=== PATIENT | female | born 1935 | race Hispanic/Latino ===

== ENCOUNTER 2018-11-05 16:03 | Inpatient (IN) | payer MEDICARE ==
[2018-11-05] MEDS ORDERED: NACL 0.9% 1000 ML IV ONE (16:18)
[2018-11-05] MEDS ORDERED: KEPPRA 1,000 MG/NS 0.75% 100ML 1,000 MG/100 ML BAG IV ONE (16:21)
[2018-11-05] MEDS ORDERED: VASELINE LIP THERAPY TP PRN (16:21)
[2018-11-05] MEDS ORDERED: ARTIFICIAL TEARS OPHTH OINT OU PRN (16:21)
[2018-11-05] MEDS ORDERED: ZEMURON IV ONE ×2 (16:21→17:40)
[2018-11-05] MEDS ORDERED: XYLOCAINE CARDIAC IV ONE ×2 (16:21→17:40)
[2018-11-05] MEDS ORDERED: AMIDATE IV ONE ×2 (16:21→17:40)
[2018-11-05] MEDS ORDERED: SUBLIMAZE IV PRN (16:21)
[2018-11-05] MEDS ORDERED: VERSED IV STA (16:23)
--- NOTE | 2018-11-05 16:49 | Emergency Department Report ---
ED Neuro Deficit HPI - General Stated Complaint: POSS HEART FAILURE Time Seen by Provider: 11/05/18 16:18 - History of Present Illness Initial Comments: [facility] Date of Service: 11/05/18 Impression: Seizure: no focal deficits seen on exam other then right beating nystagmus by ED MD. Patient was given paralytic prior to my exam so very limited. Seizure my be related to sepsis vs underlying structural lesion. - - - Not a tpa candidate due to: no focal deficits Presentation is not suggestive of Large Vessel Occlusive Disease. Thrombectomy would not be recommended. Comments: LKN: 13:00 Door time: 16:03 [facility] contacted: 16:27 [facility] at bedside:16:31 NIHSS assessment time: 17:01 Recommendations: -Load with Keppra -Seizure precautions -Sepsis treatment per primary team Inpatient neurology consultation Inpatient seizure evaluation as per Neurology/ Internal Medicine Discussed with ED MD Please call with questions Flori Christy, DO [employer] [facility] seizures History of Present Illness 82 yo F with no known medical history of seizures who is presenting with seizures. Per EMS, patient's son last saw her at her baseline at 13:00 and when he went in to check on her at 15:30 she was seizing. He called EMS and patient was unresponsive on their arrival. She had another generalized tonic clonic seizure en route and was given 2mg of ativan. She has remained unresponsive and was intubated on arrival due a agonal breathing. She was given paralytic for this. She was found to be febrile and is being treated for sepsis. 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 - Extensive amount of complex data reviewed. - High risk of complication and/or morbidity or mortality are associated with differential diagnostic considerations above. - There may be Uncertain outcome and increased probability of prolonged functional impairment or high probability of severe prolonged functional impairment associated with some of these differential diagnosis. Medical Data Reviewed: 1.Data reviewed include clinical labs, radiology, Medical Tests; 2.Tests results discussed w/performing or interpreting physician; 3.Obtaining/reviewing old medical records; 4.Obtaining case history from another source; 5.Independent review of image, tracing or specimen. Patient was informed the Neurology Consult would happen via TeleHealth consult by way of interactive audio and video telecommunications and consented to receiving care in this manner. ED Review of Systems ROS: Stated complaint: POSS HEART FAILURE Other details as noted in HPI ED Neuro Physical Exam - General Suspected Stroke: No - Lab Data Result diagrams: 11/05/18 16:31 Lab Results 11/05/18 Range/Units 16:31 WBC 4.9 (4.5-11.0) K/mm3 RBC 4.34 (3.65-5.03) M/mm3 Hgb 12.9 (10.1-14.3) gm/dl Hct 39.3 (30.3-42.9) % MCV 90 (79-97) fl MCH 30 (28-32) pg MCHC 33 (30-34) % RDW 14.5 (13.2-15.2) % Plt Count 139 L (140-440) K/mm3 Lymph % (Auto) 15.1 (13.4-35.0) % [place] % (Auto) 5.4 (0.0-7.3) % Eos % (Auto) 0.1 (0.0-4.3) % Baso % (Auto) 0.6 (0.0-1.8) % Lymph # 0.7 L (1.2-5.4) K/mm3 [place] # 0.3 (0.0-0.8) K/mm3 Eos # 0.0 (0.0-0.4) K/mm3 Baso # 0.0 (0.0-0.1) K/mm3 Seg Neutrophils % 78.8 H (40.0-70.0) % Seg Neutrophils # 3.9 (1.8-7.7) K/mm3 Critical care attestation.: If time is entered above; I have spent that time in minutes in the direct care of this critically ill patient, excluding procedure time. ED Disposition Clinical Impression: Seizure Disposition: DC-[id number] OP ADMIT IP TO THIS HOSP Is pt being admited?: Yes Condition: Stable Referrals: CHARLOTTE CLIFFORD MD [Primary Care Provider] - 3-5 Days
[2018-11-05 16:51] LABS: Basophils % (Auto) 0.6 % (0.0-1.8); Eosinophils % (Auto) 0.1 % (0.0-4.3); Hematocrit 39.3 % (30.3-42.9); Hemoglobin 12.9 gm/dl (10.1-14.3); Lymphocytes # (Auto) 0.7 K/mm3 (1.2-5.4); Lymphocytes % (Auto) 15.1 % (13.4-35.0); Mean Corpuscular HGB Conc 33 % (30-34); Mean Corpuscular Volume 90 fl (79-97); Monocytes # (Auto) 0.3 K/mm3 (0.0-0.8); Monocytes % (Auto) 5.4 % (0.0-7.3); Platelet Count 139 K/mm3 (140-440); Red Blood Count 4.34 M/mm3 (3.65-5.03); Red Cell Distribution Width 14.5 % (13.2-15.2)
[2018-11-05] MEDS ORDERED: ROCEPHIN/NS 2 GM/100 ML 2 GM/100 ML BAG IV SCH (17:00)
[2018-11-05] MEDS ORDERED: ATIVAN 100 MG in NACL 0.9% 50 ML, VIAFLEX EMPTY CONTAINER 0 ML IV SCH (17:00)
[2018-11-05 17:11] LABS: Albumin 3.6 g/dL (3.9-5); Calcium 10.9 mg/dL (8.4-10.2)
--- NOTE | 2018-11-05 17:20 | Emergency Department Report ---
ED General Adult HPI - General Chief complaint: Altered Mental Status Stated complaint: POSS HEART FAILURE Time Seen by Provider: 11/05/18 16:18 Source: EMS (verbal report received from EMS.ems notes not available at time of chart dictation), RN notes reviewed Mode of arrival: Stretcher Limitations: Altered Mental Status, Physical Limitation - History of Present Illness Initial comments: This is an 82-year-old female. The patient is not known to this provider previously. We do not know the details of her past medical history. Advanced directives are not known by EMS. Family is not currently present. Patient is altered and obtunded, history obtained entirely from EMS. As per verbal report from emergency medical services, last known well time of the patient is 1:00 PM, with family noticed her walking without difficulty. Then, at 15:31, EMS was dispatched for unresponsiveness. Apparently, patient found in bed, with a chief complaint of altered mental status. EMS documents the patient was found awake but unresponsive with snoring type respirations. Apparently, patient's family member came to check on her, and found her seizing in bed. She apparently has a history of hypertension, high cholesterol and possible CHF. Initially, patient was found to have a pulse of 170 bpm, with normal Accu-Chek. Patient sees in the field with EMS, and they gave her 2 mg of Ativan. On arrival to the ER, the patient is obtunded, GCS of 3. Her eyes have a right beating nystagmus. She is given 2 mg of Versed by myself. Patient placed on a nasal cannula at 15 L/m, her head and neck are positioned to allow for passive oxygenation by ER staff, a head of bed is elevated to 45 while ER team keep the patient's head and neck elevated. The patient is then intubated by myself with 1 attempt with no difficulty. She is found to be febrile to 102.2. She is called as a code sepsis and code stroke overhead. [facility] Patient seen and evaluated by stroke neurology, Dr. Christy, who agreed with me that the patient is not a TPA candidate, and given fever, tachycardia, rhonchorous breath sounds, presumed seizures, infectious etiology likely. An emergent CT angiogram of the head and neck is not recommended. Noncontrast CT scan of the brain, abdomen soft pelvis negative for acute disease. X-ray of the chest suggests right upper lobe/right middle lobe infiltrate. Critical care physician is paged to arrange admission to the ICU. Hospital physician will be paged to range of motion to the ICU. No nystagmus noted currently. No family is available at this time to obtain collateral information. -: unknown Radiation: other Quality: other Consistency: other Improves with: other Worsens with: other Associated Symptoms: other - Related Data Allergies Allergy/AdvReac Type Severity Reaction Status Date / Time Unable to Assess Allergy Unverified 11/05/18 17:24 ED Review of Systems ROS: Stated complaint: POSS HEART FAILURE Other details as noted in HPI Comment: Unobtainable due to pts medical conditions ED Physical Exam - General Limitations: Altered Mental Status General appearance: obtunded - Head Head exam: Present: atraumatic, normocephalic - Eye Eye exam: Present: normal appearance - ENT ENT exam: Present: mucous membranes dry - Neck Neck exam: Present: normal inspection, full ROM - Respiratory Respiratory exam: Present: respiratory distress, rhonchi - Cardiovascular Cardiovascular Exam: Present: normal rhythm, tachycardia, normal heart sounds. Absent: bradycardia, systolic murmur, diastolic murmur, rubs, gallop - GI/Abdominal GI/Abdominal exam: Present: soft. Absent: distended, tenderness, guarding, rebound, rigid, pulsatile mass - Rectal Rectal exam: Present: normal inspection, normal rectal tone. Absent: heme (-) stool - External exam: Present: normal external exam - Extremities Exam Extremities exam: Present: normal inspection, pedal edema, other (2+ pulses noted in the bilateral upper, lower extremities. Compartments soft. No long bony tenderness. The pelvis is stable.). Absent: calf tenderness - Back Exam Back exam: Absent: tenderness, CVA tenderness (R), CVA tenderness (L), paraspinal tenderness, vertebral tenderness - Neurological Exam Neurological exam: Present: altered - Psychiatric Psychiatric exam: Present: normal affect, normal mood, other (patient is no nverbal) - Skin Skin exam: Present: warm. Absent: rash ED Course Vital Signs 11/05/18 11/05/18 11/05/18 16:03 16:22 17:05 Temperature 102.2 F H Pulse Rate 128 H 135 H 120 H Respiratory 19 12 Rate Blood Pressure 152/131 Blood Pressure 102/68 [Left] O2 Sat by Pulse 98 99 99 Oximetry 11/05/18 11/05/18 11/05/18 17:16 17:30 17:46 Temperature Pulse Rate 132 H 128 H 138 H Respiratory 12 14 15 Rate Blood Pressure 152/131 196/161 Blood Pressure [Left] O2 Sat by Pulse 98 99 99 Oximetry 11/05/18 11/05/18 11/05/18 18:00 18:16 18:30 Temperature Pulse Rate 121 H 132 H 128 H Respiratory 17 12 19 Rate Blood Pressure 153/124 153/124 Blood Pressure [Left] O2 Sat by Pulse 100 97 100 Oximetry 11/05/18 11/05/18 11/05/18 18:46 19:00 19:01 Temperature Pulse Rate 134 H 128 H 113 H Respiratory 13 18 Rate Blood Pressure 191/159 191/159 192/98 Blood Pressure [Left] O2 Sat by Pulse 99 99 99 Oximetry 11/05/18 11/05/18 11/05/18 19:15 19:30 19:45 Temperature Pulse Rate 110 H 102 H 101 H Respiratory 18 18 18 Rate Blood Pressure 160/83 160/83 179/88 Blood Pressure [Left] O2 Sat by Pulse 97 99 95 Oximetry 11/05/18 11/05/18 11/05/18 20:00 20:15 20:30 Temperature Pulse Rate 94 H 90 85 Respiratory 18 18 18 Rate Blood Pressure 179/88 173/70 173/70 Blood Pressure [Left] O2 Sat by Pulse 99 97 99 Oximetry 11/05/18 20:46 Temperature Pulse Rate 85 Respiratory 18 Rate Blood Pressure 179/80 Blood Pressure [Left] O2 Sat by Pulse 96 Oximetry - Reevaluation(s) Reevaluation #1: 11/05/18 17:40 Differential diagnosis including but not limited to: Pneumonia, urinary tract infection, status epilepticus, seizures, intracranial hemorrhage, intra- abdominal hemorrhage, bacteremia, viremia Assessment and plan: 82-year-old female with respiratory failure, resolved convulsive activity, ear, tachycardia, lactic acidosis, meets sepsis/systemic inflammatory response syndrome criteria. Macrolide and fluoroquinolone antibiotics will be held as they may lower the seizure threshold, and patient will be given ceftriaxone and doxycycline. Critical care physician is paged to arrange admission to the ICU. Hospital physician will be paged to arrange admission to the ICU. Not a TPA candidate for aforementioned reasons. 11/05/18 17:49 Dr David Oquendo to admit to the icu Reevaluation #2: 11/05/18 18:50 Dr Johana Comer agrees with placement into the intensive care unit, and indicates that she will follow in consultation. Reevaluation #3: 11/05/18 22:35 Tachycardia resolved. Lactic acidosis resolved. Patient comfortable on vent. Urinalysis suggests urinary tract infection. Awaiting ICU bed placement. Extensive discussion had with family regarding patient's presentation, and prognosis. Prognosis guarded at this time. - EJ/Peripheral Line Neck R Time Out Performed: Yes Indications: multiple IV sites needed Skin Cleansed in Sterile Fashion: Yes Size: 18 Dressing Placed: Tegaderm Patient Tolerated Procedure: well - Intubation Time Out Performed: Yes Sedative: Etomidate Mg Given: 20 Paralytic: Rocuronium Mg Given: 100 Laryngoscope: Cristino Size: 3 ET Tube Size: 7.5 Tube Secured Depth (cm): 23 Tube Secured Location: teeth Tube Placement Confirmation: visualized tube passing t, equal breath sounds bilat, no breath sounds over epi, confirmation by capnometr Patient Tolerated Procedure: well Intubation Complications: none Additional Comments: Patient placed on a nasal cannula at 15 L/m. Received [id number] ventil ation. Does not desaturate. Vocal cords easily identified, after direct laryngoscopy performed with a Cristino 3 blade, and a 7.5 endotracheal tube is inserted with 1 attempt with no difficulty. ED Medical Decision Making - Lab Data Result diagrams: 11/05/18 16:31 11/05/18 16:31 Vital Signs 11/05/18 11/05/18 16:03 16:22 Temperature 102.2 F H Pulse Rate 128 H 135 H Respiratory 25 H Rate Blood Pressure 152/131 Blood Pressure 102/68 [Left] O2 Sat by Pulse 99 99 Oximetry Lab Results 11/05/18 11/05/18 11/05/18 Range/Units 16:31 16:31 16:31 WBC 4.9 (4.5-11.0) K/mm3 RBC 4.34 (3.65-5.03) M/mm3 Hgb 12.9 (10.1-14.3) gm/dl Hct 39.3 (30.3-42.9) % MCV 90 (79-97) fl MCH 30 (28-32) pg MCHC 33 (30-34) % RDW 14.5 (13.2-15.2) % Plt Count 139 L (140-440) K/mm3 Lymph % (Auto) 15.1 (13.4-35.0) % [place] % (Auto) 5.4 (0.0-7.3) % Eos % (Auto) 0.1 (0.0-4.3) % Baso % (Auto) 0.6 (0.0-1.8) % Lymph # 0.7 L (1.2-5.4) K/mm3 [place] # 0.3 (0.0-0.8) K/mm3 Eos # 0.0 (0.0-0.4) K/mm3 Baso # 0.0 (0.0-0.1) K/mm3 Seg Neutrophils % 78.8 H (40.0-70.0) % Seg Neutrophils # 3.9 (1.8-7.7) K/mm3 Sodium 148 H (137-145) mmol/L Potassium 3.2 L (3.6-5.0) mmol/L Chloride 110.6 H (98-107) mmol/L Carbon Dioxide 17 L (22-30) mmol/L Anion Gap 24 mmol/L BUN 18 H (7-17) mg/dL Creatinine 1.9 H (0.7-1.2) mg/dL Estimated GFR 25 ml/min BUN/Creatinine Ratio 9 % Glucose 205 H (65-100) mg/dL Lactic Acid 8.20 H* (0.7-2.0) mmol/L Calcium 10.9 H (8.4-10.2) mg/dL Magnesium (1.7-2.3) mg/dL Total Bilirubin 0.50 (0.1-1.2) mg/dL AST 24 (5-40) units/L ALT 20 (7-56) units/L Alkaline Phosphatase 54 (35-129) units/L Total Creatine Kinase (30-135) units/L Troponin T 0.019 (0.00-0.029) ng/mL Total Protein 6.8 (6.3-8.2) g/dL Albumin 3.6 L (3.9-5) g/dL Albumin/Globulin Ratio 1.1 % Salicylates (2.8-20.0) mg/dL Acetaminophen (10.0-30.0) ug/mL Plasma/Serum Alcohol (0-0.07) % 11/05/18 11/05/18 11/05/18 Range/Units 16:31 16:31 16:31 WBC (4.5-11.0) K/mm3 RBC (3.65-5.03) M/mm3 Hgb (10.1-14.3) gm/dl Hct (30.3-42.9) % MCV (79-97) fl MCH (28-32) pg MCHC (30-34) % RDW (13.2-15.2) % Plt Count (140-440) K/mm3 Lymph % (Auto) (13.4-35.0) % [place] % (Auto) (0.0-7.3) % Eos % (Auto) (0.0-4.3) % Baso % (Auto) (0.0-1.8) % Lymph # (1.2-5.4) K/mm3 [place] # (0.0-0.8) K/mm3 Eos # (0.0-0.4) K/mm3 Baso # (0.0-0.1) K/mm3 Seg Neutrophils % (40.0-70.0) % Seg Neutrophils # (1.8-7.7) K/mm3 Sodium (137-145) mmol/L Potassium (3.6-5.0) mmol/L Chloride (98-107) mmol/L Carbon Dioxide (22-30) mmol/L Anion Gap mmol/L BUN (7-17) mg/dL Creatinine (0.7-1.2) mg/dL Estimated GFR ml/min BUN/Creatinine Ratio % Glucose (65-100) mg/dL Lactic Acid (0.7-2.0) mmol/L Calcium (8.4-10.2) mg/dL Magnesium 2.20 (1.7-2.3) mg/dL Total Bilirubin (0.1-1.2) mg/dL AST (5-40) units/L ALT (7-56) units/L Alkaline Phosphatase (35-129) units/L Total Creatine Kinase < 7 L (30-135) units/L Troponin T (0.00-0.029) ng/mL Total Protein (6.3-8.2) g/dL Albumin (3.9-5) g/dL Albumin/Globulin Ratio % Salicylates < 0.3 L (2.8-20.0) mg/dL Acetaminophen < 5.0 L (10.0-30.0) ug/mL Plasma/Serum Alcohol (0-0.07) % 11/05/18 Range/Units 16:31 WBC (4.5-11.0) K/mm3 RBC (3.65-5.03) M/mm3 Hgb (10.1-14.3) gm/dl Hct (30.3-42.9) % MCV (79-97) fl MCH (28-32) pg MCHC (30-34) % RDW (13.2-15.2) % Plt Count (140-440) K/mm3 Lymph % (Auto) (13.4-35.0) % [place] % (Auto) (0.0-7.3) % Eos % (Auto) (0.0-4.3) % Baso % (Auto) (0.0-1.8) % Lymph # (1.2-5.4) K/mm3 [place] # (0.0-0.8) K/mm3 Eos # (0.0-0.4) K/mm3 Baso # (0.0-0.1) K/mm3 Seg Neutrophils % (40.0-70.0) % Seg Neutrophils # (1.8-7.7) K/mm3 Sodium (137-145) mmol/L Potassium (3.6-5.0) mmol/L Chloride (98-107) mmol/L Carbon Dioxide (22-30) mmol/L Anion Gap mmol/L BUN (7-17) mg/dL Creatinine (0.7-1.2) mg/dL Estimated GFR ml/min BUN/Creatinine Ratio % Glucose (65-100) mg/dL Lactic Acid (0.7-2.0) mmol/L Calcium (8.4-10.2) mg/dL Magnesium (1.7-2.3) mg/dL Total Bilirubin (0.1-1.2) mg/dL AST (5-40) units/L ALT (7-56) units/L Alkaline Phosphatase (35-129) units/L Total Creatine Kinase (30-135) units/L Troponin T (0.00-0.029) ng/mL Total Protein (6.3-8.2) g/dL Albumin (3.9-5) g/dL Albumin/Globulin Ratio % Salicylates (2.8-20.0) mg/dL Acetaminophen (10.0-30.0) ug/mL Plasma/Serum Alcohol < 0.01 (0-0.07) % - EKG Data -: EKG Interpreted by Ne Rate: tachycardia - EKG Data When compared to previous EKG there are: previous EKG unavailable 11/05/18 17:40 This is a sinus tachycardia, 124 bpm, normal axis, QTC prolonged, left ventricular voltage/hypertrophy, incomplete right bundle-branch block, the EKG is not consistent with an ST elevation myocardial infarction. There is no prior for comparison. - Radiology Data Radiology results: report reviewed, image reviewed Print Report Referring Physician: MONIQUE DEL CID Patient Name: MIR BANEGAS Date of : 1935 Sex: Female Report Date: 2018-11-05 Report Status: Finalized Findings [facility] [address] [place] [address] Cat Scan Report Signed Patient: MIR BANEGAS MR#: [id number] : 1935 Acct:[id number] Age/Sex: 82 / F ADM Date: 11/05/18 Loc: ED Attending Dr: Ordering Physician: MONIQUE DEL CID MD Date of Service: 11/05/18 Procedure(s): CT abdomen pelvis wo con Accession Number(s): [id number] cc: MONIQUE DEL CID MD CT ABDOMEN AND PELVIS WITHOUT CONTRAST HISTORY: ams fever sz rph, may be on anticoagulation. COMPARISON: None. TECHNIQUE: CT images of the abdomen and pelvis were obtained without administration of intravenous contrast. All CT scans at this location are performed using CT dose reduction for ALARA by means of automated exposure control. 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 Degenerative changes are also present within the pelvis. No acute osseous abnormality identified. Mild bibasilar atelectasis is present Abdomen/pelvis: The gallbladder is mildly distended with minimal cholelithiasis but there is no surrounding inflammatory change. The liver, spleen, pancreas, adrenals, kidneys, and proximal GI tract show no acute abnormality. The urinary bladder is partially collapsed but otherwise unremarkable. Uterus is surgically absent. No acute colonic abnormality identified. No retroperitoneal hematoma. IMPRESSION: 1. No acute abnormality identified. 2. Incidental findings as above. Findings were discussed with Dr. Del Cid at 4:15 PM today. Signer Name: Ross Isabel MD Signed: 11/05/2018 5:21 PM Workstation Name: [id number] Transcribed By: SANDRA Dictated By: Ross Isabel MD Electronically Authenticated By: Ross Isabel MD Signed Date/Time: 11/05/18 172 DD/ 1718 Print Report Referring Physician: MONIQUE DEL CID Patient Name: MIR BANEGAS Date of : 1935 Sex: Female Report Date: 2018-11-05 Report Status: Finalized Findings [facility] [address] [place] [address] Cat Scan Report Signed Patient: MIR BANEGAS MR#: [id number] : 1935 Acct:[id number] Age/Sex: 82 / F ADM Date: 11/05/18 Loc: ED Attending Dr: Ordering Physician: MONIQUE DEL CID MD Date of Service: 11/05/18 Procedure(s): CT head/brain wo con Accession Number(s): [id number] cc: MONIQUE DEL CID MD CT head without contrast HISTORY: ams fever sz. Code stroke TECHNIQUE: Axial imaging performed from the skull apex through the skull base without the use of contrast. All CT scans at this location are performed using CT dose reduction for ALARA by means of automated exposure control. COMPARISON: None FINDINGS: Parenchyma: No acute intracranial hemorrhage or parenchymal abnormality. Ventricles: There is mild diffuse brain atrophy with commensurate ventricular enlargement which is likely age appropriate. Soft tissues: Soft tissues including the orbits appear normal. Bones: No acute osseous abnormality. Sinuses: There is near complete opacification of the right maxillary sinus, sphenoid sinus, and a few ethmoid air cells consistent with chronic sinus disease. Remaining sinuses and mastoid air cells are clear. IMPRESSION: 1. No acute intracranial abnormality identified. No acute hemorrhage. 2. Paranasal sinus disease. Findings were called to Dr. Del Cid at 1610 hrs today.. Signer Name: Ross Isabel MD Signed: 11/05/2018 5:15 PM Workstation Name: [id number] Transcribed By: SANDRA Dictated By: Ross Isabel MD Electronically Authenticated By: Ross Isabel MD Signed Date/Time: 11/05/18 1715 Print Report Referring Physician: MONIQUE DEL CID Patient Name: MIR BANEGAS Date of : 1935 Sex: Female Report Date: 2018-11-05 Report Status: Finalized Findings [facility] [address] [place] [address] XRay Report Signed Patient: MIR BANEGAS MR#: [id number] : 1935 Acct:[id number] Age/Sex: 82 / F ADM Date: 11/05/18 Loc: ED Attending Dr: Ordering Physician: MONIQUE DEL CID MD Date of Service: 11/05/18 Procedure(s): XR chest 1V ap Accession Number(s): [id number] cc: MONIQUE DEL CID MD Fluoro Time In Minutes: CHEST 1 VIEW 11/05/2018 4:29 PM INDICATION / CLINICAL INFORMATION: ETT placement. COMPARISON: None available. FINDINGS: SUPPORT DEVICES: ET tube has been placed with the tip projecting in good positi on at the level of the clavicular heads. HEART / MEDIASTINUM: Normal heart size. Atherosclerosis in the thoracic aorta. LUNGS / PLEURA: Trace left basilar subsegmental atelectasis. No focal conso lidation or significant effusion. No pneumothorax. ADDITIONAL FINDINGS: No significant additional findings. IMPRESSION: 1. ET tube tip appears in good position projecting at the level of the cla vicular heads. Signer Name: Byron Monahan MD Signed: 11/05/2018 5:29 PM Workstation Name: [id number] Transcribed By: ANGELO Dictated By: Byron Monahan MD Electronically Authenticated By: Byron Monahan MD Signed Date/Time: 11/05/18 1729 Critical Care Time: Yes Critical care time in (mins) excluding proc time.: 60 Critical care attestation.: If time is entered above; I have spent that time in minutes in the direct care of this critically ill patient, excluding procedure time. ED Disposition Clinical Impression: Seizure Sepsis Qualifiers: Sepsis type: sepsis due to unspecified organism Qualified Code(s): A41.9 - Sepsis, unspecified organism Respiratory failure Qualifiers: Chronicity: acute Respiratory failure complication: unspecified whether with hypoxia or hypercapnia Qualified Code(s): J96.00 - Acute respiratory failure, unspecified whether with hypoxia or hypercapnia Disposition: OP ADMIT IP TO THIS HOSP Is pt being admited?: Yes Condition: Critical
--- NOTE | 2018-11-05 17:26 | Cat Scan Report ---
CT ABDOMEN AND PELVIS WITHOUT CONTRAST HISTORY: ams fever sz rph, may be on anticoagulation. COMPARISON: None. TECHNIQUE: CT images of the abdomen and pelvis were obtained without administration of intravenous co ntrast. All CT scans at this location are performed using CT dose reduction for ALARA by means of au tomated exposure control. FINDINGS: Lungs/bones: There is moderate levoscoliosis centered at the thoracolumbar junction and moderate mul tilevel discogenic DJD within the spine. Degenerative changes are also present within the pelvis. No acute osseous abnormality identified. Mild bibasilar atelectasis is present Abdomen/pelvis: The gallbladder is mildly distended with minimal cholelithiasis but there is no surro unding inflammatory change. The liver, spleen, pancreas, adrenals, kidneys, and proximal GI tract mathew w no acute abnormality. The urinary bladder is partially collapsed but otherwise unremarkable. Uterus is surgically absent. N o acute colonic abnormality identified. No retroperitoneal hematoma. IMPRESSION: 1. No acute abnormality identified. 2. Incidental findings as above. Findings were discussed with Dr. Del Cid at 4:15 PM today. Signer Name: Ross Isabel MD Signed: 11/05/2018 5:21 PM Workstation Name: [id number]
--- NOTE | 2018-11-05 17:34 | XRay Report ---
CHEST 1 VIEW 11/05/2018 4:29 PM INDICATION / CLINICAL INFORMATION: ETT placement. COMPARISON: None available. FINDINGS: SUPPORT DEVICES: ET tube has been placed with the tip projecting in good position at the level of the clavicular heads. HEART / MEDIASTINUM: Normal heart size. Atherosclerosis in the thoracic aorta. LUNGS / PLEURA: Trace left basilar subsegmental atelectasis. No focal consolidation or significant ef fusion. No pneumothorax. ADDITIONAL FINDINGS: No significant additional findings. IMPRESSION: 1. ET tube tip appears in good position projecting at the level of the clavicular heads. Signer Name: Byron Monahan MD Signed: 11/05/2018 5:29 PM Workstation Name: [id number]
[2018-11-05] MEDS ORDERED: VERSED IV ONE (17:40)
--- NOTE | 2018-11-05 17:50 | History and Physical Report ---
History of Present Illness Chief complaint: Unresponsive History of present illness: 82 YO Female presents to ED for evaluation. Pt is intubated at time of my exam and unable to provide history. Pt history taken from EMS and ED staff. As per staff, the patient was in her usual state of health as per family around 130 0hrs. Pt family found the patient down and unresponsive and reports seizure like activity and subsequently notified EMS at 1531 hrs. Upon arrival the patient was found to be unresponsive with GCS of 3. Pt transported to [facility]. Pt seen and evaluated in ED and a code Sepsis was called. Pt was found to have a fever of 102.2, Sepsis, and Encephalopathy. Pt is found to also have Acute Hypoxemic Respiratory Failure, and is unable to protect her airway, and was intubated and placed on ventilatory support. No further history obtainable. Teleneurology consulted in ED. Pt deemed not a candidate for TPA. No prior admission for review. No medication listed at time of admission for reconciliation. Q SOFA S core: 5 at time of admission. Past History Past Medical History: No medical history, other (UTO) Past Surgical History: No surgical history, Other (UTO) Social history: . denies: smoking, alcohol abuse, prescription drug abuse Family history: no significant family history (UTO) Medications and Allergies Allergies Allergy/AdvReac Type Severity Reaction Status Date / Time No Known Allergies Allergy Verified 11/06/18 05:50 Active Meds: Active Medications Fentanyl (Sublimaze) 50 mcg IV Q10MIN PRN PRN Reason: ANALGESIA Hydrophilic Ointment (Vaseline Lip Therapy) 1 applic TP Q2HR PRN PRN Reason: Dry Lips Ceftriaxone Sodium (Rocephin/Ns 2 Gm/100 Ml) 2 gm in 100 mls @ 200 mls/hr IV NOW NIKKO; Protocol Stop: 11/05/18 19:00 Fentanyl Citrate (Fentanyl Drip Premix) 2,000 mcg in 100 mls @ 3.485 mls/hr IV TITR NIKKO; Protocol Lorazepam 100 mg/ Sodium Chloride/ Miscellaneous Information 100 mls @ 1 mls/hr IV TITR NIKKO; Protocol Potassium Chloride (Kcl 10meq/100ml) 10 meq in 100 mls @ 100 mls/hr IV Q1H NIKKO Stop: 11/05/18 20:59 Doxycycline Hyclate 100 mg/ (Sodium Chloride) 250 mls @ 250 mls/hr IV ONCE ONE; Protocol Stop: 11/05/18 19:31 Lorazepam (Ativan) 2 mg IV Q10MIN PRN PRN Reason: Agitation Multi-Ingred Cream/Lotion/Oil/Oint (Artificial Tears Ophth Oint) 1 applic OU Q4HR PRN PRN Reason: Dry Eye(s) Review of Systems ROS unobtainable: due to endotracheal tube Exam - Constitutional Vitals: Temp Pulse Resp BP Pulse Ox 102.2 F H 135 H 25 H 152/131 99 11/05/18 16:03 11/05/18 16:22 11/05/18 16:03 11/05/18 16:22 11/05/18 16:22 General appearance: Present: severe distress - EENT Eyes: Present: miosis - Neck Neck: Present: supple, normal ROM - Respiratory Respiratory effort: labored Respiratory: bilateral: diminished, rhonchi - Cardiovascular Heart Sounds: Present: S1 & S2. Absent: rub, click - Extremities Extremities: pulses symmetrical, No edema Peripheral Pulses: abnormal (capillary refill greater than 3.5 seconds) - Abdominal General gastrointestinal: Present: soft, non-tender, non-distended, normal bowel sounds Female genitourinary: Present: normal - Integumentary Integumentary: Present: clear, dry - Musculoskeletal Musculoskeletal: generalized weakness - Psychiatric Psychiatric: no appropriate mood/affect, no intact judgment & insight, no memory intact - Neurologic Neurologic: CNII-XII intact, moves all extremities, no gait normal Results - Labs CBC & Chem 7: 11/06/18 04:09 11/06/18 04:09 Labs: Abnormal lab results 11/05/18 11/05/18 11/05/18 Range/Units 16:31 16:31 16:31 Plt Count 139 L (140-440) K/mm3 Lymph # 0.7 L (1.2-5.4) K/mm3 Seg Neutrophils % 78.8 H (40.0-70.0) % POC ABG pCO2 (35-45) POC ABG pO2 (80-105) Sodium 148 H (137-145) mmol/L Potassium 3.2 L (3.6-5.0) mmol/L Chloride 110.6 H (98-107) mmol/L Carbon Dioxide 17 L (22-30) mmol/L BUN 18 H (7-17) mg/dL Creatinine 1.9 H (0.7-1.2) mg/dL Glucose 205 H (65-100) mg/dL Lactic Acid 8.20 H* (0.7-2.0) mmol/L Calcium 10.9 H (8.4-10.2) mg/dL Total Creatine Kinase (30-135) units/L Albumin 3.6 L (3.9-5) g/dL Salicylates (2.8-20.0) mg/dL Acetaminophen (10.0-30.0) ug/mL 11/05/18 11/05/18 11/05/18 Range/Units 16:31 16:31 16:31 Plt Count (140-440) K/mm3 Lymph # (1.2-5.4) K/mm3 Seg Neutrophils % (40.0-70.0) % POC ABG pCO2 (35-45) POC ABG pO2 (80-105) Sodium (137-145) mmol/L Potassium (3.6-5.0) mmol/L Chloride (98-107) mmol/L Carbon Dioxide (22-30) mmol/L BUN (7-17) mg/dL Creatinine (0.7-1.2) mg/dL Glucose (65-100) mg/dL Lactic Acid (0.7-2.0) mmol/L Calcium (8.4-10.2) mg/dL Total Creatine Kinase < 7 L (30-135) units/L Albumin (3.9-5) g/dL Salicylates < 0.3 L (2.8-20.0) mg/dL Acetaminophen < 5.0 L (10.0-30.0) ug/mL 11/05/18 Range/Units 17:42 Plt Count (140-440) K/mm3 Lymph # (1.2-5.4) K/mm3 Seg Neutrophils % (40.0-70.0) % POC ABG pCO2 33.4 L (35-45) POC ABG pO2 136 H (80-105) Sodium (137-145) mmol/L Potassium (3.6-5.0) mmol/L Chloride (98-107) mmol/L Carbon Dioxide (22-30) mmol/L BUN (7-17) mg/dL Creatinine (0.7-1.2) mg/dL Glucose (65-100) mg/dL Lactic Acid (0.7-2.0) mmol/L Calcium (8.4-10.2) mg/dL Total Creatine Kinase (30-135) units/L Albumin (3.9-5) g/dL Salicylates (2.8-20.0) mg/dL Acetaminophen (10.0-30.0) ug/mL Assessment and Plan - Patient Problems (1) Sepsis Current Visit: Yes Status: Acute Qualifiers: Sepsis type: sepsis due to unspecified organism Qualified Code(s): A41.9 - Sepsis, unspecified organism Plan to address problem: Admit to ICU: Sepsis protocol: IVF resuscitation therapy, IV antibiotic therapy, serial bmp, CBC, chest x ray, influenza swab, urinalysis, blood cultures, The high probability of a clinically significant, sudden or life threatening deterioration of the [Neuro, cardiac, respiratory, renal] system(s) required my full and direct attention, intervention and personal management. The aggregate critical care time was [65] minutes. This time is in addition to time spent performing reported procedures but includes the following: [x] Data Review and interpretation [x] Patient assessment and monitoring of vital signs [x] Documentation [x] Medication orders and management (2) Respiratory failure Current Visit: Yes Status: Acute Qualifiers: Chronicity: acute Respiratory failure complication: unspecified whether with hypoxia or hypercapnia Qualified Code(s): J96.00 - Acute respiratory failure, unspecified whether with hypoxia or hypercapnia Plan to address problem: Pt intubated, placed on vent support: Wean vent as tolerated, pulmonology team consulted in ED, chest x ray, ABG, Daily SBT, sedation holiday, (3) Encephalopathy Current Visit: Yes Status: Acute Plan to address problem: CT Head, neuro check, supportive care, treat sepsis (4) ARF (acute renal failure) Current Visit: Yes Status: Acute Qualifiers: Acute renal failure type: with acute tubular necrosis Qualified Code(s): N17.0 - Acute kidney failure with tubular necrosis Plan to address problem: IVF resuscitation therapy, monitor uop q shift urine electrolytes, monitor serum creatnine, avoid nephrotoxic agents. (5) Acidosis Current Visit: Yes Status: Acute Plan to address problem: IVF resuscitation therapy, repeat bmp, serial lactic acid level. (6) Hypokalemia Current Visit: Yes Status: Acute Plan to address problem: repeat bmp, supportive care. (7) Hypernatremia Current Visit: Yes Status: Acute Plan to address problem: IVF resuscitation therapy, monitor with repeat bmp. (8) DVT prophylaxis Current Visit: Yes Status: Acute Plan to address problem: SCD to BLE while in bed, Prophylactic heparin
[2018-11-05] MEDS: ATIVAN IV PRN (17:51)
[2018-11-05] MEDS ORDERED: SODIUM CHLORIDE FLUSH SYRINGE 10 ML IV PRN (17:52)
[2018-11-05] MEDS ORDERED: PROVENTIL IH PRN (17:52)
[2018-11-05] MEDS ORDERED: VANCOMYCIN 1,500 MG in NACL 0.9% 500 ML 500 ML IV ONE ×2 (17:55→18:30)
[2018-11-05] MEDS ORDERED: D50W (25GM) Syringe IV PRN (17:59)
[2018-11-05] MEDS ORDERED: VANCOMYCIN PHARMACY TO DOSE IV SCH (18:00)
[2018-11-05] MEDS ORDERED: DOXYCYCLINE HYCLATE 100 MG in NACL 0.9% 250ML 250 ML IV ONE (18:32)
[2018-11-05] MEDS ORDERED: fentaNYL DRIP Premix 2,000 MCG/100 ML BAG IV ONE (18:35)
[2018-11-05] MEDS ORDERED: ATIVAN ONE (18:35)
[2018-11-05] MEDS: fentaNYL DRIP Premix 2,000 MCG/100 ML BAG IV SCH (18:47)
[2018-11-05] MEDS ORDERED: KCL 10MEQ/100ML 10 MEQ/100 ML BAG IV ONE (19:33)
[2018-11-05] MEDS: KCL 10MEQ/100ML 10 MEQ/100 ML BAG IV SCH ×3 (19:39→22:45)
[2018-11-05] MEDS ORDERED: NACL 0.9% 1000 ML 2,000 ML ONE ×2 (20:27)
[2018-11-05] MEDS ORDERED: KCL 10MEQ/100ML 20 MEQ/200 ML BAG IV ONE (20:27)
[2018-11-05 21:08] LABS: Creatinine,Urine 166.9 mg/dL (0.1-20.0)
[2018-11-05 21:10] LABS: Bilirubin,Urine NEG (Negative); Blood,Urine SM (Negative); Color,Urine Yellow (Yellow); Mucus,Urine FEW /HPF; Urobilinogen,Urine < 2.0 mg/dL (<2.0)
[2018-11-05] MEDS: SODIUM CHLORIDE FLUSH SYRINGE 10 ML IV SCH (22:28)
[2018-11-05] MEDS: HumaLOG SUB-Q SCH (22:37)
[2018-11-05] MEDS ORDERED: APRESOLINE ONE (22:51)
[2018-11-05] MEDS: APRESOLINE IV PRN (22:51)
--- NOTE | 2018-11-06 03:02 | XRay Report ---
CHEST 1 VIEW INDICATION: follow up respiratory failure. COMPARISON: One day prior. FINDINGS: Support devices: Endotracheal tube is in satisfactory position. Thin catheter previously projecting o kris the neck adjacent to the endotracheal tube has been removed. Heart: Stable. Lungs/Pleura: There are mild atelectatic changes in the bases. IMPRESSION: 1. No acute findings. Signer Name: Corey Espino MD Signed: 11/06/2018 2:57 AM Workstation Name: [id number]
[2018-11-06 05:07] LABS: Basophils % (Auto) 0.3 % (0.0-1.8); Hematocrit 35.1 % (30.3-42.9); Hemoglobin 11.4 gm/dl (10.1-14.3); Lymphocytes % (Auto) 23.8 % (13.4-35.0); Mean Corpuscular HGB Conc 32 % (30-34); Mean Corpuscular Volume 92 fl (79-97); Monocytes # (Auto) 0.6 K/mm3 (0.0-0.8); Monocytes % (Auto) 13.2 % (0.0-7.3); Platelet Count 102 K/mm3 (140-440); Red Blood Count 3.83 M/mm3 (3.65-5.03); Red Cell Distribution Width 14.5 % (13.2-15.2)
[2018-11-06 05:17] LABS: Albumin 3.1 g/dL (3.9-5)
[2018-11-06] MEDS ORDERED: POTASSIUM CHLORIDE FEEDTUBE ONE (05:52)
--- NOTE | 2018-11-06 07:48 | Consultation ---
History of Present Illness Consult date: 11/06/18 History of present illness: HISTORY PER ED. PATIENT IS INTUBATED AND IS UNABLE TO PROVIDE ANY INFORMATION 82 YO Female presents to ED for evaluation. Pt is intubated at time of my exam and unable to provide history. Pt history taken from EMS and ED staff. As per staff, the patient was in her usual state of health as per family around 1300hrs. Pt family found the patient down and unresponsive and reports seizure like activity and subsequently notified EMS at 1531 hrs. Upon arrival the patient was found to be unresponsive with GCS of 3. Pt transported to [facility]. Pt seen and evaluated in ED and a code Sepsis was called. Pt was found to have a fever of 102.2, Sepsis, and Encephalopathy. Pt is found to also have Acute Hypoxemic Respiratory Failure, and is unable to protect her airway, and was intubated and placed on ventilatory support. No further history obtainable. Teleneurology consulted in ED. Pt deemed not a candidate for TPA. No prior admission for review. No medication listed at time of admission for reconciliation. Q SOFA Score: 5 at time of admission. I have been consulted for critical care management. Patient was seen and examined. Vitals, labs, medications, chart and imaging were reviewed. At [facility] time of evaluation, her son was at the bedside. He states his mother, had complained about generally feeling unwell over the last few days. 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 He states she did have weakness and up-rolling of the eyes when e went to vist her. He called EMS and was transported to the ER Past History Past Medical History: No medical history, other (UTO) Past Surgical History: No surgical history, Other (UTO) Social history: . denies: smoking, alcohol abuse, prescription drug abuse Family history: no significant family history (UTO) Medications and Allergies Allergies Allergy/AdvReac Type Severity Reaction Status Date / Time aspirin Allergy Unknown Verified 11/06/18 17:06 Home Medications Medication Instructions Recorded Confirmed Last Taken Type Carvedilol [Coreg] 25 mg PO BID 11/06/18 11/06/18 Unknown History Furosemide [Lasix TAB] 20 mg PO HS 11/06/18 11/06/18 Unknown History Furosemide [Lasix TAB] 40 mg PO QAM 11/06/18 11/06/18 Unknown History Gabapentin [Neurontin] 800 mg PO BID 11/06/18 11/06/18 Unknown History Pravastatin Sodium [Pravastatin] 20 mg PO DAILY 11/06/18 11/06/18 Unknown History Ropinirole HCl [Requip] 1 mg PO TID 11/06/18 11/06/18 Unknown History Brimonidine Tartrate [Brimonidine 1 drop OU BID 11/08/18 11/08/18 Unknown History Tartrate 0.2%] Active Meds: Active Medications Albuterol (Proventil) 2.5 mg IH Q3HRT PRN PRN Reason: Shortness Of Breath Dextrose (D50w (25gm) Syringe) 50 ml IV PRN PRN PRN Reason: Hypoglycemia Fentanyl (Sublimaze) 50 mcg IV Q10MIN PRN PRN Reason: ANALGESIA Heparin Sodium (Porcine) (Heparin) 5,000 unit SUB-Q Q12HR NIKKO Hydralazine HCl (Apresoline) 10 mg IV Q6HR PRN PRN Reason: Hypertension Last Admin: 11/05/18 22:51 Dose: 10 mg Documented by: Hydrophilic Ointment (Vaseline Lip Therapy) 1 applic TP Q2HR PRN PRN Reason: Dry Lips Fentanyl Citrate (Fentanyl Drip Premix) 2,000 mcg in 100 mls @ 3.485 mls/hr IV TITR NIKKO; Protocol Last Admin: 11/05/18 18:47 Dose: 1 mcg/kg/hr, 3.485 mls/hr Documented by: Lorazepam 100 mg/ Sodium Chloride/ Miscellaneous Information 100 mls @ 1 mls/hr IV TITR NIKKO; Protocol Last Titration: 11/05/18 22:44 Dose: 4 mg/hr, 4 mls/hr Documented by: Insulin Human Lispro (Humalog) 0 unit SUB-Q ACHS NIKKO; Protocol Last Admin: 11/05/18 22:37 Dose: Not Given Documented by: Lorazepam (Ativan) 2 mg IV Q10MIN PRN PRN Reason: Agitation Last Admin: 11/05/18 17:51 Dose: 2 mg Documented by: Multi-Ingred Cream/Lotion/Oil/Oint (Artificial Tears Ophth Oint) 1 applic OU Q4HR PRN PRN Reason: Dry Eye(s) Sodium Chloride (Sodium Chloride Flush Syringe 10 Ml) 10 ml IV BID NIKKO Last Admin: 11/05/18 22:28 Dose: 10 ml Documented by: Sodium Chloride (Sodium Chloride Flush Syringe 10 Ml) 10 ml IV PRN PRN PRN Reason: LINE FLUSH Review of Systems ROS unobtainable: due to endotracheal tube, due to mental status Physical Examination Vital signs: Vital Signs Temp Pulse Resp BP Pulse Ox 102.2 F H 128 H 25 H 102/68 99 11/05/18 16:03 11/05/18 16:03 11/05/18 16:03 11/05/18 16:03 11/05/18 16:03 Constitutional: appears uncomfortable, other (elderly looking CF, normocephalic and astraumatic with mildly increased respiratory effort on MVS) Eyes: non-icteric ENT: oropharynx moist, other (ETT 23 cm JORDAN) Neck: supple, no lymphadenopathy, no JVD, other (no thyromegaly) Effort: mildly labored Ascultation: Bilateral: diminished breath sounds, rhonchi (bases) Percussion: Bilateral: not dull Cardiovascular: regular rate and rhythm, murmur noted (systolic) Gastrointestinal: normoactive bowel sounds, soft, non-tender, non-distended Integumentary: normal Extremities: no cyanosis, no edema, pink and warm, pulses normal, no ischemia or petechiae Neurologic: , pupils equal and round, unable to assess Psychiatric: other (unable to assess re: AMS) Results - Laboratory Findings CBC and BMP: 11/10/18 09:52 11/10/18 09:52 ABG POC ABG pH 7.509 (7.35-7.45) H 11/06/18 05:05 POC ABG pO2 115 (80-105) H 11/06/18 05:05 POC ABG HCO3 19.6 (22-26 mml/L) 11/06/18 05:05 POC ABG Total CO2 20 (23-27mmol/L) 11/06/18 05:05 POC ABG O2 Sat 99 11/06/18 05:05 Abnormal lab findings: Abnormal Labs 11/05/18 11/05/18 11/05/18 16:31 16:31 16:31 WBC Plt Count 139 L [place] % (Auto) Lymph # 0.7 L Seg Neutrophils % 78.8 H POC ABG pH POC ABG pCO2 POC ABG pO2 Sodium 148 H Potassium 3.2 L Chloride 110.6 H Carbon Dioxide 17 L BUN 18 H Creatinine 1.9 H Glucose 205 H POC Glucose Lactic Acid 8.20 H* Calcium 10.9 H Total Creatine Kinase Total Protein Albumin 3.6 L Urine WBC (Auto) Urine Creatinine Salicylates Acetaminophen 11/05/18 11/05/18 11/05/18 16:31 16:31 16:31 WBC Plt Count [place] % (Auto) Lymph # Seg Neutrophils % POC ABG pH POC ABG pCO2 POC ABG pO2 Sodium Potassium Chloride Carbon Dioxide BUN Creatinine Glucose POC Glucose Lactic Acid Calcium Total Creatine Kinase < 7 L Total Protein Albumin Urine WBC (Auto) Urine Creatinine Salicylates < 0.3 L Acetaminophen < 5.0 L 11/05/18 11/05/18 11/05/18 17:29 17:42 20:47 WBC Plt Count [place] % (Auto) Lymph # Seg Neutrophils % POC ABG pH POC ABG pCO2 33.4 L POC ABG pO2 136 H Sodium Potassium Chloride Carbon Dioxide BUN Creatinine Glucose POC Glucose Lactic Acid 3.30 H* Calcium Total Creatine Kinase Total Protein Albumin Urine WBC (Auto) 19.0 H Urine Creatinine Salicylates Acetaminophen 11/05/18 11/05/18 11/06/18 20:47 22:42 04:09 WBC 4.4 L Plt Count 102 L [place] % (Auto) 13.2 H Lymph # 1.0 L Seg Neutrophils % POC ABG pH POC ABG pCO2 POC ABG pO2 Sodium Potassium Chloride Carbon Dioxide BUN Creatinine Glucose POC Glucose 121 H Lactic Acid Calcium Total Creatine Kinase Total Protein Albumin Urine WBC (Auto) Urine Creatinine 166.9 H Salicylates Acetaminophen 11/06/18 11/06/18 04:09 05:05 WBC Plt Count [place] % (Auto) Lymph # Seg Neutrophils % POC ABG pH 7.509 H POC ABG pCO2 POC ABG pO2 115 H Sodium 150 H Potassium 2.7 L* Chloride 118.2 H Carbon Dioxide 21 L BUN 21 H Creatinine 1.6 H Glucose 125 H POC Glucose Lactic Acid Calcium Total Creatine Kinase Total Protein 5.7 L Albumin 3.1 L Urine WBC (Auto) Urine Creatinine Salicylates Acetaminophen - Diagnostic Findings Chest x-ray: image reviewed (ETT in position, left lower lobe infiltrate) Assessment and Plan Acute Respiratory Failure with Hypoxia on MVS Sepsis, possible UTI, possible aspiration PNA-LLL infiltrate Possible Seizure Lactic Acidosis Hypernatermia Acute Metabolic Encephalopathy BRAD possible secondary to Ischemic ATN Thrombocytopenia -Continue with MVS support -VAP bundle addressed -continue bronchodilators with pulmonary hygiene per RT - Follow cultures, continue empiric antibiotic therapy -Free water for hypernatremia -Initiate enteral feeding, nutrition consult placed -Aspiration precautions with HOB >40 -Start free water flushes -VTE prophylaxis( SCDs for now, in view of thrombocytopenia) -Stress ulcer prophylaxis - Supplemental oxygen as needed to keep O2 sat's > 90% -Lung protective strategies - CXR and ABG in am -Accuchecks with glycemic control per SSI for target blood glucose <180mg/dL - Titrate sedation to RASS 0 to -1 - Prevention of delirium, maintenance of sleep-wake cycle - Azotemia per nephrology; continue gentle hydration - Avoid nephrotoxic agents, adjust all antibiotics and medications for CrCL and GFR -EEG ordered -Hold furosemide for now -Chronic home medications .... care plan discussed at length with son at bedside Discussed with ICU team during ICU-IDT rounds CONDITION: CRITICAL PROGNOSIS: GRAVE to GUARDED CODE STATUS: FULL CODE The high probability of a clinically significant, sudden or life-threatening deterioration of the [respiratory, renal and neurologic] system(s) required my full and direct attention, intervention and personal management. The aggregate critical care time was [75] minutes without overlap. Time includes spent on; [x] Data Review and interpretation [x] Patient assessment and monitoring of vital signs [x] Documentation [x] Medication orders and management
[2018-11-06] MEDS: HumaLOG SUB-Q SCH ×3 (08:31→18:56)
[2018-11-06] MEDS: D5/0.45NS 1,000 ML IV SCH (09:50)
[2018-11-06] MEDS: PEPCID IV SCH (09:51)
[2018-11-06] MEDS: POTASSIUM CHLORIDE FEEDTUBE SCH ×2 (09:51→13:56)
[2018-11-06] MEDS: HEPARIN SUB-Q SCH ×2 (09:51→21:08)
[2018-11-06] MEDS ORDERED: ROCEPHIN/NS 1 GM/50 ML 1 GM/50 ML BAG IV SCH (10:00)
[2018-11-06] MEDS: SODIUM CHLORIDE FLUSH SYRINGE 10 ML IV SCH ×2 (10:10→21:09)
--- NOTE | 2018-11-06 10:45 | XRay Report ---
PORTABLE ABDOMEN HISTORY: feeding tube, NGT placement. COMPARISON: None. FINDINGS: A nasogastric tube tip is in the midportion of the stomach in satisfactory position. Lung b ases are clear. Nonobstructive bowel gas pattern. No radiopaque urinary stone disease. IMPRESSION: Satisfactory placement of the NG tube. Signer Name: Zoltan Gotti MD Signed: 11/06/2018 10:41 AM Workstation Name: [id number]
--- NOTE | 2018-11-06 12:23 | Consultation ---
History of Present Illness - Reason for Consult Consult date: 11/06/18 Sepsis Requesting physician: RUDI FOLEY - History of Present Illness The patient is a 82-year-old female with hypertension, heart disease, hyperlipidemia, neuropathy who has been living with her and was his primary caregiver and apparently had not been feeling well for the last 1 week. Patient was noted to have a change in mental status, unresponsive and her son noted seizure-like activity and hence the EMS was called and patient was brought to the emergency room. Upon arrival, she was noted to have a GCS of 3, intubated for airway protection. She also had a fever of 102.2F. Stroke alert was also called, no TPA administered, not deemed to be an appropriate candidate. She is currently intubated, in ICU. No subsequent fevers, no hemodynamic instability. Remains unresponsive. History obtained by chart review as well as by discussing with the patient's bedside RN and the son present at the bedside. She was also noted to have lactic acidosis. Review of Systems: Unable to obtain due to mental status. Past History Past Medical History: No medical history, other (UTO) Past Surgical History: No surgical history, Other (UTO) Social history: . denies: smoking, alcohol abuse, prescription drug abuse Family history: no significant family history (UTO) Medications and Allergies Allergies Allergy/AdvReac Type Severity Reaction Status Date / Time No Known Allergies Allergy Verified 11/06/18 05:50 Active Meds: Active Medications Albuterol (Proventil) 2.5 mg IH Q3HRT PRN PRN Reason: Shortness Of Breath Dextrose (D50w (25gm) Syringe) 50 ml IV PRN PRN PRN Reason: Hypoglycemia Famotidine (Pepcid) 20 mg IV DAILY [facility] Last Admin: 11/06/18 09:51 Dose: 20 mg Documented by: Fentanyl (Sublimaze) 50 mcg IV Q10MIN PRN PRN Reason: ANALGESIA Heparin Sodium (Porcine) (Heparin) 5,000 unit SUB-Q Q12HR [facility] Last Admin: 11/06/18 09:51 Dose: 5,000 unit Documented by: Hydralazine HCl (Apresoline) 10 mg IV Q6HR PRN PRN Reason: Hypertension Last Admin: 11/05/18 22:51 Dose: 10 mg Documented by: Hydrophilic Ointment (Vaseline Lip Therapy) 1 applic TP Q2HR PRN PRN Reason: Dry Lips Fentanyl Citrate (Fentanyl Drip Premix) 2,000 mcg in 100 mls @ 3.485 mls/hr IV TITR [facility]; Protocol Last Titration: 11/06/18 09:45 Dose: 0 mcg/kg/hr, 0 mls/hr Documented by: Lorazepam 100 mg/ Sodium Chloride/ Miscellaneous Information 100 mls @ 1 mls/hr IV TITR [facility]KKO; Protocol Last Titration: 11/06/18 08:22 Dose: 0 mg/hr, 0 mls/hr Documented by: Ceftriaxone Sodium (Rocephin/Ns 1 Gm/50 Ml) 1 gm in 50 mls @ 100 mls/hr IV Q24HR [facility] Dextrose/Sodium Chloride (D5/0.45ns) 1,000 mls @ 75 mls/hr IV DIRECT [facility] Last Admin: 11/06/18 09:50 Dose: 75 mls/hr Documented by: Insulin Human Lispro (Humalog) 0 unit SUB-Q Q6HR [facility]; Protocol Lorazepam (Ativan) 2 mg IV Q10MIN PRN PRN Reason: Agitation Last Admin: 11/05/18 17:51 Dose: 2 mg Documented by: Multi-Ingred Cream/Lotion/Oil/Oint (Artificial Tears Ophth Oint) 1 applic OU Q4HR PRN PRN Reason: Dry Eye(s) Potassium Chloride (Potassium Chloride) 40 meq FEEDTUBE Q4H [facility] Stop: 11/06/18 13:01 Last Admin: 11/06/18 09:51 Dose: 40 meq Documented by: Sodium Chloride (Sodium Chloride Flush Syringe 10 Ml) 10 ml IV BID [facility] Last Admin: 11/06/18 10:10 Dose: 10 ml Documented by: Sodium Chloride (Sodium Chloride Flush Syringe 10 Ml) 10 ml IV PRN PRN PRN Reason: LINE FLUSH Physical Examination - Physical Exam Narrative exam: Physical Exam: Constitutional: sedated, intubated Head, Ears, Nose: Normocephalic, atraumatic. External ears, nose normal Eyes: Conjunctivae/corneas clear. No icterus. No ptosis. Neck: Supple, no meningeal signs Oral: intubated Cardiovascular: S1, S2 normal. Respiratory: Good air entry, clear to auscultation bilaterally GI: Soft, non-tender; bowel sounds normal. No peritoneal signs Musculoskeletal: No pedal edema, no cyanosis. Skin: No rash or abscess Hem/Lymphatic: No palpable cervical or supraclavicular nodes. No lymphangitis Psych: no agitation Neurological: sedated, intubated, on vent - Constitutional Vitals: Vital Signs Temp Pulse Resp BP Pulse Ox 98.0 F 71 13 129/42 100 11/06/18 08:00 11/06/18 11:15 11/06/18 11:15 11/06/18 11:15 11/06/18 11:15 Temperature -Last 24 Hours Temperature 98.0 F Temperature 97.7 F Temperature 102.2 F Results - Labs CBC & Chem 7: 11/06/18 04:09 11/06/18 04:09 Labs: Abnormal lab results 11/05/18 11/05/18 11/05/18 Range/Units 16:31 16:31 16:31 WBC (4.5-11.0) K/mm3 Plt Count 139 L (140-440) K/mm3 [place] % (Auto) (0.0-7.3) % Lymph # 0.7 L (1.2-5.4) K/mm3 Seg Neutrophils % 78.8 H (40.0-70.0) % POC ABG pH (7.35-7.45) POC ABG pCO2 (35-45) POC ABG pO2 (80-105) Sodium 148 H (137-145) mmol/L Potassium 3.2 L (3.6-5.0) mmol/L Chloride 110.6 H (98-107) mmol/L Carbon Dioxide 17 L (22-30) mmol/L BUN 18 H (7-17) mg/dL Creatinine 1.9 H (0.7-1.2) mg/dL Glucose 205 H (65-100) mg/dL POC Glucose (70-105) Lactic Acid 8.20 H* (0.7-2.0) mmol/L Calcium 10.9 H (8.4-10.2) mg/dL Total Creatine Kinase (30-135) units/L Total Protein (6.3-8.2) g/dL Albumin 3.6 L (3.9-5) g/dL Urine WBC (Auto) (0.0-6.0) /HPF Urine Creatinine (0.1-20.0) mg/dL Salicylates (2.8-20.0) mg/dL Acetaminophen (10.0-30.0) ug/mL 11/05/18 11/05/18 11/05/18 Range/Units 16:31 16:31 16:31 WBC (4.5-11.0) K/mm3 Plt Count (140-440) K/mm3 [place] % (Auto) (0.0-7.3) % Lymph # (1.2-5.4) K/mm3 Seg Neutrophils % (40.0-70.0) % POC ABG pH (7.35-7.45) POC ABG pCO2 (35-45) POC ABG pO2 (80-105) Sodium (137-145) mmol/L Potassium (3.6-5.0) mmol/L Chloride (98-107) mmol/L Carbon Dioxide (22-30) mmol/L BUN (7-17) mg/dL Creatinine (0.7-1.2) mg/dL Glucose (65-100) mg/dL POC Glucose (70-105) Lactic Acid (0.7-2.0) mmol/L Calcium (8.4-10.2) mg/dL Total Creatine Kinase < 7 L (30-135) units/L Total Protein (6.3-8.2) g/dL Albumin (3.9-5) g/dL Urine WBC (Auto) (0.0-6.0) /HPF Urine Creatinine (0.1-20.0) mg/dL Salicylates < 0.3 L (2.8-20.0) mg/dL Acetaminophen < 5.0 L (10.0-30.0) ug/mL 11/05/18 11/05/18 11/05/18 Range/Units 17:29 17:42 20:47 WBC (4.5-11.0) K/mm3 Plt Count (140-440) K/mm3 [place] % (Auto) (0.0-7.3) % Lymph # (1.2-5.4) K/mm3 Seg Neutrophils % (40.0-70.0) % POC ABG pH (7.35-7.45) POC ABG pCO2 33.4 L (35-45) POC ABG pO2 136 H (80-105) Sodium (137-145) mmol/L Potassium (3.6-5.0) mmol/L Chloride (98-107) mmol/L Carbon Dioxide (22-30) mmol/L BUN (7-17) mg/dL Creatinine (0.7-1.2) mg/dL Glucose (65-100) mg/dL POC Glucose (70-105) Lactic Acid 3.30 H* (0.7-2.0) mmol/L Calcium (8.4-10.2) mg/dL Total Creatine Kinase (30-135) units/L Total Protein (6.3-8.2) g/dL Albumin (3.9-5) g/dL Urine WBC (Auto) 19.0 H (0.0-6.0) /HPF Urine Creatinine (0.1-20.0) mg/dL Salicylates (2.8-20.0) mg/dL Acetaminophen (10.0-30.0) ug/mL 11/05/18 11/05/18 11/06/18 Range/Units 20:47 22:42 04:09 WBC 4.4 L (4.5-11.0) K/mm3 Plt Count 102 L (140-440) K/mm3 [place] % (Auto) 13.2 H (0.0-7.3) % Lymph # 1.0 L (1.2-5.4) K/mm3 Seg Neutrophils % (40.0-70.0) % POC ABG pH (7.35-7.45) POC ABG pCO2 (35-45) POC ABG pO2 (80-105) Sodium (137-145) mmol/L Potassium (3.6-5.0) mmol/L Chloride (98-107) mmol/L Carbon Dioxide (22-30) mmol/L BUN (7-17) mg/dL Creatinine (0.7-1.2) mg/dL Glucose (65-100) mg/dL POC Glucose 121 H (70-105) Lactic Acid (0.7-2.0) mmol/L Calcium (8.4-10.2) mg/dL Total Creatine Kinase (30-135) units/L Total Protein (6.3-8.2) g/dL Albumin (3.9-5) g/dL Urine WBC (Auto) (0.0-6.0) /HPF Urine Creatinine 166.9 H (0.1-20.0) mg/dL Salicylates (2.8-20.0) mg/dL Acetaminophen (10.0-30.0) ug/mL 11/06/18 11/06/18 11/06/18 Range/Units 04:09 05:05 07:31 WBC (4.5-11.0) K/mm3 Plt Count (140-440) K/mm3 [place] % (Auto) (0.0-7.3) % Lymph # (1.2-5.4) K/mm3 Seg Neutrophils % (40.0-70.0) % POC ABG pH 7.509 H (7.35-7.45) POC ABG pCO2 (35-45) POC ABG pO2 115 H (80-105) Sodium 150 H (137-145) mmol/L Potassium 2.7 L* (3.6-5.0) mmol/L Chloride 118.2 H (98-107) mmol/L Carbon Dioxide 21 L (22-30) mmol/L BUN 21 H (7-17) mg/dL Creatinine 1.6 H (0.7-1.2) mg/dL Glucose 125 H (65-100) mg/dL POC Glucose (70-105) Lactic Acid 2.50 H* (0.7-2.0) mmol/L Calcium (8.4-10.2) mg/dL Total Creatine Kinase (30-135) units/L Total Protein 5.7 L (6.3-8.2) g/dL Albumin 3.1 L (3.9-5) g/dL Urine WBC (Auto) (0.0-6.0) /HPF Urine Creatinine (0.1-20.0) mg/dL Salicylates (2.8-20.0) mg/dL Acetaminophen (10.0-30.0) ug/mL 11/06/18 Range/Units 12:04 WBC (4.5-11.0) K/mm3 Plt Count (140-440) K/mm3 [place] % (Auto) (0.0-7.3) % Lymph # (1.2-5.4) K/mm3 Seg Neutrophils % (40.0-70.0) % POC ABG pH (7.35-7.45) POC ABG pCO2 (35-45) POC ABG pO2 (80-105) Sodium (137-145) mmol/L Potassium (3.6-5.0) mmol/L Chloride (98-107) mmol/L Carbon Dioxide (22-30) mmol/L BUN (7-17) mg/dL Creatinine (0.7-1.2) mg/dL Glucose (65-100) mg/dL POC Glucose 122 H (70-105) Lactic Acid (0.7-2.0) mmol/L Calcium (8.4-10.2) mg/dL Total Creatine Kinase (30-135) units/L Total Protein (6.3-8.2) g/dL Albumin (3.9-5) g/dL Urine WBC (Auto) (0.0-6.0) /HPF Urine Creatinine (0.1-20.0) mg/dL Salicylates (2.8-20.0) mg/dL Acetaminophen (10.0-30.0) ug/mL - Imaging and Cardiology Chest x-ray: report reviewed, image reviewed (Chest x-ray showed no evidence of pneumonia.) CT scan - abdomen: report reviewed, image reviewed (CT abdomen and pelvis without contrast showed no acute findings) CT Scan - head: report reviewed, image reviewed (CT head shows findings of maxillary sinusitis. No acute intracranial findings) Assessment and Plan Cultures: 11/05/2018 blood culture: In progress A/P: 82-year-old female with hypertension, heart disease, hyperlipidemia, neuropathy who has been living with her and was his primary caregiver and apparently had not been feeling well for the last 1 week, now admitted with AMS: 1) SIRS versus sepsis: Fever on admission, lactic acidosis. No leukocytosis. Chest x-ray without evidence of pneumonia. UA with minimal pyuria, doubt UTI. Fever could be reactive secondary to seizures. Empiric cefepime and vancomycin for now. Follow-up blood cultures. 2) Lactic acidosis: Lactate improving. CT abdomen and pelvis without contrast showed no acute endings. 3) Acute encephalopathy: Neurology following. Question related to seizures. 4) BRAD: Renally dose antibiotics. Recs: Empiric IV cefepime and vancomycin, renally adjusted Follow-up blood cultures Follow-up urine culture Tia Farah MD, FACP [facility] C: [phone] O: [phone] F: [phone]
[2018-11-06] MEDS ORDERED: VANCOMYCIN PHARMACY TO DOSE IV SCH (13:00)
--- NOTE | 2018-11-06 14:24 | Consultation ---
History of Present Illness - Reason for Consult Consult date: 11/06/18 acute renal failure - History of Present Illness This is a 82 year old female who is admitted for unresponsiveness. Patient was found unresponsive at her home yesterday and so EMS was called who transported patient to this E.R. On evaluation patient was found to be Septic and in Acute Hypoxic Respiratory Failure requiring intubation. Serum creatinine on admission was 1.9. Baseline serum creatinine unknown. We are being consulted for management of this patient's Acute Renal Failure. Past History Past Medical History: No medical history, other (UTO) Past Surgical History: No surgical history, Other (UTO) Social history: . denies: smoking, alcohol abuse, prescription drug abuse Family history: no significant family history (UTO) Medications and Allergies Allergies Allergy/AdvReac Type Severity Reaction Status Date / Time No Known Allergies Allergy Verified 11/06/18 05:50 Active Meds: Active Medications Albuterol (Proventil) 2.5 mg IH Q3HRT PRN PRN Reason: Shortness Of Breath Dextrose (D50w (25gm) Syringe) 50 ml IV PRN PRN PRN Reason: Hypoglycemia Famotidine (Pepcid) 20 mg IV DAILY [facility] Last Admin: 11/06/18 09:51 Dose: 20 mg Documented by: Fentanyl (Sublimaze) 50 mcg IV Q10MIN PRN PRN Reason: ANALGESIA Heparin Sodium (Porcine) (Heparin) 5,000 unit SUB-Q Q12HR [facility] Last Admin: 11/06/18 09:51 Dose: 5,000 unit Documented by: Hydralazine HCl (Apresoline) 10 mg IV Q6HR PRN PRN Reason: Hypertension Last Admin: 11/05/18 22:51 Dose: 10 mg Documented by: Hydrophilic Ointment (Vaseline Lip Therapy) 1 applic TP Q2HR PRN PRN Reason: Dry Lips Fentanyl Citrate (Fentanyl Drip Premix) 2,000 mcg in 100 mls @ 3.485 mls/hr IV TITR [facility]; Protocol Last Titration: 11/06/18 09:45 Dose: 0 mcg/kg/hr, 0 mls/hr Documented by: Lorazepam 100 mg/ Sodium Chloride/ Miscellaneous Information 100 mls @ 1 mls/hr IV TITR [facility]; Protocol Last Titration: 11/06/18 08:22 Dose: 0 mg/hr, 0 mls/hr Documented by: Dextrose/Sodium Chloride (D5/0.45ns) 1,000 mls @ 75 mls/hr IV DIRECT [facility] Last Admin: 11/06/18 09:50 Dose: 75 mls/hr Documented by: Cefepime HCl (Maxipime/Ns 1 Gm/100 Ml) 1 gm in 100 mls @ 200 mls/hr IV Q12HR [facility]; Protocol Vancomycin HCl (Vancomycin/Ns 1 Gm/250 Ml) 1 gm in 250 mls @ 166.667 mls/hr IV Q24H [facility] Insulin Human Lispro (Humalog) 0 unit SUB-Q Q6HR [facility]; Protocol Last Admin: 11/06/18 12:30 Dose: Not Given Documented by: Lorazepam (Ativan) 2 mg IV Q10MIN PRN PRN Reason: Agitation Last Admin: 11/05/18 17:51 Dose: 2 mg Documented by: Multi-Ingred Cream/Lotion/Oil/Oint (Artificial Tears Ophth Oint) 1 applic OU Q4HR PRN PRN Reason: Dry Eye(s) Sodium Chloride (Sodium Chloride Flush Syringe 10 Ml) 10 ml IV BID [facility] Last Admin: 11/06/18 10:10 Dose: 10 ml Documented by: Sodium Chloride (Sodium Chloride Flush Syringe 10 Ml) 10 ml IV PRN PRN PRN Reason: LINE FLUSH Review of Systems ROS unobtainable: due to endotracheal tube, due to mental status Exam - Vital Signs Vital signs: Vital Signs Temp Pulse Resp BP Pulse Ox 102.2 F H 128 H 25 H 102/68 99 11/05/18 16:03 11/05/18 16:03 11/05/18 16:03 11/05/18 16:03 11/05/18 16:03 - General Appearance General appearance: intubated EENT: ATNC Neck: Present: neck supple Respiratory: Decreased Breath Sounds Heart: regular, S1S2 Gastrointestinal: Present: normoactive bowel sounds Integumentary: no rash, warm and dry Neurologic: other (sedated and intubated) Musculoskeletal: Present: other (No edema) Results - Lab Results 11/06/18 04:09 11/06/18 04:09 Most recent lab results Calcium 10.0 mg/dL (8.4-10.2) 11/06/18 04:09 Magnesium 2.20 mg/dL (1.7-2.3) 11/05/18 16:31 166.9 mg/dL (0.1-20.0) H 11/05/18 20:47 43 mmol/L 11/05/18 20:47 Assessment and Plan Acute Renal Failure likely secondary to ischemic ATN r/o obstruction: Hypokalemia: Hypernatremia: -Renal labs reviewed. Serum creatinine trend down to 1.6 today from 1.9 yesterday -Baseline serum creatinine unknown -On IV hydration with D51/2NS@ 75 ml/hr -Hypokalemia- repleted this morning. Recheck levels at 1800 -Hypernatremia-On free water flush 250 ml every 4 hours -Obtain urine lytes and eosinophils -Obtain renal ultrasound -Monitor I/O's -Avoid nephrotoxic agents -Obtain daily weights -Monitor renal function closely SIRS versus sepsis: -On empiric cefepime and vancomycin -Blood cultures-pending -ID onboard Acute encephalopathy: Possible Seizures -Neurology consulted Acute Hypoxic Respiratory Failure: -Intubated as per Pulmonary
[2018-11-06] MEDS: MAXIPIME/NS 1 GM/100 ML 1 GM/100 ML BAG IV SCH ×2 (14:49→21:08)
--- NOTE | 2018-11-06 15:34 | Progress Note ---
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 that could be etiology of the seizure I am in the room as EEG is being done and I plan to review spoke to son malaika been on neurontintherapy previously plan f.u Objective - Vital Sign Vital Signs - 12hr 11/06/18 11/06/18 11/06/18 04:50 05:09 05:11 Temperature Pulse Rate 63 62 Pulse Rate [ 60 Apical] Respiratory 18 14 Rate Blood Pressure 112/49 114/50 O2 Sat by Pulse 100 99 100 Oximetry 11/06/18 11/06/18 11/06/18 05:21 05:30 05:41 Temperature Pulse Rate 61 61 61 Pulse Rate [ Apical] Respiratory 14 14 14 Rate Blood Pressure 107/50 107/50 O2 Sat by Pulse 100 100 100 Oximetry 11/06/18 11/06/18 11/06/18 05:51 06:00 06:11 Temperature Pulse Rate 61 61 60 Pulse Rate [ Apical] Respiratory 14 14 14 Rate Blood Pressure 107/47 109/47 109/47 O2 Sat by Pulse 100 100 100 Oximetry 11/06/18 11/06/18 11/06/18 06:21 06:30 06:40 Temperature Pulse Rate 60 61 60 Pulse Rate [ Apical] Respiratory 14 14 14 Rate Blood Pressure 109/48 125/56 125/56 O2 Sat by Pulse 100 100 100 Oximetry 11/06/18 11/06/18 11/06/18 06:50 07:00 07:10 Temperature Pulse Rate 60 60 60 Pulse Rate [ Apical] Respiratory 14 14 14 Rate Blood Pressure 112/49 112/50 112/50 O2 Sat by Pulse 100 100 100 Oximetry 11/06/18 11/06/18 11/06/18 07:20 07:30 07:40 Temperature Pulse Rate 60 60 60 Pulse Rate [ Apical] Respiratory 14 14 14 Rate Blood Pressure 111/50 114/50 114/50 O2 Sat by Pulse 100 100 100 Oximetry 11/06/18 11/06/18 11/06/18 07:50 08:00 08:10 Temperature 98.0 F Pulse Rate 60 60 60 Pulse Rate [ Apical] Respiratory 14 14 14 Rate Blood Pressure 118/52 116/54 116/54 O2 Sat by Pulse 100 100 100 Oximetry 11/06/18 11/06/18 11/06/18 08:20 08:30 08:45 Temperature Pulse Rate 59 L 60 60 Pulse Rate [ Apical] Respiratory 14 14 14 Rate Blood Pressure 115/52 115/51 118/54 O2 Sat by Pulse 99 99 99 Oximetry 11/06/18 11/06/18 11/06/18 08:55 09:00 09:15 Temperature Pulse Rate 69 61 60 Pulse Rate [ Apical] Respiratory 14 14 Rate Blood Pressure 119/55 128/53 O2 Sat by Pulse 100 100 100 Oximetry 11/06/18 11/06/18 11/06/18 09:30 09:45 10:00 Temperature Pulse Rate 61 60 61 Pulse Rate [ Apical] Respiratory 14 14 14 Rate Blood Pressure 123/57 126/57 123/55 O2 Sat by Pulse 100 100 100 Oximetry 11/06/18 11/06/18 11/06/18 10:15 10:30 10:45 Temperature Pulse Rate 63 66 69 Pulse Rate [ Apical] Respiratory 14 15 17 Rate Blood Pressure 137/59 137/59 123/61 O2 Sat by Pulse 100 100 100 Oximetry 11/06/18 11/06/18 11/06/18 11:00 11:15 11:30 Temperature Pulse Rate 68 71 72 Pulse Rate [ Apical] Respiratory 14 13 12 Rate Blood Pressure 123/61 129/42 129/42 O2 Sat by Pulse 100 100 100 Oximetry 11/06/18 11/06/18 11/06/18 12:00 12:30 12:31 Temperature 97.9 F Pulse Rate 77 75 Pulse Rate [ Apical] Respiratory 16 14 Rate Blood Pressure 130/48 124/52 O2 Sat by Pulse 100 100 Oximetry 11/06/18 11/06/18 11/06/18 13:00 13:30 14:00 Temperature Pulse Rate 73 70 72 Pulse Rate [ Apical] Respiratory 14 13 14 Rate Blood Pressure 131/48 110/49 127/51 O2 Sat by Pulse 100 100 99 Oximetry 11/06/18 14:38 Temperature Pulse Rate 72 Pulse Rate [ Apical] Respiratory 16 Rate Blood Pressure 137/50 O2 Sat by Pulse 100 Oximetry - Laboratory Findings CBC and BMP: 11/06/18 04:09 11/06/18 04:09 Abnormal Lab Findings: Abnormal Labs 11/05/18 11/05/18 11/05/18 16:31 16:31 16:31 WBC Plt Count 139 L [place] % (Auto) Lymph # 0.7 L Seg Neutrophils % 78.8 H POC ABG pH POC ABG pCO2 POC ABG pO2 Sodium 148 H Potassium 3.2 L Chloride 110.6 H Carbon Dioxide 17 L BUN 18 H Creatinine 1.9 H Glucose 205 H POC Glucose Lactic Acid 8.20 H* Calcium 10.9 H Total Creatine Kinase Total Protein Albumin 3.6 L Urine WBC (Auto) Urine Creatinine Salicylates Acetaminophen 11/05/18 11/05/18 11/05/18 16:31 16:31 16:31 WBC Plt Count [place] % (Auto) Lymph # Seg Neutrophils % POC ABG pH POC ABG pCO2 POC ABG pO2 Sodium Potassium Chloride Carbon Dioxide BUN Creatinine Glucose POC Glucose Lactic Acid Calcium Total Creatine Kinase < 7 L Total Protein Albumin Urine WBC (Auto) Urine Creatinine Salicylates < 0.3 L Acetaminophen < 5.0 L 11/05/18 11/05/18 11/05/18 17:29 17:42 20:47 WBC Plt Count [place] % (Auto) Lymph # Seg Neutrophils % POC ABG pH POC ABG pCO2 33.4 L POC ABG pO2 136 H Sodium Potassium Chloride Carbon Dioxide BUN Creatinine Glucose POC Glucose Lactic Acid 3.30 H* Calcium Total Creatine Kinase Total Protein Albumin Urine WBC (Auto) 19.0 H Urine Creatinine Salicylates Acetaminophen 11/05/18 11/05/18 11/06/18 20:47 22:42 04:09 WBC 4.4 L Plt Count 102 L [place] % (Auto) 13.2 H Lymph # 1.0 L Seg Neutrophils % POC ABG pH POC ABG pCO2 POC ABG pO2 Sodium Potassium Chloride Carbon Dioxide BUN Creatinine Glucose POC Glucose 121 H Lactic Acid Calcium Total Creatine Kinase Total Protein Albumin Urine WBC (Auto) Urine Creatinine 166.9 H Salicylates Acetaminophen 11/06/18 11/06/18 11/06/18 04:09 05:05 07:31 WBC Plt Count [place] % (Auto) Lymph # Seg Neutrophils % POC ABG pH 7.509 H POC ABG pCO2 < 30 L POC ABG pO2 115 H Sodium 150 H Potassium 2.7 L* Chloride 118.2 H Carbon Dioxide 21 L BUN 21 H Creatinine 1.6 H Glucose 125 H POC Glucose Lactic Acid 2.50 H* Calcium Total Creatine Kinase Total Protein 5.7 L Albumin 3.1 L Urine WBC (Auto) Urine Creatinine Salicylates Acetaminophen 11/06/18 12:04 WBC Plt Count [place] % (Auto) Lymph # Seg Neutrophils % POC ABG pH POC ABG pCO2 POC ABG pO2 Sodium Potassium Chloride Carbon Dioxide BUN Creatinine Glucose POC Glucose 122 H Lactic Acid Calcium Total Creatine Kinase Total Protein Albumin Urine WBC (Auto) Urine Creatinine Salicylates Acetaminophen
--- NOTE | 2018-11-06 16:31 | Progress Note ---
Assessment and Plan Assessment and plan: 82 YO Female presented to then ED after the patient was found down and unresponsive and reports seizure like activity. On EMS arrival patient was noted to have a GCS of 3 and was placed on oxygen mask and intubated in the ED on arrival. Initial Temp was noted as 102.2 In the ED patient was intubated due to AMS and Acute Hypoxemic Respiratory Failure, and is unable to protect her airway, Teleneurology consulted in ED. Pt deemed not a candidate for TPA. No prior admission for review. 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 Replace electrolytes Free water per Nephrology Continue abx as started Monitor Culture The patient son informs me the patient has been very lethargic for a few weeks now and has been mostly in bed. She is the primary care fiver for her who is battling metastatic disease Spoke to family at bedside The high probability of a clinically significant, sudden or life threatening deterioration of the [Neuro, cardiac, respiratory, renal] system(s) required my full and direct attention, intervention and personal management. The aggregate critical care time was [35] minutes. This time is in addition to time spent performing reported procedures but includes the following: [x] Data Review and interpretation [x] Patient assessment and monitoring of vital signs [x] Documentation [x] Medication orders and management History Interval history: Patient seen and examined, remains on full ventilatory support Hospitalist Physical - Physical exam Narrative exam: VITAL SIGNS: Reviewed. GENERAL: intubated and on mechanical ventilation, Vital signs as documented. HEAD: No signs of head trauma. EYES: Pupils are equal. EARS: unable to assess MOUTH: ETT oinplace NECK: No adenopathy, no JVD. CHEST: Chest with clear breath sounds bilaterally. No wheezes, rales, or rhonchi. CARDIAC: Regular rate and rhythm. S1 and S2, without murmurs, gallops, or rubs. VASCULAR: No Edema. Peripheral pulses normal and equal in all extremities. ABDOMEN: Soft, non tender and non distended. No rebound or guarding, and no masses palpated. Bowel Sounds normal. MUSCULOSKELETAL: unable to examine NEUROLOGIC EXAM: Intubated and sedated PSYCHIATRIC: Mood normal. SKIN: No rash or lesions. - Constitutional Vitals: Temp Pulse Resp BP Pulse Ox 98.1 F 72 16 137/50 100 11/06/18 16:00 11/06/18 14:38 11/06/18 14:38 11/06/18 14:38 11/06/18 14:38 General appearance: Present: severe distress Results - Labs CBC & Chem 7: 11/06/18 04:09 11/06/18 04:09 Labs: Laboratory Last Values WBC 4.4 K/mm3 (4.5-11.0) L 11/06/18 04:09 RBC 3.83 M/mm3 (3.65-5.03) 11/06/18 04:09 Hgb 11.4 gm/dl (10.1-14.3) 11/06/18 04:09 Hct 35.1 % (30.3-42.9) 11/06/18 04:09 MCV 92 fl (79-97) 11/06/18 04:09 MCH 30 pg (28-32) 11/06/18 04:09 MCHC 32 % (30-34) 11/06/18 04:09 RDW 14.5 % (13.2-15.2) 11/06/18 04:09 Plt Count 102 K/mm3 (140-440) L 11/06/18 04:09 Lymph % (Auto) 23.8 % (13.4-35.0) 11/06/18 04:09 [place] % (Auto) 13.2 % (0.0-7.3) H 11/06/18 04:09 Eos % (Auto) 0.0 % (0.0-4.3) 11/06/18 04:09 Baso % (Auto) 0.3 % (0.0-1.8) 11/06/18 04:09 Lymph # 1.0 K/mm3 (1.2-5.4) L 11/06/18 04:09 [place] # 0.6 K/mm3 (0.0-0.8) 11/06/18 04:09 Eos # 0.0 K/mm3 (0.0-0.4) 11/06/18 04:09 Baso # 0.0 K/mm3 (0.0-0.1) 11/06/18 04:09 Seg Neutrophils % 62.7 % (40.0-70.0) 11/06/18 04:09 Seg Neutrophils # 2.7 K/mm3 (1.8-7.7) 11/06/18 04:09 POC ABG pH 7.509 (7.35-7.45) H 11/06/18 05:05 POC ABG pCO2 < 30 (35-45) L 11/06/18 05:05 POC ABG pO2 115 (80-105) H 11/06/18 05:05 POC ABG HCO3 19.6 (22-26 mml/L) 11/06/18 05:05 POC ABG Total CO2 20 (23-27mmol/L) 11/06/18 05:05 POC ABG O2 Sat 99 11/06/18 05:05 POC ABG Base Excess -3 ((-2) - (+3)mmol/L) 11/06/18 05:05 45 % 11/06/18 05:05 Sodium 150 mmol/L (137-145) H 11/06/18 04:09 Potassium 2.7 mmol/L (3.6-5.0) L* 11/06/18 04:09 Chloride 118.2 mmol/L (98-107) H 11/06/18 04:09 Carbon Dioxide 21 mmol/L (22-30) L 11/06/18 04:09 14 mmol/L 11/06/18 04:09 BUN 21 mg/dL (7-17) H 11/06/18 04:09 1.6 mg/dL (0.7-1.2) H 11/06/18 04:09 Estimated GFR 31 ml/min 11/06/18 04:09 13 % 11/06/18 04:09 Glucose 125 mg/dL (65-100) H 11/06/18 04:09 POC Glucose 122 (70-105) H 11/06/18 12:04 Lactic Acid 2.50 mmol/L (0.7-2.0) H* 11/06/18 07:31 Calcium 10.0 mg/dL (8.4-10.2) 11/06/18 04:09 Magnesium 2.20 mg/dL (1.7-2.3) 11/05/18 16:31 0.50 mg/dL (0.1-1.2) 11/06/18 04:09 AST 18 units/L (5-40) 11/06/18 04:09 ALT 14 units/L (7-56) 11/06/18 04:09 44 units/L (35-129) 11/06/18 04:09 44.0 umol/L (25-60) 11/05/18 17:28 < 7 units/L (30-135) L 11/05/18 16:31 0.019 ng/mL (0.00-0.029) 11/05/18 16:31 5.7 g/dL (6.3-8.2) L 11/06/18 04:09 3.1 g/dL (3.9-5) L 11/06/18 04:09 1.2 % 11/06/18 04:09 TSH 0.972 mlU/mL (0.270-4.200) 11/05/18 16:31 Yellow (Yellow) 11/05/18 20:47 Slightly-cloudy (Clear) 11/05/18 20:47 5.0 (5.0-7.0) 11/05/18 20:47 Ur Specific [place] 1.016 (1.003-1.030) 11/05/18 20:47 100 mg/dl mg/dL (Negative) 11/05/18 20:47 50 mg/dL (Negative) 11/05/18 20:47 Neg mg/dL (Negative) 11/05/18 20:47 Sm (Negative) 11/05/18 20:47 Pos (Negative) 11/05/18 20:47 Neg (Negative) 11/05/18 20:47 < 2.0 mg/dL (<2.0) 11/05/18 20:47 Ur Leukocyte Esterase Tr (Negative) 11/05/18 20:47 19.0 /HPF (0.0-6.0) H 11/05/18 20:47 4.0 /HPF (0.0-6.0) 11/05/18 20:47 U Epithel Cells (Auto) 1.0 /HPF (0-13.0) 11/05/18 20:47 Few /HPF 11/05/18 20:47 166.9 mg/dL (0.1-20.0) H 11/05/18 20:47 43 mmol/L 11/05/18 20:47 Salicylates < 0.3 mg/dL (2.8-20.0) L 11/05/18 16:31 Acetaminophen < 5.0 ug/mL (10.0-30.0) L 11/05/18 16:31 Plasma/Serum Alcohol < 0.01 % (0-0.07) 11/05/18 16:31 Active Medications - Current Medications Current Medications: Generic Name Dose Route Start Last Admin Trade Name Freq PRN Reason Stop Dose Admin Albuterol 2.5 mg 11/05/18 17:52 Proventil IH Q3HRT PRN Shortness Of Breath Dextrose 50 ml 11/05/18 17:59 D50w (25gm) Syringe IV PRN PRN Hypoglycemia Famotidine 20 mg 11/06/18 10:00 11/06/18 09:51 Pepcid IV 20 mg DAILY NIKKO Administration Fentanyl 50 mcg 11/05/18 16:21 Sublimaze IV Q10MIN PRN ANALGESIA Heparin Sodium (Porcine) 5,000 unit 11/06/18 10:00 11/06/18 09:51 Heparin SUB-Q 5,000 unit Q12HR NIKKO Administration Hydralazine HCl 10 mg 11/05/18 21:30 11/05/18 22:51 Apresoline IV 10 mg Q6HR PRN Administration Hypertension Hydrophilic Ointment 1 applic 11/05/18 16:21 Vaseline Lip Therapy TP Q2HR PRN Dry Lips Fentanyl Citrate 2,000 mcg in 100 mls @ 3.485 mls/hr 11/05/18 17:00 11/06/18 09:45 Fentanyl Drip Premix IV 0 mcg/kg/hr TITR NIKKO 0 mls/hr Titration Protocol 1 MCG/KG/HR Lorazepam 100 mg/ Sodium 100 mls @ 1 mls/hr 11/05/18 17:00 11/06/18 08:22 Chloride/ Miscellaneous IV 0 mg/hr Information TITR NIKKO 0 mls/hr Titration Protocol 1 MG/HR Dextrose/Sodium Chloride 1,000 mls @ 75 mls/hr 11/06/18 09:00 11/06/18 09:50 D5/0.45ns IV 75 mls/hr DIRECT NIKKO Administration Cefepime HCl 1 gm in 100 mls @ 200 mls/hr 11/06/18 14:00 11/06/18 14:49 Maxipime/Ns 1 Gm/100 Ml IV 200 mls/hr Q12HR NIKKO Administration Protocol Vancomycin HCl 1 gm in 250 mls @ 166.667 mls/hr 11/06/18 22:00 Vancomycin/Ns 1 Gm/250 Ml IV Q24H NIKKO Insulin Human Lispro 0 unit 11/06/18 12:00 11/06/18 12:30 Humalog SUB-Q Not Given Q6HR NIKKO Protocol Lorazepam 2 mg 11/05/18 16:21 11/05/18 17:51 Ativan IV 2 mg Q10MIN PRN Administration Agitation Multi-Ingred Cream/Lotion/Oil/Oint 1 applic 11/05/18 16:21 Artificial Tears Ophth Oint OU Q4HR PRN Dry Eye(s) Sodium Chloride 10 ml 11/05/18 22:00 11/06/18 10:10 Sodium Chloride Flush Syringe 10 Ml IV 10 ml BID NIKKO Administration Sodium Chloride 10 ml 11/05/18 17:52 Sodium Chloride Flush Syringe 10 Ml IV PRN PRN LINE FLUSH Nutrition/Malnutrition Assess - Dietary Evaluation Nutrition/Malnutrition Findings: Nutrition Notes Start: 11/06/18 16:18 Freq: Status: Active Protocol: Document 11/06/18 16:18 RM (Rec: 11/06/18 16:23 RM [id number]) Nutrition Notes Need for Assessment generated from: MD Order Initial or Follow up Assessment Current Diagnosis Acute Kidney Injury, Respiratory Failure Other Pertinent Diagnosis Encephalopathy Current Diet NPO Labs/Tests Na 150 K 2.7 Pertinent Medications Reviewed Height 5 ft 5 in Weight 69.7 kg Usual Body Weight 75 kg [place] Body Weight (kg) 56.81 BMI 25.5 Weight change and time frame 7% wt loss Subjective/Other Information Consulted for evaluate nutritional intake. Screened for malnutrition. Pt and pt son in room at time of visit. Pt on vent. Pt son stated that [employer] pt had not eaten X 2 days. Stated UBW is 165 lbs but fluctuates. Noted temporal wasting. Burn Absent Trauma Absent Nutrition Diagnosis Inadequate oral intake Etiology on vent As Evidenced by Signs and Symptoms NPO status Is patient on ventilator? Yes Is Patient Ambulatory and/or Out of Bed No [facility] 1390.584 Calculation Used for Recommendations [facility] Additional Notes Protein Needs: (1.2-2g/kg) Fluid Needs: 1 ml/kcal Nutrition Intervention Change Diet Order: TF consult
[2018-11-06 17:13] LABS: Creatinine,Urine 155.8 mg/dL (0.1-20.0)
--- NOTE | 2018-11-06 19:49 | Ultrasound Report ---
Renal ultrasound. 11/06/2018. HISTORY: Renal failure. FINDINGS: Right kidney measures 9.3 cm. Left kidney measures 10.1 cm. A left renal cyst measures 1.3 cm. The bladder is decompressed by [place] catheter. IMPRESSION: 1. Negative for obstruction or mass. 2. Small left renal cyst. Signer Name: Quinton Castro MD Signed: 11/06/2018 7:44 PM Workstation Name: [id number]
[2018-11-06] MEDS: VANCOMYCIN/NS 1 GM/250 ML 1 GM/250 ML BAG IV SCH (21:08)
[2018-11-07] MEDS: HumaLOG SUB-Q SCH ×4 (00:11→21:09)
[2018-11-07] MEDS: fentaNYL DRIP Premix 2,000 MCG/100 ML BAG IV SCH (01:48)
[2018-11-07] MEDS: APRESOLINE IV PRN ×2 (01:50→14:20)
[2018-11-07] MEDS: D5/0.45NS 1,000 ML IV SCH (01:50)
--- NOTE | 2018-11-07 03:41 | XRay Report ---
CHEST 1 VIEW INDICATION: follow up respiratory failure. COMPARISON: One day prior. FINDINGS: Support devices: Feeding tube has been placed. Tip is in the stomach. Heart: Stable. Lungs/Pleura: Retrocardiac left lung opacity has worsened, this may be atelectatic but is nonspecific . Lungs are otherwise clear. IMPRESSION: 1. Worsening retrocardiac left lung opacity. Signer Name: Corey Espino MD Signed: 11/07/2018 3:36 AM Workstation Name: [id number]
--- NOTE | 2018-11-07 09:19 | Progress Note ---
Assessment and Plan Assessment and plan: 82 YO Female presented to then ED after the patient was found down and unresponsive and reports seizure like activity. On EMS arrival patient was noted to have a GCS of 3 and was placed on oxygen mask and intubated in the ED on arrival. Initial Temp was noted as 102.2 In the ED patient was intubated due to AMS and Acute Hypoxemic Respiratory Failure, and is unable to protect her airway, Teleneurology consulted in ED. Pt deemed not a candidate for TPA. No prior admission for review. 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 She is the primary care fiver for her who is battling metastatic disease Spoke to family at bedside The high probability of a clinically significant, sudden or life threatening deterioration of the [Neuro, cardiac, respiratory, renal] system(s) required my full and direct attention, intervention and personal management. The aggregate critical care time was [35] minutes. This time is in addition to time spent performing reported procedures but includes the following: [x] Data Review and interpretation [x] Patient assessment and monitoring of vital signs [x] Documentation [x] Medication orders and management History Interval history: Patient seen and examined, remains on full ventilatory support. no clinical change Hospitalist Physical - Physical exam Narrative exam: VITAL SIGNS: Reviewed. GENERAL: intubated and on mechanical ventilation, Vital signs as documented. HEAD: No signs of head trauma. EYES: Pupils are equal. EARS: unable to assess MOUTH: ETT oinplace NECK: No adenopathy, no JVD. CHEST: Chest with clear breath sounds bilaterally. No wheezes, rales, or rhonchi. CARDIAC: Regular rate and rhythm. S1 and S2, without murmurs, gallops, or rubs. VASCULAR: No Edema. Peripheral pulses normal and equal in all extremities. ABDOMEN: Soft, non tender and non distended. No rebound or guarding, and no masses palpated. Bowel Sounds normal. MUSCULOSKELETAL: unable to examine NEUROLOGIC EXAM: Intubated and sedated PSYCHIATRIC: Mood normal. SKIN: No rash or lesions. - Constitutional Vitals: Temp Pulse Resp BP Pulse Ox 98.1 F 73 14 125/57 100 11/06/18 16:00 11/07/18 06:57 11/07/18 04:00 11/07/18 06:57 11/07/18 06:57 General appearance: Present: severe distress Results - Labs CBC & Chem 7: 11/07/18 11:05 11/08/18 04:27 Labs: Laboratory Last Values WBC 4.4 K/mm3 (4.5-11.0) L 11/06/18 04:09 RBC 3.83 M/mm3 (3.65-5.03) 11/06/18 04:09 Hgb 11.4 gm/dl (10.1-14.3) 11/06/18 04:09 Hct 35.1 % (30.3-42.9) 11/06/18 04:09 MCV 92 fl (79-97) 11/06/18 04:09 MCH 30 pg (28-32) 11/06/18 04:09 MCHC 32 % (30-34) 11/06/18 04:09 RDW 14.5 % (13.2-15.2) 11/06/18 04:09 Plt Count 102 K/mm3 (140-440) L 11/06/18 04:09 Lymph % (Auto) 23.8 % (13.4-35.0) 11/06/18 04:09 [place] % (Auto) 13.2 % (0.0-7.3) H 11/06/18 04:09 Eos % (Auto) 0.0 % (0.0-4.3) 11/06/18 04:09 Baso % (Auto) 0.3 % (0.0-1.8) 11/06/18 04:09 Lymph # 1.0 K/mm3 (1.2-5.4) L 11/06/18 04:09 [place] # 0.6 K/mm3 (0.0-0.8) 11/06/18 04:09 Eos # 0.0 K/mm3 (0.0-0.4) 11/06/18 04:09 Baso # 0.0 K/mm3 (0.0-0.1) 11/06/18 04:09 Seg Neutrophils % 62.7 % (40.0-70.0) 11/06/18 04:09 Seg Neutrophils # 2.7 K/mm3 (1.8-7.7) 11/06/18 04:09 POC ABG pH 7.314 (7.35-7.45) L 11/07/18 09:07 POC ABG pCO2 41.1 (35-45) 11/07/18 09:07 POC ABG pO2 87 (80-105) 11/07/18 09:07 POC ABG HCO3 20.9 (22-26 mml/L) 11/07/18 09:07 POC ABG Total CO2 22 (23-27mmol/L) 11/07/18 09:07 POC ABG O2 Sat 96 11/07/18 09:07 POC ABG Base Excess -5 ((-2) - (+3)mmol/L) 11/07/18 09:07 35 % 11/07/18 09:07 Sodium 152 mmol/L (137-145) H 11/07/18 04:02 Potassium 4.3 mmol/L (3.6-5.0) D 11/07/18 04:02 Chloride 123.4 mmol/L (98-107) H 11/07/18 04:02 Carbon Dioxide 20 mmol/L (22-30) L 11/07/18 04:02 13 mmol/L 11/07/18 04:02 BUN 23 mg/dL (7-17) H 11/07/18 04:02 1.5 mg/dL (0.7-1.2) H 11/07/18 04:02 Estimated GFR 33 ml/min 11/07/18 04:02 15 % 11/07/18 04:02 Glucose 111 mg/dL (65-100) H 11/07/18 04:02 POC Glucose 125 (70-105) H 11/06/18 21:28 Lactic Acid 1.10 mmol/L (0.7-2.0) 11/06/18 16:21 Calcium 10.0 mg/dL (8.4-10.2) 11/07/18 04:02 Phosphorus 1.00 mg/dL (2.5-4.5) L 11/07/18 04:02 Magnesium 2.20 mg/dL (1.7-2.3) 11/05/18 16:31 0.50 mg/dL (0.1-1.2) 11/06/18 04:09 AST 18 units/L (5-40) 11/06/18 04:09 ALT 14 units/L (7-56) 11/06/18 04:09 44 units/L (35-129) 11/06/18 04:09 44.0 umol/L (25-60) 11/05/18 17:28 < 7 units/L (30-135) L 11/05/18 16:31 0.019 ng/mL (0.00-0.029) 11/05/18 16:31 5.7 g/dL (6.3-8.2) L 11/06/18 04:09 3.1 g/dL (3.9-5) L 11/06/18 04:09 1.2 % 11/06/18 04:09 TSH 0.972 mlU/mL (0.270-4.200) 11/05/18 16:31 Yellow (Yellow) 11/05/18 20:47 Slightly-cloudy (Clear) 11/05/18 20:47 5.0 (5.0-7.0) 11/05/18 20:47 Ur Specific [place] 1.016 (1.003-1.030) 11/05/18 20:47 100 mg/dl mg/dL (Negative) 11/05/18 20:47 50 mg/dL (Negative) 11/05/18 20:47 Neg mg/dL (Negative) 11/05/18 20:47 Sm (Negative) 11/05/18 20:47 Pos (Negative) 11/05/18 20:47 Neg (Negative) 11/05/18 20:47 < 2.0 mg/dL (<2.0) 11/05/18 20:47 Ur Leukocyte Esterase Tr (Negative) 11/05/18 20:47 19.0 /HPF (0.0-6.0) H 11/05/18 20:47 4.0 /HPF (0.0-6.0) 11/05/18 20:47 U Epithel Cells (Auto) 1.0 /HPF (0-13.0) 11/05/18 20:47 Few /HPF 11/05/18 20:47 None seen (None Seen) 11/06/18 14:48 155.8 mg/dL (0.1-20.0) H 11/06/18 Unknown 40 mmol/L 11/06/18 Unknown 68 mg/dL (5-11.8) H 11/06/18 Unknown Salicylates < 0.3 mg/dL (2.8-20.0) L 11/05/18 16:31 Acetaminophen < 5.0 ug/mL (10.0-30.0) L 11/05/18 16:31 Plasma/Serum Alcohol < 0.01 % (0-0.07) 11/05/18 16:31 Active Medications - Current Medications Current Medications: Generic Name Dose Route Start Last Admin Trade Name Robinsonq PRN Reason Stop Dose Admin Albuterol 2.5 mg 11/05/18 17:52 Proventil IH Q3HRT PRN Shortness Of Breath Dextrose 50 ml 11/05/18 17:59 D50w (25gm) Syringe IV PRN PRN Hypoglycemia Famotidine 20 mg 11/06/18 10:00 11/06/18 09:51 Pepcid IV 20 mg DAILY NIKKO Administration Fentanyl 50 mcg 11/05/18 16:21 Sublimaze IV Q10MIN PRN ANALGESIA Heparin Sodium (Porcine) 5,000 unit 11/06/18 10:00 11/06/18 21:08 Heparin SUB-Q 5,000 unit Q12HR NIKKO Administration Hydralazine HCl 10 mg 11/05/18 21:30 11/07/18 01:50 Apresoline IV 10 mg Q6HR PRN Administration Hypertension Hydrophilic Ointment 1 applic 11/05/18 16:21 Vaseline Lip Therapy TP Q2HR PRN Dry Lips Fentanyl Citrate 2,000 mcg in 100 mls @ 3.485 mls/hr 11/05/18 17:00 11/07/18 01:48 Fentanyl Drip Premix IV 1 mcg/kg/hr TITR NIKKO 3.485 mls/hr Administration Protocol 1 MCG/KG/HR Lorazepam 100 mg/ Sodium 100 mls @ 1 mls/hr 11/05/18 17:00 11/07/18 08:23 Chloride/ Miscellaneous IV 0 mg/hr Information TITR NIKKO 0 mls/hr Titration Protocol 1 MG/HR Dextrose/Sodium Chloride 1,000 mls @ 75 mls/hr 11/06/18 09:00 11/07/18 01:50 D5/0.45ns IV 75 mls/hr DIRECT NIKKO Administration Cefepime HCl 1 gm in 100 mls @ 200 mls/hr 11/06/18 14:00 11/06/18 21:08 Maxipime/Ns 1 Gm/100 Ml IV 200 mls/hr Q12HR NIKKO Administration Protocol Vancomycin HCl 1 gm in 250 mls @ 166.667 mls/hr 11/06/18 22:00 11/06/18 21:08 Vancomycin/Ns 1 Gm/250 Ml IV 166.667 mls/hr Q24H NIKKO Administration Insulin Human Lispro 0 unit 11/06/18 12:00 11/07/18 00:11 Humalog SUB-Q Not Given Q6HR NIKKO Protocol Lorazepam 2 mg 11/05/18 16:21 11/05/18 17:51 Ativan IV 2 mg Q10MIN PRN Administration Agitation Multi-Ingred Cream/Lotion/Oil/Oint 1 applic 11/05/18 16:21 Artificial Tears Ophth Oint OU Q4HR PRN Dry Eye(s) Sodium Chloride 10 ml 11/05/18 22:00 11/06/18 21:09 Sodium Chloride Flush Syringe 10 Ml IV 10 ml BID NIKKO Administration Sodium Chloride 10 ml 11/05/18 17:52 Sodium Chloride Flush Syringe 10 Ml IV PRN PRN LINE FLUSH Nutrition/Malnutrition Assess - Dietary Evaluation Nutrition/Malnutrition Findings: Nutrition Notes Start: 11/06/18 16:18 Freq: Status: Active Protocol: Document 11/06/18 16:18 RM (Rec: 11/06/18 16:23 RM [email or web address]) Nutrition Notes Need for Assessment generated from: MD Order Initial or Follow up Assessment Current Diagnosis Acute Kidney Injury, Respiratory Failure Other Pertinent Diagnosis Encephalopathy Current Diet NPO Labs/Tests Na 150 K 2.7 Pertinent Medications Reviewed Height 5 ft 5 in Weight 69.7 kg Usual Body Weight 75 kg [place] Body Weight (kg) 56.81 BMI 25.5 Weight change and time frame 7% wt loss Subjective/Other Information Consulted for evaluate nutritional intake. Screened for malnutrition. Pt and pt son in room at time of visit. Pt on vent. Pt son stated that [employer] pt had not eaten X 2 days. Stated UBW is 165 lbs but fluctuates. Noted temporal wasting. Burn Absent Trauma Absent #1 Nutrition Diagnosis Inadequate oral intake Etiology on vent As Evidenced by Signs and Symptoms NPO status Is patient on ventilator? Yes Is Patient Ambulatory and/or Out of Bed No REE-([place]-confined to bed) 1390.584 Calculation Used for Recommendations [place] Additional Notes Protein Needs: 84-139g (1.2-2g /kg) Fluid Needs: 1 ml/kcal Nutrition Intervention Change Diet Order: TF consult Nutrition Support: Vital 1.2 at 50 ml/hr Water flush of 200 mls q 4 hrs until hypernatremia resolves. Water flush of 100 mls q 4 hrs once hyperntremia resolves. Kcal 1,440 Protein (gm) 90 Fluid (mL) 973 Goal #1 TF consult Anticipated Discharge Needs: Unable to determine at this time Follow-Up By: 11/08/18 Additional Comments Follow for TF consult
--- NOTE | 2018-11-07 09:39 | Progress Note ---
Assessment and Plan Acute Respiratory Failure with Hypoxia Gram positive bacteremia (in clusters) Possible Seizure Lactic Acidosis Hypernatermia Acute Metabolic Encephalopathy BRAD possible secondary to Ischemic ATN - daily SAT's and SBT's as tolerated (ABG sub-optimal and AMS is rate limiting factor to safe extubation acutely)[rest on AC qhs] - discontinue mckoy catheter - schedule bronchodilators in short term - follow 2D ECHO re: ? vegetations - follow EEG report re: ? status epilepticus - continue antibiotics per ID rec's - nutrition consulted and to begin tube feeds - continue supplemental oxygen as needed to keep O2 sat's > 90% - continue bronchodilators with pulmonary hygiene per RT - continue lung protective strategies - daily CXR and ABG in short term - VAP bundle addressed - continue accuchecks with glycemic control per SSI for target blood glucose <180mg/dL - Agitation management - Titrate sedation to RASS 0 to -1 - Prevention of delirium, maintenance of sleep-wake cycle - Azotemia per nephrology; continue gentle hydration - Avoid nephrotoxic agents, adjust all antibiotics and medications for CrCL and GFR - VTE and Stress ulcer prophylaxis - continue other care per attending / other consultants ... re-evaluate in am & prn CONDITION: CRITICAL PROGNOSIS: GRAVE to GUARDED CODE STATUS: FULL CODE The high probability of a clinically significant, sudden or life-threatening deterioration of the [respiratory, cardiac and neurologic] system(s) required my full and direct attention, intervention and personal management. The aggregate critical care time was [35] minutes without overlap. Time includes spent on; [x] Data Review and interpretation [x] Patient assessment and monitoring of vital signs [x] Documentation [x] Medication orders and management Subjective Date of service: 11/07/18 Principal diagnosis: Ac hypoxemic Resp Failure ; Possible Seizure; Ac. Met Encephalopathy; BRAD Interval history: Patient is seen today for: Acute Respiratory Failure with Hypoxemia; Gram positive bacteremia (in clusters); Possible Seizure; Lactic Acidosis; Hypernatermia; Acute Metabolic Encephalopathy; BRAD possible secondary to Ischemic ATN Seen and examined at bedside; 24hour events reviewed; nursing and respiratory care staff consulted; no adverse overnight events reported to me; resting peacefully in bed; on SBT but still with AMS; 2D ECHO being done at time of my evaluation; no emesis or overt aspiration; remains on MVS Objective Vital Signs - 12hr 07/02/1511/07/18 11/07/18 22:00 00:00 00:07 Pulse Rate 72 77 Pulse Rate [ 77 Apical] Respiratory 14 Rate Blood Pressure 164/56 O2 Sat by Pulse 100 100 Oximetry 11/07/18 11/07/18 11/07/18 01:50 04:00 04:57 Pulse Rate 84 75 Pulse Rate [ 73 Apical] Respiratory 14 Rate Blood Pressure 176/61 134/49 O2 Sat by Pulse 100 100 Oximetry 11/07/18 06:57 Pulse Rate 73 Pulse Rate [ Apical] Respiratory Rate Blood Pressure 125/57 O2 Sat by Pulse 100 Oximetry Constitutional: appears uncomfortable, other (elderly looking CF, normocephalic and astraumatic with mildly increased respiratory effort on MVS) Eyes: non-icteric ENT: oropharynx moist, other (ETT 23 cm JORDAN) Neck: supple, no lymphadenopathy, no JVD, other (no thyromegaly) Effort: mildly labored Ascultation: Bilateral: diminished breath sounds, rhonchi (bases) Percussion: Bilateral: not dull Cardiovascular: regular rate and rhythm, murmur noted (systolic) Gastrointestinal: normoactive bowel sounds, soft, non-tender, non-distended Integumentary: normal Extremities: no cyanosis, no edema, pink and warm, pulses normal, no ischemia or petechiae Neurologic: non-focal exam (grossly), pupils equal and round, CN II-XII normal, unable to assess Psychiatric: other (unable to assess re: AMS) CBC and BMP: 11/07/18 11:05 11/07/18 04:02 ABG, PT/INR, D-dimer: ABG POC ABG pH 7.314 (7.35-7.45) L 11/07/18 09:07 POC ABG pCO2 41.1 (35-45) 11/07/18 09:07 POC ABG pO2 87 (80-105) 11/07/18 09:07 POC ABG HCO3 20.9 (22-26 mml/L) 11/07/18 09:07 POC ABG Total CO2 22 (23-27mmol/L) 11/07/18 09:07 POC ABG O2 Sat 96 11/07/18 09:07 Abnormal lab findings: Abnormal Labs 11/05/18 11/05/18 11/05/18 16:31 16:31 16:31 WBC Plt Count 139 L Hale % (Auto) Lymph # 0.7 L Seg Neutrophils % 78.8 H POC ABG pH POC ABG pCO2 POC ABG pO2 Sodium 148 H Potassium 3.2 L Chloride 110.6 H Carbon Dioxide 17 L BUN 18 H Creatinine 1.9 H Glucose 205 H POC Glucose Lactic Acid 8.20 H* Calcium 10.9 H Phosphorus Total Creatine Kinase Total Protein Albumin 3.6 L Urine WBC (Auto) Urine Creatinine Urine Total Protein Salicylates Acetaminophen 11/05/18 11/05/18 11/05/18 16:31 16:31 16:31 WBC Plt Count Hale % (Auto) Lymph # Seg Neutrophils % POC ABG pH POC ABG pCO2 POC ABG pO2 Sodium Potassium Chloride Carbon Dioxide BUN Creatinine Glucose POC Glucose Lactic Acid Calcium Phosphorus Total Creatine Kinase < 7 L Total Protein Albumin Urine WBC (Auto) Urine Creatinine Urine Total Protein Salicylates < 0.3 L Acetaminophen < 5.0 L 11/05/18 11/05/18 11/05/18 17:29 17:42 20:47 WBC Plt Count Hale % (Auto) Lymph # Seg Neutrophils % POC ABG pH POC ABG pCO2 33.4 L POC ABG pO2 136 H Sodium Potassium Chloride Carbon Dioxide BUN Creatinine Glucose POC Glucose Lactic Acid 3.30 H* Calcium Phosphorus Total Creatine Kinase Total Protein Albumin Urine WBC (Auto) 19.0 H Urine Creatinine Urine Total Protein Salicylates Acetaminophen 11/05/18 11/05/18 11/06/18 20:47 22:42 04:09 WBC 4.4 L Plt Count 102 L Hale % (Auto) 13.2 H Lymph # 1.0 L Seg Neutrophils % POC ABG pH POC ABG pCO2 POC ABG pO2 Sodium Potassium Chloride Carbon Dioxide BUN Creatinine Glucose POC Glucose 121 H Lactic Acid Calcium Phosphorus Total Creatine Kinase Total Protein Albumin Urine WBC (Auto) Urine Creatinine 166.9 H Urine Total Protein Salicylates Acetaminophen 11/06/18 11/06/18 11/06/18 04:09 05:05 07:31 WBC Plt Count Hale % (Auto) Lymph # Seg Neutrophils % POC ABG pH 7.509 H POC ABG pCO2 < 30 L POC ABG pO2 115 H Sodium 150 H Potassium 2.7 L* Chloride 118.2 H Carbon Dioxide 21 L BUN 21 H Creatinine 1.6 H Glucose 125 H POC Glucose Lactic Acid 2.50 H* Calcium Phosphorus Total Creatine Kinase Total Protein 5.7 L Albumin 3.1 L Urine WBC (Auto) Urine Creatinine Urine Total Protein Salicylates Acetaminophen 11/06/18 11/06/18 11/06/18 12:04 16:21 18:04 WBC Plt Count Hale % (Auto) Lymph # Seg Neutrophils % POC ABG pH POC ABG pCO2 POC ABG pO2 Sodium Potassium 5.4 H D Chloride Carbon Dioxide BUN Creatinine Glucose POC Glucose 122 H 110 H Lactic Acid Calcium Phosphorus Total Creatine Kinase Total Protein Albumin Urine WBC (Auto) Urine Creatinine Urine Total Protein Salicylates Acetaminophen 11/06/18 11/06/18 11/07/18 21:28 Unknown 04:02 WBC Plt Count Hale % (Auto) Lymph # Seg Neutrophils % POC ABG pH POC ABG pCO2 POC ABG pO2 Sodium 152 H Potassium Chloride 123.4 H Carbon Dioxide 20 L BUN 23 H Creatinine 1.5 H Glucose 111 H POC Glucose 125 H Lactic Acid Calcium Phosphorus 1.00 L Total Creatine Kinase Total Protein Albumin Urine WBC (Auto) Urine Creatinine 155.8 H Urine Total Protein 68 H Salicylates Acetaminophen 11/07/18 09:07 WBC Plt Count Hale % (Auto) Lymph # Seg Neutrophils % POC ABG pH 7.314 L POC ABG pCO2 POC ABG pO2 Sodium Potassium Chloride Carbon Dioxide BUN Creatinine Glucose POC Glucose Lactic Acid Calcium Phosphorus Total Creatine Kinase Total Protein Albumin Urine WBC (Auto) Urine Creatinine Urine Total Protein Salicylates Acetaminophen Chest x-ray: image reviewed (rotatted to left; LLL costophrenic blunting vs small volume atelectasis; ETT in good position) Allied health notes reviewed: nursing
[2018-11-07] MEDS: SODIUM CHLORIDE FLUSH SYRINGE 10 ML IV SCH ×2 (10:49→21:14)
[2018-11-07] MEDS: MAXIPIME/NS 1 GM/100 ML 1 GM/100 ML BAG IV SCH ×2 (10:49→21:13)
[2018-11-07] MEDS: HEPARIN SUB-Q SCH ×2 (10:50→21:12)
[2018-11-07] MEDS: PEPCID IV SCH (10:50)
[2018-11-07] MEDS ORDERED: SODIUM BICARBONATE FEEDTUBE PRN (11:07)
[2018-11-07] MEDS ORDERED: PANCREAZE DR 10,500 UNIT FEEDTUBE PRN (11:07)
[2018-11-07] MEDS ORDERED: SIMPLE SYRUP FEEDTUBE PRN ×4 (11:07→11:48)
--- NOTE | 2018-11-07 11:11 | Progress Note ---
Assessment and Plan Cultures: 11/05/2018 blood culture: 2/4 bottles (both sets) with GPC in clusters 11/05/2018 urine culture: skin jama 11/05/2018 resp culture: oropharyngeal contamination. A/P: 82-year-old female with hypertension, heart disease, hyperlipidemia, neuropathy who has been living with her and was his primary caregiver and apparently had not been feeling well for the last 1 week, now admitted with AMS: 1) Sepsis: Fever on admission, lactic acidosis. No leukocytosis. Chest x-ray without evidence of pneumonia. UA with minimal pyuria, doubt UTI. Also with GPC bacteremia. Empiric cefepime and vancomycin for now. Follow-up blood cultures. 2) Lactic acidosis: Lactate improving. CT abdomen and pelvis without contrast showed no acute endings. 3) Acute encephalopathy: Neurology following. Question related to seizures. 4) BRAD: Renally dose antibiotics. 5) GPC bacteremia: 2/4 bottles (both sets) with GPC in clusters. TTE ordered. Continue empiric Vancomycin. Repeat blood cultures. Recs: Repeat blood cultures ordered TTE ordered continue IV cefepime and vancomycin, renally adjusted Follow-up blood cultures for ID and sensitivity Tia Farah MD, FACP [facility] ([facility] C: [phone] O: [phone] F: [phone] Subjective Date of service: 11/07/18 Interval history: No fever. Remains unresponsive, twitching at times. On the vent. Son at bedside. Objective - Exam Narrative Exam: Physical Exam: Constitutional: unresponsive, intubated Head, Ears, Nose: Normocephalic, atraumatic. External ears, nose normal Eyes: Conjunctivae/corneas clear. No icterus. No ptosis. Neck: Supple, no meningeal signs Oral: intubated Cardiovascular: S1, S2 normal. Respiratory: Good air entry, clear to auscultation bilaterally GI: Soft, non-tender; bowel sounds normal. No peritoneal signs Musculoskeletal: No pedal edema, no cyanosis. Skin: No rash or abscess Hem/Lymphatic: No palpable cervical or supraclavicular nodes. No lymphangitis Psych: no agitation Neurological: unresponsive, intubated, on vent - Constitutional Vitals: Vital Signs Temp Pulse Resp BP Pulse Ox 98.1 F 73 14 125/57 100 07/10/19 16:00 11/07/18 08:00 11/07/18 04:00 11/07/18 08:00 11/07/18 08:00 Temperature -Last 24 Hours Temperature 98.1 F Temperature 97.9 F - Labs CBC & Chem 7: 11/06/18 04:09 11/07/18 04:02 Labs: Abnormal lab results 11/06/18 11/06/18 11/06/18 Range/Units 05:05 12:04 16:21 POC ABG pH (7.35-7.45) POC ABG pCO2 < 30 L (35-45) Sodium (137-145) mmol/L Potassium 5.4 H D (3.6-5.0) mmol/L Chloride (98-107) mmol/L Carbon Dioxide (22-30) mmol/L BUN (7-17) mg/dL Creatinine (0.7-1.2) mg/dL Glucose (65-100) mg/dL POC Glucose 122 H (70-105) Phosphorus (2.5-4.5) mg/dL Urine Creatinine (0.1-20.0) mg/dL Urine Total Protein (5-11.8) mg/dL 11/06/18 11/06/18 11/06/18 Range/Units 18:04 21:28 Unknown POC ABG pH (7.35-7.45) POC ABG pCO2 (35-45) Sodium (137-145) mmol/L Potassium (3.6-5.0) mmol/L Chloride (98-107) mmol/L Carbon Dioxide (22-30) mmol/L BUN (7-17) mg/dL Creatinine (0.7-1.2) mg/dL Glucose (65-100) mg/dL POC Glucose 110 H 125 H (70-105) Phosphorus (2.5-4.5) mg/dL Urine Creatinine 155.8 H (0.1-20.0) mg/dL Urine Total Protein 68 H (5-11.8) mg/dL 11/07/18 11/07/18 Range/Units 04:02 09:07 POC ABG pH 7.314 L (7.35-7.45) POC ABG pCO2 (35-45) Sodium 152 H (137-145) mmol/L Potassium (3.6-5.0) mmol/L Chloride 123.4 H (98-107) mmol/L Carbon Dioxide 20 L (22-30) mmol/L BUN 23 H (7-17) mg/dL Creatinine 1.5 H (0.7-1.2) mg/dL Glucose 111 H (65-100) mg/dL POC Glucose (70-105) Phosphorus 1.00 L (2.5-4.5) mg/dL Urine Creatinine (0.1-20.0) mg/dL Urine Total Protein (5-11.8) mg/dL
[2018-11-07 11:26] LABS: Hematocrit 32.8 % (30.3-42.9); Hemoglobin 10.6 gm/dl (10.1-14.3); Mean Corpuscular HGB Conc 33 % (30-34); Mean Corpuscular Volume 91 fl (79-97); Red Blood Count 3.62 M/mm3 (3.65-5.03); Red Cell Distribution Width 14.7 % (13.2-15.2)
--- NOTE | 2018-11-07 11:53 | Progress Note ---
Assessment and Plan Acute Renal Failure likely secondary to ischemic ATN r/o obstruction: Hypokalemia: Hypernatremia: -Cr is slowly trending down, cont IVF -Baseline serum creatinine unknown -Hypernatremia-free water flushes re-ordered -renal US is negative for obstruction -Monitor I/O's -Avoid nephrotoxic agents -Obtain daily weights -Monitor renal function closely SIRS versus sepsis: -On empiric cefepime and vancomycin -Blood cultures-pending -ID onboard Acute encephalopathy: Possible Seizures -Neurology consulted Acute Hypoxic Respiratory Failure: -Intubated as per Pulmonary Subjective Date of service: 11/07/18 Principal diagnosis: BRAD Interval history: patient is sedated and intubated, son at bedside, all questions answered Objective - Vital Signs Vital signs: Vital Signs - 12hr 11/07/18 11/07/18 11/07/18 00:00 00:07 01:50 Pulse Rate 77 84 Pulse Rate [ 77 Apical] Respiratory 14 Rate Blood Pressure 164/56 176/61 O2 Sat by Pulse 100 100 Oximetry 11/07/18 11/07/18 11/07/18 04:00 04:57 06:57 Pulse Rate 75 73 Pulse Rate [ 73 Apical] Respiratory 14 Rate Blood Pressure 134/49 125/57 O2 Sat by Pulse 100 100 100 Oximetry 11/07/18 08:00 Pulse Rate 73 Pulse Rate [ Apical] Respiratory Rate Blood Pressure 125/57 O2 Sat by Pulse 100 Oximetry - General Appearance General appearance: well-developed, well-nourished, sedated on ventilator, intubated EENT: ATNC, PERRL, mucous membranes dry Neck: no JVD, no carotid bruit Respiratory: Present: Clear to Ascultation. Absent: Rales, Ronchi Cardiology: regular, S1S2 Gastrointestinal: normoactive bowel sounds, no tenderness, no distended Integumentary: no rash, warm and dry Neurologic: other (sedated) Musculoskeletal: other (no edema in BLE) Psychiatric: other (intubated) - Lab 11/07/18 11:05 11/07/18 04:02 Most recent lab results Calcium 10.0 mg/dL (8.4-10.2) 11/07/18 04:02 Phosphorus 1.00 mg/dL (2.5-4.5) L 11/07/18 04:02 Magnesium 2.20 mg/dL (1.7-2.3) 11/05/18 16:31 155.8 mg/dL (0.1-20.0) H 11/06/18 Unknown 40 mmol/L 11/06/18 Unknown 68 mg/dL (5-11.8) H 11/06/18 Unknown Medications & Allergies - Medications Allergies/Adverse Reactions: Allergies aspirin Allergy (Verified 11/06/18 17:06) Unknown Home Medications: Home Medications Medication Instructions Recorded Confirmed Last Taken Type Brimonidine Tartrate [Brimonidine 2 drops OU QHS 11/06/18 11/06/18 Unknown History Tartrate 0.2%] Carvedilol [Coreg] 25 mg PO BID 11/06/18 11/06/18 Unknown History Furosemide [Lasix TAB] 20 mg PO HS 11/06/18 11/06/18 Unknown History Furosemide [Lasix TAB] 40 mg PO QAM 11/06/18 11/06/18 Unknown History Gabapentin [Neurontin] 800 mg PO BID 11/06/18 11/06/18 Unknown History Pravastatin Sodium [Pravastatin] 20 mg PO DAILY 11/06/18 11/06/18 Unknown History Ropinirole HCl [Requip] 1 mg PO TID 11/06/18 11/06/18 Unknown History Active Medications: Generic Name Dose Route Start Last Admin Trade Name Freq PRN Reason Stop Dose Admin Albuterol 2.5 mg 11/05/18 17:52 Proventil IH Q3HRT PRN Shortness Of Breath Lipase/Protease/Amylase 1 each 11/07/18 11:07 Pancredoris Cruz 10,500 Unit FEEDTUBE PRN PRN For Clogged Feeding Tube Dextrose 50 ml 11/05/18 17:59 D50w (25gm) Syringe IV PRN PRN Hypoglycemia Famotidine 20 mg 11/06/18 10:00 11/07/18 10:50 Pepcid IV 20 mg DAILY NIKKO Administration Fentanyl 50 mcg 11/05/18 16:21 Sublimaze IV Q10MIN PRN ANALGESIA Heparin Sodium (Porcine) 5,000 unit 11/06/18 10:00 11/07/18 10:50 Heparin SUB-Q 5,000 unit Q12HR NIKKO Administration Hydralazine HCl 10 mg 11/05/18 21:30 11/07/18 01:50 Apresoline IV 10 mg Q6HR PRN Administration Hypertension Hydrophilic Ointment 1 applic 11/05/18 16:21 Vaseline Lip Therapy TP Q2HR PRN Dry Lips Fentanyl Citrate 2,000 mcg in 100 mls @ 3.485 mls/hr 11/05/18 17:00 11/07/18 01:48 Fentanyl Drip Premix IV 1 mcg/kg/hr TITR NIKKO 3.485 mls/hr Administration Protocol 1 MCG/KG/HR Lorazepam 100 mg/ Sodium 100 mls @ 1 mls/hr 11/05/18 17:00 11/07/18 08:23 Chloride/ Miscellaneous IV 0 mg/hr Information TITR NIKKO 0 mls/hr Titration Protocol 1 MG/HR Dextrose/Sodium Chloride 1,000 mls @ 75 mls/hr 11/06/18 09:00 11/07/18 01:50 D5/0.45ns IV 75 mls/hr DIRECT NIKKO Administration Cefepime HCl 1 gm in 100 mls @ 200 mls/hr 11/06/18 14:00 11/07/18 10:49 Maxipime/Ns 1 Gm/100 Ml IV 200 mls/hr Q12HR NIKKO Administration Protocol Vancomycin HCl 1 gm in 250 mls @ 166.667 mls/hr 11/06/18 22:00 11/06/18 21:08 Vancomycin/Ns 1 Gm/250 Ml IV 166.667 mls/hr Q24H NIKKO Administration Insulin Human Lispro 0 unit 11/06/18 12:00 11/07/18 00:11 Humalog SUB-Q Not Given Q6HR NIKKO Protocol Lorazepam 2 mg 11/05/18 16:21 11/05/18 17:51 Ativan IV 2 mg Q10MIN PRN Administration Agitation Multi-Ingred Cream/Lotion/Oil/Oint 1 applic 11/05/18 16:21 Artificial Tears Ophth Oint OU Q4HR PRN Dry Eye(s) Simple Syrup 15 ml 11/07/18 11:07 Simple Syrup FEEDTUBE PRN PRN Hypoglycemia Simple Syrup 30 ml 11/07/18 11:07 Simple Syrup FEEDTUBE PRN PRN Hypoglycemia Sodium Bicarbonate 325 mg 11/07/18 11:07 Sodium Bicarbonate FEEDTUBE PRN PRN For Clogged Feeding Tube Sodium Chloride 10 ml 11/05/18 22:00 11/07/18 10:49 Sodium Chloride Flush Syringe 10 Ml IV 10 ml BID NIKKO Administration Sodium Chloride 10 ml 11/05/18 17:52 Sodium Chloride Flush Syringe 10 Ml IV PRN PRN LINE FLUSH
[2018-11-07] MEDS ORDERED: SODIUM PHOSPHATE 30 MMOL in NACL 0.9% 500 ML 500 ML IV ONE (13:11)
[2018-11-07 13:28] LABS: Platelet Count 77 K/mm3 (140-440)
[2018-11-07] MEDS ORDERED: KPHOS 15 MMOL in NACL 0.9% 250ML 250 ML IV ONE (14:00)
[2018-11-07] MEDS: PHOS-NAK PO SCH (18:18)
[2018-11-07] MEDS ORDERED: LOPRESSOR IV ONE (18:59)
[2018-11-07] MEDS: VANCOMYCIN/NS 1 GM/250 ML 1 GM/250 ML BAG IV SCH (21:13)
--- NOTE | 2018-11-08 03:00 | XRay Report ---
CHEST 1 VIEW INDICATION: follow up respiratory failure. COMPARISON: One day prior. FINDINGS: Support devices: Unchanged. Heart: Stable. Lungs/Pleura: Left basilar atelectasis has improved. No significant pleural abnormality. IMPRESSION: 1. Improving left basilar airspace disease. No new findings. Signer Name: Corey Espino MD Signed: 11/08/2018 2:55 AM Workstation Name: [id number]
[2018-11-08] MEDS: ATIVAN IV PRN (04:47)
[2018-11-08] MEDS: APRESOLINE IV PRN (04:53)
[2018-11-08] MEDS ORDERED: NACL 0.9% 500 ML 500 ML IV ONE (05:45)
[2018-11-08 06:03] LABS: Calcium 9.4 mg/dL (8.4-10.2)
[2018-11-08] MEDS: PHOS-NAK PO SCH ×4 (06:15→18:15)
[2018-11-08] MEDS: D5/0.45NS 1,000 ML IV SCH (07:20)
[2018-11-08] MEDS ORDERED: LASIX IV NR (07:48)
[2018-11-08] MEDS ORDERED: ROPINIROLE HCL 1 MG PO SCH (08:00)
--- NOTE | 2018-11-08 08:19 | Progress Note ---
Subjective Date of service: 11/08/18 Principal diagnosis: Ac hypoxemic Resp Failure ; Possible Seizure; Ac. Met Encephalopathy; BRAD Interval history: explained to family the meningioma is very small but can trigger seizures jen in light of fact electrolytes and infections/ age issues plan MRI once stable Objective - Vital Sign Vital Signs - 12hr 11/07/18 11/07/18 11/07/18 20:19 21:11 22:00 Temperature Pulse Rate 115 H 102 H 73 Pulse Rate [ Apical] Respiratory Rate Blood Pressure 149/50 115/41 O2 Sat by Pulse 98 Oximetry 11/07/18 11/08/18 11/08/18 23:18 00:00 03:12 Temperature 98.4 F 98.3 F Pulse Rate 120 H Pulse Rate [ 116 H Apical] Respiratory 21 Rate Blood Pressure 170/50 O2 Sat by Pulse 98 Oximetry 11/08/18 11/08/18 04:00 04:53 Temperature Pulse Rate 134 H 103 H Pulse Rate [ 126 H Apical] Respiratory 21 Rate Blood Pressure 202/89 202/89 O2 Sat by Pulse 98 Oximetry - Laboratory Findings CBC and BMP: 11/07/18 11:05 11/08/18 04:27 Abnormal Lab Findings: Abnormal Labs 11/05/18 11/05/18 11/05/18 16:31 16:31 16:31 WBC RBC Plt Count 139 L Bent % (Auto) Lymph # 0.7 L Seg Neutrophils % 78.8 H POC ABG pH POC ABG pCO2 POC ABG pO2 Sodium 148 H Potassium 3.2 L Chloride 110.6 H Carbon Dioxide 17 L BUN 18 H Creatinine 1.9 H Glucose 205 H POC Glucose Lactic Acid 8.20 H* Calcium 10.9 H Phosphorus Total Creatine Kinase C-Reactive Protein Total Protein Albumin 3.6 L Urine WBC (Auto) Urine Creatinine Urine Total Protein Salicylates Acetaminophen 11/05/18 11/05/18 11/05/18 16:31 16:31 16:31 WBC RBC Plt Count Bent % (Auto) Lymph # Seg Neutrophils % POC ABG pH POC ABG pCO2 POC ABG pO2 Sodium Potassium Chloride Carbon Dioxide BUN Creatinine Glucose POC Glucose Lactic Acid Calcium Phosphorus Total Creatine Kinase < 7 L C-Reactive Protein Total Protein Albumin Urine WBC (Auto) Urine Creatinine Urine Total Protein Salicylates < 0.3 L Acetaminophen < 5.0 L 11/05/18 11/05/18 11/05/18 17:29 17:42 20:47 WBC RBC Plt Count Bent % (Auto) Lymph # Seg Neutrophils % POC ABG pH POC ABG pCO2 33.4 L POC ABG pO2 136 H Sodium Potassium Chloride Carbon Dioxide BUN Creatinine Glucose POC Glucose Lactic Acid 3.30 H* Calcium Phosphorus Total Creatine Kinase C-Reactive Protein Total Protein Albumin Urine WBC (Auto) 19.0 H Urine Creatinine Urine Total Protein Salicylates Acetaminophen 11/05/18 11/05/18 11/06/18 20:47 22:42 04:09 WBC 4.4 L RBC Plt Count 102 L Bent % (Auto) 13.2 H Lymph # 1.0 L Seg Neutrophils % POC ABG pH POC ABG pCO2 POC ABG pO2 Sodium Potassium Chloride Carbon Dioxide BUN Creatinine Glucose POC Glucose 121 H Lactic Acid Calcium Phosphorus Total Creatine Kinase C-Reactive Protein Total Protein Albumin Urine WBC (Auto) Urine Creatinine 166.9 H Urine Total Protein Salicylates Acetaminophen 11/06/18 11/06/18 11/06/18 04:09 05:05 07:31 WBC RBC Plt Count Bent % (Auto) Lymph # Seg Neutrophils % POC ABG pH 7.509 H POC ABG pCO2 < 30 L POC ABG pO2 115 H Sodium 150 H Potassium 2.7 L* Chloride 118.2 H Carbon Dioxide 21 L BUN 21 H Creatinine 1.6 H Glucose 125 H POC Glucose Lactic Acid 2.50 H* Calcium Phosphorus Total Creatine Kinase C-Reactive Protein Total Protein 5.7 L Albumin 3.1 L Urine WBC (Auto) Urine Creatinine Urine Total Protein Salicylates Acetaminophen 11/06/18 11/06/18 11/06/18 12:04 16:21 18:04 WBC RBC Plt Count Bent % (Auto) Lymph # Seg Neutrophils % POC ABG pH POC ABG pCO2 POC ABG pO2 Sodium Potassium 5.4 H D Chloride Carbon Dioxide BUN Creatinine Glucose POC Glucose 122 H 110 H Lactic Acid Calcium Phosphorus Total Creatine Kinase C-Reactive Protein Total Protein Albumin Urine WBC (Auto) Urine Creatinine Urine Total Protein Salicylates Acetaminophen 11/06/18 11/06/18 11/07/18 21:28 Unknown 04:02 WBC RBC Plt Count Bent % (Auto) Lymph # Seg Neutrophils % POC ABG pH POC ABG pCO2 POC ABG pO2 Sodium 152 H Potassium Chloride 123.4 H Carbon Dioxide 20 L BUN 23 H Creatinine 1.5 H Glucose 111 H POC Glucose 125 H Lactic Acid Calcium Phosphorus 1.00 L Total Creatine Kinase C-Reactive Protein Total Protein Albumin Urine WBC (Auto) Urine Creatinine 155.8 H Urine Total Protein 68 H Salicylates Acetaminophen 11/07/18 11/07/18 11/07/18 09:07 11:05 15:48 WBC 4.1 L RBC 3.62 L Plt Count 77 L Bent % (Auto) Lymph # Seg Neutrophils % POC ABG pH 7.314 L POC ABG pCO2 POC ABG pO2 Sodium Potassium Chloride Carbon Dioxide BUN Creatinine Glucose POC Glucose Lactic Acid Calcium Phosphorus Total Creatine Kinase C-Reactive Protein 3.50 H Total Protein Albumin Urine WBC (Auto) Urine Creatinine Urine Total Protein Salicylates Acetaminophen 11/08/18 11/08/18 04:27 05:29 WBC RBC Plt Count Bent % (Auto) Lymph # Seg Neutrophils % POC ABG pH POC ABG pCO2 POC ABG pO2 Sodium 146 H Potassium Chloride 117.1 H Carbon Dioxide 18 L BUN 19 H Creatinine 1.6 H Glucose 111 H POC Glucose 108 H Lactic Acid Calcium Phosphorus Total Creatine Kinase C-Reactive Protein Total Protein Albumin Urine WBC (Auto) Urine Creatinine Urine Total Protein Salicylates Acetaminophen
[2018-11-08] MEDS: COREG PO SCH ×2 (09:02→22:27)
[2018-11-08] MEDS: NEURONTIN PO SCH ×2 (09:03→22:41)
[2018-11-08] MEDS: PEPCID IV SCH (09:03)
[2018-11-08] MEDS: MAXIPIME/NS 1 GM/100 ML 1 GM/100 ML BAG IV SCH ×2 (09:04→22:40)
[2018-11-08] MEDS: SODIUM CHLORIDE FLUSH SYRINGE 10 ML IV SCH ×2 (09:05→22:41)
[2018-11-08] MEDS: HEPARIN SUB-Q SCH (09:17)
--- NOTE | 2018-11-08 09:32 | Progress Note ---
Assessment and Plan Assessment and plan: 82 YO Female presented to then ED after the patient was found down and unresponsive and reports seizure like activity. On EMS arrival patient was noted to have a GCS of 3 and was placed on oxygen mask and intubated in the ED on arrival. Initial Temp was noted as 102.2 In the ED patient was intubated due to AMS and Acute Hypoxemic Respiratory Failure, and is unable to protect her airway, Teleneurology consulted in ED. Pt deemed not a candidate for TPA. No prior admission for review. CXR: worsening left lobar infiltrate Renal us: Small left renal cyst, negative for obstruction or mass SIRS/Sepsis: Presumed Left Lobar Pneumonia: Continue Abx, ID following. Cultures remain with no growth at this time. Hypertensive Urgency: Resume Coreg, Hydralazin Acute Respiratory Failure with Hypoxia Possible Seizure: MRI when stable Per Nurology. Lactic Acidosis: Hypernatermia: Continue free water Acute Metabolic Encephalopathy: BRAD possible secondary to Ischemic ATN: improving and stable. Nephrology f geovany. Patient on HF management at home. Will discuss resuming Lasix PLAN: Continue supportive care Cultures are negative so far VAP bundle Vent management per Truck Engine Technician Replace electrolytes, sodium improving some The patient son informs me the patient has been very lethargic for a few weeks n ow and has been mostly in bed. She is the primary care fiver for her who is battling metastatic disease Spoke to family at bedside The high probability of a clinically significant, sudden or life threatening deterioration of the [Neuro, cardiac, respiratory, renal] system(s) required my full and direct attention, intervention and personal management. The aggregate critical care time was [35] minutes. This time is in addition to time spent performing reported procedures but includes the following: [x] Data Review and interpretation [x] Patient assessment and monitoring of vital signs [x] Documentation [x] Medication orders and management History Interval history: Patient seen and examined, remains on full ventilatory support. no clinical change, BP mildly elevated but now improve Hospitalist Physical - Physical exam Narrative exam: VITAL SIGNS: Reviewed. GENERAL: intubated and on mechanical ventilation, Vital signs as documented. HEAD: No signs of head trauma. EYES: Pupils are equal. EARS: unable to assess MOUTH: ETT oinplace NECK: No adenopathy, no JVD. CHEST: Chest with diminshed breath sounds bilaterally. No wheezes, rales, or rhonchi. CARDIAC: Regular rate and rhythm. S1 and S2, without murmurs, gallops, or rubs. VASCULAR: No Edema. Peripheral pulses normal and equal in all extremities. ABDOMEN: Soft, non tender and non distended. No rebound or guarding, and no masses palpated. Bowel Sounds normal. MUSCULOSKELETAL: unable to examine, bilateral upper ext non pitting edema NEUROLOGIC EXAM: Intubated and sedated PSYCHIATRIC: Mood normal. SKIN: No rash or lesions. - Constitutional Vitals: Temp Pulse Resp BP Pulse Ox 98.3 F 139 H 28 H 180/78 97 11/08/18 03:12 11/08/18 09:02 11/08/18 08:00 11/08/18 09:02 11/08/18 08:00 General appearance: Present: severe distress Results - Labs CBC & Chem 7: 11/09/18 04:12 11/09/18 04:12 Labs: Laboratory Last Values WBC 4.1 K/mm3 (4.5-11.0) L 11/07/18 11:05 RBC 3.62 M/mm3 (3.65-5.03) L 11/07/18 11:05 Hgb 10.6 gm/dl (10.1-14.3) 11/07/18 11:05 Hct 32.8 % (30.3-42.9) 11/07/18 11:05 MCV 91 fl (79-97) 11/07/18 11:05 MCH 29 pg (28-32) 11/07/18 11:05 MCHC 33 % (30-34) 11/07/18 11:05 RDW 14.7 % (13.2-15.2) 11/07/18 11:05 Plt Count 77 K/mm3 (140-440) L 11/07/18 11:05 Lymph % (Auto) 23.8 % (13.4-35.0) 11/06/18 04:09 Lynn % (Auto) 13.2 % (0.0-7.3) H 11/06/18 04:09 Eos % (Auto) 0.0 % (0.0-4.3) 11/06/18 04:09 Baso % (Auto) 0.3 % (0.0-1.8) 11/06/18 04:09 Lymph # 1.0 K/mm3 (1.2-5.4) L 11/06/18 04:09 Lynn # 0.6 K/mm3 (0.0-0.8) 11/06/18 04:09 Eos # 0.0 K/mm3 (0.0-0.4) 11/06/18 04:09 Baso # 0.0 K/mm3 (0.0-0.1) 11/06/18 04:09 Seg Neutrophils % 62.7 % (40.0-70.0) 11/06/18 04:09 Seg Neutrophils # 2.7 K/mm3 (1.8-7.7) 11/06/18 04:09 POC ABG pH 7.314 (7.35-7.45) L 11/07/18 09:07 POC ABG pCO2 41.1 (35-45) 11/07/18 09:07 POC ABG pO2 87 (80-105) 11/07/18 09:07 POC ABG HCO3 20.9 (22-26 mml/L) 11/07/18 09:07 POC ABG Total CO2 22 (23-27mmol/L) 11/07/18 09:07 POC ABG O2 Sat 96 11/07/18 09:07 POC ABG Base Excess -5 ((-2) - (+3)mmol/L) 11/07/18 09:07 35 % 11/07/18 09:07 Sodium 146 mmol/L (137-145) H 11/08/18 04:27 Potassium 4.3 mmol/L (3.6-5.0) 11/08/18 04:27 Chloride 117.1 mmol/L (98-107) H 11/08/18 04:27 Carbon Dioxide 18 mmol/L (22-30) L 11/08/18 04:27 15 mmol/L 11/08/18 04:27 BUN 19 mg/dL (7-17) H 11/08/18 04:27 1.6 mg/dL (0.7-1.2) H 11/08/18 04:27 Estimated GFR 31 ml/min 11/08/18 04:27 12 % 11/08/18 04:27 Glucose 111 mg/dL (65-100) H 11/08/18 04:27 POC Glucose 108 (70-105) H 11/08/18 05:29 Lactic Acid 1.10 mmol/L (0.7-2.0) 11/06/18 16:21 Calcium 9.4 mg/dL (8.4-10.2) 11/08/18 04:27 Phosphorus 3.00 mg/dL (2.5-4.5) D 11/08/18 04:27 Magnesium 2.20 mg/dL (1.7-2.3) 11/05/18 16:31 0.50 mg/dL (0.1-1.2) 11/06/18 04:09 AST 18 units/L (5-40) 11/06/18 04:09 ALT 14 units/L (7-56) 11/06/18 04:09 44 units/L (35-129) 11/06/18 04:09 44.0 umol/L (25-60) 11/05/18 17:28 < 7 units/L (30-135) L 11/05/18 16:31 0.019 ng/mL (0.00-0.029) 11/05/18 16:31 3.50 mg/dL (0.00-1.30) H 11/07/18 15:48 5.7 g/dL (6.3-8.2) L 11/06/18 04:09 3.1 g/dL (3.9-5) L 11/06/18 04:09 1.2 % 11/06/18 04:09 TSH 0.972 mlU/mL (0.270-4.200) 11/05/18 16:31 Yellow (Yellow) 11/05/18 20:47 Slightly-cloudy (Clear) 11/05/18 20:47 5.0 (5.0-7.0) 11/05/18 20:47 Ur Specific Thompson 1.016 (1.003-1.030) 11/05/18 20:47 100 mg/dl mg/dL (Negative) 11/05/18 20:47 50 mg/dL (Negative) 11/05/18 20:47 Neg mg/dL (Negative) 11/05/18 20:47 Sm (Negative) 11/05/18 20:47 Pos (Negative) 11/05/18 20:47 Neg (Negative) 11/05/18 20:47 < 2.0 mg/dL (<2.0) 11/05/18 20:47 Ur Leukocyte Esterase Tr (Negative) 11/05/18 20:47 19.0 /HPF (0.0-6.0) H 11/05/18 20:47 4.0 /HPF (0.0-6.0) 11/05/18 20:47 U Epithel Cells (Auto) 1.0 /HPF (0-13.0) 11/05/18 20:47 Few /HPF 11/05/18 20:47 None seen (None Seen) 11/06/18 14:48 155.8 mg/dL (0.1-20.0) H 11/06/18 Unknown 40 mmol/L 11/06/18 Unknown 68 mg/dL (5-11.8) H 11/06/18 Unknown Salicylates < 0.3 mg/dL (2.8-20.0) L 11/05/18 16:31 Acetaminophen < 5.0 ug/mL (10.0-30.0) L 11/05/18 16:31 Plasma/Serum Alcohol < 0.01 % (0-0.07) 11/05/18 16:31 Active Medications - Current Medications Current Medications: Generic Name Dose Route Start Last Admin Trade Name Freq PRN Reason Stop Dose Admin Albuterol 2.5 mg 11/05/18 17:52 Proventil IH Q3HRT PRN Shortness Of Breath Lipase/Protease/Amylase 1 each 11/07/18 11:07 Pancredoris Cruz 10,500 Unit FEEDTUBE PRN PRN For Clogged Feeding Tube Carvedilol 25 mg 11/08/18 10:00 11/08/18 09:02 Coreg PO 25 mg BID NIKKO Administration Dextrose 50 ml 11/05/18 17:59 D50w (25gm) Syringe IV PRN PRN Hypoglycemia Famotidine 20 mg 11/06/18 10:00 11/08/18 09:03 Pepcid IV 20 mg DAILY NIKKO Administration Fentanyl 50 mcg 11/05/18 16:21 11/08/18 04:48 Sublimaze IV 50 mcg Q10MIN PRN Administration ANALGESIA Furosemide 40 mg 11/08/18 07:48 11/08/18 08:54 Lasix IV 11/08/18 10:00 40 mg ONCE NR Administration Gabapentin 800 mg 11/08/18 10:00 11/08/18 09:03 Neurontin PO 800 mg BID NIKKO Administration Heparin Sodium (Porcine) 5,000 unit 11/06/18 10:00 11/08/18 09:17 Heparin SUB-Q 5,000 unit Q12HR NIKKO Administration Hydralazine HCl 10 mg 11/05/18 21:30 11/08/18 04:53 Apresoline IV 10 mg Q6HR PRN Administration Hypertension Hydrophilic Ointment 1 applic 11/05/18 16:21 Vaseline Lip Therapy TP Q2HR PRN Dry Lips Fentanyl Citrate 2,000 mcg in 100 mls @ 3.485 mls/hr 11/05/18 17:00 11/07/18 07:00 Fentanyl Drip Premix IV 0 mcg/kg/hr TITR NIKKO 0 mls/hr Titration Protocol 1 MCG/KG/HR Lorazepam 100 mg/ Sodium 100 mls @ 1 mls/hr 11/05/18 17:00 11/07/18 08:23 Chloride/ Miscellaneous IV 0 mg/hr Information TITR NIKKO 0 mls/hr Titration Protocol 1 MG/HR Dextrose/Sodium Chloride 1,000 mls @ 75 mls/hr 11/06/18 09:00 11/08/18 07:20 D5/0.45ns IV 75 mls/hr DIRECT NIKKO Administration Cefepime HCl 1 gm in 100 mls @ 200 mls/hr 11/06/18 14:00 11/08/18 09:04 Maxipime/Ns 1 Gm/100 Ml IV 200 mls/hr Q12HR NIKKO Administration Protocol Vancomycin HCl 1 gm in 250 mls @ 166.667 mls/hr 11/06/18 22:00 11/07/18 21:13 Vancomycin/Ns 1 Gm/250 Ml IV 166.667 mls/hr Q24H NIKKO Administration Insulin Human Lispro 0 unit 11/06/18 12:00 11/08/18 00:00 Humalog SUB-Q Not Given Q6HR NIKKO Protocol Lorazepam 2 mg 11/05/18 16:21 11/08/18 04:47 Ativan IV 2 mg Q10MIN PRN Administration Agitation Miscellaneous Medication 2 drops 11/08/18 22:00 Brimonidine Tartrate [Brimonidine Tartrate 0.2%] OU QHS NIKKO Multi-Ingred Cream/Lotion/Oil/Oint 1 applic 11/05/18 16:21 Artificial Tears Ophth Oint OU Q4HR PRN Dry Eye(s) Potassium Phos/Sodium Phos 2 each 11/07/18 18:00 11/08/18 06:15 Phos-Nak PO Not Given Q6HR NIKKO Pravastatin Sodium 20 mg 11/08/18 10:00 Pravachol PO DAILY NIKKO Ropinirole HCl 1 mg 11/08/18 09:00 Requip PO TID NIKKO Simple Syrup 15 ml 11/07/18 11:07 Simple Syrup FEEDTUBE PRN PRN Hypoglycemia Simple Syrup 30 ml 11/07/18 11:07 Simple Syrup FEEDTUBE PRN PRN Hypoglycemia Sodium Bicarbonate 325 mg 11/07/18 11:07 Sodium Bicarbonate FEEDTUBE PRN PRN For Clogged Feeding Tube Sodium Chloride 10 ml 11/05/18 22:00 11/08/18 09:05 Sodium Chloride Flush Syringe 10 Ml IV 10 ml BID NIKKO Administration Sodium Chloride 10 ml 11/05/18 17:52 Sodium Chloride Flush Syringe 10 Ml IV PRN PRN LINE FLUSH Nutrition/Malnutrition Assess - Dietary Evaluation Nutrition/Malnutrition Findings: Nutrition Notes Start: 11/06/18 16:18 Freq: Status: Active Protocol: Document 11/07/18 13:39 LP (Rec: 11/07/18 14:04 LP [id number]) Nutrition Notes Initial or Follow up Reassessment Current Diagnosis Acute Kidney Injury, Respiratory Failure Other Pertinent Diagnosis Encephalopathy Current Diet NPO Labs/Tests Reviewed Pertinent Medications Reviewed Height 5 ft 5 in Weight 69.7 kg [place] Body Weight (kg) 56.81 BMI 25.5 Subjective/Other Information Consult for TF. Pt continues on vent. Burn Absent Trauma Absent #1 Nutrition Diagnosis Inadequate oral intake Diagnosis Progress(for reassessment Continues documentation) Is patient on ventilator? Yes Is Patient Ambulatory and/or Out of Bed No REE-([place] Jeor-confined to bed) 1390.584 Calculation Used for Recommendations [place] Jeor Additional Notes Protein Needs: 84-139g (1.2-2g /kg) Fluid Needs: 1 ml/kcal Nutrition Intervention Change Diet Order: TF Nutrition Support: Promote at 55ml/hr Flush with 50ml q4h Kcal 1,320 Protein (gm) 83 Fluid (mL) 1,107 Goal #1 Meet at least 80% of kcal and protein needs Anticipated Discharge Needs: Unable to determine at this time Follow-Up By: 11/11/18 Additional Comments Follow for TF start/tolerance
[2018-11-08] MEDS ORDERED: NON-FORMULARY (Gabapentin [Neurontin] 800 MG) PO SCH (10:00)
[2018-11-08] MEDS ORDERED: NON-FORMULARY (Pravastatin Sodium [Pravastatin] 20 MG) PO SCH (10:00)
--- NOTE | 2018-11-08 10:06 | Progress Note ---
Assessment and Plan Cultures: 11/05/2018 blood culture: 2/4 bottles (both sets) with GPC in clusters 11/05/2018 urine culture: skin jama 11/05/2018 resp culture: oropharyngeal contamination. 11/07/2018 blood culture: negative so far. A/P: 82-year-old female with hypertension, heart disease, hyperlipidemia, neuropathy who has been living with her and was his primary caregiver and apparently had not been feeling well for the last 1 week, now admitted with AMS: 1) Sepsis: Fever on admission, lactic acidosis. No leukocytosis. Chest x-ray without evidence of pneumonia. UA with minimal pyuria, doubt UTI. Also with GPC bacteremia. 2) Lactic acidosis: Lactate improving. CT abdomen and pelvis without contrast showed no acute endings. 3) Acute encephalopathy: Neurology following. Question related to seizures. 4) BRAD v/s CKD: Renally dose antibiotics. 5) GPC bacteremia: 2/4 bottles (both sets) with GPC in clusters. TTE unremarkable for valvular vegetations. Continue empiric Vancomycin. F/U Repeat blood cultures. Recs: discontinued Cefepime continue IV vancomycin, renally adjusted Follow-up blood cultures for ID and sensitivity F/U brain MRI Tia Farah MD, FACP [facility] C: [phone] O: [phone] F: [phone] Subjective Date of service: 11/08/18 Principal diagnosis: Ac hypoxemic Resp Failure ; Possible Seizure; Ac. Met Encephalopathy; BRAD Interval history: No fever. Remains on the ventilator. Opening eyes, but not following commands. Son at bedside. Objective - Exam Narrative Exam: Physical Exam: Constitutional: opens eyes, doesn't follow commands, intubated Head, Ears, Nose: Normocephalic, atraumatic. External ears, nose normal Eyes: Conjunctivae/corneas clear. No icterus. No ptosis. Neck: Supple, no meningeal signs Oral: intubated Cardiovascular: S1, S2 normal. Respiratory: Good air entry, clear to auscultation bilaterally GI: Soft, non-tender; bowel sounds normal. No peritoneal signs Musculoskeletal: No pedal edema, no cyanosis. Skin: No rash or abscess Hem/Lymphatic: No palpable cervical or supraclavicular nodes. No lymphangitis Psych: calm, no agitation Neurological: opens eyes, doesn't follow commands, intubated, on vent - Constitutional Vitals: Vital Signs Temp Pulse Resp BP Pulse Ox 98.3 F 139 H 28 H 180/78 97 11/08/18 03:12 11/08/18 09:02 11/08/18 08:00 11/08/18 09:02 11/08/18 08:50 Temperature -Last 24 Hours Temperature 98.3 F Temperature 98.4 F Temperature 97.8 F - Labs CBC & Chem 7: 11/07/18 11:05 11/08/18 04:27 Labs: Abnormal lab results 11/07/18 11/07/18 11/08/18 Range/Units 11:05 15:48 04:27 WBC 4.1 L (4.5-11.0) K/mm3 RBC 3.62 L (3.65-5.03) M/mm3 Plt Count 77 L (140-440) K/mm3 Sodium 146 H (137-145) mmol/L Chloride 117.1 H (98-107) mmol/L Carbon Dioxide 18 L (22-30) mmol/L BUN 19 H (7-17) mg/dL Creatinine 1.6 H (0.7-1.2) mg/dL Glucose 111 H (65-100) mg/dL POC Glucose (70-105) C-Reactive Protein 3.50 H (0.00-1.30) mg/dL 11/08/18 Range/Units 05:29 WBC (4.5-11.0) K/mm3 RBC (3.65-5.03) M/mm3 Plt Count (140-440) K/mm3 Sodium (137-145) mmol/L Chloride (98-107) mmol/L Carbon Dioxide (22-30) mmol/L BUN (7-17) mg/dL Creatinine (0.7-1.2) mg/dL Glucose (65-100) mg/dL POC Glucose 108 H (70-105) C-Reactive Protein (0.00-1.30) mg/dL - Imaging and cardiology Chest x-ray: report reviewed, image reviewed (ET tube +, no clear evidence of pneumonia)
[2018-11-08] MEDS: PRAVACHOL PO SCH (11:06)
[2018-11-08] MEDS: REQUIP PO SCH ×3 (11:06→20:51)
[2018-11-08] MEDS: HumaLOG SUB-Q SCH ×4 (11:07→18:15)
[2018-11-08] MEDS ORDERED: NACL 0.9% 500 ML 500 ML ONE (12:11)
[2018-11-08] MEDS ORDERED: NACL 0.9% 1000 ML 500 ML IV ONE (12:25)
--- NOTE | 2018-11-08 12:26 | Progress Note ---
Assessment and Plan Acute Renal Failure likely secondary to ischemic ATN r/o obstruction: Hypokalemia: Hypernatremia: - stable kidney function, good UOP -Baseline serum creatinine unknown -Hypernatremia-free water, improving -renal US is negative for obstruction -Monitor I/O's -Avoid nephrotoxic agents -Obtain daily weights -Monitor renal function closely SIRS versus sepsis: -On empiric cefepime and vancomycin -Blood cultures-pending -ID onboard Acute encephalopathy: Possible Seizures -Neurology consulted Acute Hypoxic Respiratory Failure: -Intubated as per Pulmonary Subjective Date of service: 11/08/18 Principal diagnosis: Ac hypoxemic Resp Failure ; Possible Seizure; Ac. Met Encephalopathy; BRAD Interval history: intubated and sedated, family at bedside, all questions answered Objective - Vital Signs Vital signs: Vital Signs - 12hr 11/08/18 11/08/18 11/08/18 00:30 01:00 01:30 Temperature Pulse Rate 115 H 112 H 119 H Pulse Rate [ Apical] Respiratory 12 14 14 Rate Blood Pressure 160/55 160/55 162/57 O2 Sat by Pulse 95 97 97 Oximetry 11/08/18 11/08/18 11/08/18 02:00 02:30 03:00 Temperature Pulse Rate 114 H 117 H 112 H Pulse Rate [ Apical] Respiratory 19 22 15 Rate Blood Pressure 142/57 161/68 150/74 O2 Sat by Pulse 97 96 96 Oximetry 11/08/18 11/08/18 11/08/18 03:12 03:31 04:00 Temperature 98.3 F Pulse Rate 127 H 134 H Pulse Rate [ 126 H Apical] Respiratory 20 21 Rate Blood Pressure 183/77 202/89 O2 Sat by Pulse 92 98 Oximetry 11/08/18 11/08/18 11/08/18 04:01 04:31 04:53 Temperature Pulse Rate 124 H 130 H 103 H Pulse Rate [ Apical] Respiratory 17 23 Rate Blood Pressure 163/47 183/80 202/89 O2 Sat by Pulse 98 97 Oximetry 11/08/18 11/08/18 11/08/18 05:01 05:30 06:00 Temperature Pulse Rate 89 103 H 113 H Pulse Rate [ Apical] Respiratory 14 14 15 Rate Blood Pressure 84/29 122/41 158/60 O2 Sat by Pulse 97 97 97 Oximetry 11/08/18 11/08/18 11/08/18 06:30 07:00 07:30 Temperature Pulse Rate 132 H 139 H 138 H Pulse Rate [ Apical] Respiratory 19 24 27 H Rate Blood Pressure 193/80 212/75 193/72 O2 Sat by Pulse 98 97 94 Oximetry 11/08/18 11/08/18 11/08/18 08:00 08:30 08:50 Temperature Pulse Rate 141 H 136 H 121 H Pulse Rate [ Apical] Respiratory 26 H 26 H Rate Blood Pressure 182/75 169/71 160/57 O2 Sat by Pulse 94 94 97 Oximetry 11/08/18 11/08/18 11/08/18 09:00 09:02 09:31 Temperature Pulse Rate 137 H 139 H 124 H Pulse Rate [ Apical] Respiratory 22 22 Rate Blood Pressure 180/78 180/78 160/57 O2 Sat by Pulse 94 95 Oximetry 11/08/18 11/08/18 11/08/18 10:00 10:01 10:31 Temperature Pulse Rate 86 99 H 93 H Pulse Rate [ Apical] Respiratory 23 26 H Rate Blood Pressure 112/46 112/46 O2 Sat by Pulse 95 96 Oximetry 11/08/18 11/08/18 11:00 12:00 Temperature Pulse Rate 86 Pulse Rate [ Apical] Respiratory 24 21 Rate Blood Pressure 122/44 O2 Sat by Pulse 96 97 Oximetry - General Appearance General appearance: sedated on ventilator, intubated EENT: ATNC, PERRL Neck: no JVD, no carotid bruit Respiratory: Present: Rales, Decreased Breath Sounds Cardiology: regular, S1S2 Gastrointestinal: normoactive bowel sounds, no tenderness, no distended Integumentary: no rash, warm and dry, other (no edema in BLE) Neurologic: other (intubated) Musculoskeletal: other Psychiatric: other (intubated) - Lab 11/07/18 11:05 11/08/18 04:27 Most recent lab results Calcium 9.4 mg/dL (8.4-10.2) 11/08/18 04:27 Phosphorus 3.00 mg/dL (2.5-4.5) D 11/08/18 04:27 Magnesium 2.20 mg/dL (1.7-2.3) 11/05/18 16:31 155.8 mg/dL (0.1-20.0) H 11/06/18 Unknown 40 mmol/L 11/06/18 Unknown 68 mg/dL (5-11.8) H 11/06/18 Unknown Medications & Allergies - Medications Allergies/Adverse Reactions: Allergies aspirin Allergy (Verified 11/06/18 17:06) Unknown Home Medications: Home Medications Medication Instructions Recorded Confirmed Last Taken Type Brimonidine Tartrate [Brimonidine 2 drops OU QHS 11/06/18 11/06/18 Unknown History Tartrate 0.2%] Carvedilol [Coreg] 25 mg PO BID 11/06/18 11/06/18 Unknown History Furosemide [Lasix TAB] 20 mg PO HS 11/06/18 11/06/18 Unknown History Furosemide [Lasix TAB] 40 mg PO QAM 11/06/18 11/06/18 Unknown History Gabapentin [Neurontin] 800 mg PO BID 11/06/18 11/06/18 Unknown History Pravastatin Sodium [Pravastatin] 20 mg PO DAILY 11/06/18 11/06/18 Unknown History Ropinirole HCl [Requip] 1 mg PO TID 11/06/18 11/06/18 Unknown History Brimonidine Tartrate [Alphagan P 1 drop OU BID 11/08/18 11/08/18 Unknown History 0.1%] Active Medications: Generic Name Dose Route Start Last Admin Trade Name Freq PRN Reason Stop Dose Admin Albuterol 2.5 mg 11/05/18 17:52 Proventil IH Q3HRT PRN Shortness Of Breath Lipase/Protease/Amylase 1 each 11/07/18 11:07 Pancredoris Cruz 10,500 Unit FEEDTUBE PRN PRN For Clogged Feeding Tube Carvedilol 25 mg 11/08/18 10:00 11/08/18 09:02 Coreg PO 25 mg BID NIKKO Administration Dextrose 50 ml 11/05/18 17:59 D50w (25gm) Syringe IV PRN PRN Hypoglycemia Famotidine 20 mg 11/06/18 10:00 11/08/18 09:03 Pepcid IV 20 mg DAILY NIKKO Administration Fentanyl 50 mcg 11/05/18 16:21 11/08/18 04:48 Sublimaze IV 50 mcg Q10MIN PRN Administration ANALGESIA Gabapentin 800 mg 11/08/18 10:00 11/08/18 09:03 Neurontin PO 800 mg BID NIKKO Administration Heparin Sodium (Porcine) 5,000 unit 11/06/18 10:00 11/08/18 09:17 Heparin SUB-Q 5,000 unit Q12HR NIKKO Administration Hydralazine HCl 10 mg 11/05/18 21:30 11/08/18 04:53 Apresoline IV 10 mg Q6HR PRN Administration Hypertension Hydrophilic Ointment 1 applic 11/05/18 16:21 Vaseline Lip Therapy TP Q2HR PRN Dry Lips Fentanyl Citrate 2,000 mcg in 100 mls @ 3.485 mls/hr 11/05/18 17:00 11/07/18 07:00 Fentanyl Drip Premix IV 0 mcg/kg/hr TITR NIKKO 0 mls/hr Titration Protocol 1 MCG/KG/HR Lorazepam 100 mg/ Sodium 100 mls @ 1 mls/hr 11/05/18 17:00 11/07/18 08:23 Chloride/ Miscellaneous IV 0 mg/hr Information TITR NIKKO 0 mls/hr Titration Protocol 1 MG/HR Dextrose/Sodium Chloride 1,000 mls @ 75 mls/hr 11/06/18 09:00 11/08/18 07:20 D5/0.45ns IV 75 mls/hr DIRECT NIKKO Administration Cefepime HCl 1 gm in 100 mls @ 200 mls/hr 11/06/18 14:00 11/08/18 09:04 Maxipime/Ns 1 Gm/100 Ml IV 200 mls/hr Q12HR NIKKO Administration Protocol Vancomycin HCl 1 gm in 250 mls @ 166.667 mls/hr 11/06/18 22:00 11/07/18 21:13 Vancomycin/Ns 1 Gm/250 Ml IV 166.667 mls/hr Q24H NIKKO Administration Insulin Human Lispro 0 unit 11/06/18 12:00 11/08/18 11:07 Humalog SUB-Q Not Given Q6HR [facility] Protocol Lorazepam 2 mg 11/05/18 16:21 11/08/18 04:47 Ativan IV 2 mg Q10MIN PRN Administration Agitation Miscellaneous Medication 2 drops 11/08/18 22:00 Brimonidine Tartrate [Brimonidine Tartrate 0.2%] OU QHS NIKKO Multi-Ingred Cream/Lotion/Oil/Oint 1 applic 11/05/18 16:21 Artificial Tears Ophth Oint OU Q4HR PRN Dry Eye(s) Potassium Phos/Sodium Phos 2 each 11/07/18 18:00 11/08/18 06:15 Phos-Nak PO Not Given Q6HR NIKKO Pravastatin Sodium 20 mg 11/08/18 10:00 11/08/18 11:06 Pravachol PO 20 mg DAILY NIKKO Administration Ropinirole HCl 1 mg 11/08/18 09:00 11/08/18 11:06 Requip PO 1 mg TID NIKKO Administration Simple Syrup 15 ml 11/07/18 11:07 Simple Syrup FEEDTUBE PRN PRN Hypoglycemia Simple Syrup 30 ml 11/07/18 11:07 Simple Syrup FEEDTUBE PRN PRN Hypoglycemia Sodium Bicarbonate 325 mg 11/07/18 11:07 Sodium Bicarbonate FEEDTUBE PRN PRN For Clogged Feeding Tube Sodium Chloride 10 ml 11/05/18 22:00 11/08/18 09:05 Sodium Chloride Flush Syringe 10 Ml IV 10 ml BID NIKKO Administration Sodium Chloride 10 ml 11/05/18 17:52 Sodium Chloride Flush Syringe 10 Ml IV PRN PRN LINE FLUSH
--- NOTE | 2018-11-08 13:08 | Progress Note ---
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% (no vegetations) - EEG report pending - continue daily SAT's and SBT's as tolerated (ABG sub-optimal and AMS is rate limiting factor to safe extubation acutely)[rest on AC qhs] - discontinued mckoy catheter - continue bronchodilators with pulmonary hygiene per RT - continue antibiotics per ID rec's - continue enteral nutrition as tolerated - continue supplemental oxygen as needed to keep O2 sat's > 90% - continue lung protective strategies - daily CXR and ABG in short term - VAP bundle addressed - continue accuchecks with glycemic control per SSI for target blood glucose <180mg/dL - Agitation management - Titrate sedation to RASS 0 to -1 - Prevention of delirium, maintenance of sleep-wake cycle - Azotemia per nephrology; continue gentle hydration - Avoid nephrotoxic agents, adjust all antibiotics and medications for CrCL and GFR - VTE and Stress ulcer prophylaxis - continue other care per attending / other consultants .... careplan discussed at length with family at bedside ... re-evaluate in am & prn CONDITION: CRITICAL PROGNOSIS: GRAVE to GUARDED CODE STATUS: FULL CODE The high probability of a clinically significant, sudden or life-threatening deterioration of the [respiratory, cardiac and neurologic] system(s) required my full and direct attention, intervention and personal management. The aggregate critical care time was [34] minutes without overlap. Time includes spent on; [x] Data Review and interpretation [x] Patient assessment and monitoring of vital signs [x] Documentation [x] Medication orders and management Subjective Date of service: 11/08/18 Principal diagnosis: Ac hypoxemic Resp Failure ; Possible Seizure; Ac. Met Encephalopathy; BRAD Interval history: Patient is seen today for: Acute Respiratory Failure with Hypoxemia; Gram positive bacteremia (in clusters); Possible Seizure; Lactic Acidosis; Hypernatermia; Acute Metabolic Encephalopathy; BRAD possible secondary to Ischemic ATN Seen and examined at bedside; 24hour events reviewed; nursing and respiratory care staff consulted; no adverse overnight events reported to me; resting peacefully in bed; AMS is persistent; daughter and daughter in law visiting; No emesis or overt aspiration; no reported seizures; BP's running low post Coreg administration Objective Vital Signs - 12hr 11/08/18 11/08/18 11/08/18 01:00 01:30 02:00 Temperature Pulse Rate 112 H 119 H 114 H Pulse Rate [ Apical] Respiratory 14 14 19 Rate Blood Pressure 160/55 162/57 142/57 O2 Sat by Pulse 97 97 97 Oximetry 11/08/18 11/08/18 11/08/18 02:30 03:00 03:12 Temperature 98.3 F Pulse Rate 117 H 112 H Pulse Rate [ Apical] Respiratory 22 15 Rate Blood Pressure 161/68 150/74 O2 Sat by Pulse 96 96 Oximetry 11/08/18 11/08/18 11/08/18 03:31 04:00 04:01 Temperature Pulse Rate 127 H 134 H 124 H Pulse Rate [ 126 H Apical] Respiratory 20 21 17 Rate Blood Pressure 183/77 202/89 163/47 O2 Sat by Pulse 92 98 98 Oximetry 11/08/18 11/08/18 11/08/18 04:31 04:53 05:01 Temperature Pulse Rate 130 H 103 H 89 Pulse Rate [ Apical] Respiratory 23 14 Rate Blood Pressure 183/80 202/89 84/29 O2 Sat by Pulse 97 97 Oximetry 11/08/18 11/08/18 11/08/18 05:30 06:00 06:30 Temperature Pulse Rate 103 H 113 H 132 H Pulse Rate [ Apical] Respiratory 14 15 19 Rate Blood Pressure 122/41 158/60 193/80 O2 Sat by Pulse 97 97 98 Oximetry 11/08/18 11/08/18 11/08/18 07:00 07:30 08:00 Temperature Pulse Rate 139 H 138 H 141 H Pulse Rate [ Apical] Respiratory 24 27 H 26 H Rate Blood Pressure 212/75 193/72 182/75 O2 Sat by Pulse 97 94 94 Oximetry 11/08/18 11/08/18 11/08/18 08:30 08:50 09:00 Temperature Pulse Rate 136 H 121 H 137 H Pulse Rate [ Apical] Respiratory 26 H 22 Rate Blood Pressure 169/71 160/57 180/78 O2 Sat by Pulse 94 97 94 Oximetry 11/08/18 11/08/18 11/08/18 09:02 09:31 10:00 Temperature Pulse Rate 139 H 124 H 86 Pulse Rate [ Apical] Respiratory 22 Rate Blood Pressure 180/78 160/57 O2 Sat by Pulse 95 Oximetry 11/08/18 11/08/18 11/08/18 10:01 10:31 11:00 Temperature Pulse Rate 99 H 93 H 86 Pulse Rate [ Apical] Respiratory 23 26 H 24 Rate Blood Pressure 112/46 112/46 122/44 O2 Sat by Pulse 95 96 96 Oximetry 11/08/18 12:00 Temperature Pulse Rate Pulse Rate [ Apical] Respiratory 21 Rate Blood Pressure O2 Sat by Pulse 97 Oximetry Constitutional: appears uncomfortable, other (elderly looking CF, normocephalic and astraumatic with mildly increased respiratory effort on MVS) Eyes: non-icteric ENT: oropharynx moist, other (ETT 23 cm JORDAN) Neck: supple, no lymphadenopathy, no JVD, other (no thyromegaly) Effort: mildly labored Ascultation: Bilateral: diminished breath sounds, rhonchi (bases) Percussion: Bilateral: not dull Cardiovascular: regular rate and rhythm, murmur noted (systolic) Gastrointestinal: normoactive bowel sounds, soft, non-tender, non-distended Integumentary: normal Extremities: no cyanosis, no edema, pink and warm, pulses normal, no ischemia or petechiae Neurologic: non-focal exam (grossly), pupils equal and round, CN II-XII normal, unable to assess Psychiatric: other (unable to assess re: AMS) CBC and BMP: 11/07/18 11:05 11/08/18 04:27 ABG, PT/INR, D-dimer: ABG POC ABG pH 7.357 (7.35-7.45) 11/08/18 12:27 POC ABG pCO2 33.4 (35-45) L 11/08/18 12:27 POC ABG pO2 78 (80-105) L 11/08/18 12:27 POC ABG HCO3 18.7 (22-26 mml/L) 11/08/18 12:27 POC ABG Total CO2 20 (23-27mmol/L) 11/08/18 12:27 POC ABG O2 Sat 95 11/08/18 12:27 Abnormal lab findings: Abnormal Labs 11/05/18 11/05/18 11/05/18 16:31 16:31 16:31 WBC RBC Plt Count 139 L [place] % (Auto) Lymph # 0.7 L Seg Neutrophils % 78.8 H POC ABG pH POC ABG pCO2 POC ABG pO2 Sodium 148 H Potassium 3.2 L Chloride 110.6 H Carbon Dioxide 17 L BUN 18 H Creatinine 1.9 H Glucose 205 H POC Glucose Lactic Acid 8.20 H* Calcium 10.9 H Phosphorus Total Creatine Kinase C-Reactive Protein Total Protein Albumin 3.6 L Urine WBC (Auto) Urine Creatinine Urine Total Protein Salicylates Acetaminophen 11/05/18 11/05/18 11/05/18 16:31 16:31 16:31 WBC RBC Plt Count [place] % (Auto) Lymph # Seg Neutrophils % POC ABG pH POC ABG pCO2 POC ABG pO2 Sodium Potassium Chloride Carbon Dioxide BUN Creatinine Glucose POC Glucose Lactic Acid Calcium Phosphorus Total Creatine Kinase < 7 L C-Reactive Protein Total Protein Albumin Urine WBC (Auto) Urine Creatinine Urine Total Protein Salicylates < 0.3 L Acetaminophen < 5.0 L 11/05/18 11/05/18 11/05/18 17:29 17:42 20:47 WBC RBC Plt Count [place] % (Auto) Lymph # Seg Neutrophils % POC ABG pH POC ABG pCO2 33.4 L POC ABG pO2 136 H Sodium Potassium Chloride Carbon Dioxide BUN Creatinine Glucose POC Glucose Lactic Acid 3.30 H* Calcium Phosphorus Total Creatine Kinase C-Reactive Protein Total Protein Albumin Urine WBC (Auto) 19.0 H Urine Creatinine Urine Total Protein Salicylates Acetaminophen 11/05/18 11/05/18 11/06/18 20:47 22:42 04:09 WBC 4.4 L RBC Plt Count 102 L [place] % (Auto) 13.2 H Lymph # 1.0 L Seg Neutrophils % POC ABG pH POC ABG pCO2 POC ABG pO2 Sodium Potassium Chloride Carbon Dioxide BUN Creatinine Glucose POC Glucose 121 H Lactic Acid Calcium Phosphorus Total Creatine Kinase C-Reactive Protein Total Protein Albumin Urine WBC (Auto) Urine Creatinine 166.9 H Urine Total Protein Salicylates Acetaminophen 11/06/18 11/06/18 11/06/18 04:09 05:05 07:31 WBC RBC Plt Count [place] % (Auto) Lymph # Seg Neutrophils % POC ABG pH 7.509 H POC ABG pCO2 < 30 L POC ABG pO2 115 H Sodium 150 H Potassium 2.7 L* Chloride 118.2 H Carbon Dioxide 21 L BUN 21 H Creatinine 1.6 H Glucose 125 H POC Glucose Lactic Acid 2.50 H* Calcium Phosphorus Total Creatine Kinase C-Reactive Protein Total Protein 5.7 L Albumin 3.1 L Urine WBC (Auto) Urine Creatinine Urine Total Protein Salicylates Acetaminophen 11/06/18 11/06/18 11/06/18 12:04 16:21 18:04 WBC RBC Plt Count [place] % (Auto) Lymph # Seg Neutrophils % POC ABG pH POC ABG pCO2 POC ABG pO2 Sodium Potassium 5.4 H D Chloride Carbon Dioxide BUN Creatinine Glucose POC Glucose 122 H 110 H Lactic Acid Calcium Phosphorus Total Creatine Kinase C-Reactive Protein Total Protein Albumin Urine WBC (Auto) Urine Creatinine Urine Total Protein Salicylates Acetaminophen 11/06/18 11/06/18 11/07/18 21:28 Unknown 04:02 WBC RBC Plt Count [place] % (Auto) Lymph # Seg Neutrophils % POC ABG pH POC ABG pCO2 POC ABG pO2 Sodium 152 H Potassium Chloride 123.4 H Carbon Dioxide 20 L BUN 23 H Creatinine 1.5 H Glucose 111 H POC Glucose 125 H Lactic Acid Calcium Phosphorus 1.00 L Total Creatine Kinase C-Reactive Protein Total Protein Albumin Urine WBC (Auto) Urine Creatinine 155.8 H Urine Total Protein 68 H Salicylates Acetaminophen 11/07/18 11/07/18 11/07/18 09:07 11:05 15:48 WBC 4.1 L RBC 3.62 L Plt Count 77 L [place] % (Auto) Lymph # Seg Neutrophils % POC ABG pH 7.314 L POC ABG pCO2 POC ABG pO2 Sodium Potassium Chloride Carbon Dioxide BUN Creatinine Glucose POC Glucose Lactic Acid Calcium Phosphorus Total Creatine Kinase C-Reactive Protein 3.50 H Total Protein Albumin Urine WBC (Auto) Urine Creatinine Urine Total Protein Salicylates Acetaminophen 11/08/18 11/08/18 11/08/18 04:27 05:29 12:27 WBC RBC Plt Count [place] % (Auto) Lymph # Seg Neutrophils % POC ABG pH POC ABG pCO2 33.4 L POC ABG pO2 78 L Sodium 146 H Potassium Chloride 117.1 H Carbon Dioxide 18 L BUN 19 H Creatinine 1.6 H Glucose 111 H POC Glucose 108 H Lactic Acid Calcium Phosphorus Total Creatine Kinase C-Reactive Protein Total Protein Albumin Urine WBC (Auto) Urine Creatinine Urine Total Protein Salicylates Acetaminophen 11/08/18 12:27 WBC RBC Plt Count [place] % (Auto) Lymph # Seg Neutrophils % POC ABG pH POC ABG pCO2 POC ABG pO2 Sodium Potassium Chloride Carbon Dioxide BUN Creatinine Glucose POC Glucose 188 H Lactic Acid Calcium Phosphorus Total Creatine Kinase C-Reactive Protein Total Protein Albumin Urine WBC (Auto) Urine Creatinine Urine Total Protein Salicylates Acetaminophen Allied health notes reviewed: nursing
--- NOTE | 2018-11-08 14:39 | Magnetic Resonance Report ---
MRI BRAIN 11/08/2018 INDICATION / CLINICAL INFORMATION: seizure. TECHNIQUE: Multiplanar, multisequence MR images of the brain were obtained. COMPARISON: None available. FINDINGS: BRAIN / INTRACRANIAL CONTENTS: Unenhanced MR images of the brain demonstrate no evidence of acute int racranial abnormality. Ventricles and sulci are normal in size and shape for a patient of this age. Moderate chronic white matter T2 weighted hyperintensities are present in the cerebral hemispheric wh ite matter, consistent with chronic small vessel ischemic change. There is no evidence of acute ischemic injury, hemorrhage, or mass. There are no abnormal extra-axial fluid collections. EXTRACRANIAL: Prominent mucosal thickening and opacification involves the right maxillary and sphenoi d sinuses, as well as most of the ethmoid sinuses. CRANIOCERVICAL JUNCTION: No significant abnormality. VASCULAR FLOW-VOIDS: No significant abnormality. IMPRESSION: No acute abnormality. Chronic and age-related changes. Signer Name: Khang Yung MD Signed: 11/08/2018 2:34 PM Workstation Name: [id number]
[2018-11-08] MEDS ORDERED: NACL 0.9% 1000 ML 1,000 ML IV NR (16:18)
[2018-11-08] MEDS ORDERED: ALBURX 25% (ALBUMIN) IV NR (16:24)
[2018-11-08] MEDS: LATANOPROST 0.005% OU SCH (17:22)
[2018-11-08] MEDS ORDERED: BRIMONIDINE TARTRATE OU SCH (22:00)
[2018-11-08] MEDS: VANCOMYCIN/NS 1 GM/250 ML 1 GM/250 ML BAG IV SCH (22:40)
[2018-11-08] MEDS: BRIMONIDINE OP SCH (22:42)
--- NOTE | 2018-11-09 03:12 | XRay Report ---
CHEST 1 VIEW INDICATION / CLINICAL INFORMATION: follow up respiratory failure. COMPARISON: 11/08/2018 FINDINGS: SUPPORT DEVICES: Stable, satisfactory device positioning. HEART / MEDIASTINUM: No significant abnormality. LUNGS / PLEURA: Pleural-parenchymal opacity in the left lower hemithorax is unchanged No pneumothorax . ADDITIONAL FINDINGS: No significant additional findings. IMPRESSION: 1. No change in left basilar opacity. Signer Name: Jimbo Mehta MD Signed: 11/09/2018 3:08 AM Workstation Name: [id number]
[2018-11-09 04:33] LABS: Hematocrit 26.9 % (30.3-42.9); Hemoglobin 8.8 gm/dl (10.1-14.3); Mean Corpuscular HGB Conc 33 % (30-34); Mean Corpuscular Volume 90 fl (79-97); Red Blood Count 2.99 M/mm3 (3.65-5.03); Red Cell Distribution Width 14.3 % (13.2-15.2)
[2018-11-09] MEDS: HumaLOG SUB-Q SCH ×4 (04:37→18:25)
[2018-11-09 04:42] LABS: Platelet Count 81 K/mm3 (140-440)
[2018-11-09 04:51] LABS: Calcium 8.2 mg/dL (8.4-10.2)
[2018-11-09] MEDS: PHOS-NAK PO SCH ×5 (05:28→23:30)
[2018-11-09] MEDS: D5/0.45NS 1,000 ML IV SCH (05:28)
--- NOTE | 2018-11-09 06:55 | Progress Note ---
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% (no vegetations) - EEG report reviewed- no seizure activity, no eveidence of anoxia - continue daily SAT's and SBT's as tolerated (AMS is rate limiting factor to safe extubation acutely) - continue bronchodilators with pulmonary hygiene per RT - continue antibiotics per ID rec's - continue enteral nutrition as tolerated - continue supplemental oxygen as needed to keep O2 sat's > 90% - continue lung protective strategies - daily CXR and ABG in short term - VAP bundle addressed - continue accuchecks with glycemic control per SSI for target blood glucose <180mg/dL - Titrate sedation to RASS 0 to -1 - Prevention of delirium, maintenance of sleep-wake cycle - Azotemia per nephrology; continue gentle hydration - Avoid nephrotoxic agents, adjust all antibiotics and medications for CrCL and GFR - VTE and Stress ulcer prophylaxis - continue other care per attending / other consultants -Follow up HIT panel .... care plan discussed at daughter at the bedside. She expressed concern that her mother may have a meningioma. I discussed the MRI report with her and had her read the report per Radiology Discussed care plan with RT/RN at the bedside CONDITION: CRITICAL PROGNOSIS: GUARDED CODE STATUS: FULL CODE The high probability of a clinically significant, sudden or life-threatening deterioration of the [respiratory,renal , hematology and neurologic] system(s) required my full and direct attention, intervention and personal management. The aggregate critical care time was [35] minutes without overlap. Time includes spent on; [x] Data Review and interpretation [x] Patient assessment and monitoring of vital signs [x] Documentation [x] Medication orders and management Subjective Date of service: 11/09/18 Principal diagnosis: Ac hypoxemic Resp Failure ; Possible Seizure; Ac. Met Encephalopathy; BRAD Interval history: Patient is seen today for: Acute Respiratory Failure with Hypoxemia; Gram positive bacteremia (in clusters); Possible Seizure; Lactic Acidosis; Hypernatermia; Acute Metabolic Encephalopathy; BRAD possible secondary to Ischemic ATN Seen and examined at bedside; 24hour events reviewed; nursing and respiratory care staff consulted; no adverse overnight events reported to me; resting peacefully in bed; AMS is persistent, but opens eyes ; daughter and grand- daughter visiting; No emesis or overt aspiration; no reported seizures; remains on mechanical ventilatory support Vitals, labs, medications, chart reviewed. Discussed with RN and RT. Tolerating PSV with adequate tidal volumes, but mental status precludes extubation Objective Vital Signs - 12hr 11/08/18 11/08/18 11/08/18 19:00 19:30 20:00 Temperature 97.7 F Pulse Rate 72 71 74 Pulse Rate [ 72 Apical] Respiratory 16 17 14 Rate Blood Pressure 114/45 117/48 128/50 O2 Sat by Pulse 100 100 97 Oximetry 11/08/18 11/08/18 11/08/18 20:13 20:30 20:36 Temperature Pulse Rate 72 70 69 Pulse Rate [ Apical] Respiratory 13 Rate Blood Pressure 128/50 123/48 O2 Sat by Pulse 97 99 Oximetry 11/08/18 11/08/18 11/08/18 21:00 21:30 22:00 Temperature Pulse Rate 70 70 67 Pulse Rate [ Apical] Respiratory 14 13 14 Rate Blood Pressure 120/47 124/45 107/39 O2 Sat by Pulse 99 99 99 Oximetry 11/08/18 11/08/18 11/08/18 22:27 22:30 22:58 Temperature Pulse Rate 65 64 67 Pulse Rate [ Apical] Respiratory 14 14 Rate Blood Pressure 107/38 105/39 105/39 O2 Sat by Pulse 99 100 Oximetry 11/08/18 11/08/18 11/08/18 23:00 23:11 23:30 Temperature 98.8 F Pulse Rate 67 67 Pulse Rate [ Apical] Respiratory 14 14 Rate Blood Pressure 105/39 119/44 O2 Sat by Pulse 100 99 Oximetry 11/09/18 11/09/18 11/09/18 00:00 00:30 00:36 Temperature Pulse Rate 63 66 65 Pulse Rate [ 72 Apical] Respiratory 14 14 Rate Blood Pressure 101/39 110/42 O2 Sat by Pulse 98 98 Oximetry 11/09/18 11/09/18 11/09/18 01:00 01:30 02:00 Temperature Pulse Rate 64 61 64 Pulse Rate [ Apical] Respiratory 14 14 13 Rate Blood Pressure 110/42 93/37 106/46 O2 Sat by Pulse 99 98 98 Oximetry 11/09/18 11/09/18 11/09/18 02:30 03:00 03:08 Temperature 98.5 F Pulse Rate 63 66 Pulse Rate [ Apical] Respiratory 14 14 Rate Blood Pressure 101/40 108/44 O2 Sat by Pulse 99 99 Oximetry 11/09/18 11/09/18 11/09/18 03:25 03:30 04:00 Temperature Pulse Rate 66 65 65 Pulse Rate [ 65 Apical] Respiratory 14 14 Rate Blood Pressure 108/44 115/46 103/41 O2 Sat by Pulse 100 100 100 Oximetry 11/09/18 11/09/18 11/09/18 04:30 05:00 05:30 Temperature Pulse Rate 66 63 62 Pulse Rate [ Apical] Respiratory 14 14 14 Rate Blood Pressure 114/45 96/37 101/38 O2 Sat by Pulse 100 100 100 Oximetry 11/09/18 11/09/18 06:00 06:31 Temperature Pulse Rate 73 70 Pulse Rate [ Apical] Respiratory 14 17 Rate Blood Pressure 101/38 115/47 O2 Sat by Pulse 100 100 Oximetry Constitutional: no acute distress, other (ETT to [facility], spontanesu eye openng, but not tracking) Eyes: non-icteric ENT: oropharynx moist, other (ETT 23 cm JORDAN) Neck: supple, no lymphadenopathy, no JVD, other (no thyromegaly) Effort: normal Ascultation: Bilateral: diminished breath sounds, rhonchi (bases) Percussion: Bilateral: not dull Cardiovascular: regular rate and rhythm, murmur noted (systolic), other (S1,S2, nno murmurs, gallops or rubs) Gastrointestinal: normoactive bowel sounds, soft, non-tender, non-distended Integumentary: normal, other (bilateral upper extremity edema) Extremities: no cyanosis, no edema, pink and warm, pulses normal, no ischemia or petechiae Neurologic: non-focal exam (grossly), pupils equal and round, unable to assess, other (spontaneous eye opening but not tracking) Psychiatric: other (unable to assess re: AMS) CBC and BMP: 11/10/18 09:52 11/10/18 09:52 ABG, PT/INR, D-dimer: ABG POC ABG pH 7.329 (7.35-7.45) L 11/09/18 03:32 POC ABG pCO2 35.3 (35-45) 11/09/18 03:32 POC ABG pO2 103 (80-105) 11/09/18 03:32 POC ABG HCO3 18.6 (22-26 mml/L) 11/09/18 03:32 POC ABG Total CO2 20 (23-27mmol/L) 11/09/18 03:32 POC ABG O2 Sat 98 11/09/18 03:32 Abnormal lab findings: Abnormal Labs 11/05/18 11/05/18 11/05/18 16:31 16:31 16:31 WBC RBC Hgb Hct Plt Count 139 L [place] % (Auto) Lymph # 0.7 L Seg Neutrophils % 78.8 H POC ABG pH POC ABG pCO2 POC ABG pO2 Sodium 148 H Potassium 3.2 L Chloride 110.6 H Carbon Dioxide 17 L BUN 18 H Creatinine 1.9 H Glucose 205 H POC Glucose Lactic Acid 8.20 H* Calcium 10.9 H Phosphorus Total Creatine Kinase C-Reactive Protein Total Protein Albumin 3.6 L Urine WBC (Auto) Urine Creatinine Urine Total Protein Salicylates Acetaminophen 11/05/18 11/05/18 11/05/18 16:31 16:31 16:31 WBC RBC Hgb Hct Plt Count [place] % (Auto) Lymph # Seg Neutrophils % POC ABG pH POC ABG pCO2 POC ABG pO2 Sodium Potassium Chloride Carbon Dioxide BUN Creatinine Glucose POC Glucose Lactic Acid Calcium Phosphorus Total Creatine Kinase < 7 L C-Reactive Protein Total Protein Albumin Urine WBC (Auto) Urine Creatinine Urine Total Protein Salicylates < 0.3 L Acetaminophen < 5.0 L 11/05/18 11/05/18 11/05/18 17:29 17:42 20:47 WBC RBC Hgb Hct Plt Count [place] % (Auto) Lymph # Seg Neutrophils % POC ABG pH POC ABG pCO2 33.4 L POC ABG pO2 136 H Sodium Potassium Chloride Carbon Dioxide BUN Creatinine Glucose POC Glucose Lactic Acid 3.30 H* Calcium Phosphorus Total Creatine Kinase C-Reactive Protein Total Protein Albumin Urine WBC (Auto) 19.0 H Urine Creatinine Urine Total Protein Salicylates Acetaminophen 11/05/18 11/05/18 11/06/18 20:47 22:42 04:09 WBC 4.4 L RBC Hgb Hct Plt Count 102 L [place] % (Auto) 13.2 H Lymph # 1.0 L Seg Neutrophils % POC ABG pH POC ABG pCO2 POC ABG pO2 Sodium Potassium Chloride Carbon Dioxide BUN Creatinine Glucose POC Glucose 121 H Lactic Acid Calcium Phosphorus Total Creatine Kinase C-Reactive Protein Total Protein Albumin Urine WBC (Auto) Urine Creatinine 166.9 H Urine Total Protein Salicylates Acetaminophen 11/06/18 11/06/18 11/06/18 04:09 05:05 07:31 WBC RBC Hgb Hct Plt Count [place] % (Auto) Lymph # Seg Neutrophils % POC ABG pH 7.509 H POC ABG pCO2 < 30 L POC ABG pO2 115 H Sodium 150 H Potassium 2.7 L* Chloride 118.2 H Carbon Dioxide 21 L BUN 21 H Creatinine 1.6 H Glucose 125 H POC Glucose Lactic Acid 2.50 H* Calcium Phosphorus Total Creatine Kinase C-Reactive Protein Total Protein 5.7 L Albumin 3.1 L Urine WBC (Auto) Urine Creatinine Urine Total Protein Salicylates Acetaminophen 11/06/18 11/06/18 11/06/18 12:04 16:21 18:04 WBC RBC Hgb Hct Plt Count [place] % (Auto) Lymph # Seg Neutrophils % POC ABG pH POC ABG pCO2 POC ABG pO2 Sodium Potassium 5.4 H D Chloride Carbon Dioxide BUN Creatinine Glucose POC Glucose 122 H 110 H Lactic Acid Calcium Phosphorus Total Creatine Kinase C-Reactive Protein Total Protein Albumin Urine WBC (Auto) Urine Creatinine Urine Total Protein Salicylates Acetaminophen 11/06/18 11/06/18 11/07/18 21:28 Unknown 04:02 WBC RBC Hgb Hct Plt Count [place] % (Auto) Lymph # Seg Neutrophils % POC ABG pH POC ABG pCO2 POC ABG pO2 Sodium 152 H Potassium Chloride 123.4 H Carbon Dioxide 20 L BUN 23 H Creatinine 1.5 H Glucose 111 H POC Glucose 125 H Lactic Acid Calcium Phosphorus 1.00 L Total Creatine Kinase C-Reactive Protein Total Protein Albumin Urine WBC (Auto) Urine Creatinine 155.8 H Urine Total Protein 68 H Salicylates Acetaminophen 11/07/18 11/07/18 11/07/18 09:07 11:05 15:48 WBC 4.1 L RBC 3.62 L Hgb Hct Plt Count 77 L [place] % (Auto) Lymph # Seg Neutrophils % POC ABG pH 7.314 L POC ABG pCO2 POC ABG pO2 Sodium Potassium Chloride Carbon Dioxide BUN Creatinine Glucose POC Glucose Lactic Acid Calcium Phosphorus Total Creatine Kinase C-Reactive Protein 3.50 H Total Protein Albumin Urine WBC (Auto) Urine Creatinine Urine Total Protein Salicylates Acetaminophen 11/08/18 11/08/18 11/08/18 04:27 05:29 12:27 WBC RBC Hgb Hct Plt Count [place] % (Auto) Lymph # Seg Neutrophils % POC ABG pH POC ABG pCO2 33.4 L POC ABG pO2 78 L Sodium 146 H Potassium Chloride 117.1 H Carbon Dioxide 18 L BUN 19 H Creatinine 1.6 H Glucose 111 H POC Glucose 108 H Lactic Acid Calcium Phosphorus Total Creatine Kinase C-Reactive Protein Total Protein Albumin Urine WBC (Auto) Urine Creatinine Urine Total Protein Salicylates Acetaminophen 11/08/18 11/08/18 11/08/18 12:27 18:11 23:50 WBC RBC Hgb Hct Plt Count [place] % (Auto) Lymph # Seg Neutrophils % POC ABG pH POC ABG pCO2 POC ABG pO2 Sodium Potassium Chloride Carbon Dioxide BUN Creatinine Glucose POC Glucose 188 H 126 H 149 H Lactic Acid Calcium Phosphorus Total Creatine Kinase C-Reactive Protein Total Protein Albumin Urine WBC (Auto) Urine Creatinine Urine Total Protein Salicylates Acetaminophen 11/09/18 11/09/18 11/09/18 03:32 04:12 04:12 WBC 3.6 L RBC 2.99 L Hgb 8.8 L Hct 26.9 L Plt Count 81 L [place] % (Auto) Lymph # Seg Neutrophils % POC ABG pH 7.329 L POC ABG pCO2 POC ABG pO2 Sodium Potassium Chloride 114.8 H Carbon Dioxide 20 L BUN 28 H Creatinine 1.9 H Glucose 144 H POC Glucose Lactic Acid Calcium 8.2 L Phosphorus Total Creatine Kinase C-Reactive Protein Total Protein Albumin Urine WBC (Auto) Urine Creatinine Urine Total Protein Salicylates Acetaminophen 11/09/18 05:24 WBC RBC Hgb Hct Plt Count [place] % (Auto) Lymph # Seg Neutrophils % POC ABG pH POC ABG pCO2 POC ABG pO2 Sodium Potassium Chloride Carbon Dioxide BUN Creatinine Glucose POC Glucose 163 H Lactic Acid Calcium Phosphorus Total Creatine Kinase C-Reactive Protein Total Protein Albumin Urine WBC (Auto) Urine Creatinine Urine Total Protein Salicylates Acetaminophen Chest x-ray: image reviewed Allied health notes reviewed: RT (SBTs daily)
[2018-11-09] MEDS: COREG PO SCH ×3 (09:18→22:32)
[2018-11-09] MEDS: PEPCID IV SCH (09:18)
[2018-11-09] MEDS: NEURONTIN PO SCH ×2 (09:18→22:32)
[2018-11-09] MEDS: MAXIPIME/NS 1 GM/100 ML 1 GM/100 ML BAG IV SCH ×2 (09:19→22:29)
[2018-11-09] MEDS: SODIUM CHLORIDE FLUSH SYRINGE 10 ML IV SCH ×2 (09:19→22:27)
[2018-11-09] MEDS: PRAVACHOL PO SCH (09:19)
[2018-11-09] MEDS: REQUIP PO SCH ×3 (09:20→20:44)
[2018-11-09] MEDS: BRIMONIDINE OP SCH ×2 (09:37→22:28)
--- NOTE | 2018-11-09 10:51 | Progress Note ---
Assessment and Plan Assessment and plan: 82 YO Female presented to then ED after the patient was found down and unresponsive and reports seizure like activity. On EMS arrival patient was noted to have a GCS of 3 and was placed on oxygen mask and intubated in the ED on arrival. Initial Temp was noted as 102.2 In the ED patient was intubated due to AMS and Acute Hypoxemic Respiratory Failure, and is unable to protect her airway, Teleneurology consulted in ED. Pt deemed not a candidate for TPA. No prior admission for review. CXR: worsening left lobar infiltrate Renal us: Small left renal cyst, negative for obstruction or mass MRI Head: negative for acute pathology SIRS/Sepsis: Presumed Left Lobar Pneumonia: Continue Abx, ID following. Cultures remain with no growth at this time. Hypertensive Urgency: Resume Coreg, Hydralazin Acute Respiratory Failure with Hypoxia Possible Seizure: Lactic Acidosis: Hypernatermia: Continue free water Acute Metabolic Encephalopathy: Thrombocytopena BRAD possible secondary to Ischemic ATN: . Nephrology following. Patient on HF management at home. Will discuss resuming Lasix PLAN: Continue supportive care Renal function slightly worse, ?secondary to transient hypotension vs Vancomycin, through level within normal limit. Continue to monitor still awaiting EEG report from Neurology, will contact again today Cultures are negative so far VAP bundle Vent management per Scleroscope Tester Replace electrolytes, sodium BETTER The patient son informs me the patient has been very lethargic for a few weeks now and has been mostly in bed. She is the primary care fiver for her who is battling metastatic disease Spoke to family at bedside DVT Prophy with SCD considering low plt The high probability of a clinically significant, sudden or life threatening deterioration of the [Neuro, cardiac, respiratory, renal] system(s) required my full and direct attention, intervention and personal management. The aggregate critical care time was [35] minutes. This time is in addition to time spent performing reported procedures but includes the following: [x] Data Review and interpretation [x] Patient assessment and monitoring of vital signs [x] Documentation [x] Medication orders and management History Interval history: Patient seen and examined, remains on full ventilatory support. slowly showing some improvement by moving in response to name, but not quite opening her eyes, BP mildly elevated but now improve Hospitalist Physical - Physical exam Narrative exam: VITAL SIGNS: Reviewed. GENERAL: intubated and on mechanical ventilation, Vital signs as documented. HEAD: No signs of head trauma. EYES: Pupils are equal. EARS: unable to assess MOUTH: ETT oinplace NECK: No adenopathy, no JVD. CHEST: Chest with diminshed breath sounds bilaterally. No wheezes, rales, or rhonchi. CARDIAC: Regular rate and rhythm. S1 and S2, without murmurs, gallops, or rubs. VASCULAR: No Edema. Peripheral pulses normal and equal in all extremities. ABDOMEN: Soft, non tender and non distended. No rebound or guarding, and no masses palpated. Bowel Sounds normal. MUSCULOSKELETAL: unable to examine, bilateral upper ext non pitting edema NEUROLOGIC EXAM: Intubated and sedated PSYCHIATRIC: Mood normal. SKIN: No rash or lesions. - Constitutional Vitals: Temp Pulse Resp BP Pulse Ox 98.4 F 75 14 143/58 100 11/09/18 08:00 11/09/18 09:31 11/09/18 09:31 11/09/18 09:31 11/09/18 09:31 General appearance: Present: severe distress Results - Labs CBC & Chem 7: 11/09/18 04:12 11/09/18 04:12 Labs: Laboratory Last Values WBC 3.6 K/mm3 (4.5-11.0) L 11/09/18 04:12 RBC 2.99 M/mm3 (3.65-5.03) L 11/09/18 04:12 Hgb 8.8 gm/dl (10.1-14.3) L 11/09/18 04:12 Hct 26.9 % (30.3-42.9) L 11/09/18 04:12 MCV 90 fl (79-97) 11/09/18 04:12 MCH 30 pg (28-32) 11/09/18 04:12 MCHC 33 % (30-34) 11/09/18 04:12 RDW 14.3 % (13.2-15.2) 11/09/18 04:12 Plt Count 81 K/mm3 (140-440) L 11/09/18 04:12 Lymph % (Auto) 23.8 % (13.4-35.0) 11/06/18 04:09 [place] % (Auto) 13.2 % (0.0-7.3) H 11/06/18 04:09 Eos % (Auto) 0.0 % (0.0-4.3) 11/06/18 04:09 Baso % (Auto) 0.3 % (0.0-1.8) 11/06/18 04:09 Lymph # 1.0 K/mm3 (1.2-5.4) L 11/06/18 04:09 [place] # 0.6 K/mm3 (0.0-0.8) 11/06/18 04:09 Eos # 0.0 K/mm3 (0.0-0.4) 11/06/18 04:09 Baso # 0.0 K/mm3 (0.0-0.1) 11/06/18 04:09 Seg Neutrophils % 62.7 % (40.0-70.0) 11/06/18 04:09 Seg Neutrophils # 2.7 K/mm3 (1.8-7.7) 11/06/18 04:09 POC ABG pH 7.329 (7.35-7.45) L 11/09/18 03:32 POC ABG pCO2 35.3 (35-45) 11/09/18 03:32 POC ABG pO2 103 (80-105) 11/09/18 03:32 POC ABG HCO3 18.6 (22-26 mml/L) 11/09/18 03:32 POC ABG Total CO2 20 (23-27mmol/L) 11/09/18 03:32 POC ABG O2 Sat 98 11/09/18 03:32 POC ABG Base Excess -7 ((-2) - (+3)mmol/L) 11/09/18 03:32 35 % 11/09/18 03:32 Sodium 143 mmol/L (137-145) 11/09/18 04:12 Potassium 4.0 mmol/L (3.6-5.0) 11/09/18 04:12 Chloride 114.8 mmol/L (98-107) H 11/09/18 04:12 Carbon Dioxide 20 mmol/L (22-30) L 11/09/18 04:12 12 mmol/L 11/09/18 04:12 BUN 28 mg/dL (7-17) H 11/09/18 04:12 1.9 mg/dL (0.7-1.2) H 11/09/18 04:12 Estimated GFR 25 ml/min 11/09/18 04:12 15 % 11/09/18 04:12 Glucose 144 mg/dL (65-100) H 11/09/18 04:12 POC Glucose 163 (70-105) H 11/09/18 05:24 Lactic Acid 0.70 mmol/L (0.7-2.0) 11/09/18 04:12 Calcium 8.2 mg/dL (8.4-10.2) L 11/09/18 04:12 Phosphorus 3.00 mg/dL (2.5-4.5) D 11/08/18 04:27 Magnesium 2.20 mg/dL (1.7-2.3) 11/05/18 16:31 0.50 mg/dL (0.1-1.2) 11/06/18 04:09 AST 18 units/L (5-40) 11/06/18 04:09 ALT 14 units/L (7-56) 11/06/18 04:09 44 units/L (35-129) 11/06/18 04:09 44.0 umol/L (25-60) 11/05/18 17:28 < 7 units/L (30-135) L 11/05/18 16:31 0.019 ng/mL (0.00-0.029) 11/05/18 16:31 3.50 mg/dL (0.00-1.30) H 11/07/18 15:48 5.7 g/dL (6.3-8.2) L 11/06/18 04:09 3.1 g/dL (3.9-5) L 11/06/18 04:09 1.2 % 11/06/18 04:09 TSH 0.972 mlU/mL (0.270-4.200) 11/05/18 16:31 Yellow (Yellow) 11/05/18 20:47 Slightly-cloudy (Clear) 11/05/18 20:47 5.0 (5.0-7.0) 11/05/18 20:47 Ur Specific [place] 1.016 (1.003-1.030) 11/05/18 20:47 100 mg/dl mg/dL (Negative) 11/05/18 20:47 50 mg/dL (Negative) 11/05/18 20:47 Neg mg/dL (Negative) 11/05/18 20:47 Sm (Negative) 11/05/18 20:47 Pos (Negative) 11/05/18 20:47 Neg (Negative) 11/05/18 20:47 < 2.0 mg/dL (<2.0) 11/05/18 20:47 Ur Leukocyte Esterase Tr (Negative) 11/05/18 20:47 19.0 /HPF (0.0-6.0) H 11/05/18 20:47 4.0 /HPF (0.0-6.0) 11/05/18 20:47 U Epithel Cells (Auto) 1.0 /HPF (0-13.0) 11/05/18 20:47 Few /HPF 11/05/18 20:47 None seen (None Seen) 11/06/18 14:48 155.8 mg/dL (0.1-20.0) H 11/06/18 Unknown 40 mmol/L 11/06/18 Unknown 68 mg/dL (5-11.8) H 11/06/18 Unknown Vancomycin Trough 17.5 ug/mL (5.0-20.0) 11/08/18 21:16 Salicylates < 0.3 mg/dL (2.8-20.0) L 11/05/18 16:31 Acetaminophen < 5.0 ug/mL (10.0-30.0) L 11/05/18 16:31 Plasma/Serum Alcohol < 0.01 % (0-0.07) 11/05/18 16:31 Active Medications - Current Medications Current Medications: Generic Name Dose Route Start Last Admin Trade Name Freq PRN Reason Stop Dose Admin Albuterol 2.5 mg 11/05/18 17:52 Proventil IH Q3HRT PRN Shortness Of Breath Lipase/Protease/Amylase 1 each 11/07/18 11:07 Pancreaze 10,500 Unit FEEDTUBE PRN PRN For Clogged Feeding Tube Carvedilol 25 mg 11/08/18 10:00 11/09/18 09:18 Coreg PO 25 mg BID NIKKO Administration Dextrose 50 ml 11/05/18 17:59 D50w (25gm) Syringe IV PRN PRN Hypoglycemia Famotidine 20 mg 11/06/18 10:00 11/09/18 09:18 Pepcid IV 20 mg DAILY NIKKO Administration Fentanyl 50 mcg 11/05/18 16:21 11/08/18 04:48 Sublimaze IV 50 mcg Q10MIN PRN Administration ANALGESIA Gabapentin 800 mg 11/08/18 10:00 11/09/18 09:18 Neurontin PO 800 mg BID NIKKO Administration Hydralazine HCl 10 mg 11/05/18 21:30 11/08/18 04:53 Apresoline IV 10 mg Q6HR PRN Administration Hypertension Hydrophilic Ointment 1 applic 11/05/18 16:21 Vaseline Lip Therapy TP Q2HR PRN Dry Lips Fentanyl Citrate 2,000 mcg in 100 mls @ 3.485 mls/hr 11/05/18 17:00 11/09/18 04:43 Fentanyl Drip Premix IV 0 mcg/kg/hr TITR NIKKO 0 mls/hr Titration Protocol 1 MCG/KG/HR Lorazepam 100 mg/ Sodium 100 mls @ 1 mls/hr 11/05/18 17:00 11/07/18 08:23 Chloride/ Miscellaneous IV 0 mg/hr Information TITR NIKKO 0 mls/hr Titration Protocol 1 MG/HR Dextrose/Sodium Chloride 1,000 mls @ 75 mls/hr 11/06/18 09:00 11/09/18 05:28 D5/0.45ns IV 75 mls/hr DIRECT NIKKO Administration Cefepime HCl 1 gm in 100 mls @ 200 mls/hr 11/06/18 14:00 11/09/18 09:19 Maxipime/Ns 1 Gm/100 Ml IV 200 mls/hr Q12HR NIKKO Administration Protocol Vancomycin HCl 1 gm in 250 mls @ 166.667 mls/hr 11/06/18 22:00 11/08/18 22:40 Vancomycin/Ns 1 Gm/250 Ml IV 166.667 mls/hr Q24H NIKKO Administration Insulin Human Lispro 0 unit 11/06/18 12:00 11/09/18 07:26 Humalog SUB-Q Not Given Q6HR NIKKO Protocol Latanoprost 1 drops 11/08/18 18:00 11/08/18 17:22 Latanoprost 0.005% OU 1 drops QPM NIKKO Administration Lorazepam 2 mg 11/05/18 16:21 11/08/18 04:47 Ativan IV 2 mg Q10MIN PRN Administration Agitation Miscellaneous Medication 1 drop 11/08/18 22:00 11/09/18 09:37 Brimonidine Tartate OP 1 drop BID NIKKO Administration Multi-Ingred Cream/Lotion/Oil/Oint 1 applic 11/05/18 16:21 Artificial Tears Ophth Oint OU Q4HR PRN Dry Eye(s) Potassium Phos/Sodium Phos 2 each 11/07/18 18:00 11/09/18 05:28 Phos-Nak PO 2 each Q6HR NIKKO Administration Pravastatin Sodium 20 mg 11/08/18 10:00 11/09/18 09:19 Pravachol PO 20 mg DAILY NIKKO Administration Ropinirole HCl 1 mg 11/08/18 09:00 11/09/18 09:20 Requip PO 1 mg TID NIKKO Administration Simple Syrup 15 ml 11/07/18 11:07 Simple Syrup FEEDTUBE PRN PRN Hypoglycemia Simple Syrup 30 ml 11/07/18 11:07 Simple Syrup FEEDTUBE PRN PRN Hypoglycemia Sodium Bicarbonate 325 mg 11/07/18 11:07 Sodium Bicarbonate FEEDTUBE PRN PRN For Clogged Feeding Tube Sodium Chloride 10 ml 11/05/18 22:00 11/09/18 09:19 Sodium Chloride Flush Syringe 10 Ml IV 10 ml BID NIKKO Administration Sodium Chloride 10 ml 11/05/18 17:52 Sodium Chloride Flush Syringe 10 Ml IV PRN PRN LINE FLUSH Nutrition/Malnutrition Assess - Dietary Evaluation Nutrition/Malnutrition Findings: Nutrition Notes Start: 11/06/18 16:18 Freq: Status: Active Protocol: Document 11/07/18 13:39 LP (Rec: 11/07/18 14:04 LP [id number]) Nutrition Notes Initial or Follow up Reassessment Current Diagnosis Acute Kidney Injury, Respiratory Failure Other Pertinent Diagnosis Encephalopathy Current Diet NPO Labs/Tests Reviewed Pertinent Medications Reviewed Height 5 ft 5 in Weight 69.7 kg [place] Body Weight (kg) 56.81 BMI 25.5 Subjective/Other Information Consult for TF. Pt continues on vent. Burn Absent Trauma Absent #1 Nutrition Diagnosis Inadequate oral intake Diagnosis Progress(for reassessment Continues documentation) Is patient on ventilator? Yes Is Patient Ambulatory and/or Out of Bed No REE-([place]-St. Jeor-confined to bed) 1390.584 Calculation Used for Recommendations [place]-St Jeor Additional Notes Protein Needs: 84-139g (1.2-2g /kg) Fluid Needs: 1 ml/kcal Nutrition Intervention Change Diet Order: TF Nutrition Support: Promote at 55ml/hr Flush with 50ml q4h Kcal 1,320 Protein (gm) 83 Fluid (mL) 1,107 Goal #1 Meet at least 80% of kcal and protein needs Anticipated Discharge Needs: Unable to determine at this time Follow-Up By: 11/11/18 Additional Comments Follow for TF start/tolerance
--- NOTE | 2018-11-09 12:55 | Progress Note ---
Assessment and Plan Acute Renal Failure likely secondary to ischemic ATN, no obstruction: Hypokalemia: Hypernatremia: -Renal function reviewed, SCr level was 1.9 today, yesterday's SCr level was 1.6 -Baseline serum creatinine unknown -Off IV fluids for now -Hypernatremia improving, on free water flushes via OGT, serum sodium level was 143 today, yesterday's serum sodium level was 146 -Replete potassium -Renal US is negative for obstruction -Monitor I/O's -Avoid nephrotoxic agents -[place] Catheter: No (Purewick) -Renal plan d/w Dr Santiago Sepsis: -ID on board, follow cultures, on Abx, follow recs Acute encephalopathy: Possible Seizures -Neurology consulted, f/u recs Acute Hypoxic Respiratory Failure: -Intubated as per Pulmonary Subjective Date of service: 11/09/18 Principal diagnosis: Ac hypoxemic Resp Failure ; Possible Seizure; Ac. Met Encephalopathy; BRAD Interval history: Pt seen in ICU intubated on ventilator, son at bedside, updated on renal plan Objective - Vital Signs Vital signs: Vital Signs - 12hr 11/09/18 11/09/18 11/09/18 01:00 01:30 02:00 Temperature Pulse Rate 64 61 64 Pulse Rate [ Apical] Respiratory 14 14 13 Rate Blood Pressure 110/42 93/37 106/46 O2 Sat by Pulse 99 98 98 Oximetry 11/09/18 11/09/18 11/09/18 02:30 03:00 03:08 Temperature 98.5 F Pulse Rate 63 66 Pulse Rate [ Apical] Respiratory 14 14 Rate Blood Pressure 101/40 108/44 O2 Sat by Pulse 99 99 Oximetry 11/09/18 11/09/18 11/09/18 03:25 03:30 04:00 Temperature Pulse Rate 66 65 65 Pulse Rate [ 65 Apical] Respiratory 14 14 Rate Blood Pressure 108/44 115/46 103/41 O2 Sat by Pulse 100 100 100 Oximetry 11/09/18 11/09/18 11/09/18 04:30 05:00 05:30 Temperature Pulse Rate 66 63 62 Pulse Rate [ Apical] Respiratory 14 14 14 Rate Blood Pressure 114/45 96/37 101/38 O2 Sat by Pulse 100 100 100 Oximetry 11/09/18 11/09/18 11/09/18 06:00 06:31 07:00 Temperature Pulse Rate 73 70 68 Pulse Rate [ Apical] Respiratory 14 17 16 Rate Blood Pressure 101/38 115/47 117/42 O2 Sat by Pulse 100 100 100 Oximetry 11/09/18 11/09/18 11/09/18 07:31 07:35 08:00 Temperature 98.4 F Pulse Rate 72 71 69 Pulse Rate [ 65 Apical] Respiratory 17 22 16 Rate Blood Pressure 114/45 114/45 125/45 O2 Sat by Pulse 100 100 100 Oximetry 11/09/18 11/09/18 11/09/18 08:30 09:00 09:18 Temperature Pulse Rate 69 62 62 Pulse Rate [ Apical] Respiratory 15 20 Rate Blood Pressure 118/38 101/35 101/35 O2 Sat by Pulse 100 99 Oximetry 11/09/18 11/09/18 11/09/18 09:31 10:00 10:30 Temperature Pulse Rate 75 67 67 Pulse Rate [ Apical] Respiratory 14 17 16 Rate Blood Pressure 143/58 143/58 137/44 O2 Sat by Pulse 100 100 100 Oximetry 11/09/18 11/09/18 11:00 12:27 Temperature Pulse Rate 66 66 Pulse Rate [ Apical] Respiratory 17 19 Rate Blood Pressure 124/43 124/43 O2 Sat by Pulse 100 100 Oximetry - General Appearance General appearance: intubated EENT: ATNC Neck: no JVD Respiratory: Present: Decreased Breath Sounds (intubated on ventilator) Cardiology: regular, S1S2 Gastrointestinal: normoactive bowel sounds (orogastric tube intact) Integumentary: warm and dry Neurologic: other (intubated) Musculoskeletal: other (trace edema to BLE) Psychiatric: other (unable to assess) - Lab 11/09/18 04:12 11/09/18 04:12 Most recent lab results Calcium 8.2 mg/dL (8.4-10.2) L 11/09/18 04:12 Phosphorus 3.00 mg/dL (2.5-4.5) D 11/08/18 04:27 Magnesium 2.20 mg/dL (1.7-2.3) 11/05/18 16:31 155.8 mg/dL (0.1-20.0) H 11/06/18 Unknown 40 mmol/L 11/06/18 Unknown 68 mg/dL (5-11.8) H 11/06/18 Unknown Medications & Allergies - Medications Allergies/Adverse Reactions: Allergies aspirin Allergy (Verified 11/06/18 17:06) Unknown Home Medications: Home Medications Medication Instructions Recorded Confirmed Last Taken Type Carvedilol [Coreg] 25 mg PO BID 11/06/18 11/06/18 Unknown History Furosemide [Lasix TAB] 20 mg PO HS 11/06/18 11/06/18 Unknown History Furosemide [Lasix TAB] 40 mg PO QAM 11/06/18 11/06/18 Unknown History Gabapentin [Neurontin] 800 mg PO BID 11/06/18 11/06/18 Unknown History Pravastatin Sodium [Pravastatin] 20 mg PO DAILY 11/06/18 11/06/18 Unknown History Ropinirole HCl [Requip] 1 mg PO TID 11/06/18 11/06/18 Unknown History Brimonidine Tartrate [Brimonidine 1 drop OU BID 11/08/18 11/08/18 Unknown History Tartrate 0.2%] Active Medications: Generic Name Dose Route Start Last Admin Trade Name Freq PRN Reason Stop Dose Admin Albuterol 2.5 mg 11/05/18 17:52 Proventil IH Q3HRT PRN Shortness Of Breath Lipase/Protease/Amylase 1 each 11/07/18 11:07 Pancreazsarika Cruz 10,500 Unit FEEDTUBE PRN PRN For Clogged Feeding Tube Carvedilol 6.25 mg 11/09/18 11:00 Coreg PO BID NIKKO Dextrose 50 ml 11/05/18 17:59 D50w (25gm) Syringe IV PRN PRN Hypoglycemia Famotidine 20 mg 11/06/18 10:00 11/09/18 09:18 Pepcid IV 20 mg DAILY NIKKO Administration Fentanyl 50 mcg 11/05/18 16:21 11/08/18 04:48 Sublimaze IV 50 mcg Q10MIN PRN Administration ANALGESIA Gabapentin 800 mg 11/08/18 10:00 11/09/18 09:18 Neurontin PO 800 mg BID NIKKO Administration Hydralazine HCl 10 mg 11/05/18 21:30 11/08/18 04:53 Apresoline IV 10 mg Q6HR PRN Administration Hypertension Hydrophilic Ointment 1 applic 11/05/18 16:21 Vaseline Lip Therapy TP Q2HR PRN Dry Lips Fentanyl Citrate 2,000 mcg in 100 mls @ 3.485 mls/hr 11/05/18 17:00 11/09/18 04:43 Fentanyl Drip Premix IV 0 mcg/kg/hr TITR NIKKO 0 mls/hr Titration Protocol 1 MCG/KG/HR Lorazepam 100 mg/ Sodium 100 mls @ 1 mls/hr 11/05/18 17:00 11/07/18 08:23 Chloride/ Miscellaneous IV 0 mg/hr Information TITR NIKKO 0 mls/hr Titration Protocol 1 MG/HR Dextrose/Sodium Chloride 1,000 mls @ 75 mls/hr 11/06/18 09:00 11/09/18 05:28 D5/0.45ns IV 75 mls/hr DIRECT NIKKO Administration Cefepime HCl 1 gm in 100 mls @ 200 mls/hr 11/06/18 14:00 11/09/18 09:19 Maxipime/Ns 1 Gm/100 Ml IV 200 mls/hr Q12HR NIKKO Administration Protocol Vancomycin HCl 1 gm in 250 mls @ 166.667 mls/hr 11/06/18 22:00 11/08/18 22:40 Vancomycin/Ns 1 Gm/250 Ml IV 166.667 mls/hr Q24H NIKKO Administration Insulin Human Lispro 0 unit 11/06/18 12:00 11/09/18 07:26 Humalog SUB-Q Not Given Q6HR NIKKO Protocol Latanoprost 1 drops 11/08/18 18:00 11/08/18 17:22 Latanoprost 0.005% OU 1 drops QPM NIKKO Administration Lorazepam 2 mg 11/05/18 16:21 11/08/18 04:47 Ativan IV 2 mg Q10MIN PRN Administration Agitation Miscellaneous Medication 1 drop 11/08/18 22:00 11/09/18 09:37 Brimonidine Tartate OP 1 drop BID NIKKO Administration Multi-Ingred Cream/Lotion/Oil/Oint 1 applic 11/05/18 16:21 Artificial Tears Ophth Oint OU Q4HR PRN Dry Eye(s) Potassium Phos/Sodium Phos 2 each 11/07/18 18:00 11/09/18 05:28 Phos-Nak PO 2 each Q6HR NIKKO Administration Pravastatin Sodium 20 mg 11/08/18 10:00 11/09/18 09:19 Pravachol PO 20 mg DAILY NIKKO Administration Ropinirole HCl 1 mg 11/08/18 09:00 11/09/18 09:20 Requip PO 1 mg TID NIKKO Administration Simple Syrup 15 ml 11/07/18 11:07 Simple Syrup FEEDTUBE PRN PRN Hypoglycemia Simple Syrup 30 ml 11/07/18 11:07 Simple Syrup FEEDTUBE PRN PRN Hypoglycemia Sodium Bicarbonate 325 mg 11/07/18 11:07 Sodium Bicarbonate FEEDTUBE PRN PRN For Clogged Feeding Tube Sodium Chloride 10 ml 11/05/18 22:00 11/09/18 09:19 Sodium Chloride Flush Syringe 10 Ml IV 10 ml BID NIKKO Administration Sodium Chloride 10 ml 11/05/18 17:52 Sodium Chloride Flush Syringe 10 Ml IV PRN PRN LINE FLUSH
[2018-11-09] MEDS: LATANOPROST 0.005% OU SCH (18:26)
--- NOTE | 2018-11-09 19:27 | Progress Note ---
Subjective Date of service: 11/09/18 Principal diagnosis: Ac hypoxemic Resp Failure ; Possible Seizure; Ac. Met Encephalopathy; BRAD Interval history: interesting that the meningioma can be seen very faintly and clearly has no impact on the underlying brain as there is no edema present and meningioma is seperate from the cortical ribbon proving that there is nothing of significant effect also there is no stroke Objective - Vital Sign Vital Signs - 12hr 11/09/18 11/09/18 11/09/18 07:31 07:35 08:00 Temperature 98.4 F Pulse Rate 72 71 69 Respiratory 17 22 16 Rate Blood Pressure 114/45 114/45 125/45 O2 Sat by Pulse 100 100 100 Oximetry 11/09/18 11/09/18 11/09/18 08:30 09:00 09:18 Temperature Pulse Rate 69 62 62 Respiratory 15 20 Rate Blood Pressure 118/38 101/35 101/35 O2 Sat by Pulse 100 99 Oximetry 11/09/18 11/09/18 11/09/18 09:31 10:00 10:30 Temperature Pulse Rate 75 67 67 Respiratory 14 17 16 Rate Blood Pressure 143/58 143/58 137/44 O2 Sat by Pulse 100 100 100 Oximetry 11/09/18 11/09/18 11/09/18 11:00 11:31 12:00 Temperature 97.8 F Pulse Rate 66 64 62 Respiratory 17 18 Rate Blood Pressure 124/43 117/38 O2 Sat by Pulse 100 100 Oximetry 11/09/18 11/09/18 11/09/18 12:01 12:27 12:30 Temperature Pulse Rate 62 66 68 Respiratory 20 19 15 Rate Blood Pressure 127/34 124/43 136/48 O2 Sat by Pulse 100 100 100 Oximetry 11/09/18 11/09/18 11/09/18 13:00 13:31 14:00 Temperature Pulse Rate 69 69 70 Respiratory 17 19 19 Rate Blood Pressure 124/51 122/44 117/47 O2 Sat by Pulse 100 100 100 Oximetry 11/09/18 11/09/18 11/09/18 14:30 15:01 15:25 Temperature Pulse Rate 70 74 69 Respiratory 18 19 19 Rate Blood Pressure 123/39 131/42 124/51 O2 Sat by Pulse 100 99 100 Oximetry 11/09/18 11/09/18 11/09/18 15:31 16:00 16:31 Temperature Pulse Rate 85 76 78 Respiratory 25 H 27 H 26 H Rate Blood Pressure 137/64 140/47 114/48 O2 Sat by Pulse 98 98 97 Oximetry 11/09/18 11/09/18 11/09/18 17:00 17:31 18:00 Temperature Pulse Rate 84 82 88 Respiratory 23 21 25 H Rate Blood Pressure 154/47 140/41 137/60 O2 Sat by Pulse 97 98 98 Oximetry - Laboratory Findings CBC and BMP: 11/09/18 04:12 11/09/18 04:12 Abnormal Lab Findings: Abnormal Labs 11/05/18 11/05/18 11/05/18 16:31 16:31 16:31 WBC RBC Hgb Hct Plt Count 139 L [place] % (Auto) Lymph # 0.7 L Seg Neutrophils % 78.8 H POC ABG pH POC ABG pCO2 POC ABG pO2 Sodium 148 H Potassium 3.2 L Chloride 110.6 H Carbon Dioxide 17 L BUN 18 H Creatinine 1.9 H Glucose 205 H POC Glucose Lactic Acid 8.20 H* Calcium 10.9 H Phosphorus Total Creatine Kinase C-Reactive Protein Total Protein Albumin 3.6 L Urine WBC (Auto) Urine Creatinine Urine Total Protein Salicylates Acetaminophen 11/05/18 11/05/18 11/05/18 16:31 16:31 16:31 WBC RBC Hgb Hct Plt Count [place] % (Auto) Lymph # Seg Neutrophils % POC ABG pH POC ABG pCO2 POC ABG pO2 Sodium Potassium Chloride Carbon Dioxide BUN Creatinine Glucose POC Glucose Lactic Acid Calcium Phosphorus Total Creatine Kinase < 7 L C-Reactive Protein Total Protein Albumin Urine WBC (Auto) Urine Creatinine Urine Total Protein Salicylates < 0.3 L Acetaminophen < 5.0 L 11/05/18 11/05/18 11/05/18 17:29 17:42 20:47 WBC RBC Hgb Hct Plt Count [place] % (Auto) Lymph # Seg Neutrophils % POC ABG pH POC ABG pCO2 33.4 L POC ABG pO2 136 H Sodium Potassium Chloride Carbon Dioxide BUN Creatinine Glucose POC Glucose Lactic Acid 3.30 H* Calcium Phosphorus Total Creatine Kinase C-Reactive Protein Total Protein Albumin Urine WBC (Auto) 19.0 H Urine Creatinine Urine Total Protein Salicylates Acetaminophen 11/05/18 11/05/18 11/06/18 20:47 22:42 04:09 WBC 4.4 L RBC Hgb Hct Plt Count 102 L [place] % (Auto) 13.2 H Lymph # 1.0 L Seg Neutrophils % POC ABG pH POC ABG pCO2 POC ABG pO2 Sodium Potassium Chloride Carbon Dioxide BUN Creatinine Glucose POC Glucose 121 H Lactic Acid Calcium Phosphorus Total Creatine Kinase C-Reactive Protein Total Protein Albumin Urine WBC (Auto) Urine Creatinine 166.9 H Urine Total Protein Salicylates Acetaminophen 11/06/18 11/06/18 11/06/18 04:09 05:05 07:31 WBC RBC Hgb Hct Plt Count [place] % (Auto) Lymph # Seg Neutrophils % POC ABG pH 7.509 H POC ABG pCO2 < 30 L POC ABG pO2 115 H Sodium 150 H Potassium 2.7 L* Chloride 118.2 H Carbon Dioxide 21 L BUN 21 H Creatinine 1.6 H Glucose 125 H POC Glucose Lactic Acid 2.50 H* Calcium Phosphorus Total Creatine Kinase C-Reactive Protein Total Protein 5.7 L Albumin 3.1 L Urine WBC (Auto) Urine Creatinine Urine Total Protein Salicylates Acetaminophen 11/06/18 11/06/18 11/06/18 12:04 16:21 18:04 WBC RBC Hgb Hct Plt Count [place] % (Auto) Lymph # Seg Neutrophils % POC ABG pH POC ABG pCO2 POC ABG pO2 Sodium Potassium 5.4 H D Chloride Carbon Dioxide BUN Creatinine Glucose POC Glucose 122 H 110 H Lactic Acid Calcium Phosphorus Total Creatine Kinase C-Reactive Protein Total Protein Albumin Urine WBC (Auto) Urine Creatinine Urine Total Protein Salicylates Acetaminophen 11/06/18 11/06/18 11/07/18 21:28 Unknown 04:02 WBC RBC Hgb Hct Plt Count [place] % (Auto) Lymph # Seg Neutrophils % POC ABG pH POC ABG pCO2 POC ABG pO2 Sodium 152 H Potassium Chloride 123.4 H Carbon Dioxide 20 L BUN 23 H Creatinine 1.5 H Glucose 111 H POC Glucose 125 H Lactic Acid Calcium Phosphorus 1.00 L Total Creatine Kinase C-Reactive Protein Total Protein Albumin Urine WBC (Auto) Urine Creatinine 155.8 H Urine Total Protein 68 H Salicylates Acetaminophen 11/07/18 11/07/18 11/07/18 09:07 11:05 15:48 WBC 4.1 L RBC 3.62 L Hgb Hct Plt Count 77 L [place] % (Auto) Lymph # Seg Neutrophils % POC ABG pH 7.314 L POC ABG pCO2 POC ABG pO2 Sodium Potassium Chloride Carbon Dioxide BUN Creatinine Glucose POC Glucose Lactic Acid Calcium Phosphorus Total Creatine Kinase C-Reactive Protein 3.50 H Total Protein Albumin Urine WBC (Auto) Urine Creatinine Urine Total Protein Salicylates Acetaminophen 11/08/18 11/08/18 11/08/18 04:27 05:29 12:27 WBC RBC Hgb Hct Plt Count [place] % (Auto) Lymph # Seg Neutrophils % POC ABG pH POC ABG pCO2 33.4 L POC ABG pO2 78 L Sodium 146 H Potassium Chloride 117.1 H Carbon Dioxide 18 L BUN 19 H Creatinine 1.6 H Glucose 111 H POC Glucose 108 H Lactic Acid Calcium Phosphorus Total Creatine Kinase C-Reactive Protein Total Protein Albumin Urine WBC (Auto) Urine Creatinine Urine Total Protein Salicylates Acetaminophen 11/08/18 11/08/18 11/08/18 12:27 18:11 23:50 WBC RBC Hgb Hct Plt Count [place] % (Auto) Lymph # Seg Neutrophils % POC ABG pH POC ABG pCO2 POC ABG pO2 Sodium Potassium Chloride Carbon Dioxide BUN Creatinine Glucose POC Glucose 188 H 126 H 149 H Lactic Acid Calcium Phosphorus Total Creatine Kinase C-Reactive Protein Total Protein Albumin Urine WBC (Auto) Urine Creatinine Urine Total Protein Salicylates Acetaminophen 11/09/18 11/09/18 11/09/18 03:32 04:12 04:12 WBC 3.6 L RBC 2.99 L Hgb 8.8 L Hct 26.9 L Plt Count 81 L [place] % (Auto) Lymph # Seg Neutrophils % POC ABG pH 7.329 L POC ABG pCO2 POC ABG pO2 Sodium Potassium Chloride 114.8 H Carbon Dioxide 20 L BUN 28 H Creatinine 1.9 H Glucose 144 H POC Glucose Lactic Acid Calcium 8.2 L Phosphorus Total Creatine Kinase C-Reactive Protein Total Protein Albumin Urine WBC (Auto) Urine Creatinine Urine Total Protein Salicylates Acetaminophen 11/09/18 11/09/18 11/09/18 05:24 12:59 17:59 WBC RBC Hgb Hct Plt Count [place] % (Auto) Lymph # Seg Neutrophils % POC ABG pH POC ABG pCO2 POC ABG pO2 Sodium Potassium Chloride Carbon Dioxide BUN Creatinine Glucose POC Glucose 163 H 175 H 116 H Lactic Acid Calcium Phosphorus Total Creatine Kinase C-Reactive Protein Total Protein Albumin Urine WBC (Auto) Urine Creatinine Urine Total Protein Salicylates Acetaminophen
[2018-11-09] MEDS: VANCOMYCIN/NS 1 GM/250 ML 1 GM/250 ML BAG IV SCH (22:29)
--- NOTE | 2018-11-10 02:30 | XRay Report ---
CHEST 1 VIEW INDICATION / CLINICAL INFORMATION: follow up respiratory failure. COMPARISON: 11/09/2018 FINDINGS: SUPPORT DEVICES: Stable, satisfactory device positioning. HEART / MEDIASTINUM: No significant abnormality. LUNGS / PLEURA: Hazy opacities of developed in both lower hemithoraces. No pneumothorax. ADDITIONAL FINDINGS: No significant additional findings. IMPRESSION: 1. Developing atelectasis versus bilateral pleural effusions Signer Name: Jimbo Mehta MD Signed: 11/10/2018 2:26 AM Workstation Name: [id number]
[2018-11-10] MEDS: HumaLOG SUB-Q SCH ×4 (03:08→17:42)
--- NOTE | 2018-11-10 06:19 | Progress Note ---
Assessment and Plan Acute Renal Failure likely secondary to ischemic ATN, no obstruction: Hypokalemia: Hypernatremia: -Labs pending today -Baseline serum creatinine unknown -Off IV fluids for now -Hypernatremia - labs pending today, has been improving, on free water flushes via OGT -Replete potassium -Renal US is negative for obstruction -Monitor I/O's -Avoid nephrotoxic agents -[place] Catheter: No (Purewick) -Renal plan d/w Dr Santiago Sepsis: -ID on board, follow cultures, on Abx, follow recs Acute encephalopathy: Possible Seizures -Neurology on board, f/u recs Acute Hypoxic Respiratory Failure: -Intubated as per Pulmonary Subjective Date of service: 11/10/18 Principal diagnosis: Ac hypoxemic Resp Failure ; Possible Seizure; Ac. Met Encephalopathy; BRAD Interval history: Pt seen in ICU bed, remains intubated, no family at bedside Objective - Vital Signs Vital signs: Vital Signs - 12hr 11/09/18 11/09/18 11/09/18 19:00 19:30 20:00 Temperature 97.8 F Pulse Rate 83 85 85 Respiratory 22 15 16 Rate Blood Pressure 135/45 148/49 148/54 O2 Sat by Pulse 97 96 100 Oximetry 11/09/18 11/09/18 11/09/18 20:13 20:30 21:00 Temperature Pulse Rate 92 H 84 81 Respiratory 19 16 15 Rate Blood Pressure 148/54 153/47 138/46 O2 Sat by Pulse 99 98 98 Oximetry 11/09/18 11/09/18 11/09/18 21:30 22:01 22:30 Temperature Pulse Rate 80 85 79 Respiratory 14 17 14 Rate Blood Pressure 128/41 131/104 133/39 O2 Sat by Pulse 98 97 98 Oximetry 11/09/18 11/09/18 11/09/18 22:32 23:00 23:30 Temperature Pulse Rate 79 78 83 Respiratory 15 17 Rate Blood Pressure 133/39 118/40 120/48 O2 Sat by Pulse 98 98 Oximetry 11/09/18 11/10/18 11/10/18 23:37 00:00 00:28 Temperature 98.2 F Pulse Rate 78 72 73 Respiratory 15 14 19 Rate Blood Pressure 120/48 114/36 114/36 O2 Sat by Pulse 99 98 99 Oximetry 11/10/18 11/10/18 11/10/18 00:33 00:34 01:00 Temperature Pulse Rate 72 73 Respiratory 16 14 Rate Blood Pressure 117/37 O2 Sat by Pulse 100 98 Oximetry 11/10/18 11/10/18 11/10/18 02:00 03:00 03:57 Temperature Pulse Rate 82 93 H 81 Respiratory 14 22 Rate Blood Pressure 140/50 128/53 133/49 O2 Sat by Pulse 98 100 100 Oximetry 11/10/18 11/10/18 11/10/18 04:00 04:21 04:23 Temperature Pulse Rate 85 82 Respiratory 20 16 Rate Blood Pressure 143/55 O2 Sat by Pulse 100 100 Oximetry 11/10/18 11/10/18 05:00 06:00 Temperature Pulse Rate 87 87 Respiratory 16 15 Rate Blood Pressure 164/43 94/52 O2 Sat by Pulse 100 100 Oximetry - General Appearance General appearance: intubated EENT: ATNC Neck: no JVD Respiratory: Present: Decreased Breath Sounds (intubated) Cardiology: regular, S1S2 Gastrointestinal: normoactive bowel sounds (orogastric tube intact) Integumentary: warm and dry Neurologic: other (intubated on ventilator) Musculoskeletal: other (trace edema to BLE) Psychiatric: other (unable to assess) - Lab 11/09/18 04:12 11/09/18 04:12 Most recent lab results Calcium 8.2 mg/dL (8.4-10.2) L 11/09/18 04:12 Phosphorus 3.00 mg/dL (2.5-4.5) D 11/08/18 04:27 Magnesium 2.20 mg/dL (1.7-2.3) 11/05/18 16:31 155.8 mg/dL (0.1-20.0) H 11/06/18 Unknown 40 mmol/L 11/06/18 Unknown 68 mg/dL (5-11.8) H 11/06/18 Unknown Medications & Allergies - Medications Allergies/Adverse Reactions: Allergies aspirin Allergy (Verified 11/06/18 17:06) Unknown Home Medications: Home Medications Medication Instructions Recorded Confirmed Last Taken Type Carvedilol [Coreg] 25 mg PO BID 11/06/18 11/06/18 Unknown History Furosemide [Lasix TAB] 20 mg PO HS 11/06/18 11/06/18 Unknown History Furosemide [Lasix TAB] 40 mg PO QAM 11/06/18 11/06/18 Unknown History Gabapentin [Neurontin] 800 mg PO BID 11/06/18 11/06/18 Unknown History Pravastatin Sodium [Pravastatin] 20 mg PO DAILY 11/06/18 11/06/18 Unknown History Ropinirole HCl [Requip] 1 mg PO TID 11/06/18 11/06/18 Unknown History Brimonidine Tartrate [Brimonidine 1 drop OU BID 11/08/18 11/08/18 Unknown History Tartrate 0.2%] Active Medications: Generic Name Dose Route Start Last Admin Trade Name Freq PRN Reason Stop Dose Admin Albuterol 2.5 mg 11/05/18 17:52 Proventil IH Q3HRT PRN Shortness Of Breath Lipase/Protease/Amylase 1 each 11/07/18 11:07 Pancreaze 10,500 Unit FEEDTUBE PRN PRN For Clogged Feeding Tube Carvedilol 6.25 mg 11/09/18 11:00 11/09/18 22:32 Coreg PO 6.25 mg BID NIKKO Administration Dextrose 50 ml 11/05/18 17:59 D50w (25gm) Syringe IV PRN PRN Hypoglycemia Famotidine 20 mg 11/06/18 10:00 11/09/18 09:18 Pepcid IV 20 mg DAILY NIKKO Administration Fentanyl 50 mcg 11/05/18 16:21 11/08/18 04:48 Sublimaze IV 50 mcg Q10MIN PRN Administration ANALGESIA Gabapentin 800 mg 11/08/18 10:00 11/09/18 22:32 Neurontin PO 800 mg BID NIKKO Administration Hydralazine HCl 10 mg 11/05/18 21:30 11/08/18 04:53 Apresoline IV 10 mg Q6HR PRN Administration Hypertension Hydrophilic Ointment 1 applic 11/05/18 16:21 Vaseline Lip Therapy TP Q2HR PRN Dry Lips Fentanyl Citrate 2,000 mcg in 100 mls @ 3.485 mls/hr 11/05/18 17:00 11/09/18 04:43 Fentanyl Drip Premix IV 0 mcg/kg/hr TITR NIKKO 0 mls/hr Titration Protocol 1 MCG/KG/HR Lorazepam 100 mg/ Sodium 100 mls @ 1 mls/hr 11/05/18 17:00 11/07/18 08:23 Chloride/ Miscellaneous IV 0 mg/hr Information TITR NIKKO 0 mls/hr Titration Protocol 1 MG/HR Cefepime HCl 1 gm in 100 mls @ 200 mls/hr 11/06/18 14:00 11/09/18 22:29 Maxipime/Ns 1 Gm/100 Ml IV 200 mls/hr Q12HR NIKKO Administration Protocol Vancomycin HCl 1 gm in 250 mls @ 166.667 mls/hr 11/06/18 22:00 11/09/18 22:29 Vancomycin/Ns 1 Gm/250 Ml IV 166.667 mls/hr Q24H NIKKO Administration Insulin Human Lispro 0 unit 11/06/18 12:00 11/10/18 03:08 Humalog SUB-Q 2 unit Q6HR NIKKO Administration Protocol Latanoprost 1 drops 11/08/18 18:00 11/09/18 18:26 Latanoprost 0.005% OU 1 drops QPM NIKKO Administration Lorazepam 2 mg 11/05/18 16:21 11/08/18 04:47 Ativan IV 2 mg Q10MIN PRN Administration Agitation Miscellaneous Medication 1 drop 11/08/18 22:00 11/09/18 22:28 Brimonidine Tartate OP 1 drop BID NIKKO Administration Multi-Ingred Cream/Lotion/Oil/Oint 1 applic 11/05/18 16:21 Artificial Tears Ophth Oint OU Q4HR PRN Dry Eye(s) Potassium Phos/Sodium Phos 2 each 11/07/18 18:00 11/09/18 23:30 Phos-Nak PO 2 each Q6HR NIKKO Administration Pravastatin Sodium 20 mg 11/08/18 10:00 11/09/18 09:19 Pravachol PO 20 mg DAILY NIKKO Administration Ropinirole HCl 1 mg 11/08/18 09:00 11/09/18 20:44 Requip PO 1 mg TID NIKKO Administration Simple Syrup 15 ml 11/07/18 11:07 Simple Syrup FEEDTUBE PRN PRN Hypoglycemia Simple Syrup 30 ml 11/07/18 11:07 Simple Syrup FEEDTUBE PRN PRN Hypoglycemia Sodium Bicarbonate 325 mg 11/07/18 11:07 Sodium Bicarbonate FEEDTUBE PRN PRN For Clogged Feeding Tube Sodium Chloride 10 ml 11/05/18 22:00 11/09/18 22:27 Sodium Chloride Flush Syringe 10 Ml IV 10 ml BID NIKKO Administration Sodium Chloride 10 ml 11/05/18 17:52 Sodium Chloride Flush Syringe 10 Ml IV PRN PRN LINE FLUSH
[2018-11-10] MEDS: PHOS-NAK PO SCH ×3 (07:17→17:41)
--- NOTE | 2018-11-10 07:29 | Progress Note ---
Subjective Date of service: 11/10/18 Principal diagnosis: Ac hypoxemic Resp Failure ; Possible Seizure; Ac. Met Encephalopathy; BRAD Interval history: continues to slowly improve more alert no further seizures see note about MRI I see meningioma it is of no consequence IMO Objective - Vital Sign Vital Signs - 12hr 11/09/18 11/09/18 11/09/18 19:30 20:00 20:13 Temperature 97.8 F Pulse Rate 85 85 92 H Respiratory 15 16 19 Rate Blood Pressure 148/49 148/54 148/54 O2 Sat by Pulse 96 100 99 Oximetry 11/09/18 11/09/18 11/09/18 20:30 21:00 21:30 Temperature Pulse Rate 84 81 80 Respiratory 16 15 14 Rate Blood Pressure 153/47 138/46 128/41 O2 Sat by Pulse 98 98 98 Oximetry 11/09/18 11/09/18 11/09/18 22:01 22:30 22:32 Temperature Pulse Rate 85 79 79 Respiratory 17 14 Rate Blood Pressure 131/104 133/39 133/39 O2 Sat by Pulse 97 98 Oximetry 11/09/18 11/09/18 11/09/18 23:00 23:30 23:37 Temperature Pulse Rate 78 83 78 Respiratory 15 17 15 Rate Blood Pressure 118/40 120/48 120/48 O2 Sat by Pulse 98 98 99 Oximetry 11/10/18 11/10/18 11/10/18 00:00 00:28 00:33 Temperature 98.2 F Pulse Rate 72 73 72 Respiratory 14 19 Rate Blood Pressure 114/36 114/36 O2 Sat by Pulse 98 99 Oximetry 11/10/18 11/10/18 11/10/18 00:34 01:00 02:00 Temperature Pulse Rate 73 82 Respiratory 16 14 14 Rate Blood Pressure 117/37 140/50 O2 Sat by Pulse 100 98 98 Oximetry 11/10/18 11/10/18 11/10/18 03:00 03:57 04:00 Temperature 98.2 F Pulse Rate 93 H 81 85 Respiratory 22 20 Rate Blood Pressure 128/53 133/49 143/55 O2 Sat by Pulse 100 100 100 Oximetry 11/10/18 11/10/18 11/10/18 04:21 04:23 05:00 Temperature Pulse Rate 82 87 Respiratory 16 16 Rate Blood Pressure 164/43 O2 Sat by Pulse 100 100 Oximetry 11/10/18 11/10/18 06:00 07:00 Temperature Pulse Rate 87 80 Respiratory 15 14 Rate Blood Pressure 94/52 131/46 O2 Sat by Pulse 100 100 Oximetry - Laboratory Findings CBC and BMP: 11/09/18 04:12 11/09/18 04:12 Abnormal Lab Findings: Abnormal Labs 11/05/18 11/05/18 11/05/18 16:31 16:31 16:31 WBC RBC Hgb Hct Plt Count 139 L [place] % (Auto) Lymph # 0.7 L Seg Neutrophils % 78.8 H POC ABG pH POC ABG pCO2 POC ABG pO2 Sodium 148 H Potassium 3.2 L Chloride 110.6 H Carbon Dioxide 17 L BUN 18 H Creatinine 1.9 H Glucose 205 H POC Glucose Lactic Acid 8.20 H* Calcium 10.9 H Phosphorus Total Creatine Kinase C-Reactive Protein Total Protein Albumin 3.6 L Urine WBC (Auto) Urine Creatinine Urine Total Protein Salicylates Acetaminophen 11/05/18 11/05/18 11/05/18 16:31 16:31 16:31 WBC RBC Hgb Hct Plt Count [place] % (Auto) Lymph # Seg Neutrophils % POC ABG pH POC ABG pCO2 POC ABG pO2 Sodium Potassium Chloride Carbon Dioxide BUN Creatinine Glucose POC Glucose Lactic Acid Calcium Phosphorus Total Creatine Kinase < 7 L C-Reactive Protein Total Protein Albumin Urine WBC (Auto) Urine Creatinine Urine Total Protein Salicylates < 0.3 L Acetaminophen < 5.0 L 11/05/18 11/05/18 11/05/18 17:29 17:42 20:47 WBC RBC Hgb Hct Plt Count [place] % (Auto) Lymph # Seg Neutrophils % POC ABG pH POC ABG pCO2 33.4 L POC ABG pO2 136 H Sodium Potassium Chloride Carbon Dioxide BUN Creatinine Glucose POC Glucose Lactic Acid 3.30 H* Calcium Phosphorus Total Creatine Kinase C-Reactive Protein Total Protein Albumin Urine WBC (Auto) 19.0 H Urine Creatinine Urine Total Protein Salicylates Acetaminophen 11/05/18 11/05/18 11/06/18 20:47 22:42 04:09 WBC 4.4 L RBC Hgb Hct Plt Count 102 L [place] % (Auto) 13.2 H Lymph # 1.0 L Seg Neutrophils % POC ABG pH POC ABG pCO2 POC ABG pO2 Sodium Potassium Chloride Carbon Dioxide BUN Creatinine Glucose POC Glucose 121 H Lactic Acid Calcium Phosphorus Total Creatine Kinase C-Reactive Protein Total Protein Albumin Urine WBC (Auto) Urine Creatinine 166.9 H Urine Total Protein Salicylates Acetaminophen 11/06/18 11/06/18 11/06/18 04:09 05:05 07:31 WBC RBC Hgb Hct Plt Count [place] % (Auto) Lymph # Seg Neutrophils % POC ABG pH 7.509 H POC ABG pCO2 < 30 L POC ABG pO2 115 H Sodium 150 H Potassium 2.7 L* Chloride 118.2 H Carbon Dioxide 21 L BUN 21 H Creatinine 1.6 H Glucose 125 H POC Glucose Lactic Acid 2.50 H* Calcium Phosphorus Total Creatine Kinase C-Reactive Protein Total Protein 5.7 L Albumin 3.1 L Urine WBC (Auto) Urine Creatinine Urine Total Protein Salicylates Acetaminophen 11/06/18 11/06/18 11/06/18 12:04 16:21 18:04 WBC RBC Hgb Hct Plt Count [place] % (Auto) Lymph # Seg Neutrophils % POC ABG pH POC ABG pCO2 POC ABG pO2 Sodium Potassium 5.4 H D Chloride Carbon Dioxide BUN Creatinine Glucose POC Glucose 122 H 110 H Lactic Acid Calcium Phosphorus Total Creatine Kinase C-Reactive Protein Total Protein Albumin Urine WBC (Auto) Urine Creatinine Urine Total Protein Salicylates Acetaminophen 11/06/18 11/06/18 11/07/18 21:28 Unknown 04:02 WBC RBC Hgb Hct Plt Count [place] % (Auto) Lymph # Seg Neutrophils % POC ABG pH POC ABG pCO2 POC ABG pO2 Sodium 152 H Potassium Chloride 123.4 H Carbon Dioxide 20 L BUN 23 H Creatinine 1.5 H Glucose 111 H POC Glucose 125 H Lactic Acid Calcium Phosphorus 1.00 L Total Creatine Kinase C-Reactive Protein Total Protein Albumin Urine WBC (Auto) Urine Creatinine 155.8 H Urine Total Protein 68 H Salicylates Acetaminophen 11/07/18 11/07/18 11/07/18 09:07 11:05 15:48 WBC 4.1 L RBC 3.62 L Hgb Hct Plt Count 77 L [place] % (Auto) Lymph # Seg Neutrophils % POC ABG pH 7.314 L POC ABG pCO2 POC ABG pO2 Sodium Potassium Chloride Carbon Dioxide BUN Creatinine Glucose POC Glucose Lactic Acid Calcium Phosphorus Total Creatine Kinase C-Reactive Protein 3.50 H Total Protein Albumin Urine WBC (Auto) Urine Creatinine Urine Total Protein Salicylates Acetaminophen 11/08/18 11/08/18 11/08/18 04:27 05:29 12:27 WBC RBC Hgb Hct Plt Count [place] % (Auto) Lymph # Seg Neutrophils % POC ABG pH POC ABG pCO2 33.4 L POC ABG pO2 78 L Sodium 146 H Potassium Chloride 117.1 H Carbon Dioxide 18 L BUN 19 H Creatinine 1.6 H Glucose 111 H POC Glucose 108 H Lactic Acid Calcium Phosphorus Total Creatine Kinase C-Reactive Protein Total Protein Albumin Urine WBC (Auto) Urine Creatinine Urine Total Protein Salicylates Acetaminophen 11/08/18 11/08/18 11/08/18 12:27 18:11 23:50 WBC RBC Hgb Hct Plt Count [place] % (Auto) Lymph # Seg Neutrophils % POC ABG pH POC ABG pCO2 POC ABG pO2 Sodium Potassium Chloride Carbon Dioxide BUN Creatinine Glucose POC Glucose 188 H 126 H 149 H Lactic Acid Calcium Phosphorus Total Creatine Kinase C-Reactive Protein Total Protein Albumin Urine WBC (Auto) Urine Creatinine Urine Total Protein Salicylates Acetaminophen 11/09/18 11/09/18 11/09/18 03:32 04:12 04:12 WBC 3.6 L RBC 2.99 L Hgb 8.8 L Hct 26.9 L Plt Count 81 L [place] % (Auto) Lymph # Seg Neutrophils % POC ABG pH 7.329 L POC ABG pCO2 POC ABG pO2 Sodium Potassium Chloride 114.8 H Carbon Dioxide 20 L BUN 28 H Creatinine 1.9 H Glucose 144 H POC Glucose Lactic Acid Calcium 8.2 L Phosphorus Total Creatine Kinase C-Reactive Protein Total Protein Albumin Urine WBC (Auto) Urine Creatinine Urine Total Protein Salicylates Acetaminophen 11/09/18 11/09/18 11/09/18 05:24 12:59 17:59 WBC RBC Hgb Hct Plt Count [place] % (Auto) Lymph # Seg Neutrophils % POC ABG pH POC ABG pCO2 POC ABG pO2 Sodium Potassium Chloride Carbon Dioxide BUN Creatinine Glucose POC Glucose 163 H 175 H 116 H Lactic Acid Calcium Phosphorus Total Creatine Kinase C-Reactive Protein Total Protein Albumin Urine WBC (Auto) Urine Creatinine Urine Total Protein Salicylates Acetaminophen 11/10/18 11/10/18 00:45 03:57 WBC RBC Hgb Hct Plt Count [place] % (Auto) Lymph # Seg Neutrophils % POC ABG pH 7.332 L POC ABG pCO2 POC ABG pO2 Sodium Potassium Chloride Carbon Dioxide BUN Creatinine Glucose POC Glucose 201 H Lactic Acid Calcium Phosphorus Total Creatine Kinase C-Reactive Protein Total Protein Albumin Urine WBC (Auto) Urine Creatinine Urine Total Protein Salicylates Acetaminophen
[2018-11-10] MEDS: REQUIP PO SCH ×3 (08:41→20:20)
[2018-11-10] MEDS: PEPCID IV SCH (09:39)
--- NOTE | 2018-11-10 09:39 | Progress Note ---
Assessment and Plan Assessment and plan: 82 YO Female presented to then ED after the patient was found down and unresponsive and reports seizure like activity. On EMS arrival patient was noted to have a GCS of 3 and was placed on oxygen mask and intubated in the ED on arrival. Initial Temp was noted as 102.2 In the ED patient was intubated due to AMS and Acute Hypoxemic Respiratory Failure, and is unable to protect her airway, Teleneurology consulted in ED. Pt deemed not a candidate for TPA. No prior admission for review. CXR: worsening left lobar infiltrate Renal us: Small left renal cyst, negative for obstruction or mass MRI Head: negative for acute pathology Culture: Staph homis in blood staph aureus in sputum SIRS/Sepsis: Presumed Left Lobar Pneumonia: Continue Abx, ID following. Hypertensive Urgency: Resume Coreg, Hydrazine Acute Respiratory Failure with Hypoxia Possible Seizure Lactic Acidosis Hypernatermia: Continue free water Acute Metabolic Encephalopathy: Thrombocytopena BRAD possible secondary to Ischemic ATN: . Nephrology following. Patient on HF management at home. Will discuss resuming Lasix PLAN: Continue supportive care Renal function slightly worse, ?secondary to transient hypotension vs Vancomycin, through level within normal limit. Continue to monitor No abnormality per Neurology Improving mental status Awaiting BMP for today Cultures are negative so far VAP bundle Vent management per [employer] Replace electrolytes, sodium BETTER The patient son informs me the patient has been very lethargic for a few weeks now and has been mostly in bed. She is the primary care fiver for her who is battling metastatic disease Spoke to family at bedside DVT Prophy with SCD considering low plt The high probability of a clinically significant, sudden or life threatening deterioration of the [Neuro, cardiac, respiratory, renal] system(s) required my full and direct attention, intervention and personal management. The aggregate critical care time was [35] minutes. This time is in addition to time spent performing reported procedures but includes the following: [x] Data Review and interpretation [x] Patient assessment and monitoring of vital signs [x] Documentation [x] Medication orders and management History Interval history: Patient seen and examined, remains on full ventilatory support. slowly showing some improvement opens eyes to name and moves hads, Hospitalist Physical - Physical exam Narrative exam: VITAL SIGNS: Reviewed. GENERAL: intubated and on mechanical ventilation, opens eyes to name. Vital signs as documented. HEAD: No signs of head trauma. EYES: Pupils are equal. EARS: unable to assess MOUTH: ETT in place NECK: No adenopathy, no JVD. CHEST: Chest with diminished breath sounds bilaterally. No wheezes, rales, or rhonchi. CARDIAC: Regular rate and rhythm. S1 and S2, without murmurs, gallops, or r ubs. VASCULAR: Bilateral upper ext Edema. Peripheral pulses normal and equal in all extremities. ABDOMEN: Soft, non tender and non distended. No rebound or guarding, and no masses palpated. Bowel Sounds normal. MUSCULOSKELETAL: unable to examine, bilateral upper ext non pitting edema NEUROLOGIC EXAM: Intubated PSYCHIATRIC: Mood normal. SKIN: age appropriate skin blemishes - Constitutional Vitals: Temp Pulse Resp BP Pulse Ox 98.7 F 86 16 146/60 99 11/10/18 08:00 11/10/18 09:00 11/10/18 09:00 11/10/18 09:00 11/10/18 09:00 General appearance: Present: severe distress Results - Labs CBC & Chem 7: 11/11/18 05:01 11/11/18 05:01 Labs: Laboratory Last Values WBC 3.6 K/mm3 (4.5-11.0) L 11/09/18 04:12 RBC 2.99 M/mm3 (3.65-5.03) L 11/09/18 04:12 Hgb 8.8 gm/dl (10.1-14.3) L 11/09/18 04:12 Hct 26.9 % (30.3-42.9) L 11/09/18 04:12 MCV 90 fl (79-97) 11/09/18 04:12 MCH 30 pg (28-32) 11/09/18 04:12 MCHC 33 % (30-34) 11/09/18 04:12 RDW 14.3 % (13.2-15.2) 11/09/18 04:12 Plt Count 81 K/mm3 (140-440) L 11/09/18 04:12 Lymph % (Auto) 23.8 % (13.4-35.0) 11/06/18 04:09 [place] % (Auto) 13.2 % (0.0-7.3) H 11/06/18 04:09 Eos % (Auto) 0.0 % (0.0-4.3) 11/06/18 04:09 Baso % (Auto) 0.3 % (0.0-1.8) 11/06/18 04:09 Lymph # 1.0 K/mm3 (1.2-5.4) L 11/06/18 04:09 [place] # 0.6 K/mm3 (0.0-0.8) 11/06/18 04:09 Eos # 0.0 K/mm3 (0.0-0.4) 11/06/18 04:09 Baso # 0.0 K/mm3 (0.0-0.1) 11/06/18 04:09 Seg Neutrophils % 62.7 % (40.0-70.0) 11/06/18 04:09 Seg Neutrophils # 2.7 K/mm3 (1.8-7.7) 11/06/18 04:09 POC ABG pH 7.332 (7.35-7.45) L 11/10/18 03:57 POC ABG pCO2 35.6 (35-45) 11/10/18 03:57 POC ABG pO2 91 (80-105) 11/10/18 03:57 POC ABG HCO3 18.8 (22-26 mml/L) 11/10/18 03:57 POC ABG Total CO2 20 (23-27mmol/L) 11/10/18 03:57 POC ABG O2 Sat 97 11/10/18 03:57 POC ABG Base Excess -7 ((-2) - (+3)mmol/L) 11/10/18 03:57 35 % 11/10/18 03:57 Sodium 143 mmol/L (137-145) 11/09/18 04:12 Potassium 4.0 mmol/L (3.6-5.0) 11/09/18 04:12 Chloride 114.8 mmol/L (98-107) H 11/09/18 04:12 Carbon Dioxide 20 mmol/L (22-30) L 11/09/18 04:12 12 mmol/L 11/09/18 04:12 BUN 28 mg/dL (7-17) H 11/09/18 04:12 1.9 mg/dL (0.7-1.2) H 11/09/18 04:12 Estimated GFR 25 ml/min 11/09/18 04:12 15 % 11/09/18 04:12 Glucose 144 mg/dL (65-100) H 11/09/18 04:12 POC Glucose 201 (70-105) H 11/10/18 00:45 Lactic Acid 0.70 mmol/L (0.7-2.0) 11/09/18 04:12 Calcium 8.2 mg/dL (8.4-10.2) L 11/09/18 04:12 Phosphorus 3.00 mg/dL (2.5-4.5) D 11/08/18 04:27 Magnesium 2.20 mg/dL (1.7-2.3) 11/05/18 16:31 0.50 mg/dL (0.1-1.2) 11/06/18 04:09 AST 18 units/L (5-40) 11/06/18 04:09 ALT 14 units/L (7-56) 11/06/18 04:09 44 units/L (35-129) 11/06/18 04:09 44.0 umol/L (25-60) 11/05/18 17:28 < 7 units/L (30-135) L 11/05/18 16:31 0.019 ng/mL (0.00-0.029) 11/05/18 16:31 3.50 mg/dL (0.00-1.30) H 11/07/18 15:48 5.7 g/dL (6.3-8.2) L 11/06/18 04:09 3.1 g/dL (3.9-5) L 11/06/18 04:09 1.2 % 11/06/18 04:09 TSH 0.972 mlU/mL (0.270-4.200) 11/05/18 16:31 Yellow (Yellow) 11/05/18 20:47 Slightly-cloudy (Clear) 11/05/18 20:47 5.0 (5.0-7.0) 11/05/18 20:47 Ur Specific [place] 1.016 (1.003-1.030) 11/05/18 20:47 100 mg/dl mg/dL (Negative) 11/05/18 20:47 50 mg/dL (Negative) 11/05/18 20:47 Neg mg/dL (Negative) 11/05/18 20:47 Sm (Negative) 11/05/18 20:47 Pos (Negative) 11/05/18 20:47 Neg (Negative) 11/05/18 20:47 < 2.0 mg/dL (<2.0) 11/05/18 20:47 Ur Leukocyte Esterase Tr (Negative) 11/05/18 20:47 19.0 /HPF (0.0-6.0) H 11/05/18 20:47 4.0 /HPF (0.0-6.0) 11/05/18 20:47 U Epithel Cells (Auto) 1.0 /HPF (0-13.0) 11/05/18 20:47 Few /HPF 11/05/18 20:47 None seen (None Seen) 11/06/18 14:48 155.8 mg/dL (0.1-20.0) H 11/06/18 Unknown 40 mmol/L 11/06/18 Unknown 68 mg/dL (5-11.8) H 11/06/18 Unknown Vancomycin Trough 17.5 ug/mL (5.0-20.0) 11/08/18 21:16 Salicylates < 0.3 mg/dL (2.8-20.0) L 11/05/18 16:31 Acetaminophen < 5.0 ug/mL (10.0-30.0) L 11/05/18 16:31 Plasma/Serum Alcohol < 0.01 % (0-0.07) 11/05/18 16:31 Active Medications - Current Medications Current Medications: Generic Name Dose Route Start Last Admin Trade Name Freq PRN Reason Stop Dose Admin Albuterol 2.5 mg 11/05/18 17:52 Proventil IH Q3HRT PRN Shortness Of Breath Lipase/Protease/Amylase 1 each 11/07/18 11:07 Pancreaze 10,500 Unit FEEDTUBE PRN PRN For Clogged Feeding Tube Carvedilol 6.25 mg 11/09/18 11:00 11/09/18 22:32 Coreg PO 6.25 mg BID NIKKO Administration Dextrose 50 ml 11/05/18 17:59 D50w (25gm) Syringe IV PRN PRN Hypoglycemia Famotidine 20 mg 11/06/18 10:00 11/09/18 09:18 Pepcid IV 20 mg DAILY NIKKO Administration Fentanyl 50 mcg 11/05/18 16:21 11/08/18 04:48 Sublimaze IV 50 mcg Q10MIN PRN Administration ANALGESIA Gabapentin 800 mg 11/08/18 10:00 11/09/18 22:32 Neurontin PO 800 mg BID NIKKO Administration Hydralazine HCl 10 mg 11/05/18 21:30 11/08/18 04:53 Apresoline IV 10 mg Q6HR PRN Administration Hypertension Hydrophilic Ointment 1 applic 11/05/18 16:21 Vaseline Lip Therapy TP Q2HR PRN Dry Lips Fentanyl Citrate 2,000 mcg in 100 mls @ 3.485 mls/hr 11/05/18 17:00 11/09/18 04:43 Fentanyl Drip Premix IV 0 mcg/kg/hr TITR NIKKO 0 mls/hr Titration Protocol 1 MCG/KG/HR Lorazepam 100 mg/ Sodium 100 mls @ 1 mls/hr 11/05/18 17:00 11/07/18 08:23 Chloride/ Miscellaneous IV 0 mg/hr Information TITR NIKKO 0 mls/hr Titration Protocol 1 MG/HR Cefepime HCl 1 gm in 100 mls @ 200 mls/hr 11/06/18 14:00 11/09/18 22:29 Maxipime/Ns 1 Gm/100 Ml IV 200 mls/hr Q12HR NIKKO Administration Protocol Vancomycin HCl 1 gm in 250 mls @ 166.667 mls/hr 11/06/18 22:00 11/09/18 22:29 Vancomycin/Ns 1 Gm/250 Ml IV 166.667 mls/hr Q24H NIKKO Administration Insulin Human Lispro 0 unit 11/06/18 12:00 11/10/18 06:53 Humalog SUB-Q Not Given Q6HR [facility] Protocol Latanoprost 1 drops 11/08/18 18:00 11/09/18 18:26 Latanoprost 0.005% OU 1 drops QPM NIKKO Administration Lorazepam 2 mg 11/05/18 16:21 11/08/18 04:47 Ativan IV 2 mg Q10MIN PRN Administration Agitation Miscellaneous Medication 1 drop 11/08/18 22:00 11/09/18 22:28 Brimonidine Tartate OP 1 drop BID NIKKO Administration Multi-Ingred Cream/Lotion/Oil/Oint 1 applic 11/05/18 16:21 Artificial Tears Ophth Oint OU Q4HR PRN Dry Eye(s) Potassium Phos/Sodium Phos 2 each 11/07/18 18:00 11/10/18 07:17 Phos-Nak PO 2 each Q6HR NIKKO Administration Pravastatin Sodium 20 mg 11/08/18 10:00 11/09/18 09:19 Pravachol PO 20 mg DAILY NIKKO Administration Ropinirole HCl 1 mg 11/08/18 09:00 11/09/18 20:44 Requip PO 1 mg TID NIKKO Administration Simple Syrup 15 ml 11/07/18 11:07 Simple Syrup FEEDTUBE PRN PRN Hypoglycemia Simple Syrup 30 ml 11/07/18 11:07 Simple Syrup FEEDTUBE PRN PRN Hypoglycemia Sodium Bicarbonate 325 mg 11/07/18 11:07 Sodium Bicarbonate FEEDTUBE PRN PRN For Clogged Feeding Tube Sodium Chloride 10 ml 11/05/18 22:00 11/09/18 22:27 Sodium Chloride Flush Syringe 10 Ml IV 10 ml BID NIKKO Administration Sodium Chloride 10 ml 11/05/18 17:52 Sodium Chloride Flush Syringe 10 Ml IV PRN PRN LINE FLUSH Nutrition/Malnutrition Assess - Dietary Evaluation Nutrition/Malnutrition Findings: Nutrition Notes Start: 11/06/18 16:18 Freq: Status: Active Protocol: Document 11/07/18 13:39 LP (Rec: 11/07/18 14:04 LP [id number]) Nutrition Notes Initial or Follow up Reassessment Current Diagnosis Acute Kidney Injury, Respiratory Failure Other Pertinent Diagnosis Encephalopathy Current Diet NPO Labs/Tests Reviewed Pertinent Medications Reviewed Height 5 ft 5 in Weight 69.7 kg [place] Body Weight (kg) 56.81 BMI 25.5 Subjective/Other Information Consult for TF. Pt continues on vent. Burn Absent Trauma Absent #1 Nutrition Diagnosis Inadequate oral intake Diagnosis Progress(for reassessment Continues documentation) Is patient on ventilator? Yes Is Patient Ambulatory and/or Out of Bed No REE-(Hurt-St. Jeor-confined to bed) 1390.584 Calculation Used for Recommendations [facility] Additional Notes Protein Needs: 84-139g (1.2-2g /kg) Fluid Needs: 1 ml/kcal Nutrition Intervention Change Diet Order: TF Nutrition Support: Promote at 55ml/hr Flush with 50ml q4h Kcal 1,320 Protein (gm) 83 Fluid (mL) 1,107 Goal #1 Meet at least 80% of kcal and protein needs Anticipated Discharge Needs: Unable to determine at this time Follow-Up By: 11/11/18 Additional Comments Follow for TF start/tolerance
[2018-11-10] MEDS: MAXIPIME/NS 1 GM/100 ML 1 GM/100 ML BAG IV SCH ×2 (09:40→21:53)
[2018-11-10] MEDS: COREG PO SCH ×2 (09:40→21:54)
[2018-11-10] MEDS: PRAVACHOL PO SCH (09:40)
[2018-11-10] MEDS: NEURONTIN PO SCH ×2 (09:40→21:54)
[2018-11-10] MEDS: SODIUM CHLORIDE FLUSH SYRINGE 10 ML IV SCH ×2 (09:41→21:55)
[2018-11-10] MEDS: BRIMONIDINE OP SCH ×2 (09:42→21:57)
[2018-11-10 10:21] LABS: Basophils % (Auto) 0.3 % (0.0-1.8); Eosinophils # (Auto) 0.1 K/mm3 (0.0-0.4); Eosinophils % (Auto) 1.6 % (0.0-4.3); Hematocrit 30.9 % (30.3-42.9); Hemoglobin 10.1 gm/dl (10.1-14.3); Lymphocytes # (Auto) 0.6 K/mm3 (1.2-5.4); Lymphocytes % (Auto) 13.4 % (13.4-35.0); Mean Corpuscular HGB Conc 33 % (30-34); Mean Corpuscular Volume 89 fl (79-97); Monocytes # (Auto) 0.7 K/mm3 (0.0-0.8); Monocytes % (Auto) 14.8 % (0.0-7.3); Platelet Count 103 K/mm3 (140-440); Red Blood Count 3.48 M/mm3 (3.65-5.03); Red Cell Distribution Width 14.1 % (13.2-15.2)
[2018-11-10 10:31] LABS: Calcium 9.3 mg/dL (8.4-10.2)
--- NOTE | 2018-11-10 10:39 | Progress Note ---
Assessment and Plan Cultures: 11/05/2018 blood culture: 2/4 bottles (both sets) with Staph hominis 11/05/2018 urine culture: skin jama 11/05/2018 resp culture: oropharyngeal contamination. 11/06/2018 tracheal aspirate: MSSA 11/07/2018 blood culture: negative A/P: 82-year-old female with hypertension, heart disease, hyperlipidemia, neuropathy who has been living with her and was his primary caregiver and apparently had not been feeling well for the last 1 week, now admitted with AMS: 1) Sepsis: Fever on admission, lactic acidosis. No leukocytosis. Chest x-ray without evidence of pneumonia. UA with minimal pyuria, doubt UTI. Also with Staph hominis bacteremia. 2) Lactic acidosis: Lactate improved. CT abdomen and pelvis without contrast showed no acute endings. 3) Acute encephalopathy: Neurology following. ?related to seizures. MRI negative for acute process. [employer] infectious process seems less likely, but will rule out meningoencephalitis. 4) BRAD v/s CKD: Renally dose antibiotics. 5) Staph hominis bacteremia: 2/4 bottles (both sets) with GPC in clusters. TTE unremarkable for valvular vegetations. Continue Vancomycin for 7 days. Repeat blood cultures negative. 6) MSSA in resp cultures: CXR without pneumonia. Recent CXRs more suggestive of atelectasis and possible b/l effusions. Recs: will order LP to eval for meningoencephalitis (though seems less likely, no leptomeningeal enhancement seen on MRI). CSF studies ordered continue IV vancomycin, renally adjusted x 7 days from bacteremia clearance (ending 11/14/2018) D/W son at bedside. D/W Dr. Miller. Tia Farah MD, FACP [facility] ([facility]) C: [phone] O: [phone] F: [phone] Subjective Date of service: 11/10/18 Principal diagnosis: Ac hypoxemic Resp Failure ; Possible Seizure; Ac. Met E ncephalopathy; BRAD Interval history: Remains afebrile. Slowly waking up per RN. Remains on the vent. Doesn't follow commands, no purposeful movements. Objective - Exam Narrative Exam: Physical Exam: Constitutional: opens eyes, doesn't follow commands, intubated Head, Ears, Nose: Normocephalic, atraumatic. External ears, nose normal Eyes: Conjunctivae/corneas clear. No icterus. No ptosis. Neck: Supple, intubated Oral: intubated Cardiovascular: S1, S2 normal. Respiratory: Good air entry, clear to auscultation bilaterally GI: Soft, non-tender; bowel sounds normal. No peritoneal signs Musculoskeletal: No pedal edema, no cyanosis. Skin: No rash or abscess Hem/Lymphatic: No palpable cervical or supraclavicular nodes. No lymphangitis Psych: calm, no agitation Neurological: opens eyes, doesn't follow commands, intubated, on vent - Constitutional Vitals: Vital Signs Temp Pulse Resp BP Pulse Ox 98.7 F 90 16 166/58 100 11/10/18 08:00 11/10/18 09:40 11/10/18 09:00 11/10/18 09:40 11/10/18 09:28 Temperature -Last 24 Hours Temperature 98.7 F Temperature 98.2 F Temperature 98.2 F Temperature 97.8 F Temperature 97.8 F - Labs CBC & Chem 7: 11/10/18 09:52 11/10/18 09:52 Labs: Abnormal lab results 11/09/18 11/09/18 11/10/18 Range/Units 12:59 17:59 00:45 RBC (3.65-5.03) M/mm3 Plt Count (140-440) K/mm3 [place] % (Auto) (0.0-7.3) % Lymph # (1.2-5.4) K/mm3 POC ABG pH (7.35-7.45) Chloride (98-107) mmol/L Carbon Dioxide (22-30) mmol/L BUN (7-17) mg/dL Creatinine (0.7-1.2) mg/dL Glucose (65-100) mg/dL POC Glucose 175 H 116 H 201 H (70-105) 11/10/18 11/10/18 11/10/18 Range/Units 03:57 09:52 09:52 RBC 3.48 L (3.65-5.03) M/mm3 Plt Count 103 L (140-440) K/mm3 [place] % (Auto) 14.8 H (0.0-7.3) % Lymph # 0.6 L (1.2-5.4) K/mm3 POC ABG pH 7.332 L (7.35-7.45) Chloride 109.3 H (98-107) mmol/L Carbon Dioxide 21 L (22-30) mmol/L BUN 36 H (7-17) mg/dL Creatinine 2.1 H (0.7-1.2) mg/dL Glucose 134 H (65-100) mg/dL POC Glucose (70-105) - Imaging and cardiology MRI - head: report reviewed, image reviewed (paranasal sinus disease. Chronic age related changes, no acute findings noted.)
--- NOTE | 2018-11-10 15:06 | Progress Note ---
Assessment and Plan Acute Respiratory Failure with Hypoxia Gram positive bacteremia (in clusters) Possible Seizure Lactic Acidosis Hypernatermia Acute Metabolic Encephalopathy BRAD possible secondary to Ischemic ATN Thrombocytopenia Hypokalemia - continue daytime PSV and allow improvement in mental status - continue daily SAT's and SBT's as tolerated (Ventilation is suboptimal with pH of 7.33 but AMS is improving slowly)[rest on AC qhs] - continue to avoid sedatives - tentative extubation tomorrow - follow HIT assay - s/p IVNS 500 mls bolus - reduced Coreg to 12.5 mg bid - MRI negative for acute process - 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% (no vegetations) - EEG report pending - discontinued mckoy catheter - continue bronchodilators with pulmonary hygiene per RT - complete antibiotics per ID rec's - continue enteral nutrition as tolerated - continue supplemental oxygen as needed to keep O2 sat's > 90% - continue lung protective strategies - daily CXR and ABG in short term - VAP bundle addressed - continue accuchecks with glycemic control per SSI for target blood glucose <180mg/dL - Agitation management - Titrate sedation to RASS 0 to -1 - Prevention of delirium, maintenance of sleep-wake cycle - Azotemia per nephrology; continue gentle hydration - Avoid nephrotoxic agents, adjust all antibiotics and medications for CrCL and GFR - VTE and Stress ulcer prophylaxis - continue other care per attending / other consultants .... careplan discussed at length with family at bedside ... re-evaluate in am & prn CONDITION: CRITICAL PROGNOSIS: GRAVE to GUARDED CODE STATUS: FULL CODE The high probability of a clinically significant, sudden or life-threatening deterioration of the [respiratory, cardiac and neurologic] system(s) required my full and direct attention, intervention and personal management. The aggregate critical care time was [35] minutes without overlap. Time includes spent on; [x] Data Review and interpretation [x] Patient assessment and monitoring of vital signs [x] Documentation [x] Medication orders and management Subjective Date of service: 11/10/18 Principal diagnosis: Ac hypoxemic Resp Failure ; Possible Seizure; Ac. Met Encephalopathy; BRAD Interval history: Patient is seen today for: Acute Respiratory Failure with Hypoxemia; Gram positive bacteremia (in clusters); Possible Seizure; Lactic Acidosis; Hy pernatermia; Acute Metabolic Encephalopathy; BRAD possible secondary to Ischemic ATN Seen and examined at bedside; 24hour events reviewed; nursing and respiratory care staff consulted; no adverse overnight events reported to me; resting peacefully in bed; still somnolent but now following prompts appropriately; on PSV and tolerating well so far; No N/V/F/C Objective Vital Signs - 12hr 11/10/18 11/10/18 11/10/18 03:57 04:00 04:21 Temperature 98.2 F Pulse Rate 81 85 82 Respiratory 20 Rate Blood Pressure 133/49 143/55 O2 Sat by Pulse 100 100 Oximetry 11/10/18 11/10/18 11/10/18 04:23 05:00 06:00 Temperature Pulse Rate 87 87 Respiratory 16 16 15 Rate Blood Pressure 164/43 94/52 O2 Sat by Pulse 100 100 100 Oximetry 11/10/18 11/10/18 11/10/18 07:00 08:00 09:00 Temperature 98.7 F Pulse Rate 80 90 86 Respiratory 14 16 16 Rate Blood Pressure 131/46 141/64 146/60 O2 Sat by Pulse 100 100 99 Oximetry 11/10/18 11/10/18 11/10/18 09:28 09:40 10:00 Temperature Pulse Rate 91 H 90 90 Respiratory 25 H 24 Rate Blood Pressure 166/58 166/58 166/66 O2 Sat by Pulse 100 98 Oximetry 11/10/18 11/10/18 11/10/18 11:00 12:00 12:11 Temperature 98.6 F Pulse Rate 74 75 74 Respiratory 21 22 15 Rate Blood Pressure 118/46 125/47 125/47 O2 Sat by Pulse 100 99 100 Oximetry 11/10/18 11/10/18 13:00 14:01 Temperature Pulse Rate 79 88 Respiratory 17 25 H Rate Blood Pressure 131/49 133/53 O2 Sat by Pulse 98 Oximetry Constitutional: appears uncomfortable, other (elderly looking CF, normocephalic and astraumatic with mildly increased respiratory effort on MVS) Eyes: non-icteric ENT: oropharynx moist, other (ETT 23 cm JORDAN) Neck: supple, no lymphadenopathy, no JVD, other (no thyromegaly) Effort: mildly labored Ascultation: Bilateral: diminished breath sounds, rhonchi (bases) Percussion: Bilateral: not dull Cardiovascular: regular rate and rhythm, murmur noted (systolic) Gastrointestinal: normoactive bowel sounds, soft, non-tender, non-distended Integumentary: normal Extremities: no cyanosis, no edema, pink and warm, pulses normal, no ischemia or petechiae Neurologic: non-focal exam (grossly), pupils equal and round, CN II-XII normal, unable to assess Psychiatric: other (unable to assess re: AMS) CBC and BMP: 11/11/18 05:01 11/11/18 05:01 ABG, PT/INR, D-dimer: ABG POC ABG pH 7.332 (7.35-7.45) L 11/10/18 03:57 POC ABG pCO2 35.6 (35-45) 11/10/18 03:57 POC ABG pO2 91 (80-105) 11/10/18 03:57 POC ABG HCO3 18.8 (22-26 mml/L) 11/10/18 03:57 POC ABG Total CO2 20 (23-27mmol/L) 11/10/18 03:57 POC ABG O2 Sat 97 11/10/18 03:57 Abnormal lab findings: Abnormal Labs 11/05/18 11/05/18 11/05/18 16:31 16:31 16:31 WBC RBC Hgb Hct Plt Count 139 L [place] % (Auto) Lymph # 0.7 L Seg Neutrophils % 78.8 H POC ABG pH POC ABG pCO2 POC ABG pO2 Sodium 148 H Potassium 3.2 L Chloride 110.6 H Carbon Dioxide 17 L BUN 18 H Creatinine 1.9 H Glucose 205 H POC Glucose Lactic Acid 8.20 H* Calcium 10.9 H Phosphorus Total Creatine Kinase C-Reactive Protein Total Protein Albumin 3.6 L Urine WBC (Auto) Urine Creatinine Urine Total Protein Salicylates Acetaminophen 11/05/18 11/05/18 11/05/18 16:31 16:31 16:31 WBC RBC Hgb Hct Plt Count [place] % (Auto) Lymph # Seg Neutrophils % POC ABG pH POC ABG pCO2 POC ABG pO2 Sodium Potassium Chloride Carbon Dioxide BUN Creatinine Glucose POC Glucose Lactic Acid Calcium Phosphorus Total Creatine Kinase < 7 L C-Reactive Protein Total Protein Albumin Urine WBC (Auto) Urine Creatinine Urine Total Protein Salicylates < 0.3 L Acetaminophen < 5.0 L 11/05/18 11/05/18 11/05/18 17:29 17:42 20:47 WBC RBC Hgb Hct Plt Count [place] % (Auto) Lymph # Seg Neutrophils % POC ABG pH POC ABG pCO2 33.4 L POC ABG pO2 136 H Sodium Potassium Chloride Carbon Dioxide BUN Creatinine Glucose POC Glucose Lactic Acid 3.30 H* Calcium Phosphorus Total Creatine Kinase C-Reactive Protein Total Protein Albumin Urine WBC (Auto) 19.0 H Urine Creatinine Urine Total Protein Salicylates Acetaminophen 11/05/18 11/05/18 11/06/18 20:47 22:42 04:09 WBC 4.4 L RBC Hgb Hct Plt Count 102 L [place] % (Auto) 13.2 H Lymph # 1.0 L Seg Neutrophils % POC ABG pH POC ABG pCO2 POC ABG pO2 Sodium Potassium Chloride Carbon Dioxide BUN Creatinine Glucose POC Glucose 121 H Lactic Acid Calcium Phosphorus Total Creatine Kinase C-Reactive Protein Total Protein Albumin Urine WBC (Auto) Urine Creatinine 166.9 H Urine Total Protein Salicylates Acetaminophen 11/06/18 11/06/18 11/06/18 04:09 05:05 07:31 WBC RBC Hgb Hct Plt Count [place] % (Auto) Lymph # Seg Neutrophils % POC ABG pH 7.509 H POC ABG pCO2 < 30 L POC ABG pO2 115 H Sodium 150 H Potassium 2.7 L* Chloride 118.2 H Carbon Dioxide 21 L BUN 21 H Creatinine 1.6 H Glucose 125 H POC Glucose Lactic Acid 2.50 H* Calcium Phosphorus Total Creatine Kinase C-Reactive Protein Total Protein 5.7 L Albumin 3.1 L Urine WBC (Auto) Urine Creatinine Urine Total Protein Salicylates Acetaminophen 11/06/18 11/06/18 11/06/18 12:04 16:21 18:04 WBC RBC Hgb Hct Plt Count [place] % (Auto) Lymph # Seg Neutrophils % POC ABG pH POC ABG pCO2 POC ABG pO2 Sodium Potassium 5.4 H D Chloride Carbon Dioxide BUN Creatinine Glucose POC Glucose 122 H 110 H Lactic Acid Calcium Phosphorus Total Creatine Kinase C-Reactive Protein Total Protein Albumin Urine WBC (Auto) Urine Creatinine Urine Total Protein Salicylates Acetaminophen 11/06/18 11/06/18 11/07/18 21:28 Unknown 04:02 WBC RBC Hgb Hct Plt Count [place] % (Auto) Lymph # Seg Neutrophils % POC ABG pH POC ABG pCO2 POC ABG pO2 Sodium 152 H Potassium Chloride 123.4 H Carbon Dioxide 20 L BUN 23 H Creatinine 1.5 H Glucose 111 H POC Glucose 125 H Lactic Acid Calcium Phosphorus 1.00 L Total Creatine Kinase C-Reactive Protein Total Protein Albumin Urine WBC (Auto) Urine Creatinine 155.8 H Urine Total Protein 68 H Salicylates Acetaminophen 11/07/18 11/07/18 11/07/18 09:07 11:05 15:48 WBC 4.1 L RBC 3.62 L Hgb Hct Plt Count 77 L [place] % (Auto) Lymph # Seg Neutrophils % POC ABG pH 7.314 L POC ABG pCO2 POC ABG pO2 Sodium Potassium Chloride Carbon Dioxide BUN Creatinine Glucose POC Glucose Lactic Acid Calcium Phosphorus Total Creatine Kinase C-Reactive Protein 3.50 H Total Protein Albumin Urine WBC (Auto) Urine Creatinine Urine Total Protein Salicylates Acetaminophen 11/08/18 11/08/18 11/08/18 04:27 05:29 12:27 WBC RBC Hgb Hct Plt Count [place] % (Auto) Lymph # Seg Neutrophils % POC ABG pH POC ABG pCO2 33.4 L POC ABG pO2 78 L Sodium 146 H Potassium Chloride 117.1 H Carbon Dioxide 18 L BUN 19 H Creatinine 1.6 H Glucose 111 H POC Glucose 108 H Lactic Acid Calcium Phosphorus Total Creatine Kinase C-Reactive Protein Total Protein Albumin Urine WBC (Auto) Urine Creatinine Urine Total Protein Salicylates Acetaminophen 11/08/18 11/08/18 11/08/18 12:27 18:11 23:50 WBC RBC Hgb Hct Plt Count [place] % (Auto) Lymph # Seg Neutrophils % POC ABG pH POC ABG pCO2 POC ABG pO2 Sodium Potassium Chloride Carbon Dioxide BUN Creatinine Glucose POC Glucose 188 H 126 H 149 H Lactic Acid Calcium Phosphorus Total Creatine Kinase C-Reactive Protein Total Protein Albumin Urine WBC (Auto) Urine Creatinine Urine Total Protein Salicylates Acetaminophen 11/09/18 11/09/18 11/09/18 03:32 04:12 04:12 WBC 3.6 L RBC 2.99 L Hgb 8.8 L Hct 26.9 L Plt Count 81 L [place] % (Auto) Lymph # Seg Neutrophils % POC ABG pH 7.329 L POC ABG pCO2 POC ABG pO2 Sodium Potassium Chloride 114.8 H Carbon Dioxide 20 L BUN 28 H Creatinine 1.9 H Glucose 144 H POC Glucose Lactic Acid Calcium 8.2 L Phosphorus Total Creatine Kinase C-Reactive Protein Total Protein Albumin Urine WBC (Auto) Urine Creatinine Urine Total Protein Salicylates Acetaminophen 0711/09/18 11/09/18 05:24 12:59 17:59 WBC RBC Hgb Hct Plt Count [place] % (Auto) Lymph # Seg Neutrophils % POC ABG pH POC ABG pCO2 POC ABG pO2 Sodium Potassium Chloride Carbon Dioxide BUN Creatinine Glucose POC Glucose 163 H 175 H 116 H Lactic Acid Calcium Phosphorus Total Creatine Kinase C-Reactive Protein Total Protein Albumin Urine WBC (Auto) Urine Creatinine Urine Total Protein Salicylates Acetaminophen 11/10/18 11/10/18 11/10/18 00:45 03:57 09:52 WBC RBC Hgb Hct Plt Count [place] % (Auto) Lymph # Seg Neutrophils % POC ABG pH 7.332 L POC ABG pCO2 POC ABG pO2 Sodium Potassium Chloride 109.3 H Carbon Dioxide 21 L BUN 36 H Creatinine 2.1 H Glucose 134 H POC Glucose 201 H Lactic Acid Calcium Phosphorus Total Creatine Kinase C-Reactive Protein Total Protein Albumin Urine WBC (Auto) Urine Creatinine Urine Total Protein Salicylates Acetaminophen 11/10/18 11/10/18 09:52 12:36 WBC RBC 3.48 L Hgb Hct Plt Count 103 L [place] % (Auto) 14.8 H Lymph # 0.6 L Seg Neutrophils % POC ABG pH POC ABG pCO2 POC ABG pO2 Sodium Potassium Chloride Carbon Dioxide BUN Creatinine Glucose POC Glucose 142 H Lactic Acid Calcium Phosphorus Total Creatine Kinase C-Reactive Protein Total Protein Albumin Urine WBC (Auto) Urine Creatinine Urine Total Protein Salicylates Acetaminophen Chest x-ray: image reviewed (small bilateral pleural effusions vs atelectasis) Allied health notes reviewed: nursing
[2018-11-10] MEDS: LATANOPROST 0.005% OU SCH (17:42)
[2018-11-11] MEDS: PHOS-NAK PO SCH ×3 (00:58→08:35)
[2018-11-11] MEDS: HumaLOG SUB-Q SCH ×5 (00:59→18:51)
--- NOTE | 2018-11-11 03:13 | XRay Report ---
CHEST 1 VIEW INDICATION / CLINICAL INFORMATION: follow up respiratory failure. COMPARISON: 11/10/2018 FINDINGS: SUPPORT DEVICES: Stable, satisfactory device positioning. HEART / MEDIASTINUM: No significant abnormality. LUNGS / PLEURA: Homogeneous density in the left lower hemithorax has become more prominent. Persistent mild hazy opacity in the right lower hemithorax. No pneumothorax. ADDITIONAL FINDINGS: No significant additional findings. IMPRESSION: 1. Increasing pleural-parenchymal opacity in the left lower hemithorax. Signer Name: Jimbo Mehta MD Signed: 11/11/2018 3:08 AM Workstation Name: [id number]
[2018-11-11 05:30] LABS: Hematocrit 27.7 % (30.3-42.9); Hemoglobin 9.1 gm/dl (10.1-14.3); Mean Corpuscular HGB Conc 33 % (30-34); Mean Corpuscular Volume 89 fl (79-97); Red Blood Count 3.11 M/mm3 (3.65-5.03); Red Cell Distribution Width 14.6 % (13.2-15.2)
[2018-11-11 05:31] LABS: Platelet Count 97 K/mm3 (140-440)
[2018-11-11 05:51] LABS: Calcium 9.2 mg/dL (8.4-10.2)
[2018-11-11] MEDS: REQUIP PO SCH ×2 (09:10→13:00)
--- NOTE | 2018-11-11 09:36 | Progress Note ---
Assessment and Plan Cultures: 11/05/2018 blood culture: 2/4 bottles (both sets) with Staph hominis 11/05/2018 urine culture: skin jama 11/05/2018 resp culture: oropharyngeal contamination. 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 Chest x-ray without evidence of pneumonia. UA with minimal pyuria, doubt UTI. Also with Staph hominis bacteremia. 2) Lactic acidosis: Lactate improved. CT abdomen and pelvis without contrast showed no acute endings. 3) Acute encephalopathy: Neurology following. ?related to seizures. MRI negative for acute process. [employer] infectious process seems less likely, but will rule out meningoencephalitis. Today she is more alert. 4) BRAD v/s CKD: Renally dose antibiotics, worsening. 5) Staph hominis bacteremia: 2/4 bottles (both sets) with GPC in clusters. TTE unremarkable for valvular vegetations. Continue Vancomycin for 7 days. Repeat blood cultures negative. 6) MSSA in resp cultures: CXR without pneumonia. Recent CXRs more suggestive of atelectasis and possible b/l effusions. Most recent CXR shows increased pleuro- parenchyma density in the LLL 7) Acute respiratory failure: on the vent now BIPAP 8) Pancytopenia: worsening counts ? meds Recs: LP to eval for meningoencephalitis (though seems less likely, no leptomeningeal enhancement seen on MRI). CSF studies ordered - pending continue IV vancomycin, renally adjusted x 7 days from bacteremia clearance (ending 11/14/2018) started on cefepime renally adjusted today monitor fever and CBC, consider Hem consult if counts continue to decrease request chest CT w/o contrast ? empyema / pneumonia Will follow Gema Stewart MD Infectious Diseases [employer] [facility] M [phone] O [phone] Subjective Date of service: 11/11/18 Principal diagnosis: Ac hypoxemic Resp Failure ; Possible Seizure; Ac. Met Encephalopathy; BRAD Interval history: Remains on the vent alert tmax 100.1 ROS unable to obtain due to intubation Objective - Exam Narrative Exam: General: alert follows commands intubated Head, Ears, Nose: Normocephalic, atraumatic. External ears, nose normal Eyes: Conjunctivae/corneas clear. No icterus. No ptosis. Neck: Supple, intubated Oral: intubated +OGT Cardiovascular: S1, S2 normal. Respiratory: coarse bs angelika GI: Soft, non-tender; bowel sounds normal. No peritoneal signs Musculoskeletal: No pedal edema, no cyanosis. Skin: No rash or abscess Hem/Lymphatic: No palpable cervical or supraclavicular nodes. No lymphangitis Psych: calm, no agitation Neurological: opens eyes, doesn't follow commands, intubated, on vent EJ - Constitutional Vitals: Vital Signs Temp Pulse Resp BP Pulse Ox 98.8 F 93 H 21 160/54 99 11/11/18 08:00 11/11/18 08:00 11/11/18 08:00 11/11/18 08:00 11/11/18 08:00 Temperature -Last 24 Hours Temperature 98.8 F Temperature 98.5 F Temperature 99.1 F Temperature 100.1 F Temperature 98.2 F Temperature 98.6 F - Labs CBC & Chem 7: 11/11/18 05:01 11/11/18 05:01 Labs: Abnormal lab results 11/10/18 11/10/18 11/10/18 Range/Units 06:45 09:52 09:52 WBC (4.5-11.0) K/mm3 RBC 3.48 L (3.65-5.03) M/mm3 Hgb (10.1-14.3) gm/dl Hct (30.3-42.9) % Plt Count 103 L (140-440) K/mm3 [place] % (Auto) 14.8 H (0.0-7.3) % Lymph # 0.6 L (1.2-5.4) K/mm3 Potassium (3.6-5.0) mmol/L Chloride 109.3 H (98-107) mmol/L Carbon Dioxide 21 L (22-30) mmol/L BUN 36 H (7-17) mg/dL Creatinine 2.1 H (0.7-1.2) mg/dL Glucose 134 H (65-100) mg/dL POC Glucose 148 H (70-105) 11/10/18 11/10/18 11/10/18 Range/Units 12:36 17:31 23:34 WBC (4.5-11.0) K/mm3 RBC (3.65-5.03) M/mm3 Hgb (10.1-14.3) gm/dl Hct (30.3-42.9) % Plt Count (140-440) K/mm3 [place] % (Auto) (0.0-7.3) % Lymph # (1.2-5.4) K/mm3 Potassium (3.6-5.0) mmol/L Chloride (98-107) mmol/L Carbon Dioxide (22-30) mmol/L BUN (7-17) mg/dL Creatinine (0.7-1.2) mg/dL Glucose (65-100) mg/dL POC Glucose 142 H 152 H 163 H (70-105) 11/11/18 11/11/18 11/11/18 Range/Units 05:01 05:01 05:34 WBC 4.1 L (4.5-11.0) K/mm3 RBC 3.11 L (3.65-5.03) M/mm3 Hgb 9.1 L (10.1-14.3) gm/dl Hct 27.7 L (30.3-42.9) % Plt Count 97 L (140-440) K/mm3 [place] % (Auto) (0.0-7.3) % Lymph # (1.2-5.4) K/mm3 Potassium 5.3 H (3.6-5.0) mmol/L Chloride 108.2 H (98-107) mmol/L Carbon Dioxide 21 L (22-30) mmol/L BUN 39 H (7-17) mg/dL Creatinine 2.2 H (0.7-1.2) mg/dL Glucose 155 H (65-100) mg/dL POC Glucose 159 H (70-105)
--- NOTE | 2018-11-11 10:11 | Progress Note ---
Assessment and Plan Acute Renal Failure likely secondary to ischemic ATN, no obstruction: Hypokalemia: Hypernatremia: -Cr cont to rise slowly, will add NS 75 cc/h -Baseline serum creatinine unknown -Hypernatremia - on free water flushes via OGT -Replete potassium -Renal US is negative for obstruction -Monitor I/O's -Avoid nephrotoxic agents -[place] Catheter: No (Purewick) -Renal plan d/w Dr Santiago Sepsis: -ID on board, follow cultures, on Abx, follow recs Acute encephalopathy: Possible Seizures -Neurology on board, f/u recs Acute Hypoxic Respiratory Failure: -Intubated as per Pulmonary Subjective Date of service: 11/11/18 Principal diagnosis: Ac hypoxemic Resp Failure ; Possible Seizure; Ac. Met Encephalopathy; BRAD Interval history: was in IR this AM Objective - Vital Signs Vital signs: Vital Signs - 12hr 11/10/18 11/10/18 11/10/18 22:51 23:00 23:05 Temperature Pulse Rate 83 82 81 Respiratory 15 14 14 Rate Blood Pressure 157/64 126/44 126/44 O2 Sat by Pulse 99 97 99 Oximetry 11/10/18 11/11/18 11/11/18 23:15 00:00 01:00 Temperature 99.1 F Pulse Rate 80 77 86 Respiratory 14 15 Rate Blood Pressure 126/44 120/42 133/47 O2 Sat by Pulse 99 97 99 Oximetry 11/11/18 11/11/18 11/11/18 02:00 03:00 03:14 Temperature Pulse Rate 86 89 87 Respiratory 13 18 Rate Blood Pressure 124/43 144/63 144/63 O2 Sat by Pulse 97 96 99 Oximetry 11/11/18 11/11/18 11/11/18 04:00 04:01 05:00 Temperature 98.5 F Pulse Rate 88 92 H 90 Respiratory 20 17 Rate Blood Pressure 141/62 153/54 O2 Sat by Pulse 98 98 Oximetry 11/11/18 11/11/18 11/11/18 06:00 07:00 07:53 Temperature Pulse Rate 88 91 H 88 Respiratory 12 18 20 Rate Blood Pressure 157/60 168/57 157/60 O2 Sat by Pulse 98 97 98 Oximetry 11/11/18 08:00 Temperature 98.8 F Pulse Rate 93 H Respiratory 21 Rate Blood Pressure 160/54 O2 Sat by Pulse 96 Oximetry - Lab 11/11/18 05:01 11/11/18 05:01 Most recent lab results Calcium 9.2 mg/dL (8.4-10.2) 11/11/18 05:01 Phosphorus 3.00 mg/dL (2.5-4.5) D 11/08/18 04:27 Magnesium 2.20 mg/dL (1.7-2.3) 11/05/18 16:31 155.8 mg/dL (0.1-20.0) H 11/06/18 Unknown 40 mmol/L 11/06/18 Unknown 68 mg/dL (5-11.8) H 11/06/18 Unknown Medications & Allergies - Medications Allergies/Adverse Reactions: Allergies aspirin Allergy (Verified 11/06/18 17:06) Unknown Home Medications: Home Medications Medication Instructions Recorded Confirmed Last Taken Type Carvedilol [Coreg] 25 mg PO BID 11/06/18 11/06/18 Unknown History Furosemide [Lasix TAB] 20 mg PO HS 11/06/18 11/06/18 Unknown History Furosemide [Lasix TAB] 40 mg PO QAM 11/06/18 11/06/18 Unknown History Gabapentin [Neurontin] 800 mg PO BID 11/06/18 11/06/18 Unknown History Pravastatin Sodium [Pravastatin] 20 mg PO DAILY 11/06/18 11/06/18 Unknown History Ropinirole HCl [Requip] 1 mg PO TID 11/06/18 11/06/18 Unknown History Brimonidine Tartrate [Brimonidine 1 drop OU BID 11/08/18 11/08/18 Unknown History Tartrate 0.2%] Active Medications: Generic Name Dose Route Start Last Admin Trade Name Freq PRN Reason Stop Dose Admin Albuterol 2.5 mg 11/05/18 17:52 Proventil IH Q3HRT PRN Shortness Of Breath Lipase/Protease/Amylase 1 each 11/07/18 11:07 Pancredoris Cruz 10,500 Unit FEEDTUBE PRN PRN For Clogged Feeding Tube Carvedilol 6.25 mg 11/09/18 11:00 11/10/18 21:54 Coreg PO 6.25 mg BID NIKKO Administration Dextrose 50 ml 11/05/18 17:59 D50w (25gm) Syringe IV PRN PRN Hypoglycemia Famotidine 20 mg 11/11/18 10:00 Pepcid PO DAILY NIKKO Fentanyl 50 mcg 11/05/18 16:21 11/08/18 04:48 Sublimaze IV 50 mcg Q10MIN PRN Administration ANALGESIA Gabapentin 800 mg 11/08/18 10:00 11/10/18 21:54 Neurontin PO 800 mg BID NIKKO Administration Hydralazine HCl 10 mg 11/05/18 21:30 11/08/18 04:53 Apresoline IV 10 mg Q6HR PRN Administration Hypertension Hydrophilic Ointment 1 applic 11/05/18 16:21 Vaseline Lip Therapy TP Q2HR PRN Dry Lips Fentanyl Citrate 2,000 mcg in 100 mls @ 3.485 mls/hr 11/05/18 17:00 11/09/18 04:43 Fentanyl Drip Premix IV 0 mcg/kg/hr TITR NIKKO 0 mls/hr Titration Protocol 1 MCG/KG/HR Lorazepam 100 mg/ Sodium 100 mls @ 1 mls/hr 11/05/18 17:00 11/07/18 08:23 Chloride/ Miscellaneous IV 0 mg/hr Information TITR NIKKO 0 mls/hr Titration Protocol 1 MG/HR Cefepime HCl 1 gm in 100 mls @ 200 mls/hr 11/11/18 22:00 Maxipime/Ns 1 Gm/100 Ml IV Q24H [facility] Protocol Insulin Human Lispro 0 unit 11/06/18 12:00 11/11/18 05:57 Humalog SUB-Q 1 unit Q6HR NIKKO Administration Protocol Latanoprost 1 drops 11/08/18 18:00 11/10/18 17:42 Latanoprost 0.005% OU 1 drops QPM NIKKO Administration Lorazepam 2 mg 11/05/18 16:21 11/08/18 04:47 Ativan IV 2 mg Q10MIN PRN Administration Agitation Miscellaneous Medication 1 drop 11/08/18 22:00 11/10/18 21:57 Brimonidine Tartate OP 1 drop BID NIKKO Administration Multi-Ingred Cream/Lotion/Oil/Oint 1 applic 11/05/18 16:21 Artificial Tears Ophth Oint OU Q4HR PRN Dry Eye(s) Pravastatin Sodium 20 mg 11/08/18 10:00 11/10/18 09:40 Pravachol PO 20 mg DAILY NIKKO Administration Ropinirole HCl 1 mg 11/08/18 09:00 11/10/18 20:20 Requip PO 1 mg TID NIKKO Administration Simple Syrup 15 ml 11/07/18 11:07 Simple Syrup FEEDTUBE PRN PRN Hypoglycemia Simple Syrup 30 ml 11/07/18 11:07 Simple Syrup FEEDTUBE PRN PRN Hypoglycemia Sodium Bicarbonate 325 mg 11/07/18 11:07 Sodium Bicarbonate FEEDTUBE PRN PRN For Clogged Feeding Tube Sodium Chloride 10 ml 11/05/18 22:00 11/10/18 21:55 Sodium Chloride Flush Syringe 10 Ml IV 10 ml BID NIKKO Administration Sodium Chloride 10 ml 11/05/18 17:52 Sodium Chloride Flush Syringe 10 Ml IV PRN PRN LINE FLUSH
[2018-11-11] MEDS: NEURONTIN PO SCH (10:19)
[2018-11-11] MEDS: PEPCID PO SCH (10:19)
[2018-11-11] MEDS: PRAVACHOL PO SCH (10:19)
[2018-11-11] MEDS: COREG PO SCH (10:20)
[2018-11-11] MEDS: BRIMONIDINE OP SCH (10:21)
[2018-11-11] MEDS: SODIUM CHLORIDE FLUSH SYRINGE 10 ML IV SCH (10:22)
[2018-11-11 10:33] LABS: INR 1.23 (0.87-1.13)
--- NOTE | 2018-11-11 12:16 | Procedure Note ---
Date of procedure: 11/11/18 Pre-op diagnosis: fever, acute encephalopathy Post-op diagnosis: same Procedure: flouro guided lumbar puncture Findings: scoliosis Anesthesia: local Surgeon: PRAKASH BUCHANAN Estimated blood loss: none Pathology: list (4 csf tubes, 5-6cc.) Specimen disposition: to lab Condition: stable
--- NOTE | 2018-11-11 12:21 | Progress Note ---
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% (no vegetations) - EEG report pending - discontinued mckoy catheter - continue bronchodilators with pulmonary hygiene per RT - complete antibiotics per ID rec's - continue enteral nutrition as tolerated - continue supplemental oxygen as needed to keep O2 sat's > 90% - continue lung protective strategies - daily CXR and ABG in short term - VAP bundle addressed - continue accuchecks with glycemic control per SSI for target blood glucose <180mg/dL - Agitation management - Titrate sedation to RASS 0 to -1 - Prevention of delirium, maintenance of sleep-wake cycle - Azotemia per nephrology; continue gentle hydration - Avoid nephrotoxic agents, adjust all antibiotics and medications for CrCL and GFR - VTE and Stress ulcer prophylaxis - continue other care per attending / other consultants .... careplan discussed at length with family at bedside ... re-evaluate in am & prn CONDITION: CRITICAL PROGNOSIS: GRAVE to GUARDED CODE STATUS: FULL CODE The high probability of a clinically significant, sudden or life-threatening deterioration of the [respiratory, cardiac and neurologic] system(s) required my full and direct attention, intervention and personal management. The aggregate critical care time was [32] minutes without overlap. Time includes spent on; [x] Data Review and interpretation [x] Patient assessment and monitoring of vital signs [x] Documentation [x] Medication orders and management Subjective Date of service: 11/11/18 Principal diagnosis: Ac hypoxemic Resp Failure ; Possible Seizure; Ac. Met Encephalopathy; BRAD Interval history: Patient is seen today for: Acute Respiratory Failure with Hypoxemia; Gram positive bacteremia (in clusters); Possible Seizure; Lactic Acidosis; Hypernatermia; Acute Metabolic Encephalopathy; BRAD possible secondary to Ischemic ATN Seen and examined at bedside; 24hour events reviewed; nursing and respiratory care staff consulted; no adverse overnight events reported to me; resting p eacefully in bed; mental status a little better; secretions manageable; no N/V/F/C; tolerating PSV trial and s/p Lumbar puncture Objective Vital Signs - 12hr 11/11/18 11/11/18 11/11/18 01:00 02:00 03:00 Temperature Pulse Rate 86 86 89 Respiratory 15 13 18 Rate Blood Pressure 133/47 124/43 144/63 O2 Sat by Pulse 99 97 96 Oximetry 11/11/18 11/11/18 11/11/18 03:14 04:00 04:01 Temperature 98.5 F Pulse Rate 87 88 92 H Respiratory 20 Rate Blood Pressure 144/63 141/62 O2 Sat by Pulse 99 98 Oximetry 11/11/18 11/11/18 11/11/18 05:00 06:00 07:00 Temperature Pulse Rate 90 88 91 H Respiratory 17 12 18 Rate Blood Pressure 153/54 157/60 168/57 O2 Sat by Pulse 98 98 97 Oximetry 11/11/18 11/11/18 11/11/18 07:53 08:00 09:00 Temperature 98.8 F Pulse Rate 88 93 H 96 H Respiratory 20 21 25 H Rate Blood Pressure 157/60 160/54 160/54 O2 Sat by Pulse 98 96 99 Oximetry 11/11/18 11/11/18 10:00 10:20 Temperature Pulse Rate 92 H 93 H Respiratory 23 Rate Blood Pressure 160/54 160/54 O2 Sat by Pulse 96 Oximetry Constitutional: appears uncomfortable, other (elderly looking CF, normocephalic and astraumatic with mildly increased respiratory effort on MVS) Eyes: non-icteric ENT: oropharynx moist, other (ETT 23 cm JORDAN) Neck: supple, no lymphadenopathy, no JVD, other (no thyromegaly) Effort: mildly labored Ascultation: Bilateral: diminished breath sounds, rhonchi (bases) Percussion: Bilateral: not dull Cardiovascular: regular rate and rhythm, murmur noted (systolic) Gastrointestinal: normoactive bowel sounds, soft, non-tender, non-distended Integumentary: normal Extremities: no cyanosis, no edema, pink and warm, pulses normal, no ischemia or petechiae Neurologic: non-focal exam (grossly), pupils equal and round, CN II-XII normal, unable to assess Psychiatric: other (unable to assess re: AMS) CBC and BMP: 11/12/18 04:28 11/12/18 04:28 ABG, PT/INR, D-dimer: ABG POC ABG pH 7.365 (7.35-7.45) 11/11/18 03:14 POC ABG pCO2 35.7 (35-45) 11/11/18 03:14 POC ABG pO2 100 (80-105) 11/11/18 03:14 POC ABG HCO3 20.4 (22-26 mml/L) 11/11/18 03:14 POC ABG Total CO2 21 (23-27mmol/L) 11/11/18 03:14 POC ABG O2 Sat 98 11/11/18 03:14 PT/INR, D-dimer PT 15.2 Sec. (12.2-14.9) H 11/11/18 10:03 INR 1.23 (0.87-1.13) H 11/11/18 10:03 Abnormal lab findings: Abnormal Labs 11/05/18 11/05/18 11/05/18 16:31 16:31 16:31 WBC RBC Hgb Hct Plt Count 139 L [place] % (Auto) Lymph # 0.7 L Seg Neutrophils % 78.8 H PT INR POC ABG pH POC ABG pCO2 POC ABG pO2 Sodium 148 H Potassium 3.2 L Chloride 110.6 H Carbon Dioxide 17 L BUN 18 H Creatinine 1.9 H Glucose 205 H POC Glucose Lactic Acid 8.20 H* Calcium 10.9 H Phosphorus Total Creatine Kinase C-Reactive Protein Total Protein Albumin 3.6 L Urine WBC (Auto) Urine Creatinine Urine Total Protein Salicylates Acetaminophen 11/05/18 11/05/18 11/05/18 16:31 16:31 16:31 WBC RBC Hgb Hct Plt Count [place] % (Auto) Lymph # Seg Neutrophils % PT INR POC ABG pH POC ABG pCO2 POC ABG pO2 Sodium Potassium Chloride Carbon Dioxide BUN Creatinine Glucose POC Glucose Lactic Acid Calcium Phosphorus Total Creatine Kinase < 7 L C-Reactive Protein Total Protein Albumin Urine WBC (Auto) Urine Creatinine Urine Total Protein Salicylates < 0.3 L Acetaminophen < 5.0 L 11/05/18 11/05/18 11/05/18 17:29 17:42 20:47 WBC RBC Hgb Hct Plt Count [place] % (Auto) Lymph # Seg Neutrophils % PT INR POC ABG pH POC ABG pCO2 33.4 L POC ABG pO2 136 H Sodium Potassium Chloride Carbon Dioxide BUN Creatinine Glucose POC Glucose Lactic Acid 3.30 H* Calcium Phosphorus Total Creatine Kinase C-Reactive Protein Total Protein Albumin Urine WBC (Auto) 19.0 H Urine Creatinine Urine Total Protein Salicylates Acetaminophen 11/05/18 11/05/18 11/06/18 20:47 22:42 04:09 WBC 4.4 L RBC Hgb Hct Plt Count 102 L [place] % (Auto) 13.2 H Lymph # 1.0 L Seg Neutrophils % PT INR POC ABG pH POC ABG pCO2 POC ABG pO2 Sodium Potassium Chloride Carbon Dioxide BUN Creatinine Glucose POC Glucose 121 H Lactic Acid Calcium Phosphorus Total Creatine Kinase C-Reactive Protein Total Protein Albumin Urine WBC (Auto) Urine Creatinine 166.9 H Urine Total Protein Salicylates Acetaminophen 11/06/18 11/06/18 11/06/18 04:09 05:05 07:31 WBC RBC Hgb Hct Plt Count [place] % (Auto) Lymph # Seg Neutrophils % PT INR POC ABG pH 7.509 H POC ABG pCO2 < 30 L POC ABG pO2 115 H Sodium 150 H Potassium 2.7 L* Chloride 118.2 H Carbon Dioxide 21 L BUN 21 H Creatinine 1.6 H Glucose 125 H POC Glucose Lactic Acid 2.50 H* Calcium Phosphorus Total Creatine Kinase C-Reactive Protein Total Protein 5.7 L Albumin 3.1 L Urine WBC (Auto) Urine Creatinine Urine Total Protein Salicylates Acetaminophen 11/06/18 11/06/18 11/06/18 12:04 16:21 18:04 WBC RBC Hgb Hct Plt Count [place] % (Auto) Lymph # Seg Neutrophils % PT INR POC ABG pH POC ABG pCO2 POC ABG pO2 Sodium Potassium 5.4 H D Chloride Carbon Dioxide BUN Creatinine Glucose POC Glucose 122 H 110 H Lactic Acid Calcium Phosphorus Total Creatine Kinase C-Reactive Protein Total Protein Albumin Urine WBC (Auto) Urine Creatinine Urine Total Protein Salicylates Acetaminophen 11/06/18 11/06/18 11/07/18 21:28 Unknown 04:02 WBC RBC Hgb Hct Plt Count [place] % (Auto) Lymph # Seg Neutrophils % PT INR POC ABG pH POC ABG pCO2 POC ABG pO2 Sodium 152 H Potassium Chloride 123.4 H Carbon Dioxide 20 L BUN 23 H Creatinine 1.5 H Glucose 111 H POC Glucose 125 H Lactic Acid Calcium Phosphorus 1.00 L Total Creatine Kinase C-Reactive Protein Total Protein Albumin Urine WBC (Auto) Urine Creatinine 155.8 H Urine Total Protein 68 H Salicylates Acetaminophen 11/07/18 11/07/18 11/07/18 09:07 11:05 15:48 WBC 4.1 L RBC 3.62 L Hgb Hct Plt Count 77 L [place] % (Auto) Lymph # Seg Neutrophils % PT INR POC ABG pH 7.314 L POC ABG pCO2 POC ABG pO2 Sodium Potassium Chloride Carbon Dioxide BUN Creatinine Glucose POC Glucose Lactic Acid Calcium Phosphorus Total Creatine Kinase C-Reactive Protein 3.50 H Total Protein Albumin Urine WBC (Auto) Urine Creatinine Urine Total Protein Salicylates Acetaminophen 11/08/18 11/08/18 11/08/18 04:27 05:29 12:27 WBC RBC Hgb Hct Plt Count [place] % (Auto) Lymph # Seg Neutrophils % PT INR POC ABG pH POC ABG pCO2 33.4 L POC ABG pO2 78 L Sodium 146 H Potassium Chloride 117.1 H Carbon Dioxide 18 L BUN 19 H Creatinine 1.6 H Glucose 111 H POC Glucose 108 H Lactic Acid Calcium Phosphorus Total Creatine Kinase C-Reactive Protein Total Protein Albumin Urine WBC (Auto) Urine Creatinine Urine Total Protein Salicylates Acetaminophen 11/08/18 11/08/18 11/08/18 12:27 18:11 23:50 WBC RBC Hgb Hct Plt Count [place] % (Auto) Lymph # Seg Neutrophils % PT INR POC ABG pH POC ABG pCO2 POC ABG pO2 Sodium Potassium Chloride Carbon Dioxide BUN Creatinine Glucose POC Glucose 188 H 126 H 149 H Lactic Acid Calcium Phosphorus Total Creatine Kinase C-Reactive Protein Total Protein Albumin Urine WBC (Auto) Urine Creatinine Urine Total Protein Salicylates Acetaminophen 11/09/18 11/09/18 11/09/18 03:32 04:12 04:12 WBC 3.6 L RBC 2.99 L Hgb 8.8 L Hct 26.9 L Plt Count 81 L [place] % (Auto) Lymph # Seg Neutrophils % PT INR POC ABG pH 7.329 L POC ABG pCO2 POC ABG pO2 Sodium Potassium Chloride 114.8 H Carbon Dioxide 20 L BUN 28 H Creatinine 1.9 H Glucose 144 H POC Glucose Lactic Acid Calcium 8.2 L Phosphorus Total Creatine Kinase C-Reactive Protein Total Protein Albumin Urine WBC (Auto) Urine Creatinine Urine Total Protein Salicylates Acetaminophen 11/09/18 11/09/18 11/09/18 05:24 12:59 17:59 WBC RBC Hgb Hct Plt Count [place] % (Auto) Lymph # Seg Neutrophils % PT INR POC ABG pH POC ABG pCO2 POC ABG pO2 Sodium Potassium Chloride Carbon Dioxide BUN Creatinine Glucose POC Glucose 163 H 175 H 116 H Lactic Acid Calcium Phosphorus Total Creatine Kinase C-Reactive Protein Total Protein Albumin Urine WBC (Auto) Urine Creatinine Urine Total Protein Salicylates Acetaminophen 11/10/18 11/10/18 11/10/18 00:45 03:57 06:45 WBC RBC Hgb Hct Plt Count [place] % (Auto) Lymph # Seg Neutrophils % PT INR POC ABG pH 7.332 L POC ABG pCO2 POC ABG pO2 Sodium Potassium Chloride Carbon Dioxide BUN Creatinine Glucose POC Glucose 201 H 148 H Lactic Acid Calcium Phosphorus Total Creatine Kinase C-Reactive Protein Total Protein Albumin Urine WBC (Auto) Urine Creatinine Urine Total Protein Salicylates Acetaminophen 11/10/18 11/10/18 11/10/18 09:52 09:52 12:36 WBC RBC 3.48 L Hgb Hct Plt Count 103 L [place] % (Auto) 14.8 H Lymph # 0.6 L Seg Neutrophils % PT INR POC ABG pH POC ABG pCO2 POC ABG pO2 Sodium Potassium Chloride 109.3 H Carbon Dioxide 21 L BUN 36 H Creatinine 2.1 H Glucose 134 H POC Glucose 142 H Lactic Acid Calcium Phosphorus Total Creatine Kinase C-Reactive Protein Total Protein Albumin Urine WBC (Auto) Urine Creatinine Urine Total Protein Salicylates Acetaminophen 11/10/18 11/10/18 11/11/18 17:31 23:34 05:01 WBC 4.1 L RBC 3.11 L Hgb 9.1 L Hct 27.7 L Plt Count 97 L [place] % (Auto) Lymph # Seg Neutrophils % PT INR POC ABG pH POC ABG pCO2 POC ABG pO2 Sodium Potassium Chloride Carbon Dioxide BUN Creatinine Glucose POC Glucose 152 H 163 H Lactic Acid Calcium Phosphorus Total Creatine Kinase C-Reactive Protein Total Protein Albumin Urine WBC (Auto) Urine Creatinine Urine Total Protein Salicylates Acetaminophen 11/11/18 11/11/18 11/11/18 05:01 05:34 10:03 WBC RBC Hgb Hct Plt Count [place] % (Auto) Lymph # Seg Neutrophils % PT 15.2 H INR 1.23 H POC ABG pH POC ABG pCO2 POC ABG pO2 Sodium Potassium 5.3 H Chloride 108.2 H Carbon Dioxide 21 L BUN 39 H Creatinine 2.2 H Glucose 155 H POC Glucose 159 H Lactic Acid Calcium Phosphorus Total Creatine Kinase C-Reactive Protein Total Protein Albumin Urine WBC (Auto) Urine Creatinine Urine Total Protein Salicylates Acetaminophen Chest x-ray: image reviewed (left pleural effusion / atelectasis; ETT in good position) Allied health notes reviewed: nursing
--- NOTE | 2018-11-11 12:25 | Progress Note ---
Subjective Date of service: 11/11/18 Principal diagnosis: Ac hypoxemic Resp Failure ; Possible Seizure; Ac. Met Encephalopathy; BRAD Interval history: see my note about the insignificance of small meningioma patient is waking up more each day and there are bola seziures I did go over this with family Objective - Vital Sign Vital Signs - 12hr 11/11/18 11/11/18 11/11/18 01:00 02:00 03:00 Temperature Pulse Rate 86 86 89 Respiratory 15 13 18 Rate Blood Pressure 133/47 124/43 144/63 O2 Sat by Pulse 99 97 96 Oximetry 11/11/18 11/11/18 11/11/18 03:14 04:00 04:01 Temperature 98.5 F Pulse Rate 87 88 92 H Respiratory 20 Rate Blood Pressure 144/63 141/62 O2 Sat by Pulse 99 98 Oximetry 11/11/18 11/11/18 11/11/18 05:00 06:00 07:00 Temperature Pulse Rate 90 88 91 H Respiratory 17 12 18 Rate Blood Pressure 153/54 157/60 168/57 O2 Sat by Pulse 98 98 97 Oximetry 11/11/18 11/11/18 11/11/18 07:53 08:00 09:00 Temperature 98.8 F Pulse Rate 88 93 H 96 H Respiratory 20 21 25 H Rate Blood Pressure 157/60 160/54 160/54 O2 Sat by Pulse 98 96 99 Oximetry 11/11/18 11/11/18 10:00 10:20 Temperature Pulse Rate 92 H 93 H Respiratory 23 Rate Blood Pressure 160/54 160/54 O2 Sat by Pulse 96 Oximetry - Laboratory Findings CBC and BMP: 11/11/18 05:01 11/11/18 05:01 Abnormal Lab Findings: Abnormal Labs 11/05/18 11/05/18 11/05/18 16:31 16:31 16:31 WBC RBC Hgb Hct Plt Count 139 L [place] % (Auto) Lymph # 0.7 L Seg Neutrophils % 78.8 H PT INR POC ABG pH POC ABG pCO2 POC ABG pO2 Sodium 148 H Potassium 3.2 L Chloride 110.6 H Carbon Dioxide 17 L BUN 18 H Creatinine 1.9 H Glucose 205 H POC Glucose Lactic Acid 8.20 H* Calcium 10.9 H Phosphorus Total Creatine Kinase C-Reactive Protein Total Protein Albumin 3.6 L Urine WBC (Auto) Urine Creatinine Urine Total Protein Salicylates Acetaminophen 11/05/18 11/05/18 11/05/18 16:31 16:31 16:31 WBC RBC Hgb Hct Plt Count [place] % (Auto) Lymph # Seg Neutrophils % PT INR POC ABG pH POC ABG pCO2 POC ABG pO2 Sodium Potassium Chloride Carbon Dioxide BUN Creatinine Glucose POC Glucose Lactic Acid Calcium Phosphorus Total Creatine Kinase < 7 L C-Reactive Protein Total Protein Albumin Urine WBC (Auto) Urine Creatinine Urine Total Protein Salicylates < 0.3 L Acetaminophen < 5.0 L 11/05/18 11/05/18 11/05/18 17:29 17:42 20:47 WBC RBC Hgb Hct Plt Count [place] % (Auto) Lymph # Seg Neutrophils % PT INR POC ABG pH POC ABG pCO2 33.4 L POC ABG pO2 136 H Sodium Potassium Chloride Carbon Dioxide BUN Creatinine Glucose POC Glucose Lactic Acid 3.30 H* Calcium Phosphorus Total Creatine Kinase C-Reactive Protein Total Protein Albumin Urine WBC (Auto) 19.0 H Urine Creatinine Urine Total Protein Salicylates Acetaminophen 11/05/18 11/05/18 11/06/18 20:47 22:42 04:09 WBC 4.4 L RBC Hgb Hct Plt Count 102 L [place] % (Auto) 13.2 H Lymph # 1.0 L Seg Neutrophils % PT INR POC ABG pH POC ABG pCO2 POC ABG pO2 Sodium Potassium Chloride Carbon Dioxide BUN Creatinine Glucose POC Glucose 121 H Lactic Acid Calcium Phosphorus Total Creatine Kinase C-Reactive Protein Total Protein Albumin Urine WBC (Auto) Urine Creatinine 166.9 H Urine Total Protein Salicylates Acetaminophen 11/06/18 11/06/18 11/06/18 04:09 05:05 07:31 WBC RBC Hgb Hct Plt Count [place] % (Auto) Lymph # Seg Neutrophils % PT INR POC ABG pH 7.509 H POC ABG pCO2 < 30 L POC ABG pO2 115 H Sodium 150 H Potassium 2.7 L* Chloride 118.2 H Carbon Dioxide 21 L BUN 21 H Creatinine 1.6 H Glucose 125 H POC Glucose Lactic Acid 2.50 H* Calcium Phosphorus Total Creatine Kinase C-Reactive Protein Total Protein 5.7 L Albumin 3.1 L Urine WBC (Auto) Urine Creatinine Urine Total Protein Salicylates Acetaminophen 11/06/18 11/06/18 11/06/18 12:04 16:21 18:04 WBC RBC Hgb Hct Plt Count [place] % (Auto) Lymph # Seg Neutrophils % PT INR POC ABG pH POC ABG pCO2 POC ABG pO2 Sodium Potassium 5.4 H D Chloride Carbon Dioxide BUN Creatinine Glucose POC Glucose 122 H 110 H Lactic Acid Calcium Phosphorus Total Creatine Kinase C-Reactive Protein Total Protein Albumin Urine WBC (Auto) Urine Creatinine Urine Total Protein Salicylates Acetaminophen 11/06/18 11/06/18 11/07/18 21:28 Unknown 04:02 WBC RBC Hgb Hct Plt Count [place] % (Auto) Lymph # Seg Neutrophils % PT INR POC ABG pH POC ABG pCO2 POC ABG pO2 Sodium 152 H Potassium Chloride 123.4 H Carbon Dioxide 20 L BUN 23 H Creatinine 1.5 H Glucose 111 H POC Glucose 125 H Lactic Acid Calcium Phosphorus 1.00 L Total Creatine Kinase C-Reactive Protein Total Protein Albumin Urine WBC (Auto) Urine Creatinine 155.8 H Urine Total Protein 68 H Salicylates Acetaminophen 11/07/18 11/07/18 11/07/18 09:07 11:05 15:48 WBC 4.1 L RBC 3.62 L Hgb Hct Plt Count 77 L [place] % (Auto) Lymph # Seg Neutrophils % PT INR POC ABG pH 7.314 L POC ABG pCO2 POC ABG pO2 Sodium Potassium Chloride Carbon Dioxide BUN Creatinine Glucose POC Glucose Lactic Acid Calcium Phosphorus Total Creatine Kinase C-Reactive Protein 3.50 H Total Protein Albumin Urine WBC (Auto) Urine Creatinine Urine Total Protein Salicylates Acetaminophen 11/08/18 11/08/18 11/08/18 04:27 05:29 12:27 WBC RBC Hgb Hct Plt Count [place] % (Auto) Lymph # Seg Neutrophils % PT INR POC ABG pH POC ABG pCO2 33.4 L POC ABG pO2 78 L Sodium 146 H Potassium Chloride 117.1 H Carbon Dioxide 18 L BUN 19 H Creatinine 1.6 H Glucose 111 H POC Glucose 108 H Lactic Acid Calcium Phosphorus Total Creatine Kinase C-Reactive Protein Total Protein Albumin Urine WBC (Auto) Urine Creatinine Urine Total Protein Salicylates Acetaminophen 11/08/18 11/08/18 11/08/18 12:27 18:11 23:50 WBC RBC Hgb Hct Plt Count [place] % (Auto) Lymph # Seg Neutrophils % PT INR POC ABG pH POC ABG pCO2 POC ABG pO2 Sodium Potassium Chloride Carbon Dioxide BUN Creatinine Glucose POC Glucose 188 H 126 H 149 H Lactic Acid Calcium Phosphorus Total Creatine Kinase C-Reactive Protein Total Protein Albumin Urine WBC (Auto) Urine Creatinine Urine Total Protein Salicylates Acetaminophen 11/09/18 11/09/18 11/09/18 03:32 04:12 04:12 WBC 3.6 L RBC 2.99 L Hgb 8.8 L Hct 26.9 L Plt Count 81 L [place] % (Auto) Lymph # Seg Neutrophils % PT INR POC ABG pH 7.329 L POC ABG pCO2 POC ABG pO2 Sodium Potassium Chloride 114.8 H Carbon Dioxide 20 L BUN 28 H Creatinine 1.9 H Glucose 144 H POC Glucose Lactic Acid Calcium 8.2 L Phosphorus Total Creatine Kinase C-Reactive Protein Total Protein Albumin Urine WBC (Auto) Urine Creatinine Urine Total Protein Salicylates Acetaminophen 11/09/18 11/09/18 11/09/18 05:24 12:59 17:59 WBC RBC Hgb Hct Plt Count [place] % (Auto) Lymph # Seg Neutrophils % PT INR POC ABG pH POC ABG pCO2 POC ABG pO2 Sodium Potassium Chloride Carbon Dioxide BUN Creatinine Glucose POC Glucose 163 H 175 H 116 H Lactic Acid Calcium Phosphorus Total Creatine Kinase C-Reactive Protein Total Protein Albumin Urine WBC (Auto) Urine Creatinine Urine Total Protein Salicylates Acetaminophen 11/10/18 11/10/18 11/10/18 00:45 03:57 06:45 WBC RBC Hgb Hct Plt Count [place] % (Auto) Lymph # Seg Neutrophils % PT INR POC ABG pH 7.332 L POC ABG pCO2 POC ABG pO2 Sodium Potassium Chloride Carbon Dioxide BUN Creatinine Glucose POC Glucose 201 H 148 H Lactic Acid Calcium Phosphorus Total Creatine Kinase C-Reactive Protein Total Protein Albumin Urine WBC (Auto) Urine Creatinine Urine Total Protein Salicylates Acetaminophen 11/10/18 11/10/18 11/10/18 09:52 09:52 12:36 WBC RBC 3.48 L Hgb Hct Plt Count 103 L [place] % (Auto) 14.8 H Lymph # 0.6 L Seg Neutrophils % PT INR POC ABG pH POC ABG pCO2 POC ABG pO2 Sodium Potassium Chloride 109.3 H Carbon Dioxide 21 L BUN 36 H Creatinine 2.1 H Glucose 134 H POC Glucose 142 H Lactic Acid Calcium Phosphorus Total Creatine Kinase C-Reactive Protein Total Protein Albumin Urine WBC (Auto) Urine Creatinine Urine Total Protein Salicylates Acetaminophen 11/10/18 11/10/18 11/11/18 17:31 23:34 05:01 WBC 4.1 L RBC 3.11 L Hgb 9.1 L Hct 27.7 L Plt Count 97 L [place] % (Auto) Lymph # Seg Neutrophils % PT INR POC ABG pH POC ABG pCO2 POC ABG pO2 Sodium Potassium Chloride Carbon Dioxide BUN Creatinine Glucose POC Glucose 152 H 163 H Lactic Acid Calcium Phosphorus Total Creatine Kinase C-Reactive Protein Total Protein Albumin Urine WBC (Auto) Urine Creatinine Urine Total Protein Salicylates Acetaminophen 11/11/18 11/11/18 11/11/18 05:01 05:34 10:03 WBC RBC Hgb Hct Plt Count [place] % (Auto) Lymph # Seg Neutrophils % PT 15.2 H INR 1.23 H POC ABG pH POC ABG pCO2 POC ABG pO2 Sodium Potassium 5.3 H Chloride 108.2 H Carbon Dioxide 21 L BUN 39 H Creatinine 2.2 H Glucose 155 H POC Glucose 159 H Lactic Acid Calcium Phosphorus Total Creatine Kinase C-Reactive Protein Total Protein Albumin Urine WBC (Auto) Urine Creatinine Urine Total Protein Salicylates Acetaminophen
--- NOTE | 2018-11-11 12:28 | Fluoroscopy Report ---
LUMBAR PUNCTURE INDICATION : Seizures, fever, acute encephalopathy PROCEDURE: The risks (including but not limited to bleeding, infection, and spinal headache) and alyssa efits were explained to the patient and informed consent was obtained. A time out procedure was perf ormed. The procedure site was prepped and draped in the usual sterile fashion and lidocaine was used for local anesthesia. Under fluoroscopic guidance, a 22-gauge spinal needle was advanced into the L2-3 interlaminar space. The opening pressure was 130 mm H2O which was calculated by adding the length of the needle (9 cm) to the height of the CSF column. 4 separate collection tubes were used to obtain CSF. Samples were sent to the lab per the ordering physician specifications for further evaluation. The patient tolerated the procedure well with no complications. IMPRESSION: Successful lumbar puncture as outlined above. Opening pressure was 130 mm H20. Fluoroscopic time: 1.6 minutes Number of fluoroscopic images: 1 Signer Name: Michael Rodgers Jr, MD Signed: 11/11/2018 12:23 PM Workstation Name: [id number]
[2018-11-11 12:41] LABS: Glucose,CSF 77 mg/dL
[2018-11-11] MEDS: NACL 0.9% 1000 ML 1,000 ML IV SCH (13:00)
[2018-11-11 13:36] LABS: Appearance,CSF Clear; Red Blood Cell,CSF 22 /mm3 (0-0); White Blood Cell,CSF 10 /mm3 (1-10)
[2018-11-11 13:42] LABS: Total Cells Counted 37 /mm3
[2018-11-11 13:43] LABS: Basophils CSF 0 %
--- NOTE | 2018-11-11 17:14 | Cat Scan Report ---
CT CHEST WITHOUT CONTRAST INDICATION / CLINICAL INFORMATION: Sepsis with fever and cough. TECHNIQUE: Axial CT images were obtained through the chest without contrast. All CT scans at this location are p erformed using CT dose reduction for ALARA by means of automated exposure control. COMPARISON: None available. FINDINGS: HEART: No significant abnormality. THORACIC AORTA: Extensive atherosclerotic calcification of the aortic arch and descending thoracic ao rta. MEDIASTINUM and AKIL: No significant abnormality. LUNGS: Patchy bibasilar airspace consolidation likely is artist representative of atelectasis. No definite e vidence of pneumonia within the upper lungs identified. The endotracheal tube remains in good positio n. PLEURA: Small bilateral pleural effusions, slightly larger on the left. ADDITIONAL FINDINGS: None. UPPER ABDOMEN: Although only partially visualized there appears to be hydronephrosis of the kidneys. Gallstones noted. The esophagogastric tube terminates within the stomach. SKELETAL SYSTEM: No significant abnormality. IMPRESSION: Small pleural effusions, left greater than right. Basilar consolidation is probably secondary to atel ectasis and less likely pneumonia. The remainder of the lungs appear clear. Signer Name: Aleksandr Ga MD Signed: 11/11/2018 5:10 PM Workstation Name: [id number]
[2018-11-11] MEDS: LATANOPROST 0.005% OU SCH (18:50)
--- NOTE | 2018-11-11 18:50 | Progress Note ---
Assessment and Plan Assessment and plan: 82 YO Female presented to then ED after the patient was found down and unresponsive and reports seizure like activity. On EMS arrival patient was noted to have a GCS of 3 and was placed on oxygen mask and intubated in the ED on arrival. Initial Temp was noted as 102.2 In the ED patient was intubated due to AMS and Acute Hypoxemic Respiratory Failure, and is unable to protect her airway, Teleneurology consulted in ED. Pt deemed not a candidate for TPA. No prior admission for review. CXR: worsening left lobar infiltrate Renal us: Small left renal cyst, negative for obstruction or mass MRI Head: negative for acute pathology Culture: Staph homis in blood staph aureus in sputum * Etiology of patient's illness is unknown at this time. Multiple workup is ongoing including neurological and infection control studies. This includes lumbar puncture and EEG. Patient nevertheless is improving we'll continue current management. * The patient son informs me the patient has been very lethargic for a few weeks now and has been mostly in bed. 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 Acute cystitis Hypertensive Urgency: Resume Coreg, Hydrazine Acute Respiratory Failure with Hypoxia Possible Seizure Lactic Acidosis Hypernatermia: Continue free water Acute Metabolic Encephalopathy: Thrombocytopena BRAD possible secondary to Ischemic ATN: . Nephrology following. Patient on HF management at home. Will discuss resuming Lasix PLAN: Continue supportive care Discussed with infectious disease lumbar puncture planned for today. Renal function stable?secondary to transient hypotension vs Vancomycin, through level within normal limit. Continue to monitor No abnormality per Neurology Improving mental status VAP bundle Vent management per Marketing Communication Manager Replace electrolytes, sodium BETTER Spoke to family at bedside DVT Prophy with SCD considering low plt The high probability of a clinically significant, sudden or life threatening deterioration of the [Neuro, cardiac, respiratory, renal] system(s) required my full and direct attention, intervention and personal management. The aggregate critical care time was [35] minutes. This time is in addition to time spent performing reported procedures but includes the following: [x] Data Review and interpretation [x] Patient assessment and monitoring of vital signs [x] Documentation [x] Medication orders and management History Interval history: Patient seen and examined, remains on full ventilatory support. Continues to have slow but noted improvement. A lumbar puncture today. Hospitalist Physical - Physical exam Narrative exam: VITAL SIGNS: Reviewed. GENERAL: intubated and on mechanical ventilation, opens eyes to name. Vital signs as documented. HEAD: No signs of head trauma. EYES: Pupils are equal. EARS: unable to assess MOUTH: ETT in place NECK: No adenopathy, no JVD. CHEST: Chest with diminished breath sounds bilaterally. No wheezes, rales, or rhonchi. CARDIAC: Regular rate and rhythm. S1 and S2, without murmurs, gallops, or rubs. VASCULAR: Bilateral upper ext Edema. Peripheral pulses normal and equal in all extremities. ABDOMEN: Soft, non tender and non distended. No rebound or guarding, and no masses palpated. Bowel Sounds normal. MUSCULOSKELETAL: unable to examine, bilateral upper ext non pitting edema NEUROLOGIC EXAM: Intubated PSYCHIATRIC: Mood normal. SKIN: age appropriate skin blemishes - Constitutional Vitals: Temp Pulse Resp BP Pulse Ox 98.9 F 110 H 30 H 148/63 100 11/11/18 16:00 11/11/18 18:33 11/11/18 18:33 11/11/18 18:33 11/11/18 18:33 General appearance: Present: severe distress Results - Labs CBC & Chem 7: 11/11/18 05:01 11/11/18 05:01 Labs: Laboratory Last Values WBC 4.1 K/mm3 (4.5-11.0) L 11/11/18 05:01 RBC 3.11 M/mm3 (3.65-5.03) L 11/11/18 05:01 Hgb 9.1 gm/dl (10.1-14.3) L 11/11/18 05:01 Hct 27.7 % (30.3-42.9) L 11/11/18 05:01 MCV 89 fl (79-97) 11/11/18 05:01 MCH 29 pg (28-32) 11/11/18 05:01 MCHC 33 % (30-34) 11/11/18 05:01 RDW 14.6 % (13.2-15.2) 11/11/18 05:01 Plt Count 97 K/mm3 (140-440) L 11/11/18 05:01 Lymph % (Auto) 13.4 % (13.4-35.0) 11/10/18 09:52 [place] % (Auto) 14.8 % (0.0-7.3) H 11/10/18 09:52 Eos % (Auto) 1.6 % (0.0-4.3) 11/10/18 09:52 Baso % (Auto) 0.3 % (0.0-1.8) 11/10/18 09:52 Lymph # 0.6 K/mm3 (1.2-5.4) L 11/10/18 09:52 [place] # 0.7 K/mm3 (0.0-0.8) 11/10/18 09:52 Eos # 0.1 K/mm3 (0.0-0.4) 11/10/18 09:52 Baso # 0.0 K/mm3 (0.0-0.1) 11/10/18 09:52 Seg Neutrophils % 69.9 % (40.0-70.0) 11/10/18 09:52 Seg Neutrophils # 3.2 K/mm3 (1.8-7.7) 11/10/18 09:52 PT 15.2 Sec. (12.2-14.9) H 11/11/18 10:03 INR 1.23 (0.87-1.13) H 11/11/18 10:03 APTT 31.8 Sec. (24.2-36.6) 11/11/18 10:03 POC ABG pH 7.395 (7.35-7.45) 11/11/18 17:25 POC ABG pCO2 35.4 (35-45) 11/11/18 17:25 POC ABG pO2 121 (80-105) H 11/11/18 17:25 POC ABG HCO3 21.7 (22-26 mml/L) 11/11/18 17:25 POC ABG Total CO2 23 (23-27mmol/L) 11/11/18 17:25 POC ABG O2 Sat 99 11/11/18 17:25 POC ABG Base Excess -3 ((-2) - (+3)mmol/L) 11/11/18 17:25 28 % 11/11/18 17:25 Sodium 138 mmol/L (137-145) 11/11/18 05:01 Potassium 5.3 mmol/L (3.6-5.0) H 11/11/18 05:01 Chloride 108.2 mmol/L (98-107) H 11/11/18 05:01 Carbon Dioxide 21 mmol/L (22-30) L 11/11/18 05:01 14 mmol/L 11/11/18 05:01 BUN 39 mg/dL (7-17) H 11/11/18 05:01 2.2 mg/dL (0.7-1.2) H 11/11/18 05:01 Estimated GFR 21 ml/min 11/11/18 05:01 18 % 11/11/18 05:01 Glucose 155 mg/dL (65-100) H 11/11/18 05:01 POC Glucose 116 (70-105) H 11/11/18 17:00 Lactic Acid 0.70 mmol/L (0.7-2.0) 11/09/18 04:12 Calcium 9.2 mg/dL (8.4-10.2) 11/11/18 05:01 Phosphorus 3.00 mg/dL (2.5-4.5) D 11/08/18 04:27 Magnesium 2.20 mg/dL (1.7-2.3) 11/05/18 16:31 0.50 mg/dL (0.1-1.2) 11/06/18 04:09 AST 18 units/L (5-40) 11/06/18 04:09 ALT 14 units/L (7-56) 11/06/18 04:09 44 units/L (35-129) 11/06/18 04:09 44.0 umol/L (25-60) 11/05/18 17:28 < 7 units/L (30-135) L 11/05/18 16:31 0.019 ng/mL (0.00-0.029) 11/05/18 16:31 3.50 mg/dL (0.00-1.30) H 11/07/18 15:48 5.7 g/dL (6.3-8.2) L 11/06/18 04:09 3.1 g/dL (3.9-5) L 11/06/18 04:09 1.2 % 11/06/18 04:09 TSH 0.972 mlU/mL (0.270-4.200) 11/05/18 16:31 Yellow (Yellow) 11/05/18 20:47 Slightly-cloudy (Clear) 11/05/18 20:47 5.0 (5.0-7.0) 11/05/18 20:47 Ur Specific [place] 1.016 (1.003-1.030) 11/05/18 20:47 100 mg/dl mg/dL (Negative) 11/05/18 20:47 50 mg/dL (Negative) 11/05/18 20:47 Neg mg/dL (Negative) 11/05/18 20:47 Sm (Negative) 11/05/18 20:47 Pos (Negative) 11/05/18 20:47 Neg (Negative) 11/05/18 20:47 < 2.0 mg/dL (<2.0) 11/05/18 20:47 Ur Leukocyte Esterase Tr (Negative) 11/05/18 20:47 19.0 /HPF (0.0-6.0) H 11/05/18 20:47 4.0 /HPF (0.0-6.0) 11/05/18 20:47 U Epithel Cells (Auto) 1.0 /HPF (0-13.0) 11/05/18 20:47 Few /HPF 11/05/18 20:47 None seen (None Seen) 11/06/18 14:48 155.8 mg/dL (0.1-20.0) H 11/06/18 Unknown 40 mmol/L 11/06/18 Unknown 68 mg/dL (5-11.8) H 11/06/18 Unknown Clear 11/11/18 Unknown Colorless 11/11/18 Unknown 10 /mm3 (1-10) 11/11/18 Unknown 22 /mm3 (0-0) 11/11/18 Unknown CSF Seg Neutrophils 0 % (0-6) 11/11/18 Unknown 37.8 % (40-80) 11/11/18 Unknown CSF Reactive Lymphs 0 % 11/11/18 Unknown 62.2 % (15-45) 11/11/18 Unknown 0 % 11/11/18 Unknown 0 % 11/11/18 Unknown C 11/11/18 Unknown 77 mg/dL 11/11/18 Unknown 57 mg/dL 11/11/18 Unknown Vancomycin Trough 17.5 ug/mL (5.0-20.0) 11/08/18 21:16 Random Vancomycin 22.4 ug/mL (0-40.0) 11/11/18 05:01 Salicylates < 0.3 mg/dL (2.8-20.0) L 11/05/18 16:31 Acetaminophen < 5.0 ug/mL (10.0-30.0) L 11/05/18 16:31 Plasma/Serum Alcohol < 0.01 % (0-0.07) 11/05/18 16:31 Active Medications - Current Medications Current Medications: Generic Name Dose Route Start Last Admin Trade Name Freq PRN Reason Stop Dose Admin Albuterol 2.5 mg 11/05/18 17:52 Proventil IH Q3HRT PRN Shortness Of Breath Lipase/Protease/Amylase 1 each 11/07/18 11:[address] 10,500 Unit FEEDTUBE PRN PRN For Clogged Feeding Tube Carvedilol 6.25 mg 11/09/18 11:00 11/11/18 10:20 Coreg PO 6.25 mg BID NIKKO Administration Dextrose 50 ml 11/05/18 17:59 D50w (25gm) Syringe IV PRN PRN Hypoglycemia Famotidine 20 mg 11/11/18 10:00 11/11/18 10:19 Pepcid PO 20 mg DAILY NIKKO Administration Fentanyl 50 mcg 11/05/18 16:21 11/08/18 04:48 Sublimaze IV 50 mcg Q10MIN PRN Administration ANALGESIA Gabapentin 800 mg 11/08/18 10:00 11/11/18 10:19 Neurontin PO 800 mg BID NIKKO Administration Hydralazine HCl 10 mg 11/05/18 21:30 11/08/18 04:53 Apresoline IV 10 mg Q6HR PRN Administration Hypertension Hydrophilic Ointment 1 applic 11/05/18 16:21 Vaseline Lip Therapy TP Q2HR PRN Dry Lips Fentanyl Citrate 2,000 mcg in 100 mls @ 3.485 mls/hr 11/05/18 17:00 11/09/18 04:43 Fentanyl Drip Premix IV 0 mcg/kg/hr TITR NIKKO 0 mls/hr Titration Protocol 1 MCG/KG/HR Lorazepam 100 mg/ Sodium 100 mls @ 1 mls/hr 11/05/18 17:00 11/07/18 08:23 Chloride/ Miscellaneous IV 0 mg/hr Information TITR NIKKO 0 mls/hr Titration Protocol 1 MG/HR Cefepime HCl 1 gm in 100 mls @ 200 mls/hr 11/11/18 22:00 Maxipime/Ns 1 Gm/100 Ml IV Q24H NIKKO Protocol Sodium Chloride 1,000 mls @ 75 mls/hr 11/11/18 12:00 11/11/18 13:00 Nacl 0.9% 1000 Ml IV 75 mls/hr DIRECT NIKKO Administration Insulin Human Lispro 0 unit 11/06/18 12:00 11/11/18 13:00 Humalog SUB-Q Not Given Q6HR [facility] Protocol Latanoprost 1 drops 11/08/18 18:00 11/10/18 17:42 Latanoprost 0.005% OU 1 drops QPM NIKKO Administration Lorazepam 2 mg 11/05/18 16:21 11/08/18 04:47 Ativan IV 2 mg Q10MIN PRN Administration Agitation Miscellaneous Medication 1 drop 11/08/18 22:00 11/11/18 10:21 Brimonidine Tartate OP 1 drop BID NIKKO Administration Multi-Ingred Cream/Lotion/Oil/Oint 1 applic 11/05/18 16:21 Artificial Tears Ophth Oint OU Q4HR PRN Dry Eye(s) Pravastatin Sodium 20 mg 11/08/18 10:00 11/11/18 10:19 Pravachol PO 20 mg DAILY NIKKO Administration Ropinirole HCl 1 mg 11/08/18 09:00 11/11/18 13:00 Requip PO 1 mg TID NIKKO Administration Simple Syrup 15 ml 11/07/18 11:07 Simple Syrup FEEDTUBE PRN PRN Hypoglycemia Simple Syrup 30 ml 11/07/18 11:07 Simple Syrup FEEDTUBE PRN PRN Hypoglycemia Sodium Bicarbonate 325 mg 11/07/18 11:07 Sodium Bicarbonate FEEDTUBE PRN PRN For Clogged Feeding Tube Sodium Chloride 10 ml 11/05/18 22:00 11/11/18 10:22 Sodium Chloride Flush Syringe 10 Ml IV 10 ml BID NIKKO Administration Sodium Chloride 10 ml 11/05/18 17:52 Sodium Chloride Flush Syringe 10 Ml IV PRN PRN LINE FLUSH Nutrition/Malnutrition Assess - Dietary Evaluation Nutrition/Malnutrition Findings: Nutrition Notes Start: 11/06/18 16:18 Freq: Status: Active Protocol: Document 11/11/18 10:36 LP (Rec: 11/11/18 10:43 LP [id number]) Nutrition Notes Initial or Follow up Reassessment Current Diagnosis Acute Kidney Injury, Respiratory Failure Other Pertinent Diagnosis Encephalopathy Current Diet Promote at 55ml/hr Labs/Tests K 5.3 Pertinent Medications Reviewed Height 5 ft 5 in Weight 69.7 kg Mouthcard Body Weight (kg) 56.81 BMI 25.5 Subjective/Other Information Pt tolerating TF at goal rate. Will need to change TF due to renal issues. Burn Absent Trauma Absent #1 Nutrition Diagnosis Inadequate oral intake Diagnosis Progress(for reassessment Continues documentation) Is patient on ventilator? Yes Is Patient Ambulatory and/or Out of Bed No REE-(Biddle-St. Jeor-confined to bed) 1390.584 Calculation Used for Recommendations Biddle-St Jeor Additional Notes Protein Needs: 84-139g (1.2-2g /kg) Fluid Needs: 1 ml/kcal Nutrition Intervention Change Diet Order: TF Nutrition Support: Change to [place] at 30ml/hr Flush with 130ml q4h Kcal 1,296 Protein (gm) 58 Fluid (mL) 539 Goal #1 Meet at least 80% of kcal and protein needs Anticipated Discharge Needs: Unable to determine at this time Follow-Up By: 11/13/18 Additional Comments Follow for TF change, tolerance and renal labs
[2018-11-11] MEDS: APRESOLINE IV PRN (19:51)
[2018-11-11] MEDS: MAXIPIME/NS 1 GM/100 ML 1 GM/100 ML BAG IV SCH (21:57)
[2018-11-12] MEDS: NACL 0.9% 1000 ML 1,000 ML IV SCH ×2 (02:20→14:11)
[2018-11-12] MEDS: APRESOLINE IV PRN ×3 (02:20→19:59)
[2018-11-12 04:44] LABS: Hematocrit 29.2 % (30.3-42.9); Hemoglobin 9.6 gm/dl (10.1-14.3); Mean Corpuscular HGB Conc 33 % (30-34); Mean Corpuscular Volume 89 fl (79-97); Platelet Count 126 K/mm3 (140-440); Red Blood Count 3.26 M/mm3 (3.65-5.03); Red Cell Distribution Width 14.3 % (13.2-15.2)
[2018-11-12 05:00] LABS: Albumin 2.5 g/dL (3.9-5); Calcium 9.9 mg/dL (8.4-10.2)
[2018-11-12] MEDS: COREG PO SCH ×3 (06:25→21:27)
[2018-11-12] MEDS: NEURONTIN PO SCH ×3 (06:26→21:27)
[2018-11-12] MEDS: SODIUM CHLORIDE FLUSH SYRINGE 10 ML IV SCH ×3 (06:28→21:28)
[2018-11-12] MEDS: HumaLOG SUB-Q SCH ×3 (06:29→18:36)
[2018-11-12] MEDS: BRIMONIDINE OP SCH ×3 (06:32→21:29)
[2018-11-12] MEDS: REQUIP PO SCH ×4 (06:39→21:27)
[2018-11-12] MEDS: PEPCID PO SCH (09:15)
[2018-11-12] MEDS: PRAVACHOL PO SCH (09:16)
--- NOTE | 2018-11-12 09:35 | Progress Note ---
Assessment and Plan Acute Respiratory Failure with Hypoxia Gram positive bacteremia (in clusters) Possible Seizure Lactic Acidosis Hypernatermia Acute Metabolic Encephalopathy BRAD possible secondary to Ischemic ATN Thrombocytopenia Hypokalemia - give daytime breaks off BIPAP as tolerated (Scheduled BIPAP qhs) - HFNC during the day - continue aspiration precautions - ST evaluation - continue supplemental oxygen as needed to keep O2 sat's > 90% - continue lung protective strategies - daily CXR and ABG in short term - VAP bundle addressed - follow CSF studies (NGTD) - continue to avoid sedatives - follow HIT assay - Coreg reduced further to 6.25 mg bid - MRI negative for acute process - 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% (no vegetations) - EEG report pending - discontinued mckoy catheter - continue bronchodilators with pulmonary hygiene per RT - complete antibiotics per ID rec's - continue enteral nutrition as tolerated - continue accuchecks with glycemic control per SSI for target blood glucose <180mg/dL - Agitation management - Titrate sedation to RASS 0 to -1 - Prevention of delirium, maintenance of sleep-wake cycle - Azotemia per nephrology; continue gentle hydration - Avoid nephrotoxic agents, adjust all antibiotics and medications for CrCL and GFR - VTE and Stress ulcer prophylaxis - continue other care per attending / other consultants .... careplan discussed at length with family at bedside ... re-evaluate in am & prn CONDITION: CRITICAL PROGNOSIS: GRAVE to GUARDED CODE STATUS: FULL CODE The high probability of a clinically significant, sudden or life-threatening deterioration of the [respiratory, cardiac and neurologic] system(s) required my full and direct attention, intervention and personal management. The aggregate critical care time was [32] minutes without overlap. Time includes spent on; [x] Data Review and interpretation [x] Patient assessment and monitoring of vital signs [x] Documentation [x] Medication orders and management Subjective Date of service: 11/12/18 Principal diagnosis: Ac hypoxemic Resp Failure ; Possible Seizure; Ac. Met Encephalopathy; BRAD Interval history: Patient is seen today for: Acute Respiratory Failure with Hypoxemia; Gram positive bacteremia (in clusters); Possible Seizure; Lactic Acidosis; Hyperna termia; Acute Metabolic Encephalopathy; BRAD possible secondary to Ischemic ATN Seen and examined at bedside; 24hour events reviewed; nursing and respiratory care staff consulted; no adverse overnight events reported to me; resting peacefully in bed; remains on BIPAP since post intubation but stridor improved and oxygenation improved Objective Vital Signs - 12hr 11/11/18 11/11/18 11/11/18 22:00 23:00 23:16 Temperature 100.2 F H Pulse Rate 122 H 105 H Pulse Rate [ Apical] Respiratory 28 H 22 Rate Blood Pressure 155/54 161/54 O2 Sat by Pulse 93 95 Oximetry 11/12/18 11/12/18 11/12/18 00:00 01:00 02:00 Temperature Pulse Rate 106 H 112 H 109 H Pulse Rate [ 103 H Apical] Respiratory 24 25 H 24 Rate Blood Pressure 127/50 127/50 127/50 O2 Sat by Pulse 95 93 94 Oximetry 11/12/18 11/12/18 11/12/18 02:20 03:00 03:34 Temperature 99.7 F H Pulse Rate 103 H 114 H Pulse Rate [ Apical] Respiratory 24 Rate Blood Pressure 170/61 150/58 O2 Sat by Pulse 95 Oximetry 11/12/18 11/12/18 11/12/18 04:00 04:27 05:00 Temperature Pulse Rate 121 H 119 H 121 H Pulse Rate [ 112 H Apical] Respiratory 23 27 H 24 Rate Blood Pressure 150/58 152/53 152/53 O2 Sat by Pulse 94 98 95 Oximetry 11/12/18 11/12/18 11/12/18 06:00 06:25 07:00 Temperature Pulse Rate 112 H 123 H 118 H Pulse Rate [ Apical] Respiratory 25 H 19 Rate Blood Pressure 140/57 156/78 140/57 O2 Sat by Pulse 97 93 Oximetry 11/12/18 11/12/18 11/12/18 08:00 08:32 09:00 Temperature 99.6 F Pulse Rate 120 H 120 H 131 H Pulse Rate [ Apical] Respiratory 19 28 H Rate Blood Pressure 181/148 173/86 177/80 O2 Sat by Pulse 94 94 Oximetry Constitutional: appears uncomfortable, other (elderly looking CF, normocephalic and astraumatic with mildly increased respiratory effort on MVS) Eyes: non-icteric ENT: oropharynx moist, other (ETT 23 cm JORDAN) Neck: supple, no lymphadenopathy, no JVD, other (no thyromegaly) Effort: mildly labored Ascultation: Bilateral: diminished breath sounds, rhonchi (bases) Percussion: Bilateral: not dull Cardiovascular: regular rate and rhythm, murmur noted (systolic) Gastrointestinal: normoactive bowel sounds, soft, non-tender, non-distended Integumentary: normal Extremities: no cyanosis, no edema, pink and warm, pulses normal, no ischemia or petechiae Neurologic: non-focal exam (grossly), pupils equal and round, CN II-XII normal, unable to assess Psychiatric: other (unable to assess re: AMS) CBC and BMP: 11/13/18 04:49 11/13/18 04:49 ABG, PT/INR, D-dimer: ABG POC ABG pH 7.415 (7.35-7.45) 11/12/18 04:44 POC ABG pCO2 34.0 (35-45) L 11/12/18 04:44 POC ABG pO2 138 (80-105) H 11/12/18 04:44 POC ABG HCO3 21.8 (22-26 mml/L) 11/12/18 04:44 POC ABG Total CO2 23 (23-27mmol/L) 11/12/18 04:44 POC ABG O2 Sat 99 11/12/18 04:44 PT/INR, D-dimer PT 15.2 Sec. (12.2-14.9) H 11/11/18 10:03 INR 1.23 (0.87-1.13) H 11/11/18 10:03 Abnormal lab findings: Abnormal Labs 11/05/18 11/05/18 11/05/18 16:31 16:31 16:31 WBC RBC Hgb Hct Plt Count 139 L [place] % (Auto) Lymph # 0.7 L Seg Neutrophils % 78.8 H PT INR POC ABG pH POC ABG pCO2 POC ABG pO2 Sodium 148 H Potassium 3.2 L Chloride 110.6 H Carbon Dioxide 17 L BUN 18 H Creatinine 1.9 H Glucose 205 H POC Glucose Lactic Acid 8.20 H* Calcium 10.9 H Phosphorus Total Creatine Kinase C-Reactive Protein Total Protein Albumin 3.6 L Urine WBC (Auto) Urine Creatinine Urine Total Protein Salicylates Acetaminophen 11/05/18 11/05/18 11/05/18 16:31 16:31 16:31 WBC RBC Hgb Hct Plt Count [place] % (Auto) Lymph # Seg Neutrophils % PT INR POC ABG pH POC ABG pCO2 POC ABG pO2 Sodium Potassium Chloride Carbon Dioxide BUN Creatinine Glucose POC Glucose Lactic Acid Calcium Phosphorus Total Creatine Kinase < 7 L C-Reactive Protein Total Protein Albumin Urine WBC (Auto) Urine Creatinine Urine Total Protein Salicylates < 0.3 L Acetaminophen < 5.0 L 11/05/18 11/05/18 11/05/18 17:29 17:42 20:47 WBC RBC Hgb Hct Plt Count [place] % (Auto) Lymph # Seg Neutrophils % PT INR POC ABG pH POC ABG pCO2 33.4 L POC ABG pO2 136 H Sodium Potassium Chloride Carbon Dioxide BUN Creatinine Glucose POC Glucose Lactic Acid 3.30 H* Calcium Phosphorus Total Creatine Kinase C-Reactive Protein Total Protein Albumin Urine WBC (Auto) 19.0 H Urine Creatinine Urine Total Protein Salicylates Acetaminophen 11/05/18 11/05/18 11/06/18 20:47 22:42 04:09 WBC 4.4 L RBC Hgb Hct Plt Count 102 L [place] % (Auto) 13.2 H Lymph # 1.0 L Seg Neutrophils % PT INR POC ABG pH POC ABG pCO2 POC ABG pO2 Sodium Potassium Chloride Carbon Dioxide BUN Creatinine Glucose POC Glucose 121 H Lactic Acid Calcium Phosphorus Total Creatine Kinase C-Reactive Protein Total Protein Albumin Urine WBC (Auto) Urine Creatinine 166.9 H Urine Total Protein Salicylates Acetaminophen 11/06/18 11/06/18 11/06/18 04:09 05:05 07:31 WBC RBC Hgb Hct Plt Count [place] % (Auto) Lymph # Seg Neutrophils % PT INR POC ABG pH 7.509 H POC ABG pCO2 < 30 L POC ABG pO2 115 H Sodium 150 H Potassium 2.7 L* Chloride 118.2 H Carbon Dioxide 21 L BUN 21 H Creatinine 1.6 H Glucose 125 H POC Glucose Lactic Acid 2.50 H* Calcium Phosphorus Total Creatine Kinase C-Reactive Protein Total Protein 5.7 L Albumin 3.1 L Urine WBC (Auto) Urine Creatinine Urine Total Protein Salicylates Acetaminophen 11/06/18 11/06/18 11/06/18 12:04 16:21 18:04 WBC RBC Hgb Hct Plt Count [place] % (Auto) Lymph # Seg Neutrophils % PT INR POC ABG pH POC ABG pCO2 POC ABG pO2 Sodium Potassium 5.4 H D Chloride Carbon Dioxide BUN Creatinine Glucose POC Glucose 122 H 110 H Lactic Acid Calcium Phosphorus Total Creatine Kinase C-Reactive Protein Total Protein Albumin Urine WBC (Auto) Urine Creatinine Urine Total Protein Salicylates Acetaminophen 11/06/18 11/06/18 11/07/18 21:28 Unknown 04:02 WBC RBC Hgb Hct Plt Count [place] % (Auto) Lymph # Seg Neutrophils % PT INR POC ABG pH POC ABG pCO2 POC ABG pO2 Sodium 152 H Potassium Chloride 123.4 H Carbon Dioxide 20 L BUN 23 H Creatinine 1.5 H Glucose 111 H POC Glucose 125 H Lactic Acid Calcium Phosphorus 1.00 L Total Creatine Kinase C-Reactive Protein Total Protein Albumin Urine WBC (Auto) Urine Creatinine 155.8 H Urine Total Protein 68 H Salicylates Acetaminophen 11/07/18 11/07/18 11/07/18 09:07 11:05 15:48 WBC 4.1 L RBC 3.62 L Hgb Hct Plt Count 77 L [place] % (Auto) Lymph # Seg Neutrophils % PT INR POC ABG pH 7.314 L POC ABG pCO2 POC ABG pO2 Sodium Potassium Chloride Carbon Dioxide BUN Creatinine Glucose POC Glucose Lactic Acid Calcium Phosphorus Total Creatine Kinase C-Reactive Protein 3.50 H Total Protein Albumin Urine WBC (Auto) Urine Creatinine Urine Total Protein Salicylates Acetaminophen 11/08/18 11/08/18 11/08/18 04:27 05:29 12:27 WBC RBC Hgb Hct Plt Count [place] % (Auto) Lymph # Seg Neutrophils % PT INR POC ABG pH POC ABG pCO2 33.4 L POC ABG pO2 78 L Sodium 146 H Potassium Chloride 117.1 H Carbon Dioxide 18 L BUN 19 H Creatinine 1.6 H Glucose 111 H POC Glucose 108 H Lactic Acid Calcium Phosphorus Total Creatine Kinase C-Reactive Protein Total Protein Albumin Urine WBC (Auto) Urine Creatinine Urine Total Protein Salicylates Acetaminophen 11/08/18 11/08/18 11/08/18 12:27 18:11 23:50 WBC RBC Hgb Hct Plt Count [place] % (Auto) Lymph # Seg Neutrophils % PT INR POC ABG pH POC ABG pCO2 POC ABG pO2 Sodium Potassium Chloride Carbon Dioxide BUN Creatinine Glucose POC Glucose 188 H 126 H 149 H Lactic Acid Calcium Phosphorus Total Creatine Kinase C-Reactive Protein Total Protein Albumin Urine WBC (Auto) Urine Creatinine Urine Total Protein Salicylates Acetaminophen 11/09/18 11/09/18 11/09/18 03:32 04:12 04:12 WBC 3.6 L RBC 2.99 L Hgb 8.8 L Hct 26.9 L Plt Count 81 L [place] % (Auto) Lymph # Seg Neutrophils % PT INR POC ABG pH 7.329 L POC ABG pCO2 POC ABG pO2 Sodium Potassium Chloride 114.8 H Carbon Dioxide 20 L BUN 28 H Creatinine 1.9 H Glucose 144 H POC Glucose Lactic Acid Calcium 8.2 L Phosphorus Total Creatine Kinase C-Reactive Protein Total Protein Albumin Urine WBC (Auto) Urine Creatinine Urine Total Protein Salicylates Acetaminophen 11/09/18 11/09/18 11/09/18 05:24 12:59 17:59 WBC RBC Hgb Hct Plt Count [place] % (Auto) Lymph # Seg Neutrophils % PT INR POC ABG pH POC ABG pCO2 POC ABG pO2 Sodium Potassium Chloride Carbon Dioxide BUN Creatinine Glucose POC Glucose 163 H 175 H 116 H Lactic Acid Calcium Phosphorus Total Creatine Kinase C-Reactive Protein Total Protein Albumin Urine WBC (Auto) Urine Creatinine Urine Total Protein Salicylates Acetaminophen 11/10/18 11/10/18 11/10/18 00:45 03:57 06:45 WBC RBC Hgb Hct Plt Count [place] % (Auto) Lymph # Seg Neutrophils % PT INR POC ABG pH 7.332 L POC ABG pCO2 POC ABG pO2 Sodium Potassium Chloride Carbon Dioxide BUN Creatinine Glucose POC Glucose 201 H 148 H Lactic Acid Calcium Phosphorus Total Creatine Kinase C-Reactive Protein Total Protein Albumin Urine WBC (Auto) Urine Creatinine Urine Total Protein Salicylates Acetaminophen 11/10/18 11/10/18 11/10/18 09:52 09:52 12:36 WBC RBC 3.48 L Hgb Hct Plt Count 103 L [place] % (Auto) 14.8 H Lymph # 0.6 L Seg Neutrophils % PT INR POC ABG pH POC ABG pCO2 POC ABG pO2 Sodium Potassium Chloride 109.3 H Carbon Dioxide 21 L BUN 36 H Creatinine 2.1 H Glucose 134 H POC Glucose 142 H Lactic Acid Calcium Phosphorus Total Creatine Kinase C-Reactive Protein Total Protein Albumin Urine WBC (Auto) Urine Creatinine Urine Total Protein Salicylates Acetaminophen 11/10/18 11/10/18 11/11/18 17:31 23:34 05:01 WBC 4.1 L RBC 3.11 L Hgb 9.1 L Hct 27.7 L Plt Count 97 L [place] % (Auto) Lymph # Seg Neutrophils % PT INR POC ABG pH POC ABG pCO2 POC ABG pO2 Sodium Potassium Chloride Carbon Dioxide BUN Creatinine Glucose POC Glucose 152 H 163 H Lactic Acid Calcium Phosphorus Total Creatine Kinase C-Reactive Protein Total Protein Albumin Urine WBC (Auto) Urine Creatinine Urine Total Protein Salicylates Acetaminophen 11/11/18 11/11/18 11/11/18 05:01 05:34 10:03 WBC RBC Hgb Hct Plt Count [place] % (Auto) Lymph # Seg Neutrophils % PT 15.2 H INR 1.23 H POC ABG pH POC ABG pCO2 POC ABG pO2 Sodium Potassium 5.3 H Chloride 108.2 H Carbon Dioxide 21 L BUN 39 H Creatinine 2.2 H Glucose 155 H POC Glucose 159 H Lactic Acid Calcium Phosphorus Total Creatine Kinase C-Reactive Protein Total Protein Albumin Urine WBC (Auto) Urine Creatinine Urine Total Protein Salicylates Acetaminophen 11/11/18 11/11/18 11/11/18 12:36 17:00 17:25 WBC RBC Hgb Hct Plt Count [place] % (Auto) Lymph # Seg Neutrophils % PT INR POC ABG pH POC ABG pCO2 POC ABG pO2 121 H Sodium Potassium Chloride Carbon Dioxide BUN Creatinine Glucose POC Glucose 147 H 116 H Lactic Acid Calcium Phosphorus Total Creatine Kinase C-Reactive Protein Total Protein Albumin Urine WBC (Auto) Urine Creatinine Urine Total Protein Salicylates Acetaminophen 11/11/18 11/11/18 11/12/18 20:33 23:46 04:28 WBC RBC 3.26 L Hgb 9.6 L Hct 29.2 L Plt Count 126 L [place] % (Auto) Lymph # Seg Neutrophils % PT INR POC ABG pH 7.247 L POC ABG pCO2 53.6 H POC ABG pO2 Sodium Potassium Chloride Carbon Dioxide BUN Creatinine Glucose POC Glucose 130 H Lactic Acid Calcium Phosphorus Total Creatine Kinase C-Reactive Protein Total Protein Albumin Urine WBC (Auto) Urine Creatinine Urine Total Protein Salicylates Acetaminophen 11/12/18 11/12/18 04:28 04:44 WBC RBC Hgb Hct Plt Count [place] % (Auto) Lymph # Seg Neutrophils % PT INR POC ABG pH POC ABG pCO2 34.0 L POC ABG pO2 138 H Sodium Potassium 5.2 H Chloride 109.9 H Carbon Dioxide 20 L BUN 40 H Creatinine 2.2 H Glucose 112 H POC Glucose Lactic Acid Calcium Phosphorus Total Creatine Kinase C-Reactive Protein Total Protein 5.9 L Albumin 2.5 L Urine WBC (Auto) Urine Creatinine Urine Total Protein Salicylates Acetaminophen Allied health notes reviewed: nursing
--- NOTE | 2018-11-12 10:01 | Progress Note ---
Assessment and Plan Acute Renal Failure likely secondary to ischemic ATN, no obstruction: Hypokalemia: Hypernatremia: -non oliguric, stable Cr and BUN since yesterday -will check 24 hours creatinine clearance -cont gentle IVF -Hypernatremia - on free water flushes via OGT -Replete potassium -Renal US is negative for obstruction -Monitor I/O's -Avoid nephrotoxic agents Sepsis: -ID on board, follow cultures, on Abx, follow recs Acute encephalopathy: Possible Seizures -Neurology on board, f/u recs Acute Hypoxic Respiratory Failure: -on BIPAP Subjective Date of service: 11/12/18 Principal diagnosis: Ac hypoxemic Resp Failure ; Possible Seizure; Ac. Met Encephalopathy; BRAD Interval history: on bipap, follows simple commands, no family at bedside Objective - Vital Signs Vital signs: Vital Signs - 12hr 11/11/18 11/11/18 11/11/18 22:00 23:00 23:16 Temperature 100.2 F H Pulse Rate 122 H 105 H Pulse Rate [ Apical] Respiratory 28 H 22 Rate Blood Pressure 155/54 161/54 O2 Sat by Pulse 93 95 Oximetry 11/12/18 11/12/18 11/12/18 00:00 01:00 02:00 Temperature Pulse Rate 106 H 112 H 109 H Pulse Rate [ 103 H Apical] Respiratory 24 25 H 24 Rate Blood Pressure 127/50 127/50 127/50 O2 Sat by Pulse 95 93 94 Oximetry 11/12/18 11/12/18 11/12/18 02:20 03:00 03:34 Temperature 99.7 F H Pulse Rate 103 H 114 H Pulse Rate [ Apical] Respiratory 24 Rate Blood Pressure 170/61 150/58 O2 Sat by Pulse 95 Oximetry 11/12/18 11/12/18 11/12/18 04:00 04:27 05:00 Temperature Pulse Rate 121 H 119 H 121 H Pulse Rate [ 112 H Apical] Respiratory 23 27 H 24 Rate Blood Pressure 150/58 152/53 152/53 O2 Sat by Pulse 94 98 95 Oximetry 11/12/18 11/12/18 11/12/18 06:00 06:25 07:00 Temperature Pulse Rate 112 H 123 H 118 H Pulse Rate [ Apical] Respiratory 25 H 19 Rate Blood Pressure 140/57 156/78 140/57 O2 Sat by Pulse 97 93 Oximetry 0711/12/18 11/12/18 08:00 08:32 09:00 Temperature 99.6 F Pulse Rate 120 H 120 H 131 H Pulse Rate [ Apical] Respiratory 19 28 H Rate Blood Pressure 181/148 173/86 177/80 O2 Sat by Pulse 98 94 Oximetry - General Appearance General appearance: well-developed, well-nourished EENT: ATNC, PERRL, mucous membranes moist Neck: no JVD, no carotid bruit Respiratory: Present: Decreased Breath Sounds Cardiology: tachycardia Gastrointestinal: normoactive bowel sounds, no tenderness, no distended Integumentary: no rash, warm and dry Neurologic: other (follows simple commands) Musculoskeletal: other (trace pitting edema in BUE) Psychiatric: other (unable to anwer questions) - Lab 11/12/18 04:28 11/12/18 04:28 Most recent lab results Calcium 9.9 mg/dL (8.4-10.2) 11/12/18 04:28 Phosphorus 3.00 mg/dL (2.5-4.5) D 11/08/18 04:27 Magnesium 2.20 mg/dL (1.7-2.3) 11/05/18 16:31 155.8 mg/dL (0.1-20.0) H 11/06/18 Unknown 40 mmol/L 11/06/18 Unknown 68 mg/dL (5-11.8) H 11/06/18 Unknown Medications & Allergies - Medications Allergies/Adverse Reactions: Allergies aspirin Allergy (Verified 11/06/18 17:06) Unknown Home Medications: Home Medications Medication Instructions Recorded Confirmed Last Taken Type Carvedilol [Coreg] 25 mg PO BID 11/06/18 11/06/18 Unknown History Furosemide [Lasix TAB] 20 mg PO HS 11/06/18 11/06/18 Unknown History Furosemide [Lasix TAB] 40 mg PO QAM 11/06/18 11/06/18 Unknown History Gabapentin [Neurontin] 800 mg PO BID 11/06/18 11/06/18 Unknown History Pravastatin Sodium [Pravastatin] 20 mg PO DAILY 11/06/18 11/06/18 Unknown History Ropinirole HCl [Requip] 1 mg PO TID 11/06/18 11/06/18 Unknown History Brimonidine Tartrate [Brimonidine 1 drop OU BID 11/08/18 11/08/18 Unknown History Tartrate 0.2%] Active Medications: Generic Name Dose Route Start Last Admin Trade Name Freq PRN Reason Stop Dose Admin Albuterol 2.5 mg 11/05/18 17:52 Proventil IH Q3HRT PRN Shortness Of Breath Lipase/Protease/Amylase 1 each 11/07/18 11:07 Pancredoris Cruz 10,500 Unit FEEDTUBE PRN PRN For Clogged Feeding Tube Carvedilol 6.25 mg 11/09/18 11:00 11/12/18 09:15 Coreg PO Not Given BID NIKKO Dextrose 50 ml 11/05/18 17:59 D50w (25gm) Syringe IV PRN PRN Hypoglycemia Famotidine 20 mg 11/11/18 10:00 11/12/18 09:15 Pepcid PO Not Given DAILY NIKKO Gabapentin 800 mg 11/08/18 10:00 11/12/18 09:15 Neurontin PO Not Given BID NIKKO Hydralazine HCl 10 mg 11/05/18 21:30 11/12/18 08:32 Apresoline IV 10 mg Q6HR PRN Administration Hypertension Hydrophilic Ointment 1 applic 11/05/18 16:21 Vaseline Lip Therapy TP Q2HR PRN Dry Lips Cefepime HCl 1 gm in 100 mls @ 200 mls/hr 11/11/18 22:00 11/11/18 21:57 Maxipime/Ns 1 Gm/100 Ml IV 200 mls/hr Q24H NIKKO Administration Protocol Sodium Chloride 1,000 mls @ 75 mls/hr 11/11/18 12:00 11/12/18 02:20 Nacl 0.9% 1000 Ml IV 75 mls/hr DIRECT NIKKO Administration Insulin Human Lispro 0 unit 11/06/18 12:00 11/12/18 06:29 Humalog SUB-Q Not Given Q6HR [facility] Protocol Latanoprost 1 drops 11/08/18 18:00 11/11/18 18:50 Latanoprost 0.005% OU 1 drops QPM NIKKO Administration Miscellaneous Medication 1 drop 11/08/18 22:00 11/12/18 06:32 Brimonidine Tartate OP 1 drop BID NIKKO Administration Multi-Ingred Cream/Lotion/Oil/Oint 1 applic 07/09/19 16:21 Artificial Tears Ophth Oint OU Q4HR PRN Dry Eye(s) Pravastatin Sodium 20 mg 11/08/18 10:00 11/12/18 09:16 Pravachol PO Not Given DAILY NIKKO Ropinirole HCl 1 mg 11/08/18 09:00 11/12/18 09:15 Requip PO Not Given TID NIKKO Simple Syrup 15 ml 11/07/18 11:07 Simple Syrup FEEDTUBE PRN PRN Hypoglycemia Simple Syrup 30 ml 11/07/18 11:07 Simple Syrup FEEDTUBE PRN PRN Hypoglycemia Sodium Bicarbonate 325 mg 11/07/18 11:07 Sodium Bicarbonate FEEDTUBE PRN PRN For Clogged Feeding Tube Sodium Chloride 10 ml 11/05/18 22:00 11/12/18 06:28 Sodium Chloride Flush Syringe 10 Ml IV 10 ml BID NIKKO Administration Sodium Chloride 10 ml 11/05/18 17:52 Sodium Chloride Flush Syringe 10 Ml IV PRN PRN LINE FLUSH
--- NOTE | 2018-11-12 11:16 | Progress Note ---
Assessment and Plan Cultures: 11/05/2018 blood culture: 2/4 bottles (both sets) with Staph hominis 11/05/2018 urine culture: skin jama 11/05/2018 resp culture: oropharyngeal contamination. 11/06/2018 tracheal aspirate: MSSA 11/07/2018 blood culture: negative A/P: 82-year-old female with hypertension, heart disease, hyperlipidemia, neuropathy who has been living with her and was his primary caregiver and appare ntly had not been feeling well for the last 1 week, now admitted with AMS: 1) Sepsis: new low grade fever 100.2 on 11/11. Chest x-ray without evidence of pneumonia. UA with minimal pyuria, doubt UTI. Also with Staph hominis bacteremia. 2) Lactic acidosis: Lactate improved. CT abdomen and pelvis without contrast showed no acute endings. 3) Acute encephalopathy: Neurology following. ?related to seizures. MRI negative for acute process. CSF no evidence of meningitis. 4) BRAD v/s CKD: Renally dose antibiotics, worsening. 5) Staph hominis bacteremia: 2/4 bottles (both sets) with GPC in clusters. TTE unremarkable for valvular vegetations. Continue Vancomycin for 7 days. Repeat blood cultures negative. 6) MSSA in resp cultures: CXR without pneumonia. Recent CXRs more suggestive of atelectasis and possible b/l effusions. Most recent CXR shows increased pleuro-parenchyma density in the LLL. CT chest no pneumonia or effusion +atelectasis. 7) Acute respiratory failure: on BIPAP 8) Pancytopenia: better Recs: continue IV vancomycin, renally adjusted x 7 days from bacteremia clearance (ending 11/14/2018) continue cefepime renally adjusted D2 of 5 monitor fever Will follow Gema Stewart MD Infectious Diseases Director [facility] M [phone] O [phone] Subjective Date of service: 11/12/18 Principal diagnosis: Ac hypoxemic Resp Failure ; Possible Seizure; Ac. Met Encephalopathy; BRAD Interval history: Remains on BIPAP somnolent tmax 100.2 ROS unable to obtain Objective - Exam Narrative Exam: General: somnolent onn BIPAP in mild resp distress Head, Ears, Nose: Normocephalic, atraumatic. External ears, nose normal Eyes: Conjunctivae/corneas clear. No icterus. No ptosis. Neck: Supple, intubated Oral: +OGT Cardiovascular: S1, S2 normal. Respiratory: coarse bs angelika GI: Soft, non-tender; bowel sounds normal. No peritoneal signs Musculoskeletal: No pedal edema, no cyanosis. Skin: No rash or abscess Hem/Lymphatic: No palpable cervical or supraclavicular nodes. No lymphangitis Psych: calm, no agitation Neurological: opens eyes, doesn't follow commands, intubated, on vent EJ - Constitutional Vitals: Vital Signs Temp Pulse Resp BP Pulse Ox 99.6 F 131 H 28 H 177/80 94 11/12/18 08:00 11/12/18 09:00 11/12/18 09:00 11/12/18 09:00 11/12/18 09:00 Temperature -Last 24 Hours Temperature 99.6 F Temperature 99.7 F Temperature 100.2 F Temperature 99 F Temperature 98.9 F Temperature 98.6 F - Labs CBC & Chem 7: 11/12/18 04:28 11/12/18 04:28 Labs: Abnormal lab results 11/11/18 11/11/18 11/11/18 Range/Units 12:36 17:00 17:25 RBC (3.65-5.03) M/mm3 Hgb (10.1-14.3) gm/dl Hct (30.3-42.9) % Plt Count (140-440) K/mm3 POC ABG pH (7.35-7.45) POC ABG pCO2 (35-45) POC ABG pO2 121 H (80-105) Potassium (3.6-5.0) mmol/L Chloride (98-107) mmol/L Carbon Dioxide (22-30) mmol/L BUN (7-17) mg/dL Creatinine (0.7-1.2) mg/dL Glucose (65-100) mg/dL POC Glucose 147 H 116 H (70-105) Total Protein (6.3-8.2) g/dL Albumin (3.9-5) g/dL 11/11/18 11/11/18 11/12/18 Range/Units 20:33 23:46 04:28 RBC 3.26 L (3.65-5.03) M/mm3 Hgb 9.6 L (10.1-14.3) gm/dl Hct 29.2 L (30.3-42.9) % Plt Count 126 L (140-440) K/mm3 POC ABG pH 7.247 L (7.35-7.45) POC ABG pCO2 53.6 H (35-45) POC ABG pO2 (80-105) Potassium (3.6-5.0) mmol/L Chloride (98-107) mmol/L Carbon Dioxide (22-30) mmol/L BUN (7-17) mg/dL Creatinine (0.7-1.2) mg/dL Glucose (65-100) mg/dL POC Glucose 130 H (70-105) Total Protein (6.3-8.2) g/dL Albumin (3.9-5) g/dL 11/12/18 11/12/18 Range/Units 04:28 04:44 RBC (3.65-5.03) M/mm3 Hgb (10.1-14.3) gm/dl Hct (30.3-42.9) % Plt Count (140-440) K/mm3 POC ABG pH (7.35-7.45) POC ABG pCO2 34.0 L (35-45) POC ABG pO2 138 H (80-105) Potassium 5.2 H (3.6-5.0) mmol/L Chloride 109.9 H (98-107) mmol/L Carbon Dioxide 20 L (22-30) mmol/L BUN 40 H (7-17) mg/dL Creatinine 2.2 H (0.7-1.2) mg/dL Glucose 112 H (65-100) mg/dL POC Glucose (70-105) Total Protein 5.9 L (6.3-8.2) g/dL Albumin 2.5 L (3.9-5) g/dL
--- NOTE | 2018-11-12 11:18 | Progress Note ---
Assessment and Plan Assessment and plan: Patient is a 82 yo woman with a history of hypertension, dyslipidemia, OA s/p bilateral TKR and possible CHF who presented to [facility] ED with AMS. Apparently, patient was found unresponsive in the bed and seizing. On EMS arrival patient was noted to have a GCS of 3 and was placed on oxygen mask and intubated in the ED on arrival. Initial Temp was noted as 102.2. In the ED patient was intubated due to AMS and Acute Hypoxemic Respiratory Failure, and is unable to protect her airway, Teleneurology consulted in ED. Pt deemed not a candidate for TPA. No prior admission for review, first visit in our EMR. Also, her is in Hospice for metastatic cancer per violet Restrepo. * CXR: worsening left lobar infiltrate * Renal us: Small left renal cyst, negative for obstruction or mass * MRI Head: negative for acute pathology * Culture: Staph homis in blood * MSSA trach culture Acute hypoxic respiratory failure, poa: currently extubated on Sunday11/11/18, now on Bipap 50%, Pulm is following MSSA Sepsis Left Lobar Pneumonia: Continue Abx, ID following. Staph Hominis Bacteremia: Repeat blood cultures, ID following Hyperkalemia: treat with kayexalate Acute cystitis: treat with Abx, monitor bmp closely Hypertensive Urgency: Resume Coreg, Hydrazine Status Epilepticus, poa: Neurology is following, treat with prn IV ativan Lactic Acidosis, treat with renal failure Hypernatermia: Continue free water: monitor bmp closely Acute Metabolic Encephalopathy Thrombocytopenia; monitor CBC closely ARF due to suspect ATN, poa: Nephrology following. Patient on HF management at home. Remove right breast IV line and right EJ, place midline instead of PICC due to bacteremia. Remove mckoy also Repeat blood cultures Keep in ICU CCT 34 minutes History Interval history: Patient was seen and examined. Follow-up on current diagnosis of AMS. No overnight events reported to me. Imaging, nursing note, chart, labs and old chart reviewed. Discussed with violet Restrepo at bedside Hospitalist Physical - Physical exam Narrative exam: Gen: ill appearing, moderate increase in accessory muscles, with bipap 50% HEENT: NCAT, EOMI, PERRL, OP Clear Neck: supple, no adenopathy, no thyromegaly, no JVD CVS/Heart: Regular tachycardia normal S1S2, pulses present bilaterally Chest/Lungs: tachypneic, diminished bs bilatearal, Symmetrical chest expansion, good air entry bilaterally GI/Abdomen: soft, NTND, good bowel sounds, no guarding or rebound /Bladder: no suprapubic tenderness, no CVA or paraspinal tenderness Extermity/Skin: no c/c/e, no obvious rash MSK: sROM x 4 Neuro: CN 2-12 grossly intact, not following commands Psych: calm - Constitutional Vitals: Temp Pulse Resp BP Pulse Ox 99.6 F 131 H 28 H 177/80 94 11/12/18 08:00 11/12/18 09:00 11/12/18 09:00 11/12/18 09:00 11/12/18 09:00 Results - Labs CBC & Chem 7: 11/12/18 04:28 11/12/18 04:28 Labs: Laboratory Last Values WBC 5.7 K/mm3 (4.5-11.0) 11/12/18 04:28 RBC 3.26 M/mm3 (3.65-5.03) L 11/12/18 04:28 Hgb 9.6 gm/dl (10.1-14.3) L 11/12/18 04:28 Hct 29.2 % (30.3-42.9) L 11/12/18 04:28 MCV 89 fl (79-97) 11/12/18 04:28 MCH 30 pg (28-32) 11/12/18 04:28 MCHC 33 % (30-34) 11/12/18 04:28 RDW 14.3 % (13.2-15.2) 11/12/18 04:28 Plt Count 126 K/mm3 (140-440) L 11/12/18 04:28 Lymph % (Auto) 13.4 % (13.4-35.0) 11/10/18 09:52 [place] % (Auto) 14.8 % (0.0-7.3) H 11/10/18 09:52 Eos % (Auto) 1.6 % (0.0-4.3) 11/10/18 09:52 Baso % (Auto) 0.3 % (0.0-1.8) 11/10/18 09:52 Lymph # 0.6 K/mm3 (1.2-5.4) L 11/10/18 09:52 [place] # 0.7 K/mm3 (0.0-0.8) 11/10/18 09:52 Eos # 0.1 K/mm3 (0.0-0.4) 11/10/18 09:52 Baso # 0.0 K/mm3 (0.0-0.1) 11/10/18 09:52 Seg Neutrophils % 69.9 % (40.0-70.0) 11/10/18 09:52 Seg Neutrophils # 3.2 K/mm3 (1.8-7.7) 11/10/18 09:52 PT 15.2 Sec. (12.2-14.9) H 11/11/18 10:03 INR 1.23 (0.87-1.13) H 11/11/18 10:03 APTT 31.8 Sec. (24.2-36.6) 11/11/18 10:03 POC ABG pH 7.415 (7.35-7.45) 11/12/18 04:44 POC ABG pCO2 34.0 (35-45) L 11/12/18 04:44 POC ABG pO2 138 (80-105) H 11/12/18 04:44 POC ABG HCO3 21.8 (22-26 mml/L) 11/12/18 04:44 POC ABG Total CO2 23 (23-27mmol/L) 11/12/18 04:44 POC ABG O2 Sat 99 11/12/18 04:44 POC ABG Base Excess -3 ((-2) - (+3)mmol/L) 11/12/18 04:44 30 % 11/12/18 04:44 Sodium 140 mmol/L (137-145) 11/12/18 04:28 Potassium 5.2 mmol/L (3.6-5.0) H 11/12/18 04:28 Chloride 109.9 mmol/L (98-107) H 11/12/18 04:28 Carbon Dioxide 20 mmol/L (22-30) L 11/12/18 04:28 15 mmol/L 11/12/18 04:28 BUN 40 mg/dL (7-17) H 11/12/18 04:28 2.2 mg/dL (0.7-1.2) H 11/12/18 04:28 Estimated GFR 21 ml/min 11/12/18 04:28 18 % 11/12/18 04:28 Glucose 112 mg/dL (65-100) H 11/12/18 04:28 POC Glucose 105 (70-105) 11/12/18 05:07 Lactic Acid 0.70 mmol/L (0.7-2.0) 11/09/18 04:12 Calcium 9.9 mg/dL (8.4-10.2) 11/12/18 04:28 Phosphorus 3.00 mg/dL (2.5-4.5) D 11/08/18 04:27 Magnesium 2.20 mg/dL (1.7-2.3) 11/05/18 16:31 0.40 mg/dL (0.1-1.2) 11/12/18 04:28 AST 27 units/L (5-40) 11/12/18 04:28 ALT 24 units/L (7-56) 11/12/18 04:28 66 units/L (35-129) 11/12/18 04:28 44.0 umol/L (25-60) 11/05/18 17:28 < 7 units/L (30-135) L 11/05/18 16:31 0.019 ng/mL (0.00-0.029) 11/05/18 16:31 3.50 mg/dL (0.00-1.30) H 11/07/18 15:48 5.9 g/dL (6.3-8.2) L 11/12/18 04:28 2.5 g/dL (3.9-5) L 11/12/18 04:28 0.7 % 11/12/18 04:28 TSH 0.972 mlU/mL (0.270-4.200) 11/05/18 16:31 Yellow (Yellow) 11/05/18 20:47 Slightly-cloudy (Clear) 11/05/18 20:47 5.0 (5.0-7.0) 11/05/18 20:47 Ur Specific [place] 1.016 (1.003-1.030) 11/05/18 20:47 100 mg/dl mg/dL (Negative) 11/05/18 20:47 50 mg/dL (Negative) 11/05/18 20:47 Neg mg/dL (Negative) 11/05/18 20:47 Sm (Negative) 11/05/18 20:47 Pos (Negative) 11/05/18 20:47 Neg (Negative) 11/05/18 20:47 < 2.0 mg/dL (<2.0) 11/05/18 20:47 Ur Leukocyte Esterase Tr (Negative) 11/05/18 20:47 19.0 /HPF (0.0-6.0) H 11/05/18 20:47 4.0 /HPF (0.0-6.0) 11/05/18 20:47 U Epithel Cells (Auto) 1.0 /HPF (0-13.0) 11/05/18 20:47 Few /HPF 11/05/18 20:47 None seen (None Seen) 11/06/18 14:48 155.8 mg/dL (0.1-20.0) H 11/06/18 Unknown 40 mmol/L 11/06/18 Unknown 68 mg/dL (5-11.8) H 11/06/18 Unknown Clear 11/11/18 Unknown Colorless 11/11/18 Unknown 10 /mm3 (1-10) 11/11/18 Unknown 22 /mm3 (0-0) 11/11/18 Unknown CSF Seg Neutrophils 0 % (0-6) 11/11/18 Unknown 37.8 % (40-80) 11/11/18 Unknown CSF Reactive Lymphs 0 % 11/11/18 Unknown 62.2 % (15-45) 11/11/18 Unknown 0 % 11/11/18 Unknown 0 % 11/11/18 Unknown C 11/11/18 Unknown 77 mg/dL 11/11/18 Unknown 57 mg/dL 11/11/18 Unknown Vancomycin Trough 17.5 ug/mL (5.0-20.0) 11/08/18 21:16 Random Vancomycin 22.4 ug/mL (0-40.0) 11/11/18 05:01 Salicylates < 0.3 mg/dL (2.8-20.0) L 11/05/18 16:31 Acetaminophen < 5.0 ug/mL (10.0-30.0) L 11/05/18 16:31 Plasma/Serum Alcohol < 0.01 % (0-0.07) 11/05/18 16:31 Active Medications - Current Medications Current Medications: Generic Name Dose Route Start Last Admin Trade Name Freq PRN Reason Stop Dose Admin Albuterol 2.5 mg 11/05/18 17:52 Proventil IH Q3HRT PRN Shortness Of Breath Lipase/Protease/Amylase 1 each 11/07/18 11:07 Pancreaze 10,500 Unit FEEDTUBE PRN PRN For Clogged Feeding Tube Carvedilol 6.25 mg 11/09/18 11:00 11/12/18 09:15 Coreg PO Not Given BID NIKKO Dextrose 50 ml 11/05/18 17:59 D50w (25gm) Syringe IV PRN PRN Hypoglycemia Famotidine 20 mg 11/11/18 10:00 11/12/18 09:15 Pepcid PO Not Given DAILY NIKKO Gabapentin 800 mg 11/08/18 10:00 11/12/18 09:15 Neurontin PO Not Given BID NIKKO Hydralazine HCl 10 mg 11/05/18 21:30 11/12/18 08:32 Apresoline IV 10 mg Q6HR PRN Administration Hypertension Hydrophilic Ointment 1 applic 11/05/18 16:21 Vaseline Lip Therapy TP Q2HR PRN Dry Lips Cefepime HCl 1 gm in 100 mls @ 200 mls/hr 11/11/18 22:00 11/11/18 21:57 Maxipime/Ns 1 Gm/100 Ml IV 200 mls/hr Q24H NIKKO Administration Protocol Sodium Chloride 1,000 mls @ 75 mls/hr 11/11/18 12:00 11/12/18 02:20 Nacl 0.9% 1000 Ml IV 75 mls/hr DIRECT NIKKO Administration Insulin Human Lispro 0 unit 11/06/18 12:00 11/12/18 06:29 Humalog SUB-Q Not Given Q6HR NIKKO Protocol Latanoprost 1 drops 11/08/18 18:00 11/11/18 18:50 Latanoprost 0.005% OU 1 drops QPM NIKKO Administration Miscellaneous Medication 1 drop 11/08/18 22:00 11/12/18 06:32 Brimonidine Tartate OP 1 drop BID NIKKO Administration Multi-Ingred Cream/Lotion/Oil/Oint 1 applic 11/05/18 16:21 Artificial Tears Ophth Oint OU Q4HR PRN Dry Eye(s) Pravastatin Sodium 20 mg 11/08/18 10:00 11/12/18 09:16 Pravachol PO Not Given DAILY NIKKO Ropinirole HCl 1 mg 11/08/18 09:00 11/12/18 09:15 Requip PO Not Given TID NIKKO Simple Syrup 15 ml 11/07/18 11:07 Simple Syrup FEEDTUBE PRN PRN Hypoglycemia Simple Syrup 30 ml 11/07/18 11:07 Simple Syrup FEEDTUBE PRN PRN Hypoglycemia Sodium Bicarbonate 325 mg 11/07/18 11:07 Sodium Bicarbonate FEEDTUBE PRN PRN For Clogged Feeding Tube Sodium Chloride 10 ml 11/05/18 22:00 11/12/18 06:28 Sodium Chloride Flush Syringe 10 Ml IV 10 ml BID NIKKO Administration Sodium Chloride 10 ml 11/05/18 17:52 Sodium Chloride Flush Syringe 10 Ml IV PRN PRN LINE FLUSH Nutrition/Malnutrition Assess - Dietary Evaluation Nutrition/Malnutrition Findings: Nutrition Notes Start: 11/06/18 16:18 Freq: Status: Active Protocol: Document 11/11/18 10:36 LP (Rec: 11/11/18 10:43 LP [id number]) Nutrition Notes Initial or Follow up Reassessment Current Diagnosis Acute Kidney Injury, Respiratory Failure Other Pertinent Diagnosis Encephalopathy Current Diet Promote at 55ml/hr Labs/Tests K 5.3 Pertinent Medications Reviewed Height 5 ft 5 in Weight 69.7 kg [place] Body Weight (kg) 56.81 BMI 25.5 Subjective/Other Information Pt tolerating TF at goal rate. Will need to change TF due to renal issues. Burn Absent Trauma Absent #1 Nutrition Diagnosis Inadequate oral intake Diagnosis Progress(for reassessment Continues documentation) Is patient on ventilator? Yes Is Patient Ambulatory and/or Out of Bed No REE-([facility]-confined to bed) [phone] Calculation Used for Recommendations [facility] Additional Notes Protein Needs: 84-139g (1.2-2g /kg) Fluid Needs: 1 ml/kcal Nutrition Intervention Change Diet Order: TF Nutrition Support: Change to Nepro at 30ml/hr Flush with 130ml q4h Kcal 1,296 Protein (gm) 58 Fluid (mL) 539 Goal #1 Meet at least 80% of kcal and protein needs Anticipated Discharge Needs: Unable to determine at this time Follow-Up By: 11/13/18 Additional Comments Follow for TF change, tolerance and renal labs
[2018-11-12] MEDS ORDERED: KIONEX PO NR (11:29)
--- NOTE | 2018-11-12 12:38 | Vascular Lab Report ---
DUPLEX DOPPLER LOWER EXTREMITY VEINS, BILATERAL INDICATION: Bilateral lower extremity swelling. TECHNIQUE: Duplex doppler imaging was performed through the veins of both lower extremities using venous segundo hilario and other maneuvers. COMPARISON: No relevant prior imaging study available. FINDINGS: Right Common femoral vein: Negative. Right Superficial femoral vein: Negative. Right Popliteal vein: Negative. Right Calf veins: Negative. Left Common femoral vein: Negative. Left Superficial femoral vein: Negative. Left Popliteal vein: Negative. Left Calf veins: Negative. Additional findings: None.. IMPRESSION: No sonographic evidence for DVT in either lower extremity. Signer Name: Michael Rodgers Jr, MD Signed: 11/12/2018 12:33 PM Workstation Name: [id number]
[2018-11-12] MEDS: LATANOPROST 0.005% OU SCH (18:37)
[2018-11-12] MEDS: ATIVAN IV PRN (21:25)
[2018-11-12] MEDS: MAXIPIME/NS 1 GM/100 ML 1 GM/100 ML BAG IV SCH (21:26)
[2018-11-13] MEDS: HumaLOG SUB-Q SCH ×4 (02:05→18:36)
[2018-11-13] MEDS: ATIVAN IV PRN (03:20)
[2018-11-13] MEDS: NACL 0.9% 1000 ML 1,000 ML IV SCH ×2 (03:20→17:25)
[2018-11-13 05:27] LABS: Hematocrit 25.7 % (30.3-42.9); Hemoglobin 8.6 gm/dl (10.1-14.3); Mean Corpuscular HGB Conc 33 % (30-34); Mean Corpuscular Volume 89 fl (79-97); Platelet Count 133 K/mm3 (140-440); Red Blood Count 2.89 M/mm3 (3.65-5.03); Red Cell Distribution Width 14.3 % (13.2-15.2)
[2018-11-13 05:53] LABS: Calcium 9.7 mg/dL (8.4-10.2)
[2018-11-13 08:34] LABS: Heparin-Induced Platelet Antib Negative (Negative); Unfractionated Heparin Negative (Negative)
--- NOTE | 2018-11-13 10:51 | Progress Note ---
Assessment and Plan Cultures: 11/05/2018 blood culture: 2/4 bottles (both sets) with Staph hominis 11/05/2018 urine culture: skin jama 11/05/2018 resp culture: oropharyngeal contamination. 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 Chest x-ray without evidence of pneumonia. UA with minimal pyuria, doubt UTI. Also with Staph hominis bacteremia. 2) Lactic acidosis: Lactate improved. CT abdomen and pelvis without contrast showed no acute endings. 3) Acute encephalopathy: Neurology following. ?related to seizures. MRI negative for acute process. CSF with no evidence of meningitis. Improving. 4) BRAD v/s CKD: Renally dose antibiotics, worsening. 5) Staph hominis bacteremia: 2/4 bottles (both sets) with GPC in clusters. TTE u nremarkable for valvular vegetations. Continue Vancomycin for 7 days. Repeat blood cultures negative. 6) MSSA in resp cultures: CXR without pneumonia. Recent CXRs more suggestive of atelectasis and possible b/l effusions. Most recent CXR shows increased pleuro- parenchyma density in the LLL. CT chest no pneumonia or effusion +atelectasis. 7) Acute respiratory failure: on supplemental oxygen. 8) Pancytopenia: better Recs: continue IV vancomycin, renally adjusted x 7 days from bacteremia clearance (ending 11/14/2018) continue cefepime renally adjusted D3 today, plan to d/c if blood cultures from 11/12/2018 remain negative monitor fever and renal function Will follow. Tia Farah MD, FACP [facility] ([facility] C: [phone] O: [phone] F: [phone] Subjective Date of service: 11/13/18 Principal diagnosis: Ac hypoxemic Resp Failure ; Possible Seizure; Ac. Met Encephalopathy; BRAD Interval history: No fever. Resting comfortably. Son at bedside. Patient denies any complaints. Objective - Exam Narrative Exam: Physical Exam: Constitutional: sleepy but easily awakened Head, Ears, Nose: Normocephalic, atraumatic. External ears, nose normal Eyes: Conjunctivae/corneas clear. No icterus. No ptosis. Neck: Supple, intubated Oral: edentulous, no thrush Cardiovascular: S1, S2 normal. Respiratory: Good air entry, clear to auscultation bilaterally GI: Soft, non-tender; bowel sounds normal. No peritoneal signs Musculoskeletal: No pedal edema, no cyanosis. Skin: No rash or abscess Hem/Lymphatic: No palpable cervical or supraclavicular nodes. No lymphangitis Psych: calm, no agitation Neurological: sleepy but easily awakened - Constitutional Vitals: Vital Signs Temp Pulse Resp BP Pulse Ox 97.8 F 78 18 120/48 98 11/13/18 08:00 11/13/18 08:00 11/13/18 08:00 11/13/18 08:00 11/13/18 08:00 Temperature -Last 24 Hours Temperature 97.8 F Temperature 98.8 F Temperature 98.5 F Temperature 98.9 F Temperature 98.4 F Temperature 97.3 F - Labs CBC & Chem 7: 11/13/18 04:49 11/13/18 04:49 Labs: Abnormal lab results 11/13/18 11/13/18 Range/Units 04:49 04:49 RBC 2.89 L (3.65-5.03) M/mm3 Hgb 8.6 L (10.1-14.3) gm/dl Hct 25.7 L (30.3-42.9) % Plt Count 133 L (140-440) K/mm3 Potassium 5.1 H (3.6-5.0) mmol/L Chloride 113.7 H (98-107) mmol/L Carbon Dioxide 21 L (22-30) mmol/L BUN 44 H (7-17) mg/dL Creatinine 2.3 H (0.7-1.2) mg/dL - Imaging and cardiology Venous US: report reviewed, image reviewed (no DVT)
[2018-11-13] MEDS: BRIMONIDINE OP SCH ×2 (11:00→22:30)
--- NOTE | 2018-11-13 11:21 | Progress Note ---
Assessment and Plan Acute Renal Failure likely secondary to ischemic ATN, no obstruction: S/p Hypokalemia: S/P Hypernatremia: Hyperkalemia: -Renal labs reviewed. Serum creatinine 2.3 today, yesterday's was 2.2 -24 hour urine collection for creatinine clearance ordered, urine collection in progress -On IV hydration with NS@ 75 ml/hr -Renal ultrasound-negative -Monitor I/O's -Avoid nephrotoxic agents -Obtain daily weights -Continue to monitor renal function closely SIRS versus sepsis: -On empiric IV cefepime and vancomycin -ID onboard Acute encephalopathy: Possible Seizures -Neurology onboard Acute Hypoxic Respiratory Failure: -On Oxygen via NC as per Pulmonary Subjective Date of service: 11/13/18 Principal diagnosis: Ac hypoxemic Resp Failure ; Possible Seizure; Ac. Met Encephalopathy; BRAD Interval history: Patient seen lying in bed. On oxygen via NC. Son at bedside. Son states patient is asking for food. Objective - Vital Signs Vital signs: Vital Signs - 12hr 11/13/18 11/13/18 11/13/18 00:00 00:15 01:00 Temperature 98.5 F Pulse Rate 98 H 104 H 95 H Respiratory 21 20 19 Rate Blood Pressure 132/58 132/58 121/53 O2 Sat by Pulse 95 98 96 Oximetry 11/13/18 11/13/18 11/13/18 02:00 03:00 04:00 Temperature 98.8 F Pulse Rate 105 H 117 H 92 H Respiratory 15 27 H 21 Rate Blood Pressure 148/66 179/155 179/155 O2 Sat by Pulse 100 96 Oximetry 11/13/18 11/13/18 11/13/18 05:00 05:05 06:00 Temperature Pulse Rate 97 H 91 H 110 H Respiratory 19 20 22 Rate Blood Pressure 143/43 143/43 141/66 O2 Sat by Pulse 98 100 99 Oximetry 11/13/18 11/13/18 07:00 08:00 Temperature 97.8 F Pulse Rate 93 H 81 Respiratory 19 18 Rate Blood Pressure 128/52 120/48 O2 Sat by Pulse 98 98 Oximetry - General Appearance General appearance: well-developed, fatigue EENT: ATNC, PERRL Neck: no JVD, supple Respiratory: Present: Decreased Breath Sounds, Other (on oxygen via NC) Cardiology: S1S2 Gastrointestinal: normoactive bowel sounds Integumentary: warm and dry Neurologic: other (Awake, moves head ) Musculoskeletal: other (mild edema) - Lab 11/13/18 04:49 11/13/18 04:49 Most recent lab results Calcium 9.7 mg/dL (8.4-10.2) 11/13/18 04:49 Phosphorus 3.00 mg/dL (2.5-4.5) D 11/08/18 04:27 Magnesium 2.20 mg/dL (1.7-2.3) 11/05/18 16:31 155.8 mg/dL (0.1-20.0) H 11/06/18 Unknown 40 mmol/L 11/06/18 Unknown 68 mg/dL (5-11.8) H 11/06/18 Unknown Medications & Allergies - Medications Allergies/Adverse Reactions: Allergies aspirin Allergy (Verified 11/06/18 17:06) Unknown Home Medications: Home Medications Medication Instructions Recorded Confirmed Last Taken Type Carvedilol [Coreg] 25 mg PO BID 11/06/18 11/06/18 Unknown History Furosemide [Lasix TAB] 20 mg PO HS 11/06/18 11/06/18 Unknown History Furosemide [Lasix TAB] 40 mg PO QAM 11/06/18 11/06/18 Unknown History Gabapentin [Neurontin] 800 mg PO BID 11/06/18 11/06/18 Unknown History Pravastatin Sodium [Pravastatin] 20 mg PO DAILY 11/06/18 11/06/18 Unknown Hi story Ropinirole HCl [Requip] 1 mg PO TID 11/06/18 11/06/18 Unknown History Brimonidine Tartrate [Brimonidine 1 drop OU BID 11/08/18 11/08/18 Unknown History Tartrate 0.2%] Active Medications: Generic Name Dose Route Start Last Admin Trade Name Freq PRN Reason Stop Dose Admin Albuterol 2.5 mg 11/05/18 17:52 11/12/18 20:15 Proventil IH 2.5 mg Q3HRT PRN Administration Shortness Of Breath Lipase/Protease/Amylase 1 each 11/07/18 11:07 Nohemy Cruz 10,500 Unit FEEDTUBE PRN PRN For Clogged Feeding Tube Carvedilol 6.25 mg 11/09/18 11:00 11/12/18 21:27 Coreg PO Not Given BID NIKKO Dextrose 50 ml 11/05/18 17:59 D50w (25gm) Syringe IV PRN PRN Hypoglycemia Famotidine 20 mg 11/11/18 10:00 11/12/18 09:15 Pepcid PO Not Given DAILY NIKKO Gabapentin 800 mg 11/08/18 10:00 11/12/18 21:27 Neurontin PO Not Given BID NIKKO Hydralazine HCl 10 mg 11/05/18 21:30 11/12/18 19:59 Apresoline IV 10 mg Q6HR PRN Administration Hypertension Hydrophilic Ointment 1 applic 11/05/18 16:21 Vaseline Lip Therapy TP Q2HR PRN Dry Lips Cefepime HCl 1 gm in 100 mls @ 200 mls/hr 11/11/18 22:00 11/12/18 21:26 Maxipime/Ns 1 Gm/100 Ml IV 200 mls/hr Q24H NIKKO Administration Protocol Sodium Chloride 1,000 mls @ 75 mls/hr 11/11/18 12:00 11/13/18 03:20 Nacl 0.9% 1000 Ml IV 75 mls/hr DIRECT NIKKO Administration Vancomycin HCl 1 gm in 250 mls @ 167.007 mls/hr 11/13/18 12:00 Vancomycin/Ns 1 Gm/250 Ml IV 11/13/18 13:29 ONCE ONE Insulin Human Lispro 0 unit 11/06/18 12:00 11/13/18 06:26 Humalog SUB-Q Not Given Q6HR [facility] Protocol Latanoprost 1 drops 11/08/18 18:00 11/12/18 18:37 Latanoprost 0.005% OU 1 drops QPM NIKKO Administration Lorazepam 1 mg 11/12/18 20:33 11/13/18 03:20 Ativan IV 1 mg Q4H PRN Administration Agitation; anxiety Miscellaneous Medication 1 drop 11/08/18 22:00 11/12/18 21:29 Brimonidine Tartate OP 1 drop BID NIKKO Administration Multi-Ingred Cream/Lotion/Oil/Oint 1 applic 11/05/18 16:21 Artificial Tears Ophth Oint OU Q4HR PRN Dry Eye(s) Pravastatin Sodium 20 mg 11/08/18 10:00 11/12/18 09:16 Pravachol PO Not Given DAILY [facility] Ropinirole HCl 1 mg 11/08/18 09:00 11/12/18 21:27 Requip PO Not Given TID NIKKO Simple Syrup 15 ml 11/07/18 11:07 Simple Syrup FEEDTUBE PRN PRN Hypoglycemia Simple Syrup 30 ml 11/07/18 11:07 Simple Syrup FEEDTUBE PRN PRN Hypoglycemia Sodium Bicarbonate 325 mg 11/07/18 11:07 Sodium Bicarbonate FEEDTUBE PRN PRN For Clogged Feeding Tube Sodium Chloride 10 ml 11/05/18 22:00 11/12/18 21:28 Sodium Chloride Flush Syringe 10 Ml IV 10 ml BID NIKKO Administration Sodium Chloride 10 ml 11/05/18 17:52 Sodium Chloride Flush Syringe 10 Ml IV PRN PRN LINE FLUSH
[2018-11-13] MEDS ORDERED: VANCOMYCIN/NS 1 GM/250 ML 1 GM/250 ML BAG IV ONE (12:00)
--- NOTE | 2018-11-13 12:18 | Progress Note ---
Assessment and Plan Assessment and plan: Patient is a 82 yo woman with a history of hypertension, dyslipidemia, OA s/p bilateral TKR and possible CHF who presented to [facility] ED with AMS. Apparently, patient was found unresponsive in the bed and seizing. On EMS arrival patient was noted to have a GCS of 3 and was placed on oxygen mask and intubated in the ED on arrival. Initial Temp was noted as 102.2. In the ED patient was intubated due to AMS and Acute Hypoxemic Respiratory Failure, and is unable to protect her airway, Teleneurology consulted in ED. Pt deemed not a candidate for TPA. No prior admission for review, first visit in our EMR. Also, her is in Hospice for metastatic cancer per son Lauro. * CXR: worsening left lobar infiltrate * Renal us: Small left renal cyst, negative for obstruction or mass * MRI Head: negative for acute pathology * Culture: Staph homis in blood * MSSA trach culture * CT chest wo contrast 11/11/18 IMPRESSION: Small pleural effusions, left greater than right. Basilar consolidation is probably secondary to atelectasis and less likely pneumonia. The remainder of the lungs appear clear. Acute hypoxic respiratory failure, poa: currently extubated on Sunday11/11/18, off Bipap, on high flow Pulm is following MSSA Sepsis Left Lobar Pneumonia: Continue Abx, ID following. Staph Hominis Bacteremia: Repeat blood cultures, ID following Hyperkalemia: treated with kayexalate and monitor bmp closely, Nephrology is following Acute cystitis: treat with Abx, monitor bmp closely Hypertensive Urgency: Resume Coreg, Hydrazine Status Epilepticus, poa: Neurology is following, treat with prn IV ativan Lactic Acidosis, treat with renal failure Hypernatermia resolved: monitor bmp closely Acute Metabolic Encephalopathy Thrombocytopenia; improving, monitor CBC closely ARF due to suspect ATN, poa: Nephrology following. Rght breast IV line was not removed yesterday but RN removed today and right EJ not remove because IV PICC nurse would not do midline due to bacteremia [place] was removed yesterday but replaced by Nephrology for 24 hour urine collection Repeat blood cultures was negative CCT 32 minutes History Interval history: Patient was seen and examined. Follow-up on current diagnosis of AMS and respiratory failure. No overnight events reported to me. Imaging, nursing note, chart, labs and old chart reviewed. Discussed with violet Restrepo at bedside Hospitalist Physical - Physical exam Narrative exam: Gen: ill appearing, mild increase in accessory muscles, off bipap on high flow O2, lethargic HEENT: NCAT, EOMI, PERRL, OP Clear Neck: supple, no adenopathy, no thyromegaly, no JVD CVS/Heart: Regular tachycardia normal S1S2, pulses present bilaterally Chest/Lungs: tachypneic, diminished bs bilatearal, Symmetrical chest expansion, good air entry bilaterally GI/Abdomen: soft, NTND, good bowel sounds, no guarding or rebound /Bladder: no suprapubic tenderness, no CVA or paraspinal tenderness Extermity/Skin: dependent edema, pale skin MSK: doesn't follow commands Neuro: CN 2-12 grossly intact, not following commands Psych: calm - Constitutional Vitals: Temp Pulse Resp BP Pulse Ox 97.8 F 95 H 20 160/63 100 11/13/18 08:00 11/13/18 11:01 11/13/18 11:01 11/13/18 11:01 11/13/18 12:06 General appearance: Absent: severe distress Results - Labs CBC & Chem 7: 11/13/18 04:49 11/13/18 04:49 Labs: Laboratory Last Values WBC 5.6 K/mm3 (4.5-11.0) 11/13/18 04:49 RBC 2.89 M/mm3 (3.65-5.03) L 11/13/18 04:49 Hgb 8.6 gm/dl (10.1-14.3) L 11/13/18 04:49 Hct 25.7 % (30.3-42.9) L 11/13/18 04:49 MCV 89 fl (79-97) 11/13/18 04:49 MCH 30 pg (28-32) 11/13/18 04:49 MCHC 33 % (30-34) 11/13/18 04:49 RDW 14.3 % (13.2-15.2) 11/13/18 04:49 Plt Count 133 K/mm3 (140-440) L 11/13/18 04:49 Lymph % (Auto) 13.4 % (13.4-35.0) 11/10/18 09:52 [place] % (Auto) 14.8 % (0.0-7.3) H 11/10/18 09:52 Eos % (Auto) 1.6 % (0.0-4.3) 11/10/18 09:52 Baso % (Auto) 0.3 % (0.0-1.8) 11/10/18 09:52 Lymph # 0.6 K/mm3 (1.2-5.4) L 11/10/18 09:52 [place] # 0.7 K/mm3 (0.0-0.8) 11/10/18 09:52 Eos # 0.1 K/mm3 (0.0-0.4) 11/10/18 09:52 Baso # 0.0 K/mm3 (0.0-0.1) 11/10/18 09:52 Seg Neutrophils % 69.9 % (40.0-70.0) 11/10/18 09:52 Seg Neutrophils # 3.2 K/mm3 (1.8-7.7) 11/10/18 09:52 PT 15.2 Sec. (12.2-14.9) H 11/11/18 10:03 INR 1.23 (0.87-1.13) H 11/11/18 10:03 APTT 31.8 Sec. (24.2-36.6) 11/11/18 10:03 Heparin Anti-Xa, Unfract Negative (Negative) 11/08/18 13:49 POC ABG pH 7.415 (7.35-7.45) 11/12/18 04:44 POC ABG pCO2 34.0 (35-45) L 11/12/18 04:44 POC ABG pO2 138 (80-105) H 11/12/18 04:44 POC ABG HCO3 21.8 (22-26 mml/L) 11/12/18 04:44 POC ABG Total CO2 23 (23-27mmol/L) 11/12/18 04:44 POC ABG O2 Sat 99 11/12/18 04:44 POC ABG Base Excess -3 ((-2) - (+3)mmol/L) 11/12/18 04:44 30 % 11/12/18 04:44 Sodium 144 mmol/L (137-145) 11/13/18 04:49 Potassium 5.1 mmol/L (3.6-5.0) H 11/13/18 04:49 Chloride 113.7 mmol/L (98-107) H 11/13/18 04:49 Carbon Dioxide 21 mmol/L (22-30) L 11/13/18 04:49 14 mmol/L 11/13/18 04:49 BUN 44 mg/dL (7-17) H 11/13/18 04:49 2.3 mg/dL (0.7-1.2) H 11/13/18 04:49 Estimated GFR 20 ml/min 11/13/18 04:49 19 % 11/13/18 04:49 Glucose 93 mg/dL (65-100) 11/13/18 04:49 POC Glucose 94 (70-105) 11/13/18 05:47 Lactic Acid 0.70 mmol/L (0.7-2.0) 11/09/18 04:12 Calcium 9.7 mg/dL (8.4-10.2) 11/13/18 04:49 Phosphorus 3.00 mg/dL (2.5-4.5) D 11/08/18 04:27 Magnesium 2.20 mg/dL (1.7-2.3) 11/05/18 16:31 0.40 mg/dL (0.1-1.2) 11/12/18 04:28 AST 27 units/L (5-40) 11/12/18 04:28 ALT 24 units/L (7-56) 11/12/18 04:28 66 units/L (35-129) 11/12/18 04:28 44.0 umol/L (25-60) 11/05/18 17:28 < 7 units/L (30-135) L 11/05/18 16:31 0.019 ng/mL (0.00-0.029) 11/05/18 16:31 3.50 mg/dL (0.00-1.30) H 11/07/18 15:48 5.9 g/dL (6.3-8.2) L 11/12/18 04:28 2.5 g/dL (3.9-5) L 11/12/18 04:28 0.7 % 11/12/18 04:28 TSH 0.972 mlU/mL (0.270-4.200) 11/05/18 16:31 Yellow (Yellow) 11/05/18 20:47 Slightly-cloudy (Clear) 11/05/18 20:47 5.0 (5.0-7.0) 11/05/18 20:47 Ur Specific [place] 1.016 (1.003-1.030) 11/05/18 20:47 100 mg/dl mg/dL (Negative) 11/05/18 20:47 50 mg/dL (Negative) 11/05/18 20:47 Neg mg/dL (Negative) 11/05/18 20:47 Sm (Negative) 11/05/18 20:47 Pos (Negative) 11/05/18 20:47 Neg (Negative) 11/05/18 20:47 < 2.0 mg/dL (<2.0) 11/05/18 20:47 Ur Leukocyte Esterase Tr (Negative) 11/05/18 20:47 19.0 /HPF (0.0-6.0) H 11/05/18 20:47 4.0 /HPF (0.0-6.0) 11/05/18 20:47 U Epithel Cells (Auto) 1.0 /HPF (0-13.0) 11/05/18 20:47 Few /HPF 11/05/18 20:47 None seen (None Seen) 11/06/18 14:48 155.8 mg/dL (0.1-20.0) H 11/06/18 Unknown 40 mmol/L 11/06/18 Unknown 68 mg/dL (5-11.8) H 11/06/18 Unknown Clear 11/11/18 Unknown Colorless 11/11/18 Unknown 10 /mm3 (1-10) 11/11/18 Unknown 22 /mm3 (0-0) 11/11/18 Unknown CSF Seg Neutrophils 0 % (0-6) 11/11/18 Unknown 37.8 % (40-80) 11/11/18 Unknown CSF Reactive Lymphs 0 % 11/11/18 Unknown 62.2 % (15-45) 11/11/18 Unknown 0 % 11/11/18 Unknown 0 % 11/11/18 Unknown C 11/11/18 Unknown 77 mg/dL 11/11/18 Unknown 57 mg/dL 11/11/18 Unknown Vancomycin Trough 17.5 ug/mL (5.0-20.0) 11/08/18 21:16 Random Vancomycin 22.4 ug/mL (0-40.0) 11/11/18 05:01 Salicylates < 0.3 mg/dL (2.8-20.0) L 11/05/18 16:31 Acetaminophen < 5.0 ug/mL (10.0-30.0) L 11/05/18 16:31 Plasma/Serum Alcohol < 0.01 % (0-0.07) 11/05/18 16:31 Heparin-induced Plt Ab Negative (Negative) 11/08/18 13:49 UF Heparin High Dose 0 % Release 11/08/18 13:49 KIANNA UFH Low Dose 0.1 0 % Release 11/08/18 13:49 KIANNA UFH Low Dose 0.5 0 % Release 11/08/18 13:49 Active Medications - Current Medications Current Medications: Generic Name Dose Route Start Last Admin Trade Name Robinsonq PRN Reason Stop Dose Admin Albuterol 2.5 mg 11/05/18 17:52 11/12/18 20:15 Proventil IH 2.5 mg Q3HRT PRN Administration Shortness Of Breath Lipase/Protease/Amylase 1 each 11/07/18 11:07 Pancreaze 10,500 Unit FEEDTUBE PRN PRN For Clogged Feeding Tube Carvedilol 6.25 mg 11/09/18 11:00 11/12/18 21:27 Coreg PO Not Given BID NIKKO Dextrose 50 ml 11/05/18 17:59 D50w (25gm) Syringe IV PRN PRN Hypoglycemia Famotidine 20 mg 11/11/18 10:00 11/12/18 09:15 Pepcid PO Not Given DAILY NIKKO Gabapentin 800 mg 11/08/18 10:00 11/12/18 21:27 Neurontin PO Not Given BID NIKKO Hydralazine HCl 10 mg 11/05/18 21:30 11/12/18 19:59 Apresoline IV 10 mg Q6HR PRN Administration Hypertension Hydrophilic Ointment 1 applic 11/05/18 16:21 Vaseline Lip Therapy TP Q2HR PRN Dry Lips Cefepime HCl 1 gm in 100 mls @ 200 mls/hr 11/11/18 22:00 11/12/18 21:26 Maxipime/Ns 1 Gm/100 Ml IV 200 mls/hr Q24H NIKKO Administration Protocol Sodium Chloride 1,000 mls @ 75 mls/hr 11/11/18 12:00 11/13/18 03:20 Nacl 0.9% 1000 Ml IV 75 mls/hr DIRECT NIKKO Administration Vancomycin HCl 1 gm in 250 mls @ 167.007 mls/hr 11/13/18 12:00 Vancomycin/Ns 1 Gm/250 Ml IV 11/13/18 13:29 ONCE ONE Insulin Human Lispro 0 unit 11/06/18 12:00 11/13/18 06:26 Humalog SUB-Q Not Given Q6HR NIKKO Protocol Latanoprost 1 drops 11/08/18 18:00 11/12/18 18:37 Latanoprost 0.005% OU 1 drops QPM NIKKO Administration Lorazepam 1 mg 11/12/18 20:33 11/13/18 03:20 Ativan IV 1 mg Q4H PRN Administration Agitation; anxiety Miscellaneous Medication 1 drop 11/08/18 22:00 11/12/18 21:29 Brimonidine Tartate OP 1 drop BID NIKKO Administration Multi-Ingred Cream/Lotion/Oil/Oint 1 applic 11/05/18 16:21 Artificial Tears Ophth Oint OU Q4HR PRN Dry Eye(s) Pravastatin Sodium 20 mg 11/08/18 10:00 11/12/18 09:16 Pravachol PO Not Given DAILY NIKKO Ropinirole HCl 1 mg 11/08/18 09:00 11/12/18 21:27 Requip PO Not Given TID NIKKO Simple Syrup 15 ml 11/07/18 11:07 Simple Syrup FEEDTUBE PRN PRN Hypoglycemia Simple Syrup 30 ml 11/07/18 11:07 Simple Syrup FEEDTUBE PRN PRN Hypoglycemia Sodium Bicarbonate 325 mg 11/07/18 11:07 Sodium Bicarbonate FEEDTUBE PRN PRN For Clogged Feeding Tube Sodium Chloride 10 ml 11/05/18 22:00 11/12/18 21:28 Sodium Chloride Flush Syringe 10 Ml IV 10 ml BID NIKKO Administration Sodium Chloride 10 ml 11/05/18 17:52 Sodium Chloride Flush Syringe 10 Ml IV PRN PRN LINE FLUSH Nutrition/Malnutrition Assess - Dietary Evaluation Nutrition/Malnutrition Findings: Nutrition Notes Start: 11/06/18 16:18 Freq: Status: Active Protocol: Document 11/11/18 10:36 LP (Rec: 11/11/18 10:43 LP [id number]) Nutrition Notes Initial or Follow up Reassessment Current Diagnosis Acute Kidney Injury, Respiratory Failure Other Pertinent Diagnosis Encephalopathy Current Diet Promote at 55ml/hr Labs/Tests K 5.3 Pertinent Medications Reviewed Height 5 ft 5 in Weight 69.7 kg [place] Body Weight (kg) 56.81 BMI 25.5 Subjective/Other Information Pt tolerating TF at goal rate. Will need to change TF due to renal issues. Burn Absent Trauma Absent #1 Nutrition Diagnosis Inadequate oral intake Diagnosis Progress(for reassessment Continues documentation) Is patient on ventilator? Yes Is Patient Ambulatory and/or Out of Bed No REE-(M[place]-St. Jeor-confined to bed) 1390.584 Calculation Used for Recommendations [place]-St Jeor Additional Notes Protein Needs: 84-139g (1.2-2g /kg) Fluid Needs: 1 ml/kcal Nutrition Intervention Change Diet Order: TF Nutrition Support: Change to [place] at 30ml/hr Flush with 130ml q4h Kcal 1,296 Protein (gm) 58 Fluid (mL) 539 Goal #1 Meet at least 80% of kcal and protein needs Anticipated Discharge Needs: Unable to determine at this time Follow-Up By: 11/13/18 Additional Comments Follow for TF change, tolerance and renal labs
--- NOTE | 2018-11-13 12:48 | Progress Note ---
Assessment and Plan Acute Respiratory Failure with Hypoxia Gram positive bacteremia (in clusters) Possible Seizure Lactic Acidosis Hypernatermia Acute Metabolic Encephalopathy BRAD possible secondary to Ischemic ATN Thrombocytopenia Hypokalemia - give daytime breaks off BIPAP as tolerated (Scheduled BIPAP qhs) - HFNC during the day - continue aspiration precautions - ST evaluation - continue supplemental oxygen as needed to keep O2 sat's > 90% - continue lung protective strategies - daily CXR and ABG in short term - follow CSF studies (NGTD) - continue to avoid sedatives - follow HIT assay - Coreg reduced further to 6.25 mg bid - MRI negative for acute process - 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% (no vegetations) - EEG report pending - discontinued mkcoy catheter - continue bronchodilators with pulmonary hygiene per RT - complete antibiotics per ID rec's - continue enteral nutrition as tolerated - continue accuchecks with glycemic control per SSI for target blood glucose <180mg/dL - Agitation management - Prevention of delirium, maintenance of sleep-wake cycle - Azotemia per nephrology; continue gentle hydration - Avoid nephrotoxic agents, adjust all antibiotics and medications for CrCL and GFR - VTE and Stress ulcer prophylaxis - continue other care per attending / other consultants .... careplan discussed at length with family at bedside ... re-evaluate in am & prn CONDITION: CRITICAL PROGNOSIS: GRAVE to GUARDED CODE STATUS: FULL CODE The high probability of a clinically significant, sudden or life-threatening deterioration of the [respiratory, cardiac and neurologic] system(s) required my full and direct attention, intervention and personal management. The aggregate critical care time was [32] minutes without overlap. Time includes spent on; [x] Data Review and interpretation [x] Patient assessment and monitoring of vital signs [x] Documentation [x] Medication orders and management Subjective Date of service: 11/13/18 Principal diagnosis: Ac hypoxemic Resp Failure ; Possible Seizure; Ac. Met Encephalopathy; BRAD Interval history: Patient is seen today for: Acute Respiratory Failure with Hypoxemia; Gram positive bacteremia (in clusters); Possible Seizure; Lactic Acidosis; Hypernatermia; Acute Metabolic Encephalopathy; BRAD possible secondary to Ischemic ATN Seen and examined at bedside; 24hour events reviewed; nursing and respiratory care staff consulted; no adverse overnight events reported to me; resting peacefully in bed; tolerating more time off BIPAP; still somnolent to lethargic; no N/V/F/C Objective Vital Signs - 12hr 11/13/18 11/13/18 11/13/18 01:00 02:00 03:00 Temperature Pulse Rate 95 H 105 H 117 H Respiratory 19 15 27 H Rate Blood Pressure 121/53 148/66 179/155 O2 Sat by Pulse 96 100 96 Oximetry 11/13/18 11/13/18 11/13/18 04:00 05:00 05:05 Temperature 98.8 F Pulse Rate 92 H 97 H 91 H Respiratory 21 19 20 Rate Blood Pressure 179/155 143/43 143/43 O2 Sat by Pulse 98 100 Oximetry 11/13/18 11/13/18 11/13/18 06:00 07:00 08:00 Temperature 97.8 F Pulse Rate 110 H 93 H 81 Respiratory 22 19 18 Rate Blood Pressure 141/66 128/52 120/48 O2 Sat by Pulse 99 98 98 Oximetry 11/13/18 11/13/18 11/13/18 09:00 10:01 11:01 Temperature Pulse Rate 86 85 95 H Respiratory 18 17 20 Rate Blood Pressure 110/53 154/55 160/63 O2 Sat by Pulse 98 95 96 Oximetry 11/13/18 11/13/18 12:00 12:06 Temperature 97.9 F Pulse Rate Respiratory Rate Blood Pressure O2 Sat by Pulse 100 Oximetry Constitutional: appears uncomfortable, other (elderly looking CF, normocephalic and astraumatic with mildly increased respiratory effort on MVS) Eyes: non-icteric ENT: oropharynx moist, other (extubated) Neck: supple, no lymphadenopathy, no JVD, other (no thyromegaly) Effort: mildly labored Ascultation: Bilateral: diminished breath sounds, rhonchi (bases) Percussion: Bilateral: not dull Cardiovascular: regular rate and rhythm, murmur noted (systolic) Gastrointestinal: normoactive bowel sounds, soft, non-tender, non-distended Integumentary: normal Extremities: no cyanosis, no edema, pink and warm, pulses normal, no ischemia or petechiae Neurologic: non-focal exam (grossly), pupils equal and round, CN II-XII normal, unable to assess Psychiatric: other (unable to assess re: AMS) CBC and BMP: 11/15/18 05:30 11/15/18 04:00 ABG, PT/INR, D-dimer: ABG POC ABG pH 7.415 (7.35-7.45) 11/12/18 04:44 POC ABG pCO2 34.0 (35-45) L 11/12/18 04:44 POC ABG pO2 138 (80-105) H 11/12/18 04:44 POC ABG HCO3 21.8 (22-26 mml/L) 11/12/18 04:44 POC ABG Total CO2 23 (23-27mmol/L) 11/12/18 04:44 POC ABG O2 Sat 99 11/12/18 04:44 PT/INR, D-dimer PT 15.2 Sec. (12.2-14.9) H 11/11/18 10:03 INR 1.23 (0.87-1.13) H 11/11/18 10:03 Abnormal lab findings: Abnormal Labs 11/05/18 11/05/18 11/05/18 16:31 16:31 16:31 WBC RBC Hgb Hct Plt Count 139 L [place] % (Auto) Lymph # 0.7 L Seg Neutrophils % 78.8 H PT INR POC ABG pH POC ABG pCO2 POC ABG pO2 Sodium 148 H Potassium 3.2 L Chloride 110.6 H Carbon Dioxide 17 L BUN 18 H Creatinine 1.9 H Glucose 205 H POC Glucose Lactic Acid 8.20 H* Calcium 10.9 H Phosphorus Total Creatine Kinase C-Reactive Protein Total Protein Albumin 3.6 L Urine WBC (Auto) Urine Creatinine Urine Total Protein Salicylates Acetaminophen 11/05/18 11/05/18 11/05/18 16:31 16:31 16:31 WBC RBC Hgb Hct Plt Count [place] % (Auto) Lymph # Seg Neutrophils % PT INR POC ABG pH POC ABG pCO2 POC ABG pO2 Sodium Potassium Chloride Carbon Dioxide BUN Creatinine Glucose POC Glucose Lactic Acid Calcium Phosphorus Total Creatine Kinase < 7 L C-Reactive Protein Total Protein Albumin Urine WBC (Auto) Urine Creatinine Urine Total Protein Salicylates < 0.3 L Acetaminophen < 5.0 L 11/05/18 11/05/18 11/05/18 17:29 17:42 20:47 WBC RBC Hgb Hct Plt Count [place] % (Auto) Lymph # Seg Neutrophils % PT INR POC ABG pH POC ABG pCO2 33.4 L POC ABG pO2 136 H Sodium Potassium Chloride Carbon Dioxide BUN Creatinine Glucose POC Glucose Lactic Acid 3.30 H* Calcium Phosphorus Total Creatine Kinase C-Reactive Protein Total Protein Albumin Urine WBC (Auto) 19.0 H Urine Creatinine Urine Total Protein Salicylates Acetaminophen 11/05/18 11/05/18 11/06/18 20:47 22:42 04:09 WBC 4.4 L RBC Hgb Hct Plt Count 102 L [place] % (Auto) 13.2 H Lymph # 1.0 L Seg Neutrophils % PT INR POC ABG pH POC ABG pCO2 POC ABG pO2 Sodium Potassium Chloride Carbon Dioxide BUN Creatinine Glucose POC Glucose 121 H Lactic Acid Calcium Phosphorus Total Creatine Kinase C-Reactive Protein Total Protein Albumin Urine WBC (Auto) Urine Creatinine 166.9 H Urine Total Protein Salicylates Acetaminophen 11/06/18 11/06/18 11/06/18 04:09 05:05 07:31 WBC RBC Hgb Hct Plt Count [place] % (Auto) Lymph # Seg Neutrophils % PT INR POC ABG pH 7.509 H POC ABG pCO2 < 30 L POC ABG pO2 115 H Sodium 150 H Potassium 2.7 L* Chloride 118.2 H Carbon Dioxide 21 L BUN 21 H Creatinine 1.6 H Glucose 125 H POC Glucose Lactic Acid 2.50 H* Calcium Phosphorus Total Creatine Kinase C-Reactive Protein Total Protein 5.7 L Albumin 3.1 L Urine WBC (Auto) Urine Creatinine Urine Total Protein Salicylates Acetaminophen 11/06/18 11/06/18 11/06/18 12:04 16:21 18:04 WBC RBC Hgb Hct Plt Count [place] % (Auto) Lymph # Seg Neutrophils % PT INR POC ABG pH POC ABG pCO2 POC ABG pO2 Sodium Potassium 5.4 H D Chloride Carbon Dioxide BUN Creatinine Glucose POC Glucose 122 H 110 H Lactic Acid Calcium Phosphorus Total Creatine Kinase C-Reactive Protein Total Protein Albumin Urine WBC (Auto) Urine Creatinine Urine Total Protein Salicylates Acetaminophen 11/06/18 11/06/18 11/07/18 21:28 Unknown 04:02 WBC RBC Hgb Hct Plt Count [place] % (Auto) Lymph # Seg Neutrophils % PT INR POC ABG pH POC ABG pCO2 POC ABG pO2 Sodium 152 H Potassium Chloride 123.4 H Carbon Dioxide 20 L BUN 23 H Creatinine 1.5 H Glucose 111 H POC Glucose 125 H Lactic Acid Calcium Phosphorus 1.00 L Total Creatine Kinase C-Reactive Protein Total Protein Albumin Urine WBC (Auto) Urine Creatinine 155.8 H Urine Total Protein 68 H Salicylates Acetaminophen 11/07/18 11/07/18 11/07/18 09:07 11:05 15:48 WBC 4.1 L RBC 3.62 L Hgb Hct Plt Count 77 L [place] % (Auto) Lymph # Seg Neutrophils % PT INR POC ABG pH 7.314 L POC ABG pCO2 POC ABG pO2 Sodium Potassium Chloride Carbon Dioxide BUN Creatinine Glucose POC Glucose Lactic Acid Calcium Phosphorus Total Creatine Kinase C-Reactive Protein 3.50 H Total Protein Albumin Urine WBC (Auto) Urine Creatinine Urine Total Protein Salicylates Acetaminophen 11/08/18 11/08/18 11/08/18 04:27 05:29 12:27 WBC RBC Hgb Hct Plt Count [place] % (Auto) Lymph # Seg Neutrophils % PT INR POC ABG pH POC ABG pCO2 33.4 L POC ABG pO2 78 L Sodium 146 H Potassium Chloride 117.1 H Carbon Dioxide 18 L BUN 19 H Creatinine 1.6 H Glucose 111 H POC Glucose 108 H Lactic Acid Calcium Phosphorus Total Creatine Kinase C-Reactive Protein Total Protein Albumin Urine WBC (Auto) Urine Creatinine Urine Total Protein Salicylates Acetaminophen 11/08/18 11/08/18 11/08/18 12:27 18:11 23:50 WBC RBC Hgb Hct Plt Count [place] % (Auto) Lymph # Seg Neutrophils % PT INR POC ABG pH POC ABG pCO2 POC ABG pO2 Sodium Potassium Chloride Carbon Dioxide BUN Creatinine Glucose POC Glucose 188 H 126 H 149 H Lactic Acid Calcium Phosphorus Total Creatine Kinase C-Reactive Protein Total Protein Albumin Urine WBC (Auto) Urine Creatinine Urine Total Protein Salicylates Acetaminophen 11/09/18 11/09/18 11/09/18 03:32 04:12 04:12 WBC 3.6 L RBC 2.99 L Hgb 8.8 L Hct 26.9 L Plt Count 81 L [place] % (Auto) Lymph # Seg Neutrophils % PT INR POC ABG pH 7.329 L POC ABG pCO2 POC ABG pO2 Sodium Potassium Chloride 114.8 H Carbon Dioxide 20 L BUN 28 H Creatinine 1.9 H Glucose 144 H POC Glucose Lactic Acid Calcium 8.2 L Phosphorus Total Creatine Kinase C-Reactive Protein Total Protein Albumin Urine WBC (Auto) Urine Creatinine Urine Total Protein Salicylates Acetaminophen 11/09/18 11/09/18 11/09/18 05:24 12:59 17:59 WBC RBC Hgb Hct Plt Count [place] % (Auto) Lymph # Seg Neutrophils % PT INR POC ABG pH POC ABG pCO2 POC ABG pO2 Sodium Potassium Chloride Carbon Dioxide BUN Creatinine Glucose POC Glucose 163 H 175 H 116 H Lactic Acid Calcium Phosphorus Total Creatine Kinase C-Reactive Protein Total Protein Albumin Urine WBC (Auto) Urine Creatinine Urine Total Protein Salicylates Acetaminophen 11/10/18 11/10/18 11/10/18 00:45 03:57 06:45 WBC RBC Hgb Hct Plt Count [place] % (Auto) Lymph # Seg Neutrophils % PT INR POC ABG pH 7.332 L POC ABG pCO2 POC ABG pO2 Sodium Potassium Chloride Carbon Dioxide BUN Creatinine Glucose POC Glucose 201 H 148 H Lactic Acid Calcium Phosphorus Total Creatine Kinase C-Reactive Protein Total Protein Albumin Urine WBC (Auto) Urine Creatinine Urine Total Protein Salicylates Acetaminophen 11/10/18 11/10/18 11/10/18 09:52 09:52 12:36 WBC RBC 3.48 L Hgb Hct Plt Count 103 L [place] % (Auto) 14.8 H Lymph # 0.6 L Seg Neutrophils % PT INR POC ABG pH POC ABG pCO2 POC ABG pO2 Sodium Potassium Chloride 109.3 H Carbon Dioxide 21 L BUN 36 H Creatinine 2.1 H Glucose 134 H POC Glucose 142 H Lactic Acid Calcium Phosphorus Total Creatine Kinase C-Reactive Protein Total Protein Albumin Urine WBC (Auto) Urine Creatinine Urine Total Protein Salicylates Acetaminophen 11/10/18 11/10/18 11/11/18 17:31 23:34 05:01 WBC 4.1 L RBC 3.11 L Hgb 9.1 L Hct 27.7 L Plt Count 97 L [place] % (Auto) Lymph # Seg Neutrophils % PT INR POC ABG pH POC ABG pCO2 POC ABG pO2 Sodium Potassium Chloride Carbon Dioxide BUN Creatinine Glucose POC Glucose 152 H 163 H Lactic Acid Calcium Phosphorus Total Creatine Kinase C-Reactive Protein Total Protein Albumin Urine WBC (Auto) Urine Creatinine Urine Total Protein Salicylates Acetaminophen 11/11/18 11/11/18 11/11/18 05:01 05:34 10:03 WBC RBC Hgb Hct Plt Count [place] % (Auto) Lymph # Seg Neutrophils % PT 15.2 H INR 1.23 H POC ABG pH POC ABG pCO2 POC ABG pO2 Sodium Potassium 5.3 H Chloride 108.2 H Carbon Dioxide 21 L BUN 39 H Creatinine 2.2 H Glucose 155 H POC Glucose 159 H Lactic Acid Calcium Phosphorus Total Creatine Kinase C-Reactive Protein Total Protein Albumin Urine WBC (Auto) Urine Creatinine Urine Total Protein Salicylates Acetaminophen 11/11/18 11/11/18 11/11/18 12:36 17:00 17:25 WBC RBC Hgb Hct Plt Count [place] % (Auto) Lymph # Seg Neutrophils % PT INR POC ABG pH POC ABG pCO2 POC ABG pO2 121 H Sodium Potassium Chloride Carbon Dioxide BUN Creatinine Glucose POC Glucose 147 H 116 H Lactic Acid Calcium Phosphorus Total Creatine Kinase C-Reactive Protein Total Protein Albumin Urine WBC (Auto) Urine Creatinine Urine Total Protein Salicylates Acetaminophen 11/11/18 11/11/18 11/12/18 20:33 23:46 04:28 WBC RBC 3.26 L Hgb 9.6 L Hct 29.2 L Plt Count 126 L [place] % (Auto) Lymph # Seg Neutrophils % PT INR POC ABG pH 7.247 L POC ABG pCO2 53.6 H POC ABG pO2 Sodium Potassium Chloride Carbon Dioxide BUN Creatinine Glucose POC Glucose 130 H Lactic Acid Calcium Phosphorus Total Creatine Kinase C-Reactive Protein Total Protein Albumin Urine WBC (Auto) Urine Creatinine Urine Total Protein Salicylates Acetaminophen 11/12/18 11/12/18 11/13/18 04:28 04:44 04:49 WBC RBC 2.89 L Hgb 8.6 L Hct 25.7 L Plt Count 133 L [place] % (Auto) Lymph # Seg Neutrophils % PT INR POC ABG pH POC ABG pCO2 34.0 L POC ABG pO2 138 H Sodium Potassium 5.2 H Chloride 109.9 H Carbon Dioxide 20 L BUN 40 H Creatinine 2.2 H Glucose 112 H POC Glucose Lactic Acid Calcium Phosphorus Total Creatine Kinase C-Reactive Protein Total Protein 5.9 L Albumin 2.5 L Urine WBC (Auto) Urine Creatinine Urine Total Protein Salicylates Acetaminophen 11/13/18 04:49 WBC RBC Hgb Hct Plt Count [place] % (Auto) Lymph # Seg Neutrophils % PT INR POC ABG pH POC ABG pCO2 POC ABG pO2 Sodium Potassium 5.1 H Chloride 113.7 H Carbon Dioxide 21 L BUN 44 H Creatinine 2.3 H Glucose POC Glucose Lactic Acid Calcium Phosphorus Total Creatine Kinase C-Reactive Protein Total Protein Albumin Urine WBC (Auto) Urine Creatinine Urine Total Protein Salicylates Acetaminophen Allied health notes reviewed: nursing
[2018-11-13] MEDS: NEURONTIN PO SCH ×2 (13:51→22:31)
[2018-11-13] MEDS: REQUIP PO SCH ×4 (13:51→21:45)
[2018-11-13] MEDS: COREG PO SCH ×2 (13:51→22:31)
[2018-11-13] MEDS: PEPCID PO SCH (13:51)
[2018-11-13] MEDS: PRAVACHOL PO SCH (13:51)
[2018-11-13] MEDS: SODIUM CHLORIDE FLUSH SYRINGE 10 ML IV SCH ×2 (13:52→22:26)
[2018-11-13 14:27] LABS: Patient Weight,Urine 153.7 lbs
[2018-11-13] MEDS: LATANOPROST 0.005% OU SCH (17:35)
[2018-11-13] MEDS: MAXIPIME/NS 1 GM/100 ML 1 GM/100 ML BAG IV SCH (22:18)
[2018-11-14] MEDS: HumaLOG SUB-Q SCH ×2 (03:11→06:03)
[2018-11-14] MEDS: ATIVAN IV PRN (03:12)
[2018-11-14] MEDS: APRESOLINE IV PRN (03:34)
[2018-11-14] MEDS ORDERED: MORPHINE IV ONE (04:08)
[2018-11-14 04:54] LABS: Hematocrit 29.8 % (30.3-42.9); Hemoglobin 9.7 gm/dl (10.1-14.3); Mean Corpuscular HGB Conc 33 % (30-34); Mean Corpuscular Volume 90 fl (79-97); Platelet Count 172 K/mm3 (140-440); Red Blood Count 3.32 M/mm3 (3.65-5.03); Red Cell Distribution Width 14.5 % (13.2-15.2)
[2018-11-14 05:07] LABS: Calcium 10.1 mg/dL (8.4-10.2)
[2018-11-14] MEDS: NACL 0.9% 1000 ML 1,000 ML IV SCH (06:03)
--- NOTE | 2018-11-14 07:20 | Progress Note ---
Assessment and Plan Assessment and plan: Patient is a 82 yo woman (No prior admission for review, first visit in our EMR. Also, her is in Hospice for metastatic cancer per son Lauro) with a history of hypertension, dyslipidemia, OA s/p bilateral TKR and possible CHF who presented to [facility] ED with AMS. Apparently, patient was found unresponsive in the bed and seizing. On EMS arrival patient was noted to have a GCS of 3 and was placed on oxygen mask and intubated in the ED on arrival. Initial Temp was noted as 102.2. In the ED patient was intubated due to AMS and Acute Hypoxemic Respiratory Failure, and is unable to protect her airway, Teleneurology consulted in ED. Pt deemed not a candidate for TPA. Initially pCXR on 11/05/18 showed ETT in good position, no other significant findings, CT abd/pelvis without contrast showed mild bibasilar lung atelectasis as well as mildly distended gallbladder with minimal cholelithiasis. 11/10/18 pCXR showed developing Atelectasis and bilateral pleural effusion. Then pCXR on 11/11/18 showed increasing pleural parenchymal opacity LLL. Patient was eventually extubated on 11/11/18 and placed on bipap 50%. Then on 11/13/18 bipap removed in AM and patient transferred out of the ICU to [facility]. * Renal us: Small left renal cyst, negative for obstruction or mass * MRI Head: negative for acute pathology * Culture: Staph homis in blood * MSSA trach culture * CT chest wo contrast 11/11/18 IMPRESSION: Small pleural effusions, left greater than right. Basilar consolidation is probably secondary to atelectasis and less likely pneumonia. The remainder of the lungs appear clear. * 11/07/18 2D ECHO Conclusions: Mild to moderate concentric LVH, est EF 40-45%, left ventricular diastolic filling pattern is c/w pseudonormalization, RVSF mildly reduced, mild TR, small pericardial effusion, circumferential, no evidence of tamponade Acute hypoxic respiratory failure, poa: currently extubated on Sunday11/11/18, off Bipap, on high flow Pulm is following MSSA Sepsis Left Lobar Pneumonia: Continue Abx, ID following. Staph Hominis Bacteremia: Repeat blood cultures, ID following Hyperkalemia: treated with kayexalate and monitor bmp closely, Nephrology is following Acute cystitis: treat with Abx, monitor bmp closely Hypertensive Urgency: Resume Coreg, Hydrazine Status Epilepticus, poa: Neurology is following, treat with prn IV ativan Lactic Acidosis, treat with renal failure Hypernatermia resolved: monitor bmp closely Acute Metabolic Encephalopathy Thrombocytopenia; improving, monitor CBC closely ARF due to suspect ATN, poa: Nephrology following. Dysphagia, failed swallow evaluation: dobhuff and speech therapy ICU deconditioning: order pt/ot Bolton removed after 24hr urine collection with a Purex in right EJ removed, midline placed Left arm swollen: venous doppler ordered CCT 32 minutes History Interval history: Patient was seen and examined. Follow-up on current diagnosis of AMS and respiratory failure. No overnight events reported to me. Imaging, nursing note, chart, labs and old chart reviewed. Moved to [facility] on 11/13/18 from ICU Hospitalist Physical - Physical exam Narrative exam: Gen: ill appearing, mild increase in accessory muscles, off bipap on high flow O2, lethargic HEENT: NCAT, EOMI, PERRL, OP Clear Neck: supple, no adenopathy, no thyromegaly, no JVD CVS/Heart: Regular tachycardia normal S1S2, pulses present bilaterally Chest/Lungs: tachypneic, diminished bs bilatearal, Symmetrical chest expansion, good air entry bilaterally GI/Abdomen: soft, NTND, good bowel sounds, no guarding or rebound /Bladder: no suprapubic tenderness, no CVA or paraspinal tenderness Extermity/Skin: dependent edema, pale skin MSK: doesn't follow commands Neuro: CN 2-12 grossly intact, not following commands Psych: calm - Constitutional Vitals: Temp Pulse Resp BP Pulse Ox 98.9 F 85 19 95/53 98 11/14/18 04:00 11/14/18 06:00 11/14/18 06:00 11/14/18 06:00 11/14/18 06:00 General appearance: Absent: severe distress Results - Labs CBC & Chem 7: 11/14/18 04:19 11/14/18 04:19 Labs: Laboratory Last Values WBC 6.3 K/mm3 (4.5-11.0) 11/14/18 04:19 RBC 3.32 M/mm3 (3.65-5.03) L 11/14/18 04:19 Hgb 9.7 gm/dl (10.1-14.3) L 11/14/18 04:19 Hct 29.8 % (30.3-42.9) L 11/14/18 04:19 MCV 90 fl (79-97) 11/14/18 04:19 MCH 29 pg (28-32) 11/14/18 04:19 MCHC 33 % (30-34) 11/14/18 04:19 RDW 14.5 % (13.2-15.2) 11/14/18 04:19 Plt Count 172 K/mm3 (140-440) 11/14/18 04:19 Lymph % (Auto) 13.4 % (13.4-35.0) 11/10/18 09:52 Bond % (Auto) 14.8 % (0.0-7.3) H 11/10/18 09:52 Eos % (Auto) 1.6 % (0.0-4.3) 11/10/18 09:52 Baso % (Auto) 0.3 % (0.0-1.8) 11/10/18 09:52 Lymph # 0.6 K/mm3 (1.2-5.4) L 11/10/18 09:52 Bond # 0.7 K/mm3 (0.0-0.8) 11/10/18 09:52 Eos # 0.1 K/mm3 (0.0-0.4) 11/10/18 09:52 Baso # 0.0 K/mm3 (0.0-0.1) 11/10/18 09:52 Seg Neutrophils % 69.9 % (40.0-70.0) 11/10/18 09:52 Seg Neutrophils # 3.2 K/mm3 (1.8-7.7) 11/10/18 09:52 PT 15.2 Sec. (12.2-14.9) H 11/11/18 10:03 INR 1.23 (0.87-1.13) H 11/11/18 10:03 APTT 31.8 Sec. (24.2-36.6) 11/11/18 10:03 Heparin Anti-Xa, Unfract Negative (Negative) 11/08/18 13:49 POC ABG pH 7.415 (7.35-7.45) 11/12/18 04:44 POC ABG pCO2 34.0 (35-45) L 11/12/18 04:44 POC ABG pO2 138 (80-105) H 11/12/18 04:44 POC ABG HCO3 21.8 (22-26 mml/L) 11/12/18 04:44 POC ABG Total CO2 23 (23-27mmol/L) 11/12/18 04:44 POC ABG O2 Sat 99 11/12/18 04:44 POC ABG Base Excess -3 ((-2) - (+3)mmol/L) 11/12/18 04:44 30 % 11/12/18 04:44 Sodium 147 mmol/L (137-145) H 11/14/18 04:19 Potassium 4.7 mmol/L (3.6-5.0) 11/14/18 04:19 Chloride 114.8 mmol/L (98-107) H 11/14/18 04:19 Carbon Dioxide 18 mmol/L (22-30) L 11/14/18 04:19 19 mmol/L 11/14/18 04:19 BUN 44 mg/dL (7-17) H 11/14/18 04:19 2.2 mg/dL (0.7-1.2) H 11/14/18 04:19 Estimated GFR 21 ml/min 11/14/18 04:19 20 % 11/14/18 04:19 Glucose 75 mg/dL (65-100) 11/14/18 04:19 POC Glucose 71 (70-105) 11/14/18 05:24 Lactic Acid 0.70 mmol/L (0.7-2.0) 11/09/18 04:12 Calcium 10.1 mg/dL (8.4-10.2) 11/14/18 04:19 Phosphorus 3.00 mg/dL (2.5-4.5) D 11/08/18 04:27 Magnesium 2.20 mg/dL (1.7-2.3) 11/05/18 16:31 0.40 mg/dL (0.1-1.2) 11/12/18 04:28 AST 27 units/L (5-40) 11/12/18 04:28 ALT 24 units/L (7-56) 11/12/18 04:28 66 units/L (35-129) 11/12/18 04:28 44.0 umol/L (25-60) 11/05/18 17:28 < 7 units/L (30-135) L 11/05/18 16:31 0.019 ng/mL (0.00-0.029) 11/05/18 16:31 3.50 mg/dL (0.00-1.30) H 11/07/18 15:48 5.9 g/dL (6.3-8.2) L 11/12/18 04:28 2.5 g/dL (3.9-5) L 11/12/18 04:28 0.7 % 11/12/18 04:28 TSH 0.972 mlU/mL (0.270-4.200) 11/05/18 16:31 Yellow (Yellow) 11/05/18 20:47 Slightly-cloudy (Clear) 11/05/18 20:47 5.0 (5.0-7.0) 11/05/18 20:47 Ur Specific [place] 1.016 (1.003-1.030) 11/05/18 20:47 100 mg/dl mg/dL (Negative) 11/05/18 20:47 50 mg/dL (Negative) 11/05/18 20:47 Neg mg/dL (Negative) 11/05/18 20:47 Sm (Negative) 11/05/18 20:47 Pos (Negative) 11/05/18 20:47 Neg (Negative) 11/05/18 20:47 < 2.0 mg/dL (<2.0) 11/05/18 20:47 Ur Leukocyte Esterase Tr (Negative) 11/05/18 20:47 19.0 /HPF (0.0-6.0) H 11/05/18 20:47 4.0 /HPF (0.0-6.0) 11/05/18 20:47 U Epithel Cells (Auto) 1.0 /HPF (0-13.0) 11/05/18 20:47 Few /HPF 11/05/18 20:47 None seen (None Seen) 11/06/18 14:48 2800 ml 11/13/18 11:27 45.0 mg/dL (0.1-20.0) H 11/13/18 11:27 Height (in) 65.0 inches 11/13/18 11:27 Weight (lb) 153.7 lbs 11/13/18 11:27 37 11/13/18 11:27 40 mmol/L 11/06/18 Unknown 68 mg/dL (5-11.8) H 11/06/18 Unknown Clear 11/11/18 Unknown Colorless 11/11/18 Unknown 10 /mm3 (1-10) 11/11/18 Unknown 22 /mm3 (0-0) 11/11/18 Unknown CSF Seg Neutrophils 0 % (0-6) 11/11/18 Unknown 37.8 % (40-80) 11/11/18 Unknown CSF Reactive Lymphs 0 % 11/11/18 Unknown 62.2 % (15-45) 11/11/18 Unknown 0 % 11/11/18 Unknown 0 % 11/11/18 Unknown C 11/11/18 Unknown 77 mg/dL 11/11/18 Unknown 57 mg/dL 11/11/18 Unknown Vancomycin Trough 17.5 ug/mL (5.0-20.0) 11/08/18 21:16 Random Vancomycin 22.4 ug/mL (0-40.0) 11/11/18 05:01 Salicylates < 0.3 mg/dL (2.8-20.0) L 11/05/18 16:31 Acetaminophen < 5.0 ug/mL (10.0-30.0) L 11/05/18 16:31 Plasma/Serum Alcohol < 0.01 % (0-0.07) 11/05/18 16:31 Heparin-induced Plt Ab Negative (Negative) 11/08/18 13:49 UF Heparin High Dose 0 % Release 11/08/18 13:49 KIANNA UFH Low Dose 0.1 0 % Release 11/08/18 13:49 KIANNA UFH Low Dose 0.5 0 % Release 11/08/18 13:49 Active Medications - Current Medications Current Medications: Generic Name Dose Route Start Last Admin Trade Name Freq PRN Reason Stop Dose Admin Albuterol 2.5 mg 11/05/18 17:52 11/12/18 20:15 Proventil IH 2.5 mg Q3HRT PRN Administration Shortness Of Breath Lipase/Protease/Amylase 1 each 11/07/18 11:07 Pancredoris Cruz 10,500 Unit FEEDTUBE PRN PRN For Clogged Feeding Tube Carvedilol 6.25 mg 11/09/18 11:00 11/13/18 22:31 Coreg PO Not Given BID COUNTS INCLUDE 234 BEDS AT THE [facility] Dextrose 50 ml 11/05/18 17:59 D50w (25gm) Syringe IV PRN PRN Hypoglycemia Famotidine 20 mg 11/11/18 10:00 11/13/18 13:51 Pepcid PO Not Given DAILY COUNTS INCLUDE 234 BEDS AT THE [facility] Gabapentin 800 mg 11/08/18 10:00 11/13/18 22:31 Neurontin PO Not Given BID COUNTS INCLUDE 234 BEDS AT THE [facility] Hydralazine HCl 10 mg 11/05/18 21:30 11/14/18 03:34 Apresoline IV 10 mg Q6HR PRN Administration Hypertension Hydrophilic Ointment 1 applic 11/05/18 16:21 Vaseline Lip Therapy TP Q2HR PRN Dry Lips Cefepime HCl 1 gm in 100 mls @ 200 mls/hr 11/11/18 22:00 11/13/18 22:18 Maxipime/Ns 1 Gm/100 Ml IV 200 mls/hr Q24H NIKKO Administration Protocol Sodium Chloride 1,000 mls @ 75 mls/hr 11/11/18 12:00 11/14/18 06:03 Nacl 0.9% 1000 Ml IV 75 mls/hr DIRECT NIKKO Administration Insulin Human Lispro 0 unit 11/06/18 12:00 11/14/18 06:03 Humalog SUB-Q Not Given Q6HR COUNTS INCLUDE 234 BEDS AT THE [facility] Protocol Latanoprost 1 drops 11/08/18 18:00 11/13/18 17:35 Latanoprost 0.005% OU 1 drops QPM NIKKO Administration Lorazepam 1 mg 11/12/18 20:33 11/14/18 03:12 Ativan IV 1 mg Q4H PRN Administration Agitation; anxiety Miscellaneous Medication 1 drop 11/08/18 22:00 11/13/18 22:30 Brimonidine Tartate OP 1 drop BID NIKKO Administration Multi-Ingred Cream/Lotion/Oil/Oint 1 applic 11/05/18 16:21 Artificial Tears Ophth Oint OU Q4HR PRN Dry Eye(s) Pravastatin Sodium 20 mg 11/08/18 10:00 11/13/18 13:51 Pravachol PO Not Given DAILY NIKKO Ropinirole HCl 1 mg 11/08/18 09:00 11/13/18 21:45 Requip PO Not Given TID NIKKO Simple Syrup 15 ml 11/07/18 11:07 Simple Syrup FEEDTUBE PRN PRN Hypoglycemia Simple Syrup 30 ml 11/07/18 11:07 Simple Syrup FEEDTUBE PRN PRN Hypoglycemia Sodium Bicarbonate 325 mg 11/07/18 11:07 Sodium Bicarbonate FEEDTUBE PRN PRN For Clogged Feeding Tube Sodium Chloride 10 ml 11/05/18 22:00 11/13/18 22:26 Sodium Chloride Flush Syringe 10 Ml IV 10 ml BID NIKKO Administration Sodium Chloride 10 ml 11/05/18 17:52 Sodium Chloride Flush Syringe 10 Ml IV PRN PRN LINE FLUSH Nutrition/Malnutrition Assess - Dietary Evaluation Nutrition/Malnutrition Findings: Nutrition Notes Start: 11/06/18 16:18 Freq: Status: Active Protocol: Document 11/13/18 15:12 RM (Rec: 11/13/18 15:13 RM [id number]) Nutrition Notes Initial or Follow up Reassessment Current Diagnosis Acute Kidney Injury, Respiratory Failure Other Pertinent Diagnosis Encephalopathy Current Diet Nepro at 30 ml/hr Labs/Tests K 5.1 Pertinent Medications Reviewed Height 5 ft 5 in Weight 69.7 kg Rolfe Body Weight (kg) 56.81 BMI 25.5 Subjective/Other Information Procedure being done at time of visit. Per nurse pt is being extubated and is planned for swallow evaluation tomorrow. Pt is NPO for now. Burn Absent Trauma Absent #1 Nutrition Diagnosis Inadequate oral intake Diagnosis Progress(for reassessment Continues documentation) Is patient on ventilator? No Is Patient Ambulatory and/or Out of Bed No REE-(Benton-St. Jeor-confined to bed) 1390.584 Calculation Used for Recommendations Benton-St Jeor Additional Notes Protein Needs: 84-139g (1.2-2g /kg) Fluid Needs: 1 ml/kcal Nutrition Intervention Change Diet Order: Per ST Nutrition Support: Resume Nepro at 30ml/hr Flush with 130ml q4h if swallow eval failed Kcal 1,296 Protein (gm) 58 Fluid (mL) 539 Goal #1 Diet advancement Anticipated Discharge Needs: Unable to determine at this time Follow-Up By: 11/15/18 Additional Comments Follow for diet advancement
--- NOTE | 2018-11-14 08:34 | Progress Note ---
Assessment and Plan Acute Respiratory Failure with Hypoxia Gram positive bacteremia (in clusters) Possible Seizure Lactic Acidosis Hypernatermia Acute Metabolic Encephalopathy BRAD possible secondary to Ischemic ATN Thrombocytopenia Hypernatremia - continue supplemental oxygen wean flow rate and FIO2 for O2 sats>90% -Nocturnal NIPPV as tolerated - continue bronchodilators with pulmonary hygiene per RT - continue antibiotics per ID rec's - place small bowel feeding tube and initiate enteric feeding once placement is confirmed. -Free water flushes and hypotonic solutions for hypernatremia - prn CXR and ABG - VAP bundle addressed - continue accuchecks with glycemic control per SSI for target blood glucose <180mg/dL - Prevention of delirium, maintenance of sleep-wake cycle - Azotemia per nephrology; continue gentle hydration - Avoid nephrotoxic agents, adjust all antibiotics and medications for CrCL and GFR - VTE and Stress ulcer prophylaxis -PT/OT, mobility program -Cardioprotective measures -Aspiration precautions -Start discharge planning .... care plan discussed at son at the bedside. Discussed care plan with RT/RN at the bedside CONDITION: FAIR PROGNOSIS: GUARDED CODE STATUS: FULL CODE Subjective Date of service: 11/14/18 Principal diagnosis: Ac hypoxemic Resp Failure ; Possible Seizure; Ac. Met Encephalopathy; BRAD Interval history: Patient is seen today for: Acute Respiratory Failure with Hypoxemia; Gram pos itive bacteremia (in clusters); Possible Seizure; Lactic Acidosis; Hypernatermia; Acute Metabolic Encephalopathy; BRAD possible secondary to Ischemic ATN Seen and examined at bedside; 24hour events reviewed; nursing and respiratory care staff consulted; no adverse overnight events reported to me; resting peacefully in bed; AMS is persistent, but opens eyes ; son visiting; No emesis or overt aspiration; no reported seizures; remains on high flow oxygen therapy Vitals, labs, medications, chart reviewed. Discussed with RN and RT. Failed swallow evaluation, discussed with LAB TECHNOLOGIST Objective Vital Signs - 12hr 11/13/18 11/13/18 11/13/18 21:36 21:44 22:01 Temperature Pulse Rate 100 H 91 H 99 H Pulse Rate [ From Monitor] Respiratory 11 L 22 19 Rate Blood Pressure 137/55 O2 Sat by Pulse 99 100 98 Oximetry 11/13/18 11/13/18 11/13/18 22:31 23:01 23:59 Temperature 99.5 F Pulse Rate 108 H 101 H Pulse Rate [ From Monitor] Respiratory 21 Rate Blood Pressure 99/61 107/59 O2 Sat by Pulse 95 Oximetry 11/14/18 11/14/18 11/14/18 00:00 00:01 00:31 Temperature Pulse Rate 95 H 98 H 92 H Pulse Rate [ 95 H From Monitor] Respiratory 24 18 18 Rate Blood Pressure 103/78 103/78 O2 Sat by Pulse 98 95 100 Oximetry 11/14/18 11/14/18 11/14/18 01:01 02:00 03:01 Temperature Pulse Rate 121 H 87 134 H Pulse Rate [ From Monitor] Respiratory 17 20 21 Rate Blood Pressure 103/78 129/60 129/60 O2 Sat by Pulse 92 98 95 Oximetry 11/14/18 11/14/18 11/14/18 03:34 04:00 04:26 Temperature 98.9 F Pulse Rate 135 H 137 H Pulse Rate [ 138 H From Monitor] Respiratory 27 H 26 H Rate Blood Pressure 155/78 167/143 O2 Sat by Pulse 93 Oximetry 11/14/18 11/14/18 11/14/18 04:51 05:00 06:00 Temperature Pulse Rate 104 H 97 H 85 Pulse Rate [ From Monitor] Respiratory 23 19 19 Rate Blood Pressure 128/52 110/43 95/53 O2 Sat by Pulse 98 96 98 Oximetry 11/14/18 11/14/18 07:00 07:50 Temperature 98.1 F Pulse Rate Pulse Rate [ From Monitor] Respiratory Rate Blood Pressure O2 Sat by Pulse 98 Oximetry Constitutional: appears uncomfortable, other (elderly looking CF, normocephalic and atraumatic on High flow oxygen therapy) Eyes: non-icteric ENT: oropharynx dry Neck: supple, no lymphadenopathy, no JVD, other (no thyromegaly) Effort: mildly labored Ascultation: Bilateral: diminished breath sounds, rhonchi (bases) Percussion: Bilateral: not dull Cardiovascular: regular rate and rhythm, murmur noted (systolic), other (S1,S2) Gastrointestinal: normoactive bowel sounds, soft, non-tender, non-distended Integumentary: normal Extremities: no cyanosis, no edema, pink and warm, pulses normal, no ischemia or petechiae Neurologic: non-focal exam (grossly), pupils equal and round, other (some intermittent confusion, but answers questions) Psychiatric: mood appropriate, affect normal CBC and BMP: 11/15/18 05:30 11/17/18 12:22 ABG, PT/INR, D-dimer: ABG POC ABG pH 7.415 (7.35-7.45) 11/12/18 04:44 POC ABG pCO2 34.0 (35-45) L 11/12/18 04:44 POC ABG pO2 138 (80-105) H 11/12/18 04:44 POC ABG HCO3 21.8 (22-26 mml/L) 11/12/18 04:44 POC ABG Total CO2 23 (23-27mmol/L) 11/12/18 04:44 POC ABG O2 Sat 99 11/12/18 04:44 PT/INR, D-dimer PT 15.2 Sec. (12.2-14.9) H 11/11/18 10:03 INR 1.23 (0.87-1.13) H 11/11/18 10:03 Abnormal lab findings: Abnormal Labs 11/05/18 11/05/18 11/05/18 16:31 16:31 16:31 WBC RBC Hgb Hct Plt Count 139 L [place] % (Auto) Lymph # 0.7 L Seg Neutrophils % 78.8 H PT INR POC ABG pH POC ABG pCO2 POC ABG pO2 Sodium 148 H Potassium 3.2 L Chloride 110.6 H Carbon Dioxide 17 L BUN 18 H Creatinine 1.9 H Glucose 205 H POC Glucose Lactic Acid 8.20 H* Calcium 10.9 H Phosphorus Total Creatine Kinase C-Reactive Protein Total Protein Albumin 3.6 L Urine WBC (Auto) Urine Creatinine Urine Total Protein Salicylates Acetaminophen 11/05/18 11/05/18 11/05/18 16:31 16:31 16:31 WBC RBC Hgb Hct Plt Count [place] % (Auto) Lymph # Seg Neutrophils % PT INR POC ABG pH POC ABG pCO2 POC ABG pO2 Sodium Potassium Chloride Carbon Dioxide BUN Creatinine Glucose POC Glucose Lactic Acid Calcium Phosphorus Total Creatine Kinase < 7 L C-Reactive Protein Total Protein Albumin Urine WBC (Auto) Urine Creatinine Urine Total Protein Salicylates < 0.3 L Acetaminophen < 5.0 L 11/05/18 11/05/18 11/05/18 17:29 17:42 20:47 WBC RBC Hgb Hct Plt Count [place] % (Auto) Lymph # Seg Neutrophils % PT INR POC ABG pH POC ABG pCO2 33.4 L POC ABG pO2 136 H Sodium Potassium Chloride Carbon Dioxide BUN Creatinine Glucose POC Glucose Lactic Acid 3.30 H* Calcium Phosphorus Total Creatine Kinase C-Reactive Protein Total Protein Albumin Urine WBC (Auto) 19.0 H Urine Creatinine Urine Total Protein Salicylates Acetaminophen 11/05/18 11/05/18 11/06/18 20:47 22:42 04:09 WBC 4.4 L RBC Hgb Hct Plt Count 102 L [place] % (Auto) 13.2 H Lymph # 1.0 L Seg Neutrophils % PT INR POC ABG pH POC ABG pCO2 POC ABG pO2 Sodium Potassium Chloride Carbon Dioxide BUN Creatinine Glucose POC Glucose 121 H Lactic Acid Calcium Phosphorus Total Creatine Kinase C-Reactive Protein Total Protein Albumin Urine WBC (Auto) Urine Creatinine 166.9 H Urine Total Protein Salicylates Acetaminophen 11/06/18 11/06/18 11/06/18 04:09 05:05 07:31 WBC RBC Hgb Hct Plt Count [place] % (Auto) Lymph # Seg Neutrophils % PT INR POC ABG pH 7.509 H POC ABG pCO2 < 30 L POC ABG pO2 115 H Sodium 150 H Potassium 2.7 L* Chloride 118.2 H Carbon Dioxide 21 L BUN 21 H Creatinine 1.6 H Glucose 125 H POC Glucose Lactic Acid 2.50 H* Calcium Phosphorus Total Creatine Kinase C-Reactive Protein Total Protein 5.7 L Albumin 3.1 L Urine WBC (Auto) Urine Creatinine Urine Total Protein Salicylates Acetaminophen 11/06/18 11/06/18 11/06/18 12:04 16:21 18:04 WBC RBC Hgb Hct Plt Count [place] % (Auto) Lymph # Seg Neutrophils % PT INR POC ABG pH POC ABG pCO2 POC ABG pO2 Sodium Potassium 5.4 H D Chloride Carbon Dioxide BUN Creatinine Glucose POC Glucose 122 H 110 H Lactic Acid Calcium Phosphorus Total Creatine Kinase C-Reactive Protein Total Protein Albumin Urine WBC (Auto) Urine Creatinine Urine Total Protein Salicylates Acetaminophen 11/06/18 11/06/18 11/07/18 21:28 Unknown 04:02 WBC RBC Hgb Hct Plt Count [place] % (Auto) Lymph # Seg Neutrophils % PT INR POC ABG pH POC ABG pCO2 POC ABG pO2 Sodium 152 H Potassium Chloride 123.4 H Carbon Dioxide 20 L BUN 23 H Creatinine 1.5 H Glucose 111 H POC Glucose 125 H Lactic Acid Calcium Phosphorus 1.00 L Total Creatine Kinase C-Reactive Protein Total Protein Albumin Urine WBC (Auto) Urine Creatinine 155.8 H Urine Total Protein 68 H Salicylates Acetaminophen 11/07/18 11/07/18 11/07/18 09:07 11:05 15:48 WBC 4.1 L RBC 3.62 L Hgb Hct Plt Count 77 L [place] % (Auto) Lymph # Seg Neutrophils % PT INR POC ABG pH 7.314 L POC ABG pCO2 POC ABG pO2 Sodium Potassium Chloride Carbon Dioxide BUN Creatinine Glucose POC Glucose Lactic Acid Calcium Phosphorus Total Creatine Kinase C-Reactive Protein 3.50 H Total Protein Albumin Urine WBC (Auto) Urine Creatinine Urine Total Protein Salicylates Acetaminophen 11/08/18 11/08/18 11/08/18 04:27 05:29 12:27 WBC RBC Hgb Hct Plt Count [place] % (Auto) Lymph # Seg Neutrophils % PT INR POC ABG pH POC ABG pCO2 33.4 L POC ABG pO2 78 L Sodium 146 H Potassium Chloride 117.1 H Carbon Dioxide 18 L BUN 19 H Creatinine 1.6 H Glucose 111 H POC Glucose 108 H Lactic Acid Calcium Phosphorus Total Creatine Kinase C-Reactive Protein Total Protein Albumin Urine WBC (Auto) Urine Creatinine Urine Total Protein Salicylates Acetaminophen 11/08/18 11/08/18 11/08/18 12:27 18:11 23:50 WBC RBC Hgb Hct Plt Count [place] % (Auto) Lymph # Seg Neutrophils % PT INR POC ABG pH POC ABG pCO2 POC ABG pO2 Sodium Potassium Chloride Carbon Dioxide BUN Creatinine Glucose POC Glucose 188 H 126 H 149 H Lactic Acid Calcium Phosphorus Total Creatine Kinase C-Reactive Protein Total Protein Albumin Urine WBC (Auto) Urine Creatinine Urine Total Protein Salicylates Acetaminophen 11/09/18 11/09/18 11/09/18 03:32 04:12 04:12 WBC 3.6 L RBC 2.99 L Hgb 8.8 L Hct 26.9 L Plt Count 81 L [place] % (Auto) Lymph # Seg Neutrophils % PT INR POC ABG pH 7.329 L POC ABG pCO2 POC ABG pO2 Sodium Potassium Chloride 114.8 H Carbon Dioxide 20 L BUN 28 H Creatinine 1.9 H Glucose 144 H POC Glucose Lactic Acid Calcium 8.2 L Phosphorus Total Creatine Kinase C-Reactive Protein Total Protein Albumin Urine WBC (Auto) Urine Creatinine Urine Total Protein Salicylates Acetaminophen 11/09/18 11/09/18 11/09/18 05:24 12:59 17:59 WBC RBC Hgb Hct Plt Count [place] % (Auto) Lymph # Seg Neutrophils % PT INR POC ABG pH POC ABG pCO2 POC ABG pO2 Sodium Potassium Chloride Carbon Dioxide BUN Creatinine Glucose POC Glucose 163 H 175 H 116 H Lactic Acid Calcium Phosphorus Total Creatine Kinase C-Reactive Protein Total Protein Albumin Urine WBC (Auto) Urine Creatinine Urine Total Protein Salicylates Acetaminophen 11/10/18 11/10/18 11/10/18 00:45 03:57 06:45 WBC RBC Hgb Hct Plt Count [place] % (Auto) Lymph # Seg Neutrophils % PT INR POC ABG pH 7.332 L POC ABG pCO2 POC ABG pO2 Sodium Potassium Chloride Carbon Dioxide BUN Creatinine Glucose POC Glucose 201 H 148 H Lactic Acid Calcium Phosphorus Total Creatine Kinase C-Reactive Protein Total Protein Albumin Urine WBC (Auto) Urine Creatinine Urine Total Protein Salicylates Acetaminophen 11/10/18 11/10/18 11/10/18 09:52 09:52 12:36 WBC RBC 3.48 L Hgb Hct Plt Count 103 L [place] % (Auto) 14.8 H Lymph # 0.6 L Seg Neutrophils % PT INR POC ABG pH POC ABG pCO2 POC ABG pO2 Sodium Potassium Chloride 109.3 H Carbon Dioxide 21 L BUN 36 H Creatinine 2.1 H Glucose 134 H POC Glucose 142 H Lactic Acid Calcium Phosphorus Total Creatine Kinase C-Reactive Protein Total Protein Albumin Urine WBC (Auto) Urine Creatinine Urine Total Protein Salicylates Acetaminophen 11/10/18 11/10/18 11/11/18 17:31 23:34 05:01 WBC 4.1 L RBC 3.11 L Hgb 9.1 L Hct 27.7 L Plt Count 97 L [place] % (Auto) Lymph # Seg Neutrophils % PT INR POC ABG pH POC ABG pCO2 POC ABG pO2 Sodium Potassium Chloride Carbon Dioxide BUN Creatinine Glucose POC Glucose 152 H 163 H Lactic Acid Calcium Phosphorus Total Creatine Kinase C-Reactive Protein Total Protein Albumin Urine WBC (Auto) Urine Creatinine Urine Total Protein Salicylates Acetaminophen 11/11/18 11/11/18 11/11/18 05:01 05:34 10:03 WBC RBC Hgb Hct Plt Count [place] % (Auto) Lymph # Seg Neutrophils % PT 15.2 H INR 1.23 H POC ABG pH POC ABG pCO2 POC ABG pO2 Sodium Potassium 5.3 H Chloride 108.2 H Carbon Dioxide 21 L BUN 39 H Creatinine 2.2 H Glucose 155 H POC Glucose 159 H Lactic Acid Calcium Phosphorus Total Creatine Kinase C-Reactive Protein Total Protein Albumin Urine WBC (Auto) Urine Creatinine Urine Total Protein Salicylates Acetaminophen 11/11/18 11/11/18 11/11/18 12:36 17:00 17:25 WBC RBC Hgb Hct Plt Count [place] % (Auto) Lymph # Seg Neutrophils % PT INR POC ABG pH POC ABG pCO2 POC ABG pO2 121 H Sodium Potassium Chloride Carbon Dioxide BUN Creatinine Glucose POC Glucose 147 H 116 H Lactic Acid Calcium Phosphorus Total Creatine Kinase C-Reactive Protein Total Protein Albumin Urine WBC (Auto) Urine Creatinine Urine Total Protein Salicylates Acetaminophen 11/11/18 11/11/18 11/12/18 20:33 23:46 04:28 WBC RBC 3.26 L Hgb 9.6 L Hct 29.2 L Plt Count 126 L [place] % (Auto) Lymph # Seg Neutrophils % PT INR POC ABG pH 7.247 L POC ABG pCO2 53.6 H POC ABG pO2 Sodium Potassium Chloride Carbon Dioxide BUN Creatinine Glucose POC Glucose 130 H Lactic Acid Calcium Phosphorus Total Creatine Kinase C-Reactive Protein Total Protein Albumin Urine WBC (Auto) Urine Creatinine Urine Total Protein Salicylates Acetaminophen 11/12/18 11/12/18 11/13/18 04:28 04:44 04:49 WBC RBC 2.89 L Hgb 8.6 L Hct 25.7 L Plt Count 133 L [place] % (Auto) Lymph # Seg Neutrophils % PT INR POC ABG pH POC ABG pCO2 34.0 L POC ABG pO2 138 H Sodium Potassium 5.2 H Chloride 109.9 H Carbon Dioxide 20 L BUN 40 H Creatinine 2.2 H Glucose 112 H POC Glucose Lactic Acid Calcium Phosphorus Total Creatine Kinase C-Reactive Protein Total Protein 5.9 L Albumin 2.5 L Urine WBC (Auto) Urine Creatinine Urine Total Protein Salicylates Acetaminophen 11/13/18 11/13/18 11/14/18 04:49 11:27 04:19 WBC RBC 3.32 L Hgb 9.7 L Hct 29.8 L Plt Count [place] % (Auto) Lymph # Seg Neutrophils % PT INR POC ABG pH POC ABG pCO2 POC ABG pO2 Sodium Potassium 5.1 H Chloride 113.7 H Carbon Dioxide 21 L BUN 44 H Creatinine 2.3 H Glucose POC Glucose Lactic Acid Calcium Phosphorus Total Creatine Kinase C-Reactive Protein Total Protein Albumin Urine WBC (Auto) Urine Creatinine 45.0 H Urine Total Protein Salicylates Acetaminophen 11/14/18 04:19 WBC RBC Hgb Hct Plt Count [place] % (Auto) Lymph # Seg Neutrophils % PT INR POC ABG pH POC ABG pCO2 POC ABG pO2 Sodium 147 H Potassium Chloride 114.8 H Carbon Dioxide 18 L BUN 44 H Creatinine 2.2 H Glucose POC Glucose Lactic Acid Calcium Phosphorus Total Creatine Kinase C-Reactive Protein Total Protein Albumin Urine WBC (Auto) Urine Creatinine Urine Total Protein Salicylates Acetaminophen Chest x-ray: image reviewed Additional Studies: MRI- no acute pathology 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
[2018-11-14] MEDS ORDERED: TYLENOL PO PRN (10:52)
[2018-11-14] MEDS ORDERED: D5NS 0.2% 1,000 ML IV SCH (11:00)
--- NOTE | 2018-11-14 11:01 | Progress Note ---
Assessment and Plan Cultures: 11/05/2018 blood culture: 2/4 bottles (both sets) with Staph hominis 11/05/2018 urine culture: skin jama 11/05/2018 resp culture: oropharyngeal contamination. 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 Resolved. Chest x-ray without evidence of pneumonia. UA with minimal pyuria, doubt UTI. Also with Staph hominis bacteremia. 2) Lactic acidosis: Lactate improved. CT abdomen and pelvis without contrast showed no acute endings. 3) Acute encephalopathy: Neurology following. ?related to seizures. MRI negative for acute process. CSF no evidence of meningitis. 4) BRAD v/s CKD: Renally dose antibiotics, worsening. 5) Staph hominis bacteremia: 2/4 bottles (both sets) with GPC in clusters. TTE unremarkable for valvular vegetations. Continue Vancomycin for 7 days. Repeat blood cultures negative. 6) MSSA in resp cultures: CXR without pneumonia. Recent CXRs more suggestive of atelectasis and possible b/l effusions. Most recent CXR shows increased pleuro- parenchyma density in the LLL. CT chest no pneumonia or effusion +atelectasis. 7) Acute respiratory failure: on BIPAP 8) Pancytopenia: better Recs: stop IV vancomycin, renally adjusted x 7 days from bacteremia clearance (ending 11/14/2018) stop cefepime renally adjusted D4 monitor off antibiotics Will follow Gema Stewart MD Infectious Diseases Global Manager [facility] M [phone] O [phone] Subjective Date of service: 11/14/18 Principal diagnosis: Ac hypoxemic Resp Failure ; Possible Seizure; Ac. Met Encep halopathy; BRAD Interval history: Patient is now alert, follows commands c/o coughing, no fever for 2 days ROS unable to obtain Objective - Exam Narrative Exam: General: alert in NAD onHFO2 Head, Ears, Nose: Normocephalic, atraumatic. External ears, nose normal Eyes: Conjunctivae/corneas clear. No icterus. No ptosis. Neck: Supple, intubated Oral: +OGT Cardiovascular: S1, S2 normal. Respiratory: coarse bs angelika GI: Soft, non-tender; bowel sounds normal. No peritoneal signs Musculoskeletal: No pedal edema, no cyanosis. Skin: No rash or abscess Hem/Lymphatic: No palpable cervical or supraclavicular nodes. No lymphangitis Psych: calm, no agitation Neurological alert moving all extr EJ - Constitutional Vitals: Vital Signs Temp Pulse Resp BP Pulse Ox 98.1 F 85 19 95/53 98 11/14/18 07:00 11/14/18 06:00 11/14/18 06:00 11/14/18 06:00 11/14/18 07:50 Temperature -Last 24 Hours Temperature 98.1 F Temperature 98.9 F Temperature 99.5 F Temperature 99.2 F Temperature 98.7 F Temperature 97.9 F - Labs CBC & Chem 7: 11/14/18 04:19 11/14/18 04:19 Labs: Abnormal lab results 11/13/18 11/14/18 11/14/18 Range/Units 11:27 04:19 04:19 RBC 3.32 L (3.65-5.03) M/mm3 Hgb 9.7 L (10.1-14.3) gm/dl Hct 29.8 L (30.3-42.9) % Sodium 147 H (137-145) mmol/L Chloride 114.8 H (98-107) mmol/L Carbon Dioxide 18 L (22-30) mmol/L BUN 44 H (7-17) mg/dL Creatinine 2.2 H (0.7-1.2) mg/dL Urine Creatinine 45.0 H (0.1-20.0) mg/dL
--- NOTE | 2018-11-14 11:46 | Progress Note ---
Assessment and Plan Acute Renal Failure likely secondary to ischemic ATN, no obstruction: S/p Hypokalemia: S/P Hypernatremia: Hyperkalemia: -stable kidney function, good UOP -On IV hydration with NS@ 75 ml/hr -Renal ultrasound-negative -Monitor I/O's -Avoid nephrotoxic agents -Obtain daily weights -Continue to monitor renal function closely SIRS versus sepsis: -ID onboard Acute encephalopathy: Possible Seizures -Neurology onboard Acute Hypoxic Respiratory Failure: -On Oxygen via NC as per Pulmonary Subjective Date of service: 11/14/18 Principal diagnosis: Ac hypoxemic Resp Failure ; Possible Seizure; Ac. Met Encephalopathy; BRAD Interval history: follows simple commands, family at beside, all questions answered Objective - Vital Signs Vital signs: Vital Signs - 12hr 11/13/18 11/14/18 11/14/18 23:59 00:00 00:01 Temperature 99.5 F Pulse Rate 95 H 98 H Pulse Rate [ 95 H From Monitor] Respiratory 24 18 Rate Blood Pressure 103/78 O2 Sat by Pulse 98 95 Oximetry 11/14/18 11/14/18 11/14/18 00:31 01:01 02:00 Temperature Pulse Rate 92 H 121 H 87 Pulse Rate [ From Monitor] Respiratory 18 17 20 Rate Blood Pressure 103/78 103/78 129/60 O2 Sat by Pulse 100 92 98 Oximetry 11/14/18 11/14/18 11/14/18 03:01 03:34 04:00 Temperature 98.9 F Pulse Rate 134 H 135 H 137 H Pulse Rate [ 138 H From Monitor] Respiratory 21 27 H Rate Blood Pressure 129/60 155/78 167/143 O2 Sat by Pulse 95 93 Oximetry 11/14/18 11/14/18 11/14/18 04:26 04:51 05:00 Temperature Pulse Rate 104 H 97 H Pulse Rate [ From Monitor] Respiratory 26 H 23 19 Rate Blood Pressure 128/52 110/43 O2 Sat by Pulse 98 96 Oximetry 11/14/18 11/14/18 11/14/18 06:00 07:00 07:50 Temperature 98.1 F Pulse Rate 85 Pulse Rate [ From Monitor] Respiratory 19 Rate Blood Pressure 95/53 O2 Sat by Pulse 98 98 Oximetry - General Appearance General appearance: well-developed, frail EENT: ATNC, PERRL, mucous membranes dry Neck: no JVD, no carotid bruit Respiratory: Present: Decreased Breath Sounds Gastrointestinal: normoactive bowel sounds, no tenderness, no distended Integumentary: no rash, warm and dry Neurologic: other (follows simple commands) Musculoskeletal: other (trace pitting edema in BUE) Psychiatric: other (answers simple questions) - Lab 11/14/18 04:19 11/14/18 04:19 Most recent lab results Calcium 10.1 mg/dL (8.4-10.2) 11/14/18 04:19 Phosphorus 3.00 mg/dL (2.5-4.5) D 11/08/18 04:27 Magnesium 2.20 mg/dL (1.7-2.3) 11/05/18 16:31 45.0 mg/dL (0.1-20.0) H 11/13/18 11:27 40 mmol/L 11/06/18 Unknown 68 mg/dL (5-11.8) H 11/06/18 Unknown Medications & Allergies - Medications Allergies/Adverse Reactions: Allergies aspirin Allergy (Verified 11/06/18 17:06) Unknown Home Medications: Home Medications Medication Instructions Recorded Confirmed Last Taken Type Carvedilol [Coreg] 25 mg PO BID 11/06/18 11/06/18 Unknown History Furosemide [Lasix TAB] 20 mg PO HS 11/06/18 11/06/18 Unknown History Furosemide [Lasix TAB] 40 mg PO QAM 11/06/18 11/06/18 Unknown History Gabapentin [Neurontin] 800 mg PO BID 11/06/18 11/06/18 Unknown History Pravastatin Sodium [Pravastatin] 20 mg PO DAILY 11/06/18 11/06/18 Unknown History Ropinirole HCl [Requip] 1 mg PO TID 11/06/18 11/06/18 Unknown History Brimonidine Tartrate [Brimonidine 1 drop OU BID 11/08/18 11/08/18 Unknown History Tartrate 0.2%] Active Medications: Generic Name Dose Route Start Last Admin Trade Name Freq PRN Reason Stop Dose Admin Acetaminophen 650 mg 11/14/18 10:52 Tylenol PO Q6H PRN Non Cardiac Pain or Temp>100.5 Albuterol 2.5 mg 11/05/18 17:52 11/12/18 20:15 Proventil IH 2.5 mg Q3HRT PRN Administration Shortness Of Breath Lipase/Protease/Amylase 1 each 11/07/18 11:07 Pancredoris Cruz 10,500 Unit FEEDTUBE PRN PRN For Clogged Feeding Tube Carvedilol 6.25 mg 11/09/18 11:00 11/13/18 22:31 Coreg PO Not Given BID [facility] Dextrose 50 ml 11/05/18 17:59 D50w (25gm) Syringe IV PRN PRN Hypoglycemia Famotidine 20 mg 11/11/18 10:00 11/13/18 13:51 Pepcid PO Not Given DAILY [facility] Gabapentin 800 mg 11/08/18 10:00 11/13/18 22:31 Neurontin PO Not Given BID [facility] Hydralazine HCl 10 mg 11/05/18 21:30 11/14/18 03:34 Apresoline IV 10 mg Q6HR PRN Administration Hypertension Hydrophilic Ointment 1 applic 11/05/18 16:21 Vaseline Lip Therapy TP Q2HR PRN Dry Lips Sodium Chloride 1,000 mls @ 75 mls/hr 11/11/18 12:00 11/14/18 06:03 Nacl 0.9% 1000 Ml IV 75 mls/hr DIRECT NIKKO Administration Dextrose/Sodium Chloride 1,000 mls @ 42 mls/hr 11/14/18 11:00 D5ns 0.2% IV DIRECT [facility] Insulin Human Lispro 0 unit 11/06/18 12:00 11/14/18 06:03 Humalog SUB-Q Not Given Q6HR [facility] Protocol Latanoprost 1 drops 11/08/18 18:00 11/13/18 17:35 Latanoprost 0.005% OU 1 drops QPM NIKKO Administration Miscellaneous Medication 1 drop 11/08/18 22:00 11/13/18 22:30 Brimonidine Tartate OP 1 drop BID [facility] Administration Miscellaneous Medication 1 drop 11/14/18 22:00 Brimonidine Tartrate [Brimonidine Tartrate 0.2%] OU BID [facility] Morphine Sulfate 1 mg 11/14/18 10:52 Morphine IV Q4H PRN Pain , Severe (7-10) Multi-Ingred Cream/Lotion/Oil/Oint 1 applic 11/05/18 16:21 Artificial Tears Ophth Oint OU Q4HR PRN Dry Eye(s) Pravastatin Sodium 20 mg 11/08/18 10:00 11/13/18 13:51 Pravachol PO Not Given DAILY NIKKO Ropinirole HCl 1 mg 11/08/18 09:00 11/13/18 21:45 Requip PO Not Given TID NIKKO Simple Syrup 15 ml 11/07/18 11:07 Simple Syrup FEEDTUBE PRN PRN Hypoglycemia Simple Syrup 30 ml 11/07/18 11:07 Simple Syrup FEEDTUBE PRN PRN Hypoglycemia Sodium Bicarbonate 325 mg 11/07/18 11:07 Sodium Bicarbonate FEEDTUBE PRN PRN For Clogged Feeding Tube Sodium Chloride 10 ml 11/05/18 22:00 11/13/18 22:26 Sodium Chloride Flush Syringe 10 Ml IV 10 ml BID NIKKO Administration Sodium Chloride 10 ml 11/05/18 17:52 Sodium Chloride Flush Syringe 10 Ml IV PRN PRN LINE FLUSH
[2018-11-14] MEDS: MORPHINE IV PRN (11:52)
[2018-11-14] MEDS: SODIUM CHLORIDE FLUSH SYRINGE 10 ML IV SCH ×2 (11:53→21:49)
--- NOTE | 2018-11-14 18:24 | XRay Report ---
ABDOMEN 1 VIEW(S) INDICATION / CLINICAL INFORMATION: DHT placement. COMPARISON: Abdominal x-ray 11/06/2018 FINDINGS: TUBES / LINES: Dobbhoff feeding tube has tip in left mainstem bronchus. BOWEL GAS PATTERN: No significant abnormality. FREE AIR / EXTRALUMINAL GAS: None seen. ADDITIONAL FINDINGS: No significant additional findings. IMPRESSION: 1. Malpositioned Dobbhoff feeding tube in left bronchus. The nurse has already removed the Dobbhoff f eeding tube according to the technologist note entered at 5:12 PM 11/14/2018. Signer Name: Tyrone Fry MD Signed: 11/14/2018 6:20 PM Workstation Name: [id number]
[2018-11-14] MEDS: REQUIP PO SCH (20:52)
[2018-11-14] MEDS ORDERED: NON-FORMULARY (Brimonidine Tartrate [Brimonidine Tartrate 0.2%] 1 DROP) OU SCH (22:00)
[2018-11-14] MEDS: BRIMONIDINE OP SCH (23:30)
[2018-11-15] MEDS: MORPHINE IV PRN ×2 (01:00→09:27)
[2018-11-15] MEDS: COREG PO SCH ×3 (02:03→21:47)
[2018-11-15] MEDS: NEURONTIN PO SCH ×3 (02:03→21:48)
[2018-11-15 05:48] LABS: Hematocrit 29.3 % (30.3-42.9); Hemoglobin 9.4 gm/dl (10.1-14.3); Mean Corpuscular HGB Conc 32 % (30-34); Mean Corpuscular Volume 92 fl (79-97); Red Blood Count 3.19 M/mm3 (3.65-5.03); Red Cell Distribution Width 14.6 % (13.2-15.2)
[2018-11-15 05:52] LABS: Platelet Count 176 K/mm3 (140-440)
[2018-11-15] MEDS: REQUIP PO SCH ×3 (08:31→20:37)
[2018-11-15] MEDS: BRIMONIDINE OP SCH ×3 (10:35→21:51)
[2018-11-15] MEDS: PEPCID PO SCH (10:39)
[2018-11-15] MEDS: SODIUM CHLORIDE FLUSH SYRINGE 10 ML IV SCH ×2 (10:40→21:49)
--- NOTE | 2018-11-15 12:00 | Progress Note ---
Assessment and Plan Acute Renal Failure likely secondary to ischemic ATN, no obstruction: S/p Hypokalemia: S/P Hypernatremia: Hyperkalemia: -stable kidney function, good UOP -will switch IVF to d5W 50 cc/h for rising sodium -Renal ultrasound-negative -Monitor I/O's -Avoid nephrotoxic agents -Obtain daily weights -Continue to monitor renal function closely SIRS versus sepsis: -ID onboard Acute encephalopathy: Possible Seizures -Neurology onboard Acute Hypoxic Respiratory Failure: -On Oxygen via NC as per Pulmonary Subjective Date of service: 11/15/18 Principal diagnosis: Ac hypoxemic Resp Failure ; Possible Seizure; Ac. Met Encephalopathy; BRAD Interval history: awake, follows simple commands, no family at bedside Objective - Vital Signs Vital signs: Vital Signs - 12hr 11/15/18 11/15/18 11/15/18 00:00 01:00 01:33 Temperature Pulse Rate 130 H 124 H Pulse Rate [ 124 H From Monitor] Respiratory 18 24 Rate Blood Pressure 205/161 157/104 Blood Pressure [Left] O2 Sat by Pulse 96 96 98 Oximetry 11/15/18 11/15/18 11/15/18 02:00 03:00 03:50 Temperature 98.4 F Pulse Rate 96 H 86 Pulse Rate [ From Monitor] Respiratory 16 14 Rate Blood Pressure 154/57 153/62 Blood Pressure [Left] O2 Sat by Pulse 96 96 Oximetry 11/15/18 11/15/18 11/15/18 04:00 05:00 05:20 Temperature Pulse Rate 102 H 134 H Pulse Rate [ 119 H From Monitor] Respiratory 15 21 Rate Blood Pressure 153/62 153/62 Blood Pressure [Left] O2 Sat by Pulse 96 92 98 Oximetry 11/15/18 11/15/18 11/15/18 06:00 07:31 08:38 Temperature 97.8 F Pulse Rate 89 Pulse Rate [ From Monitor] Respiratory 15 Rate Blood Pressure 153/62 Blood Pressure [Left] O2 Sat by Pulse 74 L 99 Oximetry 11/15/18 09:35 Temperature 98.6 F Pulse Rate 110 H Pulse Rate [ From Monitor] Respiratory Rate Blood Pressure Blood Pressure 154/86 [Left] O2 Sat by Pulse Oximetry - General Appearance General appearance: well-developed EENT: ATNC, PERRL, mucous membranes dry Neck: no JVD, no carotid bruit Respiratory: Present: Decreased Breath Sounds Gastrointestinal: normoactive bowel sounds, no tenderness, no distended Integumentary: no rash, warm and dry Neurologic: other (follows simple commands) Musculoskeletal: other (trace pitting edema in BUE) Psychiatric: other - Lab 11/15/18 05:30 11/15/18 04:00 Most recent lab results Calcium 10.0 mg/dL (8.4-10.2) 11/15/18 04:00 Phosphorus 3.00 mg/dL (2.5-4.5) D 11/08/18 04:27 Magnesium 2.20 mg/dL (1.7-2.3) 11/05/18 16:31 45.0 mg/dL (0.1-20.0) H 11/13/18 11:27 40 mmol/L 11/06/18 Unknown 68 mg/dL (5-11.8) H 11/06/18 Unknown Medications & Allergies - Medications Allergies/Adverse Reactions: Allergies aspirin Allergy (Verified 11/06/18 17:06) Unknown Home Medications: Home Medications Medication Instructions Recorded Confirmed Last Taken Type Carvedilol [Coreg] 25 mg PO BID 11/06/18 11/06/18 Unknown History Furosemide [Lasix TAB] 20 mg PO HS 11/06/18 11/06/18 Unknown History Furosemide [Lasix TAB] 40 mg PO QAM 11/06/18 11/06/18 Unknown History Gabapentin [Neurontin] 800 mg PO BID 11/06/18 11/06/18 Unknown History Pravastatin Sodium [Pravastatin] 20 mg PO DAILY 11/06/18 11/06/18 Unknown History Ropinirole HCl [Requip] 1 mg PO TID 11/06/18 11/06/18 Unknown History Brimonidine Tartrate [Brimonidine 1 drop OU BID 11/08/18 11/08/18 Unknown History Tartrate 0.2%] Active Medications: Generic Name Dose Route Start Last Admin Trade Name Freq PRN Reason Stop Dose Admin Acetaminophen 650 mg 11/14/18 10:52 Tylenol PO Q6H PRN Non Cardiac Pain or Temp>100.5 Albuterol 2.5 mg 11/05/18 17:52 11/12/18 20:15 Proventil IH 2.5 mg Q3HRT PRN Administration Shortness Of Breath Lipase/Protease/Amylase 1 each 11/07/18 11:07 Pancredoris Cruz 10,500 Unit FEEDTUBE PRN PRN For Clogged Feeding Tube Carvedilol 6.25 mg 11/09/18 11:00 11/15/18 02:03 Coreg PO Not Given BID [facility] Dextrose 50 ml 11/05/18 17:59 D50w (25gm) Syringe IV PRN PRN Hypoglycemia Famotidine 20 mg 11/11/18 10:00 11/13/18 13:51 Pepcid PO Not Given DAILY [facility] Gabapentin 800 mg 11/08/18 10:00 11/15/18 02:03 Neurontin PO Not Given BID [facility] Hydralazine HCl 10 mg 11/05/18 21:30 11/14/18 03:34 Apresoline IV 10 mg Q6HR PRN Administration Hypertension Hydrophilic Ointment 1 applic 11/05/18 16:21 Vaseline Lip Therapy TP Q2HR PRN Dry Lips Insulin Human Lispro 0 unit 11/06/18 12:00 11/14/18 06:03 Humalog SUB-Q Not Given Q6HR [facility] Protocol Latanoprost 1 drops 11/08/18 18:00 11/13/18 17:35 Latanoprost 0.005% OU 1 drops QPM NIKKO Administration Miscellaneous Medication 1 drop 11/08/18 22:00 11/14/18 23:30 Brimonidine Tartate OP 1 drop BID NIKKO Administration Morphine Sulfate 1 mg 11/14/18 10:52 11/15/18 09:27 Morphine IV 1 mg Q4H PRN Administration Pain , Severe (7-10) Multi-Ingred Cream/Lotion/Oil/Oint 1 applic 11/05/18 16:21 Artificial Tears Ophth Oint OU Q4HR PRN Dry Eye(s) Pravastatin Sodium 20 mg 11/08/18 10:00 11/13/18 13:51 Pravachol PO Not Given DAILY [facility] Ropinirole HCl 1 mg 11/08/18 09:00 11/14/18 20:52 Requip PO Not Given TID [facility] Simple Syrup 15 ml 11/07/18 11:07 Simple Syrup FEEDTUBE PRN PRN Hypoglycemia Simple Syrup 30 ml 11/07/18 11:07 Simple Syrup FEEDTUBE PRN PRN Hypoglycemia Sodium Bicarbonate 325 mg 11/07/18 11:07 Sodium Bicarbonate FEEDTUBE PRN PRN For Clogged Feeding Tube Sodium Chloride 10 ml 11/05/18 22:00 11/14/18 21:49 Sodium Chloride Flush Syringe 10 Ml IV 10 ml BID NIKKO Administration Sodium Chloride 10 ml 11/05/18 17:52 Sodium Chloride Flush Syringe 10 Ml IV PRN PRN LINE FLUSH
--- NOTE | 2018-11-15 12:22 | Vascular Lab Report ---
DUPLEX DOPPLER UPPER EXTREMITY VENOUS, LEFT INDICATION: Left arm swelling for 10 days. TECHNIQUE: Duplex doppler imaging was performed through the veins of the left upper extremity using venous compr ession and other maneuvers. COMPARISON: None available. FINDINGS: Left Internal Jugular vein: Negative. Left Subclavian vein: Negative. Left Axillary vein: Negative. Left Brachial vein: Negative. Left Forearm veins: Negative. Left Basilic vein (superficial): Negative. Additional findings: None. IMPRESSION: 1. No sonographic evidence for DVT in the left upper extremity. Signer Name: Michael Rodgers Jr, MD Signed: 11/15/2018 12:17 PM Workstation Name: [id number]
[2018-11-15] MEDS: HumaLOG SUB-Q SCH ×2 (12:32→18:42)
--- NOTE | 2018-11-15 12:55 | Progress Note ---
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 Discussed with RING STAMPER -ABG and CXR as indicated - continue accuchecks with glycemic control per SSI for target blood glucose <180mg/dL - Prevention of delirium, maintenance of sleep-wake cycle - Azotemia per nephrology; continue gentle hydration- change IVF to D5 1/ 4Nsaline in view of hypernatremia. Once feeding tube is placed, start free water flushes - Avoid nephrotoxic agents, adjust all antibiotics and medications for CrCL and GFR - continue other care per attending / other consultants CONDITION:FAIR PROGNOSIS: FAIR CODE STATUS: FULL CODE Updated her son at the bedside Subjective Date of service: 11/15/18 Principal diagnosis: Ac hypoxemic Resp Failure ; Possible Seizure; Ac. Met Encephalopathy; BRAD Interval history: Patient is seen today for: Acute Respiratory Failure with Hypoxemia; Gram positive bacteremia (in clusters); Possible Seizure; Lactic Acidosis; Hypernatermia; Acute Metabolic Encephalopathy; BRAD possible secondary to Ischemic ATN Seen and examined at bedside; 24hour events reviewed; nursing and respiratory care staff consulted; no adverse overnight events reported to me; resting peacefully in bed; awake and alert, No emesis or overt aspiration; no reported seizures; failed swallow evaluation, needs feeding tube. High flow oxygen at 40L and 40%, nocturnal BIPAP Vitals, labs, medications, chart reviewed. Discussed with RN and RT. Son at the bedside Objective Vital Signs - 12hr 11/15/18 11/15/18 11/15/18 01:00 01:33 02:00 Temperature Pulse Rate 124 H 96 H Pulse Rate [ From Monitor] Respiratory 24 16 Rate Blood Pressure 157/104 154/57 Blood Pressure [Left] O2 Sat by Pulse 96 98 96 Oximetry 11/15/18 11/15/18 11/15/18 03:00 03:50 04:00 Temperature 98.4 F Pulse Rate 86 102 H Pulse Rate [ 119 H From Monitor] Respiratory 14 15 Rate Blood Pressure 153/62 153/62 Blood Pressure [Left] O2 Sat by Pulse 96 96 Oximetry 11/15/18 11/15/18 11/15/18 05:00 05:20 06:00 Temperature Pulse Rate 134 H 89 Pulse Rate [ From Monitor] Respiratory 21 15 Rate Blood Pressure 153/62 153/62 Blood Pressure [Left] O2 Sat by Pulse 92 98 74 L Oximetry 11/15/18 11/15/18 11/15/18 07:31 08:38 09:35 Temperature 97.8 F 98.6 F Pulse Rate 110 H Pulse Rate [ From Monitor] Respiratory Rate Blood Pressure Blood Pressure 154/86 [Left] O2 Sat by Pulse 99 Oximetry Constitutional: no acute distress, appears uncomfortable, other Eyes: non-icteric ENT: oropharynx moist Neck: supple, no lymphadenopathy, no JVD, other (no thyromegaly) Effort: mildly labored Ascultation: Bilateral: diminished breath sounds, rhonchi (bases) Percussion: Bilateral: not dull Cardiovascular: regular rate and rhythm, murmur noted (systolic), other Gastrointestinal: normoactive bowel sounds, soft, non-tender, non-distended Integumentary: normal Extremities: no cyanosis, no edema, pink and warm, pulses normal, no ischemia or petechiae Neurologic: non-focal exam (moves all extremities, obeys onse step commands), pupils equal and round Psychiatric: mood appropriate, affect normal CBC and BMP: 11/15/18 05:30 11/15/18 04:00 ABG, PT/INR, D-dimer: ABG POC ABG pH 7.415 (7.35-7.45) 11/12/18 04:44 POC ABG pCO2 34.0 (35-45) L 11/12/18 04:44 POC ABG pO2 138 (80-105) H 11/12/18 04:44 POC ABG HCO3 21.8 (22-26 mml/L) 11/12/18 04:44 POC ABG Total CO2 23 (23-27mmol/L) 11/12/18 04:44 POC ABG O2 Sat 99 11/12/18 04:44 PT/INR, D-dimer PT 15.2 Sec. (12.2-14.9) H 11/11/18 10:03 INR 1.23 (0.87-1.13) H 11/11/18 10:03 Abnormal lab findings: Abnormal Labs 11/05/18 11/05/18 11/05/18 16:31 16:31 16:31 WBC RBC Hgb Hct Plt Count 139 L [place] % (Auto) Lymph # 0.7 L Seg Neutrophils % 78.8 H PT INR POC ABG pH POC ABG pCO2 POC ABG pO2 Sodium 148 H Potassium 3.2 L Chloride 110.6 H Carbon Dioxide 17 L BUN 18 H Creatinine 1.9 H Glucose 205 H POC Glucose Lactic Acid 8.20 H* Calcium 10.9 H Phosphorus Total Creatine Kinase C-Reactive Protein Total Protein Albumin 3.6 L Urine WBC (Auto) Urine Creatinine Urine Total Protein Salicylates Acetaminophen 11/05/18 11/05/18 11/05/18 16:31 16:31 16:31 WBC RBC Hgb Hct Plt Count [place] % (Auto) Lymph # Seg Neutrophils % PT INR POC ABG pH POC ABG pCO2 POC ABG pO2 Sodium Potassium Chloride Carbon Dioxide BUN Creatinine Glucose POC Glucose Lactic Acid Calcium Phosphorus Total Creatine Kinase < 7 L C-Reactive Protein Total Protein Albumin Urine WBC (Auto) Urine Creatinine Urine Total Protein Salicylates < 0.3 L Acetaminophen < 5.0 L 11/05/18 11/05/18 11/05/18 17:29 17:42 20:47 WBC RBC Hgb Hct Plt Count [place] % (Auto) Lymph # Seg Neutrophils % PT INR POC ABG pH POC ABG pCO2 33.4 L POC ABG pO2 136 H Sodium Potassium Chloride Carbon Dioxide BUN Creatinine Glucose POC Glucose Lactic Acid 3.30 H* Calcium Phosphorus Total Creatine Kinase C-Reactive Protein Total Protein Albumin Urine WBC (Auto) 19.0 H Urine Creatinine Urine Total Protein Salicylates Acetaminophen 11/05/18 11/05/18 11/06/18 20:47 22:42 04:09 WBC 4.4 L RBC Hgb Hct Plt Count 102 L [place] % (Auto) 13.2 H Lymph # 1.0 L Seg Neutrophils % PT INR POC ABG pH POC ABG pCO2 POC ABG pO2 Sodium Potassium Chloride Carbon Dioxide BUN Creatinine Glucose POC Glucose 121 H Lactic Acid Calcium Phosphorus Total Creatine Kinase C-Reactive Protein Total Protein Albumin Urine WBC (Auto) Urine Creatinine 166.9 H Urine Total Protein Salicylates Acetaminophen 11/06/18 11/06/18 11/06/18 04:09 05:05 07:31 WBC RBC Hgb Hct Plt Count [place] % (Auto) Lymph # Seg Neutrophils % PT INR POC ABG pH 7.509 H POC ABG pCO2 < 30 L POC ABG pO2 115 H Sodium 150 H Potassium 2.7 L* Chloride 118.2 H Carbon Dioxide 21 L BUN 21 H Creatinine 1.6 H Glucose 125 H POC Glucose Lactic Acid 2.50 H* Calcium Phosphorus Total Creatine Kinase C-Reactive Protein Total Protein 5.7 L Albumin 3.1 L Urine WBC (Auto) Urine Creatinine Urine Total Protein Salicylates Acetaminophen 11/06/18 11/06/18 11/06/18 12:04 16:21 18:04 WBC RBC Hgb Hct Plt Count [place] % (Auto) Lymph # Seg Neutrophils % PT INR POC ABG pH POC ABG pCO2 POC ABG pO2 Sodium Potassium 5.4 H D Chloride Carbon Dioxide BUN Creatinine Glucose POC Glucose 122 H 110 H Lactic Acid Calcium Phosphorus Total Creatine Kinase C-Reactive Protein Total Protein Albumin Urine WBC (Auto) Urine Creatinine Urine Total Protein Salicylates Acetaminophen 11/06/18 11/06/18 11/07/18 21:28 Unknown 04:02 WBC RBC Hgb Hct Plt Count [place] % (Auto) Lymph # Seg Neutrophils % PT INR POC ABG pH POC ABG pCO2 POC ABG pO2 Sodium 152 H Potassium Chloride 123.4 H Carbon Dioxide 20 L BUN 23 H Creatinine 1.5 H Glucose 111 H POC Glucose 125 H Lactic Acid Calcium Phosphorus 1.00 L Total Creatine Kinase C-Reactive Protein Total Protein Albumin Urine WBC (Auto) Urine Creatinine 155.8 H Urine Total Protein 68 H Salicylates Acetaminophen 11/07/18 11/07/18 11/07/18 09:07 11:05 15:48 WBC 4.1 L RBC 3.62 L Hgb Hct Plt Count 77 L [place] % (Auto) Lymph # Seg Neutrophils % PT INR POC ABG pH 7.314 L POC ABG pCO2 POC ABG pO2 Sodium Potassium Chloride Carbon Dioxide BUN Creatinine Glucose POC Glucose Lactic Acid Calcium Phosphorus Total Creatine Kinase C-Reactive Protein 3.50 H Total Protein Albumin Urine WBC (Auto) Urine Creatinine Urine Total Protein Salicylates Acetaminophen 11/08/18 11/08/18 11/08/18 04:27 05:29 12:27 WBC RBC Hgb Hct Plt Count [place] % (Auto) Lymph # Seg Neutrophils % PT INR POC ABG pH POC ABG pCO2 33.4 L POC ABG pO2 78 L Sodium 146 H Potassium Chloride 117.1 H Carbon Dioxide 18 L BUN 19 H Creatinine 1.6 H Glucose 111 H POC Glucose 108 H Lactic Acid Calcium Phosphorus Total Creatine Kinase C-Reactive Protein Total Protein Albumin Urine WBC (Auto) Urine Creatinine Urine Total Protein Salicylates Acetaminophen 11/08/18 11/08/18 11/08/18 12:27 18:11 23:50 WBC RBC Hgb Hct Plt Count [place] % (Auto) Lymph # Seg Neutrophils % PT INR POC ABG pH POC ABG pCO2 POC ABG pO2 Sodium Potassium Chloride Carbon Dioxide BUN Creatinine Glucose POC Glucose 188 H 126 H 149 H Lactic Acid Calcium Phosphorus Total Creatine Kinase C-Reactive Protein Total Protein Albumin Urine WBC (Auto) Urine Creatinine Urine Total Protein Salicylates Acetaminophen 11/09/18 11/09/18 11/09/18 03:32 04:12 04:12 WBC 3.6 L RBC 2.99 L Hgb 8.8 L Hct 26.9 L Plt Count 81 L [place] % (Auto) Lymph # Seg Neutrophils % PT INR POC ABG pH 7.329 L POC ABG pCO2 POC ABG pO2 Sodium Potassium Chloride 114.8 H Carbon Dioxide 20 L BUN 28 H Creatinine 1.9 H Glucose 144 H POC Glucose Lactic Acid Calcium 8.2 L Phosphorus Total Creatine Kinase C-Reactive Protein Total Protein Albumin Urine WBC (Auto) Urine Creatinine Urine Total Protein Salicylates Acetaminophen 11/09/18 11/09/18 11/09/18 05:24 12:59 17:59 WBC RBC Hgb Hct Plt Count [place] % (Auto) Lymph # Seg Neutrophils % PT INR POC ABG pH POC ABG pCO2 POC ABG pO2 Sodium Potassium Chloride Carbon Dioxide BUN Creatinine Glucose POC Glucose 163 H 175 H 116 H Lactic Acid Calcium Phosphorus Total Creatine Kinase C-Reactive Protein Total Protein Albumin Urine WBC (Auto) Urine Creatinine Urine Total Protein Salicylates Acetaminophen 11/10/18 11/10/18 11/10/18 00:45 03:57 06:45 WBC RBC Hgb Hct Plt Count [place] % (Auto) Lymph # Seg Neutrophils % PT INR POC ABG pH 7.332 L POC ABG pCO2 POC ABG pO2 Sodium Potassium Chloride Carbon Dioxide BUN Creatinine Glucose POC Glucose 201 H 148 H Lactic Acid Calcium Phosphorus Total Creatine Kinase C-Reactive Protein Total Protein Albumin Urine WBC (Auto) Urine Creatinine Urine Total Protein Salicylates Acetaminophen 11/10/18 11/10/18 11/10/18 09:52 09:52 12:36 WBC RBC 3.48 L Hgb Hct Plt Count 103 L [place] % (Auto) 14.8 H Lymph # 0.6 L Seg Neutrophils % PT INR POC ABG pH POC ABG pCO2 POC ABG pO2 Sodium Potassium Chloride 109.3 H Carbon Dioxide 21 L BUN 36 H Creatinine 2.1 H Glucose 134 H POC Glucose 142 H Lactic Acid Calcium Phosphorus Total Creatine Kinase C-Reactive Protein Total Protein Albumin Urine WBC (Auto) Urine Creatinine Urine Total Protein Salicylates Acetaminophen 11/10/18 11/10/18 11/11/18 17:31 23:34 05:01 WBC 4.1 L RBC 3.11 L Hgb 9.1 L Hct 27.7 L Plt Count 97 L [place] % (Auto) Lymph # Seg Neutrophils % PT INR POC ABG pH POC ABG pCO2 POC ABG pO2 Sodium Potassium Chloride Carbon Dioxide BUN Creatinine Glucose POC Glucose 152 H 163 H Lactic Acid Calcium Phosphorus Total Creatine Kinase C-Reactive Protein Total Protein Albumin Urine WBC (Auto) Urine Creatinine Urine Total Protein Salicylates Acetaminophen 11/11/18 11/11/18 11/11/18 05:01 05:34 10:03 WBC RBC Hgb Hct Plt Count [place] % (Auto) Lymph # Seg Neutrophils % PT 15.2 H INR 1.23 H POC ABG pH POC ABG pCO2 POC ABG pO2 Sodium Potassium 5.3 H Chloride 108.2 H Carbon Dioxide 21 L BUN 39 H Creatinine 2.2 H Glucose 155 H POC Glucose 159 H Lactic Acid Calcium Phosphorus Total Creatine Kinase C-Reactive Protein Total Protein Albumin Urine WBC (Auto) Urine Creatinine Urine Total Protein Salicylates Acetaminophen 11/11/18 11/11/18 11/11/18 12:36 17:00 17:25 WBC RBC Hgb Hct Plt Count [place] % (Auto) Lymph # Seg Neutrophils % PT INR POC ABG pH POC ABG pCO2 POC ABG pO2 121 H Sodium Potassium Chloride Carbon Dioxide BUN Creatinine Glucose POC Glucose 147 H 116 H Lactic Acid Calcium Phosphorus Total Creatine Kinase C-Reactive Protein Total Protein Albumin Urine WBC (Auto) Urine Creatinine Urine Total Protein Salicylates Acetaminophen 0711/11/18 11/12/18 20:33 23:46 04:28 WBC RBC 3.26 L Hgb 9.6 L Hct 29.2 L Plt Count 126 L [place] % (Auto) Lymph # Seg Neutrophils % PT INR POC ABG pH 7.247 L POC ABG pCO2 53.6 H POC ABG pO2 Sodium Potassium Chloride Carbon Dioxide BUN Creatinine Glucose POC Glucose 130 H Lactic Acid Calcium Phosphorus Total Creatine Kinase C-Reactive Protein Total Protein Albumin Urine WBC (Auto) Urine Creatinine Urine Total Protein Salicylates Acetaminophen 11/12/18 11/12/18 11/13/18 04:28 04:44 04:49 WBC RBC 2.89 L Hgb 8.6 L Hct 25.7 L Plt Count 133 L [place] % (Auto) Lymph # Seg Neutrophils % PT INR POC ABG pH POC ABG pCO2 34.0 L POC ABG pO2 138 H Sodium Potassium 5.2 H Chloride 109.9 H Carbon Dioxide 20 L BUN 40 H Creatinine 2.2 H Glucose 112 H POC Glucose Lactic Acid Calcium Phosphorus Total Creatine Kinase C-Reactive Protein Total Protein 5.9 L Albumin 2.5 L Urine WBC (Auto) Urine Creatinine Urine Total Protein Salicylates Acetaminophen 11/13/18 11/13/18 11/14/18 04:49 11:27 04:19 WBC RBC 3.32 L Hgb 9.7 L Hct 29.8 L Plt Count [place] % (Auto) Lymph # Seg Neutrophils % PT INR POC ABG pH POC ABG pCO2 POC ABG pO2 Sodium Potassium 5.1 H Chloride 113.7 H Carbon Dioxide 21 L BUN 44 H Creatinine 2.3 H Glucose POC Glucose Lactic Acid Calcium Phosphorus Total Creatine Kinase C-Reactive Protein Total Protein Albumin Urine WBC (Auto) Urine Creatinine 45.0 H Urine Total Protein Salicylates Acetaminophen 11/14/18 11/14/18 11/15/18 04:19 17:45 04:00 WBC RBC Hgb Hct Plt Count [place] % (Auto) Lymph # Seg Neutrophils % PT INR POC ABG pH POC ABG pCO2 POC ABG pO2 Sodium 147 H 150 H Potassium Chloride 114.8 H 118.9 H Carbon Dioxide 18 L 18 L BUN 44 H 45 H Creatinine 2.2 H 2.3 H Glucose POC Glucose 68 L Lactic Acid Calcium Phosphorus Total Creatine Kinase C-Reactive Protein Total Protein Albumin Urine WBC (Auto) Urine Creatinine Urine Total Protein Salicylates Acetaminophen 11/15/18 05:30 WBC RBC 3.19 L Hgb 9.4 L Hct 29.3 L Plt Count [place] % (Auto) Lymph # Seg Neutrophils % PT INR POC ABG pH POC ABG pCO2 POC ABG pO2 Sodium Potassium Chloride Carbon Dioxide BUN Creatinine Glucose POC Glucose Lactic Acid Calcium Phosphorus Total Creatine Kinase C-Reactive Protein Total Protein Albumin Urine WBC (Auto) Urine Creatinine Urine Total Protein Salicylates Acetaminophen Chest x-ray: image reviewed Allied health notes reviewed: nursing
--- NOTE | 2018-11-15 14:43 | Progress Note ---
Assessment and Plan Assessment and plan: Patient is a 82 yo woman (No prior admission for review, first visit in our EMR. Also, her is in Hospice for metastatic cancer per son Lauro) with a history of hypertension, dyslipidemia, OA s/p bilateral TKR and possible CHF who presented to [facility] ED with AMS. Apparently, patient was found unresponsive in the bed and seizing. On EMS arrival patient was noted to have a GCS of 3 and was placed on oxygen mask and intubated in the ED on arrival 11/05/18. Initial Temp was noted as 102.2. In the ED patient was intubated due to AMS and Acute Hypoxemic Respiratory Failure, and is unable to protect her airway, Teleneurology consulted in ED. Pt deemed not a candidate for TPA. Initially pCXR on 11/05/18 showed ETT in good position, no other significant findings, CT abd/pelvis without contrast showed mild bibasilar lung atelectasis as well as mildly distended gallbladder with minimal cholelithiasis. 11/10/18 pCXR showed developing Atelectasis and bilateral pleural effusion. Then pCXR on 11/11/18 showed increasing pleural parenchymal opacity LLL. Patient was eventually extubated on 11/11/18 and placed on bipap 50%. Then on 11/13/18 bipap removed in AM and patient transferred out of the ICU to [facility]. * Renal us: Small left renal cyst, negative for obstruction or mass * MRI Head: negative for acute pathology * Culture: Staph homis in blood * MSSA trach culture * CT chest wo contrast 11/11/18 IMPRESSION: Small pleural effusions, left greater than right. Basilar consolidation is probably secondary to atelectasis and less likely pneumonia. The remainder of the lungs appear clear. * 11/07/18 2D ECHO Conclusions: Mild to moderate concentric LVH, est EF 40-45%, left ventricular diastolic filling pattern is c/w pseudonormalization, RVSF mildly reduced, mild TR, small pericardial effusion, circumferential, no evidence of tamponade Acute hypoxic respiratory failure >96 hours, poa: currently extubated on Sunday11/11/18, off Bipap, on high flow and Pulm is following MSSA Sepsis Left Lobar Pneumonia: treated with Abx, ID following. Staph Hominis Bacteremia: Repeat blood cultures negative, ID following Hyperkalemia: treated with kayexalate and monitor bmp closely, Nephrology is following Acute cystitis: treated with Abx, monitor bmp closely Hypertensive Urgency: Resume Coreg, Hydrazine Status Epilepticus, poa: Neurology is following, treat with prn IV ativan Lactic Acidosis, treat with renal failure Hypernatermia resolved: monitor bmp closely Acute Metabolic Encephalopathy Thrombocytopenia; improving, monitor CBC closely ARF due to suspect ATN, poa: Nephrology following. Dysphagia, failed swallow evaluation: dobhuff and speech therapy ICU deconditioning: order pt/ot [place] removed after 24hr urine collection with a Purex in right EJ removed, midline placed Left arm swollen: venous doppler ordered which was negative for DVT D/C to LTACH once accepted History Interval history: Patient was seen and examined. Follow-up on current diagnosis of AMS and respiratory failure. No overnight events reported to me. Imaging, nursing note, chart, labs and old chart reviewed. Moved to [facility] on 11/13/18 from ICU Hospitalist Physical - Physical exam Narrative exam: Gen: ill appearing, mild increase in accessory muscles, off bipap on high flow O2, lethargic HEENT: NCAT, EOMI, PERRL, OP Clear Neck: supple, no adenopathy, no thyromegaly, no JVD CVS/Heart: Regular tachycardia normal S1S2, pulses present bilaterally Chest/Lungs: tachypneic, diminished bs bilatearal, Symmetrical chest expansion, good air entry bilaterally GI/Abdomen: soft, NTND, good bowel sounds, no guarding or rebound /Bladder: no suprapubic tenderness, no CVA or paraspinal tenderness Extermity/Skin: dependent edema, pale skin MSK: doesn't follow commands Neuro: CN 2-12 grossly intact, not following commands Psych: calm - Constitutional Vitals: Temp Pulse Resp BP Pulse Ox 98.6 F 101 H 20 154/86 98 11/15/18 09:35 11/15/18 12:00 11/15/18 09:00 11/15/18 09:35 11/15/18 09:00 General appearance: Absent: severe distress Results - Labs CBC & Chem 7: 11/15/18 05:30 11/15/18 04:00 Labs: Laboratory Last Values WBC 6.3 K/mm3 (4.5-11.0) 11/15/18 05:30 RBC 3.19 M/mm3 (3.65-5.03) L 11/15/18 05:30 Hgb 9.4 gm/dl (10.1-14.3) L 11/15/18 05:30 Hct 29.3 % (30.3-42.9) L 11/15/18 05:30 MCV 92 fl (79-97) 11/15/18 05:30 MCH 30 pg (28-32) 11/15/18 05:30 MCHC 32 % (30-34) 11/15/18 05:30 RDW 14.6 % (13.2-15.2) 11/15/18 05:30 Plt Count 176 K/mm3 (140-440) 11/15/18 05:30 Lymph % (Auto) 13.4 % (13.4-35.0) 11/10/18 09:52 [place] % (Auto) 14.8 % (0.0-7.3) H 11/10/18 09:52 Eos % (Auto) 1.6 % (0.0-4.3) 11/10/18 09:52 Baso % (Auto) 0.3 % (0.0-1.8) 11/10/18 09:52 Lymph # 0.6 K/mm3 (1.2-5.4) L 11/10/18 09:52 [place] # 0.7 K/mm3 (0.0-0.8) 11/10/18 09:52 Eos # 0.1 K/mm3 (0.0-0.4) 11/10/18 09:52 Baso # 0.0 K/mm3 (0.0-0.1) 11/10/18 09:52 Seg Neutrophils % 69.9 % (40.0-70.0) 11/10/18 09:52 Seg Neutrophils # 3.2 K/mm3 (1.8-7.7) 11/10/18 09:52 PT 15.2 Sec. (12.2-14.9) H 11/11/18 10:03 INR 1.23 (0.87-1.13) H 11/11/18 10:03 APTT 31.8 Sec. (24.2-36.6) 11/11/18 10:03 Heparin Anti-Xa, Unfract Negative (Negative) 11/08/18 13:49 POC ABG pH 7.415 (7.35-7.45) 11/12/18 04:44 POC ABG pCO2 34.0 (35-45) L 11/12/18 04:44 POC ABG pO2 138 (80-105) H 11/12/18 04:44 POC ABG HCO3 21.8 (22-26 mml/L) 11/12/18 04:44 POC ABG Total CO2 23 (23-27mmol/L) 11/12/18 04:44 POC ABG O2 Sat 99 11/12/18 04:44 POC ABG Base Excess -3 ((-2) - (+3)mmol/L) 11/12/18 04:44 30 % 11/12/18 04:44 Sodium 150 mmol/L (137-145) H 11/15/18 04:00 Potassium 4.6 mmol/L (3.6-5.0) 11/15/18 04:00 Chloride 118.9 mmol/L (98-107) H 11/15/18 04:00 Carbon Dioxide 18 mmol/L (22-30) L 11/15/18 04:00 18 mmol/L 11/15/18 04:00 BUN 45 mg/dL (7-17) H 11/15/18 04:00 2.3 mg/dL (0.7-1.2) H 11/15/18 04:00 Estimated GFR 20 ml/min 11/15/18 04:00 20 % 11/15/18 04:00 Glucose 91 mg/dL (65-100) 11/15/18 04:00 POC Glucose 92 (70-105) 11/15/18 12:00 Lactic Acid 0.70 mmol/L (0.7-2.0) 11/09/18 04:12 Calcium 10.0 mg/dL (8.4-10.2) 11/15/18 04:00 Phosphorus 3.00 mg/dL (2.5-4.5) D 11/08/18 04:27 Magnesium 2.20 mg/dL (1.7-2.3) 11/05/18 16:31 0.40 mg/dL (0.1-1.2) 11/12/18 04:28 AST 27 units/L (5-40) 11/12/18 04:28 ALT 24 units/L (7-56) 11/12/18 04:28 66 units/L (35-129) 11/12/18 04:28 44.0 umol/L (25-60) 11/05/18 17:28 < 7 units/L (30-135) L 11/05/18 16:31 0.019 ng/mL (0.00-0.029) 11/05/18 16:31 3.50 mg/dL (0.00-1.30) H 11/07/18 15:48 5.9 g/dL (6.3-8.2) L 11/12/18 04:28 2.5 g/dL (3.9-5) L 11/12/18 04:28 0.7 % 11/12/18 04:28 See scanned result 11/08/18 13:49 TSH 0.972 mlU/mL (0.270-4.200) 11/05/18 16:31 Yellow (Yellow) 11/05/18 20:47 Slightly-cloudy (Clear) 11/05/18 20:47 5.0 (5.0-7.0) 11/05/18 20:47 Ur Specific [place] 1.016 (1.003-1.030) 11/05/18 20:47 100 mg/dl mg/dL (Negative) 11/05/18 20:47 50 mg/dL (Negative) 11/05/18 20:47 Neg mg/dL (Negative) 11/05/18 20:47 Sm (Negative) 11/05/18 20:47 Pos (Negative) 11/05/18 20:47 Neg (Negative) 11/05/18 20:47 < 2.0 mg/dL (<2.0) 11/05/18 20:47 Ur Leukocyte Esterase Tr (Negative) 11/05/18 20:47 19.0 /HPF (0.0-6.0) H 11/05/18 20:47 4.0 /HPF (0.0-6.0) 11/05/18 20:47 U Epithel Cells (Auto) 1.0 /HPF (0-13.0) 07/09/19 20:47 Few /HPF 11/05/18 20:47 None seen (None Seen) 11/06/18 14:48 2800 ml 11/13/18 11:27 45.0 mg/dL (0.1-20.0) H 11/13/18 11:27 Height (in) 65.0 inches 11/13/18 11:27 Weight (lb) 153.7 lbs 11/13/18 11:27 37 11/13/18 11:27 40 mmol/L 11/06/18 Unknown 68 mg/dL (5-11.8) H 11/06/18 Unknown Clear 11/11/18 Unknown Colorless 11/11/18 Unknown 10 /mm3 (1-10) 11/11/18 Unknown 22 /mm3 (0-0) 11/11/18 Unknown CSF Seg Neutrophils 0 % (0-6) 11/11/18 Unknown 37.8 % (40-80) 11/11/18 Unknown CSF Reactive Lymphs 0 % 11/11/18 Unknown 62.2 % (15-45) 11/11/18 Unknown 0 % 11/11/18 Unknown 0 % 11/11/18 Unknown C 11/11/18 Unknown 77 mg/dL 11/11/18 Unknown 57 mg/dL 11/11/18 Unknown Vancomycin Trough 17.5 ug/mL (5.0-20.0) 11/08/18 21:16 Random Vancomycin 22.4 ug/mL (0-40.0) 11/11/18 05:01 Salicylates < 0.3 mg/dL (2.8-20.0) L 11/05/18 16:31 Acetaminophen < 5.0 ug/mL (10.0-30.0) L 11/05/18 16:31 Plasma/Serum Alcohol < 0.01 % (0-0.07) 11/05/18 16:31 Heparin-induced Plt Ab Negative (Negative) 11/08/18 13:49 UF Heparin High Dose 0 % Release 11/08/18 13:49 KIANNA UFH Low Dose 0.1 0 % Release 11/08/18 13:49 KIANNA UFH Low Dose 0.5 0 % Release 11/08/18 13:49 Active Medications - Current Medications Current Medications: Generic Name Dose Route Start Last Admin Trade Name Freq PRN Reason Stop Dose Admin Acetaminophen 650 mg 11/14/18 10:52 Tylenol PO Q6H PRN Non Cardiac Pain or Temp>100.5 Albuterol 2.5 mg 11/05/18 17:52 11/12/18 20:15 Proventil IH 2.5 mg Q3HRT PRN Administration Shortness Of Breath Lipase/Protease/Amylase 1 each 11/07/18 11:07 Pancredoris Cruz 10,500 Unit FEEDTUBE PRN PRN For Clogged Feeding Tube Carvedilol 6.25 mg 11/09/18 11:00 11/15/18 02:03 Coreg PO Not Given BID [facility] Dextrose 50 ml 11/05/18 17:59 D50w (25gm) Syringe IV PRN PRN Hypoglycemia Famotidine 20 mg 11/11/18 10:00 11/13/18 13:51 Pepcid PO Not Given DAILY [facility] Gabapentin 800 mg 11/08/18 10:00 11/15/18 02:03 Neurontin PO Not Given BID [facility] Hydralazine HCl 10 mg 11/05/18 21:30 11/14/18 03:34 Apresoline IV 10 mg Q6HR PRN Administration Hypertension Hydrophilic Ointment 1 applic 11/05/18 16:21 Vaseline Lip Therapy TP Q2HR PRN Dry Lips Dextrose/Sodium Chloride 1,000 mls @ 50 mls/hr 11/15/18 13:00 D5/0.45ns IV DIRECT [facility] Insulin Human Lispro 0 unit 11/06/18 12:00 11/14/18 06:03 Humalog SUB-Q Not Given Q6HR [facility] Protocol Latanoprost 1 drops 11/08/18 18:00 11/13/18 17:35 Latanoprost 0.005% OU 1 drops QPM NIKKO Administration Miscellaneous Medication 1 drop 11/08/18 22:00 11/14/18 23:30 Brimonidine Tartate OP 1 drop BID NIKKO Administration Morphine Sulfate 1 mg 11/14/18 10:52 11/15/18 09:27 Morphine IV 1 mg Q4H PRN Administration Pain , Severe (7-10) Multi-Ingred Cream/Lotion/Oil/Oint 1 applic 11/05/18 16:21 Artificial Tears Ophth Oint OU Q4HR PRN Dry Eye(s) Pravastatin Sodium 20 mg 11/08/18 10:00 11/13/18 13:51 Pravachol PO Not Given DAILY NIKKO Ropinirole HCl 1 mg 11/08/18 09:00 11/14/18 20:52 Requip PO Not Given TID NIKKO Simple Syrup 15 ml 11/07/18 11:07 Simple Syrup FEEDTUBE PRN PRN Hypoglycemia Simple Syrup 30 ml 11/07/18 11:07 Simple Syrup FEEDTUBE PRN PRN Hypoglycemia Sodium Bicarbonate 325 mg 11/07/18 11:07 Sodium Bicarbonate FEEDTUBE PRN PRN For Clogged Feeding Tube Sodium Chloride 10 ml 11/05/18 22:00 11/14/18 21:49 Sodium Chloride Flush Syringe 10 Ml IV 10 ml BID NIKKO Administration Sodium Chloride 10 ml 11/05/18 17:52 Sodium Chloride Flush Syringe 10 Ml IV PRN PRN LINE FLUSH Nutrition/Malnutrition Assess - Dietary Evaluation Nutrition/Malnutrition Findings: Nutrition Notes Start: 11/06/18 16:18 Freq: Status: Active Protocol: Document 11/13/18 15:12 RM (Rec: 11/13/18 15:13 RM [id number]) Nutrition Notes Initial or Follow up Reassessment Current Diagnosis Acute Kidney Injury, Respiratory Failure Other Pertinent Diagnosis Encephalopathy Current Diet Nepro at 30 ml/hr Labs/Tests K 5.1 Pertinent Medications Reviewed Height 5 ft 5 in Weight 69.7 kg [place] Body Weight (kg) 56.81 BMI 25.5 Subjective/Other Information Procedure being done at time of visit. Per nurse pt is being extubated and is planned for swallow evaluation tomorrow. Pt is NPO for now. Burn Absent Trauma Absent #1 Nutrition Diagnosis Inadequate oral intake Diagnosis Progress(for reassessment Continues documentation) Is patient on ventilator? No Is Patient Ambulatory and/or Out of Bed No REE-([place] Jeor-confined to bed) 1390.584 Calculation Used for Recommendations [place] Additional Notes Protein Needs: 84-139g (1.2-2g /kg) Fluid Needs: 1 ml/kcal Nutrition Intervention Change Diet Order: Per ST Nutrition Support: Resume Nepro at 30ml/hr Flush with 130ml q4h if swallow eval failed Kcal 1,296 Protein (gm) 58 Fluid (mL) 539 Goal #1 Diet advancement Anticipated Discharge Needs: Unable to determine at this time Follow-Up By: 11/15/18 Additional Comments Follow for diet advancement
--- NOTE | 2018-11-15 16:29 | XRay Report ---
ABDOMEN 1 VIEW(S) INDICATION / CLINICAL INFORMATION: dobhobb placement. COMPARISON: 11/14/2018 FINDINGS: TUBES / LINES: The feeding tube has been repositioned and now terminates in the antrum of the stomach near the pylorus. BOWEL GAS PATTERN: No significant abnormality. FREE AIR / EXTRALUMINAL GAS: None seen. ADDITIONAL FINDINGS: Calcifications in the right upper quadrant likely represent gallstones. IMPRESSION: Feeding tube terminates in the distal stomach. Signer Name: Michael Rodgers Jr, MD Signed: 11/15/2018 4:25 PM Workstation Name: [id number]
[2018-11-15] MEDS: PRAVACHOL PO SCH (17:38)
--- NOTE | 2018-11-15 18:09 | Progress Note ---
Assessment and Plan Cultures: 11/05/2018 blood culture: 2/4 bottles (both sets) with Staph hominis 11/05/2018 urine culture: skin jama 11/05/2018 resp culture: oropharyngeal contamination. 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 Resolved. Chest x-ray without evidence of pneumonia. UA with minimal pyuria, doubt UTI. Also with Staph hominis bacteremia. 2) Lactic acidosis: Lactate improved. CT abdomen and pelvis without contrast showed no acute endings. 3) Acute encephalopathy: Neurology following. ?related to seizures. MRI negative for acute process. CSF no evidence of meningitis. 4) BRAD v/s CKD: Renally dose antibiotics, worsening. 5) Staph hominis bacteremia: 2/4 bottles (both sets) with GPC in clusters. TTE unremarkable for valvular vegetations. Continue Vancomycin for 7 days. Repeat blood cultures negative. 6) MSSA in resp cultures: CXR without pneumonia. Recent CXRs more suggestive of atelectasis and possible b/l effusions. Most recent CXR shows increased pleuro- parenchyma density in the LLL. CT chest no pneumonia or effusion +atelectasis. 7) Acute respiratory failure: on BIPAP 8) Pancytopenia: better Recs: monitor off antibiotics I will sign off Gema Stewart MD Infectious Diseases Therapeutic Re[employer] Assistant [facility] M [phone] O [phone] Subjective Date of service: 11/15/18 Principal diagnosis: Ac hypoxemic Resp Failure ; Possible Seizure; Ac. Met Encephalopathy; BRAD Interval history: Patient is communicating on HFO2, no fever for 4 days ROS unable to obtain Objective - Exam Narrative Exam: General: alert in NAD onHFO2 Head, Ears, Nose: Normocephalic, atraumatic. External ears, nose normal Eyes: Conjunctivae/corneas clear. No icterus. No ptosis. Neck: Supple, intubated Oral: +OGT Cardiovascular: S1, S2 normal. Respiratory: coarse bs angelika GI: Soft, non-tender; bowel sounds normal. No peritoneal signs Musculoskeletal: No pedal edema, no cyanosis. Skin: No rash or abscess Hem/Lymphatic: No palpable cervical or supraclavicular nodes. No lymphangitis Psych: calm, no agitation Neurological alert moving all extr EJ - Constitutional Vitals: Vital Signs Temp Pulse Resp BP Pulse Ox 98.6 F 89 15 143/75 98 11/15/18 09:35 11/15/18 17:36 11/15/18 15:00 11/15/18 17:36 11/15/18 15:00 Temperature -Last 24 Hours Temperature 98.6 F Temperature 97.8 F Temperature 98.4 F Temperature 97.8 F Temperature 98 F - Labs CBC & Chem 7: 11/15/18 05:30 11/15/18 04:00 Labs: Abnormal lab results 11/15/18 11/15/18 Range/Units 04:00 05:30 RBC 3.19 L (3.65-5.03) M/mm3 Hgb 9.4 L (10.1-14.3) gm/dl Hct 29.3 L (30.3-42.9) % Sodium 150 H (137-145) mmol/L Chloride 118.9 H (98-107) mmol/L Carbon Dioxide 18 L (22-30) mmol/L BUN 45 H (7-17) mg/dL Creatinine 2.3 H (0.7-1.2) mg/dL
[2018-11-15] MEDS: LATANOPROST 0.005% OU SCH (18:30)
[2018-11-15] MEDS: D5/0.45NS 1,000 ML IV SCH (19:00)
--- NOTE | 2018-11-16 07:09 | Progress Note ---
Assessment and Plan Acute Respiratory Failure with Hypoxia Gram positive bacteremia (in clusters)Staph Hominis Possible Seizure Lactic Acidosis, resolved Acute metabolic encephalopathy Hypernatermia Acute Metabolic Encephalopathy BRAD possible secondary to Ischemic ATN Thrombocytopenia, resolving Cardiomyopathy EF 40% -continue high flow oxygen wean supplemental oxygen for O2 sats >90% - continue bronchodilators with pulmonary hygiene per RT - continue enteric nutrition as tolerated, place small bowel feeding tube. -Discussed with RECYCLABLE MATERIALS COLLECTOR again -ABG and CXR as indicated - continue accuchecks with glycemic control per SSI for target blood glucose <180mg/dL - Prevention of delirium, maintenance of sleep-wake cycle - Azotemia per nephrology; continue gentle hydration- change IVF to D5 1/4Nsaline in view of hypernatremia. Once feeding tube is placed, start free water flushes - Avoid nephrotoxic agents, adjust all antibiotics and medications for CrCL and GFR - continue other care per attending / other consultants -Cardioprotective measures -Discharge planning CONDITION:FAIR PROGNOSIS: FAIR CODE STATUS: FULL CODE Updated her son at the bedside Subjective Date of service: 11/16/18 Principal diagnosis: Ac hypoxemic Resp Failure ; Possible Seizure; Ac. Met Encephalopathy; BRAD Interval history: Patient is seen today for: Acute Respiratory Failure with Hypoxemia; Gram positive bacteremia (in clusters); Possible Seizure; Lactic Acidosis; Hypernatermia; Acute Metabolic Encephalopathy; BRAD possible secondary to Ischemic ATN Seen and examined at bedside; 24hour events reviewed; nursing and respiratory care staff consulted; no adverse overnight events reported to me; resting peacefully in bed; awake and alert, No emesis or overt aspiration; no reported seizures; failed swallow evaluation, needs feeding tube. High flow oxygen at 40L and 40%, nocturnal BIPAP Vitals, labs, medications, chart reviewed. Discussed with RN and RT. Son at the bedside Objective Vital Signs - 12hr 11/15/18 11/15/18 11/15/18 20:00 21:00 21:47 Temperature 99.2 F Pulse Rate 81 108 H 95 H Pulse Rate [ 86 From Monitor] Respiratory 17 15 Rate Blood Pressure 146/61 152/91 152/91 O2 Sat by Pulse 99 96 Oximetry 11/15/18 11/15/18 11/15/18 22:00 23:00 23:37 Temperature 98.7 F Pulse Rate 102 H 73 Pulse Rate [ From Monitor] Respiratory 19 13 Rate Blood Pressure 161/77 125/40 O2 Sat by Pulse 98 98 Oximetry 11/16/18 11/16/18 11/16/18 00:00 00:09 00:37 Temperature Pulse Rate 71 69 88 Pulse Rate [ 69 From Monitor] Respiratory 13 11 L 20 Rate Blood Pressure 130/50 130/50 130/50 O2 Sat by Pulse 100 100 97 Oximetry 11/16/18 11/16/18 11/16/18 01:00 01:20 02:00 Temperature 98.0 F Pulse Rate 70 73 Pulse Rate [ From Monitor] Respiratory 13 15 Rate Blood Pressure 147/60 148/59 O2 Sat by Pulse 98 97 Oximetry 11/16/18 11/16/18 11/16/18 03:00 03:26 04:00 Temperature 98.4 F Pulse Rate 71 74 Pulse Rate [ 72 From Monitor] Respiratory 14 13 Rate Blood Pressure 140/52 160/58 O2 Sat by Pulse 98 96 Oximetry 11/16/18 05:00 Temperature Pulse Rate 79 Pulse Rate [ From Monitor] Respiratory 22 Rate Blood Pressure 161/65 O2 Sat by Pulse 99 Oximetry Constitutional: no acute distress, appears uncomfortable, other Eyes: non-icteric ENT: oropharynx dry Neck: supple, no lymphadenopathy, no JVD, other (no thyromegaly) Effort: mildly labored Ascultation: Bilateral: diminished breath sounds, rhonchi (bases) Percussion: Bilateral: not dull Cardiovascular: regular rate and rhythm, murmur noted (systolic), other Gastrointestinal: normoactive bowel sounds, soft, non-tender, non-distended Integumentary: normal Extremities: no cyanosis, no edema, pink and warm, pulses normal, no ischemia or petechiae Neurologic: non-focal exam (moves all extremities, obeys onse step commands), pupils equal and round Psychiatric: mood appropriate, affect normal CBC and BMP: 11/15/18 05:30 11/17/18 12:22 ABG, PT/INR, D-dimer: ABG POC ABG pH 7.415 (7.35-7.45) 11/12/18 04:44 POC ABG pCO2 34.0 (35-45) L 11/12/18 04:44 POC ABG pO2 138 (80-105) H 11/12/18 04:44 POC ABG HCO3 21.8 (22-26 mml/L) 11/12/18 04:44 POC ABG Total CO2 23 (23-27mmol/L) 11/12/18 04:44 POC ABG O2 Sat 99 11/12/18 04:44 PT/INR, D-dimer PT 15.2 Sec. (12.2-14.9) H 11/11/18 10:03 INR 1.23 (0.87-1.13) H 11/11/18 10:03 Abnormal lab findings: Abnormal Labs 11/05/18 11/05/18 11/05/18 16:31 16:31 16:31 WBC RBC Hgb Hct Plt Count 139 L Brown % (Auto) Lymph # 0.7 L Seg Neutrophils % 78.8 H PT INR POC ABG pH POC ABG pCO2 POC ABG pO2 Sodium 148 H Potassium 3.2 L Chloride 110.6 H Carbon Dioxide 17 L BUN 18 H Creatinine 1.9 H Glucose 205 H POC Glucose Lactic Acid 8.20 H* Calcium 10.9 H Phosphorus Total Creatine Kinase C-Reactive Protein Total Protein Albumin 3.6 L Urine WBC (Auto) Urine Creatinine Urine Total Protein Salicylates Acetaminophen 11/05/18 11/05/18 11/05/18 16:31 16:31 16:31 WBC RBC Hgb Hct Plt Count Brown % (Auto) Lymph # Seg Neutrophils % PT INR POC ABG pH POC ABG pCO2 POC ABG pO2 Sodium Potassium Chloride Carbon Dioxide BUN Creatinine Glucose POC Glucose Lactic Acid Calcium Phosphorus Total Creatine Kinase < 7 L C-Reactive Protein Total Protein Albumin Urine WBC (Auto) Urine Creatinine Urine Total Protein Salicylates < 0.3 L Acetaminophen < 5.0 L 11/05/18 11/05/18 11/05/18 17:29 17:42 20:47 WBC RBC Hgb Hct Plt Count Brown % (Auto) Lymph # Seg Neutrophils % PT INR POC ABG pH POC ABG pCO2 33.4 L POC ABG pO2 136 H Sodium Potassium Chloride Carbon Dioxide BUN Creatinine Glucose POC Glucose Lactic Acid 3.30 H* Calcium Phosphorus Total Creatine Kinase C-Reactive Protein Total Protein Albumin Urine WBC (Auto) 19.0 H Urine Creatinine Urine Total Protein Salicylates Acetaminophen 11/05/18 11/05/18 11/06/18 20:47 22:42 04:09 WBC 4.4 L RBC Hgb Hct Plt Count 102 L Brown % (Auto) 13.2 H Lymph # 1.0 L Seg Neutrophils % PT INR POC ABG pH POC ABG pCO2 POC ABG pO2 Sodium Potassium Chloride Carbon Dioxide BUN Creatinine Glucose POC Glucose 121 H Lactic Acid Calcium Phosphorus Total Creatine Kinase C-Reactive Protein Total Protein Albumin Urine WBC (Auto) Urine Creatinine 166.9 H Urine Total Protein Salicylates Acetaminophen 11/06/18 11/06/18 11/06/18 04:09 05:05 07:31 WBC RBC Hgb Hct Plt Count Brown % (Auto) Lymph # Seg Neutrophils % PT INR POC ABG pH 7.509 H POC ABG pCO2 < 30 L POC ABG pO2 115 H Sodium 150 H Potassium 2.7 L* Chloride 118.2 H Carbon Dioxide 21 L BUN 21 H Creatinine 1.6 H Glucose 125 H POC Glucose Lactic Acid 2.50 H* Calcium Phosphorus Total Creatine Kinase C-Reactive Protein Total Protein 5.7 L Albumin 3.1 L Urine WBC (Auto) Urine Creatinine Urine Total Protein Salicylates Acetaminophen 11/06/18 11/06/18 11/06/18 12:04 16:21 18:04 WBC RBC Hgb Hct Plt Count Brown % (Auto) Lymph # Seg Neutrophils % PT INR POC ABG pH POC ABG pCO2 POC ABG pO2 Sodium Potassium 5.4 H D Chloride Carbon Dioxide BUN Creatinine Glucose POC Glucose 122 H 110 H Lactic Acid Calcium Phosphorus Total Creatine Kinase C-Reactive Protein Total Protein Albumin Urine WBC (Auto) Urine Creatinine Urine Total Protein Salicylates Acetaminophen 11/06/18 11/06/18 11/07/18 21:28 Unknown 04:02 WBC RBC Hgb Hct Plt Count Brown % (Auto) Lymph # Seg Neutrophils % PT INR POC ABG pH POC ABG pCO2 POC ABG pO2 Sodium 152 H Potassium Chloride 123.4 H Carbon Dioxide 20 L BUN 23 H Creatinine 1.5 H Glucose 111 H POC Glucose 125 H Lactic Acid Calcium Phosphorus 1.00 L Total Creatine Kinase C-Reactive Protein Total Protein Albumin Urine WBC (Auto) Urine Creatinine 155.8 H Urine Total Protein 68 H Salicylates Acetaminophen 11/07/18 11/07/18 11/07/18 09:07 11:05 15:48 WBC 4.1 L RBC 3.62 L Hgb Hct Plt Count 77 L Brown % (Auto) Lymph # Seg Neutrophils % PT INR POC ABG pH 7.314 L POC ABG pCO2 POC ABG pO2 Sodium Potassium Chloride Carbon Dioxide BUN Creatinine Glucose POC Glucose Lactic Acid Calcium Phosphorus Total Creatine Kinase C-Reactive Protein 3.50 H Total Protein Albumin Urine WBC (Auto) Urine Creatinine Urine Total Protein Salicylates Acetaminophen 11/08/18 11/08/18 11/08/18 04:27 05:29 12:27 WBC RBC Hgb Hct Plt Count Brown % (Auto) Lymph # Seg Neutrophils % PT INR POC ABG pH POC ABG pCO2 33.4 L POC ABG pO2 78 L Sodium 146 H Potassium Chloride 117.1 H Carbon Dioxide 18 L BUN 19 H Creatinine 1.6 H Glucose 111 H POC Glucose 108 H Lactic Acid Calcium Phosphorus Total Creatine Kinase C-Reactive Protein Total Protein Albumin Urine WBC (Auto) Urine Creatinine Urine Total Protein Salicylates Acetaminophen 11/08/18 11/08/18 11/08/18 12:27 18:11 23:50 WBC RBC Hgb Hct Plt Count Brown % (Auto) Lymph # Seg Neutrophils % PT INR POC ABG pH POC ABG pCO2 POC ABG pO2 Sodium Potassium Chloride Carbon Dioxide BUN Creatinine Glucose POC Glucose 188 H 126 H 149 H Lactic Acid Calcium Phosphorus Total Creatine Kinase C-Reactive Protein Total Protein Albumin Urine WBC (Auto) Urine Creatinine Urine Total Protein Salicylates Acetaminophen 11/09/18 11/09/18 11/09/18 03:32 04:12 04:12 WBC 3.6 L RBC 2.99 L Hgb 8.8 L Hct 26.9 L Plt Count 81 L Brown % (Auto) Lymph # Seg Neutrophils % PT INR POC ABG pH 7.329 L POC ABG pCO2 POC ABG pO2 Sodium Potassium Chloride 114.8 H Carbon Dioxide 20 L BUN 28 H Creatinine 1.9 H Glucose 144 H POC Glucose Lactic Acid Calcium 8.2 L Phosphorus Total Creatine Kinase C-Reactive Protein Total Protein Albumin Urine WBC (Auto) Urine Creatinine Urine Total Protein Salicylates Acetaminophen 11/09/18 11/09/18 11/09/18 05:24 12:59 17:59 WBC RBC Hgb Hct Plt Count Brown % (Auto) Lymph # Seg Neutrophils % PT INR POC ABG pH POC ABG pCO2 POC ABG pO2 Sodium Potassium Chloride Carbon Dioxide BUN Creatinine Glucose POC Glucose 163 H 175 H 116 H Lactic Acid Calcium Phosphorus Total Creatine Kinase C-Reactive Protein Total Protein Albumin Urine WBC (Auto) Urine Creatinine Urine Total Protein Salicylates Acetaminophen 11/10/18 11/10/18 11/10/18 00:45 03:57 06:45 WBC RBC Hgb Hct Plt Count Brown % (Auto) Lymph # Seg Neutrophils % PT INR POC ABG pH 7.332 L POC ABG pCO2 POC ABG pO2 Sodium Potassium Chloride Carbon Dioxide BUN Creatinine Glucose POC Glucose 201 H 148 H Lactic Acid Calcium Phosphorus Total Creatine Kinase C-Reactive Protein Total Protein Albumin Urine WBC (Auto) Urine Creatinine Urine Total Protein Salicylates Acetaminophen 11/10/18 11/10/18 11/10/18 09:52 09:52 12:36 WBC RBC 3.48 L Hgb Hct Plt Count 103 L Brown % (Auto) 14.8 H Lymph # 0.6 L Seg Neutrophils % PT INR POC ABG pH POC ABG pCO2 POC ABG pO2 Sodium Potassium Chloride 109.3 H Carbon Dioxide 21 L BUN 36 H Creatinine 2.1 H Glucose 134 H POC Glucose 142 H Lactic Acid Calcium Phosphorus Total Creatine Kinase C-Reactive Protein Total Protein Albumin Urine WBC (Auto) Urine Creatinine Urine Total Protein Salicylates Acetaminophen 11/10/18 11/10/18 11/11/18 17:31 23:34 05:01 WBC 4.1 L RBC 3.11 L Hgb 9.1 L Hct 27.7 L Plt Count 97 L Brown % (Auto) Lymph # Seg Neutrophils % PT INR POC ABG pH POC ABG pCO2 POC ABG pO2 Sodium Potassium Chloride Carbon Dioxide BUN Creatinine Glucose POC Glucose 152 H 163 H Lactic Acid Calcium Phosphorus Total Creatine Kinase C-Reactive Protein Total Protein Albumin Urine WBC (Auto) Urine Creatinine Urine Total Protein Salicylates Acetaminophen 11/11/18 11/11/18 11/11/18 05:01 05:34 10:03 WBC RBC Hgb Hct Plt Count Brown % (Auto) Lymph # Seg Neutrophils % PT 15.2 H INR 1.23 H POC ABG pH POC ABG pCO2 POC ABG pO2 Sodium Potassium 5.3 H Chloride 108.2 H Carbon Dioxide 21 L BUN 39 H Creatinine 2.2 H Glucose 155 H POC Glucose 159 H Lactic Acid Calcium Phosphorus Total Creatine Kinase C-Reactive Protein Total Protein Albumin Urine WBC (Auto) Urine Creatinine Urine Total Protein Salicylates Acetaminophen 11/11/18 11/11/18 11/11/18 12:36 17:00 17:25 WBC RBC Hgb Hct Plt Count Brown % (Auto) Lymph # Seg Neutrophils % PT INR POC ABG pH POC ABG pCO2 POC ABG pO2 121 H Sodium Potassium Chloride Carbon Dioxide BUN Creatinine Glucose POC Glucose 147 H 116 H Lactic Acid Calcium Phosphorus Total Creatine Kinase C-Reactive Protein Total Protein Albumin Urine WBC (Auto) Urine Creatinine Urine Total Protein Salicylates Acetaminophen 11/11/18 11/11/18 11/12/18 20:33 23:46 04:28 WBC RBC 3.26 L Hgb 9.6 L Hct 29.2 L Plt Count 126 L Brown % (Auto) Lymph # Seg Neutrophils % PT INR POC ABG pH 7.247 L POC ABG pCO2 53.6 H POC ABG pO2 Sodium Potassium Chloride Carbon Dioxide BUN Creatinine Glucose POC Glucose 130 H Lactic Acid Calcium Phosphorus Total Creatine Kinase C-Reactive Protein Total Protein Albumin Urine WBC (Auto) Urine Creatinine Urine Total Protein Salicylates Acetaminophen 11/12/18 11/12/18 11/13/18 04:28 04:44 04:49 WBC RBC 2.89 L Hgb 8.6 L Hct 25.7 L Plt Count 133 L Brown % (Auto) Lymph # Seg Neutrophils % PT INR POC ABG pH POC ABG pCO2 34.0 L POC ABG pO2 138 H Sodium Potassium 5.2 H Chloride 109.9 H Carbon Dioxide 20 L BUN 40 H Creatinine 2.2 H Glucose 112 H POC Glucose Lactic Acid Calcium Phosphorus Total Creatine Kinase C-Reactive Protein Total Protein 5.9 L Albumin 2.5 L Urine WBC (Auto) Urine Creatinine Urine Total Protein Salicylates Acetaminophen 11/13/18 11/13/18 11/14/18 04:49 11:27 04:19 WBC RBC 3.32 L Hgb 9.7 L Hct 29.8 L Plt Count Brown % (Auto) Lymph # Seg Neutrophils % PT INR POC ABG pH POC ABG pCO2 POC ABG pO2 Sodium Potassium 5.1 H Chloride 113.7 H Carbon Dioxide 21 L BUN 44 H Creatinine 2.3 H Glucose POC Glucose Lactic Acid Calcium Phosphorus Total Creatine Kinase C-Reactive Protein Total Protein Albumin Urine WBC (Auto) Urine Creatinine 45.0 H Urine Total Protein Salicylates Acetaminophen 11/14/18 11/14/18 11/15/18 04:19 17:45 04:00 WBC RBC Hgb Hct Plt Count Brown % (Auto) Lymph # Seg Neutrophils % PT INR POC ABG pH POC ABG pCO2 POC ABG pO2 Sodium 147 H 150 H Potassium Chloride 114.8 H 118.9 H Carbon Dioxide 18 L 18 L BUN 44 H 45 H Creatinine 2.2 H 2.3 H Glucose POC Glucose 68 L Lactic Acid Calcium Phosphorus Total Creatine Kinase C-Reactive Protein Total Protein Albumin Urine WBC (Auto) Urine Creatinine Urine Total Protein Salicylates Acetaminophen 11/15/18 11/16/18 11/16/18 05:30 00:03 01:19 WBC RBC 3.19 L Hgb 9.4 L Hct 29.3 L Plt Count Brown % (Auto) Lymph # Seg Neutrophils % PT INR POC ABG pH POC ABG pCO2 POC ABG pO2 Sodium Potassium Chloride Carbon Dioxide BUN Creatinine Glucose POC Glucose 122 H 115 H Lactic Acid Calcium Phosphorus Total Creatine Kinase C-Reactive Protein Total Protein Albumin Urine WBC (Auto) Urine Creatinine Urine Total Protein Salicylates Acetaminophen 11/16/18 05:07 WBC RBC Hgb Hct Plt Count Brown % (Auto) Lymph # Seg Neutrophils % PT INR POC ABG pH POC ABG pCO2 POC ABG pO2 Sodium Potassium Chloride Carbon Dioxide BUN Creatinine Glucose POC Glucose 110 H Lactic Acid Calcium Phosphorus Total Creatine Kinase C-Reactive Protein Total Protein Albumin Urine WBC (Auto) Urine Creatinine Urine Total Protein Salicylates Acetaminophen Allied health notes reviewed: nursing
[2018-11-16] MEDS ORDERED: PANCREAZE DR 10,500 UNIT FEEDTUBE PRN (07:34)
[2018-11-16] MEDS ORDERED: SIMPLE SYRUP FEEDTUBE PRN ×2 (07:34)
[2018-11-16] MEDS ORDERED: SODIUM BICARBONATE FEEDTUBE PRN (07:34)
[2018-11-16] MEDS: HumaLOG SUB-Q SCH ×4 (08:01→18:05)
[2018-11-16] MEDS: COREG PO SCH ×2 (09:11→21:13)
[2018-11-16] MEDS: REQUIP PO SCH ×4 (09:11→20:10)
[2018-11-16] MEDS: PEPCID PO SCH (09:12)
[2018-11-16] MEDS: NEURONTIN PO SCH ×2 (09:12→21:15)
[2018-11-16] MEDS: PRAVACHOL PO SCH (09:12)
[2018-11-16] MEDS: BRIMONIDINE OP SCH ×2 (09:15→21:33)
[2018-11-16] MEDS: SODIUM CHLORIDE FLUSH SYRINGE 10 ML IV SCH ×2 (09:16→21:17)
--- NOTE | 2018-11-16 11:00 | Progress Note ---
Assessment and Plan Acute Renal Failure likely secondary to ischemic ATN, no obstruction: S/p Hypokalemia: S/P Hypernatremia: Hyperkalemia: -stable kidney function, good UOP -On D5 1/2 NS at 50 mls/hr for hypernatremia -Renal ultrasound-negative -Monitor I/O's -Avoid nephrotoxic agents -Obtain daily weights -Continue to monitor renal function closely SIRS versus sepsis: -ID onboard Acute encephalopathy: Possible Seizures -Neurology onboard Acute Hypoxic Respiratory Failure: -On Oxygen via NC as per Pulmonary Subjective Date of service: 11/16/18 Principal diagnosis: Ac hypoxemic Resp Failure ; Possible Seizure; Ac. Met Encephalopathy; BRAD Interval history: Making urine. Objective - Exam Narrative Exam: General appearance: well-developed EENT: ATNC, PERRL, mucous membranes dry Neck: no JVD, no carotid bruit Respiratory: Present: Decreased Breath Sounds Gastrointestinal: normoactive bowel sounds, no tenderness, no distended Integumentary: no rash, warm and dry Neurologic: other (follows simple commands) Musculoskeletal: other (trace pitting edema in BUE) Psychiatric: other - Vital Signs Vital signs: Vital Signs - 12hr 11/15/18 11/16/18 11/16/18 23:37 00:00 00:09 Temperature 98.7 F Pulse Rate 71 69 Pulse Rate [ 69 From Monitor] Respiratory 13 11 L Rate Blood Pressure 130/50 130/50 O2 Sat by Pulse 100 100 Oximetry 11/16/18 11/16/18 11/16/18 00:37 01:00 01:20 Temperature 98.0 F Pulse Rate 88 70 Pulse Rate [ From Monitor] Respiratory 20 13 Rate Blood Pressure 130/50 147/60 O2 Sat by Pulse 97 98 Oximetry 11/16/18 11/16/18 11/16/18 02:00 03:00 03:26 Temperature 98.4 F Pulse Rate 73 71 Pulse Rate [ From Monitor] Respiratory 15 14 Rate Blood Pressure 148/59 140/52 O2 Sat by Pulse 97 98 Oximetry 11/16/18 11/16/18 11/16/18 04:00 05:00 06:01 Temperature Pulse Rate 74 79 90 Pulse Rate [ 72 From Monitor] Respiratory 13 22 19 Rate Blood Pressure 160/58 161/65 180/80 O2 Sat by Pulse 96 99 98 Oximetry 11/16/18 11/16/1811/16/19 07:01 08:00 09:00 Temperature 98.3 F Pulse Rate 102 H 81 81 Pulse Rate [ 90 From Monitor] Respiratory 18 14 18 Rate Blood Pressure 182/85 168/68 183/69 O2 Sat by Pulse 97 97 99 Oximetry 11/16/18 11/16/18 09:11 10:01 Temperature Pulse Rate 82 74 Pulse Rate [ From Monitor] Respiratory 20 Rate Blood Pressure 183/69 155/60 O2 Sat by Pulse 85 Oximetry - Lab 11/15/18 05:30 11/16/18 11:07 Most recent lab results Calcium 10.0 mg/dL (8.4-10.2) 11/15/18 04:00 Phosphorus 3.00 mg/dL (2.5-4.5) D 11/08/18 04:27 Magnesium 2.20 mg/dL (1.7-2.3) 11/05/18 16:31 45.0 mg/dL (0.1-20.0) H 11/13/18 11:27 40 mmol/L 11/06/18 Unknown 68 mg/dL (5-11.8) H 11/06/18 Unknown Medications & Allergies - Medications Allergies/Adverse Reactions: Allergies aspirin Allergy (Verified 11/06/18 17:06) Unknown Home Medications: Home Medications Medication Instructions Recorded Confirmed Last Taken Type Carvedilol [Coreg] 25 mg PO BID 11/06/18 11/06/18 Unknown History Furosemide [Lasix TAB] 20 mg PO HS 11/06/18 11/06/18 Unknown History Furosemide [Lasix TAB] 40 mg PO QAM 11/06/18 11/06/18 Unknown History Gabapentin [Neurontin] 800 mg PO BID 11/06/18 11/06/18 Unknown History Pravastatin Sodium [Pravastatin] 20 mg PO DAILY 11/06/18 11/06/18 Unknown History Ropinirole HCl [Requip] 1 mg PO TID 11/06/18 11/06/18 Unknown History Brimonidine Tartrate [Brimonidine 1 drop OU BID 11/08/18 11/08/18 Unknown History Tartrate 0.2%] Active Medications: Generic Name Dose Route Start Last Admin Trade Name Freq PRN Reason Stop Dose Admin Acetaminophen 650 mg 11/14/18 10:52 Tylenol PO Q6H PRN Non Cardiac Pain or Temp>100.5 Albuterol 2.5 mg 11/05/18 17:52 11/12/18 20:15 Proventil IH 2.5 mg Q3HRT PRN Administration Shortness Of Breath Lipase/Protease/Amylase 1 each 11/16/18 07:34 Pancredoris Cruz 10,500 Unit FEEDTUBE PRN PRN For Clogged Feeding Tube Carvedilol 6.25 mg 11/09/18 11:00 11/16/18 09:11 Coreg PO 6.25 mg BID NIKKO Administration Dextrose 50 ml 11/05/18 17:59 D50w (25gm) Syringe IV PRN PRN Hypoglycemia Famotidine 20 mg 11/11/18 10:00 11/16/18 09:12 Pepcid PO 20 mg DAILY NIKKO Administration Gabapentin 800 mg 11/08/18 10:00 11/16/18 09:12 Neurontin PO 800 mg BID NIKKO Administration Hydralazine HCl 10 mg 11/05/18 21:30 11/14/18 03:34 Apresoline IV 10 mg Q6HR PRN Administration Hypertension Hydrophilic Ointment 1 applic 11/05/18 16:21 Vaseline Lip Therapy TP Q2HR PRN Dry Lips Dextrose/Sodium Chloride 1,000 mls @ 50 mls/hr 11/15/18 13:00 11/15/18 19:00 D5/0.45ns IV 50 mls/hr DIRECT NIKKO Administration Insulin Human Lispro 0 unit 11/06/18 12:00 11/16/18 08:02 Humalog SUB-Q Not Given Q6HR [facility] Protocol Latanoprost 1 drops 11/08/18 18:00 11/15/18 18:30 Latanoprost 0.005% OU 1 drops QPM NIKKO Administration Miscellaneous Medication 1 drop 11/08/18 22:00 11/16/18 09:15 Brimonidine Tartate OP 1 drop BID NIKKO Administration Miscellaneous Medication 1 drop 11/16/18 22:00 Brimonidine Tartrate [Brimonidine Tartrate 0.2%] OP BID NIKKO Morphine Sulfate 1 mg 11/14/18 10:52 11/15/18 09:27 Morphine IV 1 mg Q4H PRN Administration Pain , Severe (7-10) Multi-Ingred Cream/Lotion/Oil/Oint 1 applic 11/05/18 16:21 Artificial Tears Ophth Oint OU Q4HR PRN Dry Eye(s) Pravastatin Sodium 20 mg 11/08/18 10:00 11/16/18 09:12 Pravachol PO 20 mg DAILY NIKKO Administration Ropinirole HCl 1 mg 11/08/18 09:00 11/16/18 09:11 Requip PO 1 mg TID NIKKO Administration Simple Syrup 15 ml 11/16/18 07:34 Simple Syrup FEEDTUBE PRN PRN Hypoglycemia Simple Syrup 30 ml 11/16/18 07:34 Simple Syrup FEEDTUBE PRN PRN Hypoglycemia Sodium Bicarbonate 325 mg 11/16/18 07:34 Sodium Bicarbonate FEEDTUBE PRN PRN For Clogged Feeding Tube Sodium Chloride 10 ml 11/05/18 22:00 11/16/18 09:16 Sodium Chloride Flush Syringe 10 Ml IV 10 ml BID NIKKO Administration Sodium Chloride 10 ml 11/05/18 17:52 Sodium Chloride Flush Syringe 10 Ml IV PRN PRN LINE FLUSH
--- NOTE | 2018-11-16 11:29 | Progress Note ---
Subjective Date of service: 11/16/18 Principal diagnosis: Ac hypoxemic Resp Failure ; Possible Seizure; Ac. Met Encephalopathy; BRAD Interval history: alerty nd talking spoke to family and plan further monitor of swallowing seizre free good recovery being made Objective - Vital Sign Vital Signs - 12hr 11/15/18 11/16/18 11/16/18 23:37 00:00 00:09 Temperature 98.7 F Pulse Rate 71 69 Pulse Rate [ 69 From Monitor] Respiratory 13 11 L Rate Blood Pressure 130/50 130/50 O2 Sat by Pulse 100 100 Oximetry 11/16/18 11/16/18 11/16/18 00:37 01:00 01:20 Temperature 98.0 F Pulse Rate 88 70 Pulse Rate [ From Monitor] Respiratory 20 13 Rate Blood Pressure 130/50 147/60 O2 Sat by Pulse 97 98 Oximetry 11/16/18 11/16/18 11/16/18 02:00 03:00 03:26 Temperature 98.4 F Pulse Rate 73 71 Pulse Rate [ From Monitor] Respiratory 15 14 Rate Blood Pressure 148/59 140/52 O2 Sat by Pulse 97 98 Oximetry 11/16/18 11/16/18 11/16/18 04:00 05:00 06:01 Temperature Pulse Rate 74 79 90 Pulse Rate [ 72 From Monitor] Respiratory 13 22 19 Rate Blood Pressure 160/58 161/65 180/80 O2 Sat by Pulse 96 99 98 Oximetry 11/16/18 11/16/18 11/16/18 07:01 08:00 09:00 Temperature 98.3 F Pulse Rate 102 H 81 81 Pulse Rate [ 90 From Monitor] Respiratory 18 14 18 Rate Blood Pressure 182/85 168/68 183/69 O2 Sat by Pulse 97 97 99 Oximetry 11/16/18 11/16/18 09:11 10:01 Temperature Pulse Rate 82 74 Pulse Rate [ From Monitor] Respiratory 20 Rate Blood Pressure 183/69 155/60 O2 Sat by Pulse 85 Oximetry - Laboratory Findings CBC and BMP: 11/15/18 05:30 11/15/18 04:00 Abnormal Lab Findings: Abnormal Labs 11/05/18 11/05/18 11/05/18 16:31 16:31 16:31 WBC RBC Hgb Hct Plt Count 139 L [place] % (Auto) Lymph # 0.7 L Seg Neutrophils % 78.8 H PT INR POC ABG pH POC ABG pCO2 POC ABG pO2 Sodium 148 H Potassium 3.2 L Chloride 110.6 H Carbon Dioxide 17 L BUN 18 H Creatinine 1.9 H Glucose 205 H POC Glucose Lactic Acid 8.20 H* Calcium 10.9 H Phosphorus Total Creatine Kinase C-Reactive Protein Total Protein Albumin 3.6 L Urine WBC (Auto) Urine Creatinine Urine Total Protein Salicylates Acetaminophen 11/05/18 11/05/18 11/05/18 16:31 16:31 16:31 WBC RBC Hgb Hct Plt Count [place] % (Auto) Lymph # Seg Neutrophils % PT INR POC ABG pH POC ABG pCO2 POC ABG pO2 Sodium Potassium Chloride Carbon Dioxide BUN Creatinine Glucose POC Glucose Lactic Acid Calcium Phosphorus Total Creatine Kinase < 7 L C-Reactive Protein Total Protein Albumin Urine WBC (Auto) Urine Creatinine Urine Total Protein Salicylates < 0.3 L Acetaminophen < 5.0 L 11/05/18 11/05/18 11/05/18 17:29 17:42 20:47 WBC RBC Hgb Hct Plt Count [place] % (Auto) Lymph # Seg Neutrophils % PT INR POC ABG pH POC ABG pCO2 33.4 L POC ABG pO2 136 H Sodium Potassium Chloride Carbon Dioxide BUN Creatinine Glucose POC Glucose Lactic Acid 3.30 H* Calcium Phosphorus Total Creatine Kinase C-Reactive Protein Total Protein Albumin Urine WBC (Auto) 19.0 H Urine Creatinine Urine Total Protein Salicylates Acetaminophen 11/05/18 11/05/18 11/06/18 20:47 22:42 04:09 WBC 4.4 L RBC Hgb Hct Plt Count 102 L [place] % (Auto) 13.2 H Lymph # 1.0 L Seg Neutrophils % PT INR POC ABG pH POC ABG pCO2 POC ABG pO2 Sodium Potassium Chloride Carbon Dioxide BUN Creatinine Glucose POC Glucose 121 H Lactic Acid Calcium Phosphorus Total Creatine Kinase C-Reactive Protein Total Protein Albumin Urine WBC (Auto) Urine Creatinine 166.9 H Urine Total Protein Salicylates Acetaminophen 11/06/18 11/06/18 11/06/18 04:09 05:05 07:31 WBC RBC Hgb Hct Plt Count [place] % (Auto) Lymph # Seg Neutrophils % PT INR POC ABG pH 7.509 H POC ABG pCO2 < 30 L POC ABG pO2 115 H Sodium 150 H Potassium 2.7 L* Chloride 118.2 H Carbon Dioxide 21 L BUN 21 H Creatinine 1.6 H Glucose 125 H POC Glucose Lactic Acid 2.50 H* Calcium Phosphorus Total Creatine Kinase C-Reactive Protein Total Protein 5.7 L Albumin 3.1 L Urine WBC (Auto) Urine Creatinine Urine Total Protein Salicylates Acetaminophen 11/06/18 11/06/18 11/06/18 12:04 16:21 18:04 WBC RBC Hgb Hct Plt Count [place] % (Auto) Lymph # Seg Neutrophils % PT INR POC ABG pH POC ABG pCO2 POC ABG pO2 Sodium Potassium 5.4 H D Chloride Carbon Dioxide BUN Creatinine Glucose POC Glucose 122 H 110 H Lactic Acid Calcium Phosphorus Total Creatine Kinase C-Reactive Protein Total Protein Albumin Urine WBC (Auto) Urine Creatinine Urine Total Protein Salicylates Acetaminophen 11/06/18 11/06/18 11/07/18 21:28 Unknown 04:02 WBC RBC Hgb Hct Plt Count [place] % (Auto) Lymph # Seg Neutrophils % PT INR POC ABG pH POC ABG pCO2 POC ABG pO2 Sodium 152 H Potassium Chloride 123.4 H Carbon Dioxide 20 L BUN 23 H Creatinine 1.5 H Glucose 111 H POC Glucose 125 H Lactic Acid Calcium Phosphorus 1.00 L Total Creatine Kinase C-Reactive Protein Total Protein Albumin Urine WBC (Auto) Urine Creatinine 155.8 H Urine Total Protein 68 H Salicylates Acetaminophen 11/07/18 11/07/18 11/07/18 09:07 11:05 15:48 WBC 4.1 L RBC 3.62 L Hgb Hct Plt Count 77 L [place] % (Auto) Lymph # Seg Neutrophils % PT INR POC ABG pH 7.314 L POC ABG pCO2 POC ABG pO2 Sodium Potassium Chloride Carbon Dioxide BUN Creatinine Glucose POC Glucose Lactic Acid Calcium Phosphorus Total Creatine Kinase C-Reactive Protein 3.50 H Total Protein Albumin Urine WBC (Auto) Urine Creatinine Urine Total Protein Salicylates Acetaminophen 11/08/18 11/08/18 11/08/18 04:27 05:29 12:27 WBC RBC Hgb Hct Plt Count [place] % (Auto) Lymph # Seg Neutrophils % PT INR POC ABG pH POC ABG pCO2 33.4 L POC ABG pO2 78 L Sodium 146 H Potassium Chloride 117.1 H Carbon Dioxide 18 L BUN 19 H Creatinine 1.6 H Glucose 111 H POC Glucose 108 H Lactic Acid Calcium Phosphorus Total Creatine Kinase C-Reactive Protein Total Protein Albumin Urine WBC (Auto) Urine Creatinine Urine Total Protein Salicylates Acetaminophen 11/08/18 11/08/18 11/08/18 12:27 18:11 23:50 WBC RBC Hgb Hct Plt Count [place] % (Auto) Lymph # Seg Neutrophils % PT INR POC ABG pH POC ABG pCO2 POC ABG pO2 Sodium Potassium Chloride Carbon Dioxide BUN Creatinine Glucose POC Glucose 188 H 126 H 149 H Lactic Acid Calcium Phosphorus Total Creatine Kinase C-Reactive Protein Total Protein Albumin Urine WBC (Auto) Urine Creatinine Urine Total Protein Salicylates Acetaminophen 11/09/18 11/09/18 11/09/18 03:32 04:12 04:12 WBC 3.6 L RBC 2.99 L Hgb 8.8 L Hct 26.9 L Plt Count 81 L [place] % (Auto) Lymph # Seg Neutrophils % PT INR POC ABG pH 7.329 L POC ABG pCO2 POC ABG pO2 Sodium Potassium Chloride 114.8 H Carbon Dioxide 20 L BUN 28 H Creatinine 1.9 H Glucose 144 H POC Glucose Lactic Acid Calcium 8.2 L Phosphorus Total Creatine Kinase C-Reactive Protein Total Protein Albumin Urine WBC (Auto) Urine Creatinine Urine Total Protein Salicylates Acetaminophen 11/09/18 11/09/18 11/09/18 05:24 12:59 17:59 WBC RBC Hgb Hct Plt Count [place] % (Auto) Lymph # Seg Neutrophils % PT INR POC ABG pH POC ABG pCO2 POC ABG pO2 Sodium Potassium Chloride Carbon Dioxide BUN Creatinine Glucose POC Glucose 163 H 175 H 116 H Lactic Acid Calcium Phosphorus Total Creatine Kinase C-Reactive Protein Total Protein Albumin Urine WBC (Auto) Urine Creatinine Urine Total Protein Salicylates Acetaminophen 11/10/18 11/10/18 11/10/18 00:45 03:57 06:45 WBC RBC Hgb Hct Plt Count [place] % (Auto) Lymph # Seg Neutrophils % PT INR POC ABG pH 7.332 L POC ABG pCO2 POC ABG pO2 Sodium Potassium Chloride Carbon Dioxide BUN Creatinine Glucose POC Glucose 201 H 148 H Lactic Acid Calcium Phosphorus Total Creatine Kinase C-Reactive Protein Total Protein Albumin Urine WBC (Auto) Urine Creatinine Urine Total Protein Salicylates Acetaminophen 11/10/18 11/10/18 11/10/18 09:52 09:52 12:36 WBC RBC 3.48 L Hgb Hct Plt Count 103 L [place] % (Auto) 14.8 H Lymph # 0.6 L Seg Neutrophils % PT INR POC ABG pH POC ABG pCO2 POC ABG pO2 Sodium Potassium Chloride 109.3 H Carbon Dioxide 21 L BUN 36 H Creatinine 2.1 H Glucose 134 H POC Glucose 142 H Lactic Acid Calcium Phosphorus Total Creatine Kinase C-Reactive Protein Total Protein Albumin Urine WBC (Auto) Urine Creatinine Urine Total Protein Salicylates Acetaminophen 11/10/18 11/10/18 11/11/18 17:31 23:34 05:01 WBC 4.1 L RBC 3.11 L Hgb 9.1 L Hct 27.7 L Plt Count 97 L [place] % (Auto) Lymph # Seg Neutrophils % PT INR POC ABG pH POC ABG pCO2 POC ABG pO2 Sodium Potassium Chloride Carbon Dioxide BUN Creatinine Glucose POC Glucose 152 H 163 H Lactic Acid Calcium Phosphorus Total Creatine Kinase C-Reactive Protein Total Protein Albumin Urine WBC (Auto) Urine Creatinine Urine Total Protein Salicylates Acetaminophen 11/11/18 11/11/18 11/11/18 05:01 05:34 10:03 WBC RBC Hgb Hct Plt Count [place] % (Auto) Lymph # Seg Neutrophils % PT 15.2 H INR 1.23 H POC ABG pH POC ABG pCO2 POC ABG pO2 Sodium Potassium 5.3 H Chloride 108.2 H Carbon Dioxide 21 L BUN 39 H Creatinine 2.2 H Glucose 155 H POC Glucose 159 H Lactic Acid Calcium Phosphorus Total Creatine Kinase C-Reactive Protein Total Protein Albumin Urine WBC (Auto) Urine Creatinine Urine Total Protein Salicylates Acetaminophen 11/11/18 11/11/18 11/11/18 12:36 17:00 17:25 WBC RBC Hgb Hct Plt Count [place] % (Auto) Lymph # Seg Neutrophils % PT INR POC ABG pH POC ABG pCO2 POC ABG pO2 121 H Sodium Potassium Chloride Carbon Dioxide BUN Creatinine Glucose POC Glucose 147 H 116 H Lactic Acid Calcium Phosphorus Total Creatine Kinase C-Reactive Protein Total Protein Albumin Urine WBC (Auto) Urine Creatinine Urine Total Protein Salicylates Acetaminophen 11/11/18 11/11/18 11/12/18 20:33 23:46 04:28 WBC RBC 3.26 L Hgb 9.6 L Hct 29.2 L Plt Count 126 L [place] % (Auto) Lymph # Seg Neutrophils % PT INR POC ABG pH 7.247 L POC ABG pCO2 53.6 H POC ABG pO2 Sodium Potassium Chloride Carbon Dioxide BUN Creatinine Glucose POC Glucose 130 H Lactic Acid Calcium Phosphorus Total Creatine Kinase C-Reactive Protein Total Protein Albumin Urine WBC (Auto) Urine Creatinine Urine Total Protein Salicylates Acetaminophen 11/12/18 11/12/1811/13/19 04:28 04:44 04:49 WBC RBC 2.89 L Hgb 8.6 L Hct 25.7 L Plt Count 133 L [place] % (Auto) Lymph # Seg Neutrophils % PT INR POC ABG pH POC ABG pCO2 34.0 L POC ABG pO2 138 H Sodium Potassium 5.2 H Chloride 109.9 H Carbon Dioxide 20 L BUN 40 H Creatinine 2.2 H Glucose 112 H POC Glucose Lactic Acid Calcium Phosphorus Total Creatine Kinase C-Reactive Protein Total Protein 5.9 L Albumin 2.5 L Urine WBC (Auto) Urine Creatinine Urine Total Protein Salicylates Acetaminophen 11/13/18 11/13/18 11/14/18 04:49 11:27 04:19 WBC RBC 3.32 L Hgb 9.7 L Hct 29.8 L Plt Count [place] % (Auto) Lymph # Seg Neutrophils % PT INR POC ABG pH POC ABG pCO2 POC ABG pO2 Sodium Potassium 5.1 H Chloride 113.7 H Carbon Dioxide 21 L BUN 44 H Creatinine 2.3 H Glucose POC Glucose Lactic Acid Calcium Phosphorus Total Creatine Kinase C-Reactive Protein Total Protein Albumin Urine WBC (Auto) Urine Creatinine 45.0 H Urine Total Protein Salicylates Acetaminophen 11/14/18 11/14/18 11/15/18 04:19 17:45 04:00 WBC RBC Hgb Hct Plt Count [place] % (Auto) Lymph # Seg Neutrophils % PT INR POC ABG pH POC ABG pCO2 POC ABG pO2 Sodium 147 H 150 H Potassium Chloride 114.8 H 118.9 H Carbon Dioxide 18 L 18 L BUN 44 H 45 H Creatinine 2.2 H 2.3 H Glucose POC Glucose 68 L Lactic Acid Calcium Phosphorus Total Creatine Kinase C-Reactive Protein Total Protein Albumin Urine WBC (Auto) Urine Creatinine Urine Total Protein Salicylates Acetaminophen 11/15/18 11/16/18 11/16/18 05:30 00:03 01:19 WBC RBC 3.19 L Hgb 9.4 L Hct 29.3 L Plt Count [place] % (Auto) Lymph # Seg Neutrophils % PT INR POC ABG pH POC ABG pCO2 POC ABG pO2 Sodium Potassium Chloride Carbon Dioxide BUN Creatinine Glucose POC Glucose 122 H 115 H Lactic Acid Calcium Phosphorus Total Creatine Kinase C-Reactive Protein Total Protein Albumin Urine WBC (Auto) Urine Creatinine Urine Total Protein Salicylates Acetaminophen 11/16/18 05:07 WBC RBC Hgb Hct Plt Count [place] % (Auto) Lymph # Seg Neutrophils % PT INR POC ABG pH POC ABG pCO2 POC ABG pO2 Sodium Potassium Chloride Carbon Dioxide BUN Creatinine Glucose POC Glucose 110 H Lactic Acid Calcium Phosphorus Total Creatine Kinase C-Reactive Protein Total Protein Albumin Urine WBC (Auto) Urine Creatinine Urine Total Protein Salicylates Acetaminophen
[2018-11-16] MEDS: D5/0.45NS 1,000 ML IV SCH (12:08)
[2018-11-16 13:48] LABS: Calcium 9.9 mg/dL (8.4-10.2)
--- NOTE | 2018-11-16 14:07 | Progress Note ---
Assessment and Plan Assessment and plan: Patient is a 82 yo woman (No prior admission for review, first visit in our EMR. Also, her is in Hospice for metastatic cancer per son Lauro) with a history of hypertension, dyslipidemia, OA s/p bilateral TKR and possible CHF who presented to [facility] ED with AMS. Apparently, patient was found unresponsive in the bed and seizing. On EMS arrival patient was noted to have a GCS of 3 and was placed on oxygen mask and intubated in the ED on arrival 11/05/18. Initial Temp was noted as 102.2. In the ED patient was intubated due to AMS and Acute Hypoxemic Respiratory Failure, and is unable to protect her airway, Teleneurology consulted in ED. Pt deemed not a candidate for TPA. Initially pCXR on 11/05/18 showed ETT in good position, no other significant findings, CT abd/pelvis without contrast showed mild bibasilar lung atelectasis as well as mildly distended gallbladder with minimal cholelithiasis. 11/10/18 pCXR showed developing Atelectasis and bilateral pleural effusion. Then pCXR on 11/11/18 showed increasing pleural parenchymal opacity LLL. Patient was eventually extubated on 11/11/18 and placed on bipap 50%. Then on 11/13/18 bipap removed in AM and patient transferred out of the ICU to [facility]. * Renal us: Small left renal cyst, negative for obstruction or mass * MRI Head: negative for acute pathology * Culture: Staph homis in blood * MSSA trach culture * CT chest wo contrast 11/11/18 IMPRESSION: Small pleural effusions, left greater than right. Basilar consolidation is probably secondary to atelectasis and less likely pneumonia. The remainder of the lungs appear clear. * 11/07/18 2D ECHO Conclusions: Mild to moderate concentric LVH, est EF 40-45%, left ventricular diastolic filling pattern is c/w pseudonormalization, RVSF mildly reduced, mild TR, small pericardial effusion, circumferential, no evidence of tamponade Acute hypoxic respiratory failure >96 hours, poa: currently extubated on Sunday11/11/18, off Bipap, on high flow and Pulm is following MSSA Sepsis Left Lobar Pneumonia: treated with Abx, ID following. Staph Hominis Bacteremia: Repeat blood cultures negative, ID following Hyperkalemia: treated with kayexalate and monitor bmp closely, Nephrology is following Acute cystitis: treated with Abx, monitor bmp closely Hypertensive Urgency: Resume Coreg, Hydrazine Status Epilepticus, poa: Neurology is following, treat with prn IV ativan Lactic Acidosis, treat with renal failure Hypernatermia resolved: monitor bmp closely Acute Metabolic Encephalopathy Thrombocytopenia; improving, monitor CBC closely ARF due to suspect ATN, poa: Nephrology following. Dysphagia, failed swallow evaluation: dobhuff and speech therapy ICU deconditioning: order pt/ot [place] removed after 24hr urine collection with a Purex in right EJ removed, midline placed Left arm swollen: venous doppler ordered which was negative for DVT D/C to LTACH once accepted History Interval history: Patient was seen and examined. Follow-up on current diagnosis of AMS and respiratory failure. No overnight events reported to me. Imaging, nursing note, chart, labs and old chart reviewed. Moved to [facility] on 11/13/18 from ICU. son Lauro and Daughter, son in law and granddaughter present. Hospitalist Physical - Physical exam Narrative exam: Gen: ill appearing, mild increase in accessory muscles, off bipap on high flow O2, lethargic HEENT: NCAT, EOMI, PERRL, OP Clear Neck: supple, no adenopathy, no thyromegaly, no JVD CVS/Heart: Regular tachycardia normal S1S2, pulses present bilaterally Chest/Lungs: tachypneic, diminished bs bilatearal, Symmetrical chest expansion, good air entry bilaterally GI/Abdomen: soft, NTND, good bowel sounds, no guarding or rebound /Bladder: no suprapubic tenderness, no CVA or paraspinal tenderness Extermity/Skin: dependent edema, pale skin MSK: doesn't follow commands Neuro: CN 2-12 grossly intact, not following commands Psych: calm - Constitutional Vitals: Temp Pulse Resp BP Pulse Ox 98.1 F 74 14 160/97 98 11/16/18 12:00 11/16/18 12:01 11/16/18 12:01 11/16/18 12:01 11/16/18 14:04 General appearance: Absent: severe distress Results - Labs CBC & Chem 7: 11/15/18 05:30 11/16/18 11:07 Labs: Laboratory Last Values WBC 6.3 K/mm3 (4.5-11.0) 11/15/18 05:30 RBC 3.19 M/mm3 (3.65-5.03) L 11/15/18 05:30 Hgb 9.4 gm/dl (10.1-14.3) L 11/15/18 05:30 Hct 29.3 % (30.3-42.9) L 11/15/18 05:30 MCV 92 fl (79-97) 11/15/18 05:30 MCH 30 pg (28-32) 11/15/18 05:30 MCHC 32 % (30-34) 11/15/18 05:30 RDW 14.6 % (13.2-15.2) 11/15/18 05:30 Plt Count 176 K/mm3 (140-440) 11/15/18 05:30 Lymph % (Auto) 13.4 % (13.4-35.0) 11/10/18 09:52 [place] % (Auto) 14.8 % (0.0-7.3) H 11/10/18 09:52 Eos % (Auto) 1.6 % (0.0-4.3) 11/10/18 09:52 Baso % (Auto) 0.3 % (0.0-1.8) 11/10/18 09:52 Lymph # 0.6 K/mm3 (1.2-5.4) L 11/10/18 09:52 [place] # 0.7 K/mm3 (0.0-0.8) 11/10/18 09:52 Eos # 0.1 K/mm3 (0.0-0.4) 11/10/18 09:52 Baso # 0.0 K/mm3 (0.0-0.1) 11/10/18 09:52 Seg Neutrophils % 69.9 % (40.0-70.0) 11/10/18 09:52 Seg Neutrophils # 3.2 K/mm3 (1.8-7.7) 11/10/18 09:52 PT 15.2 Sec. (12.2-14.9) H 11/11/18 10:03 INR 1.23 (0.87-1.13) H 11/11/18 10:03 APTT 31.8 Sec. (24.2-36.6) 11/11/18 10:03 Heparin Anti-Xa, Unfract Negative (Negative) 11/08/18 13:49 POC ABG pH 7.415 (7.35-7.45) 11/12/18 04:44 POC ABG pCO2 34.0 (35-45) L 11/12/18 04:44 POC ABG pO2 138 (80-105) H 11/12/18 04:44 POC ABG HCO3 21.8 (22-26 mml/L) 11/12/18 04:44 POC ABG Total CO2 23 (23-27mmol/L) 11/12/18 04:44 POC ABG O2 Sat 99 11/12/18 04:44 POC ABG Base Excess -3 ((-2) - (+3)mmol/L) 11/12/18 04:44 30 % 11/12/18 04:44 Sodium 151 mmol/L (137-145) H 11/16/18 11:07 Potassium 4.4 mmol/L (3.6-5.0) 11/16/18 11:07 Chloride 119.5 mmol/L (98-107) H 11/16/18 11:07 Carbon Dioxide 24 mmol/L (22-30) 11/16/18 11:07 12 mmol/L 11/16/18 11:07 BUN 39 mg/dL (7-17) H 11/16/18 11:07 2.2 mg/dL (0.7-1.2) H 11/16/18 11:07 Estimated GFR 21 ml/min 11/16/18 11:07 18 % 11/16/18 11:07 Glucose 123 mg/dL (65-100) H 11/16/18 11:07 POC Glucose 110 (70-105) H 11/16/18 05:07 Lactic Acid 0.70 mmol/L (0.7-2.0) 11/09/18 04:12 Calcium 9.9 mg/dL (8.4-10.2) 11/16/18 11:07 Phosphorus 3.00 mg/dL (2.5-4.5) D 11/08/18 04:27 Magnesium 2.20 mg/dL (1.7-2.3) 11/05/18 16:31 0.40 mg/dL (0.1-1.2) 11/12/18 04:28 AST 27 units/L (5-40) 11/12/18 04:28 ALT 24 units/L (7-56) 11/12/18 04:28 66 units/L (35-129) 11/12/18 04:28 44.0 umol/L (25-60) 11/05/18 17:28 < 7 units/L (30-135) L 11/05/18 16:31 0.019 ng/mL (0.00-0.029) 11/05/18 16:31 3.50 mg/dL (0.00-1.30) H 11/07/18 15:48 5.9 g/dL (6.3-8.2) L 11/12/18 04:28 2.5 g/dL (3.9-5) L 11/12/18 04:28 0.7 % 11/12/18 04:28 See scanned result 11/08/18 13:49 TSH 0.972 mlU/mL (0.270-4.200) 11/05/18 16:31 Yellow (Yellow) 11/05/18 20:47 Slightly-cloudy (Clear) 11/05/18 20:47 5.0 (5.0-7.0) 11/05/18 20:47 Ur Specific [place] 1.016 (1.003-1.030) 11/05/18 20:47 100 mg/dl mg/dL (Negative) 11/05/18 20:47 50 mg/dL (Negative) 11/05/18 20:47 Neg mg/dL (Negative) 11/05/18 20:47 Sm (Negative) 11/05/18 20:47 Pos (Negative) 11/05/18 20:47 Neg (Negative) 11/05/18 20:47 < 2.0 mg/dL (<2.0) 11/05/18 20:47 Ur Leukocyte Esterase Tr (Negative) 11/05/18 20:47 19.0 /HPF (0.0-6.0) H 11/05/18 20:47 4.0 /HPF (0.0-6.0) 11/05/18 20:47 U Epithel Cells (Auto) 1.0 /HPF (0-13.0) 11/05/18 20:47 Few /HPF 11/05/18 20:47 None seen (None Seen) 11/06/18 14:48 2800 ml 11/13/18 11:27 45.0 mg/dL (0.1-20.0) H 11/13/18 11:27 Height (in) 65.0 inches 11/13/18 11:27 Weight (lb) 153.7 lbs 11/13/18 11:27 37 11/13/18 11:27 40 mmol/L 11/06/18 Unknown 68 mg/dL (5-11.8) H 11/06/18 Unknown Clear 11/11/18 Unknown Colorless 11/11/18 Unknown 10 /mm3 (1-10) 11/11/18 Unknown 22 /mm3 (0-0) 11/11/18 Unknown CSF Seg Neutrophils 0 % (0-6) 11/11/18 Unknown 37.8 % (40-80) 11/11/18 Unknown CSF Reactive Lymphs 0 % 11/11/18 Unknown 62.2 % (15-45) 11/11/18 Unknown 0 % 11/11/18 Unknown 0 % 11/11/18 Unknown C 11/11/18 Unknown 77 mg/dL 11/11/18 Unknown 57 mg/dL 11/11/18 Unknown Vancomycin Trough 17.5 ug/mL (5.0-20.0) 11/08/18 21:16 Random Vancomycin 22.4 ug/mL (0-40.0) 11/11/18 05:01 Salicylates < 0.3 mg/dL (2.8-20.0) L 11/05/18 16:31 Acetaminophen < 5.0 ug/mL (10.0-30.0) L 11/05/18 16:31 Plasma/Serum Alcohol < 0.01 % (0-0.07) 11/05/18 16:31 Heparin-induced Plt Ab Negative (Negative) 11/08/18 13:49 UF Heparin High Dose 0 % Release 11/08/18 13:49 KIANNA UFH Low Dose 0.1 0 % Release 11/08/18 13:49 KIANNA UFH Low Dose 0.5 0 % Release 11/08/18 13:49 Active Medications - Current Medications Current Medications: Generic Name Dose Route Start Last Admin Trade Name Freq PRN Reason Stop Dose Admin Acetaminophen 650 mg 11/14/18 10:52 Tylenol PO Q6H PRN Non Cardiac Pain or Temp>100.5 Albuterol 2.5 mg 11/05/18 17:52 11/12/18 20:15 Proventil IH 2.5 mg Q3HRT PRN Administration Shortness Of Breath Lipase/Protease/Amylase 1 each 11/16/18 07:34 Pancreazsarika Cruz 10,500 Unit FEEDTUBE PRN PRN For Clogged Feeding Tube Carvedilol 6.25 mg 11/09/18 11:00 11/16/18 09:11 Coreg PO 6.25 mg BID NIKKO Administration Dextrose 50 ml 11/05/18 17:59 D50w (25gm) Syringe IV PRN PRN Hypoglycemia Famotidine 20 mg 11/11/18 10:00 11/16/18 09:12 Pepcid PO 20 mg DAILY NIKKO Administration Gabapentin 800 mg 11/08/18 10:00 11/16/18 09:12 Neurontin PO 800 mg BID NIKKO Administration Hydralazine HCl 10 mg 11/05/18 21:30 11/14/18 03:34 Apresoline IV 10 mg Q6HR PRN Administration Hypertension Hydrophilic Ointment 1 applic 11/05/18 16:21 Vaseline Lip Therapy TP Q2HR PRN Dry Lips Dextrose/Sodium Chloride 1,000 mls @ 50 mls/hr 11/15/18 13:00 11/16/18 12:08 D5/0.45ns IV 50 mls/hr DIRECT NIKKO Administration Insulin Human Lispro 0 unit 11/06/18 12:00 11/16/18 12:07 Humalog SUB-Q Not Given Q6HR [facility] Protocol Latanoprost 1 drops 11/08/18 18:00 11/15/18 18:30 Latanoprost 0.005% OU 1 drops QPM NIKKO Administration Miscellaneous Medication 1 drop 11/08/18 22:00 11/16/18 09:15 Brimonidine Tartate OP 1 drop BID NIKKO Administration Miscellaneous Medication 1 drop 11/16/18 22:00 Brimonidine Tartrate [Brimonidine Tartrate 0.2%] OP BID [facility] Morphine Sulfate 1 mg 11/14/18 10:52 11/15/18 09:27 Morphine IV 1 mg Q4H PRN Administration Pain , Severe (7-10) Multi-Ingred Cream/Lotion/Oil/Oint 1 applic 11/05/18 16:21 Artificial Tears Ophth Oint OU Q4HR PRN Dry Eye(s) Pravastatin Sodium 20 mg 11/08/18 10:00 11/16/18 09:12 Pravachol PO 20 mg DAILY NIKKO Administration Ropinirole HCl 1 mg 11/08/18 09:00 11/16/18 09:11 Requip PO 1 mg TID NIKKO Administration Simple Syrup 15 ml 11/16/18 07:34 Simple Syrup FEEDTUBE PRN PRN Hypoglycemia Simple Syrup 30 ml 11/16/18 07:34 Simple Syrup FEEDTUBE PRN PRN Hypoglycemia Sodium Bicarbonate 325 mg 11/16/18 07:34 Sodium Bicarbonate FEEDTUBE PRN PRN For Clogged Feeding Tube Sodium Chloride 10 ml 11/05/18 22:00 11/16/18 09:16 Sodium Chloride Flush Syringe 10 Ml IV 10 ml BID NIKKO Administration Sodium Chloride 10 ml 11/05/18 17:52 Sodium Chloride Flush Syringe 10 Ml IV PRN PRN LINE FLUSH Nutrition/Malnutrition Assess - Dietary Evaluation Nutrition/Malnutrition Findings: Nutrition Notes Start: 11/06/18 16:18 Freq: Status: Active Protocol: Document 11/16/18 11:56 LP (Rec: 11/16/18 11:57 LP [id number]) Nutrition Notes Need for Assessment generated from: MD Order Initial or Follow up Brief Note Subjective/Other Information Consult for TF. Burn Absent Trauma Absent Nutrition Intervention Nutrition Support: Nepro at 30ml/hr Flush with 250 ml q4h until hypernatremia resolves Flush with 130 mls q4h once hyperntreamia resolves Follow-Up By: 11/19/18 Additional Comments Follow for TF restart
[2018-11-16] MEDS: LATANOPROST 0.005% OU SCH (18:11)
[2018-11-16] MEDS: APRESOLINE IV PRN (20:08)
[2018-11-16] MEDS: NON-FORMULARY (Brimonidine Tartrate [Brimonidine Tartrate 0.2%] 1 DROP) OP SCH (21:16)
[2018-11-17] MEDS: APRESOLINE IV PRN (06:15)
[2018-11-17] MEDS: HumaLOG SUB-Q SCH ×4 (06:18→17:47)
[2018-11-17] MEDS: D5/0.45NS 1,000 ML IV SCH (06:19)
[2018-11-17] MEDS: COREG PO SCH ×3 (09:20→21:28)
[2018-11-17] MEDS: BRIMONIDINE OP SCH (09:20)
[2018-11-17] MEDS: NEURONTIN PO SCH (09:21)
[2018-11-17] MEDS: PRAVACHOL PO SCH (09:21)
[2018-11-17] MEDS: PEPCID PO SCH (09:21)
[2018-11-17] MEDS: NON-FORMULARY (Brimonidine Tartrate [Brimonidine Tartrate 0.2%] 1 DROP) OP SCH ×2 (09:22→21:27)
[2018-11-17] MEDS: REQUIP PO SCH ×3 (09:22→20:29)
[2018-11-17] MEDS: SODIUM CHLORIDE FLUSH SYRINGE 10 ML IV SCH ×2 (09:23→21:30)
--- NOTE | 2018-11-17 11:52 | Progress Note ---
Assessment and Plan Acute Renal Failure likely secondary to ischemic ATN, no obstruction: S/p Hypokalemia: S/P Hypernatremia: Hyperkalemia: -stable kidney function, good UOP -On D5 1/2 NS at 50 mls/hr for hypernatremia and free water 200 cc q4h. Na trending down. -Renal ultrasound-negative -Monitor I/O's -Avoid nephrotoxic agents -Obtain daily weights -Continue to monitor renal function closely SIRS versus sepsis: -ID onboard Acute encephalopathy: Possible Seizures -Neurology onboard Acute Hypoxic Respiratory Failure: -On Oxygen via NC as per Pulmonary Subjective Date of service: 11/17/18 Principal diagnosis: Ac hypoxemic Resp Failure ; Possible Seizure; Ac. Met Encephalopathy; BRAD Interval history: Making urine. Objective - Exam Narrative Exam: General appearance: well-developed EENT: ATNC, PERRL, mucous membranes dry Neck: no JVD, no carotid bruit Respiratory: Present: Decreased Breath Sounds Gastrointestinal: normoactive bowel sounds, no tenderness, no distended Integumentary: no rash, warm and dry Neurologic: other Musculoskeletal: other (trace pitting edema in BUE) Psychiatric: other - Vital Signs Vital signs: Vital Signs - 12hr 11/16/18 11/17/18 11/17/18 23:54 00:00 00:01 Temperature 97.5 F L 97.5 F L Pulse Rate 88 79 Pulse Rate [ 76 From Monitor] Respiratory 17 13 Rate Blood Pressure 130/50 113/42 O2 Sat by Pulse 99 98 Oximetry 11/17/18 11/17/18 11/17/18 00:45 01:01 02:01 Temperature Pulse Rate 79 90 74 Pulse Rate [ From Monitor] Respiratory 16 15 13 Rate Blood Pressure 128/62 128/62 128/62 O2 Sat by Pulse 97 97 93 Oximetry 11/17/18 11/17/18 11/17/18 03:01 03:45 04:00 Temperature 97.5 F L 97.5 F L Pulse Rate 77 83 Pulse Rate [ 83 From Monitor] Respiratory 22 1 L Rate Blood Pressure 136/59 O2 Sat by Pulse 98 99 Oximetry 11/17/18 11/17/18 11/17/18 04:01 04:59 05:01 Temperature Pulse Rate 76 76 78 Pulse Rate [ From Monitor] Respiratory 17 16 13 Rate Blood Pressure 136/59 180/60 O2 Sat by Pulse 98 99 96 Oximetry 11/17/18 11/17/18 11/17/18 05:55 06:01 06:15 Temperature Pulse Rate 85 78 Pulse Rate [ From Monitor] Respiratory 15 Rate Blood Pressure 188/86 188/86 O2 Sat by Pulse 98 98 Oximetry 11/17/18 11/17/18 11/17/18 07:00 07:55 08:00 Temperature 97.8 F Pulse Rate 87 88 Pulse Rate [ 84 From Monitor] Respiratory 16 17 Rate Blood Pressure 137/60 145/58 O2 Sat by Pulse 96 97 97 Oximetry - Lab 11/15/18 05:30 11/17/18 12:22 Most recent lab results Calcium 9.9 mg/dL (8.4-10.2) 11/16/18 11:07 Phosphorus 3.00 mg/dL (2.5-4.5) D 11/08/18 04:27 Magnesium 2.20 mg/dL (1.7-2.3) 11/05/18 16:31 45.0 mg/dL (0.1-20.0) H 11/13/18 11:27 40 mmol/L 11/06/18 Unknown 68 mg/dL (5-11.8) H 11/06/18 Unknown Medications & Allergies - Medications Allergies/Adverse Reactions: Allergies aspirin Allergy (Verified 11/06/18 17:06) Unknown Home Medications: Home Medications Medication Instructions Recorded Confirmed Last Taken Type Carvedilol [Coreg] 25 mg PO BID 11/06/18 11/06/18 Unknown History Furosemide [Lasix TAB] 20 mg PO HS 11/06/18 11/06/18 Unknown History Furosemide [Lasix TAB] 40 mg PO QAM 11/06/18 11/06/18 Unknown History Gabapentin [Neurontin] 800 mg PO BID 11/06/18 11/06/18 Unknown History Pravastatin Sodium [Pravastatin] 20 mg PO DAILY 11/06/18 11/06/18 Unknown History Ropinirole HCl [Requip] 1 mg PO TID 11/06/18 11/06/18 Unknown History Brimonidine Tartrate [Brimonidine 1 drop OU BID 11/08/18 11/08/18 Unknown History Tartrate 0.2%] Active Medications: Generic Name Dose Route Start Last Admin Trade Name Freq PRN Reason Stop Dose Admin Acetaminophen 650 mg 11/14/18 10:52 Tylenol PO Q6H PRN Non Cardiac Pain or Temp>100.5 Albuterol 2.5 mg 11/05/18 17:52 11/12/18 20:15 Proventil IH 2.5 mg Q3HRT PRN Administration Shortness Of Breath Lipase/Protease/Amylase 1 each 11/16/18 07:34 Pancreazsarika Cruz 10,500 Unit FEEDTUBE PRN PRN For Clogged Feeding Tube Carvedilol 6.25 mg 11/09/18 11:00 11/17/18 09:28 Coreg PO 6.25 mg BID NIKKO Administration Dextrose 50 ml 11/05/18 17:59 D50w (25gm) Syringe IV PRN PRN Hypoglycemia Famotidine 20 mg 11/11/18 10:00 11/17/18 09:21 Pepcid PO 20 mg DAILY NIKKO Administration Gabapentin 800 mg 11/08/18 10:00 11/17/18 09:21 Neurontin PO 800 mg BID NIKKO Administration Hydralazine HCl 10 mg 11/05/18 21:30 11/17/18 06:15 Apresoline IV 10 mg Q6HR PRN Administration Hypertension Hydrophilic Ointment 1 applic 11/05/18 16:21 Vaseline Lip Therapy TP Q2HR PRN Dry Lips Dextrose/Sodium Chloride 1,000 mls @ 50 mls/hr 11/15/18 13:00 11/17/18 06:19 D5/0.45ns IV 50 mls/hr DIRECT NIKKO Administration Insulin Human Lispro 0 unit 11/06/18 12:00 11/17/18 06:18 Humalog SUB-Q Not Given Q6HR [facility] Protocol Latanoprost 1 drops 11/08/18 18:00 11/16/18 18:11 Latanoprost 0.005% OU 1 drops QPM NIKKO Administration Miscellaneous Medication 1 drop 11/08/18 22:00 11/16/18 21:33 Brimonidine Tartate OP 1 drop BID NIKKO Administration Miscellaneous Medication 1 drop 11/16/18 22:00 11/17/18 09:22 Brimonidine Tartrate [Brimonidine Tartrate 0.2%] OP 1 drop BID NIKKO Administration Morphine Sulfate 1 mg 11/14/18 10:52 07/19/19 09:27 Morphine IV 1 mg Q4H PRN Administration Pain , Severe (7-10) Multi-Ingred Cream/Lotion/Oil/Oint 1 applic 11/05/18 16:21 Artificial Tears Ophth Oint OU Q4HR PRN Dry Eye(s) Pravastatin Sodium 20 mg 11/08/18 10:00 11/17/18 09:21 Pravachol PO 20 mg DAILY NIKKO Administration Ropinirole HCl 1 mg 11/08/18 09:00 11/17/18 09:22 Requip PO 1 mg TID NIKKO Administration Simple Syrup 15 ml 11/16/18 07:34 Simple Syrup FEEDTUBE PRN PRN Hypoglycemia Simple Syrup 30 ml 11/16/18 07:34 Simple Syrup FEEDTUBE PRN PRN Hypoglycemia Sodium Bicarbonate 325 mg 11/16/18 07:34 Sodium Bicarbonate FEEDTUBE PRN PRN For Clogged Feeding Tube Sodium Chloride 10 ml 11/05/18 22:00 11/17/18 09:23 Sodium Chloride Flush Syringe 10 Ml IV 10 ml BID NIKKO Administration Sodium Chloride 10 ml 11/05/18 17:52 Sodium Chloride Flush Syringe 10 Ml IV PRN PRN LINE FLUSH
[2018-11-17 12:52] LABS: Calcium 9.7 mg/dL (8.4-10.2)
--- NOTE | 2018-11-17 13:51 | Progress Note ---
Assessment and Plan Assessment and plan: Patient is a 82 yo woman (No prior admission here for review, first visit in our EMR. Also, her is in Hospice for metastatic cancer per son Lauro) with a history of hypertension, dyslipidemia, OA s/p bilateral TKR and possible CHF who presented to [facility] ED with AMS. Apparently, patient was found unresponsive in the bed and seizing. On EMS arrival patient was noted to have a GCS of 3 and was placed on oxygen mask and intubated in the ED on arrival 11/05/18. Initial Temp was noted as 102.2. In the ED patient was intubated due to AMS and Acute Hypoxemic Respiratory Failure, and is unable to protect her airway, Teleneurology consulted in ED. Pt deemed not a candidate for TPA. Initially pCXR on 11/05/18 showed ETT in good position, no other significant findings, CT abd/pelvis without contrast showed mild bibasilar lung atelectasis as well as mildly distended gallbladder with minimal cholelithiasis. 11/10/18 pCXR showed developing Atelectasis and bilateral pleural effusion. Then pCXR on 11/11/18 showed increasing pleural parenchymal opacity LLL. Patient was eventually extubated on 11/11/18 and placed on bipap 50%. Then on 11/13/18 bipap removed in AM and patient transferred out of the ICU to [facility]. * Renal us: Small left renal cyst, negative for obstruction or mass * MRI Head: negative for acute pathology * Culture: Staph homis in blood * MSSA trach culture * CT chest wo contrast 11/11/18 IMPRESSION: Small pleural effusions, left greater than right. Basilar consolidation is probably secondary to atelectasis and less likely pneumonia. The remainder of the lungs appear clear. * 11/07/18 2D ECHO Conclusions: Mild to moderate concentric LVH, est EF 40-45%, left ventricular diastolic filling pattern is c/w pseudonormalization, RVSF mildly reduced, mild TR, small pericardial effusion, circumferential, no evidence of tamponade Acute hypoxic respiratory failure >96 hours, poa: currently extubated on Sunday11/11/18, off Bipap, on high flow and Pulm is following MSSA Sepsis Left Lobar Pneumonia: treated with Abx, ID following. Staph Hominis Bacteremia: Repeat blood cultures negative, ID following Hyperkalemia: treated with kayexalate and monitor bmp closely, Nephrology is following Acute cystitis: treated with Abx, monitor bmp closely Hypertensive Urgency: Resume Coreg, Hydrazine Status Epilepticus, poa: Neurology is following, treat with prn IV ativan Lactic Acidosis, treat with renal failure Hypernatermia resolved: monitor bmp closely Acute Metabolic Encephalopathy Thrombocytopenia; improving, monitor CBC closely ARF due to suspect ATN, poa: Nephrology following. Dysphagia, failed swallow evaluation: dobhuff and speech therapy ICU deconditioning: order pt/ot Bolton removed after 24hr urine collection with a Purex in right EJ removed, midline placed Left arm swollen: venous doppler ordered which was negative for DVT D/C to LTACH once accepted I called [employer] @ then pressed 5, left message for call back History Interval history: Patient was seen and examined. Follow-up on current diagnosis of AMS and respiratory failure. No overnight events reported to me. Imaging, nursing note, chart, labs and old chart reviewed. Moved to [facility] on 11/13/18 from ICU. son Lauro and Daughter, son in law and granddaughter present. Hospitalist Physical - Physical exam Narrative exam: Gen: ill appearing, mild increase in accessory muscles, off bipap on high flow O2, lethargic HEENT: NCAT, EOMI, PERRL, OP Clear Neck: supple, no adenopathy, no thyromegaly, no JVD CVS/Heart: Regular tachycardia normal S1S2, pulses present bilaterally Chest/Lungs: tachypneic, diminished bs bilatearal, Symmetrical chest expansion, good air entry bilaterally GI/Abdomen: soft, NTND, good bowel sounds, no guarding or rebound /Bladder: no suprapubic tenderness, no CVA or paraspinal tenderness Extermity/Skin: dependent edema, pale skin MSK: doesn't follow commands Neuro: CN 2-12 grossly intact, not following commands Psych: calm - Constitutional Vitals: Temp Pulse Resp BP Pulse Ox 97.2 F L 84 16 145/58 99 11/17/18 12:00 11/17/18 08:00 11/17/18 08:00 11/17/18 08:00 11/17/18 12:13 General appearance: Absent: severe distress Results - Labs CBC & Chem 7: 11/15/18 05:30 11/17/18 12:22 Labs: Laboratory Last Values WBC 6.3 K/mm3 (4.5-11.0) 11/15/18 05:30 RBC 3.19 M/mm3 (3.65-5.03) L 11/15/18 05:30 Hgb 9.4 gm/dl (10.1-14.3) L 11/15/18 05:30 Hct 29.3 % (30.3-42.9) L 11/15/18 05:30 MCV 92 fl (79-97) 11/15/18 05:30 MCH 30 pg (28-32) 11/15/18 05:30 MCHC 32 % (30-34) 11/15/18 05:30 RDW 14.6 % (13.2-15.2) 11/15/18 05:30 Plt Count 176 K/mm3 (140-440) 11/15/18 05:30 Lymph % (Auto) 13.4 % (13.4-35.0) 11/10/18 09:52 Gilliam % (Auto) 14.8 % (0.0-7.3) H 11/10/18 09:52 Eos % (Auto) 1.6 % (0.0-4.3) 11/10/18 09:52 Baso % (Auto) 0.3 % (0.0-1.8) 11/10/18 09:52 Lymph # 0.6 K/mm3 (1.2-5.4) L 11/10/18 09:52 Gilliam # 0.7 K/mm3 (0.0-0.8) 11/10/18 09:52 Eos # 0.1 K/mm3 (0.0-0.4) 11/10/18 09:52 Baso # 0.0 K/mm3 (0.0-0.1) 11/10/18 09:52 Seg Neutrophils % 69.9 % (40.0-70.0) 11/10/18 09:52 Seg Neutrophils # 3.2 K/mm3 (1.8-7.7) 11/10/18 09:52 PT 15.2 Sec. (12.2-14.9) H 11/11/18 10:03 INR 1.23 (0.87-1.13) H 11/11/18 10:03 APTT 31.8 Sec. (24.2-36.6) 11/11/18 10:03 Heparin Anti-Xa, Unfract Negative (Negative) 11/08/18 13:49 POC ABG pH 7.415 (7.35-7.45) 11/12/18 04:44 POC ABG pCO2 34.0 (35-45) L 11/12/18 04:44 POC ABG pO2 138 (80-105) H 11/12/18 04:44 POC ABG HCO3 21.8 (22-26 mml/L) 11/12/18 04:44 POC ABG Total CO2 23 (23-27mmol/L) 11/12/18 04:44 POC ABG O2 Sat 99 11/12/18 04:44 POC ABG Base Excess -3 ((-2) - (+3)mmol/L) 11/12/18 04:44 30 % 11/12/18 04:44 Sodium 146 mmol/L (137-145) H 11/17/18 12:22 Potassium 4.1 mmol/L (3.6-5.0) 11/17/18 12:22 Chloride 115.1 mmol/L (98-107) H 11/17/18 12:22 Carbon Dioxide 25 mmol/L (22-30) 11/17/18 12:22 10 mmol/L 11/17/18 12:22 BUN 35 mg/dL (7-17) H 11/17/18 12:22 2.0 mg/dL (0.7-1.2) H 11/17/18 12:22 Estimated GFR 24 ml/min 11/17/18 12:22 18 % 11/17/18 12:22 Glucose 142 mg/dL (65-100) H 11/17/18 12:22 POC Glucose 139 (70-105) H 11/17/18 12:01 Lactic Acid 0.70 mmol/L (0.7-2.0) 11/09/18 04:12 Calcium 9.7 mg/dL (8.4-10.2) 11/17/18 12:22 Phosphorus 3.00 mg/dL (2.5-4.5) D 11/08/18 04:27 Magnesium 2.20 mg/dL (1.7-2.3) 11/05/18 16:31 0.40 mg/dL (0.1-1.2) 11/12/18 04:28 AST 27 units/L (5-40) 11/12/18 04:28 ALT 24 units/L (7-56) 11/12/18 04:28 66 units/L (35-129) 11/12/18 04:28 44.0 umol/L (25-60) 11/05/18 17:28 < 7 units/L (30-135) L 11/05/18 16:31 0.019 ng/mL (0.00-0.029) 11/05/18 16:31 3.50 mg/dL (0.00-1.30) H 11/07/18 15:48 5.9 g/dL (6.3-8.2) L 11/12/18 04:28 2.5 g/dL (3.9-5) L 11/12/18 04:28 0.7 % 11/12/18 04:28 See scanned result 11/08/18 13:49 TSH 0.972 mlU/mL (0.270-4.200) 11/05/18 16:31 Yellow (Yellow) 11/05/18 20:47 Slightly-cloudy (Clear) 11/05/18 20:47 5.0 (5.0-7.0) 11/05/18 20:47 Ur Specific Salol 1.016 (1.003-1.030) 11/05/18 20:47 100 mg/dl mg/dL (Negative) 11/05/18 20:47 50 mg/dL (Negative) 11/05/18 20:47 Neg mg/dL (Negative) 11/05/18 20:47 Sm (Negative) 11/05/18 20:47 Pos (Negative) 11/05/18 20:47 Neg (Negative) 11/05/18 20:47 < 2.0 mg/dL (<2.0) 11/05/18 20:47 Ur Leukocyte Esterase Tr (Negative) 11/05/18 20:47 19.0 /HPF (0.0-6.0) H 11/05/18 20:47 4.0 /HPF (0.0-6.0) 11/05/18 20:47 U Epithel Cells (Auto) 1.0 /HPF (0-13.0) 11/05/18 20:47 Few /HPF 11/05/18 20:47 None seen (None Seen) 11/06/18 14:48 2800 ml 11/13/18 11:27 45.0 mg/dL (0.1-20.0) H 11/13/18 11:27 Height (in) 65.0 inches 11/13/18 11:27 Weight (lb) 153.7 lbs 11/13/18 11:27 37 11/13/18 11:27 40 mmol/L 11/06/18 Unknown 68 mg/dL (5-11.8) H 11/06/18 Unknown Clear 11/11/18 Unknown Colorless 11/11/18 Unknown 10 /mm3 (1-10) 11/11/18 Unknown 22 /mm3 (0-0) 11/11/18 Unknown CSF Seg Neutrophils 0 % (0-6) 11/11/18 Unknown 37.8 % (40-80) 11/11/18 Unknown CSF Reactive Lymphs 0 % 11/11/18 Unknown 62.2 % (15-45) 11/11/18 Unknown 0 % 11/11/18 Unknown 0 % 11/11/18 Unknown C 11/11/18 Unknown 77 mg/dL 11/11/18 Unknown 57 mg/dL 11/11/18 Unknown Vancomycin Trough 17.5 ug/mL (5.0-20.0) 11/08/18 21:16 Random Vancomycin 22.4 ug/mL (0-40.0) 11/11/18 05:01 Salicylates < 0.3 mg/dL (2.8-20.0) L 11/05/18 16:31 Acetaminophen < 5.0 ug/mL (10.0-30.0) L 11/05/18 16:31 Plasma/Serum Alcohol < 0.01 % (0-0.07) 11/05/18 16:31 Heparin-induced Plt Ab Negative (Negative) 11/08/18 13:49 UF Heparin High Dose 0 % Release 11/08/18 13:49 KIANNA UFH Low Dose 0.1 0 % Release 11/08/18 13:49 KIANNA UFH Low Dose 0.5 0 % Release 11/08/18 13:49 Active Medications - Current Medications Current Medications: Generic Name Dose Route Start Last Admin Trade Name Freq PRN Reason Stop Dose Admin Acetaminophen 650 mg 11/14/18 10:52 Tylenol PO Q6H PRN Non Cardiac Pain or Temp>100.5 Albuterol 2.5 mg 11/05/18 17:52 11/12/18 20:15 Proventil IH 2.5 mg Q3HRT PRN Administration Shortness Of Breath Lipase/Protease/Amylase 1 each 11/16/18 07:[address] 10,500 Unit FEEDTUBE PRN PRN For Clogged Feeding Tube Carvedilol 6.25 mg 11/09/18 11:00 11/17/18 09:28 Coreg PO 6.25 mg BID NIKKO Administration Dextrose 50 ml 11/05/18 17:59 D50w (25gm) Syringe IV PRN PRN Hypoglycemia Famotidine 20 mg 11/11/18 10:00 11/17/18 09:21 Pepcid PO 20 mg DAILY NIKKO Administration Gabapentin 800 mg 11/08/18 10:00 11/17/18 09:21 Neurontin PO 800 mg BID NIKKO Administration Hydralazine HCl 10 mg 11/05/18 21:30 11/17/18 06:15 Apresoline IV 10 mg Q6HR PRN Administration Hypertension Hydrophilic Ointment 1 applic 11/05/18 16:21 Vaseline Lip Therapy TP Q2HR PRN Dry Lips Dextrose/Sodium Chloride 1,000 mls @ 50 mls/hr 11/15/18 13:00 11/17/18 06:19 D5/0.45ns IV 50 mls/hr DIRECT NIKKO Administration Insulin Human Lispro 0 unit 11/06/18 12:00 11/17/18 12:24 Humalog SUB-Q Not Given Q6HR NIKKO Protocol Latanoprost 1 drops 11/08/18 18:00 11/16/18 18:11 Latanoprost 0.005% OU 1 drops QPM NIKKO Administration Miscellaneous Medication 1 drop 11/08/18 22:00 11/17/18 09:20 Brimonidine Tartate OP Not Given BID NIKKO Miscellaneous Medication 1 drop 11/16/18 22:00 11/17/18 09:22 Brimonidine Tartrate [Brimonidine Tartrate 0.2%] OP 1 drop BID NIKKO Administration Morphine Sulfate 1 mg 11/14/18 10:52 11/15/18 09:27 Morphine IV 1 mg Q4H PRN Administration Pain , Severe (7-10) Multi-Ingred Cream/Lotion/Oil/Oint 1 applic 11/05/18 16:21 Artificial Tears Ophth Oint OU Q4HR PRN Dry Eye(s) Pravastatin Sodium 20 mg 11/08/18 10:00 11/17/18 09:21 Pravachol PO 20 mg DAILY NIKKO Administration Ropinirole HCl 1 mg 11/08/18 09:00 11/17/18 13:29 Requip PO 1 mg TID NIKKO Administration Simple Syrup 15 ml 11/16/18 07:34 Simple Syrup FEEDTUBE PRN PRN Hypoglycemia Simple Syrup 30 ml 11/16/18 07:34 Simple Syrup FEEDTUBE PRN PRN Hypoglycemia Sodium Bicarbonate 325 mg 11/16/18 07:34 Sodium Bicarbonate FEEDTUBE PRN PRN For Clogged Feeding Tube Sodium Chloride 10 ml 11/05/18 22:00 11/17/18 09:23 Sodium Chloride Flush Syringe 10 Ml IV 10 ml BID NIKKO Administration Sodium Chloride 10 ml 11/05/18 17:52 Sodium Chloride Flush Syringe 10 Ml IV PRN PRN LINE FLUSH Nutrition/Malnutrition Assess - Dietary Evaluation Nutrition/Malnutrition Findings: Nutrition Notes Start: 11/06/18 16:18 Freq: Status: Active Protocol: Document 11/16/18 11:56 LP (Rec: 11/16/18 11:57 LP [id number]) Nutrition Notes Need for Assessment generated from: MD Order Initial or Follow up Brief Note Subjective/Other Information Consult for TF. Burn Absent Trauma Absent Nutrition Intervention Nutrition Support: Nepro at 30ml/hr Flush with 250 ml q4h until hypernatremia resolves Flush with 130 mls q4h once hyperntreamia resolves Follow-Up By: 11/19/18 Additional Comments Follow for TF restart
[2018-11-17] MEDS: LATANOPROST 0.005% OU SCH (17:41)
--- NOTE | 2018-11-17 19:39 | Progress Note ---
Assessment and Plan Acute Respiratory Failure with Hypoxia Gram positive bacteremia (in clusters)Staph Hominis Possible Seizure Lactic Acidosis, resolved Acute metabolic encephalopathy Hypernatermia Acute Metabolic Encephalopathy BRAD possible secondary to Ischemic ATN Thrombocytopenia, resolving Hypokalemia -Continue high flow oxygen wean supplemental oxygen for O2 tory>90% - continue bronchodilators with pulmonary hygiene per RT - continue enteric nutrition as tolerated -Nutrition consult placed, start Glucerna until seen by boot liner maker -ABG and CXR as indicated - continue accuchecks with glycemic control per SSI for target blood glucose <180mg/dL - Prevention of delirium, maintenance of sleep-wake cycle - Azotemia per nephrology; continue gentle hydration- change IVF to D5 1/4Nsaline in view of hypernatremia. Continue free water flushes - Avoid nephrotoxic agents, adjust all antibiotics and medications for CrCL and GFR - cardioprotective measures -PT/OT/Mobility program Discharge planning CONDITION:FAIR PROGNOSIS: FAIR CODE STATUS: FULL CODE Subjective Date of service: 11/17/18 Principal diagnosis: Ac hypoxemic Resp Failure ; Possible Seizure; Ac. Met Encephalopathy; BRAD Interval history: Patient is seen today for: Acute Respiratory Failure with Hypoxemia; Gram positive bacteremia (in clusters); Possible Seizure; Lactic Acidosis; Hypernatermia; Acute Metabolic Encephalopathy; BRAD possible secondary to Ischemic ATN Seen and examined at bedside; 24hour events reviewed; nursing and respiratory care staff consulted; no adverse overnight events reported to me; resting peacefully in bed; awake and alert, No emesis or overt aspiration; no reported seizures; failed swallow evaluation, needs feeding tube. High flow oxygen at 40L and 40%, nocturnal BIPAP Vitals, labs, medications, chart reviewed. Discussed with RN and RT. Son at the bedside Objective Vital Signs - 12hr 11/17/18 11/17/18 11/17/18 07:55 08:00 09:01 Temperature 97.8 F Pulse Rate 88 85 Pulse Rate [ 84 From Monitor] Respiratory 17 13 Rate Blood Pressure 145/58 131/56 O2 Sat by Pulse 97 97 99 Oximetry 11/17/18 11/17/18 11/17/18 10:00 11:00 12:00 Temperature 97.2 F L Pulse Rate 78 69 72 Pulse Rate [ 75 From Monitor] Respiratory 13 13 13 Rate Blood Pressure 144/51 132/50 137/56 O2 Sat by Pulse 99 95 99 Oximetry 11/17/18 11/17/18 11/17/18 12:13 13:00 14:00 Temperature Pulse Rate 75 77 Pulse Rate [ From Monitor] Respiratory 16 17 Rate Blood Pressure 135/49 138/60 O2 Sat by Pulse 99 99 100 Oximetry 11/17/18 11/17/18 11/17/18 15:00 16:00 17:00 Temperature 97.9 F Pulse Rate 70 74 76 Pulse Rate [ 76 From Monitor] Respiratory 13 13 16 Rate Blood Pressure 133/53 147/54 154/52 O2 Sat by Pulse 96 99 99 Oximetry 11/17/18 11/17/18 18:00 19:25 Temperature Pulse Rate 79 Pulse Rate [ From Monitor] Respiratory 13 Rate Blood Pressure 154/63 O2 Sat by Pulse 98 98 Oximetry Constitutional: no acute distress, appears uncomfortable, other Eyes: non-icteric ENT: oropharynx moist Neck: supple, no lymphadenopathy, no JVD, other (no thyromegaly) Effort: mildly labored Ascultation: Bilateral: diminished breath sounds, rhonchi (bases) Percussion: Bilateral: not dull Cardiovascular: regular rate and rhythm, murmur noted (systolic), other Gastrointestinal: normoactive bowel sounds, soft, non-tender, non-distended Integumentary: normal Extremities: no cyanosis, no edema, pink and warm, pulses normal, no ischemia or petechiae Neurologic: non-focal exam (moves all extremities, obeys onse step commands), pupils equal and round Psychiatric: mood appropriate, affect normal CBC and BMP: 11/15/18 05:30 11/17/18 12:22 ABG, PT/INR, D-dimer: ABG POC ABG pH 7.415 (7.35-7.45) 11/12/18 04:44 POC ABG pCO2 34.0 (35-45) L 11/12/18 04:44 POC ABG pO2 138 (80-105) H 11/12/18 04:44 POC ABG HCO3 21.8 (22-26 mml/L) 11/12/18 04:44 POC ABG Total CO2 23 (23-27mmol/L) 11/12/18 04:44 POC ABG O2 Sat 99 11/12/18 04:44 PT/INR, D-dimer PT 15.2 Sec. (12.2-14.9) H 11/11/18 10:03 INR 1.23 (0.87-1.13) H 11/11/18 10:03 Abnormal lab findings: Abnormal Labs 11/05/18 11/05/18 11/05/18 16:31 16:31 16:31 WBC RBC Hgb Hct Plt Count 139 L [place] % (Auto) Lymph # 0.7 L Seg Neutrophils % 78.8 H PT INR POC ABG pH POC ABG pCO2 POC ABG pO2 Sodium 148 H Potassium 3.2 L Chloride 110.6 H Carbon Dioxide 17 L BUN 18 H Creatinine 1.9 H Glucose 205 H POC Glucose Lactic Acid 8.20 H* Calcium 10.9 H Phosphorus Total Creatine Kinase C-Reactive Protein Total Protein Albumin 3.6 L Urine WBC (Auto) Urine Creatinine Urine Total Protein Salicylates Acetaminophen 11/05/18 11/05/18 11/05/18 16:31 16:31 16:31 WBC RBC Hgb Hct Plt Count [place] % (Auto) Lymph # Seg Neutrophils % PT INR POC ABG pH POC ABG pCO2 POC ABG pO2 Sodium Potassium Chloride Carbon Dioxide BUN Creatinine Glucose POC Glucose Lactic Acid Calcium Phosphorus Total Creatine Kinase < 7 L C-Reactive Protein Total Protein Albumin Urine WBC (Auto) Urine Creatinine Urine Total Protein Salicylates < 0.3 L Acetaminophen < 5.0 L 11/05/18 11/05/18 11/05/18 17:29 17:42 20:47 WBC RBC Hgb Hct Plt Count [place] % (Auto) Lymph # Seg Neutrophils % PT INR POC ABG pH POC ABG pCO2 33.4 L POC ABG pO2 136 H Sodium Potassium Chloride Carbon Dioxide BUN Creatinine Glucose POC Glucose Lactic Acid 3.30 H* Calcium Phosphorus Total Creatine Kinase C-Reactive Protein Total Protein Albumin Urine WBC (Auto) 19.0 H Urine Creatinine Urine Total Protein Salicylates Acetaminophen 11/05/18 11/05/18 11/06/18 20:47 22:42 04:09 WBC 4.4 L RBC Hgb Hct Plt Count 102 L [place] % (Auto) 13.2 H Lymph # 1.0 L Seg Neutrophils % PT INR POC ABG pH POC ABG pCO2 POC ABG pO2 Sodium Potassium Chloride Carbon Dioxide BUN Creatinine Glucose POC Glucose 121 H Lactic Acid Calcium Phosphorus Total Creatine Kinase C-Reactive Protein Total Protein Albumin Urine WBC (Auto) Urine Creatinine 166.9 H Urine Total Protein Salicylates Acetaminophen 11/06/18 11/06/18 11/06/18 04:09 05:05 07:31 WBC RBC Hgb Hct Plt Count [place] % (Auto) Lymph # Seg Neutrophils % PT INR POC ABG pH 7.509 H POC ABG pCO2 < 30 L POC ABG pO2 115 H Sodium 150 H Potassium 2.7 L* Chloride 118.2 H Carbon Dioxide 21 L BUN 21 H Creatinine 1.6 H Glucose 125 H POC Glucose Lactic Acid 2.50 H* Calcium Phosphorus Total Creatine Kinase C-Reactive Protein Total Protein 5.7 L Albumin 3.1 L Urine WBC (Auto) Urine Creatinine Urine Total Protein Salicylates Acetaminophen 11/06/18 11/06/18 11/06/18 12:04 16:21 18:04 WBC RBC Hgb Hct Plt Count [place] % (Auto) Lymph # Seg Neutrophils % PT INR POC ABG pH POC ABG pCO2 POC ABG pO2 Sodium Potassium 5.4 H D Chloride Carbon Dioxide BUN Creatinine Glucose POC Glucose 122 H 110 H Lactic Acid Calcium Phosphorus Total Creatine Kinase C-Reactive Protein Total Protein Albumin Urine WBC (Auto) Urine Creatinine Urine Total Protein Salicylates Acetaminophen 11/06/18 11/06/18 11/07/18 21:28 Unknown 04:02 WBC RBC Hgb Hct Plt Count [place] % (Auto) Lymph # Seg Neutrophils % PT INR POC ABG pH POC ABG pCO2 POC ABG pO2 Sodium 152 H Potassium Chloride 123.4 H Carbon Dioxide 20 L BUN 23 H Creatinine 1.5 H Glucose 111 H POC Glucose 125 H Lactic Acid Calcium Phosphorus 1.00 L Total Creatine Kinase C-Reactive Protein Total Protein Albumin Urine WBC (Auto) Urine Creatinine 155.8 H Urine Total Protein 68 H Salicylates Acetaminophen 11/07/18 11/07/18 11/07/18 09:07 11:05 15:48 WBC 4.1 L RBC 3.62 L Hgb Hct Plt Count 77 L [place] % (Auto) Lymph # Seg Neutrophils % PT INR POC ABG pH 7.314 L POC ABG pCO2 POC ABG pO2 Sodium Potassium Chloride Carbon Dioxide BUN Creatinine Glucose POC Glucose Lactic Acid Calcium Phosphorus Total Creatine Kinase C-Reactive Protein 3.50 H Total Protein Albumin Urine WBC (Auto) Urine Creatinine Urine Total Protein Salicylates Acetaminophen 11/08/18 11/08/18 11/08/18 04:27 05:29 12:27 WBC RBC Hgb Hct Plt Count [place] % (Auto) Lymph # Seg Neutrophils % PT INR POC ABG pH POC ABG pCO2 33.4 L POC ABG pO2 78 L Sodium 146 H Potassium Chloride 117.1 H Carbon Dioxide 18 L BUN 19 H Creatinine 1.6 H Glucose 111 H POC Glucose 108 H Lactic Acid Calcium Phosphorus Total Creatine Kinase C-Reactive Protein Total Protein Albumin Urine WBC (Auto) Urine Creatinine Urine Total Protein Salicylates Acetaminophen 11/08/18 11/08/18 11/08/18 12:27 18:11 23:50 WBC RBC Hgb Hct Plt Count [place] % (Auto) Lymph # Seg Neutrophils % PT INR POC ABG pH POC ABG pCO2 POC ABG pO2 Sodium Potassium Chloride Carbon Dioxide BUN Creatinine Glucose POC Glucose 188 H 126 H 149 H Lactic Acid Calcium Phosphorus Total Creatine Kinase C-Reactive Protein Total Protein Albumin Urine WBC (Auto) Urine Creatinine Urine Total Protein Salicylates Acetaminophen 11/09/18 11/09/18 11/09/18 03:32 04:12 04:12 WBC 3.6 L RBC 2.99 L Hgb 8.8 L Hct 26.9 L Plt Count 81 L [place] % (Auto) Lymph # Seg Neutrophils % PT INR POC ABG pH 7.329 L POC ABG pCO2 POC ABG pO2 Sodium Potassium Chloride 114.8 H Carbon Dioxide 20 L BUN 28 H Creatinine 1.9 H Glucose 144 H POC Glucose Lactic Acid Calcium 8.2 L Phosphorus Total Creatine Kinase C-Reactive Protein Total Protein Albumin Urine WBC (Auto) Urine Creatinine Urine Total Protein Salicylates Acetaminophen 11/09/18 11/09/18 11/09/18 05:24 12:59 17:59 WBC RBC Hgb Hct Plt Count [place] % (Auto) Lymph # Seg Neutrophils % PT INR POC ABG pH POC ABG pCO2 POC ABG pO2 Sodium Potassium Chloride Carbon Dioxide BUN Creatinine Glucose POC Glucose 163 H 175 H 116 H Lactic Acid Calcium Phosphorus Total Creatine Kinase C-Reactive Protein Total Protein Albumin Urine WBC (Auto) Urine Creatinine Urine Total Protein Salicylates Acetaminophen 11/10/18 11/10/18 11/10/18 00:45 03:57 06:45 WBC RBC Hgb Hct Plt Count [place] % (Auto) Lymph # Seg Neutrophils % PT INR POC ABG pH 7.332 L POC ABG pCO2 POC ABG pO2 Sodium Potassium Chloride Carbon Dioxide BUN Creatinine Glucose POC Glucose 201 H 148 H Lactic Acid Calcium Phosphorus Total Creatine Kinase C-Reactive Protein Total Protein Albumin Urine WBC (Auto) Urine Creatinine Urine Total Protein Salicylates Acetaminophen 11/10/18 11/10/18 11/10/18 09:52 09:52 12:36 WBC RBC 3.48 L Hgb Hct Plt Count 103 L [place] % (Auto) 14.8 H Lymph # 0.6 L Seg Neutrophils % PT INR POC ABG pH POC ABG pCO2 POC ABG pO2 Sodium Potassium Chloride 109.3 H Carbon Dioxide 21 L BUN 36 H Creatinine 2.1 H Glucose 134 H POC Glucose 142 H Lactic Acid Calcium Phosphorus Total Creatine Kinase C-Reactive Protein Total Protein Albumin Urine WBC (Auto) Urine Creatinine Urine Total Protein Salicylates Acetaminophen 11/10/18 11/10/18 11/11/18 17:31 23:34 05:01 WBC 4.1 L RBC 3.11 L Hgb 9.1 L Hct 27.7 L Plt Count 97 L [place] % (Auto) Lymph # Seg Neutrophils % PT INR POC ABG pH POC ABG pCO2 POC ABG pO2 Sodium Potassium Chloride Carbon Dioxide BUN Creatinine Glucose POC Glucose 152 H 163 H Lactic Acid Calcium Phosphorus Total Creatine Kinase C-Reactive Protein Total Protein Albumin Urine WBC (Auto) Urine Creatinine Urine Total Protein Salicylates Acetaminophen 11/11/18 11/11/18 11/11/18 05:01 05:34 10:03 WBC RBC Hgb Hct Plt Count [place] % (Auto) Lymph # Seg Neutrophils % PT 15.2 H INR 1.23 H POC ABG pH POC ABG pCO2 POC ABG pO2 Sodium Potassium 5.3 H Chloride 108.2 H Carbon Dioxide 21 L BUN 39 H Creatinine 2.2 H Glucose 155 H POC Glucose 159 H Lactic Acid Calcium Phosphorus Total Creatine Kinase C-Reactive Protein Total Protein Albumin Urine WBC (Auto) Urine Creatinine Urine Total Protein Salicylates Acetaminophen 11/11/18 11/11/18 11/11/18 12:36 17:00 17:25 WBC RBC Hgb Hct Plt Count [place] % (Auto) Lymph # Seg Neutrophils % PT INR POC ABG pH POC ABG pCO2 POC ABG pO2 121 H Sodium Potassium Chloride Carbon Dioxide BUN Creatinine Glucose POC Glucose 147 H 116 H Lactic Acid Calcium Phosphorus Total Creatine Kinase C-Reactive Protein Total Protein Albumin Urine WBC (Auto) Urine Creatinine Urine Total Protein Salicylates Acetaminophen 11/11/18 11/11/18 11/12/18 20:33 23:46 04:28 WBC RBC 3.26 L Hgb 9.6 L Hct 29.2 L Plt Count 126 L [place] % (Auto) Lymph # Seg Neutrophils % PT INR POC ABG pH 7.247 L POC ABG pCO2 53.6 H POC ABG pO2 Sodium Potassium Chloride Carbon Dioxide BUN Creatinine Glucose POC Glucose 130 H Lactic Acid Calcium Phosphorus Total Creatine Kinase C-Reactive Protein Total Protein Albumin Urine WBC (Auto) Urine Creatinine Urine Total Protein Salicylates Acetaminophen 11/12/18 11/12/18 11/13/18 04:28 04:44 04:49 WBC RBC 2.89 L Hgb 8.6 L Hct 25.7 L Plt Count 133 L [place] % (Auto) Lymph # Seg Neutrophils % PT INR POC ABG pH POC ABG pCO2 34.0 L POC ABG pO2 138 H Sodium Potassium 5.2 H Chloride 109.9 H Carbon Dioxide 20 L BUN 40 H Creatinine 2.2 H Glucose 112 H POC Glucose Lactic Acid Calcium Phosphorus Total Creatine Kinase C-Reactive Protein Total Protein 5.9 L Albumin 2.5 L Urine WBC (Auto) Urine Creatinine Urine Total Protein Salicylates Acetaminophen 11/13/18 11/13/18 11/14/18 04:49 11:27 04:19 WBC RBC 3.32 L Hgb 9.7 L Hct 29.8 L Plt Count [place] % (Auto) Lymph # Seg Neutrophils % PT INR POC ABG pH POC ABG pCO2 POC ABG pO2 Sodium Potassium 5.1 H Chloride 113.7 H Carbon Dioxide 21 L BUN 44 H Creatinine 2.3 H Glucose POC Glucose Lactic Acid Calcium Phosphorus Total Creatine Kinase C-Reactive Protein Total Protein Albumin Urine WBC (Auto) Urine Creatinine 45.0 H Urine Total Protein Salicylates Acetaminophen 11/14/18 11/14/18 11/15/18 04:19 17:45 04:00 WBC RBC Hgb Hct Plt Count [place] % (Auto) Lymph # Seg Neutrophils % PT INR POC ABG pH POC ABG pCO2 POC ABG pO2 Sodium 147 H 150 H Potassium Chloride 114.8 H 118.9 H Carbon Dioxide 18 L 18 L BUN 44 H 45 H Creatinine 2.2 H 2.3 H Glucose POC Glucose 68 L Lactic Acid Calcium Phosphorus Total Creatine Kinase C-Reactive Protein Total Protein Albumin Urine WBC (Auto) Urine Creatinine Urine Total Protein Salicylates Acetaminophen 11/15/18 11/16/18 11/16/18 05:30 00:03 01:19 WBC RBC 3.19 L Hgb 9.4 L Hct 29.3 L Plt Count [place] % (Auto) Lymph # Seg Neutrophils % PT INR POC ABG pH POC ABG pCO2 POC ABG pO2 Sodium Potassium Chloride Carbon Dioxide BUN Creatinine Glucose POC Glucose 122 H 115 H Lactic Acid Calcium Phosphorus Total Creatine Kinase C-Reactive Protein Total Protein Albumin Urine WBC (Auto) Urine Creatinine Urine Total Protein Salicylates Acetaminophen 11/16/18 11/16/18 11/16/18 05:07 11:07 12:13 WBC RBC Hgb Hct Plt Count [place] % (Auto) Lymph # Seg Neutrophils % PT INR POC ABG pH POC ABG pCO2 POC ABG pO2 Sodium 151 H Potassium Chloride 119.5 H Carbon Dioxide BUN 39 H Creatinine 2.2 H Glucose 123 H POC Glucose 110 H 146 H Lactic Acid Calcium Phosphorus Total Creatine Kinase C-Reactive Protein Total Protein Albumin Urine WBC (Auto) Urine Creatinine Urine Total Protein Salicylates Acetaminophen 11/16/18 11/17/18 11/17/18 18:02 00:00 05:51 WBC RBC Hgb Hct Plt Count [place] % (Auto) Lymph # Seg Neutrophils % PT INR POC ABG pH POC ABG pCO2 POC ABG pO2 Sodium Potassium Chloride Carbon Dioxide BUN Creatinine Glucose POC Glucose 129 H 111 H 137 H Lactic Acid Calcium Phosphorus Total Creatine Kinase C-Reactive Protein Total Protein Albumin Urine WBC (Auto) Urine Creatinine Urine Total Protein Salicylates Acetaminophen 11/17/18 11/17/18 11/17/18 12:01 12:22 17:45 WBC RBC Hgb Hct Plt Count [place] % (Auto) Lymph # Seg Neutrophils % PT INR POC ABG pH POC ABG pCO2 POC ABG pO2 Sodium 146 H Potassium Chloride 115.1 H Carbon Dioxide BUN 35 H Creatinine 2.0 H Glucose 142 H POC Glucose 139 H 132 H Lactic Acid Calcium Phosphorus Total Creatine Kinase C-Reactive Protein Total Protein Albumin Urine WBC (Auto) Urine Creatinine Urine Total Protein Salicylates Acetaminophen Allied health notes reviewed: nursing
[2018-11-18] MEDS: HumaLOG SUB-Q SCH ×6 (00:30→17:31)
[2018-11-18] MEDS: BRIMONIDINE OP SCH ×2 (09:41→22:21)
[2018-11-18] MEDS: NON-FORMULARY (Brimonidine Tartrate [Brimonidine Tartrate 0.2%] 1 DROP) OP SCH ×3 (09:41→22:21)
[2018-11-18] MEDS: PRAVACHOL PO SCH (09:43)
[2018-11-18] MEDS: PEPCID PO SCH (09:45)
[2018-11-18] MEDS: COREG PO SCH ×2 (09:45→22:20)
[2018-11-18] MEDS: NEURONTIN PO SCH ×2 (09:45→22:22)
[2018-11-18] MEDS: SODIUM CHLORIDE FLUSH SYRINGE 10 ML IV SCH ×2 (09:50→22:22)
[2018-11-18] MEDS: REQUIP PO SCH ×3 (09:50→20:32)
--- NOTE | 2018-11-18 13:21 | Progress Note ---
Assessment and Plan Assessment and plan: Patient is a 82 yo woman (No prior admission here for review, first visit in our EMR. Also, her is in Hospice for metastatic cancer per son Lauro) with a history of hypertension, dyslipidemia, OA s/p bilateral TKR and possible CHF who presented to [facility] ED with AMS. Apparently, patient was found unresponsive in the bed and seizing. On EMS arrival patient was noted to have a GCS of 3 and was placed on oxygen mask and intubated in the ED on arrival 11/05/18. Initial Temp was noted as 102.2. In the ED patient was intubated due to AMS and Acute Hypoxemic Respiratory Failure, and is unable to protect her airway, Teleneurology consulted in ED. Pt deemed not a candidate for TPA. Initially pCXR on 11/05/18 showed ETT in good position, no other significant findings, CT abd/pelvis without contrast showed mild bibasilar lung atelectasis as well as mildly distended gallbladder with minimal cholelithiasis. 11/10/18 pCXR showed developing Atelectasis and bilateral pleural effusion. Then pCXR on 11/11/18 showed increasing pleural parenchymal opacity LLL. Patient was eventually extubated on 11/11/18 and placed on bipap 50%. Then on 11/13/18 bipap removed in AM and patient transferred out of the ICU to [facility]. * Renal us: Small left renal cyst, negative for obstruction or mass * MRI Head: negative for acute pathology * Culture: Staph homis in blood * MSSA trach culture * CT chest wo contrast 11/11/18 IMPRESSION: Small pleural effusions, left greater than right. Basilar consolidation is probably secondary to atelectasis and less likely pneumonia. The remainder of the lungs appear clear. * 11/07/18 2D ECHO Conclusions: Mild to moderate concentric LVH, est EF 40-45%, left ventricular diastolic filling pattern is c/w pseudonormalization, RVSF mildly reduced, mild TR, small pericardial effusion, circumferential, no evidence of tamponade Acute hypoxic respiratory failure >96 hours, poa: currently extubated on Sunday11/11/18, off Bipap, on high flow and Pulm is following MSSA Sepsis Left Lobar Pneumonia: treated with Abx, ID following. Staph Hominis Bacteremia: Repeat blood cultures negative, ID following Hyperkalemia: treated with kayexalate and monitor bmp closely, Nephrology is following Acute cystitis: treated with Abx, monitor bmp closely Hypertensive Urgency: Resume Coreg, Hydrazine Status Epilepticus, poa: Neurology is following, treat with prn IV ativan Lactic Acidosis, treat with renal failure Hypernatermia resolved: monitor bmp closely Acute Metabolic Encephalopathy Thrombocytopenia; improving, monitor CBC closely ARF due to suspect ATN, poa: Nephrology following. Dysphagia, failed swallow evaluation: dobhuff and speech therapy ICU deconditioning: order pt/ot Bolton removed after 24hr urine collection with a Purex in right EJ removed, midline placed Left arm swollen: venous doppler ordered which was negative for DVT D/C to LTACH once accepted I called [employer] @ then pressed 5, left my number for call back and no one called me back d/w daughter Urmila at bedside History Interval history: Patient was seen and examined. Follow-up on current diagnosis of AMS and respiratory failure. No overnight events reported to me. Imaging, nursing note, chart, labs and old chart reviewed. Moved to [facility] on 11/13/18 from ICU. son Lauro and Daughter, son in law and granddaughter present. Hospitalist Physical - Physical exam Narrative exam: Gen: ill appearing, mild increase in accessory muscles, off bipap on high flow O2, lethargic HEENT: NCAT, EOMI, PERRL, OP Clear Neck: supple, no adenopathy, no thyromegaly, no JVD CVS/Heart: Regular tachycardia normal S1S2, pulses present bilaterally Chest/Lungs: tachypneic, diminished bs bilatearal, Symmetrical chest expansion, good air entry bilaterally GI/Abdomen: soft, NTND, good bowel sounds, no guarding or rebound /Bladder: no suprapubic tenderness, no CVA or paraspinal tenderness Extermity/Skin: dependent edema, pale skin MSK: doesn't follow commands Neuro: CN 2-12 grossly intact, not following commands Psych: calm - Constitutional Vitals: Temp Pulse Resp BP Pulse Ox 98 F 74 16 187/80 98 11/18/18 12:00 11/18/18 12:00 11/18/18 12:00 11/18/18 10:03 11/18/18 12:00 General appearance: Absent: severe distress Results - Labs CBC & Chem 7: 11/15/18 05:30 11/17/18 12:22 Labs: Laboratory Last Values WBC 6.3 K/mm3 (4.5-11.0) 11/15/18 05:30 RBC 3.19 M/mm3 (3.65-5.03) L 11/15/18 05:30 Hgb 9.4 gm/dl (10.1-14.3) L 11/15/18 05:30 Hct 29.3 % (30.3-42.9) L 11/15/18 05:30 MCV 92 fl (79-97) 11/15/18 05:30 MCH 30 pg (28-32) 11/15/18 05:30 MCHC 32 % (30-34) 11/15/18 05:30 RDW 14.6 % (13.2-15.2) 11/15/18 05:30 Plt Count 176 K/mm3 (140-440) 11/15/18 05:30 Lymph % (Auto) 13.4 % (13.4-35.0) 11/10/18 09:52 [place] % (Auto) 14.8 % (0.0-7.3) H 11/10/18 09:52 Eos % (Auto) 1.6 % (0.0-4.3) 11/10/18 09:52 Baso % (Auto) 0.3 % (0.0-1.8) 11/10/18 09:52 Lymph # 0.6 K/mm3 (1.2-5.4) L 11/10/18 09:52 [place] # 0.7 K/mm3 (0.0-0.8) 11/10/18 09:52 Eos # 0.1 K/mm3 (0.0-0.4) 11/10/18 09:52 Baso # 0.0 K/mm3 (0.0-0.1) 11/10/18 09:52 Seg Neutrophils % 69.9 % (40.0-70.0) 11/10/18 09:52 Seg Neutrophils # 3.2 K/mm3 (1.8-7.7) 11/10/18 09:52 PT 15.2 Sec. (12.2-14.9) H 11/11/18 10:03 INR 1.23 (0.87-1.13) H 11/11/18 10:03 APTT 31.8 Sec. (24.2-36.6) 11/11/18 10:03 Heparin Anti-Xa, Unfract Negative (Negative) 11/08/18 13:49 POC ABG pH 7.415 (7.35-7.45) 11/12/18 04:44 POC ABG pCO2 34.0 (35-45) L 11/12/18 04:44 POC ABG pO2 138 (80-105) H 11/12/18 04:44 POC ABG HCO3 21.8 (22-26 mml/L) 11/12/18 04:44 POC ABG Total CO2 23 (23-27mmol/L) 11/12/18 04:44 POC ABG O2 Sat 99 11/12/18 04:44 POC ABG Base Excess -3 ((-2) - (+3)mmol/L) 11/12/18 04:44 30 % 11/12/18 04:44 Sodium 146 mmol/L (137-145) H 11/17/18 12:22 Potassium 4.1 mmol/L (3.6-5.0) 11/17/18 12:22 Chloride 115.1 mmol/L (98-107) H 11/17/18 12:22 Carbon Dioxide 25 mmol/L (22-30) 11/17/18 12:22 10 mmol/L 11/17/18 12:22 BUN 35 mg/dL (7-17) H 11/17/18 12:22 2.0 mg/dL (0.7-1.2) H 11/17/18 12:22 Estimated GFR 24 ml/min 11/17/18 12:22 18 % 11/17/18 12:22 Glucose 142 mg/dL (65-100) H 11/17/18 12:22 POC Glucose 153 (70-105) H 11/18/18 11:39 Lactic Acid 0.70 mmol/L (0.7-2.0) 11/09/18 04:12 Calcium 9.7 mg/dL (8.4-10.2) 11/17/18 12:22 Phosphorus 3.00 mg/dL (2.5-4.5) D 11/08/18 04:27 Magnesium 2.20 mg/dL (1.7-2.3) 11/05/18 16:31 0.40 mg/dL (0.1-1.2) 11/12/18 04:28 AST 27 units/L (5-40) 11/12/18 04:28 ALT 24 units/L (7-56) 11/12/18 04:28 66 units/L (35-129) 11/12/18 04:28 44.0 umol/L (25-60) 11/05/18 17:28 < 7 units/L (30-135) L 11/05/18 16:31 0.019 ng/mL (0.00-0.029) 11/05/18 16:31 3.50 mg/dL (0.00-1.30) H 11/07/18 15:48 5.9 g/dL (6.3-8.2) L 11/12/18 04:28 2.5 g/dL (3.9-5) L 11/12/18 04:28 0.7 % 11/12/18 04:28 See scanned result 11/08/18 13:49 TSH 0.972 mlU/mL (0.270-4.200) 11/05/18 16:31 Yellow (Yellow) 11/05/18 20:47 Slightly-cloudy (Clear) 11/05/18 20:47 5.0 (5.0-7.0) 11/05/18 20:47 Ur Specific [place] 1.016 (1.003-1.030) 11/05/18 20:47 100 mg/dl mg/dL (Negative) 11/05/18 20:47 50 mg/dL (Negative) 11/05/18 20:47 Neg mg/dL (Negative) 11/05/18 20:47 Sm (Negative) 11/05/18 20:47 Pos (Negative) 11/05/18 20:47 Neg (Negative) 11/05/18 20:47 < 2.0 mg/dL (<2.0) 11/05/18 20:47 Ur Leukocyte Esterase Tr (Negative) 11/05/18 20:47 19.0 /HPF (0.0-6.0) H 11/05/18 20:47 4.0 /HPF (0.0-6.0) 11/05/18 20:47 U Epithel Cells (Auto) 1.0 /HPF (0-13.0) 11/05/18 20:47 Few /HPF 11/05/18 20:47 None seen (None Seen) 11/06/18 14:48 2800 ml 11/13/18 11:27 45.0 mg/dL (0.1-20.0) H 11/13/18 11:27 Height (in) 65.0 inches 11/13/18 11:27 Weight (lb) 153.7 lbs 11/13/18 11:27 37 11/13/18 11:27 40 mmol/L 11/06/18 Unknown 68 mg/dL (5-11.8) H 11/06/18 Unknown Clear 11/11/18 Unknown Colorless 11/11/18 Unknown 10 /mm3 (1-10) 11/11/18 Unknown 22 /mm3 (0-0) 11/11/18 Unknown CSF Seg Neutrophils 0 % (0-6) 11/11/18 Unknown 37.8 % (40-80) 11/11/18 Unknown CSF Reactive Lymphs 0 % 11/11/18 Unknown 62.2 % (15-45) 11/11/18 Unknown 0 % 11/11/18 Unknown 0 % 11/11/18 Unknown C 11/11/18 Unknown 77 mg/dL 11/11/18 Unknown 57 mg/dL 11/11/18 Unknown Vancomycin Trough 17.5 ug/mL (5.0-20.0) 11/08/18 21:16 Random Vancomycin 22.4 ug/mL (0-40.0) 11/11/18 05:01 Salicylates < 0.3 mg/dL (2.8-20.0) L 11/05/18 16:31 Acetaminophen < 5.0 ug/mL (10.0-30.0) L 11/05/18 16:31 Plasma/Serum Alcohol < 0.01 % (0-0.07) 11/05/18 16:31 Heparin-induced Plt Ab Negative (Negative) 11/08/18 13:49 UF Heparin High Dose 0 % Release 11/08/18 13:49 KIANNA UFH Low Dose 0.1 0 % Release 11/08/18 13:49 KIANNA UFH Low Dose 0.5 0 % Release 11/08/18 13:49 Active Medications - Current Medications Current Medications: Generic Name Dose Route Start Last Admin Trade Name Freq PRN Reason Stop Dose Admin Acetaminophen 650 mg 11/14/18 10:52 Tylenol PO Q6H PRN Non Cardiac Pain or Temp>100.5 Albuterol 2.5 mg 11/05/18 17:52 11/12/18 20:15 Proventil IH 2.5 mg Q3HRT PRN Administration Shortness Of Breath Lipase/Protease/Amylase 1 each 11/16/18 07:34 Pancreaze 10,500 Unit FEEDTUBE PRN PRN For Clogged Feeding Tube Carvedilol 6.25 mg 11/09/18 11:00 11/18/18 09:45 Coreg PO 6.25 mg BID NIKKO Administration Dextrose 50 ml 11/05/18 17:59 D50w (25gm) Syringe IV PRN PRN Hypoglycemia Famotidine 20 mg 11/11/18 10:00 11/18/18 09:45 Pepcid PO 20 mg DAILY NIKKO Administration Gabapentin 800 mg 11/08/18 10:00 11/18/18 09:45 Neurontin PO 800 mg BID NIKKO Administration Hydralazine HCl 10 mg 11/05/18 21:30 11/17/18 06:15 Apresoline IV 10 mg Q6HR PRN Administration Hypertension Hydrophilic Ointment 1 applic 11/05/18 16:21 Vaseline Lip Therapy TP Q2HR PRN Dry Lips Dextrose/Sodium Chloride 1,000 mls @ 50 mls/hr 11/15/18 13:00 11/17/18 06:19 D5/0.45ns IV 50 mls/hr DIRECT NIKKO Administration Insulin Human Lispro 0 unit 11/06/18 12:00 11/18/18 11:57 Humalog SUB-Q 1 unit Q6HR NIKKO Administration Protocol Latanoprost 1 drops 11/08/18 18:00 11/17/18 17:41 Latanoprost 0.005% OU 1 drops QPM NIKKO Administration Miscellaneous Medication 1 drop 11/08/18 22:00 11/18/18 09:41 Brimonidine Tartate OP Not Given BID NIKKO Miscellaneous Medication 1 drop 11/16/18 22:00 11/18/18 09:41 Brimonidine Tartrate [Brimonidine Tartrate 0.2%] OP 1 drop BID NIKKO Administration Morphine Sulfate 1 mg 11/14/18 10:52 11/15/18 09:27 Morphine IV 1 mg Q4H PRN Administration Pain , Severe (7-10) Multi-Ingred Cream/Lotion/Oil/Oint 1 applic 11/05/18 16:21 Artificial Tears Ophth Oint OU Q4HR PRN Dry Eye(s) Pravastatin Sodium 20 mg 11/08/18 10:00 11/18/18 09:43 Pravachol PO 20 mg DAILY NIKKO Administration Ropinirole HCl 1 mg 11/08/18 09:00 11/18/18 13:09 Requip PO 1 mg TID NIKKO Administration Simple Syrup 15 ml 11/16/18 07:34 Simple Syrup FEEDTUBE PRN PRN Hypoglycemia Simple Syrup 30 ml 11/16/18 07:34 Simple Syrup FEEDTUBE PRN PRN Hypoglycemia Sodium Bicarbonate 325 mg 11/16/18 07:34 Sodium Bicarbonate FEEDTUBE PRN PRN For Clogged Feeding Tube Sodium Chloride 10 ml 11/05/18 22:00 11/18/18 09:50 Sodium Chloride Flush Syringe 10 Ml IV 10 ml BID NIKKO Administration Sodium Chloride 10 ml 11/05/18 17:52 Sodium Chloride Flush Syringe 10 Ml IV PRN PRN LINE FLUSH Nutrition/Malnutrition Assess - Dietary Evaluation Nutrition/Malnutrition Findings: Nutrition Notes Start: 11/06/18 16:18 Freq: Status: Active Protocol: Document 11/16/18 11:56 LP (Rec: 11/16/18 11:57 LP [email or web address]) Nutrition Notes Need for Assessment generated from: MD Order Initial or Follow up Brief Note Subjective/Other Information Consult for TF. Burn Absent Trauma Absent Nutrition Intervention Nutrition Support: Nepro at 30ml/hr Flush with 250 ml q4h until hypernatremia resolves Flush with 130 mls q4h once hyperntreamia resolves Follow-Up By: 11/19/18 Additional Comments Follow for TF restart
--- NOTE | 2018-11-18 15:57 | Progress Note ---
Assessment and Plan Acute Renal Failure likely secondary to ischemic ATN, no obstruction: Hypokalemia: Hypernatremia: -Labs pending today -Baseline serum creatinine unknown -On D5 0.45% NS infusion at 50 ml/hr -Renal US is negative for obstruction -Monitor I/O's -Avoid nephrotoxic agents -Bolton Catheter: No (Purewick) -Renal plan d/w Dr Avendano Sepsis: -ID evaluated pt, s/p Abx Acute encephalopathy: Possible Seizures -Neurology evaluated pt, f/u recs Acute Hypoxic Respiratory Failure: -On HFNC oxygen Subjective Date of service: 11/18/18 Principal diagnosis: Ac hypoxemic Resp Failure ; Possible Seizure; Ac. Met Encephalopathy; BRAD Interval history: Pt seen in bed on HFNC oxygen 35%, denies shortness of breath, no acute distr ess. No family at bedside Objective - Vital Signs Vital signs: Vital Signs - 12hr 11/18/18 11/18/18 11/18/18 04:00 05:00 06:00 Temperature 97.9 F Pulse Rate 83 80 80 Pulse Rate [ 76 From Monitor] Respiratory 16 13 16 Rate Blood Pressure 147/45 149/52 156/52 O2 Sat by Pulse 95 96 97 Oximetry 11/18/18 11/18/18 11/18/18 07:00 07:38 08:00 Temperature 97.9 F Pulse Rate 80 79 Pulse Rate [ 74 From Monitor] Respiratory 15 13 Rate Blood Pressure 152/67 155/62 O2 Sat by Pulse 97 98 Oximetry 11/18/18 11/18/18 11/18/18 09:00 09:44 09:45 Temperature Pulse Rate 85 83 Pulse Rate [ From Monitor] Respiratory 12 Rate Blood Pressure 172/78 167/85 O2 Sat by Pulse 92 97 Oximetry 11/18/18 11/18/18 11/18/18 10:03 11:01 12:00 Temperature 98 F Pulse Rate 80 78 Pulse Rate [ 74 From Monitor] Respiratory 19 11 L Rate Blood Pressure 187/80 146/84 146/84 O2 Sat by Pulse 97 98 99 Oximetry 11/18/18 11/18/18 13:01 14:01 Temperature Pulse Rate 79 81 Pulse Rate [ From Monitor] Respiratory 13 13 Rate Blood Pressure 153/68 170/68 O2 Sat by Pulse 99 100 Oximetry - General Appearance General appearance: other (awake, alert, no acute distress) EENT: ATNC Neck: no JVD Respiratory: Present: Decreased Breath Sounds Cardiology: regular, S1S2 Gastrointestinal: normoactive bowel sounds (Dobhoff tube in place) Integumentary: warm and dry Neurologic: alert and oriented x3 Musculoskeletal: other (no edema to BLE) Psychiatric: cooperative - Lab 11/15/18 05:30 11/17/18 12:22 Most recent lab results Calcium 9.7 mg/dL (8.4-10.2) 11/17/18 12:22 Phosphorus 3.00 mg/dL (2.5-4.5) D 11/08/18 04:27 Magnesium 2.20 mg/dL (1.7-2.3) 11/05/18 16:31 45.0 mg/dL (0.1-20.0) H 11/13/18 11:27 40 mmol/L 11/06/18 Unknown 68 mg/dL (5-11.8) H 11/06/18 Unknown Medications & Allergies - Medications Allergies/Adverse Reactions: Allergies aspirin Allergy (Verified 11/06/18 17:06) Unknown Home Medications: Home Medications Medication Instructions Recorded Confirmed Last Taken Type Carvedilol [Coreg] 25 mg PO BID 11/06/18 11/06/18 Unknown History Furosemide [Lasix TAB] 20 mg PO HS 11/06/18 11/06/18 Unknown History Furosemide [Lasix TAB] 40 mg PO QAM 11/06/18 11/06/18 Unknown History Gabapentin [Neurontin] 800 mg PO BID 11/06/18 11/06/18 Unknown History Pravastatin Sodium [Pravastatin] 20 mg PO DAILY 11/06/18 11/06/18 Unknown History Ropinirole HCl [Requip] 1 mg PO TID 11/06/18 11/06/18 Unknown History Brimonidine Tartrate [Brimonidine 1 drop OU BID 11/08/18 11/08/18 Unknown History Tartrate 0.2%] Active Medications: Generic Name Dose Route Start Last Admin Trade Name Freq PRN Reason Stop Dose Admin Acetaminophen 650 mg 11/14/18 10:52 Tylenol PO Q6H PRN Non Cardiac Pain or Temp>100.5 Albuterol 2.5 mg 11/05/18 17:52 11/12/18 20:15 Proventil IH 2.5 mg Q3HRT PRN Administration Shortness Of Breath Lipase/Protease/Amylase 1 each 11/16/18 07:34 Pancredoris Cruz 10,500 Unit FEEDTUBE PRN PRN For Clogged Feeding Tube Carvedilol 6.25 mg 11/09/18 11:00 11/18/18 09:45 Coreg PO 6.25 mg BID NIKKO Administration Dextrose 50 ml 11/05/18 17:59 D50w (25gm) Syringe IV PRN PRN Hypoglycemia Famotidine 20 mg 11/11/18 10:00 11/18/18 09:45 Pepcid PO 20 mg DAILY NIKKO Administration Gabapentin 800 mg 11/08/18 10:00 11/18/18 09:45 Neurontin PO 800 mg BID NIKKO Administration Hydralazine HCl 10 mg 11/05/18 21:30 11/17/18 06:15 Apresoline IV 10 mg Q6HR PRN Administration Hypertension Hydrophilic Ointment 1 applic 11/05/18 16:21 Vaseline Lip Therapy TP Q2HR PRN Dry Lips Dextrose/Sodium Chloride 1,000 mls @ 50 mls/hr 11/15/18 13:00 11/17/18 06:19 D5/0.45ns IV 50 mls/hr DIRECT NIKKO Administration Insulin Human Lispro 0 unit 11/06/18 12:00 11/18/18 11:57 Humalog SUB-Q 1 unit Q6HR NIKKO Administration Protocol Latanoprost 1 drops 11/08/18 18:00 11/17/18 17:41 Latanoprost 0.005% OU 1 drops QPM NIKKO Administration Miscellaneous Medication 1 drop 11/08/18 22:00 11/18/18 09:41 Brimonidine Tartate OP Not Given BID NIKKO Miscellaneous Medication 1 drop 11/16/18 22:00 11/18/18 09:41 Brimonidine Tartrate [Brimonidine Tartrate 0.2%] OP 1 drop BID NIKKO Administration Morphine Sulfate 1 mg 11/14/18 10:52 11/15/18 09:27 Morphine IV 1 mg Q4H PRN Administration Pain , Severe (7-10) Multi-Ingred Cream/Lotion/Oil/Oint 1 applic 11/05/18 16:21 Artificial Tears Ophth Oint OU Q4HR PRN Dry Eye(s) Pravastatin Sodium 20 mg 11/08/18 10:00 11/18/18 09:43 Pravachol PO 20 mg DAILY NIKKO Administration Ropinirole HCl 1 mg 11/08/18 09:00 11/18/18 13:09 Requip PO 1 mg TID NIKKO Administration Simple Syrup 15 ml 11/16/18 07:34 Simple Syrup FEEDTUBE PRN PRN Hypoglycemia Simple Syrup 30 ml 11/16/18 07:34 Simple Syrup FEEDTUBE PRN PRN Hypoglycemia Sodium Bicarbonate 325 mg 11/16/18 07:34 Sodium Bicarbonate FEEDTUBE PRN PRN For Clogged Feeding Tube Sodium Chloride 10 ml 11/05/18 22:00 11/18/18 09:50 Sodium Chloride Flush Syringe 10 Ml IV 10 ml BID NIKKO Administration Sodium Chloride 10 ml 11/05/18 17:52 Sodium Chloride Flush Syringe 10 Ml IV PRN PRN LINE FLUSH
[2018-11-18 16:51] LABS: Hematocrit 25.7 % (30.3-42.9); Hemoglobin 8.4 gm/dl (10.1-14.3); Mean Corpuscular HGB Conc 33 % (30-34); Mean Corpuscular Volume 90 fl (79-97); Platelet Count 159 K/mm3 (140-440); Red Blood Count 2.85 M/mm3 (3.65-5.03); Red Cell Distribution Width 14.6 % (13.2-15.2)
[2018-11-18 17:07] LABS: Calcium 9.7 mg/dL (8.4-10.2)
[2018-11-18] MEDS: LATANOPROST 0.005% OU SCH (17:35)
--- NOTE | 2018-11-18 17:51 | Progress Note ---
Assessment and Plan Patient sleeping but arousable. Patient resting on vapotherm FIO2 35%. O2 satuaration 99%. Patient weak . No acute respiratory distress at rest. - Patient Problems (1) Respiratory failure Current Visit: Yes Status: Acute Qualifiers: Chronicity: acute Respiratory failure complication: unspecified whether with hypoxia or hypercapnia Qualified Code(s): J96.00 - Acute respiratory failure, unspecified whether with hypoxia or hypercapnia Plan to address problem: slowly taper O2 to keep saturation above 92%. Albuterol/atrovent aerosol treatments q 6 hours. SCDs Continue famotidine. (2) Seizure Current Visit: Yes Status: Acute Plan to address problem: Management as per primary care and neurology. (3) Sepsis Current Visit: Yes Status: Acute Qualifiers: Sepsis type: sepsis due to unspecified organism Qualified Code(s): A41.9 - Sepsis, unspecified organism Plan to address problem: Staph Hominis bacteremia Patient afebrile. No leukocytosis. Patient not on any antibiotics. Management as per primary care and infectious diseases. (4) ARF (acute renal failure) Current Visit: Yes Status: Acute Qualifiers: Acute renal failure type: with acute tubular necrosis Qualified Code(s): N17.0 - Acute kidney failure with tubular necrosis Plan to address problem: Management as per nephrology. (5) Acidosis Current Visit: Yes Status: Acute Plan to address problem: Improved. (6) Encephalopathy Current Visit: Yes Status: Acute Plan to address problem: Management as per primary care and neurology. Subjective Date of service: 11/18/18 Principal diagnosis: Ac hypoxemic Resp Failure ; Possible Seizure; Ac. Met Encephalopathy; BRAD Interval history: Patient sleeping but arousable. Patient resting on vapotherm FIO2 35%. O2 satuaration 99%. Patient weak . No acute respiratory distress at rest. Objective Vital Signs - 12hr 11/18/18 11/18/18 11/18/18 06:00 07:00 07:38 Temperature 97.9 F Pulse Rate 80 80 Pulse Rate [ From Monitor] Respiratory 16 15 Rate Blood Pressure 156/52 152/67 O2 Sat by Pulse 97 97 Oximetry 11/18/18 11/18/18 11/18/18 08:00 09:00 09:44 Temperature Pulse Rate 79 85 Pulse Rate [ 74 From Monitor] Respiratory 13 12 Rate Blood Pressure 155/62 172/78 O2 Sat by Pulse 98 92 97 Oximetry 11/18/18 11/18/18 11/18/18 09:45 10:03 11:01 Temperature Pulse Rate 83 80 Pulse Rate [ From Monitor] Respiratory 19 Rate Blood Pressure 167/85 187/80 146/84 O2 Sat by Pulse 97 98 Oximetry 11/18/18 11/18/18 11/18/18 12:00 13:01 14:01 Temperature 98 F Pulse Rate 78 79 81 Pulse Rate [ 74 From Monitor] Respiratory 11 L 13 13 Rate Blood Pressure 146/84 153/68 170/68 O2 Sat by Pulse 99 99 100 Oximetry 11/18/18 16:00 Temperature 97.2 F L Pulse Rate Pulse Rate [ 82 From Monitor] Respiratory 15 Rate Blood Pressure O2 Sat by Pulse 98 Oximetry Constitutional: no acute distress, asleep Eyes: non-icteric ENT: oropharynx moist Neck: supple, no lymphadenopathy, no JVD, other (no thyromegaly) Effort: mildly labored Ascultation: Bilateral: diminished breath sounds, rhonchi (bases) Percussion: Bilateral: not dull Cardiovascular: regular rate and rhythm, murmur noted (systolic), other Gastrointestinal: normoactive bowel sounds, soft, non-tender, non-distended Integumentary: normal Extremities: no cyanosis, no edema, pink and warm, pulses normal, no ischemia or petechiae Neurologic: non-focal exam (moves all extremities, obeys onse step commands), pupils equal and round Psychiatric: mood appropriate, affect normal CBC and BMP: 11/18/18 16:22 11/18/18 16:22 ABG, PT/INR, D-dimer: ABG POC ABG pH 7.415 (7.35-7.45) 11/12/18 04:44 POC ABG pCO2 34.0 (35-45) L 11/12/18 04:44 POC ABG pO2 138 (80-105) H 11/12/18 04:44 POC ABG HCO3 21.8 (22-26 mml/L) 11/12/18 04:44 POC ABG Total CO2 23 (23-27mmol/L) 11/12/18 04:44 POC ABG O2 Sat 99 11/12/18 04:44 PT/INR, D-dimer PT 15.2 Sec. (12.2-14.9) H 11/11/18 10:03 INR 1.23 (0.87-1.13) H 11/11/18 10:03 Abnormal lab findings: Abnormal Labs 11/05/18 11/05/18 11/05/18 16:31 16:31 16:31 WBC RBC Hgb Hct Plt Count 139 L [place] % (Auto) Lymph # 0.7 L Seg Neutrophils % 78.8 H PT INR POC ABG pH POC ABG pCO2 POC ABG pO2 Sodium 148 H Potassium 3.2 L Chloride 110.6 H Carbon Dioxide 17 L BUN 18 H Creatinine 1.9 H Glucose 205 H POC Glucose Lactic Acid 8.20 H* Calcium 10.9 H Phosphorus Total Creatine Kinase C-Reactive Protein Total Protein Albumin 3.6 L Urine WBC (Auto) Urine Creatinine Urine Total Protein Salicylates Acetaminophen 11/05/18 11/05/18 11/05/18 16:31 16:31 16:31 WBC RBC Hgb Hct Plt Count [place] % (Auto) Lymph # Seg Neutrophils % PT INR POC ABG pH POC ABG pCO2 POC ABG pO2 Sodium Potassium Chloride Carbon Dioxide BUN Creatinine Glucose POC Glucose Lactic Acid Calcium Phosphorus Total Creatine Kinase < 7 L C-Reactive Protein Total Protein Albumin Urine WBC (Auto) Urine Creatinine Urine Total Protein Salicylates < 0.3 L Acetaminophen < 5.0 L 11/05/18 11/05/18 11/05/18 17:29 17:42 20:47 WBC RBC Hgb Hct Plt Count [place] % (Auto) Lymph # Seg Neutrophils % PT INR POC ABG pH POC ABG pCO2 33.4 L POC ABG pO2 136 H Sodium Potassium Chloride Carbon Dioxide BUN Creatinine Glucose POC Glucose Lactic Acid 3.30 H* Calcium Phosphorus Total Creatine Kinase C-Reactive Protein Total Protein Albumin Urine WBC (Auto) 19.0 H Urine Creatinine Urine Total Protein Salicylates Acetaminophen 11/05/18 11/05/18 11/06/18 20:47 22:42 04:09 WBC 4.4 L RBC Hgb Hct Plt Count 102 L [place] % (Auto) 13.2 H Lymph # 1.0 L Seg Neutrophils % PT INR POC ABG pH POC ABG pCO2 POC ABG pO2 Sodium Potassium Chloride Carbon Dioxide BUN Creatinine Glucose POC Glucose 121 H Lactic Acid Calcium Phosphorus Total Creatine Kinase C-Reactive Protein Total Protein Albumin Urine WBC (Auto) Urine Creatinine 166.9 H Urine Total Protein Salicylates Acetaminophen 11/06/18 11/06/18 11/06/18 04:09 05:05 07:31 WBC RBC Hgb Hct Plt Count [place] % (Auto) Lymph # Seg Neutrophils % PT INR POC ABG pH 7.509 H POC ABG pCO2 < 30 L POC ABG pO2 115 H Sodium 150 H Potassium 2.7 L* Chloride 118.2 H Carbon Dioxide 21 L BUN 21 H Creatinine 1.6 H Glucose 125 H POC Glucose Lactic Acid 2.50 H* Calcium Phosphorus Total Creatine Kinase C-Reactive Protein Total Protein 5.7 L Albumin 3.1 L Urine WBC (Auto) Urine Creatinine Urine Total Protein Salicylates Acetaminophen 11/06/18 11/06/18 11/06/18 12:04 16:21 18:04 WBC RBC Hgb Hct Plt Count [place] % (Auto) Lymph # Seg Neutrophils % PT INR POC ABG pH POC ABG pCO2 POC ABG pO2 Sodium Potassium 5.4 H D Chloride Carbon Dioxide BUN Creatinine Glucose POC Glucose 122 H 110 H Lactic Acid Calcium Phosphorus Total Creatine Kinase C-Reactive Protein Total Protein Albumin Urine WBC (Auto) Urine Creatinine Urine Total Protein Salicylates Acetaminophen 11/06/18 11/06/18 11/07/18 21:28 Unknown 04:02 WBC RBC Hgb Hct Plt Count [place] % (Auto) Lymph # Seg Neutrophils % PT INR POC ABG pH POC ABG pCO2 POC ABG pO2 Sodium 152 H Potassium Chloride 123.4 H Carbon Dioxide 20 L BUN 23 H Creatinine 1.5 H Glucose 111 H POC Glucose 125 H Lactic Acid Calcium Phosphorus 1.00 L Total Creatine Kinase C-Reactive Protein Total Protein Albumin Urine WBC (Auto) Urine Creatinine 155.8 H Urine Total Protein 68 H Salicylates Acetaminophen 11/07/18 11/07/18 11/07/18 09:07 11:05 15:48 WBC 4.1 L RBC 3.62 L Hgb Hct Plt Count 77 L [place] % (Auto) Lymph # Seg Neutrophils % PT INR POC ABG pH 7.314 L POC ABG pCO2 POC ABG pO2 Sodium Potassium Chloride Carbon Dioxide BUN Creatinine Glucose POC Glucose Lactic Acid Calcium Phosphorus Total Creatine Kinase C-Reactive Protein 3.50 H Total Protein Albumin Urine WBC (Auto) Urine Creatinine Urine Total Protein Salicylates Acetaminophen 11/08/18 11/08/18 11/08/18 04:27 05:29 12:27 WBC RBC Hgb Hct Plt Count [place] % (Auto) Lymph # Seg Neutrophils % PT INR POC ABG pH POC ABG pCO2 33.4 L POC ABG pO2 78 L Sodium 146 H Potassium Chloride 117.1 H Carbon Dioxide 18 L BUN 19 H Creatinine 1.6 H Glucose 111 H POC Glucose 108 H Lactic Acid Calcium Phosphorus Total Creatine Kinase C-Reactive Protein Total Protein Albumin Urine WBC (Auto) Urine Creatinine Urine Total Protein Salicylates Acetaminophen 11/08/18 11/08/18 11/08/18 12:27 18:11 23:50 WBC RBC Hgb Hct Plt Count [place] % (Auto) Lymph # Seg Neutrophils % PT INR POC ABG pH POC ABG pCO2 POC ABG pO2 Sodium Potassium Chloride Carbon Dioxide BUN Creatinine Glucose POC Glucose 188 H 126 H 149 H Lactic Acid Calcium Phosphorus Total Creatine Kinase C-Reactive Protein Total Protein Albumin Urine WBC (Auto) Urine Creatinine Urine Total Protein Salicylates Acetaminophen 11/09/18 11/09/18 11/09/18 03:32 04:12 04:12 WBC 3.6 L RBC 2.99 L Hgb 8.8 L Hct 26.9 L Plt Count 81 L [place] % (Auto) Lymph # Seg Neutrophils % PT INR POC ABG pH 7.329 L POC ABG pCO2 POC ABG pO2 Sodium Potassium Chloride 114.8 H Carbon Dioxide 20 L BUN 28 H Creatinine 1.9 H Glucose 144 H POC Glucose Lactic Acid Calcium 8.2 L Phosphorus Total Creatine Kinase C-Reactive Protein Total Protein Albumin Urine WBC (Auto) Urine Creatinine Urine Total Protein Salicylates Acetaminophen 11/09/18 11/09/18 11/09/18 05:24 12:59 17:59 WBC RBC Hgb Hct Plt Count [place] % (Auto) Lymph # Seg Neutrophils % PT INR POC ABG pH POC ABG pCO2 POC ABG pO2 Sodium Potassium Chloride Carbon Dioxide BUN Creatinine Glucose POC Glucose 163 H 175 H 116 H Lactic Acid Calcium Phosphorus Total Creatine Kinase C-Reactive Protein Total Protein Albumin Urine WBC (Auto) Urine Creatinine Urine Total Protein Salicylates Acetaminophen 11/10/18 11/10/18 11/10/18 00:45 03:57 06:45 WBC RBC Hgb Hct Plt Count [place] % (Auto) Lymph # Seg Neutrophils % PT INR POC ABG pH 7.332 L POC ABG pCO2 POC ABG pO2 Sodium Potassium Chloride Carbon Dioxide BUN Creatinine Glucose POC Glucose 201 H 148 H Lactic Acid Calcium Phosphorus Total Creatine Kinase C-Reactive Protein Total Protein Albumin Urine WBC (Auto) Urine Creatinine Urine Total Protein Salicylates Acetaminophen 11/10/18 11/10/18 11/10/18 09:52 09:52 12:36 WBC RBC 3.48 L Hgb Hct Plt Count 103 L [place] % (Auto) 14.8 H Lymph # 0.6 L Seg Neutrophils % PT INR POC ABG pH POC ABG pCO2 POC ABG pO2 Sodium Potassium Chloride 109.3 H Carbon Dioxide 21 L BUN 36 H Creatinine 2.1 H Glucose 134 H POC Glucose 142 H Lactic Acid Calcium Phosphorus Total Creatine Kinase C-Reactive Protein Total Protein Albumin Urine WBC (Auto) Urine Creatinine Urine Total Protein Salicylates Acetaminophen 11/10/18 11/10/18 11/11/18 17:31 23:34 05:01 WBC 4.1 L RBC 3.11 L Hgb 9.1 L Hct 27.7 L Plt Count 97 L [place] % (Auto) Lymph # Seg Neutrophils % PT INR POC ABG pH POC ABG pCO2 POC ABG pO2 Sodium Potassium Chloride Carbon Dioxide BUN Creatinine Glucose POC Glucose 152 H 163 H Lactic Acid Calcium Phosphorus Total Creatine Kinase C-Reactive Protein Total Protein Albumin Urine WBC (Auto) Urine Creatinine Urine Total Protein Salicylates Acetaminophen 11/11/18 11/11/18 11/11/18 05:01 05:34 10:03 WBC RBC Hgb Hct Plt Count [place] % (Auto) Lymph # Seg Neutrophils % PT 15.2 H INR 1.23 H POC ABG pH POC ABG pCO2 POC ABG pO2 Sodium Potassium 5.3 H Chloride 108.2 H Carbon Dioxide 21 L BUN 39 H Creatinine 2.2 H Glucose 155 H POC Glucose 159 H Lactic Acid Calcium Phosphorus Total Creatine Kinase C-Reactive Protein Total Protein Albumin Urine WBC (Auto) Urine Creatinine Urine Total Protein Salicylates Acetaminophen 11/11/18 11/11/18 11/11/18 12:36 17:00 17:25 WBC RBC Hgb Hct Plt Count [place] % (Auto) Lymph # Seg Neutrophils % PT INR POC ABG pH POC ABG pCO2 POC ABG pO2 121 H Sodium Potassium Chloride Carbon Dioxide BUN Creatinine Glucose POC Glucose 147 H 116 H Lactic Acid Calcium Phosphorus Total Creatine Kinase C-Reactive Protein Total Protein Albumin Urine WBC (Auto) Urine Creatinine Urine Total Protein Salicylates Acetaminophen 11/11/18 11/11/18 11/12/18 20:33 23:46 04:28 WBC RBC 3.26 L Hgb 9.6 L Hct 29.2 L Plt Count 126 L [place] % (Auto) Lymph # Seg Neutrophils % PT INR POC ABG pH 7.247 L POC ABG pCO2 53.6 H POC ABG pO2 Sodium Potassium Chloride Carbon Dioxide BUN Creatinine Glucose POC Glucose 130 H Lactic Acid Calcium Phosphorus Total Creatine Kinase C-Reactive Protein Total Protein Albumin Urine WBC (Auto) Urine Creatinine Urine Total Protein Salicylates Acetaminophen 11/12/18 11/12/18 11/13/18 04:28 04:44 04:49 WBC RBC 2.89 L Hgb 8.6 L Hct 25.7 L Plt Count 133 L [place] % (Auto) Lymph # Seg Neutrophils % PT INR POC ABG pH POC ABG pCO2 34.0 L POC ABG pO2 138 H Sodium Potassium 5.2 H Chloride 109.9 H Carbon Dioxide 20 L BUN 40 H Creatinine 2.2 H Glucose 112 H POC Glucose Lactic Acid Calcium Phosphorus Total Creatine Kinase C-Reactive Protein Total Protein 5.9 L Albumin 2.5 L Urine WBC (Auto) Urine Creatinine Urine Total Protein Salicylates Acetaminophen 11/13/18 11/13/18 11/14/18 04:49 11:27 04:19 WBC RBC 3.32 L Hgb 9.7 L Hct 29.8 L Plt Count [place] % (Auto) Lymph # Seg Neutrophils % PT INR POC ABG pH POC ABG pCO2 POC ABG pO2 Sodium Potassium 5.1 H Chloride 113.7 H Carbon Dioxide 21 L BUN 44 H Creatinine 2.3 H Glucose POC Glucose Lactic Acid Calcium Phosphorus Total Creatine Kinase C-Reactive Protein Total Protein Albumin Urine WBC (Auto) Urine Creatinine 45.0 H Urine Total Protein Salicylates Acetaminophen 11/14/18 11/14/18 11/15/18 04:19 17:45 04:00 WBC RBC Hgb Hct Plt Count [place] % (Auto) Lymph # Seg Neutrophils % PT INR POC ABG pH POC ABG pCO2 POC ABG pO2 Sodium 147 H 150 H Potassium Chloride 114.8 H 118.9 H Carbon Dioxide 18 L 18 L BUN 44 H 45 H Creatinine 2.2 H 2.3 H Glucose POC Glucose 68 L Lactic Acid Calcium Phosphorus Total Creatine Kinase C-Reactive Protein Total Protein Albumin Urine WBC (Auto) Urine Creatinine Urine Total Protein Salicylates Acetaminophen 11/15/18 11/16/18 11/16/18 05:30 00:03 01:19 WBC RBC 3.19 L Hgb 9.4 L Hct 29.3 L Plt Count [place] % (Auto) Lymph # Seg Neutrophils % PT INR POC ABG pH POC ABG pCO2 POC ABG pO2 Sodium Potassium Chloride Carbon Dioxide BUN Creatinine Glucose POC Glucose 122 H 115 H Lactic Acid Calcium Phosphorus Total Creatine Kinase C-Reactive Protein Total Protein Albumin Urine WBC (Auto) Urine Creatinine Urine Total Protein Salicylates Acetaminophen 11/16/18 11/16/18 11/16/18 05:07 11:07 12:13 WBC RBC Hgb Hct Plt Count [place] % (Auto) Lymph # Seg Neutrophils % PT INR POC ABG pH POC ABG pCO2 POC ABG pO2 Sodium 151 H Potassium Chloride 119.5 H Carbon Dioxide BUN 39 H Creatinine 2.2 H Glucose 123 H POC Glucose 110 H 146 H Lactic Acid Calcium Phosphorus Total Creatine Kinase C-Reactive Protein Total Protein Albumin Urine WBC (Auto) Urine Creatinine Urine Total Protein Salicylates Acetaminophen 11/16/18 11/17/18 11/17/18 18:02 00:00 05:51 WBC RBC Hgb Hct Plt Count [place] % (Auto) Lymph # Seg Neutrophils % PT INR POC ABG pH POC ABG pCO2 POC ABG pO2 Sodium Potassium Chloride Carbon Dioxide BUN Creatinine Glucose POC Glucose 129 H 111 H 137 H Lactic Acid Calcium Phosphorus Total Creatine Kinase C-Reactive Protein Total Protein Albumin Urine WBC (Auto) Urine Creatinine Urine Total Protein Salicylates Acetaminophen 11/17/18 11/17/18 11/17/18 12:01 12:22 17:45 WBC RBC Hgb Hct Plt Count [place] % (Auto) Lymph # Seg Neutrophils % PT INR POC ABG pH POC ABG pCO2 POC ABG pO2 Sodium 146 H Potassium Chloride 115.1 H Carbon Dioxide BUN 35 H Creatinine 2.0 H Glucose 142 H POC Glucose 139 H 132 H Lactic Acid Calcium Phosphorus Total Creatine Kinase C-Reactive Protein Total Protein Albumin Urine WBC (Auto) Urine Creatinine Urine Total Protein Salicylates Acetaminophen 11/18/18 11/18/18 11/18/18 00:11 05:32 11:39 WBC RBC Hgb Hct Plt Count [place] % (Auto) Lymph # Seg Neutrophils % PT INR POC ABG pH POC ABG pCO2 POC ABG pO2 Sodium Potassium Chloride Carbon Dioxide BUN Creatinine Glucose POC Glucose 159 H 140 H 153 H Lactic Acid Calcium Phosphorus Total Creatine Kinase C-Reactive Protein Total Protein Albumin Urine WBC (Auto) Urine Creatinine Urine Total Protein Salicylates Acetaminophen 11/18/18 11/18/18 16:22 16:22 WBC RBC 2.85 L Hgb 8.4 L Hct 25.7 L Plt Count [place] % (Auto) Lymph # Seg Neutrophils % PT INR POC ABG pH POC ABG pCO2 POC ABG pO2 Sodium Potassium Chloride 110.7 H Carbon Dioxide BUN 30 H Creatinine 1.7 H Glucose 145 H POC Glucose Lactic Acid Calcium Phosphorus Total Creatine Kinase C-Reactive Protein Total Protein Albumin Urine WBC (Auto) Urine Creatinine Urine Total Protein Salicylates Acetaminophen Chest x-ray: report reviewed (Increased pleural parenchymal opacity left lung.), image reviewed Allied health notes reviewed: nursing
[2018-11-18] MEDS: D5/0.45NS 1,000 ML IV SCH (20:32)
[2018-11-19] MEDS: HumaLOG SUB-Q SCH ×4 (01:24→18:30)
[2018-11-19 05:34] LABS: Hematocrit 26.5 % (30.3-42.9); Hemoglobin 8.5 gm/dl (10.1-14.3); Mean Corpuscular HGB Conc 32 % (30-34); Mean Corpuscular Volume 90 fl (79-97); Platelet Count 159 K/mm3 (140-440); Red Blood Count 2.94 M/mm3 (3.65-5.03); Red Cell Distribution Width 14.5 % (13.2-15.2)
[2018-11-19 05:47] LABS: Calcium 9.6 mg/dL (8.4-10.2)
[2018-11-19] MEDS: REQUIP PO SCH ×3 (08:19→20:34)
[2018-11-19] MEDS: NON-FORMULARY (Brimonidine Tartrate [Brimonidine Tartrate 0.2%] 1 DROP) OP SCH (10:07)
[2018-11-19] MEDS: COREG PO SCH ×2 (10:08→22:35)
[2018-11-19] MEDS: NEURONTIN PO SCH ×2 (10:08→22:35)
[2018-11-19] MEDS: BRIMONIDINE OP SCH (10:08)
[2018-11-19] MEDS: PEPCID PO SCH (10:09)
[2018-11-19] MEDS: PRAVACHOL PO SCH (10:09)
[2018-11-19] MEDS: SODIUM CHLORIDE FLUSH SYRINGE 10 ML IV SCH ×2 (10:11→22:09)
--- NOTE | 2018-11-19 11:58 | Progress Note ---
Assessment and Plan Acute Renal Failure likely secondary to ischemic ATN, no obstruction: Hypokalemia: Hypernatremia: -stable kidney function good UOP -Baseline serum creatinine unknown -On D5 0.45% NS infusion at 50 ml/hr -Renal US is negative for obstruction -Monitor I/O's -Avoid nephrotoxic agents -[place] Catheter: No (Purewick) Sepsis: -ID evaluated pt, s/p Abx Acute encephalopathy: Possible Seizures -Neurology evaluated pt, f/u recs Acute Hypoxic Respiratory Failure: -On HFNC oxygen will sign off, please re-consult if needed Subjective Date of service: 11/19/18 Principal diagnosis: Ac hypoxemic Resp Failure ; Possible Seizure; Ac. Met Encephalopathy; BRAD Interval history: feels better, requesting to go home, family at bedside, all questions answered Objective - Vital Signs Vital signs: Vital Signs - 12hr 11/19/18 11/19/18 11/19/18 00:00 00:01 00:20 Temperature Pulse Rate 83 93 H 85 Pulse Rate [ 83 From Monitor] Respiratory 12 14 14 Rate Blood Pressure 152/66 O2 Sat by Pulse 95 96 97 Oximetry 11/19/18 11/19/18 11/19/18 02:00 04:00 07:43 Temperature 98.4 F Pulse Rate 84 Pulse Rate [ 84 From Monitor] Respiratory 16 Rate Blood Pressure O2 Sat by Pulse 95 96 96 Oximetry 11/19/18 11/19/18 08:00 10:08 Temperature 97.8 F Pulse Rate 82 Pulse Rate [ From Monitor] Respiratory Rate Blood Pressure 152/66 O2 Sat by Pulse Oximetry - General Appearance General appearance: well-developed, well-nourished EENT: ATNC, PERRL, mucous membranes moist Neck: no JVD, no carotid bruit Respiratory: Present: Clear to Ascultation. Absent: Rales, Ronchi Cardiology: regular, S1S2 Gastrointestinal: normoactive bowel sounds, no tenderness, no distended Integumentary: no rash, warm and dry Neurologic: no focal deficit, no asterixis Musculoskeletal: other (no edema in BLE) Psychiatric: mood/affect appropriate, cooperative - Lab 11/19/18 05:01 11/19/18 05:01 Most recent lab results Calcium 9.6 mg/dL (8.4-10.2) 11/19/18 05:01 Phosphorus 3.00 mg/dL (2.5-4.5) D 11/08/18 04:27 Magnesium 2.20 mg/dL (1.7-2.3) 11/05/18 16:31 45.0 mg/dL (0.1-20.0) H 11/13/18 11:27 40 mmol/L 11/06/18 Unknown 68 mg/dL (5-11.8) H 11/06/18 Unknown Medications & Allergies - Medications Allergies/Adverse Reactions: Allergies aspirin Allergy (Verified 11/06/18 17:06) Unknown Home Medications: Home Medications Medication Instructions Recorded Confirmed Last Taken Type Carvedilol [Coreg] 25 mg PO BID 11/06/18 11/06/18 Unknown History Furosemide [Lasix TAB] 20 mg PO HS 11/06/18 11/06/18 Unknown History Furosemide [Lasix TAB] 40 mg PO QAM 11/06/18 11/06/18 Unknown History Gabapentin [Neurontin] 800 mg PO BID 11/06/18 11/06/18 Unknown History Pravastatin Sodium [Pravastatin] 20 mg PO DAILY 11/06/18 11/06/18 Unknown History Ropinirole HCl [Requip] 1 mg PO TID 11/06/18 11/06/18 Unknown History Brimonidine Tartrate [Brimonidine 1 drop OU BID 11/08/18 11/08/18 Unknown History Tartrate 0.2%] Active Medications: Generic Name Dose Route Start Last Admin Trade Name Freq PRN Reason Stop Dose Admin Acetaminophen 650 mg 11/14/18 10:52 Tylenol PO Q6H PRN Non Cardiac Pain or Temp>100.5 Albuterol 2.5 mg 11/05/18 17:52 11/12/18 20:15 Proventil IH 2.5 mg Q3HRT PRN Administration Shortness Of Breath Lipase/Protease/Amylase 1 each 11/16/18 07:34 Pancredoris Cruz 10,500 Unit FEEDTUBE PRN PRN For Clogged Feeding Tube Carvedilol 6.25 mg 11/09/18 11:00 11/19/18 10:08 Coreg PO 6.25 mg BID NIKKO Administration Dextrose 50 ml 11/05/18 17:59 D50w (25gm) Syringe IV PRN PRN Hypoglycemia Famotidine 20 mg 11/11/18 10:00 11/19/18 10:09 Pepcid PO 20 mg DAILY NIKKO Administration Gabapentin 800 mg 11/08/18 10:00 11/19/18 10:08 Neurontin PO 800 mg BID NIKKO Administration Hydralazine HCl 10 mg 11/05/18 21:30 11/17/18 06:15 Apresoline IV 10 mg Q6HR PRN Administration Hypertension Hydrophilic Ointment 1 applic 11/05/18 16:21 Vaseline Lip Therapy TP Q2HR PRN Dry Lips Dextrose/Sodium Chloride 1,000 mls @ 50 mls/hr 11/15/18 13:00 11/18/18 20:32 D5/0.45ns IV 50 mls/hr DIRECT NIKKO Administration Insulin Human Lispro 0 unit 11/06/18 12:00 11/19/18 06:30 Humalog SUB-Q Not Given Q6HR [facility] Protocol Latanoprost 1 drops 11/08/18 18:00 11/18/18 17:35 Latanoprost 0.005% OU 1 drops QPM NIKKO Administration Miscellaneous Medication 1 drop 11/08/18 22:00 11/19/18 10:08 Brimonidine Tartate OP Not Given BID NIKKO Miscellaneous Medication 1 drop 11/16/18 22:00 11/19/18 10:07 Brimonidine Tartrate [Brimonidine Tartrate 0.2%] OP 1 drop BID NIKKO Administration Morphine Sulfate 1 mg 11/14/18 10:52 11/15/18 09:27 Morphine IV 1 mg Q4H PRN Administration Pain , Severe (7-10) Multi-Ingred Cream/Lotion/Oil/Oint 1 applic 11/05/18 16:21 Artificial Tears Ophth Oint OU Q4HR PRN Dry Eye(s) Pravastatin Sodium 20 mg 11/08/18 10:00 11/19/18 10:09 Pravachol PO 20 mg DAILY NIKKO Administration Ropinirole HCl 1 mg 11/08/18 09:00 11/19/18 08:19 Requip PO 1 mg TID NIKKO Administration Simple Syrup 15 ml 11/16/18 07:34 Simple Syrup FEEDTUBE PRN PRN Hypoglycemia Simple Syrup 30 ml 11/16/18 07:34 Simple Syrup FEEDTUBE PRN PRN Hypoglycemia Sodium Bicarbonate 325 mg 11/16/18 07:34 Sodium Bicarbonate FEEDTUBE PRN PRN For Clogged Feeding Tube Sodium Chloride 10 ml 11/05/18 22:00 11/19/18 10:11 Sodium Chloride Flush Syringe 10 Ml IV 10 ml BID NIKKO Administration Sodium Chloride 10 ml 11/05/18 17:52 Sodium Chloride Flush Syringe 10 Ml IV PRN PRN LINE FLUSH
--- NOTE | 2018-11-19 13:46 | Progress Note ---
Assessment and Plan atient awake and sitting in chair by the side of the bed. Patient resting on vapotherm FIO2 30%. O2 satuaration 98%. Patient weak . No acute respiratory distress at rest. - Patient Problems (1) Respiratory failure Current Visit: Yes Status: Acute Qualifiers: Chronicity: acute Respiratory failure complication: unspecified whether with hypoxia or hypercapnia Qualified Code(s): J96.00 - Acute respiratory failure, unspecified whether with hypoxia or hypercapnia Plan to address problem: slowly taper O2 to keep saturation above 92%. Albuterol/atrovent aerosol treatments q 6 hours. SCDs Continue famotidine. (2) Seizure Current Visit: Yes Status: Acute Plan to address problem: Management as per primary care and neurology. (3) Sepsis Current Visit: Yes Status: Acute Qualifiers: Sepsis type: sepsis due to unspecified organism Qualified Code(s): A41.9 - Sepsis, unspecified organism Plan to address problem: Staph Hominis bacteremia Patient afebrile. No leukocytosis. Patient not on any antibiotics. Management as per primary care and infectious diseases. (4) ARF (acute renal failure) Current Visit: Yes Status: Acute Qualifiers: Acute renal failure type: with acute tubular necrosis Qualified Code(s): N17.0 - Acute kidney failure with tubular necrosis Plan to address problem: Management as per nephrology. (5) Acidosis Current Visit: Yes Status: Acute Plan to address problem: Improved. (6) Encephalopathy Current Visit: Yes Status: Acute Plan to address problem: Management as per primary care and neurology. Subjective Date of service: 11/19/18 Principal diagnosis: Ac hypoxemic Resp Failure ; Possible Seizure; Ac. Met Encephalopathy; BRAD Interval history: Patient awake and sitting in chair by the side of the bed. Patient resting on vapotherm FIO2 30%. O2 satuaration 98%. Patient weak . No acute respiratory distress at rest. Objective Vital Signs - 12hr 11/19/18 11/19/18 11/19/18 02:00 02:01 03:01 Temperature Pulse Rate 81 86 Pulse Rate [ From Monitor] Respiratory 17 18 Rate Blood Pressure 152/66 152/66 O2 Sat by Pulse 95 98 97 Oximetry 11/19/18 11/19/18 11/19/18 04:00 04:01 05:01 Temperature 98.4 F Pulse Rate 84 82 80 Pulse Rate [ 84 From Monitor] Respiratory 16 14 18 Rate Blood Pressure 152/66 152/66 O2 Sat by Pulse 96 99 97 Oximetry 11/19/18 11/19/18 11/19/18 06:01 07:01 07:43 Temperature Pulse Rate 79 90 Pulse Rate [ From Monitor] Respiratory 20 13 Rate Blood Pressure 152/66 152/66 O2 Sat by Pulse 96 99 96 Oximetry 11/19/18 11/19/18 11/19/18 08:00 08:01 09:01 Temperature 97.8 F Pulse Rate 82 88 83 Pulse Rate [ 80 From Monitor] Respiratory 15 15 13 Rate Blood Pressure 152/66 152/66 O2 Sat by Pulse 96 98 97 Oximetry 11/19/18 11/19/18 11/19/18 10:00 10:08 11:01 Temperature Pulse Rate 81 82 81 Pulse Rate [ From Monitor] Respiratory 16 19 Rate Blood Pressure 152/66 152/66 152/66 O2 Sat by Pulse 97 97 Oximetry 11/19/18 11/19/18 11/19/18 12:00 12:01 13:01 Temperature 97.6 F Pulse Rate 76 78 78 Pulse Rate [ 76 From Monitor] Respiratory 17 11 L 14 Rate Blood Pressure 169/71 169/71 O2 Sat by Pulse 97 97 97 Oximetry Constitutional: no acute distress, asleep Eyes: non-icteric ENT: oropharynx moist Neck: supple, no lymphadenopathy, no JVD, other (no thyromegaly) Effort: mildly labored Ascultation: Bilateral: diminished breath sounds, rhonchi (bases) Percussion: Bilateral: not dull Cardiovascular: regular rate and rhythm, murmur noted (systolic), other Gastrointestinal: normoactive bowel sounds, soft, non-tender, non-distended Integumentary: normal Extremities: no cyanosis, no edema, pink and warm, pulses normal, no ischemia or petechiae Neurologic: non-focal exam (moves all extremities, obeys onse step commands), pupils equal and round Psychiatric: mood appropriate, affect normal CBC and BMP: 11/19/18 05:01 11/19/18 05:01 ABG, PT/INR, D-dimer: ABG POC ABG pH 7.415 (7.35-7.45) 11/12/18 04:44 POC ABG pCO2 34.0 (35-45) L 11/12/18 04:44 POC ABG pO2 138 (80-105) H 11/12/18 04:44 POC ABG HCO3 21.8 (22-26 mml/L) 11/12/18 04:44 POC ABG Total CO2 23 (23-27mmol/L) 11/12/18 04:44 POC ABG O2 Sat 99 11/12/18 04:44 PT/INR, D-dimer PT 15.2 Sec. (12.2-14.9) H 11/11/18 10:03 INR 1.23 (0.87-1.13) H 11/11/18 10:03 Abnormal lab findings: Abnormal Labs 11/05/18 11/05/18 11/05/18 16:31 16:31 16:31 WBC RBC Hgb Hct Plt Count 139 L [place] % (Auto) Lymph # 0.7 L Seg Neutrophils % 78.8 H PT INR POC ABG pH POC ABG pCO2 POC ABG pO2 Sodium 148 H Potassium 3.2 L Chloride 110.6 H Carbon Dioxide 17 L BUN 18 H Creatinine 1.9 H Glucose 205 H POC Glucose Lactic Acid 8.20 H* Calcium 10.9 H Phosphorus Total Creatine Kinase C-Reactive Protein Total Protein Albumin 3.6 L Urine WBC (Auto) Urine Creatinine Urine Total Protein Salicylates Acetaminophen 11/05/18 11/05/18 11/05/18 16:31 16:31 16:31 WBC RBC Hgb Hct Plt Count [place] % (Auto) Lymph # Seg Neutrophils % PT INR POC ABG pH POC ABG pCO2 POC ABG pO2 Sodium Potassium Chloride Carbon Dioxide BUN Creatinine Glucose POC Glucose Lactic Acid Calcium Phosphorus Total Creatine Kinase < 7 L C-Reactive Protein Total Protein Albumin Urine WBC (Auto) Urine Creatinine Urine Total Protein Salicylates < 0.3 L Acetaminophen < 5.0 L 11/05/18 11/05/18 11/05/18 17:29 17:42 20:47 WBC RBC Hgb Hct Plt Count [place] % (Auto) Lymph # Seg Neutrophils % PT INR POC ABG pH POC ABG pCO2 33.4 L POC ABG pO2 136 H Sodium Potassium Chloride Carbon Dioxide BUN Creatinine Glucose POC Glucose Lactic Acid 3.30 H* Calcium Phosphorus Total Creatine Kinase C-Reactive Protein Total Protein Albumin Urine WBC (Auto) 19.0 H Urine Creatinine Urine Total Protein Salicylates Acetaminophen 11/05/18 11/05/18 11/06/18 20:47 22:42 04:09 WBC 4.4 L RBC Hgb Hct Plt Count 102 L [place] % (Auto) 13.2 H Lymph # 1.0 L Seg Neutrophils % PT INR POC ABG pH POC ABG pCO2 POC ABG pO2 Sodium Potassium Chloride Carbon Dioxide BUN Creatinine Glucose POC Glucose 121 H Lactic Acid Calcium Phosphorus Total Creatine Kinase C-Reactive Protein Total Protein Albumin Urine WBC (Auto) Urine Creatinine 166.9 H Urine Total Protein Salicylates Acetaminophen 11/06/18 11/06/18 11/06/18 04:09 05:05 07:31 WBC RBC Hgb Hct Plt Count [place] % (Auto) Lymph # Seg Neutrophils % PT INR POC ABG pH 7.509 H POC ABG pCO2 < 30 L POC ABG pO2 115 H Sodium 150 H Potassium 2.7 L* Chloride 118.2 H Carbon Dioxide 21 L BUN 21 H Creatinine 1.6 H Glucose 125 H POC Glucose Lactic Acid 2.50 H* Calcium Phosphorus Total Creatine Kinase C-Reactive Protein Total Protein 5.7 L Albumin 3.1 L Urine WBC (Auto) Urine Creatinine Urine Total Protein Salicylates Acetaminophen 11/06/18 11/06/18 11/06/18 12:04 16:21 18:04 WBC RBC Hgb Hct Plt Count [place] % (Auto) Lymph # Seg Neutrophils % PT INR POC ABG pH POC ABG pCO2 POC ABG pO2 Sodium Potassium 5.4 H D Chloride Carbon Dioxide BUN Creatinine Glucose POC Glucose 122 H 110 H Lactic Acid Calcium Phosphorus Total Creatine Kinase C-Reactive Protein Total Protein Albumin Urine WBC (Auto) Urine Creatinine Urine Total Protein Salicylates Acetaminophen 11/06/18 11/06/18 11/07/18 21:28 Unknown 04:02 WBC RBC Hgb Hct Plt Count [place] % (Auto) Lymph # Seg Neutrophils % PT INR POC ABG pH POC ABG pCO2 POC ABG pO2 Sodium 152 H Potassium Chloride 123.4 H Carbon Dioxide 20 L BUN 23 H Creatinine 1.5 H Glucose 111 H POC Glucose 125 H Lactic Acid Calcium Phosphorus 1.00 L Total Creatine Kinase C-Reactive Protein Total Protein Albumin Urine WBC (Auto) Urine Creatinine 155.8 H Urine Total Protein 68 H Salicylates Acetaminophen 11/07/18 11/07/18 11/07/18 09:07 11:05 15:48 WBC 4.1 L RBC 3.62 L Hgb Hct Plt Count 77 L [place] % (Auto) Lymph # Seg Neutrophils % PT INR POC ABG pH 7.314 L POC ABG pCO2 POC ABG pO2 Sodium Potassium Chloride Carbon Dioxide BUN Creatinine Glucose POC Glucose Lactic Acid Calcium Phosphorus Total Creatine Kinase C-Reactive Protein 3.50 H Total Protein Albumin Urine WBC (Auto) Urine Creatinine Urine Total Protein Salicylates Acetaminophen 11/08/18 11/08/18 11/08/18 04:27 05:29 12:27 WBC RBC Hgb Hct Plt Count [place] % (Auto) Lymph # Seg Neutrophils % PT INR POC ABG pH POC ABG pCO2 33.4 L POC ABG pO2 78 L Sodium 146 H Potassium Chloride 117.1 H Carbon Dioxide 18 L BUN 19 H Creatinine 1.6 H Glucose 111 H POC Glucose 108 H Lactic Acid Calcium Phosphorus Total Creatine Kinase C-Reactive Protein Total Protein Albumin Urine WBC (Auto) Urine Creatinine Urine Total Protein Salicylates Acetaminophen 11/08/18 11/08/18 11/08/18 12:27 18:11 23:50 WBC RBC Hgb Hct Plt Count [place] % (Auto) Lymph # Seg Neutrophils % PT INR POC ABG pH POC ABG pCO2 POC ABG pO2 Sodium Potassium Chloride Carbon Dioxide BUN Creatinine Glucose POC Glucose 188 H 126 H 149 H Lactic Acid Calcium Phosphorus Total Creatine Kinase C-Reactive Protein Total Protein Albumin Urine WBC (Auto) Urine Creatinine Urine Total Protein Salicylates Acetaminophen 11/09/18 11/09/18 11/09/18 03:32 04:12 04:12 WBC 3.6 L RBC 2.99 L Hgb 8.8 L Hct 26.9 L Plt Count 81 L [place] % (Auto) Lymph # Seg Neutrophils % PT INR POC ABG pH 7.329 L POC ABG pCO2 POC ABG pO2 Sodium Potassium Chloride 114.8 H Carbon Dioxide 20 L BUN 28 H Creatinine 1.9 H Glucose 144 H POC Glucose Lactic Acid Calcium 8.2 L Phosphorus Total Creatine Kinase C-Reactive Protein Total Protein Albumin Urine WBC (Auto) Urine Creatinine Urine Total Protein Salicylates Acetaminophen 11/09/18 11/09/18 11/09/18 05:24 12:59 17:59 WBC RBC Hgb Hct Plt Count [place] % (Auto) Lymph # Seg Neutrophils % PT INR POC ABG pH POC ABG pCO2 POC ABG pO2 Sodium Potassium Chloride Carbon Dioxide BUN Creatinine Glucose POC Glucose 163 H 175 H 116 H Lactic Acid Calcium Phosphorus Total Creatine Kinase C-Reactive Protein Total Protein Albumin Urine WBC (Auto) Urine Creatinine Urine Total Protein Salicylates Acetaminophen 11/10/18 11/10/18 11/10/18 00:45 03:57 06:45 WBC RBC Hgb Hct Plt Count [place] % (Auto) Lymph # Seg Neutrophils % PT INR POC ABG pH 7.332 L POC ABG pCO2 POC ABG pO2 Sodium Potassium Chloride Carbon Dioxide BUN Creatinine Glucose POC Glucose 201 H 148 H Lactic Acid Calcium Phosphorus Total Creatine Kinase C-Reactive Protein Total Protein Albumin Urine WBC (Auto) Urine Creatinine Urine Total Protein Salicylates Acetaminophen 11/10/18 11/10/18 11/10/18 09:52 09:52 12:36 WBC RBC 3.48 L Hgb Hct Plt Count 103 L [place] % (Auto) 14.8 H Lymph # 0.6 L Seg Neutrophils % PT INR POC ABG pH POC ABG pCO2 POC ABG pO2 Sodium Potassium Chloride 109.3 H Carbon Dioxide 21 L BUN 36 H Creatinine 2.1 H Glucose 134 H POC Glucose 142 H Lactic Acid Calcium Phosphorus Total Creatine Kinase C-Reactive Protein Total Protein Albumin Urine WBC (Auto) Urine Creatinine Urine Total Protein Salicylates Acetaminophen 11/10/18 11/10/18 11/11/18 17:31 23:34 05:01 WBC 4.1 L RBC 3.11 L Hgb 9.1 L Hct 27.7 L Plt Count 97 L [place] % (Auto) Lymph # Seg Neutrophils % PT INR POC ABG pH POC ABG pCO2 POC ABG pO2 Sodium Potassium Chloride Carbon Dioxide BUN Creatinine Glucose POC Glucose 152 H 163 H Lactic Acid Calcium Phosphorus Total Creatine Kinase C-Reactive Protein Total Protein Albumin Urine WBC (Auto) Urine Creatinine Urine Total Protein Salicylates Acetaminophen 11/11/18 11/11/18 11/11/18 05:01 05:34 10:03 WBC RBC Hgb Hct Plt Count [place] % (Auto) Lymph # Seg Neutrophils % PT 15.2 H INR 1.23 H POC ABG pH POC ABG pCO2 POC ABG pO2 Sodium Potassium 5.3 H Chloride 108.2 H Carbon Dioxide 21 L BUN 39 H Creatinine 2.2 H Glucose 155 H POC Glucose 159 H Lactic Acid Calcium Phosphorus Total Creatine Kinase C-Reactive Protein Total Protein Albumin Urine WBC (Auto) Urine Creatinine Urine Total Protein Salicylates Acetaminophen 11/11/18 11/11/18 11/11/18 12:36 17:00 17:25 WBC RBC Hgb Hct Plt Count [place] % (Auto) Lymph # Seg Neutrophils % PT INR POC ABG pH POC ABG pCO2 POC ABG pO2 121 H Sodium Potassium Chloride Carbon Dioxide BUN Creatinine Glucose POC Glucose 147 H 116 H Lactic Acid Calcium Phosphorus Total Creatine Kinase C-Reactive Protein Total Protein Albumin Urine WBC (Auto) Urine Creatinine Urine Total Protein Salicylates Acetaminophen 11/11/18 11/11/18 11/12/18 20:33 23:46 04:28 WBC RBC 3.26 L Hgb 9.6 L Hct 29.2 L Plt Count 126 L [place] % (Auto) Lymph # Seg Neutrophils % PT INR POC ABG pH 7.247 L POC ABG pCO2 53.6 H POC ABG pO2 Sodium Potassium Chloride Carbon Dioxide BUN Creatinine Glucose POC Glucose 130 H Lactic Acid Calcium Phosphorus Total Creatine Kinase C-Reactive Protein Total Protein Albumin Urine WBC (Auto) Urine Creatinine Urine Total Protein Salicylates Acetaminophen 11/12/18 11/12/18 11/13/18 04:28 04:44 04:49 WBC RBC 2.89 L Hgb 8.6 L Hct 25.7 L Plt Count 133 L [place] % (Auto) Lymph # Seg Neutrophils % PT INR POC ABG pH POC ABG pCO2 34.0 L POC ABG pO2 138 H Sodium Potassium 5.2 H Chloride 109.9 H Carbon Dioxide 20 L BUN 40 H Creatinine 2.2 H Glucose 112 H POC Glucose Lactic Acid Calcium Phosphorus Total Creatine Kinase C-Reactive Protein Total Protein 5.9 L Albumin 2.5 L Urine WBC (Auto) Urine Creatinine Urine Total Protein Salicylates Acetaminophen 11/13/18 11/13/18 11/14/18 04:49 11:27 04:19 WBC RBC 3.32 L Hgb 9.7 L Hct 29.8 L Plt Count [place] % (Auto) Lymph # Seg Neutrophils % PT INR POC ABG pH POC ABG pCO2 POC ABG pO2 Sodium Potassium 5.1 H Chloride 113.7 H Carbon Dioxide 21 L BUN 44 H Creatinine 2.3 H Glucose POC Glucose Lactic Acid Calcium Phosphorus Total Creatine Kinase C-Reactive Protein Total Protein Albumin Urine WBC (Auto) Urine Creatinine 45.0 H Urine Total Protein Salicylates Acetaminophen 11/14/18 11/14/18 11/15/18 04:19 17:45 04:00 WBC RBC Hgb Hct Plt Count [place] % (Auto) Lymph # Seg Neutrophils % PT INR POC ABG pH POC ABG pCO2 POC ABG pO2 Sodium 147 H 150 H Potassium Chloride 114.8 H 118.9 H Carbon Dioxide 18 L 18 L BUN 44 H 45 H Creatinine 2.2 H 2.3 H Glucose POC Glucose 68 L Lactic Acid Calcium Phosphorus Total Creatine Kinase C-Reactive Protein Total Protein Albumin Urine WBC (Auto) Urine Creatinine Urine Total Protein Salicylates Acetaminophen 11/15/18 11/16/18 11/16/18 05:30 00:03 01:19 WBC RBC 3.19 L Hgb 9.4 L Hct 29.3 L Plt Count [place] % (Auto) Lymph # Seg Neutrophils % PT INR POC ABG pH POC ABG pCO2 POC ABG pO2 Sodium Potassium Chloride Carbon Dioxide BUN Creatinine Glucose POC Glucose 122 H 115 H Lactic Acid Calcium Phosphorus Total Creatine Kinase C-Reactive Protein Total Protein Albumin Urine WBC (Auto) Urine Creatinine Urine Total Protein Salicylates Acetaminophen 11/16/18 11/16/18 11/16/18 05:07 11:07 12:13 WBC RBC Hgb Hct Plt Count [place] % (Auto) Lymph # Seg Neutrophils % PT INR POC ABG pH POC ABG pCO2 POC ABG pO2 Sodium 151 H Potassium Chloride 119.5 H Carbon Dioxide BUN 39 H Creatinine 2.2 H Glucose 123 H POC Glucose 110 H 146 H Lactic Acid Calcium Phosphorus Total Creatine Kinase C-Reactive Protein Total Protein Albumin Urine WBC (Auto) Urine Creatinine Urine Total Protein Salicylates Acetaminophen 11/16/18 11/17/18 11/17/18 18:02 00:00 05:51 WBC RBC Hgb Hct Plt Count [place] % (Auto) Lymph # Seg Neutrophils % PT INR POC ABG pH POC ABG pCO2 POC ABG pO2 Sodium Potassium Chloride Carbon Dioxide BUN Creatinine Glucose POC Glucose 129 H 111 H 137 H Lactic Acid Calcium Phosphorus Total Creatine Kinase C-Reactive Protein Total Protein Albumin Urine WBC (Auto) Urine Creatinine Urine Total Protein Salicylates Acetaminophen 11/17/18 11/17/18 11/17/18 12:01 12:22 17:45 WBC RBC Hgb Hct Plt Count [place] % (Auto) Lymph # Seg Neutrophils % PT INR POC ABG pH POC ABG pCO2 POC ABG pO2 Sodium 146 H Potassium Chloride 115.1 H Carbon Dioxide BUN 35 H Creatinine 2.0 H Glucose 142 H POC Glucose 139 H 132 H Lactic Acid Calcium Phosphorus Total Creatine Kinase C-Reactive Protein Total Protein Albumin Urine WBC (Auto) Urine Creatinine Urine Total Protein Salicylates Acetaminophen 11/18/18 11/18/18 11/18/18 00:11 05:32 11:39 WBC RBC Hgb Hct Plt Count [place] % (Auto) Lymph # Seg Neutrophils % PT INR POC ABG pH POC ABG pCO2 POC ABG pO2 Sodium Potassium Chloride Carbon Dioxide BUN Creatinine Glucose POC Glucose 159 H 140 H 153 H Lactic Acid Calcium Phosphorus Total Creatine Kinase C-Reactive Protein Total Protein Albumin Urine WBC (Auto) Urine Creatinine Urine Total Protein Salicylates Acetaminophen 11/18/18 11/18/18 11/18/18 16:22 16:22 23:44 WBC RBC 2.85 L Hgb 8.4 L Hct 25.7 L Plt Count [place] % (Auto) Lymph # Seg Neutrophils % PT INR POC ABG pH POC ABG pCO2 POC ABG pO2 Sodium Potassium Chloride 110.7 H Carbon Dioxide BUN 30 H Creatinine 1.7 H Glucose 145 H POC Glucose 153 H Lactic Acid Calcium Phosphorus Total Creatine Kinase C-Reactive Protein Total Protein Albumin Urine WBC (Auto) Urine Creatinine Urine Total Protein Salicylates Acetaminophen 11/19/18 11/19/18 11/19/18 05:01 05:01 05:27 WBC RBC 2.94 L Hgb 8.5 L Hct 26.5 L Plt Count [place] % (Auto) Lymph # Seg Neutrophils % PT INR POC ABG pH POC ABG pCO2 POC ABG pO2 Sodium Potassium Chloride 108.0 H Carbon Dioxide BUN 23 H Creatinine 1.8 H Glucose 103 H POC Glucose 122 H Lactic Acid Calcium Phosphorus Total Creatine Kinase C-Reactive Protein Total Protein Albumin Urine WBC (Auto) Urine Creatinine Urine Total Protein Salicylates Acetaminophen 11/19/18 12:30 WBC RBC Hgb Hct Plt Count [place] % (Auto) Lymph # Seg Neutrophils % PT INR POC ABG pH POC ABG pCO2 POC ABG pO2 Sodium Potassium Chloride Carbon Dioxide BUN Creatinine Glucose POC Glucose 169 H Lactic Acid Calcium Phosphorus Total Creatine Kinase C-Reactive Protein Total Protein Albumin Urine WBC (Auto) Urine Creatinine Urine Total Protein Salicylates Acetaminophen Allied health notes reviewed: nursing
--- NOTE | 2018-11-19 17:21 | Progress Note ---
Assessment and Plan Assessment and plan: Patient is a 82 yo woman (No prior admission here for review, first visit in our EMR. Also, her is in Hospice for metastatic cancer per son Lauro) with a history of hypertension, dyslipidemia, OA s/p bilateral TKR and possible CHF who presented to [facility] ED with AMS. Apparently, patient was found unresponsive in the bed and seizing. On EMS arrival patient was noted to have a GCS of 3 and was placed on oxygen mask and intubated in the ED on arrival 11/05/18. Initial Temp was noted as 102.2. In the ED patient was intubated due to AMS and Acute Hypoxemic Respiratory Failure, and is unable to protect her airway, Teleneurology consulted in ED. Pt deemed not a candidate for TPA. Initially pCXR on 11/05/18 showed ETT in good position, no other significant findings, CT abd/pelvis without contrast showed mild bibasilar lung atelectasis as well as mildly distended gallbladder with minimal cholelithiasis. 11/10/18 pCXR showed developing Atelectasis and bilateral pleural effusion. Then pCXR on 11/11/18 showed increasing pleural parenchymal opacity LLL. Patient was eventually extubated on 11/11/18 and placed on bipap 50%. Then on 11/13/18 bipap removed in AM and patient transferred out of the ICU to [facility]. * Renal us: Small left renal cyst, negative for obstruction or mass * MRI Head: negative for acute pathology * Culture: Staph homis in blood * MSSA trach culture * CT chest wo contrast 11/11/18 IMPRESSION: Small pleural effusions, left greater than right. Basilar consolidation is probably secondary to atelectasis and less likely pneumonia. The remainder of the lungs appear clear. * 11/07/18 2D ECHO Conclusions: Mild to moderate concentric LVH, est EF 40-45%, left ventricular diastolic filling pattern is c/w pseudonormalization, RVSF mildly reduced, mild TR, small pericardial effusion, circumferential, no evidence of tamponade Acute hypoxic respiratory failure >96 hours, poa: currently extubated on Sunday11/11/18, off Bipap, on high flow and Pulm is following MSSA Sepsis Left Lobar Pneumonia: treated with Abx, ID following. Staph Hominis Bacteremia: Repeat blood cultures negative, ID following Hyperkalemia: treated with kayexalate and monitor bmp closely, Nephrology is following Acute cystitis: treated with Abx, monitor bmp closely Hypertensive Urgency: Resume Coreg, Hydrazine Status Epilepticus, poa: Neurology is following, treat with prn IV ativan Lactic Acidosis, treat with renal failure Hypernatermia resolved: monitor bmp closely Acute Metabolic Encephalopathy Thrombocytopenia; improving, monitor CBC closely ARF due to suspect ATN, poa: Nephrology following. Dysphagia, failed swallow evaluation initally, but now cleared for gi soft: do bhuff and speech therapy ICU deconditioning: order pt/ot Bolton removed after 24hr urine collection with a Purex in right EJ removed, midline placed Left arm swollen: venous doppler ordered which was negative for DVT D/C to LTACH once accepted I called [employer] @ then pressed 5, left my number for call back and no one called me back d/w daughter Urmila at bedside Per CM. Ltac Was denied by insurance company, now working on acute rehab Discussed with Nursing staff for patient to feed so we can wean off tube feeds Also continue to wean off High flow History Interval history: Patient was seen and examined. Follow-up on current diagnosis of AMS and respiratory failure. No overnight events reported to me. Imaging, nursing note, chart, labs and old chart reviewed. tryin to eat but per daughter inlaw patient does not like the food taste Hospitalist Physical - Physical exam Narrative exam: Gen: ill appearing, mild increase in accessory muscles, off bipap on high flow O2, lethargic, sitting up by the chair HEENT: NCAT, EOMI, PERRL, OP Clear Neck: supple, no adenopathy, no thyromegaly, no JVD CVS/Heart: Regular tachycardia normal S1S2, pulses present bilaterally Chest/Lungs: tachypneic, diminished bs bilatearal, Symmetrical chest expansion, good air entry bilaterally GI/Abdomen: soft, NTND, good bowel sounds, no guarding or rebound /Bladder: no suprapubic tenderness, no CVA or paraspinal tenderness Extermity/Skin: dependent edema, pale skin MSK: doesn't follow commands Neuro: CN 2-12 grossly intact, not following commands Psych: calm - Constitutional Vitals: Temp Pulse Resp BP Pulse Ox 97.6 F 78 14 169/71 97 11/19/18 12:00 11/19/18 13:01 11/19/18 13:01 11/19/18 13:01 11/19/18 14:00 General appearance: Absent: severe distress Results - Labs CBC & Chem 7: 11/19/18 05:01 11/20/18 05:10 Labs: Laboratory Last Values WBC 5.2 K/mm3 (4.5-11.0) 11/19/18 05:01 RBC 2.94 M/mm3 (3.65-5.03) L 11/19/18 05:01 Hgb 8.5 gm/dl (10.1-14.3) L 11/19/18 05:01 Hct 26.5 % (30.3-42.9) L 11/19/18 05:01 MCV 90 fl (79-97) 11/19/18 05:01 MCH 29 pg (28-32) 11/19/18 05:01 MCHC 32 % (30-34) 11/19/18 05:01 RDW 14.5 % (13.2-15.2) 11/19/18 05:01 Plt Count 159 K/mm3 (140-440) 11/19/18 05:01 Lymph % (Auto) 13.4 % (13.4-35.0) 11/10/18 09:52 O'Brien % (Auto) 14.8 % (0.0-7.3) H 11/10/18 09:52 Eos % (Auto) 1.6 % (0.0-4.3) 11/10/18 09:52 Baso % (Auto) 0.3 % (0.0-1.8) 11/10/18 09:52 Lymph # 0.6 K/mm3 (1.2-5.4) L 11/10/18 09:52 O'Brien # 0.7 K/mm3 (0.0-0.8) 11/10/18 09:52 Eos # 0.1 K/mm3 (0.0-0.4) 11/10/18 09:52 Baso # 0.0 K/mm3 (0.0-0.1) 11/10/18 09:52 Seg Neutrophils % 69.9 % (40.0-70.0) 11/10/18 09:52 Seg Neutrophils # 3.2 K/mm3 (1.8-7.7) 11/10/18 09:52 PT 15.2 Sec. (12.2-14.9) H 11/11/18 10:03 INR 1.23 (0.87-1.13) H 11/11/18 10:03 APTT 31.8 Sec. (24.2-36.6) 11/11/18 10:03 Heparin Anti-Xa, Unfract Negative (Negative) 11/08/18 13:49 POC ABG pH 7.415 (7.35-7.45) 11/12/18 04:44 POC ABG pCO2 34.0 (35-45) L 11/12/18 04:44 POC ABG pO2 138 (80-105) H 11/12/18 04:44 POC ABG HCO3 21.8 (22-26 mml/L) 11/12/18 04:44 POC ABG Total CO2 23 (23-27mmol/L) 11/12/18 04:44 POC ABG O2 Sat 99 11/12/18 04:44 POC ABG Base Excess -3 ((-2) - (+3)mmol/L) 11/12/18 04:44 30 % 11/12/18 04:44 Sodium 140 mmol/L (137-145) 11/19/18 05:01 Potassium 3.8 mmol/L (3.6-5.0) 11/19/18 05:01 Chloride 108.0 mmol/L (98-107) H 11/19/18 05:01 Carbon Dioxide 24 mmol/L (22-30) 11/19/18 05:01 12 mmol/L 11/19/18 05:01 BUN 23 mg/dL (7-17) H 11/19/18 05:01 1.8 mg/dL (0.7-1.2) H 11/19/18 05:01 Estimated GFR 27 ml/min 11/19/18 05:01 13 % 11/19/18 05:01 Glucose 103 mg/dL (65-100) H 11/19/18 05:01 POC Glucose 169 (70-105) H 11/19/18 12:30 Lactic Acid 0.70 mmol/L (0.7-2.0) 11/09/18 04:12 Calcium 9.6 mg/dL (8.4-10.2) 11/19/18 05:01 Phosphorus 3.00 mg/dL (2.5-4.5) D 11/08/18 04:27 Magnesium 2.20 mg/dL (1.7-2.3) 11/05/18 16:31 0.40 mg/dL (0.1-1.2) 11/12/18 04:28 AST 27 units/L (5-40) 11/12/18 04:28 ALT 24 units/L (7-56) 11/12/18 04:28 66 units/L (35-129) 11/12/18 04:28 44.0 umol/L (25-60) 11/05/18 17:28 < 7 units/L (30-135) L 11/05/18 16:31 0.019 ng/mL (0.00-0.029) 11/05/18 16:31 3.50 mg/dL (0.00-1.30) H 11/07/18 15:48 5.9 g/dL (6.3-8.2) L 11/12/18 04:28 2.5 g/dL (3.9-5) L 11/12/18 04:28 0.7 % 11/12/18 04:28 See scanned result 11/08/18 13:49 TSH 0.972 mlU/mL (0.270-4.200) 11/05/18 16:31 Yellow (Yellow) 11/05/18 20:47 Slightly-cloudy (Clear) 11/05/18 20:47 5.0 (5.0-7.0) 11/05/18 20:47 Ur Specific [place] 1.016 (1.003-1.030) 11/05/18 20:47 100 mg/dl mg/dL (Negative) 11/05/18 20:47 50 mg/dL (Negative) 11/05/18 20:47 Neg mg/dL (Negative) 11/05/18 20:47 Sm (Negative) 11/05/18 20:47 Pos (Negative) 11/05/18 20:47 Neg (Negative) 11/05/18 20:47 < 2.0 mg/dL (<2.0) 11/05/18 20:47 Ur Leukocyte Esterase Tr (Negative) 11/05/18 20:47 19.0 /HPF (0.0-6.0) H 11/05/18 20:47 4.0 /HPF (0.0-6.0) 11/05/18 20:47 U Epithel Cells (Auto) 1.0 /HPF (0-13.0) 11/05/18 20:47 Few /HPF 11/05/18 20:47 None seen (None Seen) 11/06/18 14:48 2800 ml 11/13/18 11:27 45.0 mg/dL (0.1-20.0) H 11/13/18 11:27 Height (in) 65.0 inches 11/13/18 11:27 Weight (lb) 153.7 lbs 11/13/18 11:27 37 11/13/18 11:27 40 mmol/L 11/06/18 Unknown 68 mg/dL (5-11.8) H 11/06/18 Unknown Clear 11/11/18 Unknown Colorless 11/11/18 Unknown 10 /mm3 (1-10) 11/11/18 Unknown 22 /mm3 (0-0) 11/11/18 Unknown CSF Seg Neutrophils 0 % (0-6) 11/11/18 Unknown 37.8 % (40-80) 11/11/18 Unknown CSF Reactive Lymphs 0 % 11/11/18 Unknown 62.2 % (15-45) 11/11/18 Unknown 0 % 11/11/18 Unknown 0 % 11/11/18 Unknown C 11/11/18 Unknown 77 mg/dL 11/11/18 Unknown 57 mg/dL 11/11/18 Unknown Vancomycin Trough 17.5 ug/mL (5.0-20.0) 11/08/18 21:16 Random Vancomycin 22.4 ug/mL (0-40.0) 11/11/18 05:01 Salicylates < 0.3 mg/dL (2.8-20.0) L 11/05/18 16:31 Acetaminophen < 5.0 ug/mL (10.0-30.0) L 11/05/18 16:31 Plasma/Serum Alcohol < 0.01 % (0-0.07) 11/05/18 16:31 Heparin-induced Plt Ab Negative (Negative) 11/08/18 13:49 UF Heparin High Dose 0 % Release 11/08/18 13:49 KIANNA UFH Low Dose 0.1 0 % Release 11/08/18 13:49 KIANNA UFH Low Dose 0.5 0 % Release 11/08/18 13:49 Active Medications - Current Medications Current Medications: Generic Name Dose Route Start Last Admin Trade Name Freq PRN Reason Stop Dose Admin Acetaminophen 650 mg 11/14/18 10:52 Tylenol PO Q6H PRN Non Cardiac Pain or Temp>100.5 Albuterol 2.5 mg 11/05/18 17:52 11/12/18 20:15 Proventil IH 2.5 mg Q3HRT PRN Administration Shortness Of Breath Lipase/Protease/Amylase 1 each 11/16/18 07:[address] 10,500 Unit FEEDTUBE PRN PRN For Clogged Feeding Tube Carvedilol 6.25 mg 11/09/18 11:00 11/19/18 10:08 Coreg PO 6.25 mg BID NIKKO Administration Dextrose 50 ml 11/05/18 17:59 D50w (25gm) Syringe IV PRN PRN Hypoglycemia Famotidine 20 mg 11/11/18 10:00 11/19/18 10:09 Pepcid PO 20 mg DAILY NIKKO Administration Gabapentin 800 mg 11/08/18 10:00 11/19/18 10:08 Neurontin PO 800 mg BID NIKKO Administration Hydralazine HCl 10 mg 11/05/18 21:30 11/17/18 06:15 Apresoline IV 10 mg Q6HR PRN Administration Hypertension Hydrophilic Ointment 1 applic 11/05/18 16:21 Vaseline Lip Therapy TP Q2HR PRN Dry Lips Dextrose/Sodium Chloride 1,000 mls @ 50 mls/hr 11/15/18 13:00 11/18/18 20:32 D5/0.45ns IV 50 mls/hr DIRECT NIKKO Administration Insulin Human Lispro 0 unit 11/06/18 12:00 11/19/18 13:04 Humalog SUB-Q 1 unit Q6HR NIKKO Administration Protocol Latanoprost 1 drops 11/08/18 18:00 11/18/18 17:35 Latanoprost 0.005% OU 1 drops QPM NIKKO Administration Miscellaneous Medication 1 drop 11/08/18 22:00 11/19/18 10:08 Brimonidine Tartate OP Not Given BID NIKKO Miscellaneous Medication 1 drop 11/16/18 22:00 11/19/18 10:07 Brimonidine Tartrate [Brimonidine Tartrate 0.2%] OP 1 drop BID NIKKO Administration Morphine Sulfate 1 mg 11/14/18 10:52 11/15/18 09:27 Morphine IV 1 mg Q4H PRN Administration Pain , Severe (7-10) Multi-Ingred Cream/Lotion/Oil/Oint 1 applic 11/05/18 16:21 Artificial Tears Ophth Oint OU Q4HR PRN Dry Eye(s) Pravastatin Sodium 20 mg 11/08/18 10:00 11/19/18 10:09 Pravachol PO 20 mg DAILY NIKKO Administration Ropinirole HCl 1 mg 11/08/18 09:00 11/19/18 13:04 Requip PO 1 mg TID NIKKO Administration Simple Syrup 15 ml 11/16/18 07:34 Simple Syrup FEEDTUBE PRN PRN Hypoglycemia Simple Syrup 30 ml 11/16/18 07:34 Simple Syrup FEEDTUBE PRN PRN Hypoglycemia Sodium Bicarbonate 325 mg 11/16/18 07:34 Sodium Bicarbonate FEEDTUBE PRN PRN For Clogged Feeding Tube Sodium Chloride 10 ml 11/05/18 22:00 11/19/18 10:11 Sodium Chloride Flush Syringe 10 Ml IV 10 ml BID NIKKO Administration Sodium Chloride 10 ml 11/05/18 17:52 Sodium Chloride Flush Syringe 10 Ml IV PRN PRN LINE FLUSH Nutrition/Malnutrition Assess - Dietary Evaluation Nutrition/Malnutrition Findings: Nutrition Notes Start: 11/06/18 16:18 Freq: Status: Active Protocol: Document 11/19/18 12:47 JUAN (Rec: 11/19/18 12:57 JUAN [email or web address]) Nutrition Notes Initial or Follow up Reassessment Current Diagnosis Sepsis,Respiratory Failure Other Pertinent Diagnosis Encephalopathy, Dysphagia Current Diet Pureed + TF (Nepro at 30ml/hr) Labs/Tests BUN 23 Cr 1.8 Pertinent Medications Reviewed Height 5 ft 5 in Weight 69.7 kg [place] Body Weight (kg) 56.81 BMI 25.5 Subjective/Other Information [employer] recommended pureed diet yesterday; however, pt does not like the way pureed foods look. She will however, drink ONS. DHT remains in place and TF infusing at 30ml/hr. Burn Absent Trauma Absent #1 Nutrition Diagnosis Inadequate oral intake Diagnosis Progress(for reassessment Continues documentation) Is patient on ventilator? No Is Patient Ambulatory and/or Out of Bed Yes REE-([facility]-ambulatory/OOB) [ [id number] [id number]] Calculation Used for Recommendations [facility] Additional Notes Protein Needs: 70-91g (1-1.3g/ kg) Fluid Needs: 1 ml/kcal Nutrition Intervention Change Diet Order: Continue pureed diet; advance as tolerated Nutrition Support: Nepro at 30ml/hr Flush with 250 ml q4h until hypernatremia resolves Flush with 130 mls q4h once hyperntreamia resolves Kcal 1,296 Protein (gm) 58 Fluid (mL) 539 Goal #1 Diet advancement Goal #2 TF tolerance Goal #3 PO intake + TF to meet at least 75% energy and pro needs Follow-Up By: 11/22/18 Additional Comments F/U: diet advancement, PO intakes
[2018-11-19] MEDS: LATANOPROST 0.005% OU SCH (18:50)
[2018-11-20] MEDS: D5/0.45NS 1,000 ML IV SCH
[2018-11-20] MEDS: HumaLOG SUB-Q SCH ×2 (00:13→13:15)
[2018-11-20 05:46] LABS: Calcium 9.9 mg/dL (8.4-10.2)
[2018-11-20] MEDS: PEPCID PO SCH (11:23)
[2018-11-20] MEDS: NEURONTIN PO SCH ×3 (11:23→22:15)
[2018-11-20] MEDS: COREG PO SCH ×2 (11:23→23:14)
[2018-11-20] MEDS: REQUIP PO SCH ×2 (11:23→13:17)
[2018-11-20] MEDS: PRAVACHOL PO SCH (11:24)
[2018-11-20] MEDS: NON-FORMULARY (Brimonidine Tartrate [Brimonidine Tartrate 0.2%] 1 DROP) OP SCH ×2 (11:25→22:13)
[2018-11-20] MEDS: BRIMONIDINE OP SCH (11:28)
[2018-11-20] MEDS: SODIUM CHLORIDE FLUSH SYRINGE 10 ML IV SCH (11:28)
--- NOTE | 2018-11-20 12:47 | Progress Note ---
Assessment and Plan Patient sleeping and sitting in chair by the side of the bed. Patient resting on 3 litres O2.. O2 satuaration 96%. Patient weak . No acute respiratory distress at rest. - Patient Problems (1) Respiratory failure Current Visit: Yes Status: Acute Qualifiers: Chronicity: acute Respiratory failure complication: unspecified whether with hypoxia or hypercapnia Qualified Code(s): J96.00 - Acute respiratory failure, unspecified whether with hypoxia or hypercapnia Plan to address problem: O2 3 litres via nasal canula. Albuterol/atrovent aerosol treatments q 6 hours. SCDs Continue famotidine. (2) Seizure Current Visit: Yes Status: Acute Plan to address problem: Management as per primary care and neurology. (3) Sepsis Current Visit: Yes Status: Acute Qualifiers: Sepsis type: sepsis due to unspecified organism Qualified Code(s): A41.9 - Sepsis, unspecified organism Plan to address problem: Staph Hominis bacteremia Patient afebrile. No leukocytosis. Patient not on any antibiotics. Management as per primary care and infectious diseases. (4) ARF (acute renal failure) Current Visit: Yes Status: Acute Qualifiers: Acute renal failure type: with acute tubular necrosis Qualified Code(s): N17.0 - Acute kidney failure with tubular necrosis Plan to address problem: Management as per nephrology. (5) Acidosis Current Visit: Yes Status: Acute Plan to address problem: Improved. (6) Encephalopathy Current Visit: Yes Status: Acute Plan to address problem: Management as per primary care and neurology. Subjective Date of service: 11/20/18 Principal diagnosis: Ac hypoxemic Resp Failure ; Possible Seizure; Ac. Met Encephalopathy; BRAD Interval history: Patient sleeping and sitting in chair by the side of the bed. Patient resting on 3 litres O2.. O2 satuaration 96%. Patient weak . No acute respiratory distress at rest. Objective Vital Signs - 12hr 11/20/18 11/20/18 11/20/18 01:00 02:00 03:00 Temperature Pulse Rate 94 H 98 H Pulse Rate [ From Monitor] Respiratory 16 15 Rate Blood Pressure 179/100 165/106 156/65 O2 Sat by Pulse 98 97 91 Oximetry 11/20/18 11/20/18 11/20/18 04:00 05:00 06:00 Temperature 98.0 F Pulse Rate 91 H 88 89 Pulse Rate [ 100 H From Monitor] Respiratory 16 15 14 Rate Blood Pressure 150/61 139/53 139/53 O2 Sat by Pulse 96 96 96 Oximetry 11/20/18 11/20/18 11/20/18 08:00 08:31 12:00 Temperature 98.1 F 97.8 F Pulse Rate Pulse Rate [ From Monitor] Respiratory Rate Blood Pressure O2 Sat by Pulse 96 Oximetry Constitutional: no acute distress, asleep Eyes: non-icteric ENT: oropharynx moist Neck: supple, no lymphadenopathy, no JVD, other (no thyromegaly) Effort: mildly labored Ascultation: Bilateral: diminished breath sounds, rhonchi (bases) Percussion: Bilateral: not dull Cardiovascular: regular rate and rhythm, murmur noted (systolic), other Gastrointestinal: normoactive bowel sounds, soft, non-tender, non-distended Integumentary: normal Extremities: no cyanosis, no edema, pink and warm, pulses normal, no ischemia or petechiae Neurologic: non-focal exam (moves all extremities, obeys onse step commands), pupils equal and round Psychiatric: mood appropriate, affect normal CBC and BMP: 11/19/18 05:01 11/20/18 05:10 ABG, PT/INR, D-dimer: ABG POC ABG pH 7.415 (7.35-7.45) 11/12/18 04:44 POC ABG pCO2 34.0 (35-45) L 11/12/18 04:44 POC ABG pO2 138 (80-105) H 11/12/18 04:44 POC ABG HCO3 21.8 (22-26 mml/L) 11/12/18 04:44 POC ABG Total CO2 23 (23-27mmol/L) 11/12/18 04:44 POC ABG O2 Sat 99 11/12/18 04:44 PT/INR, D-dimer PT 15.2 Sec. (12.2-14.9) H 11/11/18 10:03 INR 1.23 (0.87-1.13) H 11/11/18 10:03 Abnormal lab findings: Abnormal Labs 11/05/18 11/05/18 11/05/18 16:31 16:31 16:31 WBC RBC Hgb Hct Plt Count 139 L [place] % (Auto) Lymph # 0.7 L Seg Neutrophils % 78.8 H PT INR POC ABG pH POC ABG pCO2 POC ABG pO2 Sodium 148 H Potassium 3.2 L Chloride 110.6 H Carbon Dioxide 17 L BUN 18 H Creatinine 1.9 H Glucose 205 H POC Glucose Lactic Acid 8.20 H* Calcium 10.9 H Phosphorus Total Creatine Kinase C-Reactive Protein Total Protein Albumin 3.6 L Urine WBC (Auto) Urine Creatinine Urine Total Protein Salicylates Acetaminophen 11/05/18 11/05/18 11/05/18 16:31 16:31 16:31 WBC RBC Hgb Hct Plt Count [place] % (Auto) Lymph # Seg Neutrophils % PT INR POC ABG pH POC ABG pCO2 POC ABG pO2 Sodium Potassium Chloride Carbon Dioxide BUN Creatinine Glucose POC Glucose Lactic Acid Calcium Phosphorus Total Creatine Kinase < 7 L C-Reactive Protein Total Protein Albumin Urine WBC (Auto) Urine Creatinine Urine Total Protein Salicylates < 0.3 L Acetaminophen < 5.0 L 11/05/18 11/05/18 11/05/18 17:29 17:42 20:47 WBC RBC Hgb Hct Plt Count [place] % (Auto) Lymph # Seg Neutrophils % PT INR POC ABG pH POC ABG pCO2 33.4 L POC ABG pO2 136 H Sodium Potassium Chloride Carbon Dioxide BUN Creatinine Glucose POC Glucose Lactic Acid 3.30 H* Calcium Phosphorus Total Creatine Kinase C-Reactive Protein Total Protein Albumin Urine WBC (Auto) 19.0 H Urine Creatinine Urine Total Protein Salicylates Acetaminophen 11/05/18 11/05/18 11/06/18 20:47 22:42 04:09 WBC 4.4 L RBC Hgb Hct Plt Count 102 L [place] % (Auto) 13.2 H Lymph # 1.0 L Seg Neutrophils % PT INR POC ABG pH POC ABG pCO2 POC ABG pO2 Sodium Potassium Chloride Carbon Dioxide BUN Creatinine Glucose POC Glucose 121 H Lactic Acid Calcium Phosphorus Total Creatine Kinase C-Reactive Protein Total Protein Albumin Urine WBC (Auto) Urine Creatinine 166.9 H Urine Total Protein Salicylates Acetaminophen 11/06/18 11/06/18 11/06/18 04:09 05:05 07:31 WBC RBC Hgb Hct Plt Count [place] % (Auto) Lymph # Seg Neutrophils % PT INR POC ABG pH 7.509 H POC ABG pCO2 < 30 L POC ABG pO2 115 H Sodium 150 H Potassium 2.7 L* Chloride 118.2 H Carbon Dioxide 21 L BUN 21 H Creatinine 1.6 H Glucose 125 H POC Glucose Lactic Acid 2.50 H* Calcium Phosphorus Total Creatine Kinase C-Reactive Protein Total Protein 5.7 L Albumin 3.1 L Urine WBC (Auto) Urine Creatinine Urine Total Protein Salicylates Acetaminophen 11/06/18 11/06/18 11/06/18 12:04 16:21 18:04 WBC RBC Hgb Hct Plt Count [place] % (Auto) Lymph # Seg Neutrophils % PT INR POC ABG pH POC ABG pCO2 POC ABG pO2 Sodium Potassium 5.4 H D Chloride Carbon Dioxide BUN Creatinine Glucose POC Glucose 122 H 110 H Lactic Acid Calcium Phosphorus Total Creatine Kinase C-Reactive Protein Total Protein Albumin Urine WBC (Auto) Urine Creatinine Urine Total Protein Salicylates Acetaminophen 11/06/18 11/06/18 11/07/18 21:28 Unknown 04:02 WBC RBC Hgb Hct Plt Count [place] % (Auto) Lymph # Seg Neutrophils % PT INR POC ABG pH POC ABG pCO2 POC ABG pO2 Sodium 152 H Potassium Chloride 123.4 H Carbon Dioxide 20 L BUN 23 H Creatinine 1.5 H Glucose 111 H POC Glucose 125 H Lactic Acid Calcium Phosphorus 1.00 L Total Creatine Kinase C-Reactive Protein Total Protein Albumin Urine WBC (Auto) Urine Creatinine 155.8 H Urine Total Protein 68 H Salicylates Acetaminophen 11/07/18 11/07/18 11/07/18 09:07 11:05 15:48 WBC 4.1 L RBC 3.62 L Hgb Hct Plt Count 77 L [place] % (Auto) Lymph # Seg Neutrophils % PT INR POC ABG pH 7.314 L POC ABG pCO2 POC ABG pO2 Sodium Potassium Chloride Carbon Dioxide BUN Creatinine Glucose POC Glucose Lactic Acid Calcium Phosphorus Total Creatine Kinase C-Reactive Protein 3.50 H Total Protein Albumin Urine WBC (Auto) Urine Creatinine Urine Total Protein Salicylates Acetaminophen 11/08/18 11/08/18 11/08/18 04:27 05:29 12:27 WBC RBC Hgb Hct Plt Count [place] % (Auto) Lymph # Seg Neutrophils % PT INR POC ABG pH POC ABG pCO2 33.4 L POC ABG pO2 78 L Sodium 146 H Potassium Chloride 117.1 H Carbon Dioxide 18 L BUN 19 H Creatinine 1.6 H Glucose 111 H POC Glucose 108 H Lactic Acid Calcium Phosphorus Total Creatine Kinase C-Reactive Protein Total Protein Albumin Urine WBC (Auto) Urine Creatinine Urine Total Protein Salicylates Acetaminophen 11/08/18 11/08/18 11/08/18 12:27 18:11 23:50 WBC RBC Hgb Hct Plt Count [place] % (Auto) Lymph # Seg Neutrophils % PT INR POC ABG pH POC ABG pCO2 POC ABG pO2 Sodium Potassium Chloride Carbon Dioxide BUN Creatinine Glucose POC Glucose 188 H 126 H 149 H Lactic Acid Calcium Phosphorus Total Creatine Kinase C-Reactive Protein Total Protein Albumin Urine WBC (Auto) Urine Creatinine Urine Total Protein Salicylates Acetaminophen 11/09/18 11/09/18 11/09/18 03:32 04:12 04:12 WBC 3.6 L RBC 2.99 L Hgb 8.8 L Hct 26.9 L Plt Count 81 L [place] % (Auto) Lymph # Seg Neutrophils % PT INR POC ABG pH 7.329 L POC ABG pCO2 POC ABG pO2 Sodium Potassium Chloride 114.8 H Carbon Dioxide 20 L BUN 28 H Creatinine 1.9 H Glucose 144 H POC Glucose Lactic Acid Calcium 8.2 L Phosphorus Total Creatine Kinase C-Reactive Protein Total Protein Albumin Urine WBC (Auto) Urine Creatinine Urine Total Protein Salicylates Acetaminophen 11/09/18 11/09/18 11/09/18 05:24 12:59 17:59 WBC RBC Hgb Hct Plt Count [place] % (Auto) Lymph # Seg Neutrophils % PT INR POC ABG pH POC ABG pCO2 POC ABG pO2 Sodium Potassium Chloride Carbon Dioxide BUN Creatinine Glucose POC Glucose 163 H 175 H 116 H Lactic Acid Calcium Phosphorus Total Creatine Kinase C-Reactive Protein Total Protein Albumin Urine WBC (Auto) Urine Creatinine Urine Total Protein Salicylates Acetaminophen 11/10/18 11/10/18 11/10/18 00:45 03:57 06:45 WBC RBC Hgb Hct Plt Count [place] % (Auto) Lymph # Seg Neutrophils % PT INR POC ABG pH 7.332 L POC ABG pCO2 POC ABG pO2 Sodium Potassium Chloride Carbon Dioxide BUN Creatinine Glucose POC Glucose 201 H 148 H Lactic Acid Calcium Phosphorus Total Creatine Kinase C-Reactive Protein Total Protein Albumin Urine WBC (Auto) Urine Creatinine Urine Total Protein Salicylates Acetaminophen 11/10/18 11/10/18 11/10/18 09:52 09:52 12:36 WBC RBC 3.48 L Hgb Hct Plt Count 103 L [place] % (Auto) 14.8 H Lymph # 0.6 L Seg Neutrophils % PT INR POC ABG pH POC ABG pCO2 POC ABG pO2 Sodium Potassium Chloride 109.3 H Carbon Dioxide 21 L BUN 36 H Creatinine 2.1 H Glucose 134 H POC Glucose 142 H Lactic Acid Calcium Phosphorus Total Creatine Kinase C-Reactive Protein Total Protein Albumin Urine WBC (Auto) Urine Creatinine Urine Total Protein Salicylates Acetaminophen 11/10/18 11/10/18 11/11/18 17:31 23:34 05:01 WBC 4.1 L RBC 3.11 L Hgb 9.1 L Hct 27.7 L Plt Count 97 L [place] % (Auto) Lymph # Seg Neutrophils % PT INR POC ABG pH POC ABG pCO2 POC ABG pO2 Sodium Potassium Chloride Carbon Dioxide BUN Creatinine Glucose POC Glucose 152 H 163 H Lactic Acid Calcium Phosphorus Total Creatine Kinase C-Reactive Protein Total Protein Albumin Urine WBC (Auto) Urine Creatinine Urine Total Protein Salicylates Acetaminophen 11/11/18 11/11/18 11/11/18 05:01 05:34 10:03 WBC RBC Hgb Hct Plt Count [place] % (Auto) Lymph # Seg Neutrophils % PT 15.2 H INR 1.23 H POC ABG pH POC ABG pCO2 POC ABG pO2 Sodium Potassium 5.3 H Chloride 108.2 H Carbon Dioxide 21 L BUN 39 H Creatinine 2.2 H Glucose 155 H POC Glucose 159 H Lactic Acid Calcium Phosphorus Total Creatine Kinase C-Reactive Protein Total Protein Albumin Urine WBC (Auto) Urine Creatinine Urine Total Protein Salicylates Acetaminophen 11/11/18 11/11/18 11/11/18 12:36 17:00 17:25 WBC RBC Hgb Hct Plt Count [place] % (Auto) Lymph # Seg Neutrophils % PT INR POC ABG pH POC ABG pCO2 POC ABG pO2 121 H Sodium Potassium Chloride Carbon Dioxide BUN Creatinine Glucose POC Glucose 147 H 116 H Lactic Acid Calcium Phosphorus Total Creatine Kinase C-Reactive Protein Total Protein Albumin Urine WBC (Auto) Urine Creatinine Urine Total Protein Salicylates Acetaminophen 11/11/18 11/11/18 11/12/18 20:33 23:46 04:28 WBC RBC 3.26 L Hgb 9.6 L Hct 29.2 L Plt Count 126 L [place] % (Auto) Lymph # Seg Neutrophils % PT INR POC ABG pH 7.247 L POC ABG pCO2 53.6 H POC ABG pO2 Sodium Potassium Chloride Carbon Dioxide BUN Creatinine Glucose POC Glucose 130 H Lactic Acid Calcium Phosphorus Total Creatine Kinase C-Reactive Protein Total Protein Albumin Urine WBC (Auto) Urine Creatinine Urine Total Protein Salicylates Acetaminophen 11/12/18 11/12/18 11/13/18 04:28 04:44 04:49 WBC RBC 2.89 L Hgb 8.6 L Hct 25.7 L Plt Count 133 L [place] % (Auto) Lymph # Seg Neutrophils % PT INR POC ABG pH POC ABG pCO2 34.0 L POC ABG pO2 138 H Sodium Potassium 5.2 H Chloride 109.9 H Carbon Dioxide 20 L BUN 40 H Creatinine 2.2 H Glucose 112 H POC Glucose Lactic Acid Calcium Phosphorus Total Creatine Kinase C-Reactive Protein Total Protein 5.9 L Albumin 2.5 L Urine WBC (Auto) Urine Creatinine Urine Total Protein Salicylates Acetaminophen 11/13/18 11/13/18 11/14/18 04:49 11:27 04:19 WBC RBC 3.32 L Hgb 9.7 L Hct 29.8 L Plt Count [place] % (Auto) Lymph # Seg Neutrophils % PT INR POC ABG pH POC ABG pCO2 POC ABG pO2 Sodium Potassium 5.1 H Chloride 113.7 H Carbon Dioxide 21 L BUN 44 H Creatinine 2.3 H Glucose POC Glucose Lactic Acid Calcium Phosphorus Total Creatine Kinase C-Reactive Protein Total Protein Albumin Urine WBC (Auto) Urine Creatinine 45.0 H Urine Total Protein Salicylates Acetaminophen 11/14/18 11/14/18 11/15/18 04:19 17:45 04:00 WBC RBC Hgb Hct Plt Count [place] % (Auto) Lymph # Seg Neutrophils % PT INR POC ABG pH POC ABG pCO2 POC ABG pO2 Sodium 147 H 150 H Potassium Chloride 114.8 H 118.9 H Carbon Dioxide 18 L 18 L BUN 44 H 45 H Creatinine 2.2 H 2.3 H Glucose POC Glucose 68 L Lactic Acid Calcium Phosphorus Total Creatine Kinase C-Reactive Protein Total Protein Albumin Urine WBC (Auto) Urine Creatinine Urine Total Protein Salicylates Acetaminophen 11/15/18 11/16/18 11/16/18 05:30 00:03 01:19 WBC RBC 3.19 L Hgb 9.4 L Hct 29.3 L Plt Count [place] % (Auto) Lymph # Seg Neutrophils % PT INR POC ABG pH POC ABG pCO2 POC ABG pO2 Sodium Potassium Chloride Carbon Dioxide BUN Creatinine Glucose POC Glucose 122 H 115 H Lactic Acid Calcium Phosphorus Total Creatine Kinase C-Reactive Protein Total Protein Albumin Urine WBC (Auto) Urine Creatinine Urine Total Protein Salicylates Acetaminophen 11/16/18 11/16/18 11/16/18 05:07 11:07 12:13 WBC RBC Hgb Hct Plt Count [place] % (Auto) Lymph # Seg Neutrophils % PT INR POC ABG pH POC ABG pCO2 POC ABG pO2 Sodium 151 H Potassium Chloride 119.5 H Carbon Dioxide BUN 39 H Creatinine 2.2 H Glucose 123 H POC Glucose 110 H 146 H Lactic Acid Calcium Phosphorus Total Creatine Kinase C-Reactive Protein Total Protein Albumin Urine WBC (Auto) Urine Creatinine Urine Total Protein Salicylates Acetaminophen 11/16/18 11/17/18 11/17/18 18:02 00:00 05:51 WBC RBC Hgb Hct Plt Count [place] % (Auto) Lymph # Seg Neutrophils % PT INR POC ABG pH POC ABG pCO2 POC ABG pO2 Sodium Potassium Chloride Carbon Dioxide BUN Creatinine Glucose POC Glucose 129 H 111 H 137 H Lactic Acid Calcium Phosphorus Total Creatine Kinase C-Reactive Protein Total Protein Albumin Urine WBC (Auto) Urine Creatinine Urine Total Protein Salicylates Acetaminophen 11/17/18 11/17/18 11/17/18 12:01 12:22 17:45 WBC RBC Hgb Hct Plt Count [place] % (Auto) Lymph # Seg Neutrophils % PT INR POC ABG pH POC ABG pCO2 POC ABG pO2 Sodium 146 H Potassium Chloride 115.1 H Carbon Dioxide BUN 35 H Creatinine 2.0 H Glucose 142 H POC Glucose 139 H 132 H Lactic Acid Calcium Phosphorus Total Creatine Kinase C-Reactive Protein Total Protein Albumin Urine WBC (Auto) Urine Creatinine Urine Total Protein Salicylates Acetaminophen 11/18/18 11/18/18 11/18/18 00:11 05:32 11:39 WBC RBC Hgb Hct Plt Count [place] % (Auto) Lymph # Seg Neutrophils % PT INR POC ABG pH POC ABG pCO2 POC ABG pO2 Sodium Potassium Chloride Carbon Dioxide BUN Creatinine Glucose POC Glucose 159 H 140 H 153 H Lactic Acid Calcium Phosphorus Total Creatine Kinase C-Reactive Protein Total Protein Albumin Urine WBC (Auto) Urine Creatinine Urine Total Protein Salicylates Acetaminophen 11/18/18 11/18/18 11/18/18 16:22 16:22 17:25 WBC RBC 2.85 L Hgb 8.4 L Hct 25.7 L Plt Count [place] % (Auto) Lymph # Seg Neutrophils % PT INR POC ABG pH POC ABG pCO2 POC ABG pO2 Sodium Potassium Chloride 110.7 H Carbon Dioxide BUN 30 H Creatinine 1.7 H Glucose 145 H POC Glucose 150 H Lactic Acid Calcium Phosphorus Total Creatine Kinase C-Reactive Protein Total Protein Albumin Urine WBC (Auto) Urine Creatinine Urine Total Protein Salicylates Acetaminophen 11/18/18 11/19/18 11/19/18 23:44 05:01 05:01 WBC RBC 2.94 L Hgb 8.5 L Hct 26.5 L Plt Count [place] % (Auto) Lymph # Seg Neutrophils % PT INR POC ABG pH POC ABG pCO2 POC ABG pO2 Sodium Potassium Chloride 108.0 H Carbon Dioxide BUN 23 H Creatinine 1.8 H Glucose 103 H POC Glucose 153 H Lactic Acid Calcium Phosphorus Total Creatine Kinase C-Reactive Protein Total Protein Albumin Urine WBC (Auto) Urine Creatinine Urine Total Protein Salicylates Acetaminophen 11/19/18 11/19/18 11/19/18 05:27 12:30 18:31 WBC RBC Hgb Hct Plt Count [place] % (Auto) Lymph # Seg Neutrophils % PT INR POC ABG pH POC ABG pCO2 POC ABG pO2 Sodium Potassium Chloride Carbon Dioxide BUN Creatinine Glucose POC Glucose 122 H 169 H 139 H Lactic Acid Calcium Phosphorus Total Creatine Kinase C-Reactive Protein Total Protein Albumin Urine WBC (Auto) Urine Creatinine Urine Total Protein Salicylates Acetaminophen 11/19/18 11/20/18 11/20/18 23:26 05:10 05:47 WBC RBC Hgb Hct Plt Count [place] % (Auto) Lymph # Seg Neutrophils % PT INR POC ABG pH POC ABG pCO2 POC ABG pO2 Sodium 136 L Potassium Chloride Carbon Dioxide BUN 30 H Creatinine 1.8 H Glucose 129 H POC Glucose 146 H 136 H Lactic Acid Calcium Phosphorus Total Creatine Kinase C-Reactive Protein Total Protein Albumin Urine WBC (Auto) Urine Creatinine Urine Total Protein Salicylates Acetaminophen 11/20/18 12:01 WBC RBC Hgb Hct Plt Count [place] % (Auto) Lymph # Seg Neutrophils % PT INR POC ABG pH POC ABG pCO2 POC ABG pO2 Sodium Potassium Chloride Carbon Dioxide BUN Creatinine Glucose POC Glucose 170 H Lactic Acid Calcium Phosphorus Total Creatine Kinase C-Reactive Protein Total Protein Albumin Urine WBC (Auto) Urine Creatinine Urine Total Protein Salicylates Acetaminophen Allied health notes reviewed: nursing
--- NOTE | 2018-11-20 17:31 | Progress Note ---
Assessment and Plan Assessment and plan: Patient is a 82 yo woman (No prior admission here for review, first visit in our EMR. Also, her is in Hospice for metastatic cancer per son Lauro) with a history of hypertension, dyslipidemia, OA s/p bilateral TKR and possible CHF who presented to [facility] ED with AMS. Apparently, patient was found unresponsive in the bed and seizing. On EMS arrival patient was noted to have a GCS of 3 and was placed on oxygen mask and intubated in the ED on arrival 11/05/18. Initial Temp was noted as 102.2. In the ED patient was intubated due to AMS and Acute Hypoxemic Respiratory Failure, and is unable to protect her airway, Teleneurology consulted in ED. Pt deemed not a candidate for TPA. Initially pCXR on 11/05/18 showed ETT in good position, no other significant findings, CT abd/pelvis without contrast showed mild bibasilar lung atelectasis as well as mildly distended gallbladder with minimal cholelithiasis. 11/10/18 pCXR showed developing Atelectasis and bilateral pleural effusion. Then pCXR on 11/11/18 showed increasing pleural parenchymal opacity LLL. Patient was eventually extubated on 11/11/18 and placed on bipap 50%. Then on 11/13/18 bipap removed in AM and patient transferred out of the ICU to [facility]. * Renal us: Small left renal cyst, negative for obstruction or mass * MRI Head: negative for acute pathology * Culture: Staph homis in blood * MSSA trach culture * CT chest wo contrast 11/11/18 IMPRESSION: Small pleural effusions, left greater than right. Basilar consolidation is probably secondary to atelectasis and less likely pneumonia. The remainder of the lungs appear clear. * 11/07/18 2D ECHO Conclusions: Mild to moderate concentric LVH, est EF 40-45%, left ventricular diastolic filling pattern is c/w pseudonormalization, RVSF mildly reduced, mild TR, small pericardial effusion, circumferential, no evidence of tamponade Acute hypoxic respiratory failure >96 hours, poa: currently extubated on Sunday11/11/18, off Bipap, NOW ON nc AND with good saturation and Pulm is following MSSA Sepsis Left Lobar Pneumonia: treated with Abx, ID following. Staph Hominis Bacteremia: Repeat blood cultures negative, ID following Hyperkalemia: treated with kayexalate and monitor bmp closely, Nephrology is following Acute cystitis: treated with Abx, monitor bmp closely Hypertensive Urgency: Resume Coreg, Hydrazine Status Epilepticus, poa: Neurology is following, treat with prn IV ativan Lactic Acidosis, treat with renal failure Hypernatermia resolved: monitor bmp closely Acute Metabolic Encephalopathy Thrombocytopenia; improving, monitor CBC closely ARF due to suspect ATN, poa: Nephrology following. Dysphagia, failed swallow evaluation initally, but now cleared for gi soft: dobhuff and speech therapy ICU deconditioning: order pt/ot [place] removed after 24hr urine collection with a Purex in right EJ removed, midline placed Left arm swollen: venous doppler ordered which was negative for DVT D/C to LTACH once accepted I called [employer] @ then pressed 5, left my number for call back and no one called me back d/w daughter Urmila at bedside Per CM. Ltac Was denied by insurance company, now working on acute rehab Discussed with Nursing staff HOLD OFF REPLACING NGT AND CONTINUE PO DIET TOLERATED History Interval history: Patient was seen and examined. Follow-up on current diagnosis of AMS and respiratory failure. No overnight events reported to me. Imaging, nursing note, chart, labs and old chart reviewed. clinically improving, off high flow and also NGT disloged, patient tolerating some diet. Hospitalist Physical - Physical exam Narrative exam: Gen: ill appearing, mild increase in accessory muscles, off bipap on NC,more awake today, sitting up by the chair HEENT: NCAT, EOMI, PERRL, OP Clear Neck: supple, no adenopathy, no thyromegaly, no JVD CVS/Heart: Regular tachycardia normal S1S2, pulses present bilaterally Chest/Lungs: tachypneic, diminished bs bilatearal, Symmetrical chest expansion, good air entry bilaterally GI/Abdomen: soft, NTND, good bowel sounds, no guarding or rebound /Bladder: no suprapubic tenderness, no CVA or paraspinal tenderness Extermity/Skin: dependent edema, pale skin MSK: doesn't follow commands Neuro: CN 2-12 grossly intact, not following commands Psych: calm - Constitutional Vitals: Temp Pulse Resp BP Pulse Ox 97.9 F 89 14 139/53 96 11/20/18 16:00 11/20/18 06:00 11/20/18 06:00 11/20/18 06:00 11/20/18 08:31 General appearance: Absent: severe distress Results - Labs CBC & Chem 7: 11/19/18 05:01 11/20/18 05:10 Labs: Laboratory Last Values WBC 5.2 K/mm3 (4.5-11.0) 11/19/18 05:01 RBC 2.94 M/mm3 (3.65-5.03) L 11/19/18 05:01 Hgb 8.5 gm/dl (10.1-14.3) L 11/19/18 05:01 Hct 26.5 % (30.3-42.9) L 11/19/18 05:01 MCV 90 fl (79-97) 11/19/18 05:01 MCH 29 pg (28-32) 11/19/18 05:01 MCHC 32 % (30-34) 11/19/18 05:01 RDW 14.5 % (13.2-15.2) 11/19/18 05:01 Plt Count 159 K/mm3 (140-440) 11/19/18 05:01 Lymph % (Auto) 13.4 % (13.4-35.0) 11/10/18 09:52 [place] % (Auto) 14.8 % (0.0-7.3) H 11/10/18 09:52 Eos % (Auto) 1.6 % (0.0-4.3) 11/10/18 09:52 Baso % (Auto) 0.3 % (0.0-1.8) 11/10/18 09:52 Lymph # 0.6 K/mm3 (1.2-5.4) L 11/10/18 09:52 [place] # 0.7 K/mm3 (0.0-0.8) 11/10/18 09:52 Eos # 0.1 K/mm3 (0.0-0.4) 11/10/18 09:52 Baso # 0.0 K/mm3 (0.0-0.1) 11/10/18 09:52 Seg Neutrophils % 69.9 % (40.0-70.0) 11/10/18 09:52 Seg Neutrophils # 3.2 K/mm3 (1.8-7.7) 11/10/18 09:52 PT 15.2 Sec. (12.2-14.9) H 11/11/18 10:03 INR 1.23 (0.87-1.13) H 11/11/18 10:03 APTT 31.8 Sec. (24.2-36.6) 11/11/18 10:03 Heparin Anti-Xa, Unfract Negative (Negative) 11/08/18 13:49 POC ABG pH 7.415 (7.35-7.45) 11/12/18 04:44 POC ABG pCO2 34.0 (35-45) L 11/12/18 04:44 POC ABG pO2 138 (80-105) H 11/12/18 04:44 POC ABG HCO3 21.8 (22-26 mml/L) 11/12/18 04:44 POC ABG Total CO2 23 (23-27mmol/L) 11/12/18 04:44 POC ABG O2 Sat 99 11/12/18 04:44 POC ABG Base Excess -3 ((-2) - (+3)mmol/L) 11/12/18 04:44 30 % 11/12/18 04:44 Sodium 136 mmol/L (137-145) L 11/20/18 05:10 Potassium 4.2 mmol/L (3.6-5.0) 11/20/18 05:10 Chloride 104.7 mmol/L (98-107) 11/20/18 05:10 Carbon Dioxide 24 mmol/L (22-30) 11/20/18 05:10 12 mmol/L 11/20/18 05:10 BUN 30 mg/dL (7-17) H 11/20/18 05:10 1.8 mg/dL (0.7-1.2) H 11/20/18 05:10 Estimated GFR 27 ml/min 11/20/18 05:10 17 % 11/20/18 05:10 Glucose 129 mg/dL (65-100) H 11/20/18 05:10 POC Glucose 170 (70-105) H 11/20/18 12:01 Lactic Acid 0.70 mmol/L (0.7-2.0) 11/09/18 04:12 Calcium 9.9 mg/dL (8.4-10.2) 11/20/18 05:10 Phosphorus 3.00 mg/dL (2.5-4.5) D 11/08/18 04:27 Magnesium 2.20 mg/dL (1.7-2.3) 11/05/18 16:31 0.40 mg/dL (0.1-1.2) 11/12/18 04:28 AST 27 units/L (5-40) 11/12/18 04:28 ALT 24 units/L (7-56) 11/12/18 04:28 66 units/L (35-129) 11/12/18 04:28 44.0 umol/L (25-60) 11/05/18 17:28 < 7 units/L (30-135) L 11/05/18 16:31 0.019 ng/mL (0.00-0.029) 11/05/18 16:31 3.50 mg/dL (0.00-1.30) H 11/07/18 15:48 5.9 g/dL (6.3-8.2) L 11/12/18 04:28 2.5 g/dL (3.9-5) L 11/12/18 04:28 0.7 % 11/12/18 04:28 See scanned result 11/08/18 13:49 TSH 0.972 mlU/mL (0.270-4.200) 11/05/18 16:31 Yellow (Yellow) 11/05/18 20:47 Slightly-cloudy (Clear) 11/05/18 20:47 5.0 (5.0-7.0) 11/05/18 20:47 Ur Specific [place] 1.016 (1.003-1.030) 11/05/18 20:47 100 mg/dl mg/dL (Negative) 11/05/18 20:47 50 mg/dL (Negative) 11/05/18 20:47 Neg mg/dL (Negative) 11/05/18 20:47 Sm (Negative) 11/05/18 20:47 Pos (Negative) 11/05/18 20:47 Neg (Negative) 11/05/18 20:47 < 2.0 mg/dL (<2.0) 11/05/18 20:47 Ur Leukocyte Esterase Tr (Negative) 11/05/18 20:47 19.0 /HPF (0.0-6.0) H 11/05/18 20:47 4.0 /HPF (0.0-6.0) 11/05/18 20:47 U Epithel Cells (Auto) 1.0 /HPF (0-13.0) 11/05/18 20:47 Few /HPF 11/05/18 20:47 None seen (None Seen) 11/06/18 14:48 2800 ml 11/13/18 11:27 45.0 mg/dL (0.1-20.0) H 11/13/18 11:27 Height (in) 65.0 inches 11/13/18 11:27 Weight (lb) 153.7 lbs 11/13/18 11:27 37 11/13/18 11:27 40 mmol/L 11/06/18 Unknown 68 mg/dL (5-11.8) H 11/06/18 Unknown Clear 11/11/18 Unknown Colorless 11/11/18 Unknown 10 /mm3 (1-10) 11/11/18 Unknown 22 /mm3 (0-0) 11/11/18 Unknown CSF Seg Neutrophils 0 % (0-6) 11/11/18 Unknown 37.8 % (40-80) 11/11/18 Unknown CSF Reactive Lymphs 0 % 11/11/18 Unknown 62.2 % (15-45) 11/11/18 Unknown 0 % 11/11/18 Unknown 0 % 11/11/18 Unknown C 11/11/18 Unknown 77 mg/dL 11/11/18 Unknown 57 mg/dL 11/11/18 Unknown Vancomycin Trough 17.5 ug/mL (5.0-20.0) 11/08/18 21:16 Random Vancomycin 22.4 ug/mL (0-40.0) 11/11/18 05:01 Salicylates < 0.3 mg/dL (2.8-20.0) L 11/05/18 16:31 Acetaminophen < 5.0 ug/mL (10.0-30.0) L 11/05/18 16:31 Plasma/Serum Alcohol < 0.01 % (0-0.07) 07/09/19 16:31 Heparin-induced Plt Ab Negative (Negative) 11/08/18 13:49 UF Heparin High Dose 0 % Release 11/08/18 13:49 KIANNA UFH Low Dose 0.1 0 % Release 11/08/18 13:49 KIANNA UFH Low Dose 0.5 0 % Release 11/08/18 13:49 Active Medications - Current Medications Current Medications: Generic Name Dose Route Start Last Admin Trade Name Freq PRN Reason Stop Dose Admin Acetaminophen 650 mg 11/14/18 10:52 Tylenol PO Q6H PRN Non Cardiac Pain or Temp>100.5 Albuterol 2.5 mg 11/05/18 17:52 11/12/18 20:15 Proventil IH 2.5 mg Q3HRT PRN Administration Shortness Of Breath Lipase/Protease/Amylase 1 each 11/16/18 07:[address] 10,500 Unit FEEDTUBE PRN PRN For Clogged Feeding Tube Carvedilol 6.25 mg 11/09/18 11:00 11/20/18 11:23 Coreg PO 6.25 mg BID NIKKO Administration Dextrose 50 ml 11/05/18 17:59 D50w (25gm) Syringe IV PRN PRN Hypoglycemia Famotidine 20 mg 11/11/18 10:00 11/20/18 11:23 Pepcid PO 20 mg DAILY NIKKO Administration Gabapentin 800 mg 11/08/18 10:00 11/20/18 11:29 Neurontin PO 800 mg BID NIKKO Administration Hydralazine HCl 10 mg 11/05/18 21:30 11/17/18 06:15 Apresoline IV 10 mg Q6HR PRN Administration Hypertension Hydrophilic Ointment 1 applic 11/05/18 16:21 Vaseline Lip Therapy TP Q2HR PRN Dry Lips Dextrose/Sodium Chloride 1,000 mls @ 50 mls/hr 11/15/18 13:00 11/20/18 00:00 D5/0.45ns IV 50 mls/hr DIRECT NIKKO Administration Insulin Human Lispro 0 unit 11/06/18 12:00 11/20/18 13:15 Humalog SUB-Q 2 unit Q6HR NIKKO Administration Protocol Latanoprost 1 drops 11/08/18 18:00 11/19/18 18:50 Latanoprost 0.005% OU 1 drops QPM NIKKO Administration Miscellaneous Medication 1 drop 11/08/18 22:00 11/20/18 11:28 Brimonidine Tartate OP Not Given BID NIKKO Miscellaneous Medication 1 drop 11/16/18 22:00 11/20/18 11:25 Brimonidine Tartrate [Brimonidine Tartrate 0.2%] OP 1 drop BID NIKKO Administration Morphine Sulfate 1 mg 11/14/18 10:52 11/15/18 09:27 Morphine IV 1 mg Q4H PRN Administration Pain , Severe (7-10) Multi-Ingred Cream/Lotion/Oil/Oint 1 applic 11/05/18 16:21 Artificial Tears Ophth Oint OU Q4HR PRN Dry Eye(s) Pravastatin Sodium 20 mg 11/08/18 10:00 11/20/18 11:24 Pravachol PO 20 mg DAILY NIKKO Administration Ropinirole HCl 1 mg 11/08/18 09:00 11/20/18 13:17 Requip PO 1 mg TID NIKKO Administration Simple Syrup 15 ml 11/16/18 07:34 Simple Syrup FEEDTUBE PRN PRN Hypoglycemia Simple Syrup 30 ml 11/16/18 07:34 Simple Syrup FEEDTUBE PRN PRN Hypoglycemia Sodium Bicarbonate 325 mg 11/16/18 07:34 Sodium Bicarbonate FEEDTUBE PRN PRN For Clogged Feeding Tube Sodium Chloride 10 ml 11/05/18 22:00 11/20/18 11:28 Sodium Chloride Flush Syringe 10 Ml IV 10 ml BID NIKKO Administration Sodium Chloride 10 ml 11/05/18 17:52 Sodium Chloride Flush Syringe 10 Ml IV PRN PRN LINE FLUSH Nutrition/Malnutrition Assess - Dietary Evaluation Nutrition/Malnutrition Findings: Nutrition Notes Start: 11/06/18 16:18 Freq: Status: Active Protocol: Document 11/19/18 12:47 JUAN (Rec: 11/19/18 12:57 JUAN [email or web address]) Nutrition Notes Initial or Follow up Reassessment Current Diagnosis Sepsis,Respiratory Failure Other Pertinent Diagnosis Encephalopathy, Dysphagia Current Diet Pureed + TF (Nepro at 30ml/hr) Labs/Tests BUN 23 Cr 1.8 Pertinent Medications Reviewed Height 5 ft 5 in Weight 69.7 kg [place] Body Weight (kg) 56.81 BMI 25.5 Subjective/Other Information [employer] recommended pureed diet yesterday; however, pt does not like the way pureed foods look. She will however, drink ONS. DHT remains in place and TF infusing at 30ml/hr. Burn Absent Trauma Absent #1 Nutrition Diagnosis Inadequate oral intake Diagnosis Progress(for reassessment Continues documentation) Is patient on ventilator? No Is Patient Ambulatory and/or Out of Bed Yes REE-([place]-ambulatory/OOB) [ [id number] [id number]] Calculation Used for Recommendations [facility] Additional Notes Protein Needs: 70-91g (1-1.3g/ kg) Fluid Needs: 1 ml/kcal Nutrition Intervention Change Diet Order: Continue pureed diet; advance as tolerated Nutrition Support: Nepro at 30ml/hr Flush with 250 ml q4h until hypernatremia resolves Flush with 130 mls q4h once hyperntreamia resolves Kcal 1,296 Protein (gm) 58 Fluid (mL) 539 Goal #1 Diet advancement Goal #2 TF tolerance Goal #3 PO intake + TF to meet at least 75% energy and pro needs Follow-Up By: 11/22/18 Additional Comments F/U: diet advancement, PO intakes
[2018-11-21 06:00] LABS: Calcium 10.1 mg/dL (8.4-10.2)
[2018-11-21] MEDS: REQUIP PO SCH ×4 (08:40→20:44)
[2018-11-21] MEDS: NON-FORMULARY (Brimonidine Tartrate [Brimonidine Tartrate 0.2%] 1 DROP) OP SCH ×2 (10:59→21:48)
[2018-11-21] MEDS: BRIMONIDINE OP SCH ×3 (11:00→21:49)
[2018-11-21] MEDS: COREG PO SCH ×2 (11:01→21:44)
[2018-11-21] MEDS: NEURONTIN PO SCH ×2 (11:01→21:44)
[2018-11-21] MEDS: SODIUM CHLORIDE FLUSH SYRINGE 10 ML IV SCH ×3 (11:01→21:46)
[2018-11-21] MEDS: PRAVACHOL PO SCH (11:02)
[2018-11-21] MEDS: PEPCID PO SCH (11:02)
[2018-11-21] MEDS: HumaLOG SUB-Q SCH ×5 (12:30→21:48)
[2018-11-21] MEDS: LATANOPROST 0.005% OU SCH ×2 (14:43→17:50)
--- NOTE | 2018-11-21 15:27 | Progress Note ---
Assessment and Plan Acute Respiratory Failure with Hypoxia Gram positive bacteremia (in clusters) Possible Seizure Lactic Acidosis Hypernatermia Acute Metabolic Encephalopathy BRAD possible secondary to Ischemic ATN Thrombocytopenia Hypokalemia - give daytime breaks off BIPAP as tolerated (Scheduled BIPAP qhs) - continue aspiration precautions - ST evaluation ongoing and advance diet per ST rec's - continue supplemental oxygen as needed to keep O2 sat's > 90% - continue lung protective strategies - continue to avoid sedatives - Coreg reduced further to 6.25 mg bid - MRI negative for acute process - 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 re-evaluate in am & prn .... OK to transfer to Acute rehabilitation if meets their criteria CODE STATUS: FULL CODE Subjective Date of service: 11/21/18 Principal diagnosis: Ac hypoxemic Resp Failure ; Possible Seizure; Ac. Met Encephalopathy; BRAD Interval history: Patient is seen today for: Acute Respiratory Failure with Hypoxemia; Gram positive bacteremia (in clusters); Possible Seizure; Lactic Acidosis; Hypernatermia; Acute Metabolic Encephalopathy; BRAD possible secondary to Ischemic ATN Seen and examined at bedside; 24hour events reviewed; nursing and respiratory care staff consulted; no adverse overnight events reported to me; up in chair; looks and feels much better; much stronger; No N/V/F/C; denies acute chest pains or palpitations Objective Vital Signs - 12hr 11/21/18 11/21/18 11/21/18 03:49 04:00 05:00 Temperature 98.1 F Pulse Rate 85 91 H Pulse Rate [ From Monitor] Respiratory 12 14 Rate Blood Pressure 113/44 113/44 O2 Sat by Pulse 100 99 Oximetry 11/21/18 11/21/18 11/21/18 06:00 07:00 08:00 Temperature 98.3 F Pulse Rate 94 H 97 H 89 Pulse Rate [ 89 From Monitor] Respiratory 17 14 15 Rate Blood Pressure 113/44 108/51 155/58 O2 Sat by Pulse 100 100 97 Oximetry 11/21/18 11/21/18 11/21/18 09:01 10:00 10:01 Temperature Pulse Rate 87 105 H Pulse Rate [ From Monitor] Respiratory 15 20 Rate Blood Pressure 114/42 107/68 O2 Sat by Pulse 97 100 97 Oximetry 11/21/18 11/21/18 11/21/18 11:01 12:00 12:01 Temperature 97.7 F Pulse Rate 104 H 84 94 H Pulse Rate [ 85 From Monitor] Respiratory 15 14 14 Rate Blood Pressure 157/58 157/58 O2 Sat by Pulse 100 99 98 Oximetry 11/21/18 13:01 Temperature Pulse Rate 84 Pulse Rate [ From Monitor] Respiratory 19 Rate Blood Pressure 164/65 O2 Sat by Pulse 100 Oximetry Constitutional: no acute distress, other (elderly looking CF, normocephalic with normal resp effort at rest) Eyes: non-icteric ENT: oropharynx moist, other (mallampati 3) Neck: supple, no lymphadenopathy, no JVD, other (no thyromegaly) Effort: mildly labored Ascultation: Bilateral: clear, diminished breath sounds Percussion: Bilateral: not dull Cardiovascular: regular rate and rhythm, murmur noted (systolic), other Gastrointestinal: normoactive bowel sounds, soft, non-tender, non-distended Integumentary: normal Extremities: no cyanosis, no edema, pink and warm, pulses normal, no ischemia or petechiae Neurologic: non-focal exam (moves all extremities, obeys onse step commands), pupils equal and round, CN II-XII normal, motor strength normal and Psychiatric: mood appropriate, affect normal CBC and BMP: 11/19/18 05:01 11/21/18 05:05 ABG, PT/INR, D-dimer: ABG POC ABG pH 7.415 (7.35-7.45) 11/12/18 04:44 POC ABG pCO2 34.0 (35-45) L 11/12/18 04:44 POC ABG pO2 138 (80-105) H 11/12/18 04:44 POC ABG HCO3 21.8 (22-26 mml/L) 11/12/18 04:44 POC ABG Total CO2 23 (23-27mmol/L) 11/12/18 04:44 POC ABG O2 Sat 99 11/12/18 04:44 PT/INR, D-dimer PT 15.2 Sec. (12.2-14.9) H 11/11/18 10:03 INR 1.23 (0.87-1.13) H 11/11/18 10:03 Abnormal lab findings: Abnormal Labs 11/05/18 11/05/18 11/05/18 16:31 16:31 16:31 WBC RBC Hgb Hct Plt Count 139 L [place] % (Auto) Lymph # 0.7 L Seg Neutrophils % 78.8 H PT INR POC ABG pH POC ABG pCO2 POC ABG pO2 Sodium 148 H Potassium 3.2 L Chloride 110.6 H Carbon Dioxide 17 L BUN 18 H Creatinine 1.9 H Glucose 205 H POC Glucose Lactic Acid 8.20 H* Calcium 10.9 H Phosphorus Total Creatine Kinase C-Reactive Protein Total Protein Albumin 3.6 L Urine WBC (Auto) Urine Creatinine Urine Total Protein Salicylates Acetaminophen 11/05/18 11/05/18 11/05/18 16:31 16:31 16:31 WBC RBC Hgb Hct Plt Count [place] % (Auto) Lymph # Seg Neutrophils % PT INR POC ABG pH POC ABG pCO2 POC ABG pO2 Sodium Potassium Chloride Carbon Dioxide BUN Creatinine Glucose POC Glucose Lactic Acid Calcium Phosphorus Total Creatine Kinase < 7 L C-Reactive Protein Total Protein Albumin Urine WBC (Auto) Urine Creatinine Urine Total Protein Salicylates < 0.3 L Acetaminophen < 5.0 L 11/05/18 11/05/18 11/05/18 17:29 17:42 20:47 WBC RBC Hgb Hct Plt Count [place] % (Auto) Lymph # Seg Neutrophils % PT INR POC ABG pH POC ABG pCO2 33.4 L POC ABG pO2 136 H Sodium Potassium Chloride Carbon Dioxide BUN Creatinine Glucose POC Glucose Lactic Acid 3.30 H* Calcium Phosphorus Total Creatine Kinase C-Reactive Protein Total Protein Albumin Urine WBC (Auto) 19.0 H Urine Creatinine Urine Total Protein Salicylates Acetaminophen 11/05/18 11/05/18 11/06/18 20:47 22:42 04:09 WBC 4.4 L RBC Hgb Hct Plt Count 102 L [place] % (Auto) 13.2 H Lymph # 1.0 L Seg Neutrophils % PT INR POC ABG pH POC ABG pCO2 POC ABG pO2 Sodium Potassium Chloride Carbon Dioxide BUN Creatinine Glucose POC Glucose 121 H Lactic Acid Calcium Phosphorus Total Creatine Kinase C-Reactive Protein Total Protein Albumin Urine WBC (Auto) Urine Creatinine 166.9 H Urine Total Protein Salicylates Acetaminophen 11/06/18 11/06/18 11/06/18 04:09 05:05 07:31 WBC RBC Hgb Hct Plt Count [place] % (Auto) Lymph # Seg Neutrophils % PT INR POC ABG pH 7.509 H POC ABG pCO2 < 30 L POC ABG pO2 115 H Sodium 150 H Potassium 2.7 L* Chloride 118.2 H Carbon Dioxide 21 L BUN 21 H Creatinine 1.6 H Glucose 125 H POC Glucose Lactic Acid 2.50 H* Calcium Phosphorus Total Creatine Kinase C-Reactive Protein Total Protein 5.7 L Albumin 3.1 L Urine WBC (Auto) Urine Creatinine Urine Total Protein Salicylates Acetaminophen 11/06/18 11/06/18 11/06/18 12:04 16:21 18:04 WBC RBC Hgb Hct Plt Count [place] % (Auto) Lymph # Seg Neutrophils % PT INR POC ABG pH POC ABG pCO2 POC ABG pO2 Sodium Potassium 5.4 H D Chloride Carbon Dioxide BUN Creatinine Glucose POC Glucose 122 H 110 H Lactic Acid Calcium Phosphorus Total Creatine Kinase C-Reactive Protein Total Protein Albumin Urine WBC (Auto) Urine Creatinine Urine Total Protein Salicylates Acetaminophen 11/06/18 11/06/18 11/07/18 21:28 Unknown 04:02 WBC RBC Hgb Hct Plt Count [place] % (Auto) Lymph # Seg Neutrophils % PT INR POC ABG pH POC ABG pCO2 POC ABG pO2 Sodium 152 H Potassium Chloride 123.4 H Carbon Dioxide 20 L BUN 23 H Creatinine 1.5 H Glucose 111 H POC Glucose 125 H Lactic Acid Calcium Phosphorus 1.00 L Total Creatine Kinase C-Reactive Protein Total Protein Albumin Urine WBC (Auto) Urine Creatinine 155.8 H Urine Total Protein 68 H Salicylates Acetaminophen 11/07/18 11/07/18 11/07/18 09:07 11:05 15:48 WBC 4.1 L RBC 3.62 L Hgb Hct Plt Count 77 L [place] % (Auto) Lymph # Seg Neutrophils % PT INR POC ABG pH 7.314 L POC ABG pCO2 POC ABG pO2 Sodium Potassium Chloride Carbon Dioxide BUN Creatinine Glucose POC Glucose Lactic Acid Calcium Phosphorus Total Creatine Kinase C-Reactive Protein 3.50 H Total Protein Albumin Urine WBC (Auto) Urine Creatinine Urine Total Protein Salicylates Acetaminophen 11/08/18 11/08/18 11/08/18 04:27 05:29 12:27 WBC RBC Hgb Hct Plt Count [place] % (Auto) Lymph # Seg Neutrophils % PT INR POC ABG pH POC ABG pCO2 33.4 L POC ABG pO2 78 L Sodium 146 H Potassium Chloride 117.1 H Carbon Dioxide 18 L BUN 19 H Creatinine 1.6 H Glucose 111 H POC Glucose 108 H Lactic Acid Calcium Phosphorus Total Creatine Kinase C-Reactive Protein Total Protein Albumin Urine WBC (Auto) Urine Creatinine Urine Total Protein Salicylates Acetaminophen 11/08/18 11/08/18 11/08/18 12:27 18:11 23:50 WBC RBC Hgb Hct Plt Count [place] % (Auto) Lymph # Seg Neutrophils % PT INR POC ABG pH POC ABG pCO2 POC ABG pO2 Sodium Potassium Chloride Carbon Dioxide BUN Creatinine Glucose POC Glucose 188 H 126 H 149 H Lactic Acid Calcium Phosphorus Total Creatine Kinase C-Reactive Protein Total Protein Albumin Urine WBC (Auto) Urine Creatinine Urine Total Protein Salicylates Acetaminophen 11/09/18 11/09/18 11/09/18 03:32 04:12 04:12 WBC 3.6 L RBC 2.99 L Hgb 8.8 L Hct 26.9 L Plt Count 81 L [place] % (Auto) Lymph # Seg Neutrophils % PT INR POC ABG pH 7.329 L POC ABG pCO2 POC ABG pO2 Sodium Potassium Chloride 114.8 H Carbon Dioxide 20 L BUN 28 H Creatinine 1.9 H Glucose 144 H POC Glucose Lactic Acid Calcium 8.2 L Phosphorus Total Creatine Kinase C-Reactive Protein Total Protein Albumin Urine WBC (Auto) Urine Creatinine Urine Total Protein Salicylates Acetaminophen 11/09/18 11/09/18 11/09/18 05:24 12:59 17:59 WBC RBC Hgb Hct Plt Count [place] % (Auto) Lymph # Seg Neutrophils % PT INR POC ABG pH POC ABG pCO2 POC ABG pO2 Sodium Potassium Chloride Carbon Dioxide BUN Creatinine Glucose POC Glucose 163 H 175 H 116 H Lactic Acid Calcium Phosphorus Total Creatine Kinase C-Reactive Protein Total Protein Albumin Urine WBC (Auto) Urine Creatinine Urine Total Protein Salicylates Acetaminophen 11/10/18 11/10/18 11/10/18 00:45 03:57 06:45 WBC RBC Hgb Hct Plt Count [place] % (Auto) Lymph # Seg Neutrophils % PT INR POC ABG pH 7.332 L POC ABG pCO2 POC ABG pO2 Sodium Potassium Chloride Carbon Dioxide BUN Creatinine Glucose POC Glucose 201 H 148 H Lactic Acid Calcium Phosphorus Total Creatine Kinase C-Reactive Protein Total Protein Albumin Urine WBC (Auto) Urine Creatinine Urine Total Protein Salicylates Acetaminophen 11/10/18 11/10/18 11/10/18 09:52 09:52 12:36 WBC RBC 3.48 L Hgb Hct Plt Count 103 L [place] % (Auto) 14.8 H Lymph # 0.6 L Seg Neutrophils % PT INR POC ABG pH POC ABG pCO2 POC ABG pO2 Sodium Potassium Chloride 109.3 H Carbon Dioxide 21 L BUN 36 H Creatinine 2.1 H Glucose 134 H POC Glucose 142 H Lactic Acid Calcium Phosphorus Total Creatine Kinase C-Reactive Protein Total Protein Albumin Urine WBC (Auto) Urine Creatinine Urine Total Protein Salicylates Acetaminophen 11/10/18 11/10/18 11/11/18 17:31 23:34 05:01 WBC 4.1 L RBC 3.11 L Hgb 9.1 L Hct 27.7 L Plt Count 97 L [place] % (Auto) Lymph # Seg Neutrophils % PT INR POC ABG pH POC ABG pCO2 POC ABG pO2 Sodium Potassium Chloride Carbon Dioxide BUN Creatinine Glucose POC Glucose 152 H 163 H Lactic Acid Calcium Phosphorus Total Creatine Kinase C-Reactive Protein Total Protein Albumin Urine WBC (Auto) Urine Creatinine Urine Total Protein Salicylates Acetaminophen 11/11/18 11/11/18 11/11/18 05:01 05:34 10:03 WBC RBC Hgb Hct Plt Count [place] % (Auto) Lymph # Seg Neutrophils % PT 15.2 H INR 1.23 H POC ABG pH POC ABG pCO2 POC ABG pO2 Sodium Potassium 5.3 H Chloride 108.2 H Carbon Dioxide 21 L BUN 39 H Creatinine 2.2 H Glucose 155 H POC Glucose 159 H Lactic Acid Calcium Phosphorus Total Creatine Kinase C-Reactive Protein Total Protein Albumin Urine WBC (Auto) Urine Creatinine Urine Total Protein Salicylates Acetaminophen 11/11/18 11/11/18 11/11/18 12:36 17:00 17:25 WBC RBC Hgb Hct Plt Count [place] % (Auto) Lymph # Seg Neutrophils % PT INR POC ABG pH POC ABG pCO2 POC ABG pO2 121 H Sodium Potassium Chloride Carbon Dioxide BUN Creatinine Glucose POC Glucose 147 H 116 H Lactic Acid Calcium Phosphorus Total Creatine Kinase C-Reactive Protein Total Protein Albumin Urine WBC (Auto) Urine Creatinine Urine Total Protein Salicylates Acetaminophen 11/11/18 11/11/18 11/12/18 20:33 23:46 04:28 WBC RBC 3.26 L Hgb 9.6 L Hct 29.2 L Plt Count 126 L [place] % (Auto) Lymph # Seg Neutrophils % PT INR POC ABG pH 7.247 L POC ABG pCO2 53.6 H POC ABG pO2 Sodium Potassium Chloride Carbon Dioxide BUN Creatinine Glucose POC Glucose 130 H Lactic Acid Calcium Phosphorus Total Creatine Kinase C-Reactive Protein Total Protein Albumin Urine WBC (Auto) Urine Creatinine Urine Total Protein Salicylates Acetaminophen 11/12/18 11/12/18 11/13/18 04:28 04:44 04:49 WBC RBC 2.89 L Hgb 8.6 L Hct 25.7 L Plt Count 133 L [place] % (Auto) Lymph # Seg Neutrophils % PT INR POC ABG pH POC ABG pCO2 34.0 L POC ABG pO2 138 H Sodium Potassium 5.2 H Chloride 109.9 H Carbon Dioxide 20 L BUN 40 H Creatinine 2.2 H Glucose 112 H POC Glucose Lactic Acid Calcium Phosphorus Total Creatine Kinase C-Reactive Protein Total Protein 5.9 L Albumin 2.5 L Urine WBC (Auto) Urine Creatinine Urine Total Protein Salicylates Acetaminophen 11/13/18 11/13/18 11/14/18 04:49 11:27 04:19 WBC RBC 3.32 L Hgb 9.7 L Hct 29.8 L Plt Count [place] % (Auto) Lymph # Seg Neutrophils % PT INR POC ABG pH POC ABG pCO2 POC ABG pO2 Sodium Potassium 5.1 H Chloride 113.7 H Carbon Dioxide 21 L BUN 44 H Creatinine 2.3 H Glucose POC Glucose Lactic Acid Calcium Phosphorus Total Creatine Kinase C-Reactive Protein Total Protein Albumin Urine WBC (Auto) Urine Creatinine 45.0 H Urine Total Protein Salicylates Acetaminophen 11/14/18 11/14/18 11/15/18 04:19 17:45 04:00 WBC RBC Hgb Hct Plt Count [place] % (Auto) Lymph # Seg Neutrophils % PT INR POC ABG pH POC ABG pCO2 POC ABG pO2 Sodium 147 H 150 H Potassium Chloride 114.8 H 118.9 H Carbon Dioxide 18 L 18 L BUN 44 H 45 H Creatinine 2.2 H 2.3 H Glucose POC Glucose 68 L Lactic Acid Calcium Phosphorus Total Creatine Kinase C-Reactive Protein Total Protein Albumin Urine WBC (Auto) Urine Creatinine Urine Total Protein Salicylates Acetaminophen 11/15/18 11/16/18 11/16/18 05:30 00:03 01:19 WBC RBC 3.19 L Hgb 9.4 L Hct 29.3 L Plt Count [place] % (Auto) Lymph # Seg Neutrophils % PT INR POC ABG pH POC ABG pCO2 POC ABG pO2 Sodium Potassium Chloride Carbon Dioxide BUN Creatinine Glucose POC Glucose 122 H 115 H Lactic Acid Calcium Phosphorus Total Creatine Kinase C-Reactive Protein Total Protein Albumin Urine WBC (Auto) Urine Creatinine Urine Total Protein Salicylates Acetaminophen 11/16/18 11/16/18 11/16/18 05:07 11:07 12:13 WBC RBC Hgb Hct Plt Count [place] % (Auto) Lymph # Seg Neutrophils % PT INR POC ABG pH POC ABG pCO2 POC ABG pO2 Sodium 151 H Potassium Chloride 119.5 H Carbon Dioxide BUN 39 H Creatinine 2.2 H Glucose 123 H POC Glucose 110 H 146 H Lactic Acid Calcium Phosphorus Total Creatine Kinase C-Reactive Protein Total Protein Albumin Urine WBC (Auto) Urine Creatinine Urine Total Protein Salicylates Acetaminophen 11/16/18 11/17/18 11/17/18 18:02 00:00 05:51 WBC RBC Hgb Hct Plt Count [place] % (Auto) Lymph # Seg Neutrophils % PT INR POC ABG pH POC ABG pCO2 POC ABG pO2 Sodium Potassium Chloride Carbon Dioxide BUN Creatinine Glucose POC Glucose 129 H 111 H 137 H Lactic Acid Calcium Phosphorus Total Creatine Kinase C-Reactive Protein Total Protein Albumin Urine WBC (Auto) Urine Creatinine Urine Total Protein Salicylates Acetaminophen 11/17/18 11/17/18 11/17/18 12:01 12:22 17:45 WBC RBC Hgb Hct Plt Count [place] % (Auto) Lymph # Seg Neutrophils % PT INR POC ABG pH POC ABG pCO2 POC ABG pO2 Sodium 146 H Potassium Chloride 115.1 H Carbon Dioxide BUN 35 H Creatinine 2.0 H Glucose 142 H POC Glucose 139 H 132 H Lactic Acid Calcium Phosphorus Total Creatine Kinase C-Reactive Protein Total Protein Albumin Urine WBC (Auto) Urine Creatinine Urine Total Protein Salicylates Acetaminophen 11/18/18 11/18/18 11/18/18 00:11 05:32 11:39 WBC RBC Hgb Hct Plt Count [place] % (Auto) Lymph # Seg Neutrophils % PT INR POC ABG pH POC ABG pCO2 POC ABG pO2 Sodium Potassium Chloride Carbon Dioxide BUN Creatinine Glucose POC Glucose 159 H 140 H 153 H Lactic Acid Calcium Phosphorus Total Creatine Kinase C-Reactive Protein Total Protein Albumin Urine WBC (Auto) Urine Creatinine Urine Total Protein Salicylates Acetaminophen 11/18/18 11/18/18 11/18/18 16:22 16:22 17:25 WBC RBC 2.85 L Hgb 8.4 L Hct 25.7 L Plt Count [place] % (Auto) Lymph # Seg Neutrophils % PT INR POC ABG pH POC ABG pCO2 POC ABG pO2 Sodium Potassium Chloride 110.7 H Carbon Dioxide BUN 30 H Creatinine 1.7 H Glucose 145 H POC Glucose 150 H Lactic Acid Calcium Phosphorus Total Creatine Kinase C-Reactive Protein Total Protein Albumin Urine WBC (Auto) Urine Creatinine Urine Total Protein Salicylates Acetaminophen 11/18/18 11/19/18 11/19/18 23:44 05:01 05:01 WBC RBC 2.94 L Hgb 8.5 L Hct 26.5 L Plt Count [place] % (Auto) Lymph # Seg Neutrophils % PT INR POC ABG pH POC ABG pCO2 POC ABG pO2 Sodium Potassium Chloride 108.0 H Carbon Dioxide BUN 23 H Creatinine 1.8 H Glucose 103 H POC Glucose 153 H Lactic Acid Calcium Phosphorus Total Creatine Kinase C-Reactive Protein Total Protein Albumin Urine WBC (Auto) Urine Creatinine Urine Total Protein Salicylates Acetaminophen 11/19/18 11/19/18 11/19/18 05:27 12:30 18:31 WBC RBC Hgb Hct Plt Count [place] % (Auto) Lymph # Seg Neutrophils % PT INR POC ABG pH POC ABG pCO2 POC ABG pO2 Sodium Potassium Chloride Carbon Dioxide BUN Creatinine Glucose POC Glucose 122 H 169 H 139 H Lactic Acid Calcium Phosphorus Total Creatine Kinase C-Reactive Protein Total Protein Albumin Urine WBC (Auto) Urine Creatinine Urine Total Protein Salicylates Acetaminophen 11/19/18 11/20/18 11/20/18 23:26 05:10 05:47 WBC RBC Hgb Hct Plt Count [place] % (Auto) Lymph # Seg Neutrophils % PT INR POC ABG pH POC ABG pCO2 POC ABG pO2 Sodium 136 L Potassium Chloride Carbon Dioxide BUN 30 H Creatinine 1.8 H Glucose 129 H POC Glucose 146 H 136 H Lactic Acid Calcium Phosphorus Total Creatine Kinase C-Reactive Protein Total Protein Albumin Urine WBC (Auto) Urine Creatinine Urine Total Protein Salicylates Acetaminophen 11/20/18 11/20/18 11/20/18 12:01 18:06 23:30 WBC RBC Hgb Hct Plt Count [place] % (Auto) Lymph # Seg Neutrophils % PT INR POC ABG pH POC ABG pCO2 POC ABG pO2 Sodium Potassium Chloride Carbon Dioxide BUN Creatinine Glucose POC Glucose 170 H 118 H 106 H Lactic Acid Calcium Phosphorus Total Creatine Kinase C-Reactive Protein Total Protein Albumin Urine WBC (Auto) Urine Creatinine Urine Total Protein Salicylates Acetaminophen 11/21/18 11/21/18 05:05 11:39 WBC RBC Hgb Hct Plt Count [place] % (Auto) Lymph # Seg Neutrophils % PT INR POC ABG pH POC ABG pCO2 POC ABG pO2 Sodium Potassium Chloride 108.2 H Carbon Dioxide BUN 31 H Creatinine 1.9 H Glucose POC Glucose 140 H Lactic Acid Calcium Phosphorus Total Creatine Kinase C-Reactive Protein Total Protein Albumin Urine WBC (Auto) Urine Creatinine Urine Total Protein Salicylates Acetaminophen Allied health notes reviewed: nursing
--- NOTE | 2018-11-21 17:16 | Progress Note ---
Assessment and Plan Assessment and plan: Patient is a 82 yo woman (No prior admission here for review, first visit in our EMR. Also, her is in Hospice for metastatic cancer per son Lauro) with a history of hypertension, dyslipidemia, OA s/p bilateral TKR and possible CHF who presented to [facility] ED with AMS. Apparently, patient was found unresponsive in the bed and seizing. On EMS arrival patient was noted to have a GCS of 3 and was placed on oxygen mask and intubated in the ED on arrival 11/05/18. Initial Temp was noted as 102.2. In the ED patient was intubated due to AMS and Acute Hypoxemic Respiratory Failure, and is unable to protect her airway, Teleneurology consulted in ED. Pt deemed not a candidate for TPA. Initially pCXR on 11/05/18 showed ETT in good position, no other significant findings, CT abd/pelvis without contrast showed mild bibasilar lung atelectasis as well as mildly distended gallbladder with minimal cholelithiasis. 11/10/18 pCXR showed developing Atelectasis and bilateral pleural effusion. Then pCXR on 11/11/18 showed increasing pleural parenchymal opacity LLL. Patient was eventually extubated on 11/11/18 and placed on bipap 50%. Then on 11/13/18 bipap removed in AM and patient transferred out of the ICU to [facility]. * Renal us: Small left renal cyst, negative for obstruction or mass * MRI Head: negative for acute pathology * Culture: Staph homis in blood * MSSA trach culture * CT chest wo contrast 11/11/18 IMPRESSION: Small pleural effusions, left greater than right. Basilar consolidation is probably secondary to atelectasis and less likely pneumonia. The remainder of the lungs appear clear. * 11/07/18 2D ECHO Conclusions: Mild to moderate concentric LVH, est EF 40-45%, left ventricular diastolic filling pattern is c/w pseudonormalization, RVSF mildly reduced, mild TR, small pericardial effusion, circumferential, no evidence of tamponade Acute hypoxic respiratory failure >96 hours, poa: currently extubated on Sunday11/11/18, off Bipap, NOW ON nc AND with good saturation and Pulm is following MSSA Sepsis Left Lobar Pneumonia: treated with Abx, ID following. Staph Hominis Bacteremia: Repeat blood cultures negative, ID following Hyperkalemia: treated with kayexalate and monitor bmp closely, Nephrology is following Acute cystitis: treated with Abx, monitor bmp closely Hypertensive Urgency: Resume Coreg, Hydrazine Status Epilepticus, poa: Neurology is following, treat with prn IV ativan Lactic Acidosis, treat with renal failure Hypernatermia resolved: monitor bmp closely Acute Metabolic Encephalopathy Thrombocytopenia; improving, monitor CBC closely ARF due to suspect ATN, poa: Nephrology following. Dysphagia, failed swallow evaluation initally, but now cleared for gi soft: dobhuff and speech therapy ICU deconditioning: order pt/ot [place] removed after 24hr urine collection with a Purex in right EJ removed, midline placed Left arm swollen: venous doppler ordered which was negative for DVT D/C to LTACH once accepted I called [employer] @ then pressed 5, left my number for call back and no one called me back d/w daughter Urmila at bedside Per CM. Ltac and acute rehab denied by insurance company, SNF placement ongoing History Interval history: Patient was seen and examined. Follow-up on current diagnosis of AMS and respiratory failure. No overnight events reported to me. Imaging, nursing note, chart, labs and old chart reviewed. clinically improving, tolerating diet Hospitalist Physical - Physical exam Narrative exam: Gen: ill appearing, mild increase in accessory muscles, off bipap on NC,more awake today, sitting up by the chair HEENT: NCAT, EOMI, PERRL, OP Clear Neck: supple, no adenopathy, no thyromegaly, no JVD CVS/Heart: Regular tachycardia normal S1S2, pulses present bilaterally Chest/Lungs: tachypneic, diminished bs bilatearal, Symmetrical chest expansion, good air entry bilaterally GI/Abdomen: soft, NTND, good bowel sounds, no guarding or rebound /Bladder: no suprapubic tenderness, no CVA or paraspinal tenderness Extermity/Skin: dependent edema, pale skin MSK: doesn't follow commands Neuro: CN 2-12 grossly intact, not following commands Psych: calm - Constitutional Vitals: Temp Pulse Resp BP Pulse Ox 97.7 F 83 16 85/24 100 11/21/18 12:00 11/21/18 15:01 11/21/18 15:01 11/21/18 15:01 11/21/18 15:01 General appearance: Absent: severe distress Results - Labs CBC & Chem 7: 11/19/18 05:01 11/21/18 05:05 Labs: Laboratory Last Values WBC 5.2 K/mm3 (4.5-11.0) 11/19/18 05:01 RBC 2.94 M/mm3 (3.65-5.03) L 11/19/18 05:01 Hgb 8.5 gm/dl (10.1-14.3) L 11/19/18 05:01 Hct 26.5 % (30.3-42.9) L 11/19/18 05:01 MCV 90 fl (79-97) 11/19/18 05:01 MCH 29 pg (28-32) 11/19/18 05:01 MCHC 32 % (30-34) 11/19/18 05:01 RDW 14.5 % (13.2-15.2) 11/19/18 05:01 Plt Count 159 K/mm3 (140-440) 11/19/18 05:01 Lymph % (Auto) 13.4 % (13.4-35.0) 11/10/18 09:52 [place] % (Auto) 14.8 % (0.0-7.3) H 11/10/18 09:52 Eos % (Auto) 1.6 % (0.0-4.3) 11/10/18 09:52 Baso % (Auto) 0.3 % (0.0-1.8) 11/10/18 09:52 Lymph # 0.6 K/mm3 (1.2-5.4) L 11/10/18 09:52 [place] # 0.7 K/mm3 (0.0-0.8) 11/10/18 09:52 Eos # 0.1 K/mm3 (0.0-0.4) 11/10/18 09:52 Baso # 0.0 K/mm3 (0.0-0.1) 11/10/18 09:52 Seg Neutrophils % 69.9 % (40.0-70.0) 11/10/18 09:52 Seg Neutrophils # 3.2 K/mm3 (1.8-7.7) 11/10/18 09:52 PT 15.2 Sec. (12.2-14.9) H 11/11/18 10:03 INR 1.23 (0.87-1.13) H 11/11/18 10:03 APTT 31.8 Sec. (24.2-36.6) 11/11/18 10:03 Heparin Anti-Xa, Unfract Negative (Negative) 11/08/18 13:49 POC ABG pH 7.415 (7.35-7.45) 11/12/18 04:44 POC ABG pCO2 34.0 (35-45) L 11/12/18 04:44 POC ABG pO2 138 (80-105) H 11/12/18 04:44 POC ABG HCO3 21.8 (22-26 mml/L) 11/12/18 04:44 POC ABG Total CO2 23 (23-27mmol/L) 11/12/18 04:44 POC ABG O2 Sat 99 11/12/18 04:44 POC ABG Base Excess -3 ((-2) - (+3)mmol/L) 11/12/18 04:44 30 % 11/12/18 04:44 Sodium 142 mmol/L (137-145) 11/21/18 05:05 Potassium 4.5 mmol/L (3.6-5.0) 11/21/18 05:05 Chloride 108.2 mmol/L (98-107) H 11/21/18 05:05 Carbon Dioxide 26 mmol/L (22-30) 11/21/18 05:05 12 mmol/L 11/21/18 05:05 BUN 31 mg/dL (7-17) H 11/21/18 05:05 1.9 mg/dL (0.7-1.2) H 11/21/18 05:05 Estimated GFR 25 ml/min 11/21/18 05:05 16 % 11/21/18 05:05 Glucose 93 mg/dL (65-100) 11/21/18 05:05 POC Glucose 140 (70-105) H 11/21/18 11:39 Lactic Acid 0.70 mmol/L (0.7-2.0) 11/09/18 04:12 Calcium 10.1 mg/dL (8.4-10.2) 11/21/18 05:05 Phosphorus 3.00 mg/dL (2.5-4.5) D 11/08/18 04:27 Magnesium 2.20 mg/dL (1.7-2.3) 11/05/18 16:31 0.40 mg/dL (0.1-1.2) 11/12/18 04:28 AST 27 units/L (5-40) 11/12/18 04:28 ALT 24 units/L (7-56) 11/12/18 04:28 66 units/L (35-129) 11/12/18 04:28 44.0 umol/L (25-60) 11/05/18 17:28 < 7 units/L (30-135) L 11/05/18 16:31 0.019 ng/mL (0.00-0.029) 11/05/18 16:31 3.50 mg/dL (0.00-1.30) H 11/07/18 15:48 5.9 g/dL (6.3-8.2) L 11/12/18 04:28 2.5 g/dL (3.9-5) L 11/12/18 04:28 0.7 % 11/12/18 04:28 See scanned result 11/08/18 13:49 TSH 0.972 mlU/mL (0.270-4.200) 11/05/18 16:31 Yellow (Yellow) 11/05/18 20:47 Slightly-cloudy (Clear) 11/05/18 20:47 5.0 (5.0-7.0) 11/05/18 20:47 Ur Specific [place] 1.016 (1.003-1.030) 11/05/18 20:47 100 mg/dl mg/dL (Negative) 11/05/18 20:47 50 mg/dL (Negative) 11/05/18 20:47 Neg mg/dL (Negative) 11/05/18 20:47 Sm (Negative) 11/05/18 20:47 Pos (Negative) 11/05/18 20:47 Neg (Negative) 11/05/18 20:47 < 2.0 mg/dL (<2.0) 11/05/18 20:47 Ur Leukocyte Esterase Tr (Negative) 11/05/18 20:47 19.0 /HPF (0.0-6.0) H 11/05/18 20:47 4.0 /HPF (0.0-6.0) 11/05/18 20:47 U Epithel Cells (Auto) 1.0 /HPF (0-13.0) 11/05/18 20:47 Few /HPF 11/05/18 20:47 None seen (None Seen) 11/06/18 14:48 2800 ml 11/13/18 11:27 45.0 mg/dL (0.1-20.0) H 11/13/18 11:27 Height (in) 65.0 inches 11/13/18 11:27 Weight (lb) 153.7 lbs 11/13/18 11:27 37 11/13/18 11:27 40 mmol/L 11/06/18 Unknown 68 mg/dL (5-11.8) H 11/06/18 Unknown Clear 11/11/18 Unknown Colorless 11/11/18 Unknown 10 /mm3 (1-10) 11/11/18 Unknown 22 /mm3 (0-0) 11/11/18 Unknown CSF Seg Neutrophils 0 % (0-6) 11/11/18 Unknown 37.8 % (40-80) 11/11/18 Unknown CSF Reactive Lymphs 0 % 11/11/18 Unknown 62.2 % (15-45) 11/11/18 Unknown 0 % 11/11/18 Unknown 0 % 11/11/18 Unknown C 11/11/18 Unknown 77 mg/dL 11/11/18 Unknown 57 mg/dL 11/11/18 Unknown Vancomycin Trough 17.5 ug/mL (5.0-20.0) 11/08/18 21:16 Random Vancomycin 22.4 ug/mL (0-40.0) 11/11/18 05:01 Salicylates < 0.3 mg/dL (2.8-20.0) L 11/05/18 16:31 Acetaminophen < 5.0 ug/mL (10.0-30.0) L 11/05/18 16:31 Plasma/Serum Alcohol < 0.01 % (0-0.07) 11/05/18 16:31 Heparin-induced Plt Ab Negative (Negative) 11/08/18 13:49 UF Heparin High Dose 0 % Release 11/08/18 13:49 KIANNA UFH Low Dose 0.1 0 % Release 11/08/18 13:49 KIANNA UFH Low Dose 0.5 0 % Release 11/08/18 13:49 Active Medications - Current Medications Current Medications: Generic Name Dose Route Start Last Admin Trade Name Freq PRN Reason Stop Dose Admin Acetaminophen 650 mg 11/14/18 10:52 Tylenol PO Q6H PRN Non Cardiac Pain or Temp>100.5 Albuterol 2.5 mg 11/05/18 17:52 11/12/18 20:15 Proventil IH 2.5 mg Q3HRT PRN Administration Shortness Of Breath Lipase/Protease/Amylase 1 each 11/16/18 07:34 Pancreaze 10,500 Unit FEEDTUBE PRN PRN For Clogged Feeding Tube Carvedilol 6.25 mg 11/09/18 11:00 11/21/18 11:01 Coreg PO 6.25 mg BID NIKKO Administration Dextrose 50 ml 11/05/18 17:59 D50w (25gm) Syringe IV PRN PRN Hypoglycemia Famotidine 20 mg 11/11/18 10:00 11/21/18 11:02 Pepcid PO 20 mg DAILY NIKKO Administration Gabapentin 800 mg 11/08/18 10:00 11/21/18 11:01 Neurontin PO 800 mg BID NIKKO Administration Hydralazine HCl 10 mg 11/05/18 21:30 11/17/18 06:15 Apresoline IV 10 mg Q6HR PRN Administration Hypertension Hydrophilic Ointment 1 applic 11/05/18 16:21 Vaseline Lip Therapy TP Q2HR PRN Dry Lips Dextrose/Sodium Chloride 1,000 mls @ 50 mls/hr 11/15/18 13:00 11/20/18 00:00 D5/0.45ns IV 50 mls/hr DIRECT NIKKO Administration Insulin Human Lispro 0 unit 11/21/18 16:30 Humalog SUB-Q ACHS NIKKO Protocol Latanoprost 1 drops 11/08/18 18:00 11/21/18 14:43 Latanoprost 0.005% OU Not Given QPM NIKKO Miscellaneous Medication 1 drop 11/08/18 22:00 11/21/18 14:42 Brimonidine Tartate OP Not Given BID NIKKO Miscellaneous Medication 1 drop 11/16/18 22:00 11/21/18 10:59 Brimonidine Tartrate [Brimonidine Tartrate 0.2%] OP 1 drop BID NIKKO Administration Morphine Sulfate 1 mg 11/14/18 10:52 11/15/18 09:27 Morphine IV 1 mg Q4H PRN Administration Pain , Severe (7-10) Multi-Ingred Cream/Lotion/Oil/Oint 1 applic 11/05/18 16:21 Artificial Tears Ophth Oint OU Q4HR PRN Dry Eye(s) Pravastatin Sodium 20 mg 11/08/18 10:00 11/21/18 11:02 Pravachol PO 20 mg DAILY NIKKO Administration Ropinirole HCl 1 mg 11/08/18 09:00 11/21/18 14:43 Requip PO Not Given TID NIKKO Simple Syrup 15 ml 11/16/18 07:34 Simple Syrup FEEDTUBE PRN PRN Hypoglycemia Simple Syrup 30 ml 11/16/18 07:34 Simple Syrup FEEDTUBE PRN PRN Hypoglycemia Sodium Bicarbonate 325 mg 11/16/18 07:34 Sodium Bicarbonate FEEDTUBE PRN PRN For Clogged Feeding Tube Sodium Chloride 10 ml 11/05/18 22:00 11/21/18 14:43 Sodium Chloride Flush Syringe 10 Ml IV Not Given BID NIKKO Sodium Chloride 10 ml 11/05/18 17:52 Sodium Chloride Flush Syringe 10 Ml IV PRN PRN LINE FLUSH Nutrition/Malnutrition Assess - Dietary Evaluation Nutrition/Malnutrition Findings: Nutrition Notes Start: 11/06/18 16:18 Freq: Status: Active Protocol: Document 11/19/18 12:47 JUAN (Rec: 11/19/18 12:57 JUAN [email or web address]) Nutrition Notes Initial or Follow up Reassessment Current Diagnosis Sepsis,Respiratory Failure Other Pertinent Diagnosis Encephalopathy, Dysphagia Current Diet Pureed + TF (Nepro at 30ml/hr) Labs/Tests BUN 23 Cr 1.8 Pertinent Medications Reviewed Height 5 ft 5 in Weight 69.7 kg [place] Body Weight (kg) 56.81 BMI 25.5 Subjective/Other Information [employer]INATOR recommended pureed diet yesterday; however, pt does not like the way pureed foods look. She will however, drink ONS. DHT remains in place and TF infusing at 30ml/hr. Burn Absent Trauma Absent #1 Nutrition Diagnosis Inadequate oral intake Diagnosis Progress(for reassessment Continues documentation) Is patient on ventilator? No Is Patient Ambulatory and/or Out of Bed Yes REE-([facility]-ambulatory/OOB) [ [id number] [id number]] Calculation Used for Recommendations [facility] Additional Notes Protein Needs: 70-91g (1-1.3g/ kg) Fluid Needs: 1 ml/kcal Nutrition Intervention Change Diet Order: Continue pureed diet; advance as tolerated Nutrition Support: Nepro at 30ml/hr Flush with 250 ml q4h until hypernatremia resolves Flush with 130 mls q4h once hyperntreamia resolves Kcal 1,296 Protein (gm) 58 Fluid (mL) 539 Goal #1 Diet advancement Goal #2 TF tolerance Goal #3 PO intake + TF to meet at least 75% energy and pro needs Follow-Up By: 11/22/18 Additional Comments F/U: diet advancement, PO intakes
[2018-11-22 08:48] LABS: Calcium 10.5 mg/dL (8.4-10.2)
--- NOTE | 2018-11-22 09:34 | Progress Note ---
Assessment and Plan Acute Respiratory Failure with Hypoxia Gram positive bacteremia (in clusters)Staph Hominis Possible Seizure Lactic Acidosis, resolved Acute metabolic encephalopathy Hypernatermia Acute Metabolic Encephalopathy BRAD possible secondary to Ischemic ATN Thrombocytopenia, resolving Hypokalemia -wean supplemental oxygen for O2 tory>90% - continue bronchodilators with pulmonary hygiene per RT - continue enteric nutrition as tolerated -Aspiration precautions -ABG and CXR as indicated - continue accuchecks with glycemic control per SSI for target blood glucose <180mg/dL - Prevention of delirium, maintenance of sleep-wake cycle - Avoid nephrotoxic agents, adjust all antibiotics and medications for CrCL and GFR - cardioprotective measures -PT/OT/Mobility program Discharge planning Her early hours of this morning, in hospice care. CONDITION:FAIR PROGNOSIS: FAIR CODE STATUS: FULL CODE Subjective Date of service: 11/22/18 Principal diagnosis: Ac hypoxemic Resp Failure ; Possible Seizure; Ac. Met Encephalopathy; BRAD Interval history: Patient is seen today for: Acute Respiratory Failure with Hypoxemia; Gram positive bacteremia (in clusters); Possible Seizure; Lactic Acidosis; Hypernatermia; Acute Metabolic Encephalopathy; BRAD possible secondary to Ischemic ATN Seen and examined at bedside; 24hour events reviewed; nursing and respiratory care staff consulted; no adverse overnight events reported to me; resting peacefully in bed; awake and alert, No emesis or overt aspiration; no reported seizures; Vitals, labs, medications, chart reviewed. Discussed with RN Daughter in law at the bedside Objective Vital Signs - 12hr 11/21/18 11/21/18 11/22/18 21:44 22:00 00:00 Temperature Pulse Rate 90 90 Pulse Rate [ 85 From Monitor] Respiratory 18 Rate Blood Pressure 147/78 O2 Sat by Pulse 97 Oximetry 11/22/18 11/22/18 11/22/18 02:06 04:00 08:53 Temperature 98.0 F Pulse Rate 86 86 Pulse Rate [ 86 From Monitor] Respiratory 16 18 Rate Blood Pressure 138/62 O2 Sat by Pulse 97 97 Oximetry Constitutional: no acute distress, other (elderly looking CF, normocephalic with normal resp effort at rest) Eyes: non-icteric ENT: oropharynx moist, other (mallampati 3) Neck: supple, no lymphadenopathy, no JVD, other (no thyromegaly) Effort: normal Ascultation: Bilateral: clear, diminished breath sounds, rhonchi (bases) Percussion: Bilateral: not dull Cardiovascular: regular rate and rhythm, murmur noted (systolic), other Gastrointestinal: normoactive bowel sounds, soft, non-tender, non-distended Integumentary: normal Extremities: no cyanosis, no edema, pink and warm, pulses normal, no ischemia or petechiae Neurologic: non-focal exam (moves all extremities, obeys onse step commands), pupils equal and round, CN II-XII normal, motor strength normal and Psychiatric: mood appropriate, affect normal CBC and BMP: 11/19/18 05:01 11/22/18 07:42 ABG, PT/INR, D-dimer: ABG POC ABG pH 7.415 (7.35-7.45) 11/12/18 04:44 POC ABG pCO2 34.0 (35-45) L 11/12/18 04:44 POC ABG pO2 138 (80-105) H 11/12/18 04:44 POC ABG HCO3 21.8 (22-26 mml/L) 11/12/18 04:44 POC ABG Total CO2 23 (23-27mmol/L) 11/12/18 04:44 POC ABG O2 Sat 99 11/12/18 04:44 PT/INR, D-dimer PT 15.2 Sec. (12.2-14.9) H 11/11/18 10:03 INR 1.23 (0.87-1.13) H 11/11/18 10:03 Abnormal lab findings: Abnormal Labs 11/05/18 11/05/18 11/05/18 16:31 16:31 16:31 WBC RBC Hgb Hct Plt Count 139 L [place] % (Auto) Lymph # 0.7 L Seg Neutrophils % 78.8 H PT INR POC ABG pH POC ABG pCO2 POC ABG pO2 Sodium 148 H Potassium 3.2 L Chloride 110.6 H Carbon Dioxide 17 L BUN 18 H Creatinine 1.9 H Glucose 205 H POC Glucose Lactic Acid 8.20 H* Calcium 10.9 H Phosphorus Total Creatine Kinase C-Reactive Protein Total Protein Albumin 3.6 L Urine WBC (Auto) Urine Creatinine Urine Total Protein Salicylates Acetaminophen 11/05/18 11/05/18 11/05/18 16:31 16:31 16:31 WBC RBC Hgb Hct Plt Count [place] % (Auto) Lymph # Seg Neutrophils % PT INR POC ABG pH POC ABG pCO2 POC ABG pO2 Sodium Potassium Chloride Carbon Dioxide BUN Creatinine Glucose POC Glucose Lactic Acid Calcium Phosphorus Total Creatine Kinase < 7 L C-Reactive Protein Total Protein Albumin Urine WBC (Auto) Urine Creatinine Urine Total Protein Salicylates < 0.3 L Acetaminophen < 5.0 L 11/05/18 11/05/18 11/05/18 17:29 17:42 20:47 WBC RBC Hgb Hct Plt Count [place] % (Auto) Lymph # Seg Neutrophils % PT INR POC ABG pH POC ABG pCO2 33.4 L POC ABG pO2 136 H Sodium Potassium Chloride Carbon Dioxide BUN Creatinine Glucose POC Glucose Lactic Acid 3.30 H* Calcium Phosphorus Total Creatine Kinase C-Reactive Protein Total Protein Albumin Urine WBC (Auto) 19.0 H Urine Creatinine Urine Total Protein Salicylates Acetaminophen 11/05/18 11/05/18 11/06/18 20:47 22:42 04:09 WBC 4.4 L RBC Hgb Hct Plt Count 102 L [place] % (Auto) 13.2 H Lymph # 1.0 L Seg Neutrophils % PT INR POC ABG pH POC ABG pCO2 POC ABG pO2 Sodium Potassium Chloride Carbon Dioxide BUN Creatinine Glucose POC Glucose 121 H Lactic Acid Calcium Phosphorus Total Creatine Kinase C-Reactive Protein Total Protein Albumin Urine WBC (Auto) Urine Creatinine 166.9 H Urine Total Protein Salicylates Acetaminophen 11/06/18 11/06/18 11/06/18 04:09 05:05 07:31 WBC RBC Hgb Hct Plt Count [place] % (Auto) Lymph # Seg Neutrophils % PT INR POC ABG pH 7.509 H POC ABG pCO2 < 30 L POC ABG pO2 115 H Sodium 150 H Potassium 2.7 L* Chloride 118.2 H Carbon Dioxide 21 L BUN 21 H Creatinine 1.6 H Glucose 125 H POC Glucose Lactic Acid 2.50 H* Calcium Phosphorus Total Creatine Kinase C-Reactive Protein Total Protein 5.7 L Albumin 3.1 L Urine WBC (Auto) Urine Creatinine Urine Total Protein Salicylates Acetaminophen 11/06/18 11/06/18 11/06/18 12:04 16:21 18:04 WBC RBC Hgb Hct Plt Count [place] % (Auto) Lymph # Seg Neutrophils % PT INR POC ABG pH POC ABG pCO2 POC ABG pO2 Sodium Potassium 5.4 H D Chloride Carbon Dioxide BUN Creatinine Glucose POC Glucose 122 H 110 H Lactic Acid Calcium Phosphorus Total Creatine Kinase C-Reactive Protein Total Protein Albumin Urine WBC (Auto) Urine Creatinine Urine Total Protein Salicylates Acetaminophen 11/06/18 11/06/18 11/07/18 21:28 Unknown 04:02 WBC RBC Hgb Hct Plt Count [place] % (Auto) Lymph # Seg Neutrophils % PT INR POC ABG pH POC ABG pCO2 POC ABG pO2 Sodium 152 H Potassium Chloride 123.4 H Carbon Dioxide 20 L BUN 23 H Creatinine 1.5 H Glucose 111 H POC Glucose 125 H Lactic Acid Calcium Phosphorus 1.00 L Total Creatine Kinase C-Reactive Protein Total Protein Albumin Urine WBC (Auto) Urine Creatinine 155.8 H Urine Total Protein 68 H Salicylates Acetaminophen 11/07/18 11/07/18 11/07/18 09:07 11:05 15:48 WBC 4.1 L RBC 3.62 L Hgb Hct Plt Count 77 L [place] % (Auto) Lymph # Seg Neutrophils % PT INR POC ABG pH 7.314 L POC ABG pCO2 POC ABG pO2 Sodium Potassium Chloride Carbon Dioxide BUN Creatinine Glucose POC Glucose Lactic Acid Calcium Phosphorus Total Creatine Kinase C-Reactive Protein 3.50 H Total Protein Albumin Urine WBC (Auto) Urine Creatinine Urine Total Protein Salicylates Acetaminophen 11/08/18 11/08/18 11/08/18 04:27 05:29 12:27 WBC RBC Hgb Hct Plt Count [place] % (Auto) Lymph # Seg Neutrophils % PT INR POC ABG pH POC ABG pCO2 33.4 L POC ABG pO2 78 L Sodium 146 H Potassium Chloride 117.1 H Carbon Dioxide 18 L BUN 19 H Creatinine 1.6 H Glucose 111 H POC Glucose 108 H Lactic Acid Calcium Phosphorus Total Creatine Kinase C-Reactive Protein Total Protein Albumin Urine WBC (Auto) Urine Creatinine Urine Total Protein Salicylates Acetaminophen 11/08/18 11/08/18 11/08/18 12:27 18:11 23:50 WBC RBC Hgb Hct Plt Count [place] % (Auto) Lymph # Seg Neutrophils % PT INR POC ABG pH POC ABG pCO2 POC ABG pO2 Sodium Potassium Chloride Carbon Dioxide BUN Creatinine Glucose POC Glucose 188 H 126 H 149 H Lactic Acid Calcium Phosphorus Total Creatine Kinase C-Reactive Protein Total Protein Albumin Urine WBC (Auto) Urine Creatinine Urine Total Protein Salicylates Acetaminophen 11/09/18 11/09/18 11/09/18 03:32 04:12 04:12 WBC 3.6 L RBC 2.99 L Hgb 8.8 L Hct 26.9 L Plt Count 81 L [place] % (Auto) Lymph # Seg Neutrophils % PT INR POC ABG pH 7.329 L POC ABG pCO2 POC ABG pO2 Sodium Potassium Chloride 114.8 H Carbon Dioxide 20 L BUN 28 H Creatinine 1.9 H Glucose 144 H POC Glucose Lactic Acid Calcium 8.2 L Phosphorus Total Creatine Kinase C-Reactive Protein Total Protein Albumin Urine WBC (Auto) Urine Creatinine Urine Total Protein Salicylates Acetaminophen 11/09/18 11/09/18 11/09/18 05:24 12:59 17:59 WBC RBC Hgb Hct Plt Count [place] % (Auto) Lymph # Seg Neutrophils % PT INR POC ABG pH POC ABG pCO2 POC ABG pO2 Sodium Potassium Chloride Carbon Dioxide BUN Creatinine Glucose POC Glucose 163 H 175 H 116 H Lactic Acid Calcium Phosphorus Total Creatine Kinase C-Reactive Protein Total Protein Albumin Urine WBC (Auto) Urine Creatinine Urine Total Protein Salicylates Acetaminophen 11/10/18 11/10/18 11/10/18 00:45 03:57 06:45 WBC RBC Hgb Hct Plt Count [place] % (Auto) Lymph # Seg Neutrophils % PT INR POC ABG pH 7.332 L POC ABG pCO2 POC ABG pO2 Sodium Potassium Chloride Carbon Dioxide BUN Creatinine Glucose POC Glucose 201 H 148 H Lactic Acid Calcium Phosphorus Total Creatine Kinase C-Reactive Protein Total Protein Albumin Urine WBC (Auto) Urine Creatinine Urine Total Protein Salicylates Acetaminophen 11/10/18 11/10/18 11/10/18 09:52 09:52 12:36 WBC RBC 3.48 L Hgb Hct Plt Count 103 L [place] % (Auto) 14.8 H Lymph # 0.6 L Seg Neutrophils % PT INR POC ABG pH POC ABG pCO2 POC ABG pO2 Sodium Potassium Chloride 109.3 H Carbon Dioxide 21 L BUN 36 H Creatinine 2.1 H Glucose 134 H POC Glucose 142 H Lactic Acid Calcium Phosphorus Total Creatine Kinase C-Reactive Protein Total Protein Albumin Urine WBC (Auto) Urine Creatinine Urine Total Protein Salicylates Acetaminophen 11/10/18 11/10/18 11/11/18 17:31 23:34 05:01 WBC 4.1 L RBC 3.11 L Hgb 9.1 L Hct 27.7 L Plt Count 97 L [place] % (Auto) Lymph # Seg Neutrophils % PT INR POC ABG pH POC ABG pCO2 POC ABG pO2 Sodium Potassium Chloride Carbon Dioxide BUN Creatinine Glucose POC Glucose 152 H 163 H Lactic Acid Calcium Phosphorus Total Creatine Kinase C-Reactive Protein Total Protein Albumin Urine WBC (Auto) Urine Creatinine Urine Total Protein Salicylates Acetaminophen 11/11/18 11/11/18 11/11/18 05:01 05:34 10:03 WBC RBC Hgb Hct Plt Count [place] % (Auto) Lymph # Seg Neutrophils % PT 15.2 H INR 1.23 H POC ABG pH POC ABG pCO2 POC ABG pO2 Sodium Potassium 5.3 H Chloride 108.2 H Carbon Dioxide 21 L BUN 39 H Creatinine 2.2 H Glucose 155 H POC Glucose 159 H Lactic Acid Calcium Phosphorus Total Creatine Kinase C-Reactive Protein Total Protein Albumin Urine WBC (Auto) Urine Creatinine Urine Total Protein Salicylates Acetaminophen 11/11/18 11/11/18 11/11/18 12:36 17:00 17:25 WBC RBC Hgb Hct Plt Count [place] % (Auto) Lymph # Seg Neutrophils % PT INR POC ABG pH POC ABG pCO2 POC ABG pO2 121 H Sodium Potassium Chloride Carbon Dioxide BUN Creatinine Glucose POC Glucose 147 H 116 H Lactic Acid Calcium Phosphorus Total Creatine Kinase C-Reactive Protein Total Protein Albumin Urine WBC (Auto) Urine Creatinine Urine Total Protein Salicylates Acetaminophen 11/11/18 11/11/18 11/12/18 20:33 23:46 04:28 WBC RBC 3.26 L Hgb 9.6 L Hct 29.2 L Plt Count 126 L [place] % (Auto) Lymph # Seg Neutrophils % PT INR POC ABG pH 7.247 L POC ABG pCO2 53.6 H POC ABG pO2 Sodium Potassium Chloride Carbon Dioxide BUN Creatinine Glucose POC Glucose 130 H Lactic Acid Calcium Phosphorus Total Creatine Kinase C-Reactive Protein Total Protein Albumin Urine WBC (Auto) Urine Creatinine Urine Total Protein Salicylates Acetaminophen 11/12/18 11/12/18 11/13/18 04:28 04:44 04:49 WBC RBC 2.89 L Hgb 8.6 L Hct 25.7 L Plt Count 133 L [place] % (Auto) Lymph # Seg Neutrophils % PT INR POC ABG pH POC ABG pCO2 34.0 L POC ABG pO2 138 H Sodium Potassium 5.2 H Chloride 109.9 H Carbon Dioxide 20 L BUN 40 H Creatinine 2.2 H Glucose 112 H POC Glucose Lactic Acid Calcium Phosphorus Total Creatine Kinase C-Reactive Protein Total Protein 5.9 L Albumin 2.5 L Urine WBC (Auto) Urine Creatinine Urine Total Protein Salicylates Acetaminophen 11/13/18 11/13/18 11/14/18 04:49 11:27 04:19 WBC RBC 3.32 L Hgb 9.7 L Hct 29.8 L Plt Count [place] % (Auto) Lymph # Seg Neutrophils % PT INR POC ABG pH POC ABG pCO2 POC ABG pO2 Sodium Potassium 5.1 H Chloride 113.7 H Carbon Dioxide 21 L BUN 44 H Creatinine 2.3 H Glucose POC Glucose Lactic Acid Calcium Phosphorus Total Creatine Kinase C-Reactive Protein Total Protein Albumin Urine WBC (Auto) Urine Creatinine 45.0 H Urine Total Protein Salicylates Acetaminophen 11/14/18 11/14/18 11/15/18 04:19 17:45 04:00 WBC RBC Hgb Hct Plt Count [place] % (Auto) Lymph # Seg Neutrophils % PT INR POC ABG pH POC ABG pCO2 POC ABG pO2 Sodium 147 H 150 H Potassium Chloride 114.8 H 118.9 H Carbon Dioxide 18 L 18 L BUN 44 H 45 H Creatinine 2.2 H 2.3 H Glucose POC Glucose 68 L Lactic Acid Calcium Phosphorus Total Creatine Kinase C-Reactive Protein Total Protein Albumin Urine WBC (Auto) Urine Creatinine Urine Total Protein Salicylates Acetaminophen 11/15/18 11/16/18 11/16/18 05:30 00:03 01:19 WBC RBC 3.19 L Hgb 9.4 L Hct 29.3 L Plt Count [place] % (Auto) Lymph # Seg Neutrophils % PT INR POC ABG pH POC ABG pCO2 POC ABG pO2 Sodium Potassium Chloride Carbon Dioxide BUN Creatinine Glucose POC Glucose 122 H 115 H Lactic Acid Calcium Phosphorus Total Creatine Kinase C-Reactive Protein Total Protein Albumin Urine WBC (Auto) Urine Creatinine Urine Total Protein Salicylates Acetaminophen 11/16/18 11/16/18 11/16/18 05:07 11:07 12:13 WBC RBC Hgb Hct Plt Count [place] % (Auto) Lymph # Seg Neutrophils % PT INR POC ABG pH POC ABG pCO2 POC ABG pO2 Sodium 151 H Potassium Chloride 119.5 H Carbon Dioxide BUN 39 H Creatinine 2.2 H Glucose 123 H POC Glucose 110 H 146 H Lactic Acid Calcium Phosphorus Total Creatine Kinase C-Reactive Protein Total Protein Albumin Urine WBC (Auto) Urine Creatinine Urine Total Protein Salicylates Acetaminophen 11/16/18 11/17/18 11/17/18 18:02 00:00 05:51 WBC RBC Hgb Hct Plt Count [place] % (Auto) Lymph # Seg Neutrophils % PT INR POC ABG pH POC ABG pCO2 POC ABG pO2 Sodium Potassium Chloride Carbon Dioxide BUN Creatinine Glucose POC Glucose 129 H 111 H 137 H Lactic Acid Calcium Phosphorus Total Creatine Kinase C-Reactive Protein Total Protein Albumin Urine WBC (Auto) Urine Creatinine Urine Total Protein Salicylates Acetaminophen 11/17/18 11/17/18 11/17/18 12:01 12:22 17:45 WBC RBC Hgb Hct Plt Count [place] % (Auto) Lymph # Seg Neutrophils % PT INR POC ABG pH POC ABG pCO2 POC ABG pO2 Sodium 146 H Potassium Chloride 115.1 H Carbon Dioxide BUN 35 H Creatinine 2.0 H Glucose 142 H POC Glucose 139 H 132 H Lactic Acid Calcium Phosphorus Total Creatine Kinase C-Reactive Protein Total Protein Albumin Urine WBC (Auto) Urine Creatinine Urine Total Protein Salicylates Acetaminophen 11/18/18 11/18/18 11/18/18 00:11 05:32 11:39 WBC RBC Hgb Hct Plt Count [place] % (Auto) Lymph # Seg Neutrophils % PT INR POC ABG pH POC ABG pCO2 POC ABG pO2 Sodium Potassium Chloride Carbon Dioxide BUN Creatinine Glucose POC Glucose 159 H 140 H 153 H Lactic Acid Calcium Phosphorus Total Creatine Kinase C-Reactive Protein Total Protein Albumin Urine WBC (Auto) Urine Creatinine Urine Total Protein Salicylates Acetaminophen 11/18/18 11/18/18 11/18/18 16:22 16:22 17:25 WBC RBC 2.85 L Hgb 8.4 L Hct 25.7 L Plt Count [place] % (Auto) Lymph # Seg Neutrophils % PT INR POC ABG pH POC ABG pCO2 POC ABG pO2 Sodium Potassium Chloride 110.7 H Carbon Dioxide BUN 30 H Creatinine 1.7 H Glucose 145 H POC Glucose 150 H Lactic Acid Calcium Phosphorus Total Creatine Kinase C-Reactive Protein Total Protein Albumin Urine WBC (Auto) Urine Creatinine Urine Total Protein Salicylates Acetaminophen 11/18/18 11/19/18 11/19/18 23:44 05:01 05:01 WBC RBC 2.94 L Hgb 8.5 L Hct 26.5 L Plt Count [place] % (Auto) Lymph # Seg Neutrophils % PT INR POC ABG pH POC ABG pCO2 POC ABG pO2 Sodium Potassium Chloride 108.0 H Carbon Dioxide BUN 23 H Creatinine 1.8 H Glucose 103 H POC Glucose 153 H Lactic Acid Calcium Phosphorus Total Creatine Kinase C-Reactive Protein Total Protein Albumin Urine WBC (Auto) Urine Creatinine Urine Total Protein Salicylates Acetaminophen 11/19/18 11/19/18 11/19/18 05:27 12:30 18:31 WBC RBC Hgb Hct Plt Count [place] % (Auto) Lymph # Seg Neutrophils % PT INR POC ABG pH POC ABG pCO2 POC ABG pO2 Sodium Potassium Chloride Carbon Dioxide BUN Creatinine Glucose POC Glucose 122 H 169 H 139 H Lactic Acid Calcium Phosphorus Total Creatine Kinase C-Reactive Protein Total Protein Albumin Urine WBC (Auto) Urine Creatinine Urine Total Protein Salicylates Acetaminophen 11/19/18 11/20/18 11/20/18 23:26 05:10 05:47 WBC RBC Hgb Hct Plt Count [place] % (Auto) Lymph # Seg Neutrophils % PT INR POC ABG pH POC ABG pCO2 POC ABG pO2 Sodium 136 L Potassium Chloride Carbon Dioxide BUN 30 H Creatinine 1.8 H Glucose 129 H POC Glucose 146 H 136 H Lactic Acid Calcium Phosphorus Total Creatine Kinase C-Reactive Protein Total Protein Albumin Urine WBC (Auto) Urine Creatinine Urine Total Protein Salicylates Acetaminophen 11/20/18 11/20/18 11/20/18 12:01 18:06 23:30 WBC RBC Hgb Hct Plt Count [place] % (Auto) Lymph # Seg Neutrophils % PT INR POC ABG pH POC ABG pCO2 POC ABG pO2 Sodium Potassium Chloride Carbon Dioxide BUN Creatinine Glucose POC Glucose 170 H 118 H 106 H Lactic Acid Calcium Phosphorus Total Creatine Kinase C-Reactive Protein Total Protein Albumin Urine WBC (Auto) Urine Creatinine Urine Total Protein Salicylates Acetaminophen 11/21/18 11/21/18 11/21/18 05:05 11:39 17:54 WBC RBC Hgb Hct Plt Count [place] % (Auto) Lymph # Seg Neutrophils % PT INR POC ABG pH POC ABG pCO2 POC ABG pO2 Sodium Potassium Chloride 108.2 H Carbon Dioxide BUN 31 H Creatinine 1.9 H Glucose POC Glucose 140 H 120 H Lactic Acid Calcium Phosphorus Total Creatine Kinase C-Reactive Protein Total Protein Albumin Urine WBC (Auto) Urine Creatinine Urine Total Protein Salicylates Acetaminophen 11/21/18 11/22/18 21:47 07:42 WBC RBC Hgb Hct Plt Count [place] % (Auto) Lymph # Seg Neutrophils % PT INR POC ABG pH POC ABG pCO2 POC ABG pO2 Sodium Potassium Chloride 108.5 H Carbon Dioxide BUN 27 H Creatinine 1.9 H Glucose POC Glucose 112 H Lactic Acid Calcium 10.5 H Phosphorus Total Creatine Kinase C-Reactive Protein Total Protein Albumin Urine WBC (Auto) Urine Creatinine Urine Total Protein Salicylates Acetaminophen Allied health notes reviewed: nursing
--- NOTE | 2018-11-22 10:00 | Discharge Summary ---
Providers - Providers Date of Admission: 11/05/18 17:52 Attending physician: RUDI FOLEY MD 11/05/18 16:21 Consult to Dietitian/Nutrition [CONS] Routine Physician Instructions: Reason For Exam: Reason for Consult: Evaluate nutritional intake Consult to Physician [CONS] Urgent Comment: DR TESS MCKINLEY W/DR DAVEY @[id number] Consulting Provider: ASHA BREWER Physician Instructions: Reason For Exam: resp failure 11/05/18 16:24 Consult to Physician [CONS] Stat Comment: DR TESS MCKINLEY W/DR BYERS @[id number] Consulting Provider: ANNABEL BYERS Physician Instructions: Reason For Exam: ams sz sepsis ams lnwt 1300 11/06/18 09:10 Consult to Dietitian/Nutrition [CONS] Routine Physician Instructions: Reason For Exam: Reason for Consult: Write/Manage Tube Feeding 11/06/18 09:20 Consult to Physician [CONS] Routine Comment: Consulting Provider: PRATIMA MEDINA Physician Instructions: Reason For Exam: [place] 11/06/18 09:22 Consult to Physician [CONS] Routine Comment: Consulting Provider: RACQUEL MURRAY Physician Instructions: Reason For Exam: sepsis 11/06/18 13:21 Consult to Physician [CONS] Routine Comment: Consulting Provider: DORCAS SHAY Physician Instructions: Reason For Exam: ams 11/07/18 11:49 Consult to Dietitian/Nutrition [CONS] Routine Physician Instructions: Assess nutrtn needs, initiate, modify, manage TF Reason For Exam: Reason for Consult: Write/Manage Tube Feeding Reason for Consult: Write/Manage Tube Feeding 11/12/18 11:20 PICC Line Placement [Consult to PICC Line RN] [CONS] Urgent Reason For Exam: abx Type Line:: Midline 11/12/18 12:36 Speech Therapy Evaluation and Treat [CONS] Routine Reason For Exam: swallowing/deconditioning ( failed screen) 11/14/18 09:34 Physical Therapy Evaluation and Treat [CONS] Routine Comment: Reason For Exam: debility 11/14/18 09:35 Occupational Therapy Evaluate and Treat [CONS] Routine Comment: Reason For Exam: debility 11/15/18 13:33 Speech Therapy Evaluation and Treat [CONS] Routine Reason For Exam: swallow eval 11/15/18 15:19 Consult to Dietitian/Nutrition [CONS] Stat Physician Instructions: Reason For Exam: Reason for Consult: Write/Manage Tube Feeding 11/16/18 07:39 Consult to Dietitian/Nutrition [CONS] Routine Physician Instructions: Assess nutrtn needs, initiate, modify, manage TF Reason For Exam: Reason for Consult: Write/Manage Tube Feeding Reason for Consult: Write/Manage Tube Feeding 11/17/18 17:21 Speech Therapy Evaluation and Treat [CONS] Routine Reason For Exam: failed swallow screen [facility] Reason for admission: Sepsis Condition: Stable Hospital course: Patient is a 82 yo woman (No prior admission here for review, first visit in our EMR. Also, her is in Hospice for metastatic cancer per son Lauro) with a history of hypertension, dyslipidemia, OA s/p bilateral TKR and po ssible CHF who presented to [facility] ED with AMS. Apparently, patient was found unresponsive in the bed and seizing. On EMS arrival patient was noted to have a GCS of 3 and was placed on oxygen mask and intubated in the ED on arrival 11/05/18. Initial Temp was noted as 102.2. In the ED patient was intubated due to AMS and Acute Hypoxemic Respiratory Failure, and is unable to protect her airway, Teleneurology consulted in ED. Pt deemed not a candidate for TPA. Initially pCXR on 11/05/18 showed ETT in good position, no other significant findings, CT abd/pelvis without contrast showed mild bibasilar lung atelectasis as well as mildly distended gallbladder with minimal cholelithiasis. 11/10/18 pCXR showed developing Atelectasis and bilateral pleural effusion. Then pCXR on 11/11/18 showed increasing pleural parenchymal opacity LLL. Patient was eventually extubated on 11/11/18 and placed on bipap 50%. Then on 11/13/18 bipap removed in AM and patient transferred out of the ICU to [facility]. * Renal us: Small left renal cyst, negative for obstruction or mass * MRI Head: negative for acute pathology * Culture: Staph homis in blood * MSSA trach culture * CT chest wo contrast 11/11/18 IMPRESSION: Small pleural effusions, left greater than right. Basilar consolidation is probably secondary to atelectasis and less likely pneumonia. The remainder of the lungs appear clear. 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 Patient remains on Neb tx MSSA Sepsis Left Lobar Pneumonia: treated with Abx, ID following. cultures grew staph homis Staph Hominis Bacteremia: Repeat blood cultures negative, Hyperkalemia: treated with kayexalate and monitor bmp closely, Acute cystitis: treated with Abx, monitor bmp closely Hypertensive Urgency: Resume Coreg, Hydrazine Status Epilepticus, poa: Neurology is following, treat with prn IV ativan Lactic Acidosis, treated along with renal failure Hypernatermia resolved: monitor bmp closely Acute Metabolic Encephalopathy Thrombocytopenia; improving, monitor CBC closely ARF due to suspect ATN, poa: Nephrology following. Dysphagia, failed swallow evaluation initally, but now cleared for gi soft: dobhuff and speech therapy Critical care mayopathy: Improving with pt/ot Bolton removed after 24hr urine collection with a Purex in Left arm swollen: venous doppler ordered which was negative for DVT Disposition: DC/TX-03 SNF W [facility] Time spent for discharge: 35 mins Core Measure Documentation - Palliative Care Palliative Care/ Comfort Measures: Not Applicable - Core Measures Any of the following diagnoses?: none Exam - Physical Exam Narrative exam: Gen: ill appearing, mild increase in accessory muscles, NC, more awake today, sitting up by the chair HEENT: NCAT, EOMI, PERRL, OP Clear Neck: supple, no adenopathy, no thyromegaly, no JVD CVS/Heart: Regular tachycardia normal S1S2, pulses present bilaterally Chest/Lungs: tachypneic, diminished bs bilatearal, Symmetrical chest expansion, good air entry bilaterally GI/Abdomen: soft, NTND, good bowel sounds, no guarding or rebound /Bladder: no suprapubic tenderness, no CVA or paraspinal tenderness Extermity/Skin: dependent edema, pale skin MSK: doesn't follow commands Neuro: CN 2-12 grossly intact, not following commands Psych: calm - Constitutional Vitals: Temp Pulse Resp BP Pulse Ox 98.0 F 86 18 138/62 97 11/22/18 02:06 11/22/18 08:53 11/22/18 08:53 11/22/18 02:06 11/22/18 08:53 Plan Activity: advance as tolerated, fall precautions Diet: low fat, advance as tolerated Special Instructions: physical therapy, occupational therapy Additional Instructions: Resume lasix 40mg daily when ok 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
[2018-11-22] MEDS: HumaLOG SUB-Q SCH ×2 (10:04→12:55)
[2018-11-22] MEDS: NEURONTIN PO SCH (10:11)
[2018-11-22] MEDS: COREG PO SCH (10:12)
[2018-11-22] MEDS: PEPCID PO SCH (10:12)
[2018-11-22] MEDS: REQUIP PO SCH ×2 (10:12→13:16)
[2018-11-22] MEDS: PRAVACHOL PO SCH (10:13)
[2018-11-22 10:14] VITALS: BP 143/52
[2018-11-22] MEDS: SODIUM CHLORIDE FLUSH SYRINGE 10 ML IV SCH (10:14)
--- NOTE | 2018-11-22 16:18 | Progress Note ---
Assessment and Plan Assessment and plan: Patient is a 82 yo woman (No prior admission here for review, first visit in our EMR. Also, her is in Hospice for metastatic cancer per son Lauro) with a history of hypertension, dyslipidemia, OA s/p bilateral TKR and possible CHF who presented to [facility] ED with AMS. Apparently, patient was found unresponsive in the bed and seizing. On EMS arrival patient was noted to have a GCS of 3 and was placed on oxygen mask and intubated in the ED on arrival 11/05/18. Initial Temp was noted as 102.2. In the ED patient was intubated due to AMS and Acute Hypoxemic Respiratory Failure, and is unable to protect her airway, Teleneurology consulted in ED. Pt deemed not a candidate for TPA. Initially pCXR on 11/05/18 showed ETT in good position, no other significant findings, CT abd/pelvis without contrast showed mild bibasilar lung atelectasis as well as mildly distended gallbladder with minimal cholelithiasis. 11/10/18 pCXR showed developing Atelectasis and bilateral pleural effusion. Then pCXR on 11/11/18 showed increasing pleural parenchymal opacity LLL. Patient was eventually extubated on 11/11/18 and placed on bipap 50%. Then on 11/13/18 bipap removed in AM and patient transferred out of the ICU to [facility]. * Renal us: Small left renal cyst, negative for obstruction or mass * MRI Head: negative for acute pathology * Culture: Staph homis in blood * MSSA trach culture * CT chest wo contrast 11/11/18 IMPRESSION: Small pleural effusions, left greater than right. Basilar consolidation is probably secondary to atelectasis and less likely pneumonia. The remainder of the lungs appear clear. * 11/07/18 2D ECHO Conclusions: Mild to moderate concentric LVH, est EF 40-45%, left ventricular diastolic filling pattern is c/w pseudonormalization, RVSF mildly reduced, mild TR, small pericardial effusion, circumferential, no evidence of tamponade Acute hypoxic respiratory failure >96 hours, poa: currently extubated on Sunday11/11/18, off Bipap, NOW ON nc AND with good saturation and Pulm is following. No new acute issues, BIPAP QHS MSSA Sepsis Left Lobar Pneumonia: treated with Abx, ID following. Staph Hominis Bacteremia: Repeat blood cultures negative, ID following Hyperkalemia: treated with kayexalate and monitor bmp closely, Nephrology is following Acute cystitis: treated with Abx, monitor bmp closely Hypertensive Urgency: Resume Coreg, Hydrazine Status Epilepticus, poa: Neurology is following, treat with prn IV ativan Lactic Acidosis, treat with renal failure Hypernatermia resolved: monitor bmp closely Acute Metabolic Encephalopathy Thrombocytopenia; improving, monitor CBC closely ARF due to suspect ATN, poa: Nephrology following. Dysphagia, failed swallow evaluation initally, but now cleared for gi soft: dobhuff and speech therapy ICU deconditioning: order pt/ot Bolton removed after 24hr urine collection with a Purex in right EJ removed, midline placed Left arm swollen: venous doppler ordered which was negative for DVT D/C to LTACH once accepted I called [facility] @ then pressed 5, left my number for call back and no one called me back d/w daughter Urmila at bedside Per CM. Ltac and acute rehab denied by insurance company, SNF placement ongoing History Interval history: Patient was seen and examined. Follow-up on current diagnosis of AMS and respiratory failure. No overnight events reported to me. Imaging, nursing note, chart, labs and old chart reviewed. Clinically improving, tolerating diet. unfortunately her today. Condolence offered to patient and family Hospitalist Physical - Physical exam Narrative exam: Gen: ill appearing, mild increase in accessory muscles, NC, more awake today, sitting up by the chair HEENT: NCAT, EOMI, PERRL, OP Clear Neck: supple, no adenopathy, no thyromegaly, no JVD CVS/Heart: Regular tachycardia normal S1S2, pulses present bilaterally Chest/Lungs: tachypneic, diminished bs bilatearal, Symmetrical chest expansion, good air entry bilaterally GI/Abdomen: soft, NTND, good bowel sounds, no guarding or rebound /Bladder: no suprapubic tenderness, no CVA or paraspinal tenderness Extermity/Skin: dependent edema, pale skin MSK: doesn't follow commands Neuro: CN 2-12 grossly intact, not following commands Psych: calm - Constitutional Vitals: Temp Pulse Resp BP Pulse Ox 98.0 F 84 18 143/52 97 07/26/19 02:06 11/22/18 10:12 11/22/18 10:00 11/22/18 10:12 11/22/18 10:00 General appearance: Absent: severe distress Results - Labs CBC & Chem 7: 11/19/18 05:01 11/22/18 07:42 Labs: Laboratory Last Values WBC 5.2 K/mm3 (4.5-11.0) 11/19/18 05:01 RBC 2.94 M/mm3 (3.65-5.03) L 11/19/18 05:01 Hgb 8.5 gm/dl (10.1-14.3) L 11/19/18 05:01 Hct 26.5 % (30.3-42.9) L 11/19/18 05:01 MCV 90 fl (79-97) 11/19/18 05:01 MCH 29 pg (28-32) 11/19/18 05:01 MCHC 32 % (30-34) 11/19/18 05:01 RDW 14.5 % (13.2-15.2) 11/19/18 05:01 Plt Count 159 K/mm3 (140-440) 11/19/18 05:01 Lymph % (Auto) 13.4 % (13.4-35.0) 11/10/18 09:52 [place] % (Auto) 14.8 % (0.0-7.3) H 11/10/18 09:52 Eos % (Auto) 1.6 % (0.0-4.3) 11/10/18 09:52 Baso % (Auto) 0.3 % (0.0-1.8) 11/10/18 09:52 Lymph # 0.6 K/mm3 (1.2-5.4) L 11/10/18 09:52 [place] # 0.7 K/mm3 (0.0-0.8) 11/10/18 09:52 Eos # 0.1 K/mm3 (0.0-0.4) 11/10/18 09:52 Baso # 0.0 K/mm3 (0.0-0.1) 11/10/18 09:52 Seg Neutrophils % 69.9 % (40.0-70.0) 11/10/18 09:52 Seg Neutrophils # 3.2 K/mm3 (1.8-7.7) 11/10/18 09:52 PT 15.2 Sec. (12.2-14.9) H 11/11/18 10:03 INR 1.23 (0.87-1.13) H 11/11/18 10:03 APTT 31.8 Sec. (24.2-36.6) 11/11/18 10:03 Heparin Anti-Xa, Unfract Negative (Negative) 11/08/18 13:49 POC ABG pH 7.415 (7.35-7.45) 11/12/18 04:44 POC ABG pCO2 34.0 (35-45) L 11/12/18 04:44 POC ABG pO2 138 (80-105) H 11/12/18 04:44 POC ABG HCO3 21.8 (22-26 mml/L) 11/12/18 04:44 POC ABG Total CO2 23 (23-27mmol/L) 11/12/18 04:44 POC ABG O2 Sat 99 11/12/18 04:44 POC ABG Base Excess -3 ((-2) - (+3)mmol/L) 11/12/18 04:44 30 % 11/12/18 04:44 Sodium 144 mmol/L (137-145) 11/22/18 07:42 Potassium 5.0 mmol/L (3.6-5.0) 11/22/18 07:42 Chloride 108.5 mmol/L (98-107) H 11/22/18 07:42 Carbon Dioxide 30 mmol/L (22-30) 11/22/18 07:42 11 mmol/L 11/22/18 07:42 BUN 27 mg/dL (7-17) H 11/22/18 07:42 1.9 mg/dL (0.7-1.2) H 11/22/18 07:42 Estimated GFR 25 ml/min 11/22/18 07:42 14 % 11/22/18 07:42 Glucose 87 mg/dL (65-100) 11/22/18 07:42 POC Glucose 138 (70-105) H 11/22/18 11:33 Lactic Acid 0.70 mmol/L (0.7-2.0) 11/09/18 04:12 Calcium 10.5 mg/dL (8.4-10.2) H 11/22/18 07:42 Phosphorus 3.00 mg/dL (2.5-4.5) D 11/08/18 04:27 Magnesium 2.20 mg/dL (1.7-2.3) 11/05/18 16:31 0.40 mg/dL (0.1-1.2) 11/12/18 04:28 AST 27 units/L (5-40) 11/12/18 04:28 ALT 24 units/L (7-56) 11/12/18 04:28 66 units/L (35-129) 11/12/18 04:28 44.0 umol/L (25-60) 11/05/18 17:28 < 7 units/L (30-135) L 11/05/18 16:31 0.019 ng/mL (0.00-0.029) 11/05/18 16:31 3.50 mg/dL (0.00-1.30) H 11/07/18 15:48 5.9 g/dL (6.3-8.2) L 11/12/18 04:28 2.5 g/dL (3.9-5) L 11/12/18 04:28 0.7 % 11/12/18 04:28 See scanned result 11/08/18 13:49 TSH 0.972 mlU/mL (0.270-4.200) 11/05/18 16:31 Yellow (Yellow) 11/05/18 20:47 Slightly-cloudy (Clear) 11/05/18 20:47 5.0 (5.0-7.0) 11/05/18 20:47 Ur Specific [place] 1.016 (1.003-1.030) 11/05/18 20:47 100 mg/dl mg/dL (Negative) 11/05/18 20:47 50 mg/dL (Negative) 11/05/18 20:47 Neg mg/dL (Negative) 11/05/18 20:47 Sm (Negative) 11/05/18 20:47 Pos (Negative) 11/05/18 20:47 Neg (Negative) 11/05/18 20:47 < 2.0 mg/dL (<2.0) 11/05/18 20:47 Ur Leukocyte Esterase Tr (Negative) 11/05/18 20:47 19.0 /HPF (0.0-6.0) H 11/05/18 20:47 4.0 /HPF (0.0-6.0) 11/05/18 20:47 U Epithel Cells (Auto) 1.0 /HPF (0-13.0) 11/05/18 20:47 Few /HPF 11/05/18 20:47 None seen (None Seen) 11/06/18 14:48 2800 ml 11/13/18 11:27 45.0 mg/dL (0.1-20.0) H 11/13/18 11:27 Height (in) 65.0 inches 11/13/18 11:27 Weight (lb) 153.7 lbs 11/13/18 11:27 37 11/13/18 11:27 40 mmol/L 11/06/18 Unknown 68 mg/dL (5-11.8) H 11/06/18 Unknown Clear 11/11/18 Unknown Colorless 11/11/18 Unknown 10 /mm3 (1-10) 11/11/18 Unknown 22 /mm3 (0-0) 11/11/18 Unknown CSF Seg Neutrophils 0 % (0-6) 11/11/18 Unknown 37.8 % (40-80) 11/11/18 Unknown CSF Reactive Lymphs 0 % 11/11/18 Unknown 62.2 % (15-45) 11/11/18 Unknown 0 % 11/11/18 Unknown 0 % 11/11/18 Unknown C 11/11/18 Unknown 77 mg/dL 11/11/18 Unknown 57 mg/dL 11/11/18 Unknown Vancomycin Trough 17.5 ug/mL (5.0-20.0) 11/08/18 21:16 Random Vancomycin 22.4 ug/mL (0-40.0) 11/11/18 05:01 Salicylates < 0.3 mg/dL (2.8-20.0) L 11/05/18 16:31 Acetaminophen < 5.0 ug/mL (10.0-30.0) L 11/05/18 16:31 Plasma/Serum Alcohol < 0.01 % (0-0.07) 11/05/18 16:31 Heparin-induced Plt Ab Negative (Negative) 11/08/18 13:49 UF Heparin High Dose 0 % Release 11/08/18 13:49 KIANNA UFH Low Dose 0.1 0 % Release 11/08/18 13:49 KIANNA UFH Low Dose 0.5 0 % Release 11/08/18 13:49 Enterovirus (PCR) Cmmt See scanned result 11/11/18 Unknown HSV I DNA PCR See scanned result 11/11/18 Unknown HSV II DNA PCR See scanned result 11/11/18 Unknown VZV (Qnt-PCR) See scanned result 11/11/18 Unknown Active Medications - Current Medications Current Medications: Generic Name Dose Route Start Last Admin Trade Name Freq PRN Reason Stop Dose Admin Acetaminophen 650 mg 11/14/18 10:52 Tylenol PO Q6H PRN Non Cardiac Pain or Temp>100.5 Albuterol 2.5 mg 11/05/18 17:52 11/12/18 20:15 Proventil IH 2.5 mg Q3HRT PRN Administration Shortness Of Breath Lipase/Protease/Amylase 1 each 11/16/18 07:34 Pancreaze 10,500 Unit FEEDTUBE PRN PRN For Clogged Feeding Tube Carvedilol 6.25 mg 11/09/18 11:00 11/22/18 10:12 Coreg PO 6.25 mg BID NIKKO Administration Dextrose 50 ml 11/05/18 17:59 D50w (25gm) Syringe IV PRN PRN Hypoglycemia Famotidine 20 mg 11/11/18 10:00 11/22/18 10:12 Pepcid PO 20 mg DAILY NIKKO Administration Gabapentin 800 mg 11/08/18 10:00 11/22/18 10:11 Neurontin PO 800 mg BID NIKKO Administration Hydralazine HCl 10 mg 11/05/18 21:30 11/17/18 06:15 Apresoline IV 10 mg Q6HR PRN Administration Hypertension Hydrophilic Ointment 1 applic 11/05/18 16:21 Vaseline Lip Therapy TP Q2HR PRN Dry Lips Dextrose/Sodium Chloride 1,000 mls @ 50 mls/hr 11/15/18 13:00 11/20/18 00:00 D5/0.45ns IV 50 mls/hr DIRECT NIKKO Administration Insulin Human Lispro 0 unit 11/21/18 16:30 11/22/18 12:55 Humalog SUB-Q Not Given ACHS NIKKO Protocol Latanoprost 1 drops 11/08/18 18:00 11/21/18 17:50 Latanoprost 0.005% OU 1 drops QPM NIKKO Administration Miscellaneous Medication 1 drop 11/08/18 22:00 11/21/18 21:49 Brimonidine Tartate OP Not Given BID NIKKO Miscellaneous Medication 1 drop 11/16/18 22:00 11/21/18 21:48 Brimonidine Tartrate [Brimonidine Tartrate 0.2%] OP 1 drop BID NIKKO Administration Morphine Sulfate 1 mg 11/14/18 10:52 11/15/18 09:27 Morphine IV 1 mg Q4H PRN Administration Pain , Severe (7-10) Multi-Ingred Cream/Lotion/Oil/Oint 1 applic 11/05/18 16:21 Artificial Tears Ophth Oint OU Q4HR PRN Dry Eye(s) Pravastatin Sodium 20 mg 11/08/18 10:00 11/22/18 10:13 Pravachol PO 20 mg DAILY NIKKO Administration Ropinirole HCl 1 mg 11/08/18 09:00 11/22/18 13:16 Requip PO 1 mg TID NIKKO Administration Simple Syrup 15 ml 11/16/18 07:34 Simple Syrup FEEDTUBE PRN PRN Hypoglycemia Simple Syrup 30 ml 11/16/18 07:34 Simple Syrup FEEDTUBE PRN PRN Hypoglycemia Sodium Bicarbonate 325 mg 11/16/18 07:34 Sodium Bicarbonate FEEDTUBE PRN PRN For Clogged Feeding Tube Sodium Chloride 10 ml 11/05/18 22:00 11/22/18 10:14 Sodium Chloride Flush Syringe 10 Ml IV 10 ml BID NIKKO Administration Sodium Chloride 10 ml 11/05/18 17:52 Sodium Chloride Flush Syringe 10 Ml IV PRN PRN LINE FLUSH Nutrition/Malnutrition Assess - Dietary Evaluation Nutrition/Malnutrition Findings: Nutrition Notes Start: 11/06/18 16:18 Freq: Status: Active Protocol: Document 11/22/18 14:55 RM (Rec: 11/22/18 15:02 RM [id number]) Nutrition Notes Initial or Follow up Reassessment Current Diagnosis Sepsis,Respiratory Failure Other Pertinent Diagnosis Encephalopathy, Dysphagia Current Diet Cardiac w/Ensure Enlive [place] Labs/Tests Reviewed Pertinent Medications Reviewed Height 5 ft 5 in Weight 80.3 kg [place] Body Weight (kg) 56.81 BMI 29.5 Subjective/Other Information TF D/C'd. Cardiac diet ordered . Pt stated that her appetite is improving and that she ate 50% of her breakfast. Also stated that she drinks half of the Ensure Enlive although she does not care for it that much. Percent of energy/protein needs met: 75%/74% Burn Absent Trauma Absent #1 Nutrition Diagnosis Inadequate oral intake As Evidenced by Signs and Symptoms pt meeting 75% of calorie and 74% of protein needs via PO intake Diagnosis Progress(for reassessment Improved documentation) Is patient on ventilator? No Is Patient Ambulatory and/or Out of Bed Yes REE-([facility]-ambulatory/OOB) [ [id number] [id number]] Calculation Used for Recommendations [facility] Additional Notes Protein Needs: 70-91g (1-1.3g/ kg) Fluid Needs: 1 ml/kcal Nutrition Intervention Change Diet Order: Continue current Nutrition Support: D/C Add Supplement/Snack (indicate name/kcal Ensure Clear BID /protein ) Provides kCal: 480 Provides Protein (gm) 16 Goal #1 Meet at least 75% of calorie and protein needs via PO and ONS intakes Anticipated Discharge Needs: Cardiac diet Follow-Up By: 11/25/18 Additional Comments Follow for PO and ONS intakes
== END 2018-11-22 18:35 | DRG 870 ==
LOC: ED 16:03 → CC1 17:52 → IMCU 11-13 17:41 → 2B-ACE 11-21 19:37
PROVIDERS: ADMIT Internal Medicine; ATTEND Internal Medicine
PROC: 5A1955Z Respiratory Ventilation, Greater than 96 Consecutive Hours (ICD-10-PCS; principal; 2018-11-05)
PROC: 0BH17EZ Insertion of Endotracheal Airway into Trachea, Via Natural or Artificial Opening (ICD-10-PCS; 2018-11-05)
PROC: 4A033R1 Measurement of Arterial Saturation, Peripheral, Percutaneous Approach (ICD-10-PCS; 2018-11-05)
PROC: 5A09357 Assistance with Respiratory Ventilation, Less than 24 Consecutive Hours, Continuous Positive Airway Pressure (ICD-10-PCS; 2018-11-11)
PROC: 009U3ZZ Drainage of Spinal Canal, Percutaneous Approach (ICD-10-PCS; 2018-11-11)
PROC: B01B1ZZ Fluoroscopy of Spinal Cord using Low Osmolar Contrast (ICD-10-PCS; 2018-11-11)
PROC: 5A09357 Assistance with Respiratory Ventilation, Less than 24 Consecutive Hours, Continuous Positive Airway Pressure (ICD-10-PCS; 2018-11-12)
PROC: 05HY33Z Insertion of Infusion Device into Upper Vein, Percutaneous Approach (ICD-10-PCS; 2018-11-13)
PROC: 5A09357 Assistance with Respiratory Ventilation, Less than 24 Consecutive Hours, Continuous Positive Airway Pressure (ICD-10-PCS; 2018-11-13)
PROC: 5A09357 Assistance with Respiratory Ventilation, Less than 24 Consecutive Hours, Continuous Positive Airway Pressure (ICD-10-PCS; 2018-11-14)
PROC: 5A09357 Assistance with Respiratory Ventilation, Less than 24 Consecutive Hours, Continuous Positive Airway Pressure (ICD-10-PCS; 2018-11-16)
PROC: 5A09357 Assistance with Respiratory Ventilation, Less than 24 Consecutive Hours, Continuous Positive Airway Pressure (ICD-10-PCS; 2018-11-17)
DX: A41.01 Sepsis due to Methicillin susceptible Staphylococcus aureus (principal); N17.0 Acute kidney failure with tubular necrosis; G93.41 Metabolic encephalopathy; J96.01 Acute respiratory failure with hypoxia; E87.2 Acidosis; E87.0 Hyperosmolality and hypernatremia; N30.00 Acute cystitis without hematuria; D61.818 Other pancytopenia; I10 Essential (primary) hypertension; I16.0 Hypertensive urgency; G40.901 Epilepsy, unspecified, not intractable, with status epilepticus; R13.10 Dysphagia, unspecified; D69.6 Thrombocytopenia, unspecified; E78.5 Hyperlipidemia, unspecified; E78.00 Pure hypercholesterolemia, unspecified; E87.6 Hypokalemia; Z79.899 Other long term (current) drug therapy; Z88.8 Allergy status to other drugs, medicaments and biological substances
CPT/HCPCS: 36415; 36600; 62270; 70450; 70551; 71045; 71250; 74018; 74176; 76770; 77003; 80048; 80053; 80202; 80320; 81001; 82140; 82550; 82565; 82570; 82575; 82803; 82947; 82962; 83735; 84100; 84132; 84156; 84160; 84300; 84443; 84484; 85025; 85027; 85610; 85730; 86022; 86140; 87040; 87070; 87076; 87086; 87116; 87186; 87205; 87498; 87799; 89050; 89051; 93005; 93010; 93306; 93970; 94002; 94003; 94640; 94660; 94760; 95819; G0378; A9270-GY; G0480; J0360; J0692; J0696; J1644; J1815; J1940; J1953; J2001; J2060; J2250; J2270; J3010; J3370; J3480; J7030; J7040; J7050